=== PATIENT | male | born 1940 | race Caucasian/White ===

== ENCOUNTER → 2016-09-19 | Outpatient (CLI) | payer OTHER ==
[~2016-09-19] MED LIST: ACET-1311 PO; ALBU1AER9 PO; ALFU10TA30 PO; ALLO100T PO; ASPCH81 PO; DIGO0.1267 PO; DOCU100C31 PO; ERGO1CAP41 PO; FLNIN NAE; GABA-112 PO; LEVO88TA PO; LSX40 PO; METO-217 PO; METO2.5T PO; MULT-506 PO; OMEG10007 PO; OPTIRAY 320 IV PRN; POTA20TA16 PO; PRAV20TA2 PO; PRLSR20 PO; SPR25 PO; TRAM-10 PO; WARF5TAB90 PO
--- NOTE | 2016-09-19 14:32 | DIAGNOSTIC IMAGING REPORT ---
CT RIGHT FOOT WITH CONTRAST CT DOSE: 120.92 mGy.cm CLINICAL HISTORY: Nonhealing wound right third toe TECHNIQUE: The patient was scanned in a dynamic helical fashion during intravenous administration of 119 cc Optiray 320. COMPARISON STUDY: None. FINDINGS: There is fatty atrophy of the intrinsic muscles of the foot. There are no fluid collections to indicate an abscess. No air is identified within the soft tissues. There are mild osteoarthritic changes present the level the first metatarsal phalangeal joint. There is soft tissue edema surrounding the middle phalanx of the third toe. Evaluation of the cortex is difficult due to the patient's osteopenia. There is subtle cortical irregularity involving the middle phalanx. This could indicate osteomyelitis given history of a nonhealing wound. An MRI might be considered in follow-up for marrow evaluation. There is soft tissue edema surrounding the interphalangeal joint of the great toe. IMPRESSION: 1. No evidence of abscess 2. No evidence of air within the soft tissues 3. Moderate soft tissue thickening surrounding the interphalangeal joint of the great toe, likely inflammatory 4. Subtle cortical irregularity involving the middle phalanx of the third toe. Given the clinical history this could indicate osteomyelitis. An MRI might be considered in follow-up for marrow evaluation Electronically signed by: Dawood Mota M.D. 09/19/2016 2:31 PM Dictated Date/Time: 09/19/2016 2:19 PM
== END | disposition home or self-care (01) ==
LOC: C.CTS 13:13
PROVIDERS: ATTEND Emergency Medicine
DX: S91.104A Unspecified open wound of right lesser toe(s) without damage to nail, initial encounter (principal); X58.XXXA Exposure to other specified factors, initial encounter

== ENCOUNTER 2018-09-29 14:59 | Inpatient (IN) ==
[2018-09-29] MEDS ORDERED: SODIUM CHLORIDE 0.9% 1000ML 1,000 ML IV SCH ×2 (15:30→17:45)
--- NOTE | 2018-09-29 15:31 | XRay Report ---
XR chest 1V portable CLINICAL HISTORY: weakness mental status change COMPARISON STUDY: 03/08/2016 FINDINGS: Moderate stable cardiomegaly. Diaphragms smooth. Lungs are clear. IMPRESSION: Moderate stable cardiomegaly. Otherwise negative study. The above report was generated using voice recognition software. It may contain grammatical, syntax or spelling errors. Electronically signed by: Aris Tee M.D. 09/29/2018 3:30 PM
--- NOTE | 2018-09-29 15:58 | Emergency Department Note ---
Entered by Virgilio Charlton acting as a scribe for ED Provider Note CHIEF COMPLAINT: Weakness, staring episode, confusion HISTORY OF PRESENT ILLNESS: The patient is a 78 year old male who presents to the Emergency Room via EMS for worsening weakness and possible confusion. The patient's at bedside states the patient attempted to use the restroom and then suddenly became weak and confused. The notes that after he used the restroom he was unable to pull up his own pants or take a step. He was also not responding to her or her daughter's questions normally. This is unusual for the patient. He does have some difficultly walking at baseline, but not to this severity. There were no syncopal event. Upon EMS arrival the patient was found to be significantly tachycardic from the 150s-200s. The patient notes that he has had atrial fibrillation for the past 4-5 years. EMS administered Cardizem and fluids which improved the heart rate significantly. The confirms that the patient has been behaving normally for the past couple of days and has been eating well. He has no history of stents or catheterizations. Pt denies fevers, chills, diaphoresis, visual changes, neck pain, nausea, vomiting, abdominal pain, back pain, melena, hematochezia, urinary symptoms, numbness, weakness, lymphadenopathy, rash, or other complaints. REVIEW OF SYSTEMS: See HPI for pertinent positives and negatives. A total of ten systems were reviewed and were otherwise negative. PMHx/PSHx: A-fib HLD Hypothryroid DM CHF CAD JOHN GERD Appendectomy SOCIAL HISTORY: Patient lives at home with . PHYSICAL EXAM: GENERAL: Awake, alert, well-appearing, in no distress HENT: Normocephalic, atraumatic. Oropharynx unremarkable. EYES: PERRL. Normal conjunctiva. Sclera non-icteric. NECK: Inspection normal. Non-tender. Supple. No nuchal rigidity. FROM. No masses. RESPIRATORY: Clear to auscultation. No wheezes. No rales. Normal respiratory effort. CARDIAC: Tachycardic rate. Irregular rhythm. No murmurs. No rubs. Extremities warm and well perfused. Pulses equal. No JVD. GI: Soft, non-distended. No tenderness to palpation. No rebound or guarding. No masses. RECTAL: Deferred. MUSCULOSKELETAL: Atraumatic. Chest examination reveals no tenderness. The back is symmetrical on inspection without obvious abnormality. There is no CVA tenderness to palpation. No joint edema. LOWER EXTREMITIES: Calves are equal size bilaterally and non-tender. No edema. No discoloration. NEURO: Normal sensorium. No sensory or motor deficits noted. SKIN: No rash or jaundice noted. There is chronic venous statsis discoloration to BLE. SECONDARY EXAM: The right leg shows warmth and erythema from the Achilles up to the back of the right knee. The area is mildly tender. EMERGENCY DEPARTMENT COURSE: 1503: Past medical records reviewed. The patient was evaluated in room B8, and a complete history and physical examination were performed. 1636: I updated the patient at this time. The informed me that the patient has been complaining of pain to the back of the right leg. The right leg shows warmth and erythema from the Achilles up to the back of the right knee. The area is mildly tender. The adds that this was not there last night. 1700: I reviewed the patient's case with Brionna Ly [facility] Hospitalist ZULY. She will evaluate the patient for further management. MEDICAL DECISION MAKING: Prior records/ancillary studies reviewed. Prehospital medical command was done by me. The patient was in a irregular wide-complex tachycardia. Prior records indicated the patient had A. fib with aberrant conduction as well as PVCs. The patient had normal saline and Cardizem administered under my direction. This helped control his heart rate. His blood pressure was adequate. Nursing notes reviewed and agree them. Additional history obtained from the patient's . The patient was generally weak. He was not responding to her. He was pale. She denied any true complete syncope. The patient's history was concerning for altered mental status, weakness, and tachycardia. Differential diagnosis: Etiologies such as dysrhythmia, CVA, TIA, infection, hypoglycemia, electrolyte abnormalities, cardiac sources, intracerebral event, toxicologic, neurologic, as well as others were entertained. Physical examination: As above. Nonfocal. No drift. ER treatment provided: IV Lock Continuous desk monitor Normal saline hydration at 125 mL an hour Normal saline bolus IV Rocephin IV daptomycin On reassessment the patient felt better. Diagnostics interpretation by me: ECG: A. fib with RVR. No acute ischemia seen. The labs revealed a significant leukocytosis of 27,000. The patient's lactate level was elevated. Chemistry panel revealed hyperglycemia. Hyponatremia noted chemistry panel. Minimal elevation of LFTs. Ketosis without acidosis present. The patient has a therapeutic INR. Imaging studies: Head CT and chest x-ray were negative. Consultation: A consultation was placed with the hospitalist. The case was discussed and diagnostics were reviewed. The patient was evaluated in the ER for further treatment. IMPRESSION: A. fib with RVR Right leg cellulitis Sepsis Altered mental status Generalized weakness Near syncope PLAN: Admitted to [facility] service The scribe's documentation has been prepared under my direction and personally reviewed by me in its entirety. I confirm that the note above accurately reflects all work, treatment, procedures, and medical decision making performed by me. Impression & Plan Atrial fibrillation with RVR, Altered mental status, Weakness, LBBB (left bundle branch block), Cellulitis of right leg Past Med/Surg History Social History Current Living Situation: Family Other Information That Helps Us Care for You: No Feels Safe at Home: Yes Safety Concerns: Feels Safe At This Time Smoking Status: Never smoker Hx Alcohol Use: No Hx Substance Use: No Beliefs That Will Affect Care: None Preferred Language: Persian Communication Ability: Effective Business Support Manager Required: No Results & Data Vital Signs Vital Signs - 24 hr 09/29/18 15:11 09/29/18 15:16 09/29/18 15:18 Temperature 37.0 C Temperature Source Oral Sepsis Recent Fever Within 48 Hours No Sepsis New/Unexplained Change in Mental Status No Sepsis Action Taken by Nursing No Action Required Pulse Rate 106 H 95 H Pulse Rate [Right Radial] Respiratory Rate 26 H 24 Respiratory Effort / Characteristics Non-Labored Spontaneous Respiratory Depth Normal Respiratory Pattern Blood Pressure 104/75 104/75 Blood Pressure [Right Arm] Blood Pressure Mean 84 84 Blood Pressure Mean [Right Arm] Pulse Oximetry 94 93 93 Oxygen Delivery Method Room Air Room Air 09/29/18 15:19 09/29/18 15:30 09/29/18 16:00 Temperature Temperature Source Sepsis Recent Fever Within 48 Hours Sepsis New/Unexplained Change in Mental Status Sepsis Action Taken by Nursing Pulse Rate 100 H 95 H 90 Pulse Rate [Right Radial] Respiratory Rate 30 H 29 H 21 Respiratory Effort / Characteristics Respiratory Depth Respiratory Pattern Blood Pressure 127/69 Blood Pressure [Right Arm] Blood Pressure Mean 88 Blood Pressure Mean [Right Arm] Pulse Oximetry 94 Oxygen Delivery Method 09/29/18 16:01 09/29/18 16:34 09/29/18 16:35 Temperature Temperature Source Sepsis Recent Fever Within 48 Hours Sepsis New/Unexplained Change in Mental Status Sepsis Action Taken by Nursing Pulse Rate 104 H 95 H 100 H Pulse Rate [Right Radial] Respiratory Rate 25 H 10 L 18 Respiratory Effort / Characteristics Respiratory Depth Respiratory Pattern Blood Pressure 148/71 H 116/62 Blood Pressure [Right Arm] Blood Pressure Mean 96 80 Blood Pressure Mean [Right Arm] Pulse Oximetry 95 94 Oxygen Delivery Method 09/29/18 17:00 09/29/18 17:30 09/29/18 18:00 Temperature Temperature Source Sepsis Recent Fever Within 48 Hours Sepsis New/Unexplained Change in Mental Status Sepsis Action Taken by Nursing Pulse Rate 105 H 98 H 90 Pulse Rate [Right Radial] Respiratory Rate 19 17 21 Respiratory Effort / Characteristics Respiratory Depth Respiratory Pattern Blood Pressure 110/75 122/75 Blood Pressure [Right Arm] Blood Pressure Mean 86 90 Blood Pressure Mean [Right Arm] Pulse Oximetry 95 95 96 Oxygen Delivery Method 09/29/18 18:01 09/29/18 18:30 09/29/18 19:00 Temperature Temperature Source Sepsis Recent Fever Within 48 Hours Sepsis New/Unexplained Change in Mental Status Sepsis Action Taken by Nursing Pulse Rate 94 H 96 H 97 H Pulse Rate [Right Radial] Respiratory Rate Respiratory Effort / Characteristics Respiratory Depth Respiratory Pattern Blood Pressure 120/67 126/76 Blood Pressure [Right Arm] Blood Pressure Mean 84 92 Blood Pressure Mean [Right Arm] Pulse Oximetry 97 96 97 Oxygen Delivery Method 09/29/18 19:01 09/29/18 19:30 09/29/18 20:00 Temperature Temperature Source Sepsis Recent Fever Within 48 Hours Sepsis New/Unexplained Change in Mental Status Sepsis Action Taken by Nursing Pulse Rate 93 H 80 88 Pulse Rate [Right Radial] Respiratory Rate 18 19 22 Respiratory Effort / Characteristics Respiratory Depth Respiratory Pattern Blood Pressure 98/62 L Blood Pressure [Right Arm] Blood Pressure Mean 74 Blood Pressure Mean [Right Arm] Pulse Oximetry 96 97 95 Oxygen Delivery Method 09/29/18 20:21 09/29/18 21:01 09/29/18 21:43 Temperature 37.9 C H 37.9 C H Temperature Source Oral Oral Sepsis Recent Fever Within 48 Hours Sepsis New/Unexplained Change in Mental Status Sepsis Action Taken by Nursing Pulse Rate 89 Pulse Rate [Right Radial] 95 H Respiratory Rate 12 16 18 Respiratory Effort / Characteristics Non-Labored Respiratory Depth Normal Normal Respiratory Pattern Regular Blood Pressure 100/70 Blood Pressure [Right Arm] 115/69 115/69 Blood Pressure Mean Blood Pressure Mean [Right Arm] 84 84 Pulse Oximetry 95 93 93 Oxygen Delivery Method Room Air Room Air Room Air Home Medications Current Medication List: was personally reviewed by me Laboratory Data Attestation: I reviewed the patient's lab results. Result diagrams: 09/29/18 15:44 09/29/18 15:44 Lab Results 09/29/18 09/29/18 09/29/18 Range/Units 15:44 15:44 15:44 WBC 27.21 H (4.8-10.8) K/uL RBC 4.96 (4.7-6.1) M/uL Hgb 17.2 (14.0-18.0) g/dL Hct 48.6 (42-52) % MCV 98.0 (80-100) fL MCH 34.7 H (25-34) pg MCHC 35.4 (32-36) g/dL RDW Std Deviation 49.7 H (36.4-46.3) fL RDW Coeff of Shilpi 13.9 (11.5-14.5) % Plt Count 131 (130-400) K/uL MPV 11.9 H (7.4-10.4) fL Immature Gran % (Auto) 0.5 % Neut % (Auto) 84.9 % Lymph % (Auto) 7.7 % [place] % (Auto) 6.7 % Eos % (Auto) 0.1 % Baso % (Auto) 0.1 % Immature Gran # (Auto) 0.13 H (0.00-0.02) K/uL Neut # (Auto) 23.12 H (1.4-6.5) K/uL Lymph # (Auto) 2.09 (1.2-3.4) K/uL [place] # (Auto) 1.82 H (0.11-0.59) K/uL Eos # (Auto) 0.02 (0-0.5) K/uL Baso # (Auto) 0.03 (0-0.2) K/uL PT 26.6 H (9.0-12.0) Seconds INR 2.8 H (0.9-1.1) Sodium 128 L (136-145) mmol/L Potassium 4.4 (3.5-5.1) mmol/L Chloride 95 L (98-107) mmol/L Carbon Dioxide 23 (21-32) mmol/L Anion Gap 10.0 (3-11) BUN 29 H (7-18) mg/dl Creatinine 1.20 (0.6-1.4) mg/dl Est Cr Clr Drug Dosing 68.6 ml/min Est GFR ( Amer) 66.7 Est GFR (Non-Af Amer) 57.6 BUN/Creatinine Ratio 24.0 H (10-20) Glucose 310 H (70-99) mg/dl POC Glucose (70-99) POC Lactic Acid Theo (0.90-1.70) mmol/L Lactate (0.4-2.0) mmol/L Calcium 8.1 L (8.5-10.1) mg/dl Magnesium 1.8 (1.8-2.4) mg/dl Total Bilirubin 1.1 H (0.2-1) mg/dl AST 43 H (15-37) U/L ALT 53 (12-78) U/L Alkaline Phosphatase 97 (45-117) U/L Total Creatine Kinase 50 (39-308) U/L Troponin I < 0.015 (0-0.045) ng/ml Total Protein 7.0 (6.4-8.2) gm/dl Albumin 3.5 (3.4-5.0) gm/dl Globulin 3.5 (2.5-4.0) gm/dl Albumin/Globulin Ratio 1.0 (0.9-2) Beta-Hydroxybutyric Acd 3.88 H (0.2-2.81) mg/dl TSH 1.130 (0.300-4.500) uIu/ml Urine Color Urine Appearance (Clear) Urine pH (4.5-7.5) Ur Specific [place] (1.000-1.030) Urine Protein (Negative) Urine Glucose (UA) (Negative) Urine Ketones (Negative) Urine Blood (Negative) Urine Nitrite (Negative) Urine Bilirubin (Negative) Urine Urobilinogen (Negative) Ur Leukocyte Esterase (Negative) Urine WBC (Auto) (0-5) /hpf Urine RBC (Auto) (0-4) /hpf U Hyaline Cast (Auto) (0-5) /lpf U Epithel Cells (Auto) (0-5) /lpf Urine Bacteria (Auto) (Negative) Digoxin (0.8-2.0) ng/ml 09/29/18 09/29/18 09/29/18 Range/Units 17:26 18:48 21:22 WBC (4.8-10.8) K/uL RBC (4.7-6.1) M/uL Hgb (14.0-18.0) g/dL Hct (42-52) % MCV (80-100) fL MCH (25-34) pg MCHC (32-36) g/dL RDW Std Deviation (36.4-46.3) fL RDW Coeff of Shilpi (11.5-14.5) % Plt Count (130-400) K/uL MPV (7.4-10.4) fL Immature Gran % (Auto) % Neut % (Auto) % Lymph % (Auto) % [place] % (Auto) % Eos % (Auto) % Baso % (Auto) % Immature Gran # (Auto) (0.00-0.02) K/uL Neut # (Auto) (1.4-6.5) K/uL Lymph # (Auto) (1.2-3.4) K/uL [place] # (Auto) (0.11-0.59) K/uL Eos # (Auto) (0-0.5) K/uL Baso # (Auto) (0-0.2) K/uL PT (9.0-12.0) Seconds INR (0.9-1.1) Sodium (136-145) mmol/L Potassium (3.5-5.1) mmol/L Chloride (98-107) mmol/L Carbon Dioxide (21-32) mmol/L Anion Gap (3-11) BUN (7-18) mg/dl Creatinine (0.6-1.4) mg/dl Est Cr Clr Drug Dosing ml/min Est GFR ( Amer) Est GFR (Non-Af Amer) BUN/Creatinine Ratio (10-20) Glucose (70-99) mg/dl POC Glucose 289 H (70-99) POC Lactic Acid Theo 4.99 H (0.90-1.70) mmol/L Lactate (0.4-2.0) mmol/L Calcium (8.5-10.1) mg/dl Magnesium (1.8-2.4) mg/dl Total Bilirubin (0.2-1) mg/dl AST (15-37) U/L ALT (12-78) U/L Alkaline Phosphatase (45-117) U/L Total Creatine Kinase (39-308) U/L Troponin I (0-0.045) ng/ml Total Protein (6.4-8.2) gm/dl Albumin (3.4-5.0) gm/dl Globulin (2.5-4.0) gm/dl Albumin/Globulin Ratio (0.9-2) Beta-Hydroxybutyric Acd (0.2-2.81) mg/dl TSH (0.300-4.500) uIu/ml Urine Color Yellow Urine Appearance Clear (Clear) Urine pH 5.0 (4.5-7.5) Ur Specific [place] 1.019 (1.000-1.030) Urine Protein Negative (Negative) Urine Glucose (UA) 1+ H (Negative) Urine Ketones Negative (Negative) Urine Blood Negative (Negative) Urine Nitrite Negative (Negative) Urine Bilirubin Negative (Negative) Urine Urobilinogen Negative (Negative) Ur Leukocyte Esterase Trace H (Negative) Urine WBC (Auto) 1-5 (0-5) /hpf Urine RBC (Auto) 0-4 (0-4) /hpf U Hyaline Cast (Auto) 1-5 (0-5) /lpf U Epithel Cells (Auto) 10-20 H (0-5) /lpf Urine Bacteria (Auto) Negative (Negative) Digoxin (0.8-2.0) ng/ml 09/29/18 09/29/18 09/29/18 Range/Units 21:51 21:51 21:51 WBC (4.8-10.8) K/uL RBC (4.7-6.1) M/uL Hgb (14.0-18.0) g/dL Hct (42-52) % MCV (80-100) fL MCH (25-34) pg MCHC (32-36) g/dL RDW Std Deviation (36.4-46.3) fL RDW Coeff of Shilpi (11.5-14.5) % Plt Count (130-400) K/uL MPV (7.4-10.4) fL Immature Gran % (Auto) % Neut % (Auto) % Lymph % (Auto) % [place] % (Auto) % Eos % (Auto) % Baso % (Auto) % Immature Gran # (Auto) (0.00-0.02) K/uL Neut # (Auto) (1.4-6.5) K/uL Lymph # (Auto) (1.2-3.4) K/uL [place] # (Auto) (0.11-0.59) K/uL Eos # (Auto) (0-0.5) K/uL Baso # (Auto) (0-0.2) K/uL PT (9.0-12.0) Seconds INR (0.9-1.1) Sodium (136-145) mmol/L Potassium (3.5-5.1) mmol/L Chloride (98-107) mmol/L Carbon Dioxide (21-32) mmol/L Anion Gap (3-11) BUN (7-18) mg/dl Creatinine (0.6-1.4) mg/dl Est Cr Clr Drug Dosing ml/min Est GFR ( Amer) Est GFR (Non-Af Amer) BUN/Creatinine Ratio (10-20) Glucose (70-99) mg/dl POC Glucose (70-99) POC Lactic Acid Theo (0.90-1.70) mmol/L Lactate 4.5 H* (0.4-2.0) mmol/L Calcium (8.5-10.1) mg/dl Magnesium (1.8-2.4) mg/dl Total Bilirubin (0.2-1) mg/dl AST (15-37) U/L ALT (12-78) U/L Alkaline Phosphatase (45-117) U/L Total Creatine Kinase (39-308) U/L Troponin I < 0.015 (0-0.045) ng/ml Total Protein (6.4-8.2) gm/dl Albumin (3.4-5.0) gm/dl Globulin (2.5-4.0) gm/dl Albumin/Globulin Ratio (0.9-2) Beta-Hydroxybutyric Acd (0.2-2.81) mg/dl TSH (0.300-4.500) uIu/ml Urine Color Urine Appearance (Clear) Urine pH (4.5-7.5) Ur Specific [place] (1.000-1.030) Urine Protein (Negative) Urine Glucose (UA) (Negative) Urine Ketones (Negative) Urine Blood (Negative) Urine Nitrite (Negative) Urine Bilirubin (Negative) Urine Urobilinogen (Negative) Ur Leukocyte Esterase (Negative) Urine WBC (Auto) (0-5) /hpf Urine RBC (Auto) (0-4) /hpf U Hyaline Cast (Auto) (0-5) /lpf U Epithel Cells (Auto) (0-5) /lpf Urine Bacteria (Auto) (Negative) Digoxin 1.1 (0.8-2.0) ng/ml Administered Medications Discontinued Medications Sodium Chloride (Nss 1000ml) 1,000 mls @ 125 mls/hr IV .Q8H GALO Stop: 09/29/18 23:29 Last Admin: 09/29/18 16:35 Dose: 125 mls/hr Ceftriaxone Sodium (Rocephin) 1,000 mg in 50 mls @ 100 mls/hr IV NOW STA Stop: 09/29/18 17:24 Last Infusion: 09/29/18 19:25 Dose: 0 mls/hr Admin: 09/29/18 18:12 Dose: 100 mls/hr Sodium Chloride (Nss 1000ml) 1,000 mls @ 999 mls/hr IV .Q1H1M GALO Stop: 09/29/18 18:45 Last Infusion: 09/29/18 19:25 Dose: 0 mls/hr Admin: 09/29/18 18:12 Dose: 999 mls/hr Daptomycin 575 mg/ Syringe 11.5 mls @ 5.75 mls/min IV NOW ONE Stop: 09/29/18 17:33 Last Admin: 09/29/18 18:12 Dose: 5.75 mls/min Imaging Data Attestation: I personally reviewed and interpreted this imaging study as follows : Radiologist's Impression: CT head/brain wo con CT DOSE: 847.48 mGycm HISTORY: Mental status change AMS TECHNIQUE: Multiaxial CT images of the head were performed without the use of intravenous contrast. A dose lowering technique was utilized adhering to the principles of ALARA. Comparison: 03/10/2016 Findings: The paranasal sinuses and mastoid air cells are clear. The calvarium and skull base are intact. The ventricles and sulci are within normal limits. There is no mass, hematoma, midline shift, or acute infarct. Impression: No acute intracranial abnormality. The above report was generated using voice recognition software. It may contain grammatical, syntax or spelling errors. Electronically signed by: Aris Tee M.D. 09/29/2018 4:36 PM XR chest 1V portable CLINICAL HISTORY: weakness mental status change COMPARISON STUDY: 03/08/2016 FINDINGS: Moderate stable cardiomegaly. Diaphragms smooth. Lungs are clear. IMPRESSION: Moderate stable cardiomegaly. Otherwise negative study. The above report was generated using voice recognition software. It may contain grammatical, syntax or spelling errors. Electronically signed by: Aris Tee M.D. 09/29/2018 3:30 PM ECG Data Attestation: I personally reviewed and interpreted this ECG as follows: Indication: altered mental status and weakness Rate (beats per minute): 108 Rhythm: atrial fibrillation (RVR) Findings: + other (LAD, poor r-wave progression) and + Q waves (inferior); no ST elevation and no ectopy Prescription Drug Monitoring Prescription Drug Findings: Pre-hospital EKG shows A-fib with RVR. LBBB Pattern. Aberrant conduction, no JOSEPH, no PVCs Blood Pressure Blood Pressure Findings: Normal blood pressure Discharge Plan Visit Data *Final* Discharge Date/Time: 09/29/18 20:21 Chief Complaint: Syncope Stated Complaint: syncope ED Provider: Jitendra Perez Discharge Problem: Atrial fibrillation with RVR, Altered mental status, Weakness, LBBB (left bundle branch block), Cellulitis of right leg Patient Disposition: Admitted As Inpatient Discharge Instructions Interventions: ED Discharge Assessment Last Done: 09/29/18 20:21 The scribe's documentation has been prepared under my direction and personally reviewed by me in its entirety. I confirm that the note above accurately reflects all work, treatment, procedures, and medical decision making performed by me.
[2018-09-29 16:05] LABS: Hematocrit (blood only) 48.6 % (42-52); Hemoglobin 17.2 g/dL (14.0-18.0); Mean Corpuscular Hgb Conc 35.4 g/dL (32-36); Mean Platelet Volume 11.9 fL (7.4-10.4); Platelet Count 131 K/uL (130-400); RDW Coefficient of Variation 13.9 % (11.5-14.5); RDW Standard Deviation 49.7 fL (36.4-46.3); Red Blood Count 4.96 M/uL (4.7-6.1); White Blood Count 27.21 K/uL (4.8-10.8)
[2018-09-29 16:06] LABS: INR 2.8 (0.9-1.1); Prothrombin Time 26.6 Seconds (9.0-12.0)
[2018-09-29 16:10] LABS: Alanine Aminotransferase 53 U/L (12-78); Albumin Level 3.5 gm/dl (3.4-5.0); Aspartate Aminotransferase 43 U/L (15-37); Blood Urea Nitrogen 29 mg/dl (7-18); Calcium 8.1 mg/dl (8.5-10.1); Carbon Dioxide 23 mmol/L (21-32); Chloride 95 mmol/L (98-107); Creatinine Clr Calc Pharmacy 68.6 ml/min; Est GFR (African American) 66.7; Est GFR (Non-African American) 57.6; Glucose 310 mg/dl (70-99); Magnesium 1.8 mg/dl (1.8-2.4); Potassium 4.4 mmol/L (3.5-5.1); Sodium 128 mmol/L (136-145)
[2018-09-29 16:13] LABS: Bilirubin,Total 1.1 mg/dl (0.2-1); Globulin 3.5 gm/dl (2.5-4.0)
[2018-09-29 16:16] LABS: Basophils # (auto) 0.03 K/uL (0-0.2); Basophils % (auto) 0.1 %; Eosinophils # (auto) 0.02 K/uL (0-0.5); Eosinophils % (auto) 0.1 %; Immature Granulocytes # (auto) 0.13 K/uL (0.00-0.02); Immature Granulocytes % (auto) 0.5 %; Lymphocytes # (auto) 2.09 K/uL (1.2-3.4); Lymphocytes % (auto) 7.7 %; Monocytes # (auto) 1.82 K/uL (0.11-0.59); Monocytes % (auto) 6.7 %; Neutrophils # (auto) 23.12 K/uL (1.4-6.5); Neutrophils % (auto) 84.9 %
[2018-09-29 16:27] LABS: Alkaline Phosphatase 97 U/L (45-117); Creatine Kinase 50 U/L (39-308); Troponin I < 0.015 ng/ml (0-0.045)
--- NOTE | 2018-09-29 16:38 | CT Scan Report ---
CT head/brain wo con CT DOSE: 847.48 mGycm HISTORY: Mental status change AMS TECHNIQUE: Multiaxial CT images of the head were performed without the use of intravenous contrast. A dose lowering technique was utilized adhering to the principles of ALARA. Comparison: 03/10/2016 Findings: The paranasal sinuses and mastoid air cells are clear. The calvarium and skull base are int act. The ventricles and sulci are within normal limits. There is no mass, hematoma, midline shift, or acute infarct. Impression: No acute intracranial abnormality. The above report was generated using voice recognition software. It may contain grammatical, syntax or spelling errors. Electronically signed by: Aris Tee M.D. 09/29/2018 4:36 PM
[2018-09-29] MEDS ORDERED: cefTRIAXone SODIUM 1,000 MG/50 ML BAG IV STA (16:55)
[2018-09-29] MEDS ORDERED: DAPTOmycin 575 MG in SYRINGE 0 ML IV ONE (17:32)
[2018-09-29 19:05] LABS: Appearance Urine Clear (Clear); Bacteria Urine Automated Negative (Negative); Bilirubin Urine Negative (Negative); Color Urine Yellow; Glucose Urine UA 1+ (Negative); Ketones Urine Negative (Negative); Leukocyte Esterase Urine Trace (Negative); Nitrite Urine Negative (Negative); Protein Urine Negative (Negative); Specific Gravity Urine 1.019 (1.000-1.030); Urobilinogen Urine Negative (Negative)
[2018-09-29] MEDS ORDERED: CARBOHYDRATES FOR HYPOGLYCEMIA PO PRN (21:01)
[2018-09-29] MEDS ORDERED: ACETAMINOPHEN 325 MG TAB PO PRN (21:01)
[2018-09-29] MEDS ORDERED: DEXTROSE 50% 50 ML SYRINGE IV PRN (21:01)
[2018-09-29] MEDS ORDERED: GLUCOSE 40% GEL 15 GM TUBE PO PRN (21:01)
[2018-09-29] MEDS ORDERED: GLUCAGON FOR INJ 1 MG VIAL SQ PRN (21:01)
[2018-09-29] MEDS ORDERED: NITROGLYCERIN SL 0.4 MG/TAB TAB SL PRN (21:01)
[2018-09-29] MEDS ORDERED: GLUCOSE 10 TABS/TUBE PO PRN (21:01)
[2018-09-29] MEDS ORDERED: TRAMADOL HCL 50 MG TABLET PO PRN (21:01)
--- NOTE | 2018-09-29 21:12 | History & Physical Report ---
Date of Service September 29, 2018 Assessment & Plan (1) Atrial fibrillation: Chronic a-fib on coumadin. Onset of AMS with noted A-fib RVR today. Was given Cardizem 10 mg IV and IV fluids in route by EMS. Upon arrival to ER pulse in the 90's-low 100s and patient without any CP, SOB or palpitations. INR: 2.8. Negative initial troponin. TSH: 1.1 Hx echo: 05/2018: EF: 53%, no significant valvular pathology -may be secondary to underlying infection -continue coumadin, monitor INR -Continue metoprolol -Continue digoxin -Pending digoxin level -Echo -Cardiology consult, appreciate recommendations (2) Cellulitis: Noted RLE erythema, warmth and discomfort today WBC: 27, POC lactic acid: 4.9 -In ER given Rocephin, daptomycin, IVF -pending repeat lactic acid -pending blood culture -will hold on further IVF given hx cardiomyopathy -Cefepime, daptomycin -pending doppler RLE to r/o DVT, however INR is Therapeutic -ID consult since on daptomycin (3) Encephalopathy: Reported altered mental status noted today prior to arrival. Upon my assessment in ER pt alert and oriented x 3 and family reports is back to baseline. probable metabolic encephalopathy -monitor (4) Diabetes mellitus, type 2: HbA1c: 8 on 05/21/18 -NovoLog, Lantus sliding scale per protocol (5) Hyponatremia: Na: 131 corrected for glucose: 310 -monitor (6) HTN (hypertension): -continue metoprolol, losartan -will continue lasix, spironolactone in am -is on metolzaone twice weekly, had dose today (7) HLD (hyperlipidemia): -hold statin while on daptomycin (8) Coronary artery disease: No CP. Negative troponin -continue ASA, metoprolol -hold statin while on daptomycin (9) Obstructive sleep apnea: -CPAP HS (10) Gout: -continue allopurinol -hold colchicine and recheck bmp in am (11) Hypothyroidism: TSH: 1.1 -continue levothyroxine (12) BPH (benign prostatic hyperplasia): -continue alfuzosin (13) GERD (gastroesophageal reflux disease): -continue PPI DVT Prophylaxis -On coumadin with therapeutic INR Full Code as per discussion with pt and family, however would not want prolonged life support if poor prognosis Follows with Dr Scherer for routine care Pt was seen with Dr Beckham. See addendum History of Present Illness Chief Complaint: AMS Primary Care Provider: [place] Scherer Pt is 78 y/o M with PMH A-fib s/p cardioversion in 2009, 2012 and unsuccessful in 2013, CAD, h/o nonischemic congestive cardiomyopathy, gout, HTN, HLD, hypothyroidism, DM II, JOHN on CPAP, obesity, venous insufficiency presented to ER with c/o altered mental status, weakness.Reports patient was at baseline this morning and ate breakfast. Reports BSG has been running in 200s and was in 200s today. States patient went to the bathroom and was walking back from bathroom had a near syncopal episode. Generalized weakness and was noted to have altered mental status with confusion. Was found to be in atrial fibrillation with reported rate up to 180s by EMS and was given Cardizem 10 IV and IVF in route. Since arrival to ER patient mental status back to baseline. Patient is denying any CP, SOB, dizziness, palpitations.Reports chronic cough and postnasal drip, denies any increase. Since being in ER has been c/o R lower leg pain and it was noted to have some erythema to RLE. Reports hit right chavez on something a few days ago and has scab. Denies fever/chills, diaphoresis, N/V/ D/C, CORTES,vision changes, neck pain, sore throat, choking, otalgia, abdominal pain , paresthesias, increased extremity edema, other rashes, urinary symptoms. Allergies Allergy/AdvReac Type Severity Reaction Status Date / Time No Known Allergies Allergy Verified 09/29/18 15:36 Home Medications Home Medications Medication Instructions Recorded Confirmed Type albuterol sulfate [ProAir HFA] 2 puff INHALATION QID PRN 09/29/18 09/29/18 History alfuzosin 10 mg PO QPM 09/29/18 09/29/18 History allopurinol 300 mg PO QAM 09/29/18 09/29/18 History aspirin 81 mg PO QAM 09/29/18 09/29/18 History cholecalciferol (vitamin D3) 1,000 units PO QAM 09/29/18 09/29/18 History [Vitamin D3] colchicine [Colcrys] 0.6 mg PO BID 09/29/18 09/29/18 History diclofenac sodium 2 g TOPICAL QID 09/29/18 09/29/18 History digoxin 250 mcg PO 5XWK 09/29/18 09/29/18 History docusate sodium 100 mg PO QAM 09/29/18 09/29/18 History fluticasone [Flonase Allergy 2 spray INTRANASAL BID PRN 09/29/18 09/29/18 History Relief] furosemide 40 mg PO QPM 09/29/18 09/29/18 History furosemide 80 mg PO QAM 09/29/18 09/29/18 History gabapentin 100 mg PO BID 09/29/18 09/29/18 History levothyroxine 88 mcg PO QAM 09/29/18 09/29/18 History losartan 12.5 mg PO QAM 09/29/18 09/29/18 History metformin 500 mg PO DAILY 09/29/18 09/29/18 History metolazone 2.5 mg PO 2XWK 09/29/18 09/29/18 History metoprolol succinate 100 mg PO QPM 09/29/18 09/29/18 History metoprolol succinate 150 mg PO QAM 09/29/18 09/29/18 History multivitamin 1 tab PO QAM 09/29/18 09/29/18 History omeprazole 20 mg PO QAM 09/29/18 09/29/18 History potassium chloride [Klor-Con M20] 10 meq PO 2XWK 09/29/18 09/29/18 History potassium chloride [Klor-Con M20] 40 meq PO QAM 09/29/18 09/29/18 History pravastatin 40 mg PO HS 09/29/18 09/29/18 History spironolactone 25 mg PO BID 09/29/18 09/29/18 History tramadol 50 mg PO BID PRN 09/29/18 09/29/18 History warfarin 2.5 mg PO 2XWK 09/29/18 09/29/18 History warfarin 5 mg PO 5XWK 09/29/18 09/29/18 History Past Med/Surg History Medical History BPH (benign prostatic hyperplasia) (Chronic) Gout (Chronic) HLD (hyperlipidemia) (Chronic) HTN (hypertension) (Chronic) Atrial fibrillation (Chronic) Dyslipidemia (Chronic) Hypothyroidism (Chronic) History of adenomatous polyp of colon (Chronic) Diabetes mellitus, type 2 (Chronic) History of basal cell carcinoma (Chronic) Systolic CHF, chronic (Chronic) Obstructive sleep apnea (Chronic) Coronary artery disease (Chronic) "nonocclusive disease per cardiac cath 2009" GERD (gastroesophageal reflux disease) (Chronic) Pulmonary nodule (Chronic) "6 mm RLL; incidental finding on CT abdomen 03/07/16" Diabetic peripheral neuropathy associated with type 2 diabetes mellitus Cellulitis Hyponatremia Surgical History Status post appendectomy (Chronic) Status post inguinal hernia repair (Chronic) Family History Other HTN (hypertension) Stroke Social History Current Living Situation: Family Other Information That Helps Us Care for You: No Feels Safe at Home: Yes Safety Concerns: Feels Safe At This Time Smoking Status: Never smoker Hx Alcohol Use: No Hx Substance Use: No Beliefs That Will Affect Care: None Communication Ability: Effective Review of Systems All systems reviewed & are unremarkable except as noted in HPI & below Physical Exam 2 Vital Signs (Past 24 Hours): Last Vital Signs Temp 37.0 C 09/29/18 15:16 Pulse 89 09/29/18 20:21 Resp 12 09/29/18 20:21 BP 100/70 09/29/18 20:21 Pulse Ox 95 09/29/18 20:21 Physical Exam: General: no acute distress, WDWN Head: normocephalic, atraumatic Eyes: PERRL, EOM's intact, conjunctiva non-injected, anicteric ENT: normal inspection external ears, nose, mucous membranes moist Neck: supple, trachea midline Lungs: clear, no respiratory distress, no wheezing/rhonchi/rales CV: irregularly irregular, rate 90, no significant pretibial edema Abd: normal BS, soft, non-tender Ext:chronic venous stasis changes bilateral lower extremities, R lower leg with erythema and warmth and tenderness to palpation, +scabs noted anterior right lower leg, ROM intact, distal pulses intact, brisk capillary refill Neuro: A&O x 3, no focal deficits noted, normal affect Skin: warm, dry, RLE as above Results & Data Laboratory Results Short CBC 09/29/18 Range/Units 15:44 WBC 27.21 H (4.8-10.8) K/uL Hgb 17.2 (14.0-18.0) g/dL Hct 48.6 (42-52) % Plt Count 131 (130-400) K/uL BMP 09/29/18 15:44 Sodium 128 L Potassium 4.4 Chloride 95 L Carbon Dioxide 23 BUN 29 H Creatinine 1.20 Glucose 310 H Calcium 8.1 L Cardiac Enzymes 09/29/18 Range/Units 15:44 Total Creatine Kinase 50 (39-308) U/L Troponin I < 0.015 (0-0.045) ng/ml Liver Function 09/29/18 Range/Units 15:44 Total Bilirubin 1.1 H (0.2-1) mg/dl AST 43 H (15-37) U/L ALT 53 (12-78) U/L Alkaline Phosphatase 97 (45-117) U/L Albumin 3.5 (3.4-5.0) gm/dl Urine 09/29/18 Range/Units 18:48 Urine Color Yellow Urine Appearance Clear (Clear) Urine pH 5.0 (4.5-7.5) Ur Specific [place] 1.019 (1.000-1.030) Urine Protein Negative (Negative) Urine Glucose (UA) 1+ H (Negative) Diagnostic Findings CT HEAD: Impression: No acute intracranial abnormality. CXR: IMPRESSION: Moderate stable cardiomegaly. Otherwise negative study. ECG Additional Comments: Read by cardiology: Atrial fibrillation with rapid ventricular response Left axis deviation Inferior infarct , age undetermined Possible Anterior infarct , age undetermined Abnormal ECG When compared with ECG of 18-FEB-2018 01:47, Non-specific change in ST segment in Inferior leads Confirmed by JAYDEN BRIONES ([id number]) on 09/29/2018 4:39:20 PM Supervising Physician Co-Signing Physician Notes Pt was seen and examined. Agreed with Phyllis CARUSO exam, assessment and plan. 78 y /o M with [facility] A-fib s/p cardioversion in 2009, 2012 and unsuccessful in 2013, CAD, h/o nonischemic congestive cardiomyopathy, gout, HTN, HLD, hypothyroidism, DM II, JOHN on CPAP, obesity, venous insufficiency presented to ER with c/o altered mental status, weakness. He has been having generalized weakness and was noted to have altered mental status with confusion. He was found to be in Afib and cardizem 10mg IV was given. He also complaints of right LE redness, tenderness and swelling that started today. WBC on admission was elevated at 27 with elevated lactic acid. Meet sepsis criteria on admission with elevating WBC , tachycardia and elevating lactic acid and present with RLE cellulitis. Received IV rocephin and dapto in the ER. Will continue IV dapto and start on IV cefepime. Will follow lactic acid and WBC. Will consult cardio for the Afib. Continue monitor in tele. MD Chapincito
[2018-09-29] MEDS ORDERED: CEFEPIME CONSULT ACTIVE PRN (21:34)
[2018-09-29] MEDS ORDERED: DAPTOMYCIN CONSULT ACTIVE PRN (21:34)
--- NOTE | 2018-09-29 22:26 | Ultrasound Report ---
RIGHT LOWER EXTREMITY VENOUS DOPPLER CLINICAL HISTORY: edema/erythema r/o DVT COMPARISON STUDY: Bilateral lower extremity venous Doppler ultrasound April 26, 2010. TECHNIQUE: Sonography of the deep venous system of the right lower extremity was performed. Compress ion and augmentation were evaluated. FINDINGS: The right common femoral, superficial femoral and popliteal veins were compressible. Augme ntation was normal. Flow was shown within the deep calf vessels although the calf vessels were subopt imally assessed on this exam. IMPRESSION: No evidence of deep venous thrombus within the right lower extremity although calf vessel s suboptimally assessed on this exam. Electronically signed by: Victor Hugo Fallon M.D. 09/29/2018 10:25 PM
[2018-09-29] MEDS: INSULIN GLARGINE SOLOSTAR 100 UNITS/ML 3 ML PEN SC SCH (22:45)
[2018-09-29] MEDS: INSULIN ASPART 100 UNITS/ML 3 ML PEN SC SCH (22:46)
[2018-09-29] MEDS: METOPROLOL SUCC 50MG EXT REL TAB PO SCH (22:47)
[2018-09-29] MEDS: CEFEPIME 2,000 MG in SYRINGE 7.5 ML IV SCH (22:48)
[2018-09-29] MEDS: GABAPENTIN 100 MG CAP PO SCH (22:49)
[2018-09-29] MEDS: ALFUZOSIN HCL 10 MG TAB PO SCH (22:49)
[2018-09-30] MEDS: SODIUM CHLORIDE 0.9% 1000ML 1,000 ML IV SCH ×4 (01:50→22:45)
[2018-09-30 03:56] LABS: Hematocrit (blood only) 43.5 % (42-52); Hemoglobin 15.1 g/dL (14.0-18.0); Mean Corpuscular Hgb Conc 34.7 g/dL (32-36); Mean Corpuscular Volume 96.7 fL (80-100); RDW Coefficient of Variation 14.3 % (11.5-14.5); RDW Standard Deviation 50.3 fL (36.4-46.3); White Blood Count 19.14 K/uL (4.8-10.8)
[2018-09-30 04:04] LABS: INR 2.1 (0.9-1.1)
[2018-09-30 04:22] LABS: BUN Creatinine Ratio 27.2 (10-20); Blood Urea Nitrogen 23 mg/dl (7-18); Calcium 7.7 mg/dl (8.5-10.1); Carbon Dioxide 27 mmol/L (21-32); Chloride 96 mmol/L (98-107); Creatinine Clr Calc Pharmacy 97.1 ml/min; Est GFR (African American) 96.7; Est GFR (Non-African American) 83.5; Glucose 216 mg/dl (70-99); Magnesium 1.8 mg/dl (1.8-2.4); Platelet Count 130 K/uL (130-400); Potassium 3.6 mmol/L (3.5-5.1); Sodium 130 mmol/L (136-145); Troponin I < 0.015 ng/ml (0-0.045)
[2018-09-30 04:23] LABS: Basophils # (auto) 0.01 K/uL (0-0.2); Basophils % (auto) 0.1 %; Eosinophils # (auto) 0.01 K/uL (0-0.5); Eosinophils % (auto) 0.1 %; Immature Granulocytes # (auto) 0.05 K/uL (0.00-0.02); Immature Granulocytes % (auto) 0.3 %; Lymphocytes # (auto) 3.33 K/uL (1.2-3.4); Lymphocytes % (auto) 17.4 %; Monocytes # (auto) 1.41 K/uL (0.11-0.59); Monocytes % (auto) 7.4 %; Neutrophils # (auto) 14.33 K/uL (1.4-6.5); Neutrophils % (auto) 74.7 %
[2018-09-30] MEDS: LEVOTHYROXINE SODIUM 88 MCG TABLET PO SCH (05:40)
[2018-09-30 06:40] LABS: Estimated Average Glucose 226 mg/dl
[2018-09-30] MEDS: DICLOFENAC SOD 1% GEL 100 GM TUBE EXT SCH ×4 (07:37→20:24)
[2018-09-30] MEDS: GABAPENTIN 100 MG CAP PO SCH ×2 (07:37→20:24)
[2018-09-30] MEDS: METOPROLOL SUCC 50MG EXT REL TAB PO SCH ×2 (07:39→20:24)
[2018-09-30] MEDS: DOCUSATE SODIUM 100 MG CAP PO SCH (07:40)
[2018-09-30] MEDS: ASPIRIN 81 MG ECTAB PO SCH (07:40)
[2018-09-30] MEDS: POTASSIUM CHLORIDE 20 MEQ TABCR PO SCH (07:41)
[2018-09-30] MEDS: MULTIVITAMIN TAB PO SCH (07:42)
[2018-09-30] MEDS: PANTOprazole 40 MG TAB PO SCH (07:42)
[2018-09-30] MEDS: CHOLECALCIFEROL 1,000 UNITS TAB PO SCH (07:43)
[2018-09-30] MEDS: FUROSEMIDE 80 MG TAB PO SCH (07:44)
[2018-09-30] MEDS: LOSARTAN POTASSIUM 25 MG TAB PO SCH (07:44)
[2018-09-30] MEDS: SPIRONOLACTONE 25 MG TAB PO SCH ×2 (07:45→17:08)
[2018-09-30] MEDS: ALLOPURINOL 300 MG TAB PO SCH (07:46)
[2018-09-30] MEDS: INSULIN ASPART 100 UNITS/ML 3 ML PEN SC SCH ×4 (07:47→20:26)
[2018-09-30] MEDS: INSULIN GLARGINE SOLOSTAR 100 UNITS/ML 3 ML PEN SC SCH ×2 (07:49→20:24)
--- NOTE | 2018-09-30 10:09 | Consultation Report ---
DATE OF CONSULTATION: 09/30/2018 INPATIENT CARDIOLOGY CONSULTATION CONSULTATION REQUESTED BY: Dr. Valdivia REASON FOR CONSULTATION: Atrial fibrillation with rapid ventricular response. HISTORY OF PRESENT ILLNESS: The patient is a very medically complex 78-year-old gentleman who normally follows with Aris Potter of our Cardiology practice, who presented to [facility] Emergency Department on 09/29/2018 with complaints of generalized weakness, difficulty ambulating and confusion. The patient states he has been in his normal state of health lately, but is noticing over the last day or so that he has been having difficulty with his balance. He noted his blood sugars have been in the 200s consistently for some time now and they were again in the 200s the day of presentation. On the , he states he stood up, started to walk across his home and he became significantly dizzy and his legs felt weak. He was brought into the Emergency Department. He states upon arrival to the Emergency Department, he felt significant right lower extremity leg pain. He states he has diabetic nerve pain and he has constant pain of his legs, but noted that this pain was different. He was found to have cellulitis and started on broad spectrum antibiotics and states now that his pain is feeling much better. He denies any cardiac complaints, specifically denying any chest pain, shortness of breath, palpitations or syncope. Upon arrival, his heart rates were initially elevated; however, after receiving IV antibiotics and IV fluids, his rates are now back into the 80s. PAST SURGICAL HISTORY: 1. Cardiac catheterization in 2009 with nonobstructive disease. 2. Multiple cardioversions, most recently in 2013, which was unsuccessful. 3. Tonsil and adenoidectomy. 4. Hernia repair. 5. Appendectomy. 6. Cataracts. 7. Colonoscopy with polypectomy. MEDICAL ILLNESSES: 1. History of nonischemic cardiomyopathy likely tachycardia induced, EF as low as 20%, now normalized. 2. Nonobstructive coronary artery disease. 3. Permanent atrial fibrillation, rate controlled on chronic Coumadin therapy. 4. Diabetes. 5. Hypothyroidism. 6. Morbid obesity. 7. Obstructive sleep apnea, on nocturnal CPAP. 8. Hypertension. 9. Hyperlipidemia. 10. Chronic venous insufficiency. 11. GERD. 12. Chronic back pain. FAMILY HISTORY: Noncontributory. SOCIAL HISTORY: The patient has a remote tobacco use history, quit in 1979. Denies any alcohol or recreational drug use. He is retired from [employer]. He is and remarried. REVIEW OF SYSTEMS: As per HPI, all other review of systems reviewed and negative at this time. ALLERGIES: No known drug allergies. MEDICATIONS AN OUTPATIENT: 1. Metoprolol succinate 150 mg q.a.m. and 100 mg q.p.m. 2. Losartan 12.5 mg daily. 3. Lasix 80 mg q.a.m. and 40 mg q.p.m. 4. Pravastatin 40 mg daily. 5. Digoxin 0.25 mg Thursday, Thursday, Thursday. 6. Metformin b.i.d. 7. Coumadin as directed by the [facility] clinic. 8. Spironolactone 25 mg b.i.d. 9. Aspirin 81 mg daily. 10. Prilosec. 11. Levothyroxine. 12. Allopurinol. PHYSICAL EXAMINATION: VITAL SIGNS: Temperature 36.8, pulse 89, respiratory rate 12, blood pressure 116/69. GENERAL: Awake, alert, oriented x3, in no acute distress, somewhat lethargic. HEENT: Normocephalic, atraumatic. Pupils equal, round react to light and accommodation. Extraocular muscles intact. Anicteric sclerae. Moist mucous membranes. NECK: No JVD, no bruit. CARDIOVASCULAR: Irregularly irregular, unable to appreciate any murmurs, rubs or gallops. PULMONARY: Clear to auscultation bilaterally. No rales, rhonchi or wheezing. ABDOMEN: Bowel sounds x4, soft. No rebound, guarding, tenderness. No organomegaly. EXTREMITIES: Diffuse erythema ____ and tenderness to the right lower extremity, +1 bilateral nonpitting edema. No clubbing or cyanosis. SKIN: Otherwise warm and dry. TEST RESULTS: A 12-lead EKG performed this a.m. independently reviewed at this time shows atrial fibrillation at 89 beats per minute. LABORATORY STUDIES OF SIGNIFICANCE: Sodium 130, potassium 3.6, BUN 23, creatinine 0.9. White count of 27. IMPRESSION: 1. Cellulitis of the right lower extremity. 2. Permanent atrial fibrillation with recent rapid ventricular response secondary to number 1. 3. Volume depletion. 4. Hyponatremia. 5. History of tachycardia-induced cardiomyopathy, resolved. 6. Obstructive sleep apnea, nocturnal CPAP. RECOMMENDATIONS: It is my pleasure to see the patient in consultation today. I believe the patient's rapid ventricular response on his home medications is easily explained by the acute infection in his legs, especially given the fact that his heart rates have now returned to the 80s after receiving initial IV fluids and antibiotics, so no medication changes will be made at this time. The patient should be continued on his outpatient cardiac medications and dosages. The only question I have is why he is on spironolactone 25 mg b.i.d. This does appear to be a chronic medication for him. STEFANYD
--- NOTE | 2018-09-30 11:17 | Infectious Disease Consult ---
Date of Consultation September 30, 2018 Assessment & Plan (1) Cellulitis of right leg: Cellulitis of the right leg in the setting of chronic venous stasis disease and diabetes with associated encephalopathy. Patient appears to have shown initial improvement on current antibiotics, so would continue pending final culture results. Will adjust once available. Hopefully can transition to oral antibiotics if blood cultures remain negative. Will follow. (2) Encephalopathy: History of Present Illness Reason for Consultation: Daptomycin, cellulitis Attending Physician: Jitendra Valdivia MD History of Present Illness 78-year-old male with complicated past medical history including hypertension, diabetes mellitus, hyperlipidemia, hypothyroidism, obstructive sleep apnea, coronary artery disease, with chronic lower extremity lymphedema and chronic venous stasis disease, who was admitted to the hospital with acute onset of encephalopathy associated with pain, redness, swelling, increased warmth of his right lower leg. Was found to have evidence of early sepsis with cellulitis, and has been started empirically on daptomycin and cefepime. He has improved clinically over the last 12 hours with decrease in the redness and swelling and decrease in the excessive warmth. Currently afebrile. Tolerating antibiotics without apparent difficulty. Pain currently 1 out of 10 in intensity right leg. Cultures are pending. Allergies Allergy/AdvReac Type Severity Reaction Status Date / Time No Known Allergies Allergy Verified 09/29/18 15:36 Home Medications Home Medications Medication Instructions Recorded Confirmed Type albuterol sulfate [ProAir HFA] 2 puff INHALATION QID PRN 09/29/18 09/29/18 History alfuzosin 10 mg PO QPM 09/29/18 09/29/18 History allopurinol 300 mg PO QAM 09/29/18 09/29/18 History aspirin 81 mg PO QAM 09/29/18 09/29/18 History cholecalciferol (vitamin D3) 1,000 units PO QAM 09/29/18 09/29/18 History [Vitamin D3] colchicine [Colcrys] 0.6 mg PO BID 09/29/18 09/29/18 History diclofenac sodium 2 g TOPICAL QID 09/29/18 09/29/18 History digoxin 250 mcg PO 5XWK 09/29/18 09/29/18 History docusate sodium 100 mg PO QAM 09/29/18 09/29/18 History fluticasone [Flonase Allergy 2 spray INTRANASAL BID PRN 09/29/18 09/29/18 History Relief] furosemide 40 mg PO QPM 09/29/18 09/29/18 History furosemide 80 mg PO QAM 09/29/18 09/29/18 History gabapentin 100 mg PO BID 09/29/18 09/29/18 History levothyroxine 88 mcg PO QAM 09/29/18 09/29/18 History losartan 12.5 mg PO QAM 09/29/18 09/29/18 History metformin 500 mg PO DAILY 09/29/18 09/29/18 History metolazone 2.5 mg PO 2XWK 09/29/18 09/29/18 History metoprolol succinate 100 mg PO QPM 09/29/18 09/29/18 History metoprolol succinate 150 mg PO QAM 09/29/18 09/29/18 History multivitamin 1 tab PO QAM 09/29/18 09/29/18 History omeprazole 20 mg PO QAM 09/29/18 09/29/18 History potassium chloride [Klor-Con M20] 10 meq PO 2XWK 09/29/18 09/29/18 History potassium chloride [Klor-Con M20] 40 meq PO QAM 09/29/18 09/29/18 History pravastatin 40 mg PO HS 09/29/18 09/29/18 History spironolactone 25 mg PO BID 09/29/18 09/29/18 History tramadol 50 mg PO BID PRN 09/29/18 09/29/18 History warfarin 2.5 mg PO 2XWK 09/29/18 09/29/18 History warfarin 5 mg PO 5XWK 09/29/18 09/29/18 History Patient History Medical History BPH (benign prostatic hyperplasia) (Chronic) Gout (Chronic) HLD (hyperlipidemia) (Chronic) HTN (hypertension) (Chronic) Atrial fibrillation (Chronic) Dyslipidemia (Chronic) Hypothyroidism (Chronic) History of adenomatous polyp of colon (Chronic) Diabetes mellitus, type 2 (Chronic) History of basal cell carcinoma (Chronic) Systolic CHF, chronic (Chronic) Obstructive sleep apnea (Chronic) Coronary artery disease (Chronic) "nonocclusive disease per cardiac cath 2009" GERD (gastroesophageal reflux disease) (Chronic) Pulmonary nodule (Chronic) "6 mm RLL; incidental finding on CT abdomen 03/07/16" Diabetic peripheral neuropathy associated with type 2 diabetes mellitus Cellulitis Hyponatremia Surgical History Status post appendectomy (Chronic) Status post inguinal hernia repair (Chronic) Family History Other HTN (hypertension) Stroke Social History Current Living Situation: Family Other Information That Helps Us Care for You: No Feels Safe at Home: Yes Safety Concerns: Feels Safe At This Time Smoking Status: Never smoker Hx Alcohol Use: No Hx Substance Use: No Beliefs That Will Affect Care: None Preferred Language: Maltese Communication Ability: Effective City Route Driver Required: No Review of Systems All systems were reviewed and are negative except as per HPI Physical Exam 2 Vital Signs (Past 24 Hours): Last Vital Signs Temp 36.8 C 09/30/18 07:13 Pulse 89 09/30/18 07:13 Resp 18 09/30/18 07:13 BP 116/69 09/30/18 07:13 Pulse Ox 92 09/30/18 07:13 Constitutional: WD/WN, vitals as above comfortable; no acute distress Eyes: PERRL, conjunctivae normal, anicteric sclerae ENMT: external ear and nose normal, oropharynx normal Neck: trachea midline, no thyromegaly neck nontender Respiratory: normal respiratory effort, lungs clear to auscultation normal percussion; does not use accessory muscles Cardiovascular: Rate/Rhythm: + abnormal rate and + abnormal rhythm Heart Sounds: normal S1 and normal S2; no gallop, no murmur and no cardiac rub Vessels: normal peripheral pulses; no JVD Irregularly irregular Gastrointestinal (Abdomen): normal bowel sounds, soft, nontender, no hepatosplenomegaly Musculoskeletal: no cyanosis or clubbing, extremities motor strength 5/5 Spine: thoracic spine normal to inspection and lumbar spine normal to inspection ; no cervical spinal tenderness Skin: no rashes Bilateral chronic venous stasis dermatitis, increase in erythema right leg below the knee Neurologic: patellar DTR's 2+ bilat, sensation intact no focal motor deficits Psychiatric: A+Ox3, euthymic affect Orientation: cooperative Lymphatic: no cervical or axillary lymphadenopathy no inguinal lymphadenopathy Results & Data Laboratory Results Short CBC 09/29/18 09/30/18 Range/Units 15:44 03:42 WBC 27.21 H 19.14 H (4.8-10.8) K/uL Hgb 17.2 15.1 (14.0-18.0) g/dL Hct 48.6 43.5 (42-52) % Plt Count 131 130 (130-400) K/uL BMP 09/29/18 09/30/18 15:44 03:42 Sodium 128 L 130 L Potassium 4.4 3.6 D Chloride 95 L 96 L Carbon Dioxide 23 27 BUN 29 H 23 H Creatinine 1.20 0.85 D Glucose 310 H 216 H Calcium 8.1 L 7.7 L Cardiac Enzymes 09/29/18 09/29/18 09/30/18 Range/Units 15:44 21:51 03:42 Total Creatine Kinase 50 (39-308) U/L Troponin I < 0.015 < 0.015 < 0.015 (0-0.045) ng/ml Liver Function 09/29/18 Range/Units 15:44 Total Bilirubin 1.1 H (0.2-1) mg/dl AST 43 H (15-37) U/L ALT 53 (12-78) U/L Alkaline Phosphatase 97 (45-117) U/L Albumin 3.5 (3.4-5.0) gm/dl Urine 09/29/18 Range/Units 18:48 Urine Color Yellow Urine Appearance Clear (Clear) Urine pH 5.0 (4.5-7.5) Ur Specific [place] 1.019 (1.000-1.030) Urine Protein Negative (Negative) Urine Glucose (UA) 1+ H (Negative) Diagnostic Findings RIGHT LOWER EXTREMITY VENOUS DOPPLER CLINICAL HISTORY: edema/erythema r/o DVT COMPARISON STUDY: Bilateral lower extremity venous Doppler ultrasound April 26, 2010. TECHNIQUE: Sonography of the deep venous system of the right lower extremity was performed. Compression and augmentation were evaluated. FINDINGS: The right common femoral, superficial femoral and popliteal veins were compressible. Augmentation was normal. Flow was shown within the deep calf vessels although the calf vessels were suboptimally assessed on this exam. IMPRESSION: No evidence of deep venous thrombus within the right lower extremity although calf vessels suboptimally assessed on this exam.
[2018-09-30] MEDS: CEFEPIME 2,000 MG in SYRINGE 7.5 ML IV SCH ×2 (13:26→22:45)
[2018-09-30] MEDS ORDERED: WARFARIN SOD 2.5 MG TAB PO SCH (16:00)
[2018-09-30] MEDS: DIGOXIN 0.25 MG TAB PO SCH (17:05)
[2018-09-30] MEDS: DAPTOmycin 400 MG in SYRINGE 0 ML IV SCH (17:16)
[2018-09-30] MEDS: ALFUZOSIN HCL 10 MG TAB PO SCH (20:24)
--- NOTE | 2018-09-30 20:42 | Hospitalist Progress Note ---
Date of Service September 30, 2018 Assessment & Plan (1) Sepsis: Met criteria for sepsis at time of admission per current CMS criteria- tachcardia, tachypnea, leukocytosis. Serum lactate was 4.99. Systolic BP's > 90. Source = cellulitis RLE. Blood cultures obtained. Received broad spectrum antibiotic coverage with ceftriaxone + daptomycin. Did not receive aggressive fluid resuscitation because he was hemodynamically stable and has history of CHF. Ongoing management as discussed below. (2) Cellulitis of right leg: ID consulted. Receiving IV daptomycin and cefepime. (3) Altered mental status: Confused. CT head negative. Metabolic encephalopathy secondary to sepsis. (4) Coronary artery disease: No anginal symptoms. Continue aspirin, metoprolol, losartan. (5) Systolic CHF, chronic: Compensated. Continue metoprolol succinate, digoxin, losartan, diuretics. (6) Atrial fibrillation: Chronic AF. Rate fast at time of admission, improved. Continue metoprolol, digoxin, and warfarin. (7) HTN (hypertension): Continue metoprolol and losartan. (8) Obstructive sleep apnea: Continue CPAP. (9) Diabetes mellitus, type 2: Not well-controlled. Random blood sugar 310 at time of admission. Hgb A1C = 9.5. Hold metformin during hospital stay. Lantus / NovoLog per protocol. (10) Gout: Continue colchicine and allopurinol. (11) BPH (benign prostatic hyperplasia): Continue alfuzosin. (12) DVT prophylaxis: Continue warfarin. (13) Discharge planning issues: Anticipated discharge to home. Family Medicine follow-up with Dr. Scherer. Subjective Recheck for atrial fib, cellulitis, and other problems. Pt was seen in his room around 1640. visiting. Feels better. Temp down. No chest pain. No cough or SOB. No nausea, vomiting, diarrhea. No urinary symptoms. Right leg feels better. Physical Exam 2 Vital Signs (Past 24 Hours): Last Vital Signs Temp 36.5 C 09/30/18 19:09 Pulse 89 09/30/18 19:09 Resp 18 09/30/18 19:09 BP 106/63 09/30/18 19:09 Pulse Ox 94 09/30/18 19:09 Constitutional: no acute distress Respiratory: normal respiratory effort, lungs clear to auscultation Cardiovascular: Rate/Rhythm: + abnormal rhythm (irregularly irregular) Heart Sounds: no gallop Extremities: + edema (1+ pretibial) Gastrointestinal (Abdomen): Inspection/Auscultation: normal bowel sounds Percussion/Palpation: abdomen soft; abdomen nontender Skin: + erythema (right leg below knee) Psychiatric: Orientation: alert Results & Data Laboratory Results Laboratory Results - last 24 hr 09/30/18 09/30/18 09/30/18 03:42 07:07 11:05 POC Glucose 200 H 224 H Estimat Average Glucose 226 Hemoglobin A1c 9.5 H 09/30/18 09/30/18 16:31 20:10 POC Glucose 211 H 212 H Estimat Average Glucose Hemoglobin A1c _ (1) Altered mental status Altered mental status type: unspecified Coma depth: Coma timing: Qualified Code(s): R41.82 - Altered mental status, unspecified
[2018-10-01] MEDS: LEVOTHYROXINE SODIUM 88 MCG TABLET PO SCH (06:08)
[2018-10-01] MEDS: SODIUM CHLORIDE 0.9% 1000ML 1,000 ML IV SCH ×3 (06:09→23:36)
[2018-10-01 07:25] LABS: Hematocrit (blood only) 42.6 % (42-52); Hemoglobin 14.6 g/dL (14.0-18.0); Mean Corpuscular Hgb Conc 34.3 g/dL (32-36); Mean Corpuscular Volume 97.9 fL (80-100); Mean Platelet Volume 11.9 fL (7.4-10.4); Platelet Count 121 K/uL (130-400); RDW Coefficient of Variation 14.3 % (11.5-14.5); RDW Standard Deviation 51.4 fL (36.4-46.3); Red Blood Count 4.35 M/uL (4.7-6.1); White Blood Count 9.69 K/uL (4.8-10.8)
[2018-10-01] MEDS: ALLOPURINOL 300 MG TAB PO SCH (07:25)
[2018-10-01] MEDS: DOCUSATE SODIUM 100 MG CAP PO SCH (07:26)
[2018-10-01] MEDS: CHOLECALCIFEROL 1,000 UNITS TAB PO SCH (07:26)
[2018-10-01] MEDS: FUROSEMIDE 80 MG TAB PO SCH (07:27)
[2018-10-01] MEDS: METOPROLOL SUCC 50MG EXT REL TAB PO SCH ×2 (07:27→22:06)
[2018-10-01] MEDS: MULTIVITAMIN TAB PO SCH (07:28)
[2018-10-01] MEDS: PANTOprazole 40 MG TAB PO SCH (07:28)
[2018-10-01] MEDS: SPIRONOLACTONE 25 MG TAB PO SCH ×2 (07:28→16:37)
[2018-10-01] MEDS: ASPIRIN 81 MG ECTAB PO SCH (07:29)
[2018-10-01] MEDS: LOSARTAN POTASSIUM 25 MG TAB PO SCH (07:30)
[2018-10-01] MEDS: GABAPENTIN 100 MG CAP PO SCH ×2 (07:30→22:07)
[2018-10-01 07:32] LABS: INR 1.3 (0.9-1.1); Prothrombin Time 13.4 Seconds (9.0-12.0)
[2018-10-01] MEDS: POTASSIUM CHLORIDE 20 MEQ TABCR PO SCH (07:32)
[2018-10-01] MEDS: DICLOFENAC SOD 1% GEL 100 GM TUBE EXT SCH ×4 (07:33→22:14)
[2018-10-01] MEDS: INSULIN GLARGINE SOLOSTAR 100 UNITS/ML 3 ML PEN SC SCH ×2 (07:41→22:07)
[2018-10-01] MEDS: INSULIN ASPART 100 UNITS/ML 3 ML PEN SC SCH ×4 (07:41→22:14)
[2018-10-01 07:59] LABS: BUN Creatinine Ratio 22.4 (10-20); Calcium 8.2 mg/dl (8.5-10.1); Creatinine Clr Calc Pharmacy 100.4 ml/min; Est GFR (African American) 98.2; Est GFR (Non-African American) 84.7; Potassium 3.4 mmol/L (3.5-5.1)
[2018-10-01] MEDS: CEFEPIME 2,000 MG in SYRINGE 7.5 ML IV SCH ×2 (10:59→22:42)
--- NOTE | 2018-10-01 15:28 | Hospitalist Progress Note ---
Date of Service October 01, 2018 Assessment & Plan (1) Sepsis: Met criteria for sepsis at time of admission per current CMS criteria- tachcardia, tachypnea, leukocytosis. Serum lactate was 4.99. Systolic BP's > 90. Source = cellulitis RLE. Blood cultures obtained. Received broad spectrum antibiotic coverage with ceftriaxone + daptomycin. Did not receive aggressive fluid resuscitation because he was hemodynamically stable and has history of CHF. Ongoing management as discussed below. (2) Cellulitis of right leg: ID consulted. Receiving IV daptomycin and cefepime. Blood cultures negative. Clinically improved. WBC down. (3) Altered mental status: Confused. CT head negative. Metabolic encephalopathy secondary to sepsis. (4) Coronary artery disease: No anginal symptoms. Continue aspirin, metoprolol, losartan. (5) Systolic CHF, chronic: Compensated. Continue metoprolol succinate, digoxin, losartan, diuretics. (6) Atrial fibrillation: Chronic AF. Rate fast at time of admission, improved. Continue metoprolol, digoxin, and warfarin. (7) HTN (hypertension): Continue metoprolol and losartan. (8) Obstructive sleep apnea: Continue CPAP. (9) Diabetes mellitus, type 2: Not well-controlled. Random blood sugar 310 at time of admission. Hgb A1C = 9.5. Hold metformin during hospital stay. FBS today = 160. Lantus / NovoLog per protocol. (10) Gout: Continue colchicine and allopurinol. (11) BPH (benign prostatic hyperplasia): Continue alfuzosin. (12) DVT prophylaxis: Continue warfarin. (13) Discharge planning issues: Anticipated discharge to home. Family Medicine follow-up with Dr. Scherer. Subjective Recheck for atrial fib, cellulitis, and other problems. Pt was seen in his room around 1520. Feels better. No fever. No chest pain. No cough or SOB. No nausea, vomiting, diarrhea. No urinary symptoms. Right leg feels better. Physical Exam 2 Vital Signs (Past 24 Hours): Last Vital Signs Temp 36.5 C 10/01/18 10:17 Pulse 81 10/01/18 10:17 Resp 17 10/01/18 10:17 BP 108/72 10/01/18 10:17 Pulse Ox 96 10/01/18 10:17 Constitutional: no acute distress Respiratory: normal respiratory effort, lungs clear to auscultation Cardiovascular: Rate/Rhythm: + abnormal rhythm (irregularly irregular) Heart Sounds: no gallop Extremities: + edema (1+ pretibial) Gastrointestinal (Abdomen): Inspection/Auscultation: normal bowel sounds Percussion/Palpation: abdomen soft; abdomen nontender Skin: + erythema (right leg below knee) Psychiatric: Orientation: alert Results & Data Laboratory Results Laboratory Results - last 24 hr 09/30/18 10/01/18 10/01/18 20:10 07:09 07:09 WBC 9.69 RBC 4.35 L Hgb 14.6 Hct 42.6 MCV 97.9 MCH 33.6 MCHC 34.3 RDW Std Deviation 51.4 H RDW Coeff of Shilpi 14.3 Plt Count 121 L MPV 11.9 H PT 13.4 H INR 1.3 H Sodium Potassium Chloride Carbon Dioxide Anion Gap BUN Creatinine Est Cr Clr Drug Dosing Est GFR ( Amer) Est GFR (Non-Af Amer) BUN/Creatinine Ratio Glucose POC Glucose 212 H Calcium 10/01/18 10/01/18 10/01/18 07:09 07:36 10:59 WBC RBC Hgb Hct MCV MCH MCHC RDW Std Deviation RDW Coeff of Shilpi Plt Count MPV PT INR Sodium 135 L Potassium 3.4 L Chloride 101 Carbon Dioxide 28 Anion Gap 6.0 BUN 18 Creatinine 0.82 Est Cr Clr Drug Dosing 100.4 Est GFR ( Amer) 98.2 Est GFR (Non-Af Amer) 84.7 BUN/Creatinine Ratio 22.4 H Glucose 176 H POC Glucose 160 H 184 H Calcium 8.2 L 10/01/18 16:21 WBC RBC Hgb Hct MCV MCH MCHC RDW Std Deviation RDW Coeff of Shilpi Plt Count MPV PT INR Sodium Potassium Chloride Carbon Dioxide Anion Gap BUN Creatinine Est Cr Clr Drug Dosing Est GFR ( Amer) Est GFR (Non-Af Amer) BUN/Creatinine Ratio Glucose POC Glucose 165 H Calcium _ (1) Altered mental status Altered mental status type: unspecified Coma depth: Coma timing: Qualified Code(s): R41.82 - Altered mental status, unspecified
--- NOTE | 2018-10-01 15:28 | Cardiology Progress Note ---
Date of Service October 01, 2018 Assessment & Plan (1) Atrial fibrillation with RVR: chronic asymptomatic initially with RVR while meeting sepsis criteria once patient was stabilized his rates became controlled on his home medication regimen no changes ok to d/c tele from cardiac standpoint will sign off, please call with questions or concerns Subjective Pt seen and examined with family members at bedside. States that he feels well, a little concerned about the discoloration of his legs. Denies cp, sob, palpitations, lightheadedness or dizziness. tele reviewed: afib rate controlled Review of Systems All systems reviewed & are unremarkable except as noted in HPI & below Physical Exam 2 Vital Signs (Past 24 Hours): Last Vital Signs Temp 36.5 C 10/01/18 10:17 Pulse 81 10/01/18 10:17 Resp 17 10/01/18 10:17 BP 108/72 10/01/18 10:17 Pulse Ox 96 10/01/18 10:17 Physical Exam: General: Awake, alert and oriented x 3. No acute distress. HEENT: Normocephalic, atraumatic. Pupils equal, round and reactive to light and accommodation. Extraocular muscles are intact. Anicteric sclera. Moist mucous membranes. Neck: No JVD. No bruit. Cardiovascular: irregularly irregular, unable to appreciate murmur, rub or gallop. Pulmonary: Clear to auscultation bilaterally. No rales, rhonchi, or wheezing. Abdomen: Bowel sounds x 4, soft. No rebound, guarding or tenderness. No organomegaly. Extremities: No clubbing, cyanosis or edema. +2 pedal pulses bilaterally. Skin: Warm and dry. Significant chronic venous changes of B/L LE with significant, maroon discolorations
[2018-10-01] MEDS ORDERED: WARFARIN SOD 5 MG TAB PO SCH (16:00)
[2018-10-01] MEDS: WARFARIN SOD 7.5 MG TAB PO SCH (16:34)
[2018-10-01] MEDS: DIGOXIN 0.25 MG TAB PO SCH (16:35)
[2018-10-01] MEDS: DAPTOmycin 400 MG in SYRINGE 0 ML IV SCH (17:22)
--- NOTE | 2018-10-01 18:00 | Infectious Disease Progress Nt ---
Date of Service October 01, 2018 Assessment & Plan (1) Cellulitis of right leg: Cellulitis of the right leg in the setting of chronic venous stasis disease and diabetes with associated encephalopathy. Patient appears to have shown initial improvement on current antibiotics, so would continue pending final culture results. Will adjust once available. Hopefully can transition to oral antibiotics if blood cultures remain negative. Will follow. (2) Encephalopathy: Subjective Patient seen in follow-up for right lower extremity cellulitis. Patient states erythema and swelling improving, remains afebrile, offers no new complaints. Review of Systems All systems reviewed & are unremarkable except as noted in HPI & below Physical Exam 2 Vital Signs (Past 24 Hours): Last Vital Signs Temp 37.0 C 10/01/18 15:36 Pulse 82 10/01/18 16:35 Resp 18 10/01/18 15:36 BP 113/71 10/01/18 15:36 Pulse Ox 99 10/01/18 15:36 Constitutional: WD/WN, vitals as above comfortable; no acute distress Eyes: PERRL, conjunctivae normal, anicteric sclerae ENMT: external ear and nose normal, oropharynx normal Neck: trachea midline, no thyromegaly neck nontender Respiratory: normal respiratory effort, lungs clear to auscultation normal percussion; does not use accessory muscles Cardiovascular: Rate/Rhythm: + abnormal rate and + abnormal rhythm Heart Sounds: normal S1 and normal S2; no gallop, no murmur and no cardiac rub Vessels: normal peripheral pulses; no JVD Gastrointestinal (Abdomen): normal bowel sounds, soft, nontender, no hepatosplenomegaly Musculoskeletal: no cyanosis or clubbing, extremities motor strength 5/5 Spine: thoracic spine normal to inspection and lumbar spine normal to inspection ; no cervical spinal tenderness Slightly improved lower extremity erythema Skin: no rashes Neurologic: patellar DTR's 2+ bilat, sensation intact no focal motor deficits Psychiatric: A+Ox3, euthymic affect Orientation: cooperative Lymphatic: no cervical or axillary lymphadenopathy no inguinal lymphadenopathy Results & Data Laboratory Results Short CBC 10/01/18 Range/Units 07:09 WBC 9.69 (4.8-10.8) K/uL Hgb 14.6 (14.0-18.0) g/dL Hct 42.6 (42-52) % Plt Count 121 L (130-400) K/uL BMP 10/01/18 07:09 Sodium 135 L Potassium 3.4 L Chloride 101 Carbon Dioxide 28 BUN 18 Creatinine 0.82 Glucose 176 H Calcium 8.2 L Diagnostic Findings Microbiology 09/29/18 21:37 Blood Blood Culture - Preliminary No growth to date. 09/29/18 19:18 Blood Blood Culture - Preliminary No growth to date. 09/29/18 17:20 Blood Blood Culture - Preliminary No growth to date.
[2018-10-01] MEDS: ALFUZOSIN HCL 10 MG TAB PO SCH (22:06)
[2018-10-01] MEDS: ENOXAPARIN INJ 40 MG/0.4 ML SYR SQ SCH (22:06)
[2018-10-02] MEDS: LEVOTHYROXINE SODIUM 88 MCG TABLET PO SCH (06:38)
[2018-10-02] MEDS: SODIUM CHLORIDE 0.9% 1000ML 1,000 ML IV SCH (06:38)
[2018-10-02 07:08] LABS: INR 1.3 (0.9-1.1); Prothrombin Time 13.4 Seconds (9.0-12.0)
[2018-10-02 07:23] LABS: BUN Creatinine Ratio 22.1 (10-20); Calcium 8.4 mg/dl (8.5-10.1); Est GFR (Non-African American) 91.5; Potassium 3.7 mmol/L (3.5-5.1)
[2018-10-02] MEDS: INSULIN ASPART 100 UNITS/ML 3 ML PEN SC SCH ×4 (09:05→20:48)
[2018-10-02] MEDS: INSULIN GLARGINE SOLOSTAR 100 UNITS/ML 3 ML PEN SC SCH ×2 (09:06→19:23)
[2018-10-02] MEDS: SPIRONOLACTONE 25 MG TAB PO SCH ×2 (09:09→17:10)
[2018-10-02] MEDS: DOCUSATE SODIUM 100 MG CAP PO SCH (09:09)
[2018-10-02] MEDS: LOSARTAN POTASSIUM 25 MG TAB PO SCH (09:10)
[2018-10-02] MEDS: ASPIRIN 81 MG ECTAB PO SCH (09:10)
[2018-10-02] MEDS: FUROSEMIDE 80 MG TAB PO SCH (09:11)
[2018-10-02] MEDS: POTASSIUM CHLORIDE 20 MEQ TABCR PO SCH (09:11)
[2018-10-02] MEDS: MULTIVITAMIN TAB PO SCH (09:11)
[2018-10-02] MEDS: GABAPENTIN 100 MG CAP PO SCH ×2 (09:11→20:50)
[2018-10-02] MEDS: METOPROLOL SUCC 50MG EXT REL TAB PO SCH ×2 (09:12→20:51)
[2018-10-02] MEDS: PANTOprazole 40 MG TAB PO SCH (09:12)
[2018-10-02] MEDS: ALLOPURINOL 300 MG TAB PO SCH (09:13)
[2018-10-02] MEDS: CHOLECALCIFEROL 1,000 UNITS TAB PO SCH (09:13)
[2018-10-02] MEDS: DICLOFENAC SOD 1% GEL 100 GM TUBE EXT SCH ×4 (09:13→20:53)
[2018-10-02] MEDS: CEFEPIME 2,000 MG in SYRINGE 7.5 ML IV SCH ×3 (10:44→22:21)
--- NOTE | 2018-10-02 15:17 | Hospitalist Progress Note ---
Date of Service October 02, 2018 Assessment & Plan (1) Sepsis: Met criteria for sepsis at time of admission per current CMS criteria- tachcardia, tachypnea, leukocytosis. Serum lactate was 4.99. Systolic BP's > 90. Source = cellulitis RLE. Blood cultures obtained. Received broad spectrum antibiotic coverage with ceftriaxone + daptomycin. Did not receive aggressive fluid resuscitation because he was hemodynamically stable and has history of CHF. Ongoing management as discussed below. (2) Cellulitis of right leg: ID consulted. Receiving IV daptomycin and cefepime. Blood cultures negative so far. Clinically improved. WBC down. Continue IV antibiotics with eventual transition to oral meds. (3) Altered mental status: Confused. CT head negative. Metabolic encephalopathy secondary to sepsis. Improved. (4) Coronary artery disease: No anginal symptoms. Continue aspirin, metoprolol, losartan. (5) Systolic CHF, chronic: Compensated. Continue metoprolol succinate, digoxin, losartan, diuretics. (6) Atrial fibrillation: Chronic AF. Rate fast at time of admission, improved. Continue metoprolol, digoxin, and warfarin. INR low. Titrate warfarin. (7) HTN (hypertension): Continue metoprolol and losartan. (8) Obstructive sleep apnea: Continue CPAP. (9) Diabetes mellitus, type 2: Not well-controlled. Random blood sugar 310 at time of admission. Hgb A1C = 9.5. Hold metformin during hospital stay. FBS today = 150. Lantus / NovoLog per protocol. (10) Gout: Continue colchicine and allopurinol. (11) BPH (benign prostatic hyperplasia): Continue alfuzosin. (12) DVT prophylaxis: Continue warfarin. SQ enoxaparin until INR therapeutic. (13) Discharge planning issues: Anticipated discharge to home. requesting consideration of rehab. PT / OT evals requested. Family Medicine follow-up with Dr. Scherer. Subjective Recheck for atrial fib, cellulitis, and other problems. Pt was seen in his room around 1340. No fever. No chest pain. No cough or SOB. No nausea, vomiting, diarrhea. No urinary symptoms. Right leg less uncomfortable. concerned about functional status and requests PT / OT evals and consideration of rehab. Physical Exam 2 Vital Signs (Past 24 Hours): Last Vital Signs Temp 36.5 C 10/02/18 07:51 Pulse 72 10/02/18 07:51 Resp 20 10/02/18 07:51 BP 115/82 10/02/18 07:51 Pulse Ox 97 10/02/18 07:51 Constitutional: no acute distress Respiratory: normal respiratory effort, lungs clear to auscultation Cardiovascular: Rate/Rhythm: + abnormal rhythm (irregularly irregular) Heart Sounds: no gallop Extremities: + edema (1+ pretibial) Gastrointestinal (Abdomen): Inspection/Auscultation: normal bowel sounds Percussion/Palpation: abdomen soft; abdomen nontender Skin: + erythema (right leg below knee) Psychiatric: Orientation: alert Results & Data Laboratory Results Laboratory Results - last 24 hr 10/01/18 10/02/18 10/02/18 20:25 06:24 06:24 PT 13.4 H INR 1.3 H Sodium 138 Potassium 3.7 Chloride 104 Carbon Dioxide 27 Anion Gap 7.0 BUN 15 Creatinine 0.68 Est Cr Clr Drug Dosing 121.0 Est GFR ( Amer) 106.0 Est GFR (Non-Af Amer) 91.5 BUN/Creatinine Ratio 22.1 H Glucose 154 H POC Glucose 194 H Calcium 8.4 L 10/02/18 10/02/18 10/02/18 07:33 11:40 16:25 PT INR Sodium Potassium Chloride Carbon Dioxide Anion Gap BUN Creatinine Est Cr Clr Drug Dosing Est GFR ( Amer) Est GFR (Non-Af Amer) BUN/Creatinine Ratio Glucose POC Glucose 150 H 165 H 200 H Calcium _ (1) Altered mental status Altered mental status type: unspecified Coma depth: Coma timing: Qualified Code(s): R41.82 - Altered mental status, unspecified
[2018-10-02] MEDS: WARFARIN SOD 7.5 MG TAB PO SCH (17:09)
[2018-10-02] MEDS: DAPTOmycin 400 MG in SYRINGE 0 ML IV SCH (18:15)
[2018-10-02] MEDS: ENOXAPARIN INJ 40 MG/0.4 ML SYR SQ SCH (20:47)
[2018-10-02] MEDS: ALFUZOSIN HCL 10 MG TAB PO SCH (20:52)
[2018-10-03] MEDS: LEVOTHYROXINE SODIUM 88 MCG TABLET PO SCH (06:12)
[2018-10-03 06:33] LABS: Hematocrit (blood only) 44.6 % (42-52); Hemoglobin 15.1 g/dL (14.0-18.0); Mean Corpuscular Hgb Conc 33.9 g/dL (32-36); Mean Corpuscular Volume 97.8 fL (80-100); Mean Platelet Volume 11.7 fL (7.4-10.4); Platelet Count 155 K/uL (130-400); RDW Standard Deviation 50.2 fL (36.4-46.3); Red Blood Count 4.56 M/uL (4.7-6.1); White Blood Count 7.21 K/uL (4.8-10.8)
[2018-10-03 06:47] LABS: INR 1.7 (0.9-1.1); Prothrombin Time 16.5 Seconds (9.0-12.0)
[2018-10-03 07:06] LABS: BUN Creatinine Ratio 20.7 (10-20); Calcium 8.6 mg/dl (8.5-10.1); Creatinine Clr Calc Pharmacy 124.7 ml/min; Est GFR (African American) 107.3; Est GFR (Non-African American) 92.6; Potassium 3.7 mmol/L (3.5-5.1)
[2018-10-03] MEDS: SPIRONOLACTONE 25 MG TAB PO SCH ×2 (08:47→16:37)
[2018-10-03] MEDS: PANTOprazole 40 MG TAB PO SCH (08:47)
[2018-10-03] MEDS: MULTIVITAMIN TAB PO SCH (08:47)
[2018-10-03] MEDS: FUROSEMIDE 80 MG TAB PO SCH (08:48)
[2018-10-03] MEDS: POTASSIUM CHLORIDE 20 MEQ TABCR PO SCH (08:48)
[2018-10-03] MEDS: LOSARTAN POTASSIUM 25 MG TAB PO SCH (08:48)
[2018-10-03] MEDS: ASPIRIN 81 MG ECTAB PO SCH (08:48)
[2018-10-03] MEDS: GABAPENTIN 100 MG CAP PO SCH ×2 (08:48→21:20)
[2018-10-03] MEDS: CHOLECALCIFEROL 1,000 UNITS TAB PO SCH (08:49)
[2018-10-03] MEDS: ALLOPURINOL 300 MG TAB PO SCH (08:49)
[2018-10-03] MEDS: METOPROLOL SUCC 50MG EXT REL TAB PO SCH ×2 (08:50→21:19)
[2018-10-03] MEDS: DICLOFENAC SOD 1% GEL 100 GM TUBE EXT SCH ×4 (08:50→21:20)
[2018-10-03] MEDS: INSULIN ASPART 100 UNITS/ML 3 ML PEN SC SCH ×4 (08:51→21:15)
[2018-10-03] MEDS: INSULIN GLARGINE SOLOSTAR 100 UNITS/ML 3 ML PEN SC SCH ×2 (08:51→21:17)
[2018-10-03] MEDS: DOCUSATE SODIUM 100 MG CAP PO SCH (11:00)
[2018-10-03] MEDS: CEFEPIME 2,000 MG in SYRINGE 7.5 ML IV SCH ×2 (11:16→21:20)
--- NOTE | 2018-10-03 14:30 | Hospitalist Progress Note ---
Date of Service October 03, 2018 Assessment & Plan (1) Sepsis: Met criteria for sepsis at time of admission per current [facility] criteria- tachcardia, tachypnea, leukocytosis. Serum lactate was 4.99. Systolic BP's > 90. Source = cellulitis RLE. Blood cultures obtained. Received broad spectrum antibiotic coverage with ceftriaxone + daptomycin. Did not receive aggressive fluid resuscitation because he was hemodynamically stable and has history of CHF. Ongoing management as discussed below. (2) Cellulitis of right leg: ID consulted. Receiving IV daptomycin and cefepime. Blood cultures negative so far. Clinically improved. WBC down. Continue IV antibiotics with eventual transition to oral meds. (3) Altered mental status: Confused. CT head negative. Metabolic encephalopathy secondary to sepsis. Improved. (4) Coronary artery disease: No anginal symptoms. Continue aspirin, metoprolol, losartan. (5) Systolic CHF, chronic: Compensated. Continue metoprolol succinate, digoxin, losartan, diuretics. (6) Atrial fibrillation: Chronic AF. Rate fast at time of admission, improved. Continue metoprolol, digoxin, and warfarin. INR low. Titrate warfarin. (7) HTN (hypertension): Continue metoprolol and losartan. (8) Obstructive sleep apnea: Continue CPAP. (9) Diabetes mellitus, type 2: Not well-controlled. Random blood sugar 310 at time of admission. Hgb A1C = 9.5. Hold metformin during hospital stay. FBS today = 135. Lantus / NovoLog per protocol. (10) Gout: Continue colchicine and allopurinol. (11) BPH (benign prostatic hyperplasia): Continue alfuzosin. (12) DVT prophylaxis: Continue warfarin. SQ enoxaparin until INR therapeutic. (13) Discharge planning issues: requesting concerned about functional status and fall risk; she requests referral to [facility]. Case Management consulted. Family Medicine follow-up with Dr. Scherer. Subjective Recheck for atrial fib, cellulitis, and other problems. Pt was seen in his room around 1400. Improving. No fever. No chest pain. No cough or SOB. No nausea, vomiting, diarrhea. No urinary symptoms. Right leg better. concerned about functional status and requests rehab. Physical Exam 2 Vital Signs (Past 24 Hours): Last Vital Signs Temp 36.7 C 10/03/18 11:18 Pulse 91 H 10/03/18 11:18 Resp 20 02/17/19 11:18 BP 145/84 H 10/03/18 11:18 Pulse Ox 95 10/03/18 11:18 Constitutional: no acute distress Respiratory: normal respiratory effort, lungs clear to auscultation Cardiovascular: Rate/Rhythm: + abnormal rhythm (irregularly irregular) Heart Sounds: no gallop Extremities: + edema (1+ pretibial) Gastrointestinal (Abdomen): Inspection/Auscultation: normal bowel sounds Percussion/Palpation: abdomen soft; abdomen nontender Skin: + erythema (right leg below knee) Psychiatric: Orientation: alert _ (1) Altered mental status Altered mental status type: unspecified Coma depth: Coma timing: Qualified Code(s): R41.82 - Altered mental status, unspecified
[2018-10-03] MEDS: WARFARIN SOD 7.5 MG TAB PO SCH (16:36)
[2018-10-03] MEDS: DAPTOmycin 400 MG in SYRINGE 0 ML IV SCH (18:12)
[2018-10-03] MEDS: ENOXAPARIN INJ 40 MG/0.4 ML SYR SQ SCH (21:18)
[2018-10-03] MEDS: ALFUZOSIN HCL 10 MG TAB PO SCH (21:20)
[2018-10-04] MEDS: LEVOTHYROXINE SODIUM 88 MCG TABLET PO SCH (06:35)
[2018-10-04 07:27] LABS: INR 2.1 (0.9-1.1); Prothrombin Time 20.1 Seconds (9.0-12.0)
[2018-10-04] MEDS: METOPROLOL SUCC 50MG EXT REL TAB PO SCH (08:49)
[2018-10-04] MEDS: LOSARTAN POTASSIUM 25 MG TAB PO SCH (08:51)
[2018-10-04] MEDS: ASPIRIN 81 MG ECTAB PO SCH (08:51)
[2018-10-04] MEDS: SPIRONOLACTONE 25 MG TAB PO SCH (08:51)
[2018-10-04] MEDS: POTASSIUM CHLORIDE 20 MEQ TABCR PO SCH (08:51)
[2018-10-04] MEDS: FUROSEMIDE 80 MG TAB PO SCH (08:52)
[2018-10-04] MEDS: MULTIVITAMIN TAB PO SCH (08:52)
[2018-10-04] MEDS: ALLOPURINOL 300 MG TAB PO SCH (08:52)
[2018-10-04] MEDS: CHOLECALCIFEROL 1,000 UNITS TAB PO SCH (08:52)
[2018-10-04] MEDS: GABAPENTIN 100 MG CAP PO SCH (08:52)
[2018-10-04] MEDS: DICLOFENAC SOD 1% GEL 100 GM TUBE EXT SCH ×2 (08:52→12:15)
[2018-10-04] MEDS: PANTOprazole 40 MG TAB PO SCH (08:52)
[2018-10-04] MEDS: INSULIN ASPART 100 UNITS/ML 3 ML PEN SC SCH ×2 (08:55→12:13)
[2018-10-04] MEDS: INSULIN GLARGINE SOLOSTAR 100 UNITS/ML 3 ML PEN SC SCH (08:56)
[2018-10-04] MEDS: CEFEPIME 2,000 MG in SYRINGE 7.5 ML IV SCH (10:32)
[2018-10-04] MEDS: DOCUSATE SODIUM 100 MG CAP PO SCH (12:13)
--- NOTE | 2018-10-04 13:19 | Hospitalist Progress Note ---
Date of Service October 04, 2018 Assessment & Plan (1) Sepsis: Met criteria for sepsis at time of admission per current CMS criteria- tachcardia, tachypnea, leukocytosis. Serum lactate was 4.99. Systolic BP's > 90. Source = cellulitis RLE. Blood cultures obtained. Received broad spectrum antibiotic coverage with ceftriaxone + daptomycin. Did not receive aggressive fluid resuscitation because he was hemodynamically stable and has history of CHF. Ongoing management as discussed below. (2) Cellulitis of right leg: ID consulted. Receiving IV daptomycin and cefepime with improvement. Blood cultures negative so far. Clinically improved. WBC down. Transition to oral therapy with TMP / sulfa + cephalexin to complete total of 14 days of therapy. (3) Altered mental status: Confused. CT head negative. Metabolic encephalopathy secondary to sepsis. Improved. (4) Coronary artery disease: No anginal symptoms. Continue aspirin, metoprolol, losartan. (5) Systolic CHF, chronic: Compensated. Continue metoprolol succinate, digoxin, losartan, diuretics. (6) Atrial fibrillation: Chronic AF. Rate fast at time of admission, improved. Continue metoprolol, digoxin, and warfarin. INR low. Titrated warfarin. Monitor INR's closely while receiving antibiotics. (7) HTN (hypertension): Continue metoprolol and losartan. (8) Obstructive sleep apnea: Continue CPAP. (9) Diabetes mellitus, type 2: Not well-controlled. Random blood sugar 310 at time of admission. Hgb A1C = 9.5. Held metformin during hospital stay. Received Lantus / NovoLog per protocol. FBS today = 144. Transition back to metformin at time of DC. (10) Gout: Continue colchicine and allopurinol. (11) BPH (benign prostatic hyperplasia): Continue alfuzosin. (12) DVT prophylaxis: Continue warfarin. Received SQ enoxaparin until INR therapeutic. Ambulate. (13) Discharge planning issues: concerned about functional status and fall risk; she requests referral to [facility]. Case Management consulted. Patient accepted at [facility] for inpatient rehab. Family Medicine follow-up with Dr. Scherer. Subjective Recheck for atrial fib, cellulitis, and other problems. Pt was seen in his room around 1100. Doing well. No fever. No chest pain. No cough or SOB. No nausea, vomiting, diarrhea. Right leg feels better. Physical Exam 2 Vital Signs (Past 24 Hours): Last Vital Signs Temp 36.4 C L 10/04/18 07:48 Pulse 89 10/04/18 07:48 Resp 18 10/04/18 07:48 BP 131/87 10/04/18 07:48 Pulse Ox 96 10/04/18 07:48 Constitutional: no acute distress Respiratory: normal respiratory effort, lungs clear to auscultation Cardiovascular: Rate/Rhythm: + abnormal rhythm (irregularly irregular) Heart Sounds: no gallop Extremities: + edema (1+ pretibial) Gastrointestinal (Abdomen): Inspection/Auscultation: normal bowel sounds Percussion/Palpation: abdomen soft; abdomen nontender Skin: + erythema (right leg below knee, resolving, underlying venous stasis changes) Psychiatric: Orientation: alert Results & Data Laboratory Results Laboratory Results - last 24 hr 10/03/18 10/03/18 10/04/18 16:19 20:51 06:49 PT 20.1 H INR 2.1 H POC Glucose 150 H 168 H 10/04/18 10/04/18 07:33 11:18 PT INR POC Glucose 144 H 177 H _ (1) Altered mental status Altered mental status type: unspecified Coma depth: Coma timing: Qualified Code(s): R41.82 - Altered mental status, unspecified
--- NOTE | 2018-10-04 13:51 | Discharge Summary ---
Date of Service Date of admission: 09/29/18 Date of discharge: 10/04/18 Admission HPI Per Admitting Provider Pt is 78 y/o M with PMH A-fib s/p cardioversion in 2009, 2012 and unsuccessful in 2013, CAD, h/o nonischemic congestive cardiomyopathy, gout, HTN, HLD, hypothyroidism, DM II, JOHN on CPAP, obesity, venous insufficiency presented to ER with c/o altered mental status, weakness.Reports patient was at baseline this morning and ate breakfast. Reports BSG has been running in 200s and was in 200s today. States patient went to the bathroom and was walking back from bathroom had a near syncopal episode. Generalized weakness and was noted to have altered mental status with confusion. Was found to be in atrial fibrillation with reported rate up to 180s by EMS and was given Cardizem 10 IV and IVF in route. Since arrival to ER patient mental status back to baseline. Patient is denying any CP, SOB, dizziness, palpitations.Reports chronic cough and postnasal drip, denies any increase. Since being in ER has been c/o R lower leg pain and it was noted to have some erythema to RLE. Reports hit right chavez on something a few days ago and has scab. Denies fever/chills, diaphoresis, N/V/ D/C, CORTES,vision changes, neck pain, sore throat, choking, otalgia, abdominal pain , paresthesias, increased extremity edema, other rashes, urinary symptoms. Admission Exam Per Admitting Provider General: no acute distress, WDWN Head: normocephalic, atraumatic Eyes: PERRL, EOM's intact, conjunctiva non-injected, anicteric ENT: normal inspection external ears, nose, mucous membranes moist Neck: supple, trachea midline Lungs: clear, no respiratory distress, no wheezing/rhonchi/rales CV: irregularly irregular, rate 90, no significant pretibial edema Abd: normal BS, soft, non-tender Ext:chronic venous stasis changes bilateral lower extremities, R lower leg with erythema and warmth and tenderness to palpation, +scabs noted anterior right lower leg, ROM intact, distal pulses intact, brisk capillary refill Neuro: A&O x 3, no focal deficits noted, normal affect Skin: warm, dry, RLE as above Principal Diagnosis severe sepsis due to cellulitis right lower extremity. chronic atrial fibrillation with rapid ventricular response Discharge Data Allergies Allergy/AdvReac Type Severity Reaction Status Date / Time No Known Allergies Allergy Verified 09/29/18 15:36 Consultations 09/29/18 17:34 ED Decision to Admit Stat 09/29/18 21:01 Consult Cardiology Routine Consult Case Management - Discharge Planning Routine Consult Infectious Diseases Routine Ordered Studies 09/29/18 15:17 CT head/brain wo con Stat 09/29/18 21:01 US venous doppler LE RT Urgent Hospital Course (1) Severe sepsis: Met criteria for severe sepsis at time of admission per current CMS criteria- tachcardia, tachypnea, leukocytosis. Serum lactate was 4.99. Systolic BP's > 90. Source = cellulitis RLE. Blood cultures obtained. Received broad spectrum antibiotic coverage with ceftriaxone + daptomycin. Did not receive aggressive fluid resuscitation because he was hemodynamically stable and has history of CHF. Ongoing management as discussed below. (2) Cellulitis of right leg: ID consulted. Received IV daptomycin and cefepime with improvement. Blood cultures negative so far. Clinically improved. WBC down. Transitioning to oral therapy with TMP / sulfa + cephalexin to complete total of 14 days of therapy per ID recommendations. INR, BMP, and digoxin level should be monitored very closely while receiving Bactrim because of potential drug interactions. (3) Altered mental status: Confused. CT head negative. Metabolic encephalopathy secondary to sepsis. Resolved. (4) Coronary artery disease: No anginal symptoms. Continue aspirin, metoprolol, losartan. (5) Systolic CHF, chronic: Compensated. Continue metoprolol succinate, digoxin, losartan, diuretics. (6) Atrial fibrillation: Chronic AF. Rate fast at time of admission, improved. Continue metoprolol, digoxin, and warfarin. INR low. Titrated warfarin. Monitor INR's closely while receiving antibiotics. (7) HTN (hypertension): Continue metoprolol and losartan. (8) Obstructive sleep apnea: Continue CPAP. (9) Diabetes mellitus, type 2: Not well-controlled. Random blood sugar 310 at time of admission. Hgb A1C = 9.5. Held metformin during hospital stay. Received Lantus / NovoLog per protocol. FBS day of discharge weas 144. Transition back to metformin at time of DC. (10) Gout: Continue colchicine and allopurinol. (11) BPH (benign prostatic hyperplasia): Continue alfuzosin. (12) DVT prophylaxis: Continue warfarin. Received SQ enoxaparin until INR therapeutic. Ambulate. (13) Discharge planning issues: concerned about functional status and fall risk; she requests referral to [facility]. Case Management consulted. Patient accepted at [facility] for [facility] rehab. Family Medicine follow-up with Dr. Scherer. Total Time Total Time Spent Total Time Spent (In Minutes): 45 Discharge Plan Discharge Items Patient Disposition: Transfer Inpatient Rehab Fac Reason For Visit: sepsis Discharge Diagnosis: sepsis due to cellulitis right lower extremity chronic atrial fibrillation with rapid ventricular response Condition: Good Discharge Goals: Decrease discomfort and Improve function Activity: Per 'Additional Instructions' section Activity Comment: Use walker. Exercise/Sports: Gradually increase as tolerated Non-emergency contact: Primary Care Provider and Hospitalist Call non-emergency contact if: you have any medication questions, your symptoms worsen and your temperature is above 101 Diet: Carb Consistent or DM2 and Heart Healthy Addtl Provider Instructions: Please monitor INR, BMP, and digoxin levels 3 very closely while receiving Bactrim. (Suggest every other day labs.) Please monitor fingerstick blood sugars. Restarting metformin upon transfer. May or may not need insulin coverage. Please wash lower extremities with soap and water daily. Apply moisturizing lotion to dry skin on legs and feet BID. Thank you for receiving this patient in transfer. Please call if you have any questions. Jitendra Valdivia Prescriptions: New sulfamethoxazole-trimethoprim [Bactrim DS] 800-160 mg tablet 2 tab PO Q12H 9 Days Qty: 36 RF: 0 cephalexin 500 mg capsule 500 mg PO QID 9 Days Qty: 36 RF: 0 Continue metolazone 2.5 mg tablet 2.5 mg PO 2XWK RF: 0 pravastatin 40 mg tablet 40 mg PO HS RF: 0 metoprolol succinate 50 mg tablet extended release 24 hr 150 mg PO QAM RF: 0 metoprolol succinate 50 mg tablet extended release 24 hr 100 mg PO QPM RF: 0 digoxin 250 mcg tablet 250 mcg PO 5XWK RF: 0 spironolactone 25 mg tablet 25 mg PO BID RF: 0 levothyroxine 88 mcg tablet 88 mcg PO QAM RF: 0 potassium chloride [Klor-Con M20] 20 mEq tablet,ER particles/crystals 10 meq PO 2XWK RF: 0 potassium chloride [Klor-Con M20] 20 mEq tablet,ER particles/crystals 40 meq PO QAM RF: 0 furosemide 80 mg tablet 80 mg PO QAM RF: 0 furosemide 80 mg tablet 40 mg PO QPM RF: 0 warfarin 5 mg tablet 5 mg PO 5XWK RF: 0 losartan 25 mg tablet 12.5 mg PO QAM RF: 0 omeprazole 20 mg capsule,delayed release(DR/EC) 20 mg PO QAM RF: 0 allopurinol 300 mg tablet 300 mg PO QAM RF: 0 gabapentin 100 mg capsule 100 mg PO BID RF: 0 colchicine [Colcrys] 0.6 mg tablet 0.6 mg PO BID RF: 0 metformin 500 mg tablet extended release 24 hr 500 mg PO DAILY RF: 0 alfuzosin 10 mg tablet extended release 24 hr 10 mg PO QPM RF: 0 multivitamin Tablet 1 tab PO QAM RF: 0 tramadol 50 mg Tablet 50 mg PO BID PRN (Reason: Pain) RF: 0 docusate sodium 100 mg Capsule 100 mg PO QAM RF: 0 aspirin 81 mg Tablet,Chewable 81 mg PO QAM RF: 0 albuterol sulfate [ProAir HFA] 90 mcg/actuation Hfa Aerosol Inhaler 2 puff INHALATION QID PRN (Reason: Shortness Of Breath Or Wheezing) RF: 0 fluticasone [Flonase Allergy Relief] 50 mcg/actuation [place],Suspension 2 spray INTRANASAL BID PRN (Reason: Nasal Congestion) RF: 0 cholecalciferol (vitamin D3) [Vitamin D3] 1,000 unit Tablet 1,000 units PO QAM RF: 0 diclofenac sodium 1 % Gel 2 g TOPICAL QID RF: 0 Stand-Alone Forms: My [facility]/Other Patient Handouts: Hyperglycemia, Hypoglycemia, Blood Sugar Check Skilled Items Patient informed of condition?: Yes DNR: No Discharge Level of Care: Acute rehab Communicable Disease: No Discharge Prognosis: Improving Admission Data Admit Date/Time: 09/29/18 18:29 Attending Provider: Jitendra Valdivia Admit Provider: Corazon Beckham Primary Care Provider: [place] Scherer Other Providers: Corazon Beckham ; Karel Crenshaw ; Ama Gilman Service: Medical
--- NOTE | 2018-10-04 14:48 | Infectious Disease Progress Nt ---
Date of Service October 04, 2018 Assessment & Plan (1) Cellulitis of right leg: Cellulitis of the right leg in the setting of chronic venous stasis disease and diabetes with associated encephalopathy. Patient has improved on IV antibiotics, to be discharged home on cephalexin and Bactrim to complete 2 weeks of therapy. (2) Encephalopathy: Subjective Patient seen in follow-up for right lower extremity cellulitis. Patient states erythema and swelling improving, remains afebrile, offers no new complaints. Review of Systems All systems reviewed & are unremarkable except as noted in HPI & below Physical Exam 2 Vital Signs (Past 24 Hours): Last Vital Signs Temp 36.4 C L 10/04/18 14:18 Pulse 95 H 10/04/18 14:18 Resp 18 10/04/18 14:18 BP 109/74 10/04/18 14:18 Pulse Ox 96 10/04/18 14:18 Constitutional: WD/WN, vitals as above comfortable; no acute distress Eyes: PERRL, conjunctivae normal, anicteric sclerae ENMT: external ear and nose normal, oropharynx normal Neck: trachea midline, no thyromegaly neck nontender Respiratory: normal respiratory effort, lungs clear to auscultation normal percussion; does not use accessory muscles Cardiovascular: Rate/Rhythm: + abnormal rate and + abnormal rhythm Heart Sounds: normal S1 and normal S2; no gallop, no murmur and no cardiac rub Vessels: normal peripheral pulses; no JVD Gastrointestinal (Abdomen): normal bowel sounds, soft, nontender, no hepatosplenomegaly Musculoskeletal: no cyanosis or clubbing, extremities motor strength 5/5 Spine: thoracic spine normal to inspection and lumbar spine normal to inspection ; no cervical spinal tenderness Skin: no rashes Neurologic: patellar DTR's 2+ bilat, sensation intact no focal motor deficits Psychiatric: A+Ox3, euthymic affect Orientation: cooperative Lymphatic: no cervical or axillary lymphadenopathy no inguinal lymphadenopathy Results & Data Laboratory Results Laboratory Results - last 48 hr 10/02/18 10/02/18 10/03/18 16:25 20:28 06:14 WBC 7.21 RBC 4.56 L Hgb 15.1 Hct 44.6 MCV 97.8 MCH 33.1 MCHC 33.9 RDW Std Deviation 50.2 H RDW Coeff of Shilpi 14.0 Plt Count 155 MPV 11.7 H PT INR Sodium Potassium Chloride Carbon Dioxide Anion Gap BUN Creatinine Est Cr Clr Drug Dosing Est GFR ( Amer) Est GFR (Non-Af Amer) BUN/Creatinine Ratio Glucose POC Glucose 200 H 173 H Calcium Procalcitonin 10/03/18 10/03/18 10/03/18 06:14 06:14 06:14 WBC RBC Hgb Hct MCV MCH MCHC RDW Std Deviation RDW Coeff of Shilpi Plt Count MPV PT 16.5 H INR 1.7 H Sodium 137 Potassium 3.7 Chloride 104 Carbon Dioxide 26 Anion Gap 7.0 BUN 14 Creatinine 0.66 Est Cr Clr Drug Dosing 124.7 Est GFR ( Amer) 107.3 Est GFR (Non-Af Amer) 92.6 BUN/Creatinine Ratio 20.7 H Glucose 138 H POC Glucose Calcium 8.6 Procalcitonin 0.20 10/03/18 10/03/18 10/03/18 07:42 11:45 16:19 WBC RBC Hgb Hct MCV MCH MCHC RDW Std Deviation RDW Coeff of Shilpi Plt Count MPV PT INR Sodium Potassium Chloride Carbon Dioxide Anion Gap BUN Creatinine Est Cr Clr Drug Dosing Est GFR ( Amer) Est GFR (Non-Af Amer) BUN/Creatinine Ratio Glucose POC Glucose 135 H 143 H 150 H Calcium Procalcitonin 10/03/18 10/04/18 10/04/18 20:51 06:49 07:33 WBC RBC Hgb Hct MCV MCH MCHC RDW Std Deviation RDW Coeff of Shilpi Plt Count MPV PT 20.1 H INR 2.1 H Sodium Potassium Chloride Carbon Dioxide Anion Gap BUN Creatinine Est Cr Clr Drug Dosing Est GFR ( Amer) Est GFR (Non-Af Amer) BUN/Creatinine Ratio Glucose POC Glucose 168 H 144 H Calcium Procalcitonin 10/04/18 11:18 WBC RBC Hgb Hct MCV MCH MCHC RDW Std Deviation RDW Coeff of Shilpi Plt Count MPV PT INR Sodium Potassium Chloride Carbon Dioxide Anion Gap BUN Creatinine Est Cr Clr Drug Dosing Est GFR ( Amer) Est GFR (Non-Af Amer) BUN/Creatinine Ratio Glucose POC Glucose 177 H Calcium Procalcitonin Diagnostic Findings Microbiology 09/29/18 21:37 Blood Blood Culture - Preliminary No growth to date. 09/29/18 19:18 Blood Blood Culture - Preliminary No growth to date. 09/29/18 17:20 Blood Blood Culture - Preliminary No growth to date.
== END 2018-10-04 15:56 ==
LOC: ED 14:59 → 2S 18:29 → 4E 10-01 15:28

== ENCOUNTER 2021-06-18 16:39 | Observation (INO) ==
[2021-06-18] MEDS ORDERED: SODIUM CHLORIDE 0.9% 1000ML 1,000 ML IV SCH (19:15)
--- NOTE | 2021-06-18 19:21 | XRay Report ---
SINGLE VIEW CHEST CLINICAL HISTORY: Generalized weakness. FINDINGS: 2 AP, portable, upright chest radiographs are compared to study dated 09/29/2018. The heart is enlarged noting atherosclerotic calcification of the thoracic aorta. The pulmonary vasculature is noncongested. An accessory azygous fissure is incidentally noted. There is bibasilar atelectasis. No airspace consolidation or large pleural effusion is identified. No pneumothorax is seen. The skeletal structures are osteopenic. The bony thorax is grossly intact. IMPRESSION: Cardiomegaly with no acute cardiopulmonary abnormality. ACT 112: Negative or not required by law. Electronically signed by: Everette Tomas M.D. 06/18/2021 7:20 PM
[2021-06-18 19:37] LABS: Basophils # (auto) 0.03 K/uL (0-0.2); Basophils % (auto) 0.2 %; Eosinophils # (auto) 0.13 K/uL (0-0.5); Hematocrit (blood only) 46.9 % (42-52); Hemoglobin 16.3 g/dL (14.0-18.0); Immature Granulocytes # (auto) 0.04 K/uL (0.00-0.02); Immature Granulocytes % (auto) 0.3 %; Lymphocytes # (auto) 4.51 K/uL (1.2-3.4); Lymphocytes % (auto) 36.3 %; Mean Corpuscular Hgb Conc 34.8 g/dL (32-36); Mean Corpuscular Volume 97.9 fL (80-100); Mean Platelet Volume 11.7 fL (7.4-10.4); Monocytes # (auto) 1.38 K/uL (0.11-0.59); Monocytes % (auto) 11.1 %; Neutrophils # (auto) 6.33 K/uL (1.4-6.5); Neutrophils % (auto) 51.1 %; Platelet Count 159 K/uL (130-400); RDW Coefficient of Variation 15.2 % (11.5-14.5); RDW Standard Deviation 54.4 fL (36.4-46.3); Red Blood Count 4.79 M/uL (4.7-6.1); White Blood Count 12.42 K/uL (4.8-10.8)
--- NOTE | 2021-06-18 19:54 | CT Scan Report ---
CT SCAN OF THE BRAIN WITHOUT IV CONTRAST CLINICAL HISTORY: Change in mental status. COMPARISON STUDY: CT of the brain dated 09/29/2018. TECHNIQUE: Unenhanced axial CT scan of the brain is performed from the vertex to the skull base. A do se lowering technique was utilized adhering to the principles of ALARA. CT DOSE: 614.27 mGy.cm FINDINGS: Brain parenchyma: There are age-related involutional changes noting mild subcortical and periventric ular microangiopathic change. There is no hemorrhage, mass effect, or evidence of acute territorial i schemia by CT criteria. [place]-white matter differentiation is preserved. No extra-axial fluid collecti on is seen. Ventricles, sulci, cisterns: Prominent secondary to involutional change. Intracranial vasculature: There is atherosclerotic calcification of the cavernous carotid and vertebr al arteries. Calvarium: Unremarkable. Sinuses and mastoids: The visualized paranasal sinuses are clear. The mastoid air cells are well pneu matized. Orbits: The bony orbits are grossly intact. There are bilateral ocular lens implants. IMPRESSION: There is no hemorrhage, mass effect, or evidence of acute territorial ischemia by CT crit errizwan. ACT 112: Negative or not required by law. Electronically signed by: Everette Tomas M.D. 06/18/2021 7:53 PM
[2021-06-18 20:17] LABS: Alanine Aminotransferase 43 U/L (12-78); Aspartate Aminotransferase 40 U/L (15-37); BUN Creatinine Ratio 20.4 (10-20); Blood Urea Nitrogen 28 mg/dl (7-18); Calcium 9.6 mg/dl (8.5-10.1); Carbon Dioxide 27 mmol/L (21-32); Chloride 94 mmol/L (98-107); Creatinine Clr Calc Pharmacy 56.7 ml/min; Est GFR (African American) 56.1 ml/min; Est GFR (Non-African American) 48.4 ml/min; Glucose 141 mg/dl (70-99); Magnesium 1.9 mg/dl (1.8-2.4); Sodium 129 mmol/L (136-145)
[2021-06-18 20:25] LABS: Albumin Globulin Ratio 1.1 (0.9-2); Alkaline Phosphatase 64 U/L (45-117); Bilirubin,Total 1.1 mg/dl (0.2-1); Globulin 3.8 gm/dl (2.5-4.0); Total Protein 7.8 gm/dl (6.4-8.2); Troponin I < 0.015 ng/ml (0-0.045)
--- NOTE | 2021-06-18 20:40 | Emergency Department Note ---
Impression & Plan Altered mental status, Urinary tract infection, Acute hyponatremia ED Provider Note INFORMANT: Patient ED PROVIDER(S): Jitendra Perez MD CHIEF COMPLAINT: Confusion PLAN: Disposition: Admitted Condition: Good Outpatient prescription management: none Referral: None MEDICAL DECISION MAKING: Patient presented because of confusion. He underwent a work-up. Head CT was negative. The patient's ECG showed an A. fib with some lateral T wave inversion. He had a slight leukocytosis on complete blood count. His chemistry panel revealed hyponatremia. He had a negative troponin and TSH. Magnesium negative. Chest x-ray did not reveal any acute findings. The patient's urinalysis was concerning for infection. He was given IV Rocephin. Further management in the hospital will be necessary. I suspect the UTI is the culprit. [facility] Patient was evaluated in the ER admitted for further management. Triage Nursing notes reviewed and agree them. Vital Signs: reviewed and remarkable for no significant abnormalities Differential diagnosis: Infection, hypoglycemia, electrolyte abnormalities, overdose, toxicologic, cardiac sources, intracerebral event, neurologic, trauma, as well as other pathologies. Diagnostics interpreted by me: ECG: Twelve-lead ECG reveals atrial fibrillation at 71 bpm. Left axis deviation. Inferior Q waves. Lateral T wave inversion present. Cardiac Monitoring: Cardiac monitoring ordered by me: The patient was placed on continuous cardiac monitoring and observed. It revealed atrial fibrillation at 97 bpm. Imaging studies: Head CT: A noncontrast CT scan of the head was performed and was negative for tumor, fracture, intracranial hemorrhage, or other acute pathology. Chest x-ray. Findings: A chest x-ray was performed and revealed no pneumothorax, effusion, infiltrate, pulmonary edema, free air under the diaphragm, or wide mediastinum. Impression: No acute disease. HPI: The patient is a 80 year old male who presents to the Emergency Room with complaints of confusion. This started mostly today but caregiver notes some confusion yesterday is actually somewhat improved now The patient also notes the following associated symptoms, some loose stool. Patient denies any fall. The patient has been given no medication for relieving factors. Current pain is rated as 0/10. Patient notes having some transient pain in his neck but that was when he was sitting in his recliner chair. Caregiver notes that he has been sleeping in his recliner recently. He has not slept well the last few days. He was not responding to her today and seemed confused. PCPs office directed her to bring the patient to the ER for evaluation. She does note that he has been shuffling his gait recently and seems generally weak. He has also had some intermittent lancinating-like pains shooting from his back to his legs. He has neuropathy. Last time an episode like this occurred the patient was diagnosed with an infection but the caregiver does not know what type. Pt denies LOC, headache, fevers, chills, diaphoresis, visual changes, chest pain, breathing difficulties, nausea, vomiting, abdominal pain, back pain, melena, hematochezia, urinary symptoms, numbness, lymphadenopathy, rash, or other complaints. ROS: See above HPI for pertinent positives & negatives. A total of 10 systems reviewed and were otherwise negative. PAST MEDICAL HISTORY:See Below , Helena sanchez PAST SURGICAL HISTORY:See Below, FAMILY HISTORY:See Below SOCIAL HISTORY:See Below, retired HOME MEDICATIONS:See Below ALLERGIES:See Below VITALS:See Below PHYSICAL EXAMINATION: GENERAL: Awake, tired-appearing, in no distress HENT: Normocephalic, atraumatic. Oropharynx unremarkable. EYES: Normal conjunctiva. Sclera non-icteric. NECK: Inspection normal. Non-tender. Supple. No nuchal rigidity. FROM. No masses. RESPIRATORY: Clear to auscultation. No wheezes. No rales. Normal respiratory effort. CARDIAC: Normal rate. Normal rhythm. No murmurs. No rubs. Extremities warm and well perfused. Pulses equal. No JVD. GI: Soft, non-distended. No tenderness to palpation. No rebound or guarding. No masses. RECTAL: Deferred. MUSCULOSKELETAL: Atraumatic. Chest examination reveals no tenderness. The back is symmetrical on inspection without obvious abnormality. There is no CVA tenderness to palpation. No joint edema. LOWER EXTREMITIES: Calves are equal size bilaterally and non-tender. 1+ edema. Chronic venous discoloration. NEURO: Relatively normal sensorium. Generally weak but no no sensory or motor deficits noted except for subjective tingling in the lower extremities which p atient states is chronic. SKIN: No rash or jaundice noted. Jitendra Perez MD Past Med/Surg History Medical History (Updated 06/19/21 @ 02:41 by Jitendra Perez MD) Atrial fibrillation BPH (benign prostatic hyperplasia) Cellulitis Cellulitis of right leg Coronary artery disease "nonocclusive disease per cardiac cath 2009" Diabetes mellitus, type 2 Diabetic peripheral neuropathy associated with type 2 diabetes mellitus Dyslipidemia GERD (gastroesophageal reflux disease) Gout History of adenomatous polyp of colon History of basal cell carcinoma HLD (hyperlipidemia) HTN (hypertension) Hyponatremia Hypothyroidism Obstructive sleep apnea Pulmonary nodule "6 mm RLL; incidental finding on CT abdomen 03/07/16" Severe sepsis Systolic CHF, chronic UTI (urinary tract infection) Surgical History (Updated 05/27/21 @ 17:16 by Tom Cardenas MD) Status post appendectomy Status post inguinal hernia repair Family History Other Hypertension Stroke Social History Smoking Status: Never smoker Hx Alcohol Use: No Hx Substance Use: No Preferred Language: Sinhala Communication Ability: Effective Seed Yeast Operator Required: No Beliefs That Will Affect Care: None Current Living Situation: Family Feels Safe at Home: Yes Assistive Devices: Glasses and Walker Allergies Allergies Allergy/AdvReac Type Severity Reaction Status Date / Time No Known Allergies Allergy Verified 06/18/21 19:11 Home Meds Home Medications Medication Instructions Recorded Confirmed albuterol sulfate 90 mcg/actuation 2 puff INHALATION QID PRN 09/29/18 06/18/21 aerosol inhaler (ProAir HFA) alfuzosin 10 mg tablet,extended 10 mg PO QPM 09/29/18 06/18/21 release 24 hr allopurinol 300 mg tablet 300 mg PO QAM 09/29/18 06/18/21 aspirin 81 mg chewable tablet 81 mg PO QAM 09/29/18 06/18/21 cholecalciferol (vitamin D3) 25 1,000 units PO QAM 09/29/18 06/18/21 mcg (1,000 unit) tablet (Vitamin D3) colchicine 0.6 mg tablet 0.6 mg PO BID 09/29/18 06/18/21 digoxin 250 mcg (0.25 mg) tablet 250 mcg PO DAILY 09/29/18 06/18/21 docusate sodium 100 mg capsule 100 mg PO QAM 09/29/18 06/18/21 fluticasone propionate 50 2 spray INTRANASAL BID PRN 09/29/18 06/18/21 mcg/actuation nasal spray,suspension (Flonase Allergy Relief) furosemide 80 mg tablet See Rx Instructions .ROUTE .COMPLEX 09/29/18 06/18/21 gabapentin 100 mg capsule 100 mg PO BID 09/29/18 06/18/21 levothyroxine 88 mcg tablet 88 mcg PO QAM 09/29/18 06/18/21 losartan 25 mg tablet 12.5 mg PO QAM 09/29/18 06/18/21 metformin 500 mg tablet,extended See Rx Instructions .ROUTE .COMPLEX 09/29/18 06/18/21 release 24 hr metolazone 2.5 mg tablet 2.5 mg PO 2XWK 09/29/18 06/18/21 metoprolol succinate 50 mg See Rx Instructions .ROUTE .COMPLEX 09/29/18 06/18/21 tablet,extended release 24 hr multivitamin 1 tab PO QAM 09/29/18 06/18/21 omeprazole 20 mg capsule,delayed 20 mg PO QAM 09/29/18 06/18/21 release potassium chloride 20 mEq 10 meq PO 2XWK 09/29/18 06/18/21 tablet,extended release(part/cryst) potassium chloride 20 mEq 40 meq PO QAM 09/29/18 06/18/21 tablet,extended release(part/cryst) pravastatin 40 mg tablet 40 mg PO HS 09/29/18 06/18/21 spironolactone 25 mg tablet 25 mg PO BID 09/29/18 06/18/21 tramadol 50 mg tablet 50 mg PO BID PRN 09/29/18 06/18/21 warfarin 5 mg tablet See Rx Instructions .ROUTE .COMPLEX 09/29/18 06/18/21 fenofibrate 54 mg tablet 54 mg PO DAILY 06/18/21 06/18/21 triamcinolone acetonide 0.1 % 1 applic TOPICAL BID PRN 06/18/21 06/18/21 topical cream Results & Data (ED) Vital Signs Vital Signs - 24 hr 06/18/21 16:48 06/18/21 18:40 06/18/21 18:51 Temperature 36.3 C L Temperature Source Temporal Artery Scan Pulse Rate 80 80 Pulse Rate [Apical] 79 Pulse Rate from SpO2 Sensor Respiratory Rate 16 18 16 Respiratory Effort / Characteristics Non-Labored Non-Labored Respiratory Depth Normal Normal Blood Pressure 99/62 L 113/70 Blood Pressure [Right Arm] 113/70 Blood Pressure Mean 74 84 Blood Pressure Mean [Right Arm] 84 Pulse Oximetry 96 92 93 Oxygen Delivery Method Room Air Room Air Room Air Sepsis Recent Fever Within 48 Hours No Sepsis New/Unexplained Change in Mental Status No Sepsis Action Taken by Nursing No Action Required 06/18/21 19:30 06/18/21 20:00 06/18/21 21:06 Temperature Temperature Source Pulse Rate 84 79 79 Pulse Rate [Apical] Pulse Rate from SpO2 Sensor 76 79 Respiratory Rate 22 18 19 Respiratory Effort / Characteristics Respiratory Depth Blood Pressure 127/94 111/71 132/76 Blood Pressure [Right Arm] Blood Pressure Mean 105 84 94 Blood Pressure Mean [Right Arm] Pulse Oximetry 98 97 97 Oxygen Delivery Method Room Air Room Air Room Air Sepsis Recent Fever Within 48 Hours Sepsis New/Unexplained Change in Mental Status Sepsis Action Taken by Nursing 06/18/21 21:30 06/18/21 22:00 06/18/21 23:00 Temperature Temperature Source Pulse Rate 77 84 86 Pulse Rate [Apical] Pulse Rate from SpO2 Sensor 82 81 81 Respiratory Rate 19 16 19 Respiratory Effort / Characteristics Respiratory Depth Blood Pressure 121/88 140/98 122/88 Blood Pressure [Right Arm] Blood Pressure Mean 99 112 99 Blood Pressure Mean [Right Arm] Pulse Oximetry 96 99 98 Oxygen Delivery Method Room Air Room Air Room Air Sepsis Recent Fever Within 48 Hours Sepsis New/Unexplained Change in Mental Status Sepsis Action Taken by Nursing 06/18/21 23:30 06/19/21 00:30 06/19/21 02:10 Temperature Temperature Source Pulse Rate 73 94 H 103 H Pulse Rate [Apical] Pulse Rate from SpO2 Sensor 76 85 105 H Respiratory Rate 13 19 15 Respiratory Effort / Characteristics Respiratory Depth Blood Pressure 117/73 105/60 136/80 Blood Pressure [Right Arm] Blood Pressure Mean 87 75 98 Blood Pressure Mean [Right Arm] Pulse Oximetry 96 98 94 Oxygen Delivery Method Room Air Room Air Room Air Sepsis Recent Fever Within 48 Hours Sepsis New/Unexplained Change in Mental Status Sepsis Action Taken by Nursing 06/19/21 02:20 Temperature Temperature Source Pulse Rate 97 H Pulse Rate [Apical] Pulse Rate from SpO2 Sensor 96 H Respiratory Rate 20 Respiratory Effort / Characteristics Respiratory Depth Blood Pressure 149/93 H Blood Pressure [Right Arm] Blood Pressure Mean 111 Blood Pressure Mean [Right Arm] Pulse Oximetry 94 Oxygen Delivery Method Room Air Sepsis Recent Fever Within 48 Hours Sepsis New/Unexplained Change in Mental Status Sepsis Action Taken by Nursing Laboratory Data Result diagrams: 06/18/21 19:20 06/18/21 19:20 Lab Results 06/18/21 06/18/21 06/18/21 Range/Units 19:20 19:20 19:40 WBC 12.42 H (4.8-10.8) K/uL RBC 4.79 (4.7-6.1) M/uL Hgb 16.3 (14.0-18.0) g/dL Hct 46.9 (42-52) % MCV 97.9 (80-100) fL MCH 34.0 (25-34) pg MCHC 34.8 (32-36) g/dL RDW Std Deviation 54.4 H (36.4-46.3) fL RDW Coeff of Shilpi 15.2 H (11.5-14.5) % Plt Count 159 (130-400) K/uL MPV 11.7 H (7.4-10.4) fL Immature Gran % (Auto) 0.3 % Neut % (Auto) 51.1 % Lymph % (Auto) 36.3 % Iron % (Auto) 11.1 % Eos % (Auto) 1.0 % Baso % (Auto) 0.2 % Neut # (Auto) 6.33 (1.4-6.5) K/uL Lymph # (Auto) 4.51 H (1.2-3.4) K/uL Iron # (Auto) 1.38 H (0.11-0.59) K/uL Eos # (Auto) 0.13 (0-0.5) K/uL Baso # (Auto) 0.03 (0-0.2) K/uL Immature Gran # (Auto) 0.04 H (0.00-0.02) K/uL PT (9.0-12.0) Seconds INR (0.9-1.1) Sodium 129 L (136-145) mmol/L Potassium 4.0 (3.5-5.1) mmol/L Chloride 94 L (98-107) mmol/L Carbon Dioxide 27 (21-32) mmol/L Anion Gap 9.0 (3-11) BUN 28 H (7-18) mg/dl Creatinine 1.37 (0.6-1.4) mg/dl Est Cr Clr Drug Dosing 56.7 ml/min Est GFR ( Amer) 56.1 ml/min Est GFR (Non-Af Amer) 48.4 ml/min BUN/Creatinine Ratio 20.4 H (10-20) Glucose 141 H (70-99) mg/dl Calcium 9.6 (8.5-10.1) mg/dl Magnesium 1.9 (1.8-2.4) mg/dl Total Bilirubin 1.1 H (0.2-1) mg/dl AST 40 H (15-37) U/L ALT 43 (12-78) U/L Alkaline Phosphatase 64 (45-117) U/L Troponin I < 0.015 (0-0.045) ng/ml Total Protein 7.8 (6.4-8.2) gm/dl Albumin 4.0 (3.4-5.0) gm/dl Globulin 3.8 (2.5-4.0) gm/dl Albumin/Globulin Ratio 1.1 (0.9-2) TSH 1.670 (0.300-4.500) uIu/ml Specimen Hemolysis Urine Color Urine Appearance (Clear) Urine pH (4.5-7.5) Ur Specific [place] (1.000-1.030) Urine Protein (Negative) Urine Glucose (UA) (Negative) Urine Ketones (Negative) Urine Blood (Negative) Urine Nitrite (Negative) Urine Bilirubin (Negative) Urine Urobilinogen (Negative) Ur Leukocyte Esterase (Negative) Urine WBC (Auto) (0-5) /hpf Urine RBC (Auto) (0-4) /hpf U Hyaline Cast (Auto) (0-5) /lpf U Epithel Cells (Auto) (0-5) /lpf Urine Bacteria (Auto) (Negative) Urine Yeast COVID-19 Eval Order Covid19 at [facility] SARS-CoV-2 (PCR) (Negative) 06/18/21 06/18/21 06/18/21 Range/Units 19:40 20:55 21:14 WBC (4.8-10.8) K/uL RBC (4.7-6.1) M/uL Hgb (14.0-18.0) g/dL Hct (42-52) % MCV (80-100) fL MCH (25-34) pg MCHC (32-36) g/dL RDW Std Deviation (36.4-46.3) fL RDW Coeff of Shilpi (11.5-14.5) % Plt Count (130-400) K/uL MPV (7.4-10.4) fL Immature Gran % (Auto) % Neut % (Auto) % Lymph % (Auto) % Iron % (Auto) % Eos % (Auto) % Baso % (Auto) % Neut # (Auto) (1.4-6.5) K/uL Lymph # (Auto) (1.2-3.4) K/uL Iron # (Auto) (0.11-0.59) K/uL Eos # (Auto) (0-0.5) K/uL Baso # (Auto) (0-0.2) K/uL Immature Gran # (Auto) (0.00-0.02) K/uL PT 19.4 H (9.0-12.0) Seconds INR 2.0 H (0.9-1.1) Sodium (136-145) mmol/L Potassium (3.5-5.1) mmol/L Chloride (98-107) mmol/L Carbon Dioxide (21-32) mmol/L Anion Gap (3-11) BUN (7-18) mg/dl Creatinine (0.6-1.4) mg/dl Est Cr Clr Drug Dosing ml/min Est GFR ( Amer) ml/min Est GFR (Non-Af Amer) ml/min BUN/Creatinine Ratio (10-20) Glucose (70-99) mg/dl Calcium (8.5-10.1) mg/dl Magnesium (1.8-2.4) mg/dl Total Bilirubin (0.2-1) mg/dl AST (15-37) U/L ALT (12-78) U/L Alkaline Phosphatase (45-117) U/L Troponin I (0-0.045) ng/ml Total Protein (6.4-8.2) gm/dl Albumin (3.4-5.0) gm/dl Globulin (2.5-4.0) gm/dl Albumin/Globulin Ratio (0.9-2) TSH (0.300-4.500) uIu/ml Specimen Hemolysis Urine Color Dark Yellow Urine Appearance Cloudy A (Clear) Urine pH 5.5 (4.5-7.5) Ur Specific [place] 1.015 (1.000-1.030) Urine Protein Negative (Negative) Urine Glucose (UA) Negative (Negative) Urine Ketones Negative (Negative) Urine Blood Trace H (Negative) Urine Nitrite Negative (Negative) Urine Bilirubin Negative (Negative) Urine Urobilinogen Negative (Negative) Ur Leukocyte Esterase 3+ H (Negative) Urine WBC (Auto) >30 H (0-5) /hpf Urine RBC (Auto) 0-4 (0-4) /hpf U Hyaline Cast (Auto) 5-10 H (0-5) /lpf U Epithel Cells (Auto) >30 H (0-5) /lpf Urine Bacteria (Auto) 1+ H (Negative) Urine Yeast Not Reportable COVID-19 Eval Order SARS-CoV-2 (PCR) NEGATIVE (Negative) Administered Medications Sodium Chloride (Nss 1000ml) 1,000 mls @ 125 mls/hr IV .Q8H GALO Stop: 06/19/21 03:14 Last Admin: 06/18/21 19:53 Dose: 125 mls/hr Documented by: [id number] Discontinued Medications Ceftriaxone Sodium (Rocephin) 2,000 mg in 70 mls @ 140 mls/hr IV NOW STA Stop: 06/18/21 23:04 Last Infusion: 06/18/21 23:23 Dose: 0 mls/hr Documented by: [id number] Admin: 06/18/21 22:53 Dose: 140 mls/hr Documented by: [id number] Imaging Data Radiologist's Impression: Head CT 06/18/21 19:03 CT SCAN OF THE BRAIN WITHOUT IV CONTRAST CLINICAL HISTORY: Change in mental status. COMPARISON STUDY: CT of the brain dated 09/29/2018. TECHNIQUE: Unenhanced axial CT scan of the brain is performed from the vertex to the skull base. A dose lowering technique was utilized adhering to the principles of ALARA. CT DOSE: 614.27 mGy.cm FINDINGS: Brain parenchyma: There are age-related involutional changes noting mild subcortical and periventricular microangiopathic change. There is no hemorrhage, mass effect, or evidence of acute territorial ischemia by CT criteria. [place]- white matter differentiation is preserved. No extra-axial fluid collection is seen. Ventricles, sulci, cisterns: Prominent secondary to involutional change. Intracranial vasculature: There is atherosclerotic calcification of the cavernous carotid and vertebral arteries. Calvarium: Unremarkable. Sinuses and mastoids: The visualized paranasal sinuses are clear. The mastoid air cells are well pneumatized. Orbits: The bony orbits are grossly intact. There are bilateral ocular lens implants. IMPRESSION: There is no hemorrhage, mass effect, or evidence of acute territorial ischemia by CT criteria. ACT 112: Negative or not required by law. Electronically signed by: Everette Tomas M.D. 06/18/2021 7:53 PM Chest X-Ray 06/18/21 19:04 SINGLE VIEW CHEST CLINICAL HISTORY: Generalized weakness. FINDINGS: 2 AP, portable, upright chest radiographs are compared to study dated 09/29/2018. The heart is enlarged noting atherosclerotic calcification of the thoracic aorta. The pulmonary vasculature is noncongested. An accessory azygous fissure is incidentally noted. There is bibasilar atelectasis. No airspace consolidation or large pleural effusion is identified. No pneumothorax is seen. The skeletal structures are osteopenic. The bony thorax is grossly intact. IMPRESSION: Cardiomegaly with no acute cardiopulmonary abnormality. ACT 112: Negative or not required by law. Electronically signed by: Everette Tomas M.D. 06/18/2021 7:20 PM Discharge Plan Visit Data Chief Complaint: Diarrhea Stated Complaint: CONFUSED, DIARRHEA, SHOOTING PAIN IN FOOT ED Provider: Jitendra Perez Discharge Problem: Altered mental status, Urinary tract infection, Acute hyponatremia Forms Stand Alone Forms: My [facility] Prescriptions Prescriptions: No Action metolazone 2.5 mg tablet 2.5 mg PO 2XWK RF: 0 pravastatin 40 mg tablet 40 mg PO HS RF: 0 metoprolol succinate 50 mg tablet extended release 24 hr See Rx Instructions .ROUTE .COMPLEX RF: 0 digoxin 250 mcg tablet 250 mcg PO DAILY RF: 0 spironolactone 25 mg tablet 25 mg PO BID RF: 0 levothyroxine 88 mcg tablet 88 mcg PO QAM RF: 0 potassium chloride 20 mEq tablet,ER particles/crystals 10 meq PO 2XWK RF: 0 potassium chloride 20 mEq tablet,ER particles/crystals 40 meq PO QAM RF: 0 furosemide 80 mg tablet See Rx Instructions .ROUTE .COMPLEX RF: 0 warfarin 5 mg tablet See Rx Instructions .ROUTE .COMPLEX RF: 0 losartan 25 mg tablet 12.5 mg PO QAM RF: 0 omeprazole 20 mg capsule,delayed release(DR/EC) 20 mg PO QAM RF: 0 allopurinol 300 mg tablet 300 mg PO QAM RF: 0 gabapentin 100 mg capsule 100 mg PO BID RF: 0 colchicine 0.6 mg tablet 0.6 mg PO BID RF: 0 metformin 500 mg tablet extended release 24 hr See Rx Instructions .ROUTE .COMPLEX RF: 0 alfuzosin 10 mg tablet extended release 24 hr 10 mg PO QPM RF: 0 multivitamin Tablet 1 tab PO QAM RF: 0 tramadol 50 mg Tablet 50 mg PO BID PRN (Reason: Pain) RF: 0 docusate sodium 100 mg Capsule 100 mg PO QAM RF: 0 aspirin 81 mg Tablet,Chewable 81 mg PO QAM RF: 0 albuterol sulfate [ProAir HFA] 90 mcg/actuation Hfa Aerosol Inhaler 2 puff INHALATION QID PRN (Reason: Shortness Of Breath Or Wheezing) RF: 0 fluticasone propionate [Flonase Allergy Relief] 50 mcg/actuation [place],Suspension 2 spray INTRANASAL BID PRN (Reason: Nasal Congestion) RF: 0 cholecalciferol (vitamin D3) [Vitamin D3] 1,000 unit Tablet 1,000 units PO QAM RF: 0 triamcinolone acetonide 0.1 % Cream 1 applic TOPICAL BID PRN (Reason: Skin Irritation) RF: 0 fenofibrate 54 mg tablet 54 mg PO DAILY RF: 0 Referrals Referrals: Chico Scherer MD [Primary Care Provider] -
[2021-06-18 21:35] LABS: Prothrombin Time 19.4 Seconds (9.0-12.0)
[2021-06-18 21:40] LABS: Appearance Urine Cloudy (Clear); Bacteria Urine Automated 1+ (Negative); Bilirubin Urine Negative (Negative); Blood Urine Trace (Negative); Color Urine Dark Yellow; Epithelial Cell Urine Auto >30 /lpf (0-5); Glucose Urine UA Negative (Negative); Ketones Urine Negative (Negative); Leukocyte Esterase Urine 3+ (Negative); Nitrite Urine Negative (Negative); Protein Urine Negative (Negative); RBC Urine Automated 0-4 /hpf (0-4); Specific Gravity Urine 1.015 (1.000-1.030); Urobilinogen Urine Negative (Negative); WBC Urine Automated >30 /hpf (0-5); pH Urine 5.5 (4.5-7.5)
[2021-06-18] MEDS ORDERED: cefTRIAXone SODIUM 2,000 MG/70 ML BAG IV STA (22:35)
[2021-06-19] MEDS ORDERED: TRIAMCINOLONE ACET 0.1% CR 15 GM TUBE TOP PRN (04:10)
[2021-06-19] MEDS ORDERED: ACETAMINOPHEN 325 MG TAB PO PRN (04:10)
[2021-06-19] MEDS ORDERED: ONDANSETRON INJ 2 MG/ML 2 ML VIAL IV PRN (04:10)
[2021-06-19] MEDS ORDERED: FLUTICASONE PROPIONATE NA SPR 16 GM BTL PRN (04:10)
[2021-06-19] MEDS ORDERED: SODIUM CHLORIDE 0.9% 1000ML 1,000 ML IV SCH (04:10)
[2021-06-19] MEDS ORDERED: traMADol HCL 50 MG TABLET PO PRN (04:10)
[2021-06-19] MEDS ORDERED: ALBUTEROL HFA 8 GM INHALER INH PRN (04:23)
[2021-06-19 06:24] LABS: Basophils # (auto) 0.01 K/uL (0-0.2); Basophils % (auto) 0.1 %; Hematocrit (blood only) 43.7 % (42-52); Hemoglobin 15.2 g/dL (14.0-18.0); Immature Granulocytes # (auto) 0.03 K/uL (0.00-0.02); Immature Granulocytes % (auto) 0.3 %; Lymphocytes # (auto) 2.74 K/uL (1.2-3.4); Lymphocytes % (auto) 27.5 %; Mean Corpuscular Hemoglobin 33.8 pg (25-34); Mean Corpuscular Hgb Conc 34.8 g/dL (32-36); Mean Corpuscular Volume 97.1 fL (80-100); Mean Platelet Volume 11.8 fL (7.4-10.4); Monocytes # (auto) 0.98 K/uL (0.11-0.59); Monocytes % (auto) 9.8 %; Neutrophils # (auto) 6.11 K/uL (1.4-6.5); Neutrophils % (auto) 61.3 %; Platelet Count 166 K/uL (130-400); RDW Coefficient of Variation 15.3 % (11.5-14.5); RDW Standard Deviation 54.6 fL (36.4-46.3); White Blood Count 9.97 K/uL (4.8-10.8)
[2021-06-19] MEDS: LEVOTHYROXINE SODIUM 88 MCG TABLET PO SCH (06:25)
[2021-06-19 06:34] LABS: INR 1.8 (0.9-1.1); Prothrombin Time 17.5 Seconds (9.0-12.0)
[2021-06-19 07:09] LABS: BUN Creatinine Ratio 22.6 (10-20); Calcium 8.6 mg/dl (8.5-10.1); Creatinine Clr Calc Pharmacy 71.2 ml/min; Est GFR (African American) 73.9 ml/min; Est GFR (Non-African American) 63.8 ml/min; Potassium 3.4 mmol/L (3.5-5.1)
--- NOTE | 2021-06-19 08:01 | History and Physical Report ---
DATE OF ADMISSION: 06/18/2021. CHIEF COMPLAINT: Confusion and UTI. HISTORY OF PRESENT ILLNESS: This is an 80-year-old male with past medical history significant for type 2 diabetes, hyperlipidemia, hypothyroidism, obstructive sleep apnea, cardiomyopathy, permanent atrial fibrillation, hypertension, tachycardia-induced cardiomyopathy, CAD, obesity, GERD, gout arthropathy, venous stasis dermatitis, secondary polycythemia, lives at home with his was brought in because of confusion. is in the room. As per the , the patient was staring today and seemed confused. When this happened before, he had an infection, so he was brought in here and found to have UTI. The patient is currently alert and awake and somewhat hard of hearing. Most of the history was gotten from the and whenever the patient was asked questions, he answered appropriately. There was no complaint of headache or chest pain. No nausea, vomiting. No abdominal pain. He had episodes of diarrhea today and it was somewhat dark color. Normal bladder movements. No complaints of any burning micturition. No fevers, no blurred visions, no runny nose, no sore throat, no cough. Appetite is okay. Currently resting comfortably and hemodynamically stable. ALLERGIES: No known drug allergies. PAST MEDICAL HISTORY: As mentioned above. PAST SURGICAL HISTORY: Left heart catheterization, colonoscopy, colonoscopy with biopsy, appendectomy, tonsillectomy, cataract surgery, inguinal hernia repair. MEDICATIONS: The patient is on albuterol 2 puffs inhalation q.i.d., alfuzosin 10 mg p.o. a.m., allopurinol 300 mg p.o. a.m., aspirin 81 mg p.o. p.m., vitamin D 1000 units p.o. a.m., colchicine 0.6 mg p.o. b.i.d., digoxin 250 mcg p.o. daily, Colace 100 mg p.o. a.m., fenofibrate 54 mg p.o. daily, Flonase 2 sprays intranasal b.i.d. p.r.n., Lasix 80 mg in the a.m. and 40 mg in the p.m., gabapentin 100 mg p.o. b.i.d., levothyroxine 88 mcg p.o. daily, losartan 12.5 mg p.o. daily, metformin 500 mg in the a.m. and 1000 mg in p.m., metolazone 2.5 mg p.o. 2 times a week, metoprolol succinate 150 mg in the a.m. and 100 mg in the evening, multivitamin one tablet daily, omeprazole 20 mg p.o. daily, potassium chloride 10 mEq p.o. 2 times a week while taking metolazone, potassium chloride 40 mEq p.o. daily, pravastatin 40 mg p.o. at bedtime, spironolactone 25 mg p.o. b.i.d., tramadol 50 mg p.o. b.i.d. p.r.n., triamcinolone application p.r.n., warfarin as directed. FAMILY HISTORY: Significant for mother has cirrhosis, brother has hypertension, father has stroke. SOCIAL HISTORY: , lives with his . Quit smoking in 1979, smoked 1 pack a day for 10 years. No alcohol use. No drug use. REVIEW OF SYSTEMS: As per HPI. Rest of the review of symptoms negative. PHYSICAL EXAMINATION: GENERAL: The patient is obese, not in acute distress. VITAL SIGNS: Temperature 36.3, pulse 94, respiratory rate 19, blood pressure 105/60, oxygen 96% on room air. HEENT: Pupils equal, round and reactive to light. Oral mucosa moist. NECK: No JVD. No neck masses. CARDIOVASCULAR: S1 and S2 heard. Regular rate and rhythm. No murmur, no gallop. RESPIRATORY SYSTEM: Normal AP diameter. No accessory muscle use. No wheezing, no crackles. ABDOMEN: Soft, bowel sounds present, nontender, no distention. CENTRAL NERVOUS SYSTEM: Alert and awake. Speech is clear. No facial droop. Obeys simple commands, answers simple questions. Moves extremities. EXTREMITIES: Chronic skin changes seen. No obvious erythema seen. LABORATORY DATA: WBC 12.4, hemoglobin 16.3, hematocrit 46.9, platelets 159. PT 9.4, INR 2. Sodium 129, potassium 4, chloride 94, CO2 of 27, BUN 28, creatinine 1.3, serum glucose 141, calcium 9.6, magnesium 1.9, total bilirubin 1.1, AST 40, ALT 43, alkaline phosphatase 64. Troponin I less than 0.015. TSH is 1.6. Urinalysis, +3 leukocyte esterase and +1 bacteria. SARS-CoV-2 PCR negative. IMAGING DATA: Chest x-ray, no acute findings. CT of the head, no acute findings. EKG: Undetermined rhythm at the rate of 71. ST-T abnormalities seen. ASSESSMENT AND PLAN: This is an 80-year-old male who presents with confusion from the urinary tract infection. 1. Confusion: Most likely metabolic encephalopathy secondary to urinary tract infection, started on Rocephin. Follow the cultures. PT, OT when stable. 2. Diarrhea: Will monitor. If persistent, will do clostridium difficile. 3. Hyponatremia, sodium of 129: Follow the urine osmolality, urine sodium, and serum osmolality. Getting gentle fluids. Follow the repeat labs in the a.m. If worsening, will consult nephrology. 4. Diabetes: Hold metformin. Placed on insulin sliding scale. Will follow the blood sugars. 5. Sleep apnea: On CPAP at bedtime. 6. Hyperlipidemia: Continue fenofibrate and pravastatin. 7. History of permanent atrial fibrillation: Rate controlled with metoprolol and digoxin. The patient is on Coumadin. Follow PT/INR. 8. History of coronary artery disease: On beta naomy, statin, and aspirin. 9. History of gout: On allopurinol and colchicine. 10. Gastroesophageal reflux disease: On omeprazole. 11. Hypertension: On losartan, Toprol-XL, and diuretics. Will monitor the blood pressure. 12. Hypothyroidism: On Synthroid. 13. Chronic diastolic and systolic congestive heart failure, grade III diastolic congestive heart failure, EF of 49%. On diuretics, losartan, and metoprolol. Will monitor for any volume overload. On gentle fluids.. 14. Deep venous thrombosis prophylaxis: On Coumadin. Follow PT/INR. DISPOSITION: Closely monitor in medical floor. PT/OT prior to discharge. Social service to help with discharge planning. Job ID: [id number] [facility]
[2021-06-19] MEDS ORDERED: GLUCOSE 40% GEL 15 GM TUBE PO PRN (08:15)
[2021-06-19] MEDS ORDERED: GLUCOSE 10 TABS/TUBE PO PRN (08:15)
[2021-06-19] MEDS ORDERED: CARBOHYDRATES FOR HYPOGLYCEMIA PO PRN (08:15)
[2021-06-19] MEDS ORDERED: GLUCAGON FOR INJ 1 MG VIAL IM PRN (08:15)
[2021-06-19] MEDS ORDERED: DEXTROSE 50% 50 ML SYRINGE IV PRN (08:15)
[2021-06-19] MEDS ORDERED: metOLazone 2.5 MG TABLET PO SCH (09:00)
[2021-06-19] MEDS ORDERED: POTASSIUM CHLORIDE 10 MEQ TABCR PO SCH (09:00)
[2021-06-19] MEDS: *FENOFIBRATE*ORDER AWAITING ACTION SCH ×3 (09:10→23:29)
[2021-06-19] MEDS: POTASSIUM CHLORIDE CRTAB 20 MEQ TABCR PO SCH (09:12)
[2021-06-19] MEDS: SPIRONOLACTONE 25 MG TAB PO SCH ×2 (09:14→21:00)
[2021-06-19] MEDS: LOSARTAN POTASSIUM 25 MG TAB PO SCH (09:14)
[2021-06-19] MEDS: METOPROLOL SUCC 50MG EXT REL TAB PO SCH (09:15)
[2021-06-19] MEDS: FUROSEMIDE 80 MG TAB PO SCH (09:15)
[2021-06-19] MEDS: PANTOprazole 40 MG TAB PO SCH (09:15)
[2021-06-19] MEDS: DOCUSATE SODIUM 100 MG CAP PO SCH (09:16)
[2021-06-19] MEDS: allopurinoL 300 MG TAB PO SCH (09:16)
[2021-06-19] MEDS: MULTIVITAMIN TAB PO SCH (09:16)
[2021-06-19] MEDS: CHOLECALCIFEROL 1,000 UNITS 25 MCG TAB PO SCH (09:16)
[2021-06-19] MEDS: COLCHICINE 0.6 MG TAB PO SCH ×2 (09:16→20:58)
[2021-06-19] MEDS: DIGOXIN 0.25 MG TAB PO SCH (09:17)
[2021-06-19] MEDS: ASPIRIN 81 MG CHEW PO SCH (09:17)
[2021-06-19] MEDS: GABAPENTIN 100 MG CAP PO SCH ×2 (09:17→20:58)
[2021-06-19 09:28] LABS: Estimated Average Glucose 174 mg/dl; Hemoglobin A1C 7.7 % (4.5-5.6)
[2021-06-19] MEDS ORDERED: POTASSIUM CHLORIDE CRTAB 20 MEQ TABCR PO STA (09:51)
--- NOTE | 2021-06-19 10:56 | Electrocardiogram Report ---
Test Reason : Blood Pressure : / mmHG Vent. Rate : 071 BPM Atrial Rate : 091 BPM P-R Int : 000 ms QRS Dur : 090 ms QT Int : 390 ms P-R-T Axes : 000 -38 159 degrees QTc Int : 423 ms Poor data quality, interpretation may be adversely affected Atrial fibrillation Left axis deviation Inferior infarct , age undetermined Poor R wave progression, consider anterior OK vs. lead placement vs. LVH Abnormal ECG When compared with ECG of 01-OCT-2018 06:28, Borderline criteria for Anterior infarct are now Present T wave inversion now evident in Lateral leads Confirmed by Otto Luevano ([id number]) on 06/19/2021 10:55:50 AM Referred By: Chico Scherer Confirmed By:Richard Luevano
[2021-06-19] MEDS: INSULIN ASPART 100 UNITS/ML 3 ML PEN SC SCH ×3 (13:21→21:07)
[2021-06-19] MEDS ORDERED: WARFARIN SOD 2.5 MG TAB PO SCH (16:00)
[2021-06-19] MEDS: WARFARIN SOD 5 MG TAB PO SCH (16:42)
[2021-06-19] MEDS ORDERED: FUROSEMIDE 40 MG TAB PO SCH (17:00)
--- NOTE | 2021-06-19 18:40 | Hospitalist Progress Note ---
Date of Service June 19, 2021 Assessment & Plan (1) Urinary tract infection: Plan: UA is suggestive of infection and probably has UTI Has been on ceftriaxone He has been feeling much better Await culture (2) Altered mental status: Plan: Presented with acute mental status changes-resolved now Likely has incompatibility secondary to UTI CT scan of the head has been negative Has improved without any more count confusion during examination (3) Acute hyponatremia: Plan: Sodium was 129 on admission Improved to 131 on 06/19/2021 We will monitor (4) Atrial fibrillation: Plan: Rate is controlled Continue current medications No acute cardiac symptom On Coumadin (5) HTN (hypertension): Plan: Remains on the upper side at 143/90 We will continue his current medications (6) Hypothyroidism: Plan: Continue replacement (7) Diabetes mellitus, type 2: Plan: Hemoglobin A1c 7.7 Continue with SSI (8) Systolic CHF, chronic: Plan: History of combined systolic and diastolic heart failure Chest x-ray shows cardiomegaly but no fluid overload Continue Lasix as before DVT prophylaxis On Coumadin and INR is 1.8 today We will check INR tomorrow Admission and Anticipated Discharge Date Admission Date: June 19, 2021 Subjective 06/19/2021 The patient was seen and examined in medical floor He has been feeling much better and denies any more confusion He wants to go home Review of Systems Review of Systems: All systems reviewed and are unremarkable except as noted below Genitourinary: + difficulty urinating; no dysuria, no urinary frequency, no urinary hesitancy or no hematuria Physical Exam Physical Exam: Sitting on a chair without any acute distress Constitutional: well developed, well nourished and + obese; not ill appearing Eyes: PERRL, conjunctivae normal, anicteric sclerae ENMT: external ear and nose normal, oropharynx normal Neck: trachea midline, no thyromegaly Respiratory: no respiratory distress and no cough Auscultation: lungs clear to auscultation bilaterally Cardiovascular: Rate/Rhythm: regular rate, regular rhythm and + tachycardic Heart Sounds: normal S1 and normal S2 Extremities: + edema (Trace edema bilaterally) Gastrointestinal (Abdomen): Inspection/Auscultation: + abdomen distended and normal bowel sounds Percussion/Palpation: abdomen soft; abdomen nontender Musculoskeletal: No acute arthritis in any joint Neurologic: Alert, awake and oriented x3. No focal sensory or motor deficit appreciated Psychiatric: A+Ox3, euthymic affect Lymphatic: no cervical or axillary lymphadenopathy Results & Data Results & Data ([facility]) Vital Signs (Past 12 Hours) Vital Signs Temp Pulse Resp BP BP Pulse Ox 06/19/21 16:26 36.8 C 100 H 17 143/90 H 97 06/19/21 07:26 36.7 C 85 18 128/79 97 Laboratory Results Short CBC 06/18/21 06/19/21 Range/Units 19:20 05:34 WBC 12.42 H 9.97 (4.8-10.8) K/uL Hgb 16.3 15.2 (14.0-18.0) g/dL Hct 46.9 43.7 (42-52) % Plt Count 159 166 (130-400) K/uL BMP 06/18/21 06/19/21 19:20 05:34 Sodium 129 L 131 L Potassium 4.0 3.4 L Chloride 94 L 95 L Carbon Dioxide 27 29 BUN 28 H 25 H Creatinine 1.37 1.09 Glucose 141 H 165 H Calcium 9.6 8.6 Cardiac Enzymes 06/18/21 Range/Units 19:20 Troponin I < 0.015 (0-0.045) ng/ml Liver Function 06/18/21 Range/Units 19:20 Total Bilirubin 1.1 H (0.2-1) mg/dl AST 40 H (15-37) U/L ALT 43 (12-78) U/L Alkaline Phosphatase 64 (45-117) U/L Albumin 4.0 (3.4-5.0) gm/dl Urine 06/18/21 Range/Units 20:55 Urine Color Dark Yellow Urine Appearance Cloudy A (Clear) Urine pH 5.5 (4.5-7.5) Ur Specific [place] 1.015 (1.000-1.030) Urine Protein Negative (Negative) Urine Glucose (UA) Negative (Negative) Medications Administered Current Inpatient Medications Acetaminophen (Acetaminophen 325 Mg Tab) 650 mg PO Q4H PRN PRN Reason: pain/fever Stop: 07/19/21 04:09 Albuterol (Albuterol Hfa 8 Gm Inhaler) 2 puffs INH QIDR PRN PRN Reason: Shortness Of Breath Or Wheezing Stop: 07/19/21 04:22 Alfuzosin HCl (Alfuzosin Hcl 10 Mg Tab) 10 mg PO QPM [facility] Stop: 07/19/21 20:59 Allopurinol (Allopurinol 300 Mg Tab) 300 mg PO QAM [facility] Stop: 07/19/21 08:59 Last Admin: 06/19/21 09:16 Dose: 300 mg Documented by: Aspirin (Aspirin 81 Mg Chew) 81 mg PO QAM [facility] Stop: 07/19/21 08:59 Last Admin: 06/19/21 09:17 Dose: 81 mg Documented by: Colchicine (Colchicine 0.6 Mg Tab) 0.6 mg PO BID [facility] Stop: 07/19/21 08:59 Last Admin: 06/19/21 09:16 Dose: 0.6 mg Documented by: Dextrose (Dextrose 50% 50 Ml Syringe) 25 - 50 ml IV UD PRN; Protocol PRN Reason: Hypoglycemia Protocol Stop: 07/19/21 08:14 Digoxin (Digoxin 0.25 Mg Tab) 0.25 mg PO DAILY [facility] Stop: 07/19/21 08:59 Last Admin: 06/19/21 09:17 Dose: 0.25 mg Documented by: Docusate Sodium (Docusate Sodium 100 Mg Cap) 100 mg PO QAM [facility] Stop: 07/19/21 08:59 Last Admin: 06/19/21 09:16 Dose: 100 mg Documented by: Fluticasone Propionate (Fluticasone Propionate Na Spr 16 Gm Btl) 2 sprays NA BID PRN PRN Reason: Nasal Congestion Stop: 07/19/21 04:09 Furosemide (Furosemide 80 Mg Tab) 80 mg PO QAM [facility] Stop: 07/19/21 08:59 Last Admin: 06/19/21 09:15 Dose: 80 mg Documented by: Furosemide (Furosemide 40 Mg Tab) 40 mg PO DAILY@1700 [facility] Stop: 07/19/21 16:59 Last Admin: 06/19/21 17:55 Dose: 40 mg Documented by: Gabapentin (Gabapentin 100 Mg Cap) 100 mg PO BID [facility] Stop: 07/19/21 08:59 Last Admin: 06/19/21 09:17 Dose: 100 mg Documented by: Glucagon (Glucagon For Inj 1 Mg Vial) 1 mg IM UD PRN; Protocol PRN Reason: Hypoglycemia Protocol Stop: 07/19/21 08:14 Glucose (Glucose 40% Gel 15 Gm Tube) 15 - 30 gm PO UD PRN; Protocol PRN Reason: Hypoglycemia Protocol Stop: 07/19/21 08:14 Glucose (Glucose 10 Tabs/Tube) 4 - 8 tabs PO UD PRN; Protocol PRN Reason: Hypoglycemia Protocol Stop: 07/19/21 08:14 Ceftriaxone Sodium 2,000 mg/ (Dextrose) 70 mls @ 140 mls/hr IV Q24H [facility]; Protocol Stop: 06/29/21 21:59 Sodium Chloride (Nss 1000ml) 1,000 mls @ 50 mls/hr IV .Q20H [facility] Stop: 06/20/21 00:09 Last Admin: 06/19/21 04:31 Dose: 50 mls/hr Documented by: Insulin Aspart (Insulin Aspart 100 Units/Ml 3 Ml Pen) 0 units SC ACHS [facility] Stop: 07/19/21 11:29 Last Admin: 06/19/21 17:56 Dose: 5 units Documented by: Levothyroxine Sodium (Levothyroxine Sodium 88 Mcg Tablet) 88 mcg PO DAILYBB [facility] Stop: 07/19/21 06:29 Last Admin: 06/19/21 06:25 Dose: 88 mcg Documented by: Losartan Potassium (Losartan Potassium 25 Mg Tab) 12.5 mg PO QAM [facility] Stop: 07/19/21 08:59 Last Admin: 06/19/21 09:14 Dose: 12.5 mg Documented by: Metolazone (Metolazone 2.5 Mg Tablet) 2.5 mg PO SuWe@0900 [facility] Stop: 07/19/21 08:59 Last Admin: 06/19/21 09:17 Dose: 2.5 mg Documented by: Metoprolol Succinate (Metoprolol Succ 50mg Ext Rel Tab) 150 mg PO QAM [facility] Stop: 07/19/21 08:59 Last Admin: 06/19/21 09:15 Dose: 150 mg Documented by: Metoprolol Succinate (Metoprolol Succ 50mg Ext Rel Tab) 100 mg PO PM [facility] Stop: 07/19/21 20:59 Miscellaneous (*Fenofibrate*Order Awaiting Action) 1 ea N/A QS [facility] Stop: 07/19/21 07:59 Last Admin: 06/19/21 15:02 Dose: Not Given Documented by: Miscellaneous (Carbohydrates For Hypoglycemia ) 15 - 30 gm PO UD PRN PRN Reason: Hypoglycemia Treatment Stop: 07/19/21 08:14 Multivitamins (Multivitamin Tab) 1 tab PO [facility] Stop: 07/19/21 08:59 Last Admin: 06/19/21 09:16 Dose: 1 tab Documented by: Ondansetron HCl (Ondansetron Inj 2 Mg/Ml 2 Ml Vial) 4 mg IV Q6H PRN PRN Reason: Nausea Stop: 07/19/21 04:09 Pantoprazole Sodium (Pantoprazole 40 Mg Tab) 40 mg PO [facility]; Protocol Stop: 07/19/21 08:59 Last Admin: 06/19/21 09:15 Dose: 40 mg Documented by: Potassium Chloride (Potassium Chloride 10 Meq Tabcr) 10 meq PO SuWe@0900 [facility] Stop: 07/19/21 08:59 Last Admin: 06/19/21 09:22 Dose: 10 meq Documented by: Potassium Chloride (Potassium Chloride Crtab 20 Meq Tabcr) 40 meq PO [facility] Stop: 07/19/21 08:59 Last Admin: 06/19/21 09:12 Dose: 40 meq Documented by: Pravastatin Sodium (Pravastatin Sod 40 Mg Tab) 40 mg PO HS [facility] Stop: 07/19/21 20:59 Spironolactone (Spironolactone 25 Mg Tab) 25 mg PO BID [facility] Stop: 07/19/21 08:59 Last Admin: 06/19/21 09:14 Dose: 25 mg Documented by: Tramadol HCl (Tramadol Hcl 50 Mg Tablet) 50 mg PO BID PRN PRN Reason: Pain Stop: 07/19/21 04:09 Triamcinolone Acetonide (Triamcinolone Acet 0.1% Cr 15 Gm Tube) 1 appln TOP BID PRN PRN Reason: Skin Irritation Stop: 07/19/21 04:09 Vitamin D (Cholecalciferol 1,000 Units 25 Mcg Tab) 1,000 units PO [facility] Stop: 07/19/21 08:59 Last Admin: 06/19/21 09:16 Dose: 1,000 units Documented by: Warfarin Sodium (Warfarin Sod 5 Mg Tab) 5 mg PO MoTuWeThFrSa@1600 [facility] Stop: 07/19/21 15:59 Last Admin: 06/19/21 16:42 Dose: 5 mg Documented by: Warfarin Sodium (Warfarin Sod 2.5 Mg Tab) 2.5 mg PO Amos@1600 [facility] Stop: 07/23/21 15:59
[2021-06-19] MEDS ORDERED: PRAVASTATIN SOD 40 MG TAB PO SCH (21:00)
[2021-06-19] MEDS ORDERED: ALFUZOSIN HCL 10 MG TAB PO SCH (21:00)
[2021-06-19] MEDS ORDERED: METOPROLOL SUCC 50MG EXT REL TAB PO SCH (21:00)
[2021-06-19] MEDS ORDERED: cefTRIAXone SODIUM 2,000 MG in DEXTROSE 5% 50 ML IV SCH (22:00)
[2021-06-20] MEDS: LEVOTHYROXINE SODIUM 88 MCG TABLET PO SCH (05:40)
[2021-06-20 07:59] LABS: Basophils # (auto) 0.03 K/uL (0-0.2); Basophils % (auto) 0.4 %; Eosinophils # (auto) 0.18 K/uL (0-0.5); Eosinophils % (auto) 2.2 %; Hematocrit (blood only) 44.6 % (42-52); Hemoglobin 15.6 g/dL (14.0-18.0); Immature Granulocytes # (auto) 0.02 K/uL (0.00-0.02); Immature Granulocytes % (auto) 0.2 %; Lymphocytes # (auto) 3.08 K/uL (1.2-3.4); Lymphocytes % (auto) 37.8 %; Mean Corpuscular Hemoglobin 33.9 pg (25-34); Mean Platelet Volume 11.5 fL (7.4-10.4); Monocytes # (auto) 0.85 K/uL (0.11-0.59); Monocytes % (auto) 10.4 %; Neutrophils # (auto) 3.99 K/uL (1.4-6.5); Platelet Count 169 K/uL (130-400); RDW Coefficient of Variation 15.3 % (11.5-14.5); RDW Standard Deviation 54.2 fL (36.4-46.3); White Blood Count 8.15 K/uL (4.8-10.8)
[2021-06-20 08:12] LABS: INR 1.6 (0.9-1.1); Prothrombin Time 15.3 Seconds (9.0-12.0)
[2021-06-20 09:00] LABS: BUN Creatinine Ratio 21.5 (10-20); Calcium 9.2 mg/dl (8.5-10.1); Creatinine Clr Calc Pharmacy 72.6 ml/min; Est GFR (African American) 75.6 ml/min; Est GFR (Non-African American) 65.2 ml/min; Magnesium 2.2 mg/dl (1.8-2.4); Potassium 3.5 mmol/L (3.5-5.1)
[2021-06-20] MEDS: INSULIN ASPART 100 UNITS/ML 3 ML PEN SC SCH ×2 (09:20→13:14)
[2021-06-20] MEDS: METOPROLOL SUCC 50MG EXT REL TAB PO SCH (09:21)
[2021-06-20] MEDS: *FENOFIBRATE*ORDER AWAITING ACTION SCH (09:21)
[2021-06-20] MEDS: LOSARTAN POTASSIUM 25 MG TAB PO SCH (09:22)
[2021-06-20] MEDS: DOCUSATE SODIUM 100 MG CAP PO SCH (09:22)
[2021-06-20] MEDS: FUROSEMIDE 80 MG TAB PO SCH (09:22)
[2021-06-20] MEDS: SPIRONOLACTONE 25 MG TAB PO SCH (09:22)
[2021-06-20] MEDS: POTASSIUM CHLORIDE CRTAB 20 MEQ TABCR PO SCH (09:23)
[2021-06-20] MEDS: allopurinoL 300 MG TAB PO SCH (09:23)
[2021-06-20] MEDS: CHOLECALCIFEROL 1,000 UNITS 25 MCG TAB PO SCH (09:23)
[2021-06-20] MEDS: ASPIRIN 81 MG CHEW PO SCH (09:23)
[2021-06-20] MEDS: GABAPENTIN 100 MG CAP PO SCH (09:23)
[2021-06-20] MEDS: COLCHICINE 0.6 MG TAB PO SCH (09:23)
[2021-06-20] MEDS: PANTOprazole 40 MG TAB PO SCH (09:23)
[2021-06-20] MEDS: MULTIVITAMIN TAB PO SCH (09:24)
[2021-06-20] MEDS: DIGOXIN 0.25 MG TAB PO SCH (09:24)
--- NOTE | 2021-06-20 16:20 | Communication Note ---
Date of Service: June 20, 2021 By CMS guidelines, a determination that the admission or continued stay is not medically necessary has been made by a member of the UR committee and emily palacios for this hospital stay, therefore a Code 44 will be completed and the Inpatient admission will be changed to outpatient.
--- NOTE | 2021-06-20 16:30 | Communication Note ---
Date of Service: June 20, 2021 By CMS guidelines, a determination that the admission or continued stay is not medically necessary has been made by a member of the UR committee and a agustina palacios for this hospital stay, therefore a Code 44 will be completed and the Inpatient admission will be changed to outpatient. Joaquin Laurent MD Member, Utilization Review Committee
[2021-06-20] MEDS: WARFARIN SOD 5 MG TAB PO SCH (16:47)
--- NOTE | 2021-06-20 16:47 | Discharge Summary ---
Date of Service June 20, 2021 Admission HPI Per Admitting Provider HISTORY OF PRESENT ILLNESS: This is an 80-year-old male with past medical history significant for type 2 diabetes, hyperlipidemia, hypothyroidism, obstructive sleep apnea, cardiomyopathy, permanent atrial fibrillation, hypertension, tachycardia-induced cardiomyopathy, CAD, obesity, GERD, gout arthropathy, venous stasis dermatitis, secondary polycythemia, lives at home with his was brought in because of confusion. is in the room. As per the , the patient was staring today and seemed confused. When this happened before, he had an infection, so he was brought in here and found to have UTI. The patient is currently alert and awake and somewhat hard of hearing. Most of the history was gotten from the and whenever the patient was asked questions, he answered appropriately. There was no complaint of headache or chest pain. No nausea, vomiting. No abdominal pain. He had episodes of diarrhea today and it was somewhat dark color. Normal bladder movements. No complaints of any burning micturition. No fevers, no blurred visions, no runny nose, no sore throat, no cough. Appetite is okay. Currently resting comfortably and hemodynamically stable. Admission Exam Per Admitting Provider PHYSICAL EXAMINATION: GENERAL: The patient is obese, not in acute distress. VITAL SIGNS: Temperature 36.3, pulse 94, respiratory rate 19, blood pressure 105/60, oxygen 96% on room air. HEENT: Pupils equal, round and reactive to light. Oral mucosa moist. NECK: No JVD. No neck masses. CARDIOVASCULAR: S1 and S2 heard. Regular rate and rhythm. No murmur, no gallop. RESPIRATORY SYSTEM: Normal AP diameter. No accessory muscle use. No wheezing, no crackles. ABDOMEN: Soft, bowel sounds present, nontender, no distention. CENTRAL NERVOUS SYSTEM: Alert and awake. Speech is clear. No facial droop. Obeys simple commands, answers simple questions. Moves extremities. EXTREMITIES: Chronic skin changes seen. No obvious erythema seen. Principal Diagnosis confusion, diarrhea Discharge Exam Gen: WD/WN, NAD, sitting in bedside chair, A&Ox3 HEENT: Hard of hearing, normocephalic, atraumatic, conjunctivae moist, sclerae anicteric, mucous membranes moist Lung: Clear to Auscultation bilaterally, no wheezes/rales/rhonchi Heart: Regular rate, regular rhythm, no murmurs, rubs, or gallops Abdomen: Soft, NT, ND +BS x 4 Extremities: trace edema, chronic venous changes bilaterally Skin: Warm, no rash Discharge Data Allergies Allergy/AdvReac Type Severity Reaction Status Date / Time No Known Allergies Allergy Verified 06/18/21 19:11 Consultations 06/18/21 22:36 ED Decision to Admit Stat Ordered Studies 06/18/21 19:03 CT head/brain wo con Stat Hospital Course (1) Urinary tract infection: (2) Altered mental status: (3) Acute hyponatremia: (4) Atrial fibrillation: (5) HTN (hypertension): (6) Hypothyroidism: (7) Diabetes mellitus, type 2: (8) Systolic CHF, chronic: This is an 80-year-old male with past medical history significant for type 2 diabetes, hyperlipidemia, hypothyroidism, obstructive sleep apnea, cardiomyopathy, permanent atrial fibrillation, hypertension, tachycardia-induced cardiomyopathy, CAD, obesity, GERD, gout arthropathy, venous stasis dermatitis, secondary polycythemia, lives at home with his was brought in because ofconfusion and diarrhea. Patient's confusion has resolved and he is back to mentating baseline A&O x3. Diarrhea has also resolved. Initial concern for UTI and patient received IV ceftriaxone but urine culture did not show any growth, so no indication for continued antibiotics. Patient has good family support and will be discharged home with home health services. Instructed to continue Coumadin at normal dose with repeat INR within the week prior to appointment with Dr. Scherer. No medication changes needed. Patient asymptomatic and hemodynamically stable at time of discharge. Total Time Total Time Spent Total Time Spent (In Minutes): 35 Discharge Plan Discharge Items Patient Disposition: Home - Home Health Services Reason For Visit: CONFUSION, DIARRHEA Discharge Diagnosis: confusion, diarrhea Activity: Resume your previous activity Non-emergency contact: Primary Care Provider Call non-emergency contact if: you have any medication questions, your symptoms worsen and your pain is not controlled Follow-up/Referrals: Chico Scherer MD [Primary Care Provider] - (Date & Time 06/25/2021 12:20 PM Provider Chico Scherer MD Department Family Practice [facility] ) Diet: Low Sodium (2gm) Ambulatory Orders: Prothrombin Time INR (Routine) Timeframe: 1 Week Location: Determined by Patient Ordered By: Abbey Velez Attending Provider Instructions: Raymundo, You were admitted for confusion in the setting of diarrhea and urinary symptoms. Your mental status has returned to baseline and diarrhea has resolved. You were treated for a possible urinary tract infection with IV ceftriaxone but urine culture did not show any growth, so no indication for continued antibiotics. You will be discharged home with home health services. Please follow-up with PCP (appointment details below) and anticoagulation clinic for continued Coumadin management. RECOMMENDATIONS FOR FOLLOW-UP: Please follow up with Dr. Scherer on 06/25/2021 at 12:20 PM. OTHER INSTRUCTIONS: Seek medical attention if you have: * temperature above 101 * chest pain or trouble breathing * abdominal pain, nausea, vomiting * diarrhea, dark stools or bloody stools * any unanswered questions or concerns Call 911 if symptoms are severe. Please take good care of yourself. Call if you have any questions or problems. You can reach a [facility] hospitalist on duty at [facility] 24 hours a day by calling [phone]. Abbey Do PA-C [facility] Hospitalist Pending Studies at Discharge: No Stand-Alone Forms: My [facility], Smoking Cessation Medications and DC Order Prescriptions: Continued metolazone 2.5 mg tablet 2.5 mg PO 2XWK RF: 0 pravastatin 40 mg tablet 40 mg PO HS RF: 0 metoprolol succinate 50 mg tablet extended release 24 hr See Rx Instructions .ROUTE .COMPLEX RF: 0 digoxin 250 mcg tablet 250 mcg PO DAILY RF: 0 spironolactone 25 mg tablet 25 mg PO BID RF: 0 levothyroxine 88 mcg tablet 88 mcg PO QAM RF: 0 potassium chloride 20 mEq tablet,ER particles/crystals 10 meq PO 2XWK RF: 0 potassium chloride 20 mEq tablet,ER particles/crystals 40 meq PO QAM RF: 0 furosemide 80 mg tablet See Rx Instructions .ROUTE .COMPLEX RF: 0 warfarin 5 mg tablet See Rx Instructions .ROUTE .COMPLEX RF: 0 losartan 25 mg tablet 12.5 mg PO QAM RF: 0 omeprazole 20 mg capsule,delayed release(DR/EC) 20 mg PO QAM RF: 0 allopurinol 300 mg tablet 300 mg PO QAM RF: 0 gabapentin 100 mg capsule 100 mg PO BID RF: 0 colchicine 0.6 mg tablet 0.6 mg PO BID RF: 0 metformin 500 mg tablet extended release 24 hr See Rx Instructions .ROUTE .COMPLEX RF: 0 alfuzosin 10 mg tablet extended release 24 hr 10 mg PO QPM RF: 0 multivitamin Tablet 1 tab PO QAM RF: 0 tramadol 50 mg Tablet 50 mg PO BID PRN (Reason: Pain) RF: 0 docusate sodium 100 mg Capsule 100 mg PO QAM RF: 0 aspirin 81 mg Tablet,Chewable 81 mg PO QAM RF: 0 albuterol sulfate [ProAir HFA] 90 mcg/actuation Hfa Aerosol Inhaler 2 puff INHALATION QID PRN (Reason: Shortness Of Breath Or Wheezing) RF: 0 fluticasone propionate [Flonase Allergy Relief] 50 mcg/actuation Spra y,Suspension 2 spray INTRANASAL BID PRN (Reason: Nasal Congestion) RF: 0 cholecalciferol (vitamin D3) [Vitamin D3] 1,000 unit Tablet 1,000 units PO QAM RF: 0 triamcinolone acetonide 0.1 % Cream 1 applic TOPICAL BID PRN (Reason: Skin Irritation) RF: 0 fenofibrate 54 mg tablet 54 mg PO DAILY RF: 0 Discharge Orders: Discharge Order (Routine); Ordered 06/20/21 Ordered By: Abbey Taylor/Other Patient Handouts: Managing Type 2 Diabetes, Special Foot Care for Diabetes Admission Data Admit Date/Time: 06/19/21 01:17 Attending Provider: Kira Cordova Admit Provider: Celestino Birmingham Primary Care Provider: Chico Scherer Other Providers: Celestino Birmingham ; Abbey Do Other Interventions: Discharge Summary Assessment (RN) Last Done: 06/20/21 16:33
[2021-06-23] MEDS ORDERED: WARFARIN SOD 2.5 MG TAB PO SCH (16:00)
== END 2021-06-20 17:23 | disposition home health service (06) ==
LOC: ED 16:39 → 3N 06-19 01:17 → INTOOBSV 06-19 01:17 → SUATTDRO 06-19 01:17 → 3N 06-19 03:11

== ENCOUNTER 2021-12-05 21:53 | Inpatient (IN) ==
[2021-12-05 23:22] LABS: Basophils # (auto) 0.02 K/uL (0-0.2); Basophils % (auto) 0.4 %; Eosinophils # (auto) 0.01 K/uL (0-0.5); Eosinophils % (auto) 0.2 %; Hematocrit (blood only) 44.8 % (42-52); Hemoglobin 15.6 g/dL (14.0-18.0); Immature Granulocytes # (auto) 0.04 K/uL (0.00-0.02); Immature Granulocytes % (auto) 0.7 %; Lymphocytes # (auto) 1.37 K/uL (1.2-3.4); Lymphocytes % (auto) 24.2 %; Mean Corpuscular Hemoglobin 34.4 pg (25-34); Mean Corpuscular Hgb Conc 34.8 g/dL (32-36); Mean Corpuscular Volume 98.9 fL (80-100); Mean Platelet Volume 10.7 fL (7.4-10.4); Monocytes # (auto) 0.58 K/uL (0.11-0.59); Monocytes % (auto) 10.2 %; Neutrophils # (auto) 3.65 K/uL (1.4-6.5); Neutrophils % (auto) 64.3 %; Platelet Count 149 K/uL (130-400); RDW Coefficient of Variation 14.9 % (11.5-14.5); RDW Standard Deviation 54.3 fL (36.4-46.3); Red Blood Count 4.53 M/uL (4.7-6.1); White Blood Count 5.67 K/uL (4.8-10.8)
[2021-12-05 23:31] LABS: INR 2.7 (0.9-1.1); Prothrombin Time 26.9 Seconds (9.0-12.0)
[2021-12-05] MEDS ORDERED: SODIUM CHLORIDE 0.9% 1000ML 1,000 ML IV SCH (23:45)
[2021-12-05 23:46] LABS: Alanine Aminotransferase 31 U/L (7-52); Albumin Globulin Ratio 1.3 (0.9-2); Alkaline Phosphatase 51 U/L (34-104); Anion Gap 12 (3-11); Aspartate Aminotransferase 64 U/L (13-39); BUN Creatinine Ratio 23.5 (10-20); Bilirubin,Total 0.8 mg/dl (0.2-1.0); Blood Urea Nitrogen 38 mg/dl (6-23); Carbon Dioxide 24 mmol/L (21-32); Chloride 95 mmol/L (98-107); Est GFR (African American) 45.5 ml/min; Est GFR (Non-African American) 39.2 ml/min; Globulin 3.2 gm/dl (2.5-4.0); Glucose 161 mg/dl (70-99(Fasting)); Sodium 131 mmol/L (136-145); Total Protein 7.2 gm/dl (6.0-8.3)
[2021-12-05] MEDS ORDERED: cefTRIAXone SODIUM 2,000 MG/70 ML BAG IV STA (23:47)
--- NOTE | 2021-12-06 00:25 | Emergency Department Note ---
History of Present Illness General Chief complaint: Weakness Time Seen by Provider: 12/05/21 23:24 Source: patient Mode of arrival: ambulatory Limitations: no limitations History of Present Illness Provider complaint: weakness, recent uti Onset (ago): day(s) 4 Associated symptoms: + loss of appetite, + malaise and + weakness; no fever/chills or no nausea/vomiting Treatments prior to arrival: other This is an 81-year-old male presents emergency department with son at bedside due to concern for weakness, increased fatigue, and recent UTI. Patient states last weekend he began noticing increased urinary frequency. Denies any change in color or odor, denies any dysuria. Denies any company abdominal pain or back pain. Patient states Thursday he seemed more weak, decreased appetite, son confirms this also. Son states that family just left to go out of the area on Thursday. Son states patient had a similar episode more than a year ago with a urine infection and became very weak. No other recent change in medications. Another son took him to the doctor on Thursday where he was diagnosed with a UTI and started on Bactrim. They state Thursday he seems slightly better after starting the Bactrim however today seemed weaker again. Son states he has difficulty walking at baseline and does typically use a walker and this has made it worse and he is concerned he may fall. He states he also seems "less alert" and more tired compared to normal. Pt seen during a time of high acuity and national emergency pandemic while wearing PPE. Home Medications Medication Instructions Recorded Confirmed Type albuterol sulfate 90 mcg/actuation 2 puff INHALATION QID PRN 09/29/18 12/06/21 History aerosol inhaler (ProAir HFA) alfuzosin 10 mg tablet,extended 10 mg PO QPM 09/29/18 12/06/21 History release 24 hr allopurinol 300 mg tablet 300 mg PO QAM 09/29/18 12/06/21 History aspirin 81 mg chewable tablet 81 mg PO QAM 09/29/18 12/06/21 History cholecalciferol (vitamin D3) 25 1,000 units PO QAM 09/29/18 12/06/21 History mcg (1,000 unit) tablet (Vitamin D3) colchicine 0.6 mg tablet 0.6 mg PO BID 09/29/18 12/06/21 History digoxin 250 mcg (0.25 mg) tablet 250 mcg PO 3XWK 09/29/18 12/06/21 History docusate sodium 100 mg capsule 100 mg PO BID 09/29/18 12/06/21 History fluticasone propionate 50 2 spray INTRANASAL BID PRN 09/29/18 12/06/21 History mcg/actuation nasal spray,suspension (Flonase Allergy Relief) furosemide 80 mg tablet 80 mg PO QAM 09/29/18 12/06/21 History gabapentin 100 mg capsule 200 mg PO AMPM 09/29/18 12/06/21 History levothyroxine 88 mcg tablet 88 mcg PO QAM 09/29/18 12/06/21 History losartan 25 mg tablet 12.5 mg PO QAM 09/29/18 12/06/21 History metformin 500 mg tablet,extended 500 mg PO QAM 09/29/18 12/06/21 History release 24 hr metolazone 2.5 mg tablet 2.5 mg PO 2XWK 09/29/18 12/06/21 History metoprolol succinate 50 mg 150 mg PO QAM 09/29/18 12/06/21 History tablet,extended release 24 hr multivitamin 1 tab PO QAM 09/29/18 12/06/21 History omeprazole 20 mg capsule,delayed 20 mg PO QAM 09/29/18 12/06/21 History release potassium chloride 20 mEq 20 meq PO DAILY 09/29/18 12/06/21 History tablet,extended release(part/cryst) pravastatin 40 mg tablet 40 mg PO HS 09/29/18 12/06/21 History spironolactone 25 mg tablet 25 mg PO BID 09/29/18 12/06/21 History tramadol 50 mg tablet 50 mg PO BID 09/29/18 12/06/21 History warfarin 5 mg tablet 5 mg PO 4XWK 09/29/18 12/06/21 History fenofibrate 54 mg tablet 54 mg PO DAILY 06/18/21 12/06/21 History triamcinolone acetonide 0.1 % 1 applic TOPICAL BID PRN 06/18/21 12/06/21 History topical cream cefdinir 300 mg capsule 300 mg PO BID 7 Days #14 cap 12/06/21 Rx furosemide 80 mg tablet 40 mg PO QPM 12/06/21 12/06/21 History lactobacillus combination no.4 3 3,000 mmu cells PO DAILY 7 Days #7 12/06/21 Rx billion cell capsule (Probiotic) cap lidocaine 5 % topical patch 1 patch TOPICAL DAILY 12/06/21 12/06/21 History metformin 500 mg tablet,extended 1,000 mg PO QPM 12/06/21 12/06/21 History release 24 hr metoprolol succinate 50 mg 100 mg PO QPM 12/06/21 12/06/21 History tablet,extended release 24 hr mupirocin 2 % topical ointment 1 applic TOPICAL BID PRN 12/06/21 12/06/21 History potassium chloride 20 mEq 10 meq PO 2XWK 12/06/21 12/06/21 History tablet,extended release(part/cryst) warfarin 5 mg tablet 2.5 mg PO 3XWK 12/06/21 12/06/21 History Allergies Allergy/AdvReac Type Severity Reaction Status Date / Time No Known Allergies Allergy Verified 12/06/21 02:23 Past Med/Surg History Medical History Atrial fibrillation BPH (benign prostatic hyperplasia) Cellulitis Cellulitis of right leg Coronary artery disease "nonocclusive disease per cardiac cath 2009" Diabetes mellitus, type 2 Diabetic peripheral neuropathy associated with type 2 diabetes mellitus Dyslipidemia GERD (gastroesophageal reflux disease) Gout History of adenomatous polyp of colon History of basal cell carcinoma HLD (hyperlipidemia) HTN (hypertension) Hyponatremia Hypothyroidism Obstructive sleep apnea Pulmonary nodule "6 mm RLL; incidental finding on CT abdomen 03/07/16" Severe sepsis Systolic CHF, chronic UTI (urinary tract infection) Surgical History Status post appendectomy Status post inguinal hernia repair Family History Other Hypertension Stroke Social History Smoking Status: Former smoker Second Hand Exposure: No; Do You Dip or Chew Tobacco: No; Tobacco Cessation Education Requested by Patient: No Hx Alcohol Use: No Hx Substance Use: No Preferred Language: Swedish Communication Ability: Effective Chief Diversity Officer Required: No Beliefs That Will Affect Care: None marital status: Current Living Situation: Alone Current Living Situation Comment: Son helps take care of him How many Children do You have: 6 Other Information That Helps Us Care for You: No Feels Safe at Home: Yes Safety Concerns: Feels Safe At This Time Assistive Devices: Cane, CPAP, Walker and Wheelchair Review of Systems A total of 10 systems reviewed and were otherwise negative All systems reviewed & are unremarkable except as noted in HPI & below Physical Exam Vital Signs Vital Signs - 24 hr 12/05/21 22:01 12/05/21 22:08 12/05/21 22:40 Temperature Source Oral Pulse Rate 90 Pulse Rate [Right Finger] Respiratory Rate 16 Respiratory Depth Normal Normal Blood Pressure 115/68 Blood Pressure [Right Arm] Blood Pressure Mean 83 Blood Pressure Mean [Right Arm] Pulse Oximetry 97 96 96 Oxygen Delivery Method Room Air Room Air Room Air Sepsis Recent Fever Within 48 Hours No Sepsis New/Unexplained Change in Mental Status N/A Sepsis Action Taken by Nursing No Action Required 12/06/21 00:00 12/06/21 02:00 Temperature Source Pulse Rate Pulse Rate [Right Finger] 88 83 Respiratory Rate 18 16 Respiratory Depth Blood Pressure Blood Pressure [Right Arm] 125/78 115/68 Blood Pressure Mean Blood Pressure Mean [Right Arm] 93 83 Pulse Oximetry 95 98 Oxygen Delivery Method Sepsis Recent Fever Within 48 Hours Sepsis New/Unexplained Change in Mental Status Sepsis Action Taken by Nursing GENERAL: alert, well appearing, well nourished, no distress, non-toxic, BMI>35 EYE EXAM: normal conjunctiva, PERRL and EOM's grossly intact OROPHARYNX: no exudate, no erythema, lips, buccal mucosa, and tongue normal and mucous membranes are moist NECK: supple, no nuchal rigidity, no adenopathy, non-tender LUNGS: Clear to auscultation. Normal chest wall mechanics, no w/r/r HEART: no murmurs, S1 normal and S2 normal ABDOMEN: abdomen soft, non-tender, normo-active bowel sounds, no masses, no rebound or guarding. BACK: Back is symmetrical on inspection and there is no deformity, no midline tenderness, no CVA tenderness. SKIN: no rashes and no bruising UPPER EXTREMITIES: upper extremities are grossly normal. FROM, nml pulses b/l. LOWER EXTREMITIES: No pitting edema. FROM, nml pulses b/l. NEURO EXAM: Normal sensorium, cranial nerves II-XII grossly intact, normal speech but slow to respond, no gross weakness of arms, no gross weakness of legs. Gross sensation intact. Course Course 0032: Records obtained from visit earlier this week. Culture did appear pansensitive. 0210: Discussed with Dr. Coulter. Administered Medications Discontinued Medications Acetaminophen (Acetaminophen 325 Mg Tab) 650 mg PO NOW STA Stop: 12/06/21 06:02 Last Admin: 12/06/21 06:38 Dose: 650 mg Documented by: [id number] Alfuzosin HCl (Alfuzosin Hcl 10 Mg Tab) 10 mg PO DAILY@1630 [facility] Stop: 01/05/22 16:29 Last Admin: 12/06/21 17:11 Dose: 10 mg Documented by: [id number] Allopurinol (Allopurinol 300 Mg Tab) 150 mg PO QAM [facility] Stop: 01/05/22 08:59 Last Admin: 12/06/21 08:29 Dose: 150 mg Documented by: [id number] Aspirin (Aspirin 81 Mg Chew) 81 mg PO QAM [facility] Stop: 01/05/22 08:59 Last Admin: 12/06/21 08:29 Dose: 81 mg Documented by: [id number] Colchicine (Colchicine 0.6 Mg Tab) 0.6 mg PO BID [facility] Stop: 01/05/22 08:59 Last Admin: 12/06/21 08:29 Dose: 0.6 mg Documented by: [id number] Digoxin (Digoxin 0.25 Mg Tab) 0.25 mg PO NOW ONE Stop: 12/06/21 11:01 Last Admin: 12/06/21 11:49 Dose: 0.25 mg Documented by: [id number] Docusate Sodium (Docusate Sodium 100 Mg Cap) 100 mg PO BID [facility] Stop: 01/05/22 08:59 Last Admin: 12/06/21 08:30 Dose: 100 mg Documented by: [id number] Fenofibrate (Fenofibrate Nanocrystallized 48 Mg Tablet) 48 mg PO DAILY [facility] Stop: 01/05/22 08:59 Last Admin: 12/06/21 08:30 Dose: 48 mg Documented by: [id number] Sodium Chloride (Nss 1000ml) 1,000 mls @ 125 mls/hr IV .Q8H [facility] Stop: 01/04/22 23:44 Last Infusion: 12/06/21 06:14 Dose: 0 mls/hr Documented by: [id number] Infusion: 12/06/21 05:53 Dose: 0 mls/hr Documented by: [id number] Admin: 12/06/21 00:17 Dose: 125 mls/hr Documented by: [id number] Ceftriaxone Sodium (Rocephin) 2,000 mg in 70 mls @ 140 mls/hr IV NOW STA Stop: 12/06/21 00:16 Last Infusion: 12/06/21 05:52 Dose: 0 mls/hr Documented by: [id number] Admin: 12/06/21 00:17 Dose: 140 mls/hr Documented by: [id number] Albumin Human (Albumin 25% 100 Ml) 25 gm in 100 mls @ 50 mls/hr IV ONE ONE Stop: 12/06/21 04:27 Last Infusion: 12/06/21 05:52 Dose: 0 mls/hr Documented by: [id number] Admin: 12/06/21 02:46 Dose: 50 mls/hr Documented by: [id number] Cefepime HCl 1,000 mg/ Syringe 11.3 mls @ 5.5 mls/min IV Q12H GALO; Protocol Stop: 12/16/21 06:59 Last Admin: 12/06/21 08:17 Dose: 5.5 mls/min Documented by: [id number] Albumin Human (Albumin 25%) 12.5 gm in 50 mls @ 50 mls/hr IV Q6H [facility] Stop: 12/09/21 11:59 Last Infusion: 12/06/21 13:31 Dose: 0 mls/hr Documented by: [id number] Admin: 12/06/21 12:31 Dose: 50 mls/hr Documented by: [id number] Albumin Human (Albumin 25% 100 Ml) 25 gm in 100 mls @ 50 mls/hr IV Q24H [facility] Stop: 12/09/21 07:44 Last Infusion: 12/06/21 10:18 Dose: 0 mls/hr Documented by: [id number] Admin: 12/06/21 08:18 Dose: 50 mls/hr Documented by: [id number] Magnesium Sulfate/Dextrose (Magnesium Sulfate / D5w) 1 gm in 100 mls @ 50 mls/hr IV ONE ONE Stop: 12/06/21 10:14 Last Infusion: 12/06/21 10:54 Dose: 0 mls/hr Documented by: [id number] Admin: 12/06/21 08:54 Dose: 50 mls/hr Documented by: [id number] Sodium Chloride (Nss 1000ml) 1,000 mls @ 75 mls/hr IV .[id number] [facility] Stop: 12/07/21 10:54 Last Infusion: 12/06/21 17:32 Dose: 0 mls/hr Documented by: [id number] Admin: 12/06/21 08:54 Dose: 75 mls/hr Documented by: [id number] Insulin Aspart (Insulin Aspart Per Unit) 0 units SC ACHS [facility] Stop: 01/05/22 04:40 Last Admin: 12/06/21 17:14 Dose: 1 units Documented by: [id number] Cosigned by: [id number] Admin: 12/06/21 12:30 Dose: 5 units Documented by: [id number] Cosigned by: [id number] Admin: 12/06/21 04:41 Dose: Not Given Documented by: [id number] Lactobacillus Acidophilus (Advanced Probiotic 1250 Mg Capsule) 2 cap PO DAILY [facility] Stop: 01/05/22 16:14 Last Admin: 12/06/21 17:10 Dose: 2 cap Documented by: [id number] Levothyroxine Sodium (Levothyroxine Sodium 88 Mcg Tablet) 88 mcg PO DAILYBB [facility] Stop: 01/05/22 06:29 Last Admin: 12/06/21 06:37 Dose: 88 mcg Documented by: [id number] Metoprolol Succinate (Metoprolol Succ 50mg Ext Rel Tab) 150 mg PO QAM [facility] Stop: 01/05/22 06:04 Last Admin: 12/06/21 06:37 Dose: 150 mg Documented by: [id number] Multivitamins (Multivitamin Tab) 1 tab PO QAM [facility] Stop: 01/05/22 08:59 Last Admin: 12/06/21 08:30 Dose: 1 tab Documented by: [id number] Pantoprazole Sodium (Pantoprazole 40 Mg Tab) 40 mg PO QAM [facility] Stop: 01/05/22 08:59 Last Admin: 12/06/21 08:30 Dose: 40 mg Documented by: [id number] Potassium Chloride (Potassium Chloride Crtab 20 Meq Tabcr) 40 meq PO NOW STA Stop: 12/06/21 08:03 Last Admin: 12/06/21 08:19 Dose: 40 meq Documented by: [id number] Warfarin Sodium (Warfarin Sod 2.5 Mg Tab) 2.5 mg PO TuThSa@1600 [facility] Stop: 01/05/22 16:29 Last Admin: 12/06/21 17:32 Dose: Not Given Documented by: [id number] Warfarin Sodium (Warfarin Sod 5 Mg Tab) 5 mg PO SuMoWeFr@1600 [facility] Stop: 01/05/22 16:29 Last Admin: 12/06/21 17:13 Dose: 5 mg Documented by: [id number] Medical Decision Making Differential Diagnosis Differential Diagnosis includes but is not limited to dehydration, stroke, anemia, hypoglycemia, hyponatremia, hypernatremia, urinary tract infection, pneumonia, bronchitis, sepsis, gastroenteritis, additional abdominal pathology, metabolic abnormalities and infections. Medical Records Attestation: I reviewed the patient's medical records. Home Medications Current Medication List: was personally reviewed by me Laboratory Data Attestation: I reviewed the patient's lab results. Result diagrams: 12/06/21 06:42 12/06/21 06:42 Lab Results 12/05/21 12/05/21 12/05/21 Range/Units 23:08 23:08 23:08 WBC 5.67 (4.8-10.8) K/uL RBC 4.53 L (4.7-6.1) M/uL Hgb 15.6 (14.0-18.0) g/dL Hct 44.8 (42-52) % MCV 98.9 (80-100) fL MCH 34.4 H (25-34) pg MCHC 34.8 (32-36) g/dL RDW Std Deviation 54.3 H (36.4-46.3) fL RDW Coeff of Shilpi 14.9 H (11.5-14.5) % Plt Count 149 (130-400) K/uL MPV 10.7 H (7.4-10.4) fL Immature Gran % (Auto) 0.7 % Neut % (Auto) 64.3 % Lymph % (Auto) 24.2 % [place] % (Auto) 10.2 % Eos % (Auto) 0.2 % Baso % (Auto) 0.4 % Neut # (Auto) 3.65 (1.4-6.5) K/uL Lymph # (Auto) 1.37 (1.2-3.4) K/uL [place] # (Auto) 0.58 (0.11-0.59) K/uL Eos # (Auto) 0.01 (0-0.5) K/uL Baso # (Auto) 0.02 (0-0.2) K/uL Immature Gran # (Auto) 0.04 H (0.00-0.02) K/uL PT (9.0-12.0) Seconds INR (0.9-1.1) Sodium 131 L (136-145) mmol/L Potassium 4.0 (3.5-5.1) mmol/L Chloride 95 L (98-107) mmol/L Carbon Dioxide 24 (21-32) mmol/L Anion Gap 12 H (3-11) BUN 38 H (6-23) mg/dl Creatinine 1.62 H (0.6-1.4) mg/dl Est Cr Clr Drug Dosing Not Reportable Est GFR ( Amer) 45.5 ml/min Est GFR (Non-Af Amer) 39.2 ml/min BUN/Creatinine Ratio 23.5 H (10-20) Glucose 161 H (70-99(Fasting)) mg/dl Calcium 9.0 (8.5-10.1) mg/dl Magnesium 2.0 (1.7-2.4) mg/dl Total Bilirubin 0.8 (0.2-1.0) mg/dl AST 64 H (13-39) U/L ALT 31 (7-52) U/L Alkaline Phosphatase 51 (34-104) U/L Troponin I High Sens 9.0 (0-20) pg/ml Total Protein 7.2 (6.0-8.3) gm/dl Albumin 4.0 (3.4-5.0) gm/dl Globulin 3.2 (2.5-4.0) gm/dl Albumin/Globulin Ratio 1.3 (0.9-2) Procalcitonin (0-0.5) ng/ml TSH 1.335 (0.300-4.500) uIu/ml Urine Color Urine Appearance (Clear) Urine pH (4.5-7.5) Ur Specific [place] (1.000-1.030) Urine Protein (Negative) Urine Glucose (UA) (Negative) Urine Ketones (Negative) Urine Blood (Negative) Urine Nitrite (Negative) Urine Bilirubin (Negative) Urine Urobilinogen (Negative) Ur Leukocyte Esterase (Negative) Urine WBC (Auto) (0-5) /hpf Urine RBC (Auto) (0-4) /hpf U Hyaline Cast (Auto) (0-5) /lpf U Epithel Cells (Auto) (0-5) /lpf Urine Bacteria (Auto) (Negative) SARS-CoV-2, RNA, NAAT (NEGATIVE) 12/05/21 12/05/21 12/06/21 Range/Units 23:08 23:08 00:23 WBC (4.8-10.8) K/uL RBC (4.7-6.1) M/uL Hgb (14.0-18.0) g/dL Hct (42-52) % MCV (80-100) fL MCH (25-34) pg MCHC (32-36) g/dL RDW Std Deviation (36.4-46.3) fL RDW Coeff of Shilpi (11.5-14.5) % Plt Count (130-400) K/uL MPV (7.4-10.4) fL Immature Gran % (Auto) % Neut % (Auto) % Lymph % (Auto) % [place] % (Auto) % Eos % (Auto) % Baso % (Auto) % Neut # (Auto) (1.4-6.5) K/uL Lymph # (Auto) (1.2-3.4) K/uL [place] # (Auto) (0.11-0.59) K/uL Eos # (Auto) (0-0.5) K/uL Baso # (Auto) (0-0.2) K/uL Immature Gran # (Auto) (0.00-0.02) K/uL PT 26.9 H (9.0-12.0) Seconds INR 2.7 H (0.9-1.1) Sodium (136-145) mmol/L Potassium (3.5-5.1) mmol/L Chloride (98-107) mmol/L Carbon Dioxide (21-32) mmol/L Anion Gap (3-11) BUN (6-23) mg/dl Creatinine (0.6-1.4) mg/dl Est Cr Clr Drug Dosing Est GFR ( Amer) ml/min Est GFR (Non-Af Amer) ml/min BUN/Creatinine Ratio (10-20) Glucose (70-99(Fasting)) mg/dl Calcium (8.5-10.1) mg/dl Magnesium (1.7-2.4) mg/dl Total Bilirubin (0.2-1.0) mg/dl AST (13-39) U/L ALT (7-52) U/L Alkaline Phosphatase (34-104) U/L Troponin I High Sens (0-20) pg/ml Total Protein (6.0-8.3) gm/dl Albumin (3.4-5.0) gm/dl Globulin (2.5-4.0) gm/dl Albumin/Globulin Ratio (0.9-2) Procalcitonin 0.35 (0-0.5) ng/ml TSH (0.300-4.500) uIu/ml Urine Color Yellow Urine Appearance Clear (Clear) Urine pH 6.5 (4.5-7.5) Ur Specific [place] 1.016 (1.000-1.030) Urine Protein Negative (Negative) Urine Glucose (UA) Negative (Negative) Urine Ketones Negative (Negative) Urine Blood Negative (Negative) Urine Nitrite Negative (Negative) Urine Bilirubin Negative (Negative) Urine Urobilinogen Negative (Negative) Ur Leukocyte Esterase 1+ H (Negative) Urine WBC (Auto) 5-10 H (0-5) /hpf Urine RBC (Auto) 0-4 (0-4) /hpf U Hyaline Cast (Auto) 1-5 (0-5) /lpf U Epithel Cells (Auto) 10-20 H (0-5) /lpf Urine Bacteria (Auto) Negative (Negative) SARS-CoV-2, RNA, NAAT (NEGATIVE) 12/06/21 Range/Units 02:19 WBC (4.8-10.8) K/uL RBC (4.7-6.1) M/uL Hgb (14.0-18.0) g/dL Hct (42-52) % MCV (80-100) fL MCH (25-34) pg MCHC (32-36) g/dL RDW Std Deviation (36.4-46.3) fL RDW Coeff of Shilpi (11.5-14.5) % Plt Count (130-400) K/uL MPV (7.4-10.4) fL Immature Gran % (Auto) % Neut % (Auto) % Lymph % (Auto) % [place] % (Auto) % Eos % (Auto) % Baso % (Auto) % Neut # (Auto) (1.4-6.5) K/uL Lymph # (Auto) (1.2-3.4) K/uL [place] # (Auto) (0.11-0.59) K/uL Eos # (Auto) (0-0.5) K/uL Baso # (Auto) (0-0.2) K/uL Immature Gran # (Auto) (0.00-0.02) K/uL PT (9.0-12.0) Seconds INR (0.9-1.1) Sodium (136-145) mmol/L Potassium (3.5-5.1) mmol/L Chloride (98-107) mmol/L Carbon Dioxide (21-32) mmol/L Anion Gap (3-11) BUN (6-23) mg/dl Creatinine (0.6-1.4) mg/dl Est Cr Clr Drug Dosing Est GFR ( Amer) ml/min Est GFR (Non-Af Amer) ml/min BUN/Creatinine Ratio (10-20) Glucose (70-99(Fasting)) mg/dl Calcium (8.5-10.1) mg/dl Magnesium (1.7-2.4) mg/dl Total Bilirubin (0.2-1.0) mg/dl AST (13-39) U/L ALT (7-52) U/L Alkaline Phosphatase (34-104) U/L Troponin I High Sens (0-20) pg/ml Total Protein (6.0-8.3) gm/dl Albumin (3.4-5.0) gm/dl Globulin (2.5-4.0) gm/dl Albumin/Globulin Ratio (0.9-2) Procalcitonin (0-0.5) ng/ml TSH (0.300-4.500) uIu/ml Urine Color Urine Appearance (Clear) Urine pH (4.5-7.5) Ur Specific [place] (1.000-1.030) Urine Protein (Negative) Urine Glucose (UA) (Negative) Urine Ketones (Negative) Urine Blood (Negative) Urine Nitrite (Negative) Urine Bilirubin (Negative) Urine Urobilinogen (Negative) Ur Leukocyte Esterase (Negative) Urine WBC (Auto) (0-5) /hpf Urine RBC (Auto) (0-4) /hpf U Hyaline Cast (Auto) (0-5) /lpf U Epithel Cells (Auto) (0-5) /lpf Urine Bacteria (Auto) (Negative) SARS-CoV-2, RNA, NAAT NEGATIVE (NEGATIVE) Imaging Data Radiologist's Impression: Head CT 12/06/21 03:24 CT SCAN OF THE BRAIN WITHOUT IV CONTRAST CLINICAL HISTORY: Change in mental status. COMPARISON STUDY: CT of the brain dated 06/18/2021. TECHNIQUE: Unenhanced axial CT scan of the brain is performed from the vertex to the skull base. A dose lowering technique was utilized adhering to the principles of ALARA. CT DOSE: 821.00 mGycm FINDINGS: Brain parenchyma: There are age-related involutional changes noting mild subcortical and periventricular microangiopathic change. There is no hemorrhage, mass effect, or evidence of acute territorial ischemia by CT criteria. [place]- white matter differentiation is preserved. No extra-axial fluid collection is seen. Ventricles, sulci, cisterns: Prominent secondary to involutional change. Intracranial vasculature: There is atherosclerotic calcification of the cavernous carotid and vertebral arteries. Calvarium: Unremarkable. Sinuses and mastoids: The visualized paranasal sinuses are clear. The mastoid air cells are well pneumatized. Orbits: The bony orbits are grossly intact. There are bilateral ocular lens imp lants. IMPRESSION: There is no hemorrhage, mass effect, or evidence of acute territorial ischemia by CT criteria. ACT 112: Negative or not required by law. Electronically signed by: Everette Tomas M.D. 12/06/2021 7:05 AM ECG Data Attestation: I personally reviewed and interpreted this ECG as follows: Indication: + weakness Rate (beats per minute): 99 Rhythm: + atrial fibrillation ECG Intervals/blocks: + IVCD and + Normal QT ECG [place]: + Normal ECG ST segments: + Nonspecific ST abnormalities MDM Narrative This is an 81-year-old male presents for generalized weakness, increased difficulty walking, recent diagnosis of outpatient UTI. Patient was started on Bactrim as an outpatient, we were eventually able to obtain results of the urine culture which did show to be pansensitive. Patient found to have acute kidney injury. Hyponatremia also noted although patient has had that previously and this appears stable. Patient had no accompanying back pain or abdominal pain, I do not suspect concurrent ureterolithiasis or other obstructive process. I suspect patient with infection contributing to confusion and weakness and MASON secondary to initiation of Bactrim as an outpatient and also a contributing factor. Patient was given IV Rocephin here as a precaution in case discussed with hospitalist for additional evaluation and management. Patient and son at [facility] verbalized understanding all results and were in agreement with plan. An order was placed for continuous cardiac monitoring. The monitor shows a rate of _86_ with _normal sinus__ rhythm. Impression & Plan Generalized weakness, MASON (acute kidney injury), Adverse drug reaction, Acute UTI (urinary tract infection), Hyponatremia Discharge Plan Visit Data Chief Complaint: Weakness ED Provider: Angelica Davey Discharge Problem: Generalized weakness, MASON (acute kidney injury), Adverse drug reaction, Acute UTI (urinary tract infection), Hyponatremia Patient Disposition: Admitted As Inpatient Discharge Instructions Interventions: ED Discharge Assessment Last Done: 12/06/21 05:19 Discharge Problem: Adverse drug reaction Qualifiers: Encounter type: initial encounter Qualified Code(s): T50.905A - Adverse effect of unspecified drugs, medicaments and biological substances, initial encounter
[2021-12-06 00:41] LABS: Appearance Urine Clear (Clear); Bacteria Urine Automated Negative (Negative); Bilirubin Urine Negative (Negative); Blood Urine Negative (Negative); Color Urine Yellow; Glucose Urine UA Negative (Negative); Ketones Urine Negative (Negative); Leukocyte Esterase Urine 1+ (Negative); Nitrite Urine Negative (Negative); Protein Urine Negative (Negative); RBC Urine Automated 0-4 /hpf (0-4); Specific Gravity Urine 1.016 (1.000-1.030); Urobilinogen Urine Negative (Negative); pH Urine 6.5 (4.5-7.5)
[2021-12-06] MEDS ORDERED: ALBUMIN 25% 100 mL 25 GM/100 ML VIAL IV ONE (02:28)
--- NOTE | 2021-12-06 03:24 | History & Physical Report ---
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 fib on Coumadin, rate controlled, INR therapeutic hypertension, BP stable hyperlipidemia, on statin Rx Chronic hyponatremia DM2 on oral medications, well-controlled as of recent hemoglobin A1c of 6.21 October 2021 JOHN on CPAP, chronic polycythemia hypothyroidism, euthyroid as of today's TSH past tobacco abuse Medical telemetry CS, Cefepime Monitor creatinine response to IVF (IV albumin prepared to crystalloid given pulmonary congestion) Stop Bactrim Hold home diuretics, losartan until creatinine back to normal baseline Nephrology consult if without improvement Appropriate to hold home neuropsychotropic medications for now until patient mentation back to baseline ISS BG goal 1 10-1 40, carb count coverage PT OT eval DVT prophylaxis. Coumadin INR goal between 2 and 3 DNR as per patient's prior directives. Patient son requesting updates from providers. Mr. Fonseca Jr Smitha., contact #[phone]. Text document was generated using [employer] voice recognition software. It may contain grammatical or spelling errors. Kindly contact undersigned for clarification of any documentation item in question. History of Present Illness Chief Complaint: I did not want to come as per patient Weakness, confusion as per family Primary Care Provider: Chico Scherer MD History obtained from patient, family, and records. Patient is a fair historian. Medical history significant for chronic systolic heart failure secondary to no nischemic cardiomyopathy EF 45 to 49%, TTE 2021, nonocclusive CAD/PVD, A. fib on Coumadin, hypertension, hyperlipidemia, DM2 on oral medications, JOHN on CPAP, chronic polycythemia, hypothyroidism, chronic hyponatremia, past tobacco abuse. Last confinement June 2021 for confusion and diarrhea symptoms. Last week, patient noted to have urinary urgency and burning symptoms. No fever, no chills. Patient seen at PCPs office 3 days ago. Bactrim initiated for UTI. Urine CS grew pansensitive E. coli 10 to 100,000 colonies per mL. Some improvement in symptoms initially as per family. Yesterday, patient noted to be weak and confused by family. Patient denies chest pain, SOB, headache symptoms Achy back pain complaints. Patient brought to the ER for evaluation. IV Ceftriaxone given for UTI. Medical History as above Surgical History : Cataract surgeries, hernia repair, tonsillectomy, appendectomy, foot/toe surgery Family History : Stroke, cirrhosis Personal/Social history : Past tobacco abuse, no EtOH intake, retired [employer] Allergies Allergy/AdvReac Type Severity Reaction Status Date / Time No Known Allergies Allergy Verified 12/06/21 02:23 Home Medications Medication Instructions Recorded Confirmed Type albuterol sulfate 90 mcg/actuation 2 puff INHALATION QID PRN 09/29/18 12/06/21 History aerosol inhaler (ProAir HFA) alfuzosin 10 mg tablet,extended 10 mg PO QPM 09/29/18 12/06/21 History release 24 hr allopurinol 300 mg tablet 300 mg PO QAM 09/29/18 12/06/21 History aspirin 81 mg chewable tablet 81 mg PO QAM 09/29/18 12/06/21 History cholecalciferol (vitamin D3) 25 1,000 units PO QAM 09/29/18 12/06/21 History mcg (1,000 unit) tablet (Vitamin D3) colchicine 0.6 mg tablet 0.6 mg PO BID 09/29/18 12/06/21 History digoxin 250 mcg (0.25 mg) tablet 250 mcg PO 3XWK 09/29/18 12/06/21 History docusate sodium 100 mg capsule 100 mg PO BID 09/29/18 12/06/21 History fluticasone propionate 50 2 spray INTRANASAL BID PRN 09/29/18 12/06/21 History mcg/actuation nasal spray,suspension (Flonase Allergy Relief) furosemide 80 mg tablet 80 mg PO QAM 09/29/18 12/06/21 History gabapentin 100 mg capsule 200 mg PO AMPM 09/29/18 12/06/21 History levothyroxine 88 mcg tablet 88 mcg PO QAM 09/29/18 12/06/21 History losartan 25 mg tablet 12.5 mg PO QAM 09/29/18 12/06/21 History metformin 500 mg tablet,extended 500 mg PO QAM 09/29/18 12/06/21 History release 24 hr metolazone 2.5 mg tablet 2.5 mg PO 2XWK 09/29/18 12/06/21 History metoprolol succinate 50 mg 150 mg PO QAM 09/29/18 12/06/21 History tablet,extended release 24 hr multivitamin 1 tab PO QAM 09/29/18 12/06/21 History omeprazole 20 mg capsule,delayed 20 mg PO QAM 09/29/18 12/06/21 History release potassium chloride 20 mEq 20 meq PO DAILY 09/29/18 12/06/21 History tablet,extended release(part/cryst) pravastatin 40 mg tablet 40 mg PO HS 09/29/18 12/06/21 History spironolactone 25 mg tablet 25 mg PO BID 09/29/18 12/06/21 History tramadol 50 mg tablet 50 mg PO BID 09/29/18 12/06/21 History warfarin 5 mg tablet 5 mg PO 4XWK 09/29/18 12/06/21 History fenofibrate 54 mg tablet 54 mg PO DAILY 06/18/21 12/06/21 History triamcinolone acetonide 0.1 % 1 applic TOPICAL BID PRN 06/18/21 12/06/21 History topical cream furosemide 80 mg tablet 40 mg PO QPM 12/06/21 12/06/21 History lidocaine 5 % topical patch 1 patch TOPICAL DAILY 12/06/21 12/06/21 History metformin 500 mg tablet,extended 1,000 mg PO QPM 12/06/21 12/06/21 History release 24 hr metoprolol succinate 50 mg 100 mg PO QPM 12/06/21 12/06/21 History tablet,extended release 24 hr mupirocin 2 % topical ointment 1 applic TOPICAL BID PRN 12/06/21 12/06/21 History potassium chloride 20 mEq 10 meq PO 2XWK 12/06/21 12/06/21 History tablet,extended release(part/cryst) warfarin 5 mg tablet 2.5 mg PO 3XWK 12/06/21 12/06/21 History Past Med/Surg History Medical History Atrial fibrillation BPH (benign prostatic hyperplasia) Cellulitis Cellulitis of right leg Coronary artery disease "nonocclusive disease per cardiac cath 2009" Diabetes mellitus, type 2 Diabetic peripheral neuropathy associated with type 2 diabetes mellitus Dyslipidemia GERD (gastroesophageal reflux disease) Gout History of adenomatous polyp of colon History of basal cell carcinoma HLD (hyperlipidemia) HTN (hypertension) Hyponatremia Hypothyroidism Obstructive sleep apnea Pulmonary nodule "6 mm RLL; incidental finding on CT abdomen 03/07/16" Severe sepsis Systolic CHF, chronic UTI (urinary tract infection) Surgical History Status post appendectomy Status post inguinal hernia repair Family History Other Hypertension Stroke Social History Smoking Status: Former smoker Second Hand Exposure: No; Do You Dip or Chew Tobacco: No; Tobacco Cessation Education Requested by Patient: No Hx Alcohol Use: No Hx Substance Use: No Preferred Language: Lithuanian Communication Ability: Effective Rn Hedis Required: No Beliefs That Will Affect Care: None Current Living Situation: Alone Current Living Situation Comment: Son helps take care of him Other Information That Helps Us Care for You: No Feels Safe at Home: Yes Safety Concerns: Feels Safe At This Time Assistive Devices: Glasses, Hearing Aid - Bilateral and Walker Review of Systems Review of Systems: Could not be reliably obtained secondary to confusion Physical Exam Physical Exam: GENERAL: Comfortable, lethargic, morbidly obese, hard of hearing, no respiratory distress SKIN: Normal color, warm HEENT: [place] palpebral conjunctivae, no ptosis, dry buccal mucosa NECK : Supple, short neck, no tenderness CHEST : Decreased breath sounds, no tenderness HEART : Irregular, no obvious murmurs ABDOMEN: distention, nontender BACK : Erythema noted over sacrum with skin breakdown EXTREMITIES : Erythematous bilateral LE swelling without tenderness (chronic as per patient/family no other conspicuous deformities noted NEUROLOGIC : Lethargic, no facial asymmetry, slightly hard of hearing, gait and stance not assessed Results & Data Results & Data ([facility]) Vital Signs (Past 12 Hours) Vital Signs Pulse Pulse Resp BP BP Pulse Ox 12/06/21 02:00 83 16 115/68 98 12/06/21 00:00 88 18 125/78 95 12/05/21 22:40 96 12/05/21 22:08 96 12/05/21 22:01 90 16 115/68 97 Laboratory Results Laboratory Results WBC 5.67 K/uL (4.8-10.8) 12/05/21 23:08 RBC 4.53 M/uL (4.7-6.1) L 12/05/21 23:08 Hgb 15.6 g/dL (14.0-18.0) 12/05/21 23:08 Hct 44.8 % (42-52) 12/05/21 23:08 MCV 98.9 fL (80-100) 12/05/21 23:08 MCH 34.4 pg (25-34) H 12/05/21 23:08 MCHC 34.8 g/dL (32-36) 12/05/21 23:08 RDW Std Deviation 54.3 fL (36.4-46.3) H 12/05/21 23:08 RDW Coeff of Shilpi 14.9 % (11.5-14.5) H 12/05/21 23:08 Plt Count 149 K/uL (130-400) 12/05/21 23:08 MPV 10.7 fL (7.4-10.4) H 12/05/21 23:08 Immature Gran % (Auto) 0.7 % 12/05/21 23:08 Neut % (Auto) 64.3 % 12/05/21 23:08 Lymph % (Auto) 24.2 % 12/05/21 23:08 [place] % (Auto) 10.2 % 12/05/21 23:08 Eos % (Auto) 0.2 % 12/05/21 23:08 Baso % (Auto) 0.4 % 12/05/21 23:08 Neut # (Auto) 3.65 K/uL (1.4-6.5) 12/05/21 23:08 Lymph # (Auto) 1.37 K/uL (1.2-3.4) 12/05/21 23:08 [place] # (Auto) 0.58 K/uL (0.11-0.59) 12/05/21 23:08 Eos # (Auto) 0.01 K/uL (0-0.5) 12/05/21 23:08 Baso # (Auto) 0.02 K/uL (0-0.2) 12/05/21 23:08 Immature Gran # (Auto) 0.04 K/uL (0.00-0.02) H 12/05/21 23:08 PT 26.9 Seconds (9.0-12.0) H 12/05/21 23:08 INR 2.7 (0.9-1.1) H 12/05/21 23:08 Sodium 131 mmol/L (136-145) L 12/05/21 23:08 Potassium 4.0 mmol/L (3.5-5.1) 12/05/21 23:08 Chloride 95 mmol/L (98-107) L 12/05/21 23:08 Carbon Dioxide 24 mmol/L (21-32) 12/05/21 23:08 Anion Gap 12 (3-11) H 12/05/21 23:08 BUN 38 mg/dl (6-23) H 12/05/21 23:08 Creatinine 1.62 mg/dl (0.6-1.4) H 12/05/21 23:08 Est Cr Clr Drug Dosing Not Reportable 12/05/21 23:08 Est GFR ( Amer) 45.5 ml/min 12/05/21 23:08 Est GFR (Non-Af Amer) 39.2 ml/min 12/05/21 23:08 BUN/Creatinine Ratio 23.5 (10-20) H 12/05/21 23:08 Glucose 161 mg/dl (70-99(Fasting)) H 12/05/21 23:08 Calcium 9.0 mg/dl (8.5-10.1) 12/05/21 23:08 Magnesium 2.0 mg/dl (1.7-2.4) 12/05/21 23:08 Total Bilirubin 0.8 mg/dl (0.2-1.0) 12/05/21 23:08 AST 64 U/L (13-39) H 12/05/21 23:08 ALT 31 U/L (7-52) 12/05/21 23:08 Alkaline Phosphatase 51 U/L (34-104) 12/05/21 23:08 Troponin I High Sens 9.0 pg/ml (0-20) 12/05/21 23:08 Total Protein 7.2 gm/dl (6.0-8.3) 12/05/21 23:08 Albumin 4.0 gm/dl (3.4-5.0) 12/05/21 23:08 Globulin 3.2 gm/dl (2.5-4.0) 12/05/21 23:08 Albumin/Globulin Ratio 1.3 (0.9-2) 12/05/21 23:08 Procalcitonin 0.35 ng/ml (0-0.5) 12/05/21 23:08 TSH 1.335 uIu/ml (0.300-4.500) 12/05/21 23:08 Urine Color Yellow 12/06/21 00:23 Urine Appearance Clear (Clear) 12/06/21 00:23 Urine pH 6.5 (4.5-7.5) 12/06/21 00:23 Ur Specific [place] 1.016 (1.000-1.030) 12/06/21 00:23 Urine Protein Negative (Negative) 12/06/21 00:23 Urine Glucose (UA) Negative (Negative) 12/06/21 00:23 Urine Ketones Negative (Negative) 12/06/21 00:23 Urine Blood Negative (Negative) 12/06/21 00:23 Urine Nitrite Negative (Negative) 12/06/21 00:23 Urine Bilirubin Negative (Negative) 12/06/21 00:23 Urine Urobilinogen Negative (Negative) 12/06/21 00:23 Ur Leukocyte Esterase 1+ (Negative) H 12/06/21 00:23 Urine WBC (Auto) 5-10 /hpf (0-5) H 12/06/21 00:23 Urine RBC (Auto) 0-4 /hpf (0-4) 12/06/21 00:23 U Hyaline Cast (Auto) 1-5 /lpf (0-5) 12/06/21 00:23 U Epithel Cells (Auto) 10-20 /lpf (0-5) H 12/06/21 00:23 Urine Bacteria (Auto) Negative (Negative) 12/06/21 00:23 SARS-CoV-2, RNA, NAAT NEGATIVE (NEGATIVE) 12/06/21 02:[address] head initial read: No intracranial hemorrhage, mass-effect or midline shift. There is no abnormal extra axial fluid collection. No evidence of acute infarct. Mild periventricular white matter hypodensities are most consistent with chronic microangiopathy. The visualized nasal sinuses and mastoid air cells are clear. No fracture. CT abdomen pelvis initial read: No definite acute intra-abdominal process. Hepatic steatosis. Persistent mild chronic bilateral perinephric stranding. No renal or ureteral calculus. No hydronephrosis. No calcified gallstones. No significant biliarydilatation. No bowel obstruction. The appendix is not identified. No evidence to suggest acute appendicitis. No evidence for acute diverticulitis or colitis. Prostatomegaly. Mild bladder wall thickening which mayreflect chronic outlet obstruction or cyst itis. Correlate with urinalysis. No ascites, abscess or free air. No acute osseous abnormality. Multilevel degenerative changes of the thoracolumbar spine. Moderate to severe L2-3, L3-4 and L4-5 central canal stenosis. Consider MRI correlation, as clinically indicated. Bilateral fat-containing inguinal hernias. Bilateral gynecomastia. Mild bibasilar atelectasis. Chest x-ray as per my interpretation congestion, cardiomegaly EKG as per my interpretation : Rate 100, A. fib, LAD, LAFB, T wave abnormalities lateral leads, PVCs
[2021-12-06] MEDS ORDERED: CARBOHYDRATES FOR HYPOGLYCEMIA PO PRN (04:41)
[2021-12-06] MEDS ORDERED: GLUCOSE 10 TABS/TUBE PO PRN (04:41)
[2021-12-06] MEDS: INSULIN ASPART PER UNIT SC SCH ×3 (04:41→17:14)
[2021-12-06] MEDS ORDERED: GLUCAGON FOR INJ 1 MG VIAL SQ PRN (04:41)
[2021-12-06] MEDS ORDERED: GLUCOSE 40% GEL 15 GM TUBE PO PRN (04:41)
[2021-12-06] MEDS ORDERED: PROMETHAZINE HCL 12.5 MG in SODIUM CHLORIDE 0.9% 50 ML IV PRN (04:41)
[2021-12-06] MEDS ORDERED: FLUTICASONE PROPIONATE NA SPR 16 GM BTL PRN (04:41)
[2021-12-06] MEDS ORDERED: DEXTROSE 50% 50 ML SYRINGE IV PRN (04:41)
[2021-12-06] MEDS ORDERED: ACETAMINOPHEN 325 MG TAB PO PRN (04:41)
[2021-12-06] MEDS ORDERED: ACETAMINOPHEN 325 MG TAB PO STA (06:01)
[2021-12-06] MEDS ORDERED: METOPROLOL SUCC 50MG EXT REL TAB PO SCH ×3 (06:05→21:00)
[2021-12-06] MEDS ORDERED: CEFEPIME 2,000 MG in SYRINGE 0 ML IV SCH (06:30)
[2021-12-06] MEDS ORDERED: LEVOTHYROXINE SODIUM 88 MCG TABLET PO SCH (06:30)
[2021-12-06 06:59] LABS: Basophils # (auto) 0.03 K/uL (0-0.2); Basophils % (auto) 0.6 %; Eosinophils # (auto) 0.01 K/uL (0-0.5); Eosinophils % (auto) 0.2 %; Hematocrit (blood only) 42.9 % (42-52); Hemoglobin 14.7 g/dL (14.0-18.0); Immature Granulocytes # (auto) 0.07 K/uL (0.00-0.02); Immature Granulocytes % (auto) 1.4 %; Lymphocytes # (auto) 1.24 K/uL (1.2-3.4); Lymphocytes % (auto) 25.2 %; Mean Corpuscular Hemoglobin 33.9 pg (25-34); Mean Corpuscular Hgb Conc 34.3 g/dL (32-36); Mean Corpuscular Volume 99.1 fL (80-100); Mean Platelet Volume 10.8 fL (7.4-10.4); Monocytes # (auto) 0.39 K/uL (0.11-0.59); Monocytes % (auto) 7.9 %; Neutrophils # (auto) 3.18 K/uL (1.4-6.5); Neutrophils % (auto) 64.7 %; Platelet Count 156 K/uL (130-400); RDW Coefficient of Variation 14.9 % (11.5-14.5); RDW Standard Deviation 54.5 fL (36.4-46.3); Red Blood Count 4.33 M/uL (4.7-6.1); White Blood Count 4.92 K/uL (4.8-10.8)
[2021-12-06] MEDS ORDERED: CEFEPIME 1,000 MG in SYRINGE 0 ML IV SCH (07:00)
--- NOTE | 2021-12-06 07:07 | CT Scan Report ---
CT SCAN OF THE BRAIN WITHOUT IV CONTRAST CLINICAL HISTORY: Change in mental status. COMPARISON STUDY: CT of the brain dated 06/18/2021. TECHNIQUE: Unenhanced axial CT scan of the brain is performed from the vertex to the skull base. A do se lowering technique was utilized adhering to the principles of ALARA. CT DOSE: 821.00 mGycm FINDINGS: Brain parenchyma: There are age-related involutional changes noting mild subcortical and periventric ular microangiopathic change. There is no hemorrhage, mass effect, or evidence of acute territorial i schemia by CT criteria. [place]-white matter differentiation is preserved. No extra-axial fluid collecti on is seen. Ventricles, sulci, cisterns: Prominent secondary to involutional change. Intracranial vasculature: There is atherosclerotic calcification of the cavernous carotid and vertebr al arteries. Calvarium: Unremarkable. Sinuses and mastoids: The visualized paranasal sinuses are clear. The mastoid air cells are well pneu matized. Orbits: The bony orbits are grossly intact. There are bilateral ocular lens implants. IMPRESSION: There is no hemorrhage, mass effect, or evidence of acute territorial ischemia by CT crit errizwan. ACT 112: Negative or not required by law. Electronically signed by: Everette Tomas M.D. 12/06/2021 7:05 AM
[2021-12-06 07:26] LABS: BUN Creatinine Ratio 22.1 (10-20); Creatinine Clr Calc Pharmacy 51.5 ml/min; Est GFR (Non-African American) 44.8 ml/min; Potassium 3.6 mmol/L (3.5-5.1)
[2021-12-06] MEDS ORDERED: ALBUMIN 25% 100 mL 25 GM/100 ML VIAL IV SCH (07:45)
--- NOTE | 2021-12-06 07:55 | XRay Report ---
XR chest 1V portable HISTORY: 81 years-old Male weakness acute weakness COMPARISON: Chest radiograph 06/18/2021 TECHNIQUE: Portable AP view of the chest FINDINGS: Cardiac silhouette is enlarged. Atherosclerosis of the aorta. No pneumothorax. Azygos lobe and fissur e. Pulmonary vascular congestion with mild interstitial coarsening. No large pleural effusion. Mild b ibasilar densities. Degenerative changes of the shoulders and spine. IMPRESSION: 1. Cardiomegaly with pulmonary vascular congestion. 2. Mild bibasilar atelectasis. ACT 112: Negative or not required by law. The above report was generated using voice recognition software. It may contain grammatical, syntax o r spelling errors. Electronically signed by: Isauro Olmedo M.D. 12/06/2021 7:54 AM
[2021-12-06] MEDS ORDERED: POTASSIUM CHLORIDE CRTAB 20 MEQ TABCR PO STA (08:02)
[2021-12-06] MEDS ORDERED: SODIUM CHLORIDE 0.9% 1000ML 1,000 ML IV SCH (08:15)
[2021-12-06] MEDS ORDERED: MAGNESIUM SULFATE / D5W 1 GM/100 ML BAG IV ONE (08:15)
--- NOTE | 2021-12-06 08:28 | CT Scan Report ---
ABDOMEN AND PELVIS CT WITHOUT CONTRAST CT DOSE: 2612.49 mGycm HISTORY: Acute low back and lower abdominal pain back pain TECHNIQUE: Multiaxial CT images of the abdomen and pelvis were performed without contrast. A dose lo wering technique was utilized adhering to the principles of ALARA. COMPARISON STUDY: CT 02/18/2018 FINDINGS: Motion degraded exam. Cardiomegaly. Limited exam secondary to patient body habitus, positioning, lack of contrast and left lateral abdomen partially excluded from the [id number]. Mild bibasilar atele ctasis. No pneumatosis or pneumoperitoneum. The unenhanced spleen is mildly enlarged. The liver is mildly enlarged with hepatic steatosis. Unrema rkable gallbladder and adrenal glands. Moderate pancreatic atrophy. Nonspecific mild bilateral perine phric stranding. Indeterminate 7 mm hypodensity is too small to characterize on image 217 series 5. T here is no urolith or hydronephrosis. Bladder wall thickening with partial distention. Calcifications along the anterior wall of the urinary bladder are unchanged. Small fat filled left inguinal hernia. Prostamegaly. Atherosclerosis of the aorta without aneurysm. No lymphadenopathy. Mild nonspecific wall thickening of the distal esophagus. There is no bowel obstruction or bowel wall thickening identified. Mild fecal retention. The appendix is not identified. Unremarkable soft tissu es with gynecomastia. Degenerative changes of the spine, pelvis and hips. IMPRESSION: 1. Limited exam as above. 2. No bowel obstruction or bowel wall thickening. 2. Hepatosplenomegaly with hepatic steatosis. 3. Small left inguinal hernia. 4. Additional findings as above. ACT 112: Negative or not required by law. The above report was generated using voice recognition software. It may contain grammatical, syntax o r spelling errors. Electronically signed by: Isauro Olmedo M.D. 12/06/2021 8:26 AM
[2021-12-06] MEDS ORDERED: PANTOprazole 40 MG TAB PO SCH (09:00)
[2021-12-06] MEDS ORDERED: COLCHICINE 0.6 MG TAB PO SCH (09:00)
[2021-12-06] MEDS ORDERED: DOCUSATE SODIUM 100 MG CAP PO SCH (09:00)
[2021-12-06] MEDS ORDERED: FENOFIBRATE NANOCRYSTALLIZED 48 MG TABLET PO SCH (09:00)
[2021-12-06] MEDS ORDERED: allopurinoL 300 MG TAB PO SCH (09:00)
[2021-12-06] MEDS ORDERED: MULTIVITAMIN TAB PO SCH (09:00)
[2021-12-06] MEDS ORDERED: ASPIRIN 81 MG CHEW PO SCH (09:00)
[2021-12-06] MEDS ORDERED: DIGOXIN 0.25 MG TAB PO ONE (11:00)
[2021-12-06] MEDS ORDERED: ALBUMIN 25% 12.5 GM/50 ML VIAL IV SCH (12:00)
--- NOTE | 2021-12-06 12:12 | Electrocardiogram Report ---
Test Reason : Blood Pressure : / mmHG Vent. Rate : 099 BPM Atrial Rate : 096 BPM P-R Int : 000 ms QRS Dur : 150 ms QT Int : 380 ms P-R-T Axes : 000 251 112 degrees QTc Int : 487 ms Poor data quality, interpretation may be adversely affected Atrial fibrillation with premature ventricular or aberrantly conducted complexes Non-specific intra-ventricular conduction block Possible Lateral infarct (cited on or before 18-JUN-2021) Abnormal ECG When compared with ECG of 18-JUN-2021 19:41, Questionable change in QRS duration Questionable change in initial forces of Anterolateral leads Confirmed by Otto Luevano ([id number]) on 12/06/2021 12:12:33 PM Referred By: REFERRED SELF Confirmed By:Richard Luevano
[2021-12-06] MEDS ORDERED: DIGOXIN 0.25 MG TAB PO SCH (16:00)
[2021-12-06] MEDS ORDERED: ADVANCED PROBIOTIC 1250 MG CAPSULE PO SCH (16:15)
--- NOTE | 2021-12-06 16:24 | Hospitalist Progress Note ---
Date of Service December 06, 2021 Assessment & Plan (1) Encephalopathy: (2) Urinary tract infection: Plan: 81-year-old male with PMH of HFrEF nonischemic CM [2021 TTE 09/18 45-49%], nonocclusive CAD/PVD, Afib on coumadin, HTN, HLD, DM2 on oral meds, JOHN on CPAP, chronic polycythemia, hypothyroidism, chronic hyponatremia and past tobacco abuse came in 12/06 with Acute UTI, weakness and confusion. He is being managed for the following: #. Likely metabolic encephalopathy #. 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 After Bactrim initiation, patient started becoming weak and confused. Encephalopathy likely secondary to complicated UTI versus MASON versus suicide Bactrim use versus all of combined Patient AO x4, encephalopathy resolved Bactrim stopped. Continue with Cefepime 12/06, add probiotic. #. MASON Baseline creatinine around 1, admitting creatinine 1.60 Likely secondary to illness versus recent Bactrim course, home diuretics contributory. Hold home diuretics, losartan until creatinine back to normal baseline Patient received IV fluid and albumin. Creatinine trending down, monitor BMP daily, avoid nephrotoxins. #. Other chronic medical conditions: HFrEF, ischemic cardiomyopathy, nonocclusive CAD/PVD, A. fib on Coumadin, HTN, HLD, chronic hyponatremia, DM2 on oral meds, JOHN on CPAP, chronic polycythemia, hypothyroidism, past tobacco abuse Resume/continue with home meds as and when appropriate. Patient is in A. fib with heart rate slightly on the higher side, likely secondary to infection/acute illness, continue to monitor over telemetry, if no improvement consider cardiology. Admitting CXR concerning for pulmonary vascular congestion, patient remains intravascularly dry, getting albumin, will DC IV fluid for now, continue to monitor. Resume home digoxin Sliding scale insulin. DVT prophylaxis: On Coumadin, INR goal 2-3. DNR Disposition: PT/OT to [facility] to assist with DC planning. Patient son Mr. Raymundo BoneJr., contact #[phone]. Admission and Anticipated Discharge Date Admission Date: December 06, 2021 Subjective Patient seen and examined at bedside as a follow-up of likely metabolic encephalopathy and MASON and complicated UTI/failed outpatient treatment. Patient was sitting up in chair, on room air, NAD, AOx4, no new acute events overnight. Patient was on clear liquid diet earlier, advance diet as tolerated, denies any fever/chills/sore throat/headache/dizziness/chest pain/palpitation/other review of symptoms. Over telemetry review, patient was in A. 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 Physical Exam Physical Exam: GENERAL: Alert and oriented x3. NAD, on RA. HEENT: No pallor, no icterus. Pupils equal, round and reactive to light. Oral mucosa moist. NECK: No JVD, no neck masses. HEART: S1 and S2 heard. Regular rate and rhythm. No murmur, no gallop. RESPIRATORY SYSTEM: Normal AP diameter. No accessory muscle use. No wheezing, no crackles. ABDOMEN: Soft, bowel sounds present, nontender, no distention. CENTRAL NERVOUS SYSTEM: No facial droop. Speech is clear. Obeys simple commands. Moves extremities. EXTREMITIES: Trace BLE edema, BLE chronic skin changes noted. Results & Data Results & Data ([facility]) Vital Signs (Past 12 Hours) Vital Signs Temp Pulse Pulse Resp BP Pulse Ox 12/06/21 11:49 91 H 12/06/21 08:19 37.5 C 104 H 18 108/54 L 95 12/06/21 07:00 92 H 12/06/21 05:17 37.7 C H 98 H 93 H 16 146/74 H 96 12/06/21 04:00 95 H 18 131/67 98
[2021-12-06] MEDS ORDERED: ALFUZOSIN HCL 10 MG TAB PO SCH (16:30)
[2021-12-06] MEDS ORDERED: WARFARIN SOD 2.5 MG TAB PO SCH (16:30)
[2021-12-06] MEDS ORDERED: WARFARIN SOD 5 MG TAB PO SCH (16:30)
--- NOTE | 2021-12-06 17:51 | Discharge Summary ---
Date of Service December 06, 2021 Admission HPI Per Admitting Provider History obtained from patient, family, and records. Patient is a fair historian. Medical history significant for chronic systolic heart failure secondary to nonischemic cardiomyopathy EF 45 to 49%, TTE 2021, nonocclusive CAD/PVD, A. fib on Coumadin, hypertension, hyperlipidemia, DM2 on oral medications, JOHN on CPAP, chronic polycythemia, hypothyroidism, chronic hyponatremia, past tobacco abuse. Last confinement June 2021 for confusion and diarrhea symptoms. Last week, patient noted to have urinary urgency and burning symptoms. No fever, no chills. Patient seen at PCPs office 3 days ago. Bactrim initiated for UTI. Urine CS grew pansensitive E. coli 10 to 100,000 colonies per mL. Some improvement in symptoms initially as per family. Yesterday, patient noted to be weak and confused by family. Patient denies chest pain, SOB, headache symptoms Achy back pain complaints. Patient brought to the ER for evaluation. IV Ceftriaxone given for UTI. Medical History as above Surgical History : Cataract surgeries, hernia repair, tonsillectomy, appendectomy, foot/toe surgery Family History : Stroke, cirrhosis Personal/Social history : Past tobacco abuse, no EtOH intake, retired [employer] Admission Exam Per Admitting Provider GENERAL: Comfortable, lethargic, morbidly obese, hard of hearing, no respiratory distress SKIN: Normal color, warm HEENT: [place] palpebral conjunctivae, no ptosis, dry buccal mucosa NECK : Supple, short neck, no tenderness CHEST : Decreased breath sounds, no tenderness HEART : Irregular, no obvious murmurs ABDOMEN: distention, nontender BACK : Erythema noted over sacrum with skin breakdown EXTREMITIES : Erythematous bilateral LE swelling without tenderness (chronic as per patient/family no other conspicuous deformities noted NEUROLOGIC : Lethargic, no facial asymmetry, slightly hard of hearing, gait and stance not assessed Principal Diagnosis Complicated UTI MASON A. fib Metabolic encephalopathy Discharge Exam GENERAL: Alert and oriented x3. NAD, on RA. HEENT: No pallor, no icterus. Pupils equal, round and reactive to light. Oral mucosa moist. NECK: No JVD, no neck masses. HEART: S1 and S2 heard. Regular rate and rhythm. No murmur, no gallop. RESPIRATORY SYSTEM: Normal AP diameter. No accessory muscle use. No wheezing, no crackles. ABDOMEN: Soft, bowel sounds present, nontender, no distention. CENTRAL NERVOUS SYSTEM: No facial droop. Speech is clear. Obeys simple commands. Moves extremities. EXTREMITIES: Trace BLE edema, BLE chronic skin changes noted. Discharge Data Allergies Allergy/AdvReac Type Severity Reaction Status Date / Time No Known Allergies Allergy Verified 12/06/21 02:23 Ordered Studies 12/06/21 03:24 CT abd pelvis wo con Urgent CT head/brain wo con Urgent Hospital Course (1) Encephalopathy: (2) Urinary tract infection: 81-year-old male with PMH of HFrEF nonischemic CM [2021 TTE 09/18 45-49%], nonocclusive CAD/PVD, Afib on coumadin, HTN, HLD, DM2 on oral meds, JOHN on CPAP, chronic polycythemia, hypothyroidism, chronic hyponatremia and past tobacco abuse came in 12/06 with Acute UTI, weakness and confusion. He was managed for the following: #. Likely metabolic encephalopathy #. Complicated UTI Patient having urinary urgency and burning symptoms 1 week ago [employer], was treated with Bactrim as an outpatient. After Bactrim initiation, patient started becoming weak and confused. Encephalopathy likely secondary to complicated UTI versus MASON versus suicide Bactrim use versus all of combined Patient AO x4, encephalopathy resolved Bactrim stopped. Continue with Cefepime 12/06, add probiotic. #. MASON Baseline creatinine around 1, admitting creatinine 1.60 Likely secondary to illness versus recent Bactrim course, home diuretics contributory. Hold home diuretics, losartan until creatinine back to normal baseline Patient received IV fluid and albumin. Creatinine trending down, monitor BMP daily, avoid nephrotoxins. #. Other chronic medical conditions: HFrEF, ischemic cardiomyopathy, nonocclusive CAD/PVD, A. fib on Coumadin, HTN, HLD, chronic hyponatremia, DM2 on oral meds, JOHN on CPAP, chronic polycythemia, hypothyroidism, past tobacco abuse Resume/continue with home meds as and when appropriate. Patient is in A. fib with heart rate slightly on the higher side, likely secondary to infection/acute illness, continue to monitor over telemetry, if no improvement consider cardiology. Admitting CXR concerning for pulmonary vascular congestion, patient remains intravascularly dry, getting albumin, will DC IV fluid for now, continue to monitor. Resume home digoxin Sliding scale insulin. DVT prophylaxis: On Coumadin, INR goal 2-3. DNR Disposition: PT/OT to [facility] to assist with DC planning. Patient son Mr. Raymundo Bone ., contact #[phone]. Patient was being managed as above, patient decided to go AMA, outpatient oral antibiotic and probiotic sent to pharmacy, updated patient's sons at bedside. Discussed with patient multiple times during the day about the possible adverse effect from leaving AMA given his current health condition. Updated patient's son and patient that he needs to hold his diuretics and losartan until seen by his primary care physician on Thursday and he needs to get blood work CBC and CMP repeated on Thursday. He needs further evaluation as soon as possible, Pt and his sons are made aware. Total Time Total Time Spent Total Time Spent (In Minutes): 60 Discharge Plan Discharge Items Patient Disposition: Against Medical Advice Reason For Visit: AMS, ARF Follow-up/Referrals: Chico Scherer MD [Primary Care Provider] - Stand-Alone Forms: [facility], [facility], Smoking Cessation Medications and DC Order Prescriptions: New cefdinir 300 mg capsule 300 mg PO BID 7 Days Qty: 14 RF: 0 Probiotic 3 billion cell capsule 3,000 mmu cells PO DAILY 7 Days Qty: 7 RF: 0 No Action metolazone 2.5 mg tablet 2.5 mg PO 2XWK RF: 0 pravastatin 40 mg tablet 40 mg PO HS RF: 0 metoprolol succinate 50 mg tablet extended release 24 hr 150 mg PO QAM RF: 0 digoxin 250 mcg tablet 250 mcg PO 3XWK RF: 0 spironolactone 25 mg tablet 25 mg PO BID RF: 0 levothyroxine 88 mcg tablet 88 mcg PO QAM RF: 0 potassium chloride 20 mEq tablet,ER particles/crystals 20 meq PO DAILY RF: 0 furosemide 80 mg tablet 80 mg PO QAM RF: 0 warfarin 5 mg tablet 5 mg PO 4XWK RF: 0 losartan 25 mg tablet 12.5 mg PO QAM RF: 0 omeprazole 20 mg capsule,delayed release(DR/EC) 20 mg PO QAM RF: 0 allopurinol 300 mg tablet 300 mg PO QAM RF: 0 gabapentin 100 mg capsule 200 mg PO AMPM RF: 0 colchicine 0.6 mg tablet 0.6 mg PO BID RF: 0 metformin 500 mg tablet extended release 24 hr 500 mg PO QAM RF: 0 alfuzosin 10 mg tablet extended release 24 hr 10 mg PO QPM RF: 0 multivitamin Tablet 1 tab PO QAM RF: 0 tramadol 50 mg Tablet 50 mg PO BID RF: 0 docusate sodium 100 mg Capsule 100 mg PO BID RF: 0 aspirin 81 mg Tablet,Chewable 81 mg PO QAM RF: 0 albuterol sulfate [ProAir HFA] 90 mcg/actuation Hfa Aerosol Inhaler 2 puff INHALATION QID PRN (Reason: Shortness Of Breath Or Wheezing) RF: 0 fluticasone propionate [Flonase Allergy Relief] 50 mcg/actuation [place],Suspension 2 spray INTRANASAL BID PRN (Reason: Nasal Congestion) RF: 0 cholecalciferol (vitamin D3) [Vitamin D3] 1,000 unit Tablet 1,000 units PO QAM RF: 0 triamcinolone acetonide 0.1 % Cream 1 applic TOPICAL BID PRN (Reason: Skin Irritation) RF: 0 fenofibrate 54 mg tablet 54 mg PO DAILY RF: 0 furosemide 80 mg tablet 40 mg PO QPM RF: 0 metformin 500 mg tablet extended release 24 hr 1,000 mg PO QPM RF: 0 metoprolol succinate 50 mg tablet extended release 24 hr 100 mg PO QPM RF: 0 potassium chloride 20 mEq tablet,ER particles/crystals 10 meq PO 2XWK RF: 0 lidocaine 5 % adhesive patch,medicated 1 patch topical DAILY RF: 0 mupirocin 2 % ointment 1 applic TOPICAL BID PRN (Reason: Skin Irritation) RF: 0 warfarin 5 mg tablet 2.5 mg PO 3XWK RF: 0 Discharge Orders: Left Against Medical Advice (Routine); Ordered 12/06/21 Ordered By: Freddy Malik Admission Data Admit Date/Time: 12/06/21 03:38 Attending Provider: Freddy Malik Admit Provider: Austin Green Primary Care Provider: Ch[place] Scherer
[2021-12-06] MEDS ORDERED: PRAVASTATIN SOD 40 MG TAB PO SCH (21:00)
[2021-12-07] MEDS ORDERED: cefTRIAXone SODIUM 2,000 MG in DEXTROSE 5% 50 ML IV SCH
[2021-12-07] MEDS ORDERED: LIDOCAINE 5% 1 PATCH TD SCH (09:00)
[2021-12-07] MEDS ORDERED: WARFARIN SOD 2.5 MG TAB PO SCH (16:00)
== END 2021-12-06 18:16 | disposition left against medical advice (07) | DRG 689 ==
LOC: ED 21:53 → 2S 12-06 03:38

== ENCOUNTER 2024-03-05 22:37 | Inpatient (IN) ==
--- OUTSIDE RECORDS SUMMARY | 2024-03-05 22:45 | External Medical Summary | Summary of Care ---
Author Name Unknown Organization [facility] Address [address] [place] [address] Phone [phone] Care Team Providers Care Production Editor Name Role Phone Chico Villarreal MD Primary Care Provider + Reason for Visit * Reason Comments eRx-Medication Refill Encounter Details Date Type Department Care Team (Late st Contact Info) Description 02/20/2024 Refill Family Practice [facility] [address] [facility] [place] [address] Chico Villarreal MD [address] [place] [address] Allergies No known active allergiesdocumented as of this encounter (statuses as of 02/22/2024) Medications Medication Sig Dispensed Refills Start Date End Date Status MULTIVITAMINS PO TABS one daily Active ASPIRIN 81 MG PO CHEW take one tablet daily 100 Tab 3 010 Active DOCUSATE SODIUM 100 MG PO CAPSIndications:C onstipation One pill by mouth daily for constipation 90 Cap 3 013 Active Additional Information Patient not taking.Informant: Spouse, Reported on 11/11/2023 Blood Glucose Monitoring Suppl ([employer] ULTRA SYSTEM) W/DEVICE KITIndications:DM type 2, goal A1c below 7 Use up to 4/day - Type II diabetes- #E11.9 1 Kit 0 016 Active Hexoskin ([employer])TOUCH DELICA LANCETS 33G MISCIndications:T ype 2 diabetes mellitus with hemoglobin A1c goal of less than 7.0% ([facility]) Ck FS daily as needed E11.9 100 Each 5 019 Active Acetaminophen 500 MG Oral Capsule Take 2 Capsules by mouth every 6 hours as needed for Pain, Moderate. Active Lactulose 10 GM/15ML Oral Solution (Constulose) TAKE 15 MILLILITER BY MOUTH EVERY DAY IN THE MORNING AND TAKE 15 MILLILITER BY MOUTH BEFORE BEDTIME NEEDED FOR CONSTIPATION 240 mL 12 023 Active Ketoconazole 2 % External Cream Apply topically to affected area 2 times a day. Apply to rash on face., under chest & groin rash 180 g 1 023 Active Additional Information Patient taking differently: 1 ApplicationTopicalBID PRN, Other, for rash, Apply to rash on face., under chest & groin rash, Informant: Spouse, Reported on 11/11/2023 Levothyroxine Sodium 88 MCG Oral Tablet (Levoxyl) TAKE 1 TABLET DAILY FOR THYROID 90 Tablet 3 023 Active Mirtazapine 15 MG Oral Tablet (Remeron)Indicati ons:Decreased appetite,Adjustme nt disorder with depressed mood,Insomnia, unspecified type Take 1 Tablet by mouth at bedtime. 30 Tablet 5 024 Active Ondansetron 4 MG Oral Tablet Disintegrating (Zofran)Indicatio ns:Nausea Place 1 Tablet on tongue every 8 hours as needed for Nausea. dissolve on tongue. 90 Tablet 1 024 Active Colchicine 0.6 MG Oral Tablet 2 tab at start of gout attack, 1 pill 1 hour later. (3 pills total per attack). Stop twice daily dosing. 12 Tablet 3 024 Active Mupirocin 2 % External Ointment (Bactroban) APPLY TOPICALLY TO AFFECTED AREA THREE TIMES A DAY FOR UP TO 14 DAYS 75 g 29 024 Active Additional Information Patient taking differently: 75 g Topical TID PRN, Other, skin irritation to folds of skin, Informant: Spouse, Reported on 11/11/2023 Vitamin D3 50 MCG (2000 UT) Oral Capsule Take 1 Capsule by mouth in the morning. Can take 2 of the 1,000 unit capsules. Active Digoxin 125 MCG Oral Tablet (Digox) Take 1 Tablet by mouth once a day on Thursday, Thursday, and Thursday only. Active Potassium Chloride ER 20 MEQ Oral Tablet Extended Release Take 1 Tablet by mouth in the morning. Active ProAir HFA 108 (90 Base) MCG/ACT Inhalation Aerosol Solution Inhale 2 Puffs by mouth 4 times a day as needed for Wheezing. Active Calcium Carbonate Antacid 500 MG Oral Tablet Chewable (Tums) Take 1 Tablet by mouth 2 times a day as needed for Heartburn. Active Fluticasone Propionate 50 MCG/ACT Nasal Suspension (Flonase) Administer 2 Sprays into nostril daily as needed for Allergies or Other (or nasal congestion). Active Warfarin Sodium 2.5 MG Oral Tablet (Coumadin) Take 1 Tablet by mouth once a day on Thursday, Thursday, and Thursday only. Or as directed by anticoagulation clinic Activ e Polyethylene Glycol 3350 17 GM/SCOOP Oral Powder (MiraLax) Take 17 g by mouth daily as needed for Constipation. Active Finasteride 5 MG Oral Tablet (Proscar) Take 1 Tablet by mouth in the morning. 024 Active Famotidine 20 MG Oral Tablet (Pepcid) Take 1 Tablet by mouth in the morning. 90 Tablet 024 Active Empagliflozin 10 MG Oral Tablet (Jardiance)Indica tions:Type 2 diabetes mellitus with hemoglobin A1c goal of less than 8.0% (HCC) Take 1 Tablet by mouth in the morning. 30 Tablet 11 024 Active OneTouch Ultra Test In Vitro Strip (Glucose Blood)Indications :Type 2 diabetes mellitus with hemoglobin A1c goal of less than 8.0% (HCC) TEST DAILY DIRECTED 100 Strip 3 024 Active Pantoprazole Sodium 40 MG Oral Tablet Delayed Release (Protonix) TAKE 1 TABLET BY MOUTH EVERY MORNING 30 MINUTES BEFORE THE FIRST MEAL OF THE DAY. DO NOT CRUSH, SPLIT OR CHEW THE TABLET. 90 Tablet 1 024 Active Furosemide 80 MG Oral Tablet (Lasix)Indication s:HTN, goal below 140/90,Congestive cardiomyopathy (HCC) Take 1 Tablet by mouth daily AND 0.5 Tablets daily at noon. 135 Tablet 3 024 Active Aldactone 25 MG Oral TabletIndications :HTN, goal below 140/90,Congestive cardiomyopathy (HCC) Take 1 Tablet by mouth daily AND 0.5 Tablets daily at noon. 135 Tablet 3 024 Active Polyethylene Glycol 3350 17 GM Oral Packet (MiraLax) Take 1 Packet by mouth in the morning. Active Warfarin Sodium 5 MG Oral Tablet (Coumadin) Take 1 Tablet by mouth once a day on Thursday, , Thursday, and Thursday only. or as directed by anticoagulation clinic 90 Tablet 3 024 Active Metoprolol Succinate ER 50 MG Oral Tablet Extended Release 24 Hour (toPROL XL)Indications:Pe rsistent atrial fibrillation (HCC) TAKE 3 TABLETS IN THE MORNING AND 2 TABLETS IN THE EVENING 450 Tablet 1 024 Active Allopurinol 300 MG Oral Tablet (Zyloprim)Indicat ions:Gouty arthropathy Take 1 Tablet by mouth in the morning. 90 Tablet 1 024 Active metFORMIN HCl ER 500 MG Oral Tablet Extended Release 24 Hour (Glucophage XR)Indications:Ty pe 2 diabetes mellitus with hemoglobin A1c goal of less than 8.0% (HCC) TAKE 1 TABLET EVERY MORNING AND 2 TABLETS WITH DINNER DAILY (DOSE INCREASE) 270 Tablet 1 024 Active Pravastatin Sodium 40 MG Oral Tablet (Pravachol)Indica tions:Congestive cardiomyopathy (HCC),High triglycerides,Dys lipidemia, goal LDL below 100 Take 1 Tablet by mouth at bedtime. 90 Tablet 1 024 Active Alfuzosin HCl ER 10 MG Oral Tablet Extended Release 24 Hour (Uroxatral)Indica tions:BPH with obstruction/lower urinary tract symptoms TAKE 1 TABLET DAILY AFTER A MEAL 90 Tablet 3 024 Active traMADol HCl 50 MG Oral Tablet (Ultram) Take 1 Tablet by mouth 2 times a day as needed (pain). 60 Tablet 024 Active traMADol HCl 50 MG Oral Tablet (Ultram) Take 1 Tablet by mouth 2 times a day as needed (pain). 60 Tablet 024 2023 Discontinued documented as of this encounter (statuses as of 02/22/2024) Active Problems Problem Noted Date Diagnosed Date Leg ulcer, right, limited to breakdown of skin 0 12/30/2023 Lumbar degenerative disc disease 10/15/2023 Symptomatic care patient 10/15/2023 Adult failure to thrive 10/15/2023 Permanent atrial fibrillation 03/14/2020 Secondary polycythemia 03/14/2020 DNR (do not resuscitate) 05/24/2019 Overview: 05/24/19 signed/scanned [facility]. Redone 02/14/20. Coronary artery disease invo lving torres martinez coronary artery of torres martinez heart without angina pectoris 04/19/2019 Dyslipidemia 04/11/2019 Acquired hypothyroidism 04/11/2019 Venous stasis dermatitis 12/10/2018 Obesity, Class I, BMI 30.0-34.9 (see actual BMI) 05/21/2018 DM type 2 with diabetic peripheral neuropathy Well adult exam 04/22/2017 Overview: 11/07 EGD [facility] mod gastritis chronic. 11/04 EMG-Abnormal study, although very limited. This electrodiagnostic study shows evidence of a severe, chronic, axonal sensorimotor polyneuropathy. All tested nerves in the right upper and right lower extremity were absent. 06/04 heme rec get pulse ox RA & Epo level (high). Renal US ok. Obed CBC yearly. 2016 echo--EF 45-50. 08/02 Colon-mult polyps PATH tubular adenomas. 06/02 EMG-b /l ulnar neuropathy .referred ortho 05/03-TTE-EF 45-49%, afib, mild LVH, mod LAE. No change from prior Gouty arthropathy 08/13/2016 Overview: 08/01 feet, knees proven. Start rx Type 2 diabetes mellitus wit h hemoglobin A1c goal of less than 8.0% 09/13/2015 Overview: ICD-10 update of inactive term Congestive cardiomyopathy 04/30/2010 HTN, goal below 130/80 05/23/2004 Obstructive sleep apnea Overview: CPAP Plus 12 cwp AHP documented as of this encounter (statuses as of 02/22/2024) Resolved Problems Problem Noted Date Diagnosed Date Resolved Date Pressure injury of buttock, stage 2 09/21/2023 11/11/2023 Morbid obesity due to excess calories 03/12/2023 10/15/2023 Abrasion 12/12/2022 08/24/2023 Acute right ankle pain 12/12/202208/24 Right elbow pain 12/12/2022 08/24/2023 Acute pain of right knee 12/12/202203/2024 Fall 12/12/2022 08/24/2023 Chronic idiopathic constipation 10/07/2021 08/24/2023 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02/15 Gastroesophageal reflux dise ase with esophagitis 03/14/2020 08/24/2023 Persistent atrial fibrillation 04/19/2019 03/14/2020 Ulnar neuropathy of both upper extremities 06/01/2017 10/15/2023 Overview: 06/02-EMG_ulnar neuropathies. Seeing ortho. Body mass index (BMI) of 40. 0 to 44.9 in adult 05/18/2017 05/21/2018 Overview: Per Obesity protocol #1 Tachycardia-induced cardiomyopathy 09/06/2016 10/15/2023 Hx of basal cell carcinoma 08/03/2015 0 04/11/2019 Overview: SCC/BCC L alar crease and SCC L neck 05/2018, SCCIS R cheek 07/2017, BCC L antihelix 2007 History of atrial flutter 08/12/2013 Hypothyroid 09/22/2012 04/11/2019 Obesity, Class II, BMI 35-39 .9, isolated (see actual BMI) 09/07/2012 05/21/2017 Overview: Per Obesity protocol #1 History of colon polyps 09/22/201103/18 Overview: adenomatous polyps-repeat colonoscopy in 2 years Vitamin D deficiency 06/18/2011 017 Paroxysmal atrial fibrillation 05/02/2010 03/14/2020 Anticoagulation management encounter 05/02/2010 03/14/2020 [employer] current use of ant icoagulant therapy 05/02/2010 10/15/2023 Overview: ICD-10 update of inactive term Benign neoplasm of colon 03/01/2009 Localized, primary osteoarthritis of hand 11/26/2007 04/11/2019 ADVANCE DIRECTIVE INFORMATION 10/28/2007 04/11/2019 Overview: Yes, Patient instructed to provide copy of advance directive for provider to review and to be scanned into Electronic Medical Record Obesity, BMI not known 10/08/200711/13 Overview: Per Obesity Taxonomy Venous insufficiency 10/08/2007 020 LUMBAR DISC DISPLACEMENT- mu ltiple left disc protrusions: L2-3, L3-4, L4-5, L5-S1 02/12/2007 Hematuria 01/25/2004 04/11/2019 Overview: ICD-10 update of inactive term High triglycerides 9 BACKACHE NOS 10/13/2018 documented as of this encounter (statuses as of 02/22/2024) Immunizations Name Administration Dates Next Due COVID-19 mRNA, LNP-s, No Pre serve, 2-Dose Series (Moderna) 11/03/2020,10/01/2020 COVID-19, mRNA, LNP-s, PF, B ooster, 100mcg/0.5mg (Moderna) 02/28/2022,07/27/2021 H1N1 2009 Influenza, IM 09/17/2009 Pneumococcal Conjugate Vacc, 13 Valent (Prevnar) 04/19/2015 Pneumococcal Polysaccharide PPV23 (Pneumovax) 06/11/2012,12/09/2005 Season Influenza, Quad, PF, Adjuvanted, 65+ Yrs, IM (FLUAD) 05/04/2020 Seasonal Influenza Virus Vac cine, Unspecified Formulation 05/17/2020 Seasonal Influenza, PF, 6 M & above, IM , (FluLaval or Fluzone) 04/18/2021,05/21/2018 Seasonal Influenza, QUAD, wi th Preserv, 6 mons & Above, 0.5 mL, IM 05/21/2017 Seasonal Influenza, Quad, Na noreen (Flumist) 05/21/2017 Seasonal Influenza, Quadriva lent Hd (Fluzone Hd) 07/03/2023,06/19/2022 Seasonal Influenza, Quadriva lent, No Preserve, IM 06/05/2016 Seasonal Influenza, Split, I IV3, With Preserve, Inj 05/09/2017,04/19/2015,05/11/2014,05/27,05/25/2012,05/05/2011,05/06/2010 ,06/05/2009,06/15/2008,06/15/2007,05/19 Seasonal Influenza, Trivalen t, Adjuvanted, 65+ yrs 04/19/2019 TD - Tetanus/Diptheria (ADULT) 06/29/2006 TDAP (age 10 and older)(Boostrix) 03/12/2023, Varicella Zoster Vaccine (Adult) 05/22/2009 Zoster Vaccine Recombinant (Shingrix) 09/07/2020 ,03/16/2020 documented as of this encounter Social History Tobacco Use Types Packs/Day Years Used Date Smoking Tobacco: Former Cigarettes 1 10 0 08/17/1969 - 08/17/1979 Smokeless Tobacco: Never Comments:Quit about 1979. Al so smoked cigars during stated time Alcohol Use Standard Drinks/Week Comments No 0 (1 standard drink = 0.6 oz pur e alcohol) PHQ-2 Answer Date Recorded PHQ Adult Total Score 2 10/09/2023 Hunger Vital Sign Answer Date Recorded Within the past 12 months, y ou worried that your food would run out before you got the money to buy more. Never true 10/09/19 24 Within the past 12 months, t he food you bought just didn't last and you didn't have money to get more. Never true 10/09/2023 Childcare Answer Date Recorded Do you feel overwhelmed with taking care of a child, family member or friend? No 10/09/2023 Does your family need help f inding childcare? (Household - for ages 0-17 years) Not on file 10/09/2023 Clothing Answer Date Recorded Have you been unable to get clothing when it was really needed? No 10/09/2023 Is your family able to get c lothes or diapers when needed? (Household - for ages 0-17 years) Not on file 10/09/2023 Personal Safety Answer Date Recorded Do you feel unsafe or have concerns for your saf ety? No 10/09/2023 Do you have concerns for you r family's safety? (Household - for ages 0-17 years) Not on file 10/09/2023 Utilities Answer Date Recorded Do you have trouble paying y our heating, water, or electric bill? No 10/09/2023 Is your family able to pay t he heat, water, or electric bill? (Household - for ages 0-17 years) Not on file 10/09/2023 Does your family have access to good internet? (Household - for ages 0-17 years) Not on file 10/09/2023 Employment Status Answer Date Recorded Are you unemployed or without regular income? No 10/09/2023 Does the household have a re gular source of income? (Household - for ages 0-17 years) Not on file 10/09/2023 Social Connections Answer Date Recorded How often do you feel lonely or isolated from th ose around you? Never 10/09/2023 Financial Resource Strain Answer Date R ecorded Do you have any trouble payi ng for your medications, or do you think you might in the future? No 10/09/2023 Does your family have troubl e paying for medicine? (Household - for ages 0-17 years) Not on file 10/09/2023 Transportation Needs Answer Date Record ed READ ONLY Do you have troubl e getting a ride to medical visits or work? Never True 10/09/2023 Does your family have a hard time getting a ride to doctors visits? (Household - for ages 0-17 years) Not on file 10/09/2023 Has lack of transportation k ept you from medical appointments, meetings, work, or from getting things needed for daily living? Check all that apply. (Adult - for ages 18 years and over) Not on file 10/09/2023 Do you (or your family) have trouble finding or paying for a ride (transportation)? (Household - for ages 0-17 years) Not on file 10/09/2023 Housing Stability Answer Date Recorded Do you currently live in a s helter or have no steady place to sleep at night? No 10/09/2023 READ ONLY Do you think you a re at risk of becoming homeless? No 10/09/2023 Does your family worry about paying for your home or becoming homeless? (Household - for ages 0-17 years) Not on file 0 10/09/2023 Are you homeless or worried that you might be in the future? (Adult - for ages 18 years and over) Not on file Are you (or your family) beth eless or worried that you might be in the future? (Household - for ages 0-17 years) Not on file Food Insecurity Answer Date Recorded Do you need food for this week? No 10/09/2023 Are you able to get enough f ood for your family? (Household - for ages 0-17 years) Not on file 10/09/2023 Does your family need food t his week? (Household - for ages 0-17 years) Not on file 10/09/2023 Do you always have enough fo od for your family? (Household - for ages 0-17 years) Not on file 10/09/2023 Sex and Gender Information Value Date Recorded Sex Assigned at Male 03/19/2020 8:31 AM EDT Gender Identity Male 03/19/2020 8:31 AM EDT Sexual Orientation Straight 03/19/2020 8: 31 AM EDT Job Start Date Occupation Industry Not on file Not on file Not on file documented as of this encounter Miscellaneous Notes * Telephone Encounter - Chico Villarreal MD - 02/22/2024 10:39 PM EDT Signed Prescriptions: Disp Refills traMADol HCl 50 MG Oral Tablet (Ultram) 60 Tab*0 Sig: Take 1 Tablet by mouth 2 times a day as needed (pain). Authorizing Provider: CHICO VILLARREAL * Telephone Encounter - Alon Olivo [facility] - 02/22/2024 1:10 PM EDT Pending Prescriptions: Disp Refills traMADol HCl 50 MG Oral Tablet [Pharmacy M*60 Tab*0 Sig: TAKE 1 TABLET BY MOUTH TWO TIMES DAILY NEEDED FOR PAIN * Telephone Encounter - Alon Olivo RPh - 02/22/2024 1:07 PM EDT I have reviewed the patients controlled substance dispensing history in the Prescription Drug Monitoring Program in compliance with the [facility] regulations before prescribing a controlled substance. PDMP checked on 02/22/2024. Pending Prescriptions: Disp Refills traMADol HCl 50 MG Oral Tablet (Ultram) [*60 Tab*0 Sig: TAKE 1 TABLET BY MOUTH TWO TIMES DAILY NEEDED FOR PAIN Last Visit: 02/15/2024 (in office), 02/02/2020 (telemedicine) Next Visit: 07/13/2024 Date medication was last filled: 01/26/24 Date medication is due for refill: 02/23/24 Pharmacy: [facility] [id number] [place] Is this request for a controlled substance? Yes and Urine Drug Screen Not completed Toxicology results: No results found. However, due to the size of the patient record, not all encounters were searched.Please check Results Review for a complete set of results. Please approve if appropriate. Thanks, Alon Olivo, PharmD Clinical Pharmacist [facility] ([facility]) [phone] 02/22/2024, 1:07 PM documented in this encounter Plan of Treatment Upcoming Encounters Date Type Department Care Team (Late st Contact Info) Description 03/02/2024 9:20 AM EDT Office Visit Podiatry [address] [place] [address] Saranya Bolden DPM [address] [facility] [place] [address] 03/30/2024 9:30 AM EDT Anticoagulation Pharmacy, [address] [place] [address] [facility] [address] [place] [id number] 04/05/2024 8:00 AM EDT Office Visit Cardiology, [facility] [address] [place] [address] Aris Potter PA-C [address] [place] [id number] 04/19/2024 9:00 AM EDT Office Visit Sleep Disorders Ctr [facility] [address] [place] [phone] Janeen Montaño CRNP [address] [place] [address] 07/13/2024 8:20 AM EST Office Visit Family Practice [facility] [address] [place] [address] Chico Villarreal MD [address] [place] [address] Health Maintenance Due Date Last Done Comments COVID-19 Vaccine (2022-2 4 season) 2023 02/28/2022, 07/27/2021, 11/03/2020, Additional history exists Influenza Vaccine (FLU shot) (#1) 2024 07/03/2023, 06/19/2022, 04/18/2021, Additional history exists DIG LEVEL FOR MEDICATION MONITORING YEARLY 09/12/2024 09/12/2023, 07/11/2023, 06/15/2023, Additional history exists Depression Screening 10/09/2024 10/09/2023 TSH 10/12/2024 10/12/2023, 06/18, 03/12/2023, Additional history exists Colonoscopy Discontinued 07/17/2017, 09/2013, 09/22/2011, Additional history exists Diabetic Foot Exam Discontinued 03/19/2020, 0 04/19/2019, 03/31/2017, Additional history exists Zoster Vaccines Completed 09/07/2020, 02/16, 05/22/2009 Diabetic Eye Exam Discontinued 12/11/2023, , 10/01/2021, Additional history exists Albumin/Creatinine Ratio Discontinued 024, 07/11/2023, 05/03/2022, Additional history exists documented as of this encounter Medical Devices Not on filedocumented as of this encounter Advance Directives Documents on File Type Date Recorded 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
--- OUTSIDE RECORDS SUMMARY | 2024-03-05 22:45 | External Medical Summary | Summary of Care ---
Author Name Unknown Organization [facility] Address [address] [place] [address] Phone [phone] Care Team Providers Care Shanker Out Name Role Phone Chico Scherer MD Primary Care Provider + Reason for Visit * Reason Comments NEW PATIENT R foot Pain R foot * Evaluate & Treat - Unlimited Visits (Within 30 days (routine)) - Authorized Specialty Diagnoses / Procedures Referred By Beckie murdock Referred To Contact Podiatry Diagnoses Right foot pain [facility] Guy [facility] [address] [facility] [address] Referral ID Status Reason Start Date Expiration Date Visits Requested Visits Authorized [id number] Authorized Specialty Services Required 02/15/2024 08/17/[phone] Encounter Details Date Type Department Care Team (Late st Contact Info) Description 03/02/2024 9:20 AM EDT Office Visit Podiatry [facility] 132 [facility] [place] [address] Saranya Bolden DPM [address] [place] [address] Right foot pain*; DM type 2 with diabetic peripheral neuropathy (HCC) Allergies No known active allergiesdocumented as of this encounter (statuses as of 03/02/2024) Medications Medication Sig Dispensed Refills Start Date End Date Status MULTIVITAMINS PO TABS one daily Active ASPIRIN 81 MG PO CHEW take one tablet daily 100 Tab 3 05/21/20 10 Active DOCUSATE SODIUM 100 MG PO CAPSIndications:Co nstipation One pill by mouth daily for constipation 90 Cap 3 09/20/19 13 Active Additional Information Patient not taking.Informant: Spouse, Reported on 11/11/2023 Blood Glucose Monitoring Suppl (Telepo ULTRA SYSTEM) W/DEVICE KITIndications:DM type 2, goal A1c below 7 Use up to 4/day - Type II diabetes- #E11.9 1 Kit 0 09/13/19 16 Active NWIXTOUCH DELICA LANCETS 33G MISCIndications:Ty pe 2 diabetes mellitus with hemoglobin A1c goal of less than 7.0% ([facility]) Ck FS daily as needed E11.9 100 Each 5 04/21/20 19 Active Acetaminophen 500 MG Oral Capsule Take 2 Capsules by mouth every 6 hours as needed for Pain, Moderate. Active Lactulose 10 GM/15ML Oral Solution (Constulose) TAKE 15 MILLILITER BY MOUTH EVERY DAY IN THE MORNING AND TAKE 15 MILLILITER BY MOUTH BEFORE BEDTIME NEEDED FOR CONSTIPATION 240 mL 12 11/21/19 23 Active Ketoconazole 2 % External Cream Apply topically to affected area 2 times a day. Apply to rash on face., under chest & groin rash 180 g 1 03/12/20 23 Active Additional Information Patient taking differently: 1 ApplicationTopicalBID PRN, Other, for rash, Apply to rash on face., under chest & groin rash, Informant: Spouse, Reported on 11/11/2023 Levothyroxine Sodium 88 MCG Oral Tablet (Levoxyl) TAKE 1 TABLET DAILY FOR THYROID 90 Tablet 3 03/30/20 23 Active Mirtazapine 15 MG Oral Tablet (Remeron)Indicatio ns:Decreased appetite,Adjustmen t disorder with depressed mood,Insomnia, unspecified type Take 1 Tablet by mouth at bedtime. 30 Tablet 5 08/24/19 24 Active Ondansetron 4 MG Oral Tablet Disintegrating (Zofran)Indication s:Nausea Place 1 Tablet on tongue every 8 hours as needed for Nausea. dissolve on tongue. 90 Tablet 1 08/24/19 24 Active Colchicine 0.6 MG Oral Tablet 2 tab at start of gout attack, 1 pill 1 hour later. (3 pills total per attack). Stop twice daily dosing. 12 Tablet 3 09/15/19 24 Active Mupirocin 2 % External Ointment (Bactroban) APPLY TOPICALLY TO AFFECTED AREA THREE TIMES A DAY FOR UP TO 14 DAYS 75 g 29 09/28/19 24 Active Additional Information Patient taking differently: 75 [...] for Allergies or Other (or nasal congestion). Activ e Warfarin Sodium 2.5 MG Oral Tablet (Coumadin) Take 1 Tablet by mouth once a day on Thursday, Thursday, and Thursday only. Or as directed by anticoagulation clinic Activ e Polyethylene Glycol 3350 17 GM/SCOOP Oral Powder (MiraLax) Take 17 g by mouth daily as needed for Constipation. Active Finasteride 5 MG Oral Tablet (Proscar) Take 1 Tablet by mouth in the morning. 10/19/19 24 Active Famotidine 20 MG Oral Tablet (Pepcid) Take 1 Tablet by mouth in the morning. 90 Tablet 12/22/19 24 Active Empagliflozin 10 MG Oral Tablet (Jardiance)Indicat ions:Type 2 diabetes mellitus with hemoglobin A1c goal of less than 8.0% (HCC) Take 1 Tablet by mouth in the morning. 30 Tablet 11 12/30/19 24 Active OneTouch Ultra Test In Vitro Strip (Glucose Blood)Indications: Type 2 diabetes mellitus with hemoglobin A1c goal of less than 8.0% (HCC) TEST DAILY DIRECTED 100 Strip 3 01/02/20 24 Active Pantoprazole Sodium 40 MG Oral Tablet Delayed Release (Protonix) TAKE 1 TABLET BY MOUTH EVERY MORNING 30 MINUTES BEFORE THE FIRST MEAL OF THE DAY. DO NOT CRUSH, SPLIT OR CHEW THE TABLET. 90 Tablet 1 01/25/20 24 Active Furosemide 80 MG Oral Tablet (Lasix)Indications :HTN, goal below 140/90,Congestive cardiomyopathy (HCC) Take 1 Tablet by mouth daily AND 0.5 Tablets daily at noon. 135 Tablet 3 01/29/20 24 Active Aldactone 25 MG Oral TabletIndications: HTN, goal below 140/90,Congestive cardiomyopathy (HCC) Take 1 Tablet by mouth daily AND 0.5 Tablets daily at noon. 135 Tablet 3 01/29/20 24 Active Polyethylene Glycol 3350 17 GM Oral Packet (MiraLax) Take 1 Packet by mouth in the morning. Active Warfarin Sodium 5 MG Oral Tablet (Coumadin) Take 1 Tablet by mouth once a day on Thursday, , Thursday, and Thursday only. or as directed by anticoagulation clinic 90 Tablet 3 02/02/20 24 Active Metoprolol Succinate ER 50 MG Oral Tablet Extended Release 24 Hour (toPROL XL)Indications:Per sistent atrial fibrillation (HCC) TAKE 3 TABLETS IN THE MORNING AND 2 TABLETS IN THE EVENING 450 Tablet 1 02/19/20 24 Active Allopurinol 300 MG Oral Tablet (Zyloprim)Indicati ons:Gouty arthropathy Take 1 Tablet by mouth in the morning. 90 Tablet 1 02/19/20 24 Active metFORMIN HCl ER 500 MG Oral Tablet Extended Release 24 Hour (Glucophage XR)Indications:Typ e 2 diabetes mellitus with hemoglobin A1c goal of less than 8.0% (HCC) TAKE 1 TABLET EVERY MORNING AND 2 TABLETS WITH DINNER DAILY (DOSE INCREASE) 270 Tablet 1 02/19/20 24 Active Pravastatin Sodium 40 MG Oral Tablet (Pravachol)Indicat ions:Congestive cardiomyopathy (HCC),High triglycerides,Dysl ipidemia, goal LDL below 100 Take 1 Tablet by mouth at bedtime. 90 Tablet 1 02/19/20 24 Active Alfuzosin HCl ER 10 MG Oral Tablet Extended Release 24 Hour (Uroxatral)Indicat ions:BPH with obstruction/lower urinary tract symptoms TAKE 1 TABLET DAILY AFTER A MEAL 90 Tablet 3 02/19/20 24 Active traMADol HCl 50 MG Oral Tablet (Ultram) Take 1 Tablet by mouth 2 times a day as needed (pain). 60 Tablet 02/22/20 24 Active documented as of this encounter (statuses as of 03/02/2024) Active Problems Problem Noted Date Diagnosed Date Leg ulcer, right, limited to breakdown of skin 0 12/30/2023 Lumbar degenerative disc disease 10/15/2023 Symptomatic care patient 10/15/2023 Adult failure to thrive 10/15/2023 Permanent atrial fibrillation 03/14/2020 Secondary polycythemia 03/14/2020 DNR (do not resuscitate) 05/24/2019 Overview: 05/24/19 signed/scanned [facility] [place]. Redone 02/14/20. Coronary artery disease invo lving hamilton coronary artery of hamilton heart without angina pectoris 04/19/2019 Dyslipidemia 04/11/2019 Acquired hypothyroidism 04/11/2019 Venous stasis dermatitis 12/10/2018 Obesity, Class I, BMI 30.0-34.9 (see actual BMI) 05/21/2018 DM type 2 with diabetic peripheral neuropathy Well adult exam 04/22/2017 Overview: 11/07 EGD [facility] mod gastritis chronic. 11/04 EMG-Abnormal study, although [...] as of this encounter (statuses as of 03/02/2024) Resolved Problems Problem Noted Date Diagnosed Date [...] SCCIS R cheek 07/2017, BCC L antihelix 2008 History of atrial flutter 08/12/2013 Hypothyroid 09/22/2012 04/11/2019 Obesity, Class II, BMI 35-39 .9, isolated (see actual BMI) 09/07/2012 05/21/2017 Overview: Per Obesity protocol #1 History of colon polyps 09/22/201103/18 Overview: adenomatous polyps-repeat colonoscopy in 2 years Vitamin D deficiency 06/18/2011 017 Paroxysmal atrial fibrillation 05/02/2010 03/14/2020 Anticoagulation management encounter 05/02/2010 03/14/2020 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 (Household - for ages [...] on file documented as of this encounter Progress Notes * Saranya Bolden, MINE - 03/02/2024 9:18 AM EDT Podiatry Established Note [facility] Name: Brionna Bone : 1940 Date: 03/02/2024 REASON FOR VISIT: right foot pain SUBJECTIVE: This patient is a 83 year old male who presents today with complaints of recent right foot pain. I had seen Brionna in the past with the last visit being in June 2022. Today, he presents in a wheelchair. He does not transfer to exam chair. He is accompanied by his . He reports having a 1 day history of significant pain to the right forefoot area. He denies injury and reported pain occurred every 2-4 minutes. He is unsure of what exact location the pain was but it has resolved. He does have significant lower leg edema of which he wears tubi precision agronomist for. He reports seeing Vascular at [facility] in March for a possible venous procedure. Brionna does have type 2 DM with neuropathy. He notes chronic foot pain. Past Medical History: Diagnosis Date Adult failure to thrive 10/15/2023 Atrial fibrillation (HCC) A Fibrillation Benign neoplasm of colon 09/22/2011 adenomatous polyps-repeat colonoscopy in 2 years Coronary artery disease involving hamilton coronary artery of hamilton heart without angina pectoris 04/19/2019 DM type 2 with diabetic peripheral neuropathy (HCC) 02/24/2018 DNR (do not resuscitate) 05/24/2019 Dyslipidemia 04/11/2019 Dyslipidemia, goal LDL below 160 Hypercholesterolemia Gastroesophageal reflux disease with esophagitis 03/14/2020 Gouty arthropathy 08/13/2016 Hypothyroid 09/22/2012 Hypothyroidism Lumbar degenerative disc disease 10/15/2023 Other specified disorders of liver hx mono hepatitis Permanent atrial fibrillation (HCC) 03/14/2020 Secondary polycythemia 03/14/2020 Symptomatic care patient 10/15/2023 Type II diabetes mellitus (HCC) Ulnar neuropathy of both upper extremities 06/01/2017 Venous stasis dermatitis 12/10/2018 ALLERGIES: Review of patient's allergies indicates: No Known Allergies REVIEW OF SYSTEMS: CONSTITUTIONAL: No fevers, sweats, or chills FOCUSED PODIATRIC EXAM: Vascular: Pedal pulses palpable including dorsalis pedis and posterior tibial artery at 2/4 right. Capillary refill time is within normal limits to all toes. Non pitting edema to both lower legs including right foot. No significant warmth. Neurologic: Sensation (light touch) intact to the right foot. Musculoskeletal: No pain is reported with palpation of the right foot. Dermatological: Skin temperature, texture, and turgor are within normal limits. No open lesions. There is no erythema or ecchymosis noted. The right fifth toenail is discolored, dark. The right first toenail is discolored, yellow. DIAGNOSTIC STUDIES: X-ray, right foot, 03/02/2024 This includes three weight bearing x-rays AP MO and Lateral. Calcified vessels noted. Diffuse osteopenia noted. No evidence of fracture. Hemoglobin AIC Results: Lab Results Component Value Date/Time HEMOGLOBIN A1C - [facility] 6.8 (H) 12/30/2023 01:20 PM HEMOGLOBIN A1C - [facility] 9.2 (H) 07/11/2023 08:14 AM HEMOGLOBIN A1C - [facility] 7.0 (H) 05/02/2022 10:09 AM HEMOGLOBIN A1C - [facility] 7.6 (H) 04/23/2019 09:28 AM HEMOGLOBIN A1C - [facility] 8.4 (H) 10/13/2018 11:48 AM HEMOGLOBIN A1C - [facility] 8.0 (H) 05/21/2018 04:49 PM HEMOGLOBIN A1C POCT - [facility] 7.5 (H) 01/21/2021 09:47 AM ASSESSMENT: ICD-10-CM 1. Right foot pain M79.671 2. DM type 2 with diabetic peripheral neuropathy (HCC) E11.42 PLAN: I personally reviewed right foot x-rays as above along with last [id number]. He has no pain today and only had pain x 1 day about 1 month ago. I question if this was a nerve irritation or related to swelling. If this occurs again, he is to contact this office. He has a follow up with vascular and maintains compression/foot inspections. Follow up: as needed Saranya Bolden DPM documented in this encounter Nursing Notes * Marge Landry LPN - 03/02/2024 9:12 AM EDT NEW Pt Pt c/o intermittent pain in his R foot heel and Great toe and 2nd toe Pt denies pain at this visit Pt is Diabetic; A1C 6.8 on 12/30/23 Pt is accompanied by his today Xray R foot today Laura Malik LPN documented in this encounter Plan of Treatment Upcoming Encounters Date Type Department Care Team (Late st Contact Info) Description 03/30/2024 9:30 AM EDT [facility] 132 [facility] [place] [address] [facility] [address] [place] [phone] 04/05/2024 8:00 AM EDT Office Visit Cardiology, [facility] [address] [place] [address] Aris Potter PA-C [address] [place] [phone] 04/19/2024 9:00 AM EDT Office Visit Sleep Disorders Ctr [facility] [address] [place] [phone] Janeen Montaño CRNP [address] [place] [address] 07/13/2024 8:20 AM EST Office Visit Family Practice [facility] [address] [place] [address] Chico Scherer MD [address] [place] [phone] Pending Results Name Type Priority Associated Diagnoses Date /Time XR FOOT 3 OR MORE VIEWS Medical Imaging Routine Right foot pain 03/02/2024 9:28 AM EDT Health Maintenance Due Date Last Done Comments COVID-19 Vaccine (2022- 4 season) 2023 02/28/2022, 07/27/2021, 11/03/2020, Additional [...] Not on filedocumented as of this encounter Visit Diagnoses Diagnosis Right foot pain- Primary Pain in limb DM type 2 with diabetic peripheral neuropathy (HCC) Type II or unspecified type diabetes mellitus with neurological manifestations, not stated as uncontrolled documented in this encounter Advance Directives Documents on File Type Date Recorded Patient Auto Brake Technician Expl anation POLST 10/01/2023 8:31 AM POL (Pierce ited DNR) Advance Directives and Living Will 03/11/2017 LIVING WILL Power of Cobol Engineer 03/11/2017 [facility] Care Teams Shanker Out Relationship Specialty Start Date End Date Chico Scherer MD [address] [place] [address] PCP - General Family Medicine 08/27/16 documented as of this encounter
--- OUTSIDE RECORDS SUMMARY | 2024-03-05 22:45 | External Medical Summary | Summary of Care ---
Author Name Unknown Organization [facility] Address [address] [place] [address] Phone [phone] Care Team Providers Care Home School Coordinator Name Role Phone Chico Scherer MD Primary Care Provider + Reason for Visit * Reason Onset Date Comments Appointment 02/15/2024 Encounter Details Date Type Department Care Team (Late st Contact Info) Description 02/15/2024 Telephone Family Practice [facility] 132 [place] [address] Chico Scherer MD [address] [place] [address] Appointment Allergies No known active allergiesdocumented as of this encounter (statuses as of 02/19/2024) Medications Medication Sig Dispensed Refills Start Date End Date Status MULTIVITAMINS PO TABS one daily Active ASPIRIN 81 MG PO CHEW take one tablet daily 100 Tab 3 05/21/20 10 Active DOCUSATE SODIUM 100 MG PO CAPSIndications:C onstipation One pill by mouth daily for constipation 90 Cap 3 09/20/19 13 Active Additional Information Patient not taking.Informant: Spouse, Reported on 11/11/2023 Blood Glucose Monitoring Suppl ([employer] ULTRA SYSTEM) W/DEVICE KITIndications:DM type 2, goal A1c below 7 Use up to 4/day - Type II diabetes- #E11.9 1 Kit 0 09/13/19 16 Active ONETOUCH DELICA LANCETS 33G MISCIndications:T ype 2 diabetes mellitus with hemoglobin A1c goal of less than 7.0% ([facility]) Ck FS daily as needed E11.9 100 Each 5 04/21/20 19 Active Acetaminophen 500 MG Oral Capsule Take 2 Capsules by mouth every 6 hours as needed for Pain, Moderate. Active Lactulose 10 GM/15ML Oral Solution (Constulose) TAKE 15 MILLILITER BY MOUTH EVERY DAY IN THE MORNING AND TAKE 15 MILLILITER BY MOUTH BEFORE BEDTIME NEEDED FOR CONSTIPATION 240 mL 11/21/19 23 Active Ketoconazole 2 % External Cream Apply topically to affected area 2 times a day. Apply to rash on face., under chest & groin rash 180 g 03/12/20 23 Active Additional Information Patient taking differently: 1 ApplicationTopicalBID PRN, Other, for rash, Apply to rash on face., under chest & groin rash, Informant: Spouse, Reported on 11/11/2023 Levothyroxine Sodium 88 MCG Oral Tablet (Levoxyl) TAKE 1 TABLET DAILY FOR THYROID 90 Tablet 3 03/30/20 23 Active Mirtazapine 15 MG Oral Tablet (Remeron)Indicati [...] FOR UP TO 14 DAYS 75 g 09/28/19 24 Active Additional Information Patient taking [...] 24 Active Empagliflozin 10 MG Oral Tablet (Jardiance)Indica [...] DIRECTED 100 Strip 3 01/02/20 24 Active traMADol HCl 50 MG Oral Tablet (Ultram) Take 1 Tablet by mouth 2 times a day as needed (pain). 60 Tablet 01/25/20 24 Active Pantoprazole Sodium 40 MG Oral Tablet Delayed Release (Protonix) TAKE 1 TABLET BY MOUTH EVERY MORNING 30 MINUTES BEFORE THE FIRST MEAL OF THE DAY. DO NOT CRUSH, SPLIT OR CHEW THE TABLET. 90 Tablet 1 01/25/20 24 Active Furosemide 80 MG Oral Tablet (Lasix)Indication s:HTN, goal below 140/90,Congestive cardiomyopathy (HCC) Take 1 Tablet by mouth daily AND 0.5 Tablets daily at noon. 135 Tablet 3 01/29/20 24 Active Aldactone 25 MG Oral TabletIndications :HTN, [...] clinic 90 Tablet 3 02/02/20 24 Active Allopurinol 300 MG Oral Tablet (Zyloprim)Indicat ions:Gouty arthropathy TAKE 1 TABLET DAILY 90 Tablet 3 05/01/20 23 024 Discontin ued(Refil l) Metoprolol Succinate ER 50 MG Oral Tablet Extended Release 24 Hour (toPROL XL)Indications:Pe rsistent atrial fibrillation (HCC) TAKE 3 TABLETS IN THE MORNING AND 2 TABLETS IN THE EVENING 450 Tablet 3 05/11/20 23 024 Discontin ued(Refil l) Pravastatin Sodium 40 MG Oral Tablet (Pravachol)Indica tions:Congestive cardiomyopathy (HCC),High triglycerides,Dys lipidemia, goal LDL below 100 TAKE 1 TABLET AT BEDTIME 90 Tablet 3 06/08/20 23 024 Discontin ued(Refil l) metFORMIN HCl ER 500 MG Oral Tablet Extended Release 24 Hour (Glucophage XR)Indications:Ty pe 2 diabetes mellitus with hemoglobin A1c goal of less than 8.0% (HCC) TAKE 1 TABLET EVERY MORNING AND 2 TABLETS WITH DINNER DAILY (DOSE INCREASE) 270 Tablet 2 06/11/20 23 024 Discontin ued(Refil l) Alfuzosin HCl ER 10 MG Oral Tablet Extended Release 24 Hour (Uroxatral)Indica tions:BPH with obstruction/lower urinary tract symptoms TAKE 1 TABLET DAILY AFTER A MEAL 90 Tablet 3 09/29/19 24 024 Discontin ued(Refil l) documented as of this encounter (statuses as of 02/19/2024) Active Problems Problem Noted Date Diagnosed Date Leg ulcer, right, limited to breakdown of skin 0 12/30/2023 Lumbar degenerative disc disease 10/15/2023 Symptomatic care patient 10/15/2023 Adult failure to thrive 10/15/2023 Permanent atrial fibrillation 03/14/2020 Secondary polycythemia 03/14/2020 DNR (do not resuscitate) 05/24/2019 Overview: 05/24/19 signed/scanned [facility] [employer]. Redone 02/14/20. Coronary artery disease invo lving [place] coronary artery of [place] heart without angina pectoris 04/19/2019 Dyslipidemia 04/11/2019 Acquired hypothyroidism 04/11/2019 Venous stasis dermatitis 12/10/2018 Obesity, Class I, BMI 30.0-34.9 (see actual BMI) 05/21/2018 DM type 2 with diabetic peripheral neuropathy Well adult exam 04/22/2017 Overview: 11/07 EGD [facility] mod gastritis chronic. 11/04 EMG-Abnormal study, although very limited. This electrodiagnostic study shows evidence of a severe, chronic, axonal sensorimotor polyneuropathy. All tested nerves in the right upper and right lower extremity were absent. 06/04 heme rec get pulse ox RA & Epo level (high). Renal US ok. Oebd CBC yearly. 2016 echo--EF 45-50. 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 I'm sorry for the confusion. Thank you!! documented in this encounter Plan of Treatment Upcoming Encounters Date Type Department Care Team (Late st Contact Info) Description 03/02/2024 9:20 AM EDT Office Visit Podiatry [facility] 132 [facility] [place] [address] Saranya Bolden DPM [address] [facility] [place] [address] 03/30/2024 9:30 AM EDT Anticoagulation Pharmacy, [facility] [address] [facility] [place] [address] [facility] [address] [place] [address] 04/05/2024 8:00 AM EDT Office Visit Cardiology, [facility] [address] [place] [address] Aris Potter PA-C [address] [place] [address] 04/19/2024 9:00 AM EDT Office Visit Sleep Disorders Ctr [facility] [address] [place] [phone] Janeen Montaño CRNP [address] [place] [address] 07/13/2024 8:20 AM EST Office Visit Family Practice [facility] [address] [place] [address] Chico Scherer MD [address] [place] [address] Health Maintenance Due Date Last Done Comments [...] Documents on File Type Date Recorded Patient Rn Cardiac Cath Expl anation POLST 10/01/2023 8:31 AM POLST (Pierce ited DNR) Advance Directives and Living Will 03/11/2017 LIVING WILL Power of Steam Conditioning Operator 03/11/2017 [facility] Care Teams Home School Coordinator Relationship Specialty Start Date End Date Chico Scherer MD [address] [place] [phone] PCP - General Family Medicine 08/27/16 documented as of this encounter
--- OUTSIDE RECORDS SUMMARY | 2024-03-05 22:46 | External Medical Summary | Summary of Care ---
Author Name Unknown Organization [facility] Address [address] [place] [address] Phone [phone] Care Team Providers Care Field Ironworker Name Role Phone Chico Scherer MD Primary Care Provider + Reason for Visit * Reason Onset Date Comments Medication Refill 02/02/2024 Encounter Details Date Type Department Care Team (Late st Contact Info) Description 02/02/2024 Refill Family Practice [facility] [address] [place] [address] Chico Scherer MD [address] [place] [address] Allergies No known active allergiesdocumented as of this encounter (statuses as of 02/02/2024) Medications Medication Sig Dispensed Refills Start Date [...] Reported on 11/11/2023 Blood Glucose Monitoring Suppl (Rifiniti ULTRA SYSTEM) W/DEVICE KITIndications:DM type 2, goal A1c below 7 Use up to 4/day - Type II diabetes- #E11.9 1 Kit 0 09/13/19 16 Active ONETOUCH DELICA LANCETS 33G MISCIndications:Ty pe 2 diabetes mellitus with hemoglobin A1c goal of less than 7.0% ([facility]) Ck FS daily as needed E11.9 100 Each 04/21/20 Active Acetaminophen 500 MG Oral Capsule Take [...] THYROID 90 Tablet 3 03/30/20 23 Active Allopurinol 300 MG Oral Tablet (Zyloprim)Indicati ons:Gouty arthropathy TAKE 1 TABLET DAILY 90 Tablet 3 05/01/20 23 Active Metoprolol Succinate ER 50 MG Oral Tablet Extended Release 24 Hour (toPROL XL)Indications:Per sistent atrial fibrillation (HCC) TAKE 3 TABLETS IN THE MORNING AND 2 TABLETS IN THE EVENING 450 Tablet 3 05/11/20 23 Active Pravastatin Sodium 40 MG Oral Tablet (Pravachol)Indicat ions:Congestive cardiomyopathy (HCC),High triglycerides,Dysl ipidemia, goal LDL below 100 TAKE 1 TABLET AT BEDTIME 90 Tablet 3 06/08/20 23 Active metFORMIN HCl ER 500 MG Oral Tablet Extended Release 24 Hour (Glucophage XR)Indications:Typ e 2 diabetes mellitus with hemoglobin A1c goal of less than 8.0% ([facility]) TAKE 1 TABLET EVERY MORNING AND 2 TABLETS WITH DINNER DAILY (DOSE INCREASE) 270 Tablet 2 06/11/20 23 Active Mirtazapine 15 MG Oral Tablet [...] of skin, Informant: Spouse, Reported on 11/11/2023 Alfuzosin HCl ER 10 MG Oral Tablet Extended Release 24 Hour (Uroxatral)Indicat ions:BPH with obstruction/lower urinary tract symptoms TAKE 1 TABLET DAILY AFTER A MEAL 90 Tablet 3 09/29/19 24 Active Additional Information Patient taking differently: 10 mg Oral Daily(Non-Specified), With evening meal, Informant: Spouse, Reported on 11/11/2023 Vitamin D3 [...] (or nasal congestion). Activ e Warfarin Sodium 5 MG Oral Tablet Take 1 Tablet by mouth once a day on Thursday, , Thursday, and Thursday only. or as directed by anticoagulation clinic Activ e Warfarin Sodium 2.5 MG Oral [...] noon. 135 Tablet 3 01/29/20 24 Active documented as of this encounter (statuses as of 02/02/2024) Active Problems Problem Noted Date Diagnosed Date Leg ulcer, right, limited to breakdown of skin 0 12/30/2023 Lumbar degenerative disc disease 10/15/2023 Symptomatic care patient 10/15/2023 Adult failure to thrive 10/15/2023 Permanent atrial fibrillation 03/14/2020 Secondary polycythemia 03/14/2020 DNR (do not resuscitate) 05/24/2019 Overview: 05/24/19 signed/scanned [facility]. Redone 02/14/20. Coronary artery disease invo lving [place] coronary artery of [place] heart without angina pectoris 04/19/2019 Dyslipidemia 04/11/2019 Acquired hypothyroidism 04/11/2019 Venous stasis dermatitis 12/10/2018 Obesity, Class I, BMI 30.0-34.9 (see actual BMI) 05/21/2018 DM type 2 with diabetic peripheral neuropathy Well adult exam 04/22/2017 Overview: 11/07 EGD [facility] mod gastritis chronic. 11/04 EMG-Abnormal study, although [...] as of this encounter (statuses as of 02/02/2024) Resolved Problems Problem Noted Date Diagnosed Date [...] 05/02/2010 03/14/2020 Anticoagulation management encounter 05/02/2010 03/14/2020 snf current use of ant icoagulant therapy 05/02/2010 [...] as of this encounter (statuses as of 02/02/2024) Immunizations Name Administration Dates Next Due COVID-19 [...] money to get more. Never true 10/09/2023 Sex and Gender Information Value Date Recorded Sex Assigned at Male 03/19/2020 8:31 AM EDT Gender Identity Male 03/19/2020 8:31 AM EDT Sexual Orientation Straight 03/19/2020 8: 31 AM EDT Job Start Date Occupation Industry Not on file Not on file Not on file documented as of this encounter Miscellaneous Notes * Telephone Encounter - Marcelina Streeter bar helper - 02/02/2024 8:22 AM EDT Patients spouse calling for a refill on multiple medications. This was last prescribed by cardiology. Transfer to specialty refill line. Thank you, Marcelina Streeter Head Machinist [facility] 02/02/2024,8:25 AM documented in this encounter Plan of Treatment Upcoming Encounters Date Type Department Care Team (Late st Contact Info) Description 02/17/2024 9:50 AM EDT Anticoagulation Pharmacy, [facility] [address] [place] [address] [facility] [address] [place] [address] 04/05/2024 8:00 AM EDT Office Visit Cardiology, [facility] [address] [place] [address] Aris Potter PA-C [address] [place] [address] 04/19/2024 9:00 AM EDT Office Visit Sleep Disorders Ctr [facility] [address] [place] [phone] Janeen Montaño CRNP [address] [place] [address] 07/13/2024 8:20 AM EST Office Visit Family Practice [facility] [address] [place] [address] Chico Scherer MD [address] [place] [address] Health Maintenance Due Date Last Done Comments COVID-19 Vaccine (2022-09 4 season) 2023 02/28/2022, 07/27/2021, 11/03/2020, Additional history exists DIG LEVEL FOR MEDICATION MONITORING YEARLY 09/12/2024 09/12/2023, 07/11/2023, 06/15/2023, Additional history exists Depression Screening 10/09/2024 10/09/2023 TSH 10/12/2024 10/12/2023, 06/18, 03/12/2023, Additional history exists Colonoscopy Discontinued 07/17/2017, 1209/2013, 09/22/2011, Additional history exists Diabetic Foot Exam Discontinued 03/19/2020, 0 04/19/2019, 03/31/2017, Additional history exists Zoster Vaccines Completed 09/07/2020, 07/3 08/2019, 05/22/2009 Influenza Vaccine (FLU shot) Completed , 06/19/2022, 04/18/2021, Additional history exists Diabetic Eye Exam Discontinued 12/11/2023, , 10/01/2021, Additional history exists Albumin/Creatinine Ratio Discontinued 024, 07/11/2023, 05/03/2022, Additional history exists documented as of this encounter Medical Devices Not on filedocumented as of this encounter Advance Directives Documents on File Type Date Recorded Patient 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
--- OUTSIDE RECORDS SUMMARY | 2024-03-05 22:46 | External Medical Summary | Summary of Care ---
Author Name Unknown Organization [facility] Address [address] [place] [address] Phone [phone] Care Team Providers Care Grain Wafer Machine Operator Name Role Phone Chico Villarreal MD Primary Care Provider + Reason for Visit * Reason Onset Date Comments Medication Refill 02/17/2024 Encounter Details Date Type Department Care Team (Late st Contact Info) Description 02/17/2024 Refill Family Practice [facility] [address] [place] [address] Chico Villarreal MD [address] [place] [address] BPH with obstruction/lower urinary tract symptoms Allergies No known active allergiesdocumented as of [...] Reported on 11/11/2023 Blood Glucose Monitoring Suppl (Myagi ULTRA SYSTEM) W/DEVICE KITIndications:DM type 2, goal A1c below 7 Use up to 4/day - Type II diabetes- #E11.9 1 Kit 0 09/13/19 16 Active ONETOUCH DELICA LANCETS 33G MISCIndications:T ype 2 diabetes mellitus with hemoglobin A1c goal of less than 7.0% (HCC) Ck FS daily as needed E11.9 100 Each 04/21/20 19 Active Acetaminophen 500 MG Oral [...] 23 Active Allopurinol 300 MG Oral Tablet (Zyloprim)Indicat [...] hemoglobin A1c goal of less than 8.0% ([facility]) Take 1 Tablet by mouth in the [...] clinic 90 Tablet 3 02/02/20 24 Active Alfuzosin HCl ER 10 MG Oral Tablet Extended Release 24 Hour (Uroxatral)Indica tions:BPH with obstruction/lower urinary tract symptoms TAKE 1 TABLET DAILY AFTER A MEAL 90 Tablet 3 02/19/20 24 Active Alfuzosin HCl ER 10 [...] (do not resuscitate) 05/24/2019 Overview: 05/24/19 signed/scanned [facility]. Redone 02/14/20. Coronary artery disease invo lving [place] coronary artery of [place] heart without angina pectoris 04/19/2019 Dyslipidemia 04/11/2019 Acquired hypothyroidism 04/11/2019 Venous stasis dermatitis 12/10/2018 Obesity, Class I, BMI 30.0-34.9 (see actual BMI) 05/21/2018 DM type 2 with diabetic peripheral neuropathy Well adult exam 04/22/2017 Overview: 11/07 EGD [facility] mod gastritis chronic. 11/04 EMG-Abnormal study, although [...] encounter Miscellaneous Notes * Telephone Encounter - Alon Olivo RP - 02/19/2024 9:32 AM EDT Signed Prescriptions: Disp Refills Alfuzosin HCl ER 10 MG Oral Tablet Extende*90 Tab*3 Sig: TAKE 1 TABLET DAILY AFTER A MEAL Authorizing Provider: CHICO VILLARREAL Ordering User: ALON OLIVO * Telephone Encounter - Marcelina Streeter, pen tester - 02/17/2024 2:04 PM EDT Please reroute Rx to [id number] [address] [place]. Pending Prescriptions: Disp Refills Alfuzosin HCl ER 10 MG Oral Tablet Extend*90 Tab*3 Last Visit: 02/15/2024 (in office), 02/02/2020 (telemedicine) 07/13/2024 If no future appointments scheduled, and last appointment is greater than a year ago, please schedule patient for a follow-up appointment Last date the medication was ordered: 09/29/2023 Patient Phone Numbers Labs: Lab Results Component Value Date/Time CREAT 1.3 (H) 02/10/2024 09:55 AM CREAT 1.0 01/29/2023 12:00 AM CREAT 1.1 09/26/2019 08:52 AM POTASSIUM 4.0 02/10/2024 09:55 AM POTASSIUM 4.4 01/29/2023 12:00 AM POTASSIUM 4.4 09/26/2019 08:52 AM TSH 2.12 10/12/2023 09:00 AM TSH 3.29 09/27/2019 03:42 PM LDLCALC 38 01/29/2023 12:00 AM LDLCALC UNINTERPRETABLE RESULT 10/13/2018 11:48 AM LDLDIRECT 58 12/30/2023 01:20 PM LDLDIRECT 68 10/13/2018 11:48 AM LDLDIRECT 58 01/23/2016 04:08 PM LDLCHOL 51 03/20/2011 08:31 AM ALT 20 10/12/2023 09:00 AM ALT 38 04/23/2019 09:28 AM HGBA1C 6.8 (H) 12/30/2023 01:20 PM HGBA1C 7.7 (A) 01/29/2023 12:00 AM HGBA1C 7.6 (H) 04/23/2019 09:28 AM documented in this encounter Plan of Treatment Upcoming Encounters Date Type Department Care Team (Late st Contact Info) Description 03/02/2024 9:20 AM EDT Office Visit Podiatry [address] [place] [address] Saranya Bolden, [place] [address] [place] [address] 03/30/2024 9:30 AM EDT Anticoagulation Pharmacy, [facility] [address] [facility] [place] [address] [facility] [address] [facility] [place] [address] 04/05/2024 8:00 AM EDT Office Visit Cardiology, [facility] [address] [facility] [place] [address] Aris Potter PA-C [address] [place] [address] 04/19/2024 9:00 AM EDT Office Visit Sleep Disorders Ctr [facility] [address] [facility] [place] [phone] Janeen Montaño CRNP [address] [facility] [place] [address] 07/13/2024 8:20 AM EST Office Visit Family Practice [facility] [address] [facility] [place] [address] Chico Villarreal MD 132 [facility] [place] [address] Health Maintenance Due Date Last Done Comments [...] as of this encounter Visit Diagnoses Diagnosis BPH with obstruction/lower urinary tract symptoms Hypertrophy of prostate with urinary obstruction and other lower urinary tract symptoms (LUTS) documented in this encounter Advance Directives Documents on File Type Date Recorded Patient Event Decorator And Designer Expl anation SALUD 10/01/2023 8:31 AM SALUD (Pierce ited DNR) Advance Directives and Living Will 03/11/2017 LIVING WILL Power of Agriculture Engineer 03/11/2017 POWER [facility] A [facility] Care Teams Grain Wafer Machine Operator Relationship Specialty Start Date End Date Chico Villarreal MD [address] [place] [address] PCP - General Family Medicine 08/27/16 documented as of this encounter
--- OUTSIDE RECORDS SUMMARY | 2024-03-05 22:46 | External Medical Summary | Summary of Care ---
Author Name Unknown Organization [facility] Address [address] [place] [address] Phone [phone] Care Team Providers Care Theatrical Scenic Designer Name Role Phone Chico Scherer MD Primary Care Provider + Reason for Visit * Reason Onset Date Comments Test Results 01/29/2024 Encounter Details Date Type Department Care Team (Late st Contact Info) Description 01/29/2024 Telephone Cardiology, [facility] [address] [employer] [address] [facility] [place] [address] Aris Potter PA-C [address] [facility] [place] [address] Test Results Allergies No known active allergiesdocumented as of [...] Reported on 11/11/2023 Blood Glucose Monitoring Suppl (AdteractiveUCH ULTRA SYSTEM) W/DEVICE KITIndications:DM type 2, goal A1c below 7 Use up to 4/day - Type II diabetes- #E11.9 1 Kit 0 09/13/19 16 Active ONETOUCH DELICA LANCETS 33G MISCIndications:T ype 2 diabetes mellitus with hemoglobin A1c goal of less than 7.0% ([facility]) Ck FS daily as needed E11.9 100 [...] 1 Tablet by mouth in the morning. 03/04/20 24 Active Famotidine 20 MG Oral Tablet [...] noon. 135 Tablet 3 01/29/20 24 Active Warfarin Sodium 5 MG Oral Tablet Take 1 Tablet by mouth once a day on Thursday, , Thursday, and Thursday only. or as directed by anticoagulation clinic 024 Discontin ued(Refil l) Aldactone 25 MG Oral TabletIndications :HTN, goal below 140/90,Congestive cardiomyopathy (HCC) Take 1 Tablet by mouth in the morning and 1 Tablet before bedtime. 180 Tablet 3 12/21/19 24 024 Discontin ued(Refil l) Furosemide 80 MG Oral Tablet (Lasix)Indication s:HTN, goal below 140/90,Congestive cardiomyopathy (HCC) Take 1 Tablet by mouth in the morning and 1 Tablet before bedtime. 12/21/19 24 024 Discontin ued(Refil l) documented as of this encounter (statuses as of 02/02/2024) Active Problems Problem Noted Date Diagnosed Date Leg ulcer, right, limited to breakdown of skin 0 12/30/2023 Lumbar degenerative disc disease 10/15/2023 Symptomatic care patient 10/15/2023 Adult failure to thrive 10/15/2023 Permanent atrial fibrillation 03/14/2020 Secondary polycythemia 03/14/2020 DNR (do not resuscitate) 05/24/2019 Overview: 05/24/19 signed/scanned [facility]. Redone 02/14/20. Coronary artery disease invo lving [place] coronary artery of [place] heart without angina pectoris 04/19/2019 Dyslipidemia 04/11/2019 Acquired hypothyroidism 04/11/2019 Venous stasis dermatitis 12/10/2018 Obesity, Class I, BMI 30.0-34.9 (see actual BMI) 05/21/2018 DM type 2 with diabetic peripheral neuropathy Well adult exam 04/22/2017 Overview: 11/07 EGD [facility] mod gastritis chronic. 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 Aris Potter PA-C Department of Cardiology * Telephone Encounter - Kiet Poole LPN - 02/02/2024 11:29 AM EDT Please see patient's MyChart reply. * Telephone Encounter - Kiet Poole LPN - 01/29/2024 10:36 AM EDT Sent patient a [email or web address] message to make aware. Lab ordered. Prescriptions pended with changes. ----- Message from Aris Potter sent at 01/29/2024 9:15 AM EDT ----- Labs with worsening renal dysfunction, very mild hyponatremia following addition of Jardiance Decrease furosemide to 80 mg in the AM and 40 mg in the afternoon Decrease spironolactone (Aldactone) to 25 mg in the AM and 12.5 mg in the afternoon Repeat a basic metabolic panel in 10-14 days. documented in this encounter Plan of Treatment Upcoming Encounters Date Type Department Care Team (Late st Contact Info) Description 02/17/2024 9:50 AM EDT Anticoagulation Pharmacy, [facility] [address] [place] [address] [facility] [address] [place] [address] 04/05/2024 8:00 AM EDT Office Visit Cardiology, [facility] [address] [place] [address] Aris Potter PA-C [address] [place] [address] 04/19/2024 9:00 AM EDT Office Visit Sleep Disorders Ctr [facility] [address] [place] [phone] Janeen Montaño CRNP [address] [place] [address] 07/13/2024 8:20 AM EST Office Visit Family Practice [facility] [address] [place] [address] Chico Scherer MD [address] [place] [address] Scheduled Orders Name Type Priority Associated Diagnoses Orde r Schedule BASIC METABOLIC PANEL Lab Routine Kidney dysfunction Hyponatremia Expected: 02/12/2024 (Approximate), Expires: 01/28/2025 Health Maintenance Due Date Last Done Comments [...] exists Zoster Vaccines Completed 09/07/2020, 02/16, 05/22/2009 Influenza Vaccine (FLU shot) Completed , 06/19/2022, 04/18/2021, Additional history exists Diabetic Eye Exam Discontinued 12/11/2023, , 10/01/2021, Additional history exists Albumin/Creatinine Ratio Discontinued 024, 07/11/2023, 05/03/2022, Additional history exists documented as of this encounter Medical Devices Not on filedocumented as of this encounter Visit Diagnoses Diagnosis Kidney dysfunction- Primary Unspecified disorder of kidney and ureter Hyponatremia Hyposmolality and/or hyponatremia HTN, goal below 140/90 Unspecified essential hypertension Congestive cardiomyopathy (HCC) Other primary cardiomyopathies documented in this encounter Advance Directives Documents on File Type Date Recorded Patient Cloth Grader Expl anation POLST 10/01/2023 8:31 AM POL (Pierce ited DNR) Advance Directives and Living Will 03/11/2017 LIVING WILL Power of Design Intern 03/11/2017 [facility] Care Teams Theatrical Scenic Designer Relationship Specialty Start Date End Date Chico Scherer MD [address] [place] [address] PCP - General Family Medicine 08/27/16 documented as of this encounter
--- OUTSIDE RECORDS SUMMARY | 2024-03-05 22:46 | External Medical Summary | Summary of Care ---
Author Name Unknown Organization [facility] Address [address] [place] [address] Phone [phone] Care Team Providers Care Restaurant Busser Name Role Phone Chico Scherer MD Primary Care Provider + Reason for Visit * Reason Onset Date Comments Test Results 01/29/2024 Encounter Details Date Type Department Care Team (Late st Contact Info) Description 01/29/2024 Telephone Cardiology, [facility] [address] [employer] [facility] [place] [address] Aris Potter PA-C [address] [employer] [address] [facility] [place] [address] Test Results Allergies No known active allergiesdocumented [...] Reported on 11/11/2023 Blood Glucose Monitoring Suppl (CodotaUCH ULTRA SYSTEM) W/DEVICE KITIndications:DM type 2, goal A1c below 7 Use up to 4/day - Type II diabetes- #E11.9 1 Kit 0 09/13/19 16 Active ONETOUCH DELICA LANCETS 33G MISCIndications:T ype 2 diabetes mellitus with hemoglobin A1c goal of less than 7.0% ([facility]) Ck FS daily as needed [...] (do not resuscitate) 05/24/2019 Overview: 05/24/19 signed/scanned [facility]. Redone 02/14/20. Coronary artery disease invo lving [place] coronary artery of [place] heart without angina pectoris 04/19/2019 Dyslipidemia 04/11/2019 Acquired hypothyroidism 04/11/2019 Venous stasis dermatitis 12/10/2018 Obesity, Class I, BMI 30.0-34.9 (see actual BMI) 05/21/2018 DM type 2 with diabetic peripheral neuropathy Well adult exam 04/22/2017 Overview: 11/07 EGD [facility] mod gastritis chronic. 11/04 EMG-Abnormal study, although [...] 05/02/2010 03/14/2020 Anticoagulation management encounter 05/02/2010 03/14/2020 meterman current use of ant icoagulant therapy 05/02/2010 [...] 01/29/2024 10:36 AM EDT Sent patient a [employer] message to make aware. Lab ordered. Prescriptions [...] Description 02/17/2024 9:50 AM EDT Anticoagulation Pharmacy, [facility] [address] [place] [address] [facility] [address] [place] [address] 04/05/2024 8:00 AM EDT Office Visit Cardiology, [facility] [address] [place] [address] Aris Potter PA-C [address] [place] [address] 04/19/2024 9:00 AM EDT Office Visit Sleep Disorders Ctr [facility] [address] [place] [phone] Janeen Montaño CRNP [address] [place] [address] 07/13/2024 8:20 AM EST Office Visit Family Practice [facility] [address] [place] [address] Chico Scherer MD [address] [place] [address] Scheduled Orders Name Type Priority Associated Diagnoses [...] Documents on File Type Date Recorded Patient Production Finisher Expl anation POLST 10/01/2023 8:31 AM POL (Pierce ited DNR) Advance Directives and Living Will 03/11/2017 LIVING WILL Power of Boilermaker Fitter 03/11/2017 [facility] Care Teams Restaurant Busser Relationship Specialty Start Date End Date Chico Scherer MD [address] [place] [address] PCP - General Family Medicine 08/27/16 documented as of this encounter
--- OUTSIDE RECORDS SUMMARY | 2024-03-05 22:46 | External Medical Summary ---
Author Name Unknown Address Unknown Organization K0[facility] [address] [place] [address] Laboratory Report Ordering Provider Test Date Status DEBORAH POOLE 02/17/2024 09:37:12 Final Therapeutic ranges for non-o perative patients:
Prophylaxsis/treatment of DVT: (Range:2.0-3.0)
Treatment of pulmonary embolism:(Range:2.0-3.0)
Prevention of systemic embolism from:
-tissue heart valves
-acute myocardial infarction
-valvular heart disease
-atrial fibrillation
(Range: 2.0-3.0)
Mechanical prosthetic valves: (Range: 2.5-3.5) Observation Date Value Abnormality Reference (Units ) Status INR in Capillary blood by Coagulation assay 02/17/2024 09:37:12 2.5 (INR) Final Performing Location [facility] [address] [place] [address]
--- OUTSIDE RECORDS SUMMARY | 2024-03-05 22:46 | External Medical Summary | Summary of Care ---
Author Name Unknown Organization [facility] Address [address] [place] [address] Phone [phone] Care Team Providers Care Web Applications Developer Name Role Phone Chico Scherer MD Primary Care Provider + Reason for Visit * Reason Comments Outpatient Testing Encounter Details Date Type Department Care Team (Late st Contact Info) Description 02/10/2024 11:10 AM EDT Laboratory Laboratory, [facility] [address] [place] [phone] [employer] [address] [place] [address] Kidney dysfunction; Hyponatremia Allergies No known active allergiesdocumented as of this encounter (statuses as of 02/10/2024) Medications Medication Sig Dispensed Refills Start Date [...] Reported on 11/11/2023 Blood Glucose Monitoring Suppl ([employer] ULTRA SYSTEM) W/DEVICE KITIndications:DM type 2, goal A1c below 7 Use up to 4/day - Type II diabetes- #E11.9 1 Kit 0 09/13/19 16 Active ONETOUCH DELICA LANCETS 33G MISCIndications:Ty pe 2 diabetes mellitus with hemoglobin A1c goal of less than 7.0% ([facility]) Ck FS daily as needed E11.9 100 [...] hemoglobin A1c goal of less than 8.0% ([facility]) TAKE 1 TABLET EVERY MORNING AND 2 [...] clinic 90 Tablet 3 02/02/20 24 Active documented as of this encounter (statuses as of 02/10/2024) Active Problems Problem Noted Date Diagnosed Date Leg ulcer, right, limited to breakdown of skin 0 12/30/2023 Lumbar degenerative disc disease 10/15/2023 Symptomatic care patient 10/15/2023 Adult failure to thrive 10/15/2023 Permanent atrial fibrillation 03/14/2020 Secondary polycythemia 03/14/2020 DNR (do not resuscitate) 05/24/2019 Overview: 05/24/19 signed/scanned [facility] [employer] health. Redone 02/14/20. Coronary artery disease invo lving muck[place] coronary artery of [place] heart without angina pectoris 04/19/2019 Dyslipidemia 04/11/2019 Acquired hypothyroidism 04/11/2019 Venous stasis dermatitis 12/10/2018 Obesity, Class I, BMI 30.0-34.9 (see actual BMI) 05/21/2018 DM type 2 with diabetic peripheral neuropathy Well adult exam 04/22/2017 Overview: 11/07 EGD [facility] mod gastritis chronic. 11/04 EMG-Abnormal study, [...] as of this encounter (statuses as of 02/10/2024) Resolved Problems Problem Noted Date Diagnosed Date [...] 05/02/2010 03/14/2020 Anticoagulation management encounter 05/02/2010 03/14/2020 penitentiary current use of ant icoagulant therapy 05/02/2010 [...] as of this encounter (statuses as of 02/10/2024) Immunizations Name Administration Dates Next Due COVID-19 [...] on file documented as of this encounter Plan of Treatment Upcoming Encounters Date Type Department Care Team (Late st Contact Info) Description 02/17/2024 9:50 AM EDT Anticoagulation Pharmacy, [facility] [address] [place] [address] [facility] [address] [place] [address] 04/05/2024 8:00 AM EDT Office Visit Cardiology, [facility] [address] [place] [address] Aris Potter PA-C [address] [place] [address] 04/19/2024 9:00 AM EDT Office Visit Sleep Disorders Ctr [facility] [address] [place] [phone] Janeen Montaño CRNP [address] [address] 07/13/2024 8:20 AM EST Office Visit Family Practice [facility] [address] [place] [address] Chico Scherer MD [address] [place] [address] Pending Results Name Type Priority Associated Diagnoses Date /Time BASIC METABOLIC PANEL Lab Routine Kidney dysfunction Hyponatremia 02/10/2024 9:55 AM EDT Health Maintenance Due Date Last [...] of this encounter Visit Diagnoses Diagnosis Kidney dysfunction Unspecified disorder of kidney and ureter Hyponatremia Hyposmolality and/or hyponatremia documented in this encounter Advance Directives Documents on File Type Date Recorded Patient Litigation Secretary Expl anation POLST 10/01/2023 8:31 AM POLST (Pierce ited DNR) Advance Directives and Living Will 03/11/2017 LIVING WILL Power of Manager Of Enterprise 03/11/2017 [facility] Care Teams Web Applications Developer Relationship Specialty Start Date End Date Chico Scherer MD [address] [place] [address] PCP - General Family Medicine 08/27/16 documented as of this encounter
--- OUTSIDE RECORDS SUMMARY | 2024-03-05 22:46 | External Medical Summary | Summary of Care ---
Author Name Unknown Organization [facility] Address [address] [place] [address] Phone [phone] Care Team Providers Care Insulation Hoseman Name Role Phone Chico Scherer MD Primary Care Provider + Reason for Referral * Evaluate & Treat - Unlimited Visits (Within 30 days (routine)) - Authorized Specialty Diagnoses / Procedures Referred By Beckie murdock Referred To Contact Podiatry Diagnoses Right foot pain Rambo Guy CR[facility] [address] [facility] [address] Referral ID Status Reason Start Date Expiration Date Visits Requested Visits Authorized [id number] Authorized Specialty Services Required 02/15/2024 08/17/[phone] Question Answer Referral Priority Within 30 days (routine) [facility] Which condition are you referring this patient for? General Foot Pain Reason for Visit * Reason Comments Pain Toe to foot both fee t - worse in the right for one time; spouse states it was bad this past night Encounter Details Date Type Department Care Team (Latest Contact Info) Description 02/15/2024 8:20 AM EDT Office Visit Family Practice [facility] [address] [place] [address] Rambo Guy CRNP [address] [facility] [place] [address] Right foot pain*; HTN, goal below 130/80; Generalized weakness; Congestive cardiomyopathy (HCC) Allergies No known active allergiesdocumented as of this encounter (statuses as of 02/16/2024) Medications Medication Sig Dispensed Refills Start Date [...] Reported on 11/11/2023 Blood Glucose Monitoring Suppl ([employer] SYSTEM) W/DEVICE KITIndications:DM type 2, goal A1c below 7 Use up to 4/day - Type II diabetes- #E11.9 1 Kit 0 09/13/19 16 Active [employer] Wall StTOUCH DELICA LANCETS 33G MISCIndications:Ty pe 2 diabetes mellitus with hemoglobin A1c goal of less than 7.0% ([facility]) Ck FS daily as needed E11.9 100 [...] hemoglobin A1c goal of less than 8.0% ([facility]) TAKE 1 TABLET EVERY MORNING AND 2 [...] as of this encounter (statuses as of 02/16/2024) Active Problems Problem Noted Date Diagnosed Date Leg ulcer, right, limited to breakdown of skin 0 12/30/2023 Lumbar degenerative disc disease 10/15/2023 Symptomatic care patient 10/15/2023 Adult failure to thrive 10/15/2023 Permanent atrial fibrillation 03/14/2020 Secondary polycythemia 03/14/2020 DNR (do not resuscitate) 05/24/2019 Overview: 05/24/19 signed/scanned [facility]. Redone 02/14/20. Coronary artery disease invo lving chitimacha coronary artery of [place] heart without angina pectoris 04/19/2019 Dyslipidemia 04/11/2019 Acquired hypothyroidism 04/11/2019 Venous stasis dermatitis 12/10/2018 Obesity, Class I, BMI 30.0-34.9 (see actual BMI) 05/21/2018 DM type 2 with diabetic peripheral neuropathy Well adult exam 04/22/2017 Overview: 11/07 EGD [facility] mod gastritis chronic. 11/04 EMG-Abnormal [...] as of this encounter (statuses as of 02/16/2024) Resolved Problems Problem Noted Date Diagnosed Date [...] 05/02/2010 03/14/2020 Anticoagulation management encounter 05/02/2010 03/14/2020 emt intermediate current use of ant icoagulant therapy 05/02/2010 [...] as of this encounter (statuses as of 02/16/2024) Immunizations Name Administration Dates Next Due COVID-19 [...] 0 [birth year]/17[birth year]1969 - 08/17/1979 Smokeless Tobacco: Never Tobacco Cessation:Counseling Given: Not Answered Comments:Quit about 1979. Also smoked cigars during stated time Alcohol Use [...] on file documented as of this encounter Last Filed Vital Signs Vital Sign Reading Time Taken Comments Blood Pressure 104/66 02/15/2024 8:23 AM EDT Pulse 68 02/15/2024 8:23 AM EDT Temperature 36.4 C (97.5 F) 02/15/2024 8:23 AM ED T Respiratory Rate 16 02/15/2024 8:23 AM EDT Oxygen Saturation - - Inhaled Oxygen Concentration - - Weight 115.2 kg (253 lb 14.4 oz) 02/15/2024 8:23 AM EDT Height - - Body Mass Index 36.43 10/16/2023 3:20 PM EST documented in this encounter Progress Notes * Rambo Guy CRNP - 02/15/2024 8:30 AM EDT Images from the original note were not included. Acute Family Medicine Visit History of Present Illness Brionna Bone is a pleasant 83 year old male with complex PMH listed below presenting with toe to foot pain in both feet (worse in right). Accompanied by spouse Maria Esther. Right toe pain on night, stopped on Thursday.He does not have pain today. He has neuropathy and usually doesn't feel pain in foot. No increased swelling or redness noted. Usually spends time in sitting. Wears compression bands. 4lbs weight gain but also had his cell phone on. Checking Home weight was 249 lbs at baseline yesterday. Social History Socioeconomic History Marital status: Spouse name: Not on file Number of children: Not on file Years of education: Not on file Highest education level: Not on file Occupational History Not on file Tobacco Use Smoking status: Former Current packs/day: 0.00 Average packs/day: 1 pack/day for 10.0 years (10.0 ttl pk-yrs) Types: Cigarettes Start date: 08/17/1969 Quit date: 08/17/1979 Years since quittin.5 Smokeless tobacco: Never Tobacco comments: Quit about 1979. Also smoked cigars during stated time Vaping Use Vaping status: Never Used Substance and Sexual Activity Alcohol use: No Drug use: No Sexual activity: Yes Other Topics Concern Not on file Social History Narrative Retired in 2002. 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 Social Determinants of Health Financial Resource Strain: Low Risk (10/09/2023) Financial Resource Strain Do you have any trouble paying for your medications, or do you think you might in the future? (Adult - for ages 18 years and over): No Does your family have trouble paying for medicine? (Household - for ages 0-17 years): Not on file Food Insecurity: No Food Insecurity (10/09/2023) Food Insecurity Do you need food for this week? (Adult - for ages 18 years and over): No Are you able to get enough food for your family? (Household - for ages 0-17 years): Not on file Does your family need food this week? (Household - for ages 0-17 years): Not on file Do you always have enough food for your family? (Household - for ages 0-17 years): Not on file Transportation Needs: No Transportation Needs (10/09/2023) Transportation Needs Do you have trouble getting a ride to medical visits or work? (Adult - for ages 18 years and over):Never True Does your family have a hard time getting a ride to doctors visits? (Household - for ages 0-17 years): Not on file Has lack of transportation kept you from medical appointments, meetings, work, or from getting things needed for daily living? Check all that apply. (Adult - for ages 18 years and over): Not on file Do you (or your family) have trouble finding or paying for a ride (transportation)? (Household - for ages 0-17 years): Not on file Social Connections: Socially Integrated (10/09/2023) Social Connections How often do you feel lonely or isolated from those around you? (Adult - for ages 18 years and over): Never Housing Stability: Low Risk (10/09/2023) Housing Stability Do you currently live in a care home or have no steady place to sleep at night? (Adult - for ages 18 years and over): No Do you think you are at risk of becoming homeless? (Adult - for ages 18 years and over): No Does your family worry about paying for your home or becoming homeless? (Household - for ages 0-17 years): Not on file Are you homeless or worried that you might be in the future? (Adult - for ages 18 years and over): Not on file Are you (or your family) homeless or worried that you might be in the future? 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 adenomatous polyps-repeat colonoscopy in 2 years Coronary artery disease involving chitimacha coronary artery of chitim[place] heart without angina pectoris 04/19/2019 DM type [...] upper extremities 06/01/2017 Venous stasis dermatitis 12/10/2018 Past Surgical History: Procedure Laterality Date CATHETERIZE LEFT HEART THRU SKIN 04/29/2010 20-30% mid LAD lesion; other smaller diffuse lesions;EF 25-30% COLONOSCOPY THRU STOMA, W/BIOPSY 09/22/2011 adenomatous polyps-repeat colonoscopy in 2 years COLONOSCOPY W/ LESION REMOVAL, SNARE 01/23/2010 multiple polyps, path shows villous tissue,MSI testing REPEAT in 1 year COLONOSCOPY, DIAGNOSTIC (RECTUM) 07/18/2014 adenomatous polyps, repeat 3 yrs/done @ [facility] COLONOSCOPY, DIAGNOSTIC (RECTUM) 07/17/2017 adenomatous polyps, repeat 3 yrs/[facility] COLONOSCOPY, GI REFERRAL OP 03/2005 no polyps- recheck in 3 years COLONOSCOPY, REMOVE LESION 03/2004 polyp removed COLORECTAL CANCER SCREEN; COLON approx 1996- negative EGD, FLEXIBLE, DIAGNOSTIC N/A 10/28/2023 biopsies show inflammation/EGD/[facility] FOOT/TOE SURGERY NEC Left 07/22/2016 gout REMOVAL OF APPENDIX REMOVAL OF TONSILS, UNDER AGE 12 age 9 REMOVE CATARACT, INSERT LENS PROSTH 02/12/2009 left- Dr. Diehl REMOVE CATARACT, INSERT LENS PROSTH 03/01/2009 right - Dr. Diehl REPAIR INGUINAL HERNIA, UNDER AGE 5 infant REPAIR INITIAL INGUINAL HERNIA REDUCIBLE AGE 5 OR MORE right hernia- recurred in [facility] 12/03/2023 Dr Alon Lincoln [facility]., +bladder lesion biopsy Current Outpatient Medications Medication Sig Dispense Refill Polyethylene Glycol 3350 17 GM Oral Packet (MiraLax) Take 1 Packet by mouth in the morning. Warfarin Sodium 5 MG Oral Tablet (Coumadin) Take 1 Tablet by mouth once a day on Thursday, ,Thursday, and Thursday only. or as directed by anticoagulation clinic 90 Tablet 3 Aldactone 25 MG Oral Tablet Take 1 Tablet by mouth daily AND 0.5 Tablets daily at noon. 135 Tablet 3 Furosemide 80 MG Oral Tablet (Lasix) Take 1 Tablet by mouth daily AND 0.5 Tablets daily at noon. 135 Tablet 3 Pantoprazole Sodium 40 MG Oral Tablet Delayed Release (Protonix) TAKE 1 TABLET BY MOUTH EVERY MORNING 30 MINUTES BEFORE THE FIRST MEAL OF THE DAY. DO NOT CRUSH, SPLIT OR CHEW THE TABLET. 90 Tablet 1 traMADol HCl 50 MG Oral Tablet (Ultram) Take 1 Tablet by mouth 2 times a day as needed (pain). 60 Tablet 0 OneTouch Ultra Test In Vitro Strip (Glucose Blood) TEST DAILY DIRECTED 100 Strip 3 Empagliflozin 10 MG Oral Tablet (Jardiance) Take 1 Tablet by mouth in the morning. 30 Tablet 11 Famotidine 20 MG Oral Tablet (Pepcid) Take 1 Tablet by mouth in the morning. 90 Tablet 0 Finasteride 5 MG Oral Tablet (Proscar) Take 1 Tablet by mouth in the morning. Calcium Carbonate Antacid 500 MG Oral Tablet Chewable (Tums) Take 1 Tablet by mouth 2 times a day as needed for Heartburn. Digoxin 125 MCG Oral Tablet (Digox) Take 1 Tablet by mouth once a day on Thursday, Thursday, and Thursday only. Fluticasone Propionate 50 MCG/ACT Nasal Suspension (Flonase) Administer 2 Sprays into nostril dailyas needed for Allergies or Other (or nasal congestion). Potassium Chloride ER 20 MEQ Oral Tablet Extended Release Take 1 Tablet by mouth in the morning. ProAir HFA 108 (90 Base) MCG/ACT Inhalation Aerosol Solution Inhale 2 Puffs by mouth 4 times a day as needed for Wheezing. Vitamin D3 50 MCG (2000 UT) Oral Capsule Take 1 Capsule by mouth in the morning. Can take 2 of the 1,000 unit capsules. Warfarin Sodium 2.5 MG Oral Tablet (Coumadin) Take 1 Tablet by mouth once a day on Thursday, Thursday, and Thursday only. Or as directed by anticoagulation clinic Alfuzosin HCl ER 10 MG Oral Tablet Extended Release 24 Hour (Uroxatral) TAKE 1 TABLET DAILY AFTER AMEAL (Patient taking differently: Take 1 Tablet by mouth daily. With evening meal) 90 Tablet 3 Mupirocin 2 % External Ointment (Bactroban) APPLY TOPICALLY TO AFFECTED AREA THREE TIMES A DAY FOR UP TO 14 DAYS (Patient taking differently: Apply 75 g topically to affected area 3 times a day as needed for Other (skin irritation to folds of skin).) 75 g 29 Colchicine 0.6 MG Oral Tablet 2 tab at start of gout attack, 1 pill 1 hour later. (3 pills total per attack). Stop twice daily dosing. 12 Tablet 3 Mirtazapine 15 MG Oral Tablet (Remeron) Take 1 Tablet by mouth at bedtime. 30 Tablet 5 Ondansetron 4 MG Oral Tablet Disintegrating (Zofran) Place 1 Tablet on tongue every 8 hours as needed for Nausea. dissolve on tongue. 90 Tablet 1 metFORMIN HCl ER 500 MG Oral Tablet Extended Release 24 Hour (Glucophage XR) TAKE 1 TABLET EVERY MORNING AND 2 TABLETS WITH DINNER DAILY (DOSE INCREASE) 270 Tablet 2 Pravastatin Sodium 40 MG Oral Tablet (Pravachol) TAKE 1 TABLET AT BEDTIME 90 Tablet 3 Metoprolol Succinate ER 50 MG Oral Tablet Extended Release 24 Hour (toPROL XL) TAKE 3 TABLETS IN THE MORNING AND 2 TABLETS IN THE EVENING 450 Tablet 3 Allopurinol 300 MG Oral Tablet (Zyloprim) TAKE 1 TABLET DAILY 90 Tablet 3 Levothyroxine Sodium 88 MCG Oral Tablet (Levoxyl) TAKE 1 TABLET DAILY FOR THYROID 90 Tablet 3 Ketoconazole 2 % External Cream Apply topically to affected area 2 times a day. Apply to rash on face., under chest & groin rash (Patient taking differently: Apply 1 Application topically to affected area 2 times a day as needed for Other (for rash). Apply to rash on face., under chest & groin rash) 180 g 1 Lactulose 10 GM/15ML Oral Solution (Constulose) TAKE 15 MILLILITER BY MOUTH EVERY DAY IN THE MORNING AND TAKE 15 MILLILITER BY MOUTH BEFORE BEDTIME NEEDED FOR CONSTIPATION 240 mL 12 Acetaminophen 500 MG Oral Capsule Take 2 Capsules by mouth every 6 hours as needed for Pain, Moderate. Evernote LANCETS 33G MISC Ck FS daily as needed E11.9 100 Each 5 Blood Glucose Monitoring Suppl ([employer] SYSTEM) W/DEVICE KIT Use up to 4/day - Type II diabetes- #E11.9 1 Kit 0 ASPIRIN 81 MG PO CHEW take one tablet daily 100 Tab 3 MULTIVITAMINS PO TABS one daily Polyethylene Glycol 3350 17 GM/SCOOP Oral Powder (MiraLax) Take 17 g by mouth daily as needed for Constipation. (Patient not taking: Reported on 02/15/2024) DOCUSATE SODIUM 100 MG PO CAPS One pill by mouth daily for constipation (Patient not taking: Reported on 11/11/2023) 90 Cap 3 No current facility-administered medications for this visit. Review of patient's allergies indicates: No Known Allergies Most Recent Immunizations Administered Date(s) Administered COVID-19 mRNA, LNP-s, No Preserve, 2-Dose Series (Moderna) 11/03/2020 COVID-19, mRNA, LNP-s, PF, Booster, 100mcg/0.5mg (Moderna) 02/28/2022 H1N1 2009 Influenza, IM 09/17/2009 Pneumococcal Conjugate Vacc, 13 Valent (Prevnar) 04/19/2015 Pneumococcal Polysaccharide PPV23 (Pneumovax) 06/11/2012 Season Influenza, Quad, PF, Adjuvanted, 65+ Yrs, IM (FLUAD) 05/04/2020 Seasonal Influenza Virus Vaccine, Unspecified Formulation 05/17/2020 Seasonal Influenza, PF, 6 M & above, IM , (FluLaval or Fluzone) 04/18/2021 Seasonal Influenza, QUAD, with Preserv, 6 mons & Above, 0.5 mL, IM 05/21/2017 Seasonal Influenza, Quad, Nasal (Flumist) 05/21/2017 Seasonal Influenza, Quadrivalent Hd (Fluzone Hd) 07/03/2023 Seasonal Influenza, Quadrivalent, No Preserve, IM 06/05/2016 Seasonal Influenza, Split, IIV3, With Preserve, Inj 05/09/2017 Seasonal Influenza, Trivalent, Adjuvanted, 65+ yrs 04/19/2019 TD - Tetanus/Diptheria (ADULT) 06/29/2006 TDAP (age 10 and older)(Boostrix) 03/12/2023 Varicella Zoster Vaccine (Adult) 05/22/2009 Zoster Vaccine Recombinant (Shingrix) 09/07/2020 Review of Systems: Physical Exam BP 104/66 (BP Site: Left Arm, BP Position: Sitting, BP Cuff Size: Large) | Pulse 68 | Temp 36.4 C(97.5 F) (Tympanic) | Resp 16 | Wt 115.2 kg (253 lb 14.4 oz) | BMI 36.43 kg/m | BSA 2.39 m Physical Exam Musculoskeletal: Feet: Feet: Comments: Non pitting edema, no erythema, warmth or skin breakdown noted. Assessment and Plan 1. Right foot pain Unclear etiology - lasted few hours Currently not in pain Rec further eval from podiatry - PODIATRY REFERRAL OP 2. HTN, goal below 130/80 Stable, managed by cardiology 3. Generalized weakness 4. Congestive cardiomyopathy (HCC) Wrap-Up I have advised the patient to call our office with any worsening or new symptoms. I spent a total of 20-29 minutes (exact time 25 mins) on the date of service in preparation, delivery, and documentation of the care provided to Brionna Bone excluding any time spent in the performance of separately billed services. Rambo Guy, MSN, COTTAGE MASTER [facility] documented in this encounter Nursing Notes * Alon Lamas, RN - 02/15/2024 8:25 AM EDT Chief Complaint Patient presents with Pain Toe to foot both feet - worse in the right for one time; spouse states it was bad this past night documented in this encounter Plan of Treatment Upcoming Encounters Date Type Department Care Team (Late st Contact Info) Description 02/17/2024 9:50 AM EDT Anticoagulation Pharmacy, [address] [place] [address] Jae [facility] [address] [place] [address] 03/02/2024 9:20 AM EDT [facility] [address] [place] [address] Saranya Bolden DPM [address] [place] [address] 04/05/2024 8:00 AM EDT Office Visit Cardiology, [facility] [address] [facility] [place] [address] Aris Potter PA-C [address] [place] [address] 04/19/2024 9:00 AM EDT Office Visit Sleep Disorders Ctr [facility] [address] [facility] [place] [phone] Janeen Montaño CRNP [address] [place] [address] 07/13/2024 8:20 AM EST Office Visit Family Practice [facility] [address] [place] [address] Chico Scherer MD [address] [place] [address] Scheduled Referrals Name Type Priority Associated Diagnoses Orde r Schedule PODIATRY REFERRAL OP Referral Within 30 days (routine) Right foot pain Ordered: 02/15/2024 Health Maintenance Due Date Last Done Comments COVID-19 Vaccine (2022-2 4 season) 2023 02/28/2022, 07/27/2021, 11/03/2020, Additional history exists Influenza Vaccine (FLU shot) (#1) 2024 07/03/2023, 06/19/2022, 04/18/2021, Additional history exists DIG LEVEL FOR MEDICATION MONITORING YEARLY 09/12/2024 09/12/2023, 07/11/2023, 06/15/2023, Additional history exists Depression Screening 10/09/2024 10/09/2023 TSH 10/12/2024 10/12/2023, 06/18, 03/12/2023, Additional history exists Colonoscopy Discontinued 07/17/2017, 12/0 09/2013, 09/22/2011, Additional history exists Diabetic Foot [...] Right foot pain- Primary Pain in limb HTN, goal below 130/80 Unspecified essential hypertension Generalized weakness Other malaise and fatigue Congestive cardiomyopathy (HCC) Other primary cardiomyopathies documented in this encounter Advance Directives Documents on File Type Date Recorded Patient Airplane Rental Clerk Expl anation POLST 10/01/2023 8:31 AM POL (Pierce ited DNR) Advance Directives and Living Will 03/11/2017 LIVING WILL Power of Boarder Hand 03/11/2017 [facility] A Care Teams Insulation Hoseman Relationship Specialty Start Date End Date Chico Scherer MD [address] [facility] [place] [address] PCP - General Family Medicine 08/27/16 documented as of this encounter"
--- OUTSIDE RECORDS SUMMARY | 2024-03-05 22:46 | External Medical Summary | Summary of Care ---
Author Name Unknown Organization [facility] Address [address] [place] [address] Phone [phone] Care Team Providers Care Pelt Grader Name Role Phone Chico Scherer MD Primary Care Provider + Reason for Visit * Reason Onset Date Comments Test Results 01/29/2024 Encounter Details Date Type Department Care Team (Late st Contact Info) Description 01/29/2024 Telephone Cardiology, [facility] [address] [employer] [facility] [address] Aris Potter PA-C [address] [employer] [place] [address] Test Results Allergies No known active allergiesdocumented [...] Reported on 11/11/2023 Blood Glucose Monitoring Suppl (CorCardiaUCH ULTRA SYSTEM) W/DEVICE KITIndications:DM type 2, goal A1c below 7 Use up to 4/day - Type II diabetes- #E11.9 1 Kit 0 09/13/19 16 Active ONETOUCH DELICA LANCETS 33G MISCIndications:T ype 2 diabetes mellitus with hemoglobin A1c goal of less than 7.0% ([facility]) Ck FS daily as needed E11.9 100 [...] (do not resuscitate) 05/24/2019 Overview: 05/24/19 signed/scanned [facility]. Redone 02/14/20. Coronary artery disease invo lving [place] coronary artery of [place] heart without angina pectoris 04/19/2019 Dyslipidemia 04/11/2019 Acquired hypothyroidism 04/11/2019 Venous stasis dermatitis 12/10/2018 Obesity, Class I, BMI 30.0-34.9 (see actual BMI) 05/21/2018 DM type 2 with diabetic peripheral neuropathy Well adult exam 04/22/2017 Overview: 11/07 EGD [facility] mod gastritis chronic. 11/04 EMG-Abnormal [...] 05/02/2010 03/14/2020 Anticoagulation management encounter 05/02/2010 03/14/2020 skilled nursing current use of ant icoagulant therapy 05/02/2010 [...] encounter Miscellaneous Notes * Telephone Encounter - Kiet Poole LPN - 02/02/2024 11:29 AM EDT Please see patient's MyChart reply. * Telephone Encounter - Kiet Poole LPN - 01/29/2024 10:36 AM EDT Sent patient a Yicha [employer] message to make aware. Lab ordered. Prescriptions [...] Description 02/17/2024 9:50 AM EDT Anticoagulation Pharmacy, [facility] [address] [place] [address] Jae [facility] Gwen [address] [place] [address] 04/05/2024 8:00 AM EDT Office Visit Cardiology, [facility] [address] [place] [address] Aris Potter PA-C [address] [place] [place] [address] 04/19/2024 9:00 AM EDT Office Visit Sleep Disorders Ctr 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
--- OUTSIDE RECORDS SUMMARY | 2024-03-05 22:46 | External Medical Summary | Summary of Care ---
Author Name Unknown Organization [facility] Address [address] [place] [address] Phone [phone] Care Team Providers Care Biomedical Equipment Specialist Name Role Phone Chico Scherer MD Primary Care Provider + Reason for Visit * Reason Comments Dosage Adjustment In Person (Anticoag Cl inic) Encounter Details Date Type Department Care Team (Latest Contact Info) Description 02/17/2024 9:50 AM EDT [facility] [address] [place] [address] [address] Anticoagulation management encounter*; assisted current use of anticoagulant therapy Allergies No known active allergiesdocumented as of this encounter (statuses as of 02/17/2024) Medications Medication Sig Dispensed Refills Start Date [...] Reported on 11/11/2023 Blood Glucose Monitoring Suppl (Whistle GroupTOUCH ULTRA SYSTEM) W/DEVICE KITIndications:DM type 2, goal A1c below 7 Use up to 4/day - Type II diabetes- #E11.9 1 Kit 0 09/13/19 16 Active ONETOUCH DELICA LANCETS 33G MISCIndications:Ty pe 2 diabetes mellitus with hemoglobin A1c goal of less than 7.0% ([facility]) Ck FS daily as needed E11.9 [...] hemoglobin A1c goal of less than 8.0% ([facility]) TAKE 1 TABLET EVERY MORNING AND 2 [...] as of this encounter (statuses as of 02/17/2024) Active Problems Problem Noted Date Diagnosed Date Leg ulcer, right, limited to breakdown of skin 0 12/30/2023 Lumbar degenerative disc disease 10/15/2023 Symptomatic care patient 10/15/2023 Adult failure to thrive 10/15/2023 Permanent atrial fibrillation 03/14/2020 Secondary polycythemia 03/14/2020 DNR (do not resuscitate) 05/24/2019 Overview: 05/24/19 signed/scanned [facility] [employer]. Redone 02/14/20. Coronary artery disease invo lving [place] coronary artery of [place] heart without angina pectoris 04/19/2019 Dyslipidemia 04/11/2019 [...] as of this encounter (statuses as of 02/17/2024) Resolved Problems Problem Noted Date Diagnosed Date [...] 05/02/2010 03/14/2020 Anticoagulation management encounter 05/02/2010 03/14/2020 oysterman current use of ant icoagulant therapy 05/02/2010 [...] as of this encounter (statuses as of 02/17/2024) Immunizations Name Administration Dates Next Due COVID-19 [...] No 10/09/2023 Does the household have a [facility] source of income? (Household - for ages [...] as of this encounter Progress Notes * Madison Ackerman RPh - 02/17/2024 9:34 AM EDT Medication Therapy Disease Management - Anticoagulation Patient: Brionna Bone | : 1940 Subjective Patient-Reported Symptoms: Patient Findings Negatives: Signs/symptoms of thrombosis, Signs/symptoms of bleeding, Change in health, Change in alcohol use, Change in activity, Upcoming invasive procedure, Missed doses, Extra doses, Change in medications, Change in diet/appetite, Bruising Objective Current Warfarin Dose As of 02/17/2024 Warfarin maintenance plan: 5 mg (5 mg x 1) every Tue, Cely, Sat; 2.5 mg (5 mg x 0.5) all other days INR Result As of 02/17/2024 INR goal: 2.0-3.0 INR used for dosin.5 (02/17/2024) Assessment & Plan Warfarin Plan As of 02/17/2024 Full warfarin instructions: 5 mg every Tue, Cely, Sat; 2.5 mg all other days No change documented: Madison Ackerman doyle Next INR check: 03/30/2024 Repeat PT/INR in 6 week(s) Weekly dose: not changed Additional Dosing Information: Madison Ackerman [facility] Clinical Pharmacist 02/17/2024, 9:43 AM documented in this encounter Plan of Treatment Upcoming Encounters Date Type Department Care Team (Late st Contact Info) Description 03/02/2024 9:20 AM EDT Office Visit [facility] [address] [place] [address] Saranya Bolden DPM [address] [facility] [place] [address] 03/30/2024 9:30 AM EDT Anticoagulation Pharm[facility], [facility] [address] [place] [address] [facility] [address] [place] [address] 04/05/2024 8:00 AM EDT Office Visit Cardiology, [facility] [address] [place] [address] Aris Potter PACiraC [address] [place] [address] 04/19/2024 9:00 AM EDT Office Visit Sleep Disorders Ctr [facility] [address] [place] [phone] Janeen Montaño CRNP [address] [place] [address] 07/13/2024 8:20 AM EST Office Visit [facility] [address] [place] [address] Chioc Scherer MD [address] [place] [address] Health Maintenance Due Date Last Done Comments COVID-19 Vaccine (5 - 2023-2 4 season) 2023 02/28/2022, 07/27/2021, 11/03/2020, Additional [...] Not on filedocumented as of this encounter Procedures Procedure Name Priority Date/Time Associated Diagnosis Comments INR FINGERSTICK, POINT OF CARE STAT 02/17/2024 9:37 AM EDT Anticoagulation management encounter oysterman current use of anticoagulant therapy documented in this encounter Results * INR FINGERSTICK, POINT OF CARE (02/17/2024 9:37 AM EDT) Fingerstick INR 2.5 INR 9:43 AM EDT [facility] [place] [facility] Blood 02/17/2024 9:37 AM EDT 02/17/2024 9:43 AM EDT Narrative [facility] [place] [facility]10 - 02/17/2024 9:43 AM EDT Therapeutic ranges for non-operative patients: Prophylaxsis/treatment of DVT: (Range:2.0-3.0) Treatment of pulmonary embolism:(Range:2.0-3.0) Prevention of systemic embolism from: -tissue heart valves -acute myocardial infarction -valvular heart disease -atrial fibrillation (Range: 2.0-3.0) Mechanical prosthetic valves: (Range: 2.5-3.5) Madisonjennifer Segura Tyron [facility] LAB POINT OF C ARE TEST DOCKED DEVICE UNSOLICITED RESULTS [facility]10 [address] [place] [address] documented in this encounter Visit Diagnoses Diagnosis Anticoagulation management encounter- Primary Encounter for therapeutic drug monitoring oysterman current use of anticoagulant therapy documented in this encounter Advance Directives Documents on File Type Date Recorded Patient Knee Bolter Expl anation POLST 10/01/2023 8:31 AM POLST (Pierce ited DNR) Advance Directives and Living Will 03/11/2017 LIVING WILL Power of Vulnerability Assessment Analyst 03/11/2017 POWER OF A [facility] Care Teams Biomedical Equipment Specialist Relationship Specialty Start Date End Date Chico Scherer MD [address] [place] [address] PCP - General Family Medicine 08/27/16 documented as of this encounter"
--- OUTSIDE RECORDS SUMMARY | 2024-03-05 22:46 | External Medical Summary | Summary of Care ---
Author Name Unknown Organization [facility] Address [address] [place] [address] Phone [phone] Care Team Providers Care Pen Maker Name Role Phone Chico Villarreal MD Primary Care Provider + Reason for Visit * Reason Onset Date Comments Medication Refill 02/17/2024 Encounter Details Date Type Department Care Team (Late st Contact Info) Description 02/17/2024 Refill Family Practice [facility] 132 [place] [address] Chico Villarreal MD [address] [place] [address] Persistent atrial fibrillation (HCC); Gouty arthropathy; Type 2 diabetes mellitus with hemoglobin A1c goal of less than 8.0% (HCC); Congestive cardiomyopathy (HCC); PURE HYPERGLYCERIDEMIA; Dyslipidemia, goal LDL below 100 Allergies No known active allergiesdocumented as of [...] Reported on 11/11/2023 Blood Glucose Monitoring Suppl (ONETOUCH ULTRA SYSTEM) W/DEVICE KITIndications:DM type 2, goal A1c below 7 Use up to 4/day - Type II diabetes- #E11.9 1 Kit 0 09/13/19 16 Active [employer] DELICA LANCETS 33G MISCIndications:T ype 2 diabetes mellitus with hemoglobin A1c goal of less than 7.0% ([facility]) Ck FS daily as needed E11.9 100 [...] A1c goal of less than 8.0% ([facility]) TAKE 1 TABLET EVERY MORNING AND 2 TABLETS WITH DINNER DAILY (DOSE INCREASE) 270 Tablet 1 02/19/20 24 Active Pravastatin Sodium 40 MG Oral Tablet (Pravachol)Indica tions:Congestive cardiomyopathy (HCC),High triglycerides,Dys lipidemia, goal LDL below 100 Take 1 Tablet by mouth at bedtime. 90 Tablet 1 02/19/20 24 Active Allopurinol 300 [...] resuscitate) 05/24/2019 Overview: 05/24/19 signed/scanned [facility] [employer]. Redone 02/14/20. Coronary artery disease invo lving [place] coronary artery of [place] heart without angina pectoris 04/19/2019 Dyslipidemia 04/11/2019 Acquired hypothyroidism 04/11/2019 Venous stasis dermatitis 12/10/2018 Obesity, Class I, BMI 30.0-34.9 (see actual BMI) 05/21/2018 DM type 2 with diabetic peripheral neuropathy Well adult exam 04/22/2017 Overview: 11/07 EGD [facility] mod gastritis chronic. 11/04 EMG-Abnormal study, although very limited. This electrodiagnostic study shows evidence of a severe, chronic, axonal sensorimotor polyneuropathy. All tested nerves in the right upper and right lower extremity were absent. 06/04 heme rec get pulse ox RA & Epo level (high). Renal US ok. Obed CBC yearly. 2017 echo--EF 45-50. 08/02 Colon-mult polyps PATH tubular [...] 05/02/2010 03/14/2020 Anticoagulation management encounter 05/02/2010 03/14/2020 halfway current use of ant icoagulant therapy 05/02/2010 [...] encounter Miscellaneous Notes * Telephone Encounter - Suzette Almanzar [facility] - 02/19/2024 10:24 AM EDTSigned Prescriptions: Disp Refills Metoprolol Succinate ER 50 MG Oral Tablet *450 Ta*1 Sig: TAKE 3 TABLETS IN THE MORNING AND 2 TABLETS IN THE EVENING Authorizing Provider: CHICO VILLARREAL Ordering User: SUZETTE ALMANZAR Allopurinol 300 MG Oral Tablet (Zyloprim) 90 Tab*1 Sig: Take 1 Tablet by mouth in the morning. Authorizing Provider: CHICO VILLARREAL RD Ordering User: SUZETTE ALMANZAR metFORMIN HCl ER 500 MG Oral Tablet Extend*270 Ta*1 Sig: TAKE 1 TABLET EVERY MORNING AND 2 TABLETS WITH DINNER DAILY (DOSE INCREASE) Authorizing Provider: CHICO VILLARREAL Ordering User: SUZETTE ALMANZAR Pravastatin Sodium 40 MG Oral Tablet (Prav*90 Tab*1 Sig: Take 1 Tablet by mouth at bedtime. Authorizing Provider: CHICO VILLARREAL rdering User: SUZETTE ALMANZAR * Telephone Encounter - Marcelina Streeter, gas operations superintendent - 02/17/2024 1:58 PM EDT Did you pend patient's preferred pharmacy and medication before forwarding?yes Pharmacy: [facility] [id number] [place] Pending Prescriptions: Disp Refills Metoprolol Succinate ER 50 MG Oral Tablet*450 Ta*3 Allopurinol 300 MG Oral Tablet (Zyloprim) 90 Tab*3 Sig: Take 1 Tablet by mouth in the morning. metFORMIN HCl ER 500 MG Oral Tablet Exten*270 Ta*2 Pravastatin Sodium 40 MG Oral Tablet (Pra*90 Tab*3 Sig: Take 1 Tablet by mouth at bedtime. Last Visit: 02/15/2024 (in office), 02/02/2020 (telemedicine) Next Visit: 07/13/2024 If no future appointments scheduled, and last appointment is greater than a year ago, please schedule patient for a follow-up appointment Last date the medication was ordered: 05/01/2023,06/11/2023,05/11/2023, 06/08/2023 Is this request for a controlled substance?No Urine Drug Screen:No results found. However, due to the size of the patient record, not all encounters were searched. Please check Results Review for a complete set of results. Patient Phone Numbers Labs: Lab Results Component [...] 03/02/2024 9:20 AM EDT Office Visit Podiatry [facility] 132 [facility] [place] [address] Saranya Bolden, MINE [address] [place] [address] [place] [address] 03/30/2024 9:30 AM EDT Anticoagulation Pharmacy, [facility] 132 [facility] [place] [address] [facility] [address] [facility] [place] [address] 04/05/2024 8:00 AM EDT Office Visit Cardiology, [facility] 132 [facility] [place] [address] Aris Potter PA-C 132 [facility] [place] [address] 04/19/2024 9:00 AM EDT Office Visit Sleep Disorders Ctr [facility] 132 [facility] [place] [phone] Janeen Montaño CRNP 132 [facility] [place] [address] 07/13/2024 8:20 AM EST Office Visit Family Practice [facility] 132 [facility] [place] [address] Chico Villarreal MD [address] [place] [address] Health Maintenance Due Date Last Done Comments [...] as of this encounter Visit Diagnoses Diagnosis Persistent atrial fibrillation (HCC) Atrial fibrillation Gouty arthropathy Gouty arthropathy, unspecified Type 2 diabetes mellitus with hemoglobin A1c goal of less than 8.0% (HCC) Congestive cardiomyopathy (HCC) Other primary cardiomyopathies PURE HYPERGLYCERIDEMIA Pure hyperglyceridemia Dyslipidemia, goal LDL below 100 Other and unspecified hyperlipidemia documented in this encounter Advance Directives Documents on File Type Date Recorded Patient Telephone Sales Representative Expl anation POLST 10/01/2023 8:31 AM POLST (Pierce ited DNR) Advance Directives and Living Will 03/11/2017 LIVING WILL Power of Deckhand [employer] 03/11/2017 [facility] Care Teams Pen Maker Relationship Specialty Start Date End Date Chico Villarreal MD [address] [place] [address] PCP - General Family Medicine 08/27/16 documented as of this encounter
--- OUTSIDE RECORDS SUMMARY | 2024-03-05 22:46 | External Medical Summary | Summary of Care ---
Author Name Unknown Organization [facility] Address [address] [place] [address] Phone [phone] Care Team Providers Care Owner [employer] Name Role Phone Chico Scherer MD Primary Care Provider + Reason for Visit * Reason Onset Date Comments Test Results 02/10/2024 Encounter Details Date Type Department Care Team (Late st Contact Info) Description 02/10/2024 Telephone Cardiology, [facility] [address] [facility] [address] Aris Potter PA-C [address] [place] [facility] [place] [address] Test Results Allergies No known active allergiesdocumented [...] Reported on 11/11/2023 Blood Glucose Monitoring Suppl (PiximUCH ULTRA SYSTEM) W/DEVICE KITIndications:DM type 2, goal A1c below 7 Use up to 4/day - Type II diabetes- #E11.9 1 Kit 0 09/13/19 16 Active ONETOUCH DELICA LANCETS 33G MISCIndications:Ty pe 2 diabetes mellitus with hemoglobin A1c goal of less than 7.0% ([facility]) Ck FS daily as needed [...] hemoglobin A1c goal of less than 8.0% ([facility]) TAKE 1 TABLET EVERY MORNING AND 2 [...] 05/24/2019 Overview: 05/24/19 signed/scanned [facility] [employer]. Redone 02/14/20. Coronary artery disease invo lving [place] coronary artery of [place] heart without angina pectoris 04/19/2019 Dyslipidemia 04/11/2019 Acquired hypothyroidism 04/11/2019 Venous stasis dermatitis 12/10/2018 Obesity, Class I, BMI 30.0-34.9 (see actual BMI) 05/21/2018 DM type 2 with diabetic peripheral neuropathy Well adult exam 04/22/2017 Overview: 11/07 EGD [facility] mod gastritis chronic. 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 ----- Message from Aris Potter sent at 02/10/2024 3:07 PM EDT ----- ok documented in this encounter Plan of Treatment Upcoming Encounters Date Type Department Care Team (Late st Contact Info) Description 02/17/2024 9:50 AM EDT Anticoagulation Pharmacy, [facility] [address] [place] [address] [facility] [address] [place] [address] 04/05/2024 8:00 AM EDT Office Visit Cardiology, [facility] [address] [place] [address] Aris Potter PA-C [address] [place] [address] 04/19/2024 9:00 AM EDT Office Visit Sleep Disorders Ctr [facility] [address] [place] [phone] Janeen Montaño CRNP [address] [place] [address] 07/13/2024 8:20 AM EST Office Visit Family Practice [facility] [address] [place] [address] Chico Scherer MD [address] [place] [address] Health Maintenance Due Date Last Done Comments [...] Documents on File Type Date Recorded Patient Sales Agent Casualty Insurance Expl anation POLST 10/01/2023 8:31 AM POLST (Pierce ited DNR) Advance Directives and Living Will 03/11/2017 LIVING WILL Power of Molding And Trim Installer 03/11/2017 [facility] Care Teams Owner [employer] Relationship Specialty Start Date End Date Chico Scherer MD [address] [place] [address] PCP - General Family Medicine 08/27/16 documented as of this encounter
--- OUTSIDE RECORDS SUMMARY | 2024-03-05 22:46 | External Medical Summary ---
Author Name Unknown Address Unknown Organization [facility] [address] [place] [address] Laboratory Report Ordering Provider Test Date Status TAMIE NGUYEN 02/10/2024 09:55:45 Final Observation Date Value Abnormality Reference (Units ) Status BUN 02/10/2024 09:55:45 36 Above high normal 6-20 (mg/dL) Final Creatinine 02/10/2024 09:55:45 1.3 Above high normal 0.6-1.2 (mg/dL) Final Glomerular filtration rate/1.73 sq M.predicted [Volume Rate/Area] in Serum, Plasma or Blood by Creatinine-based formula (CKD-EPI) 02/10/2024 09:55:45 53 Below low normal >=60 (mL/min) Final eGFR is calculated based on the CKD-EPI 2020 equation Sodium 02/10/2024 09:55:45 135 135-146 (m mol/L) Final Potassium 02/10/2024 09:55:45 4.0 3.5-5.1 (m mol/L) Final Cl 02/10/2024 09:55:45 98 98-107 (mm ol/L) Final CO2 02/10/2024 09:55:45 23 22-32 (mmo l/L) Final Anion gap 02/10/2024 09:55:45 14 7-15 (mmol /L) Final Glucose 02/10/2024 09:55:45 158 Above high normal 70 -120 (mg/dL) Final Calcium 02/10/2024 09:55:45 9.4 8.4-10.2 ( mg/dL) Final Performing Location [facility]-1 0 - [address] [place] [address]
--- OUTSIDE RECORDS SUMMARY | 2024-03-05 22:46 | External Medical Summary | Summary of Care ---
Author Name Unknown Organization [facility] Address [address] [place] [address] Phone [phone] Care Team Providers Care Special Diet Cook Name Role Phone Chico Scherer MD Primary Care Provider + Reason for Visit * Reason Onset Date Comments Med Request 02/02/2024 Encounter Details Date Type Department Care Team (Late st Contact Info) Description 02/02/2024 Telephone Cardiology, [facility] [address] [employer] [address] [facility] [place] [address] Aris Potter PA-C [address] [place] [address] Med Request Allergies No known active allergiesdocumented as of [...] Reported on 11/11/2023 Blood Glucose Monitoring Suppl (Power ElectronicsUCH ULTRA SYSTEM) W/DEVICE KITIndications:DM type 2, goal [...] clinic 90 Tablet 3 02/02/20 24 Active Warfarin Sodium 5 MG Oral Tablet Take 1 Tablet by mouth once a day on Thursday, , Thursday, and Thursday only. or as directed by anticoagulation clinic 024 Discontin ued(Refil l) documented as of this encounter (statuses as of 02/02/2024) Active Problems Problem Noted Date Diagnosed Date Leg ulcer, right, limited to breakdown of skin 0 12/30/2023 Lumbar degenerative disc disease 10/15/2023 Symptomatic care patient 10/15/2023 Adult failure to thrive 10/15/2023 Permanent atrial fibrillation 03/14/2020 Secondary polycythemia 03/14/2020 DNR (do not resuscitate) 05/24/2019 Overview: 05/24/19 signed/scanned [facility] health. Redone 02/14/20. Coronary artery disease invo lving [place] coronary artery of [place] heart without angina pectoris 04/19/2019 Dyslipidemia 04/11/2019 Acquired hypothyroidism 04/11/2019 Venous stasis dermatitis 12/10/2018 Obesity, Class I, BMI 30.0-34.9 (see actual BMI) 05/21/2018 DM type 2 with diabetic peripheral neuropathy Well adult exam 04/22/2017 Overview: 11/07 EGD [facility] mod gastritis chronic. 11/04 EMG-Abnormal study, [...] 05/02/2010 03/14/2020 Anticoagulation management encounter 05/02/2010 03/14/2020 [facility] current use of ant icoagulant therapy 05/02/2010 [...] Encounter - Kiet Poole LPN - 02/02/2024 11:37 AM EDT Sent patient a Cheggin message to make aware. * Telephone Encounter - Aris Potter PA-C - 02/02/2024 11:33 AM EDT Fenofibrate, used for high triglycerides, was previously discontinued. Coumadin refilled Agree with use of Miralax. Aris Potter PA-C Department of Cardiology * Telephone Encounter - Kiet Poole LPN - 02/02/2024 8:50 AM EDT Called patient and spoke to who stated patient has been taking fenofibrate after GI procedure and is having regular BM since taking Miralax daily. Pended prescriptions. * Telephone Encounter - Marcy Cunha PHARM Tech - 02/02/2024 8:30 AM EDT Incoming call from patient's ec requesting 90 day supplies for fenofibrate 54mg and warfarin 5mg marian sent to [id number]. Both medications are listed as historical. Caller can be reached at [phone]. Please send new prescriptions if appropriate. Thank you, Marcy Cunha Lead Nuclear Medicine Technologist I [facility] ([facility]) 02/02/2024,8:32 AM documented in this encounter Plan of Treatment Upcoming Encounters Date Type Department Care Team (Late st Contact Info) Description 02/17/2024 9:50 AM EDT Anticoagulation Pharmacy, [address] [place] [address] [facility] Gwen Pittmangail [place] [address] 04/05/2024 8:00 AM EDT Office Visit Cardiology, [address] [place] [address] Aris Potter PA-C [address] [place] [address] 04/19/2024 9:00 AM EDT Office Visit Sleep Disorders Ctr [facility] [address] [place] [phone] Janeen Montaño CRNP [address] [place] [address] 07/13/2024 8:20 AM EST Office Visit Family Practice [facility] [address] [place] [address] Chico Scherer MD [address] [place] [address] Health Maintenance Due Date Last Done Comments [...] Documents on File Type Date Recorded Patient Curtain Drier Expl anation POLST 10/01/2023 8:31 AM POLST (Pierce ited DNR) Advance Directives and Living Will 03/11/2017 LIVING WILL Power of Environmental Monitoring Technician 03/11/2017 [facility] Care Teams Special Diet Cook Relationship Specialty Start Date End Date Chico Scherer MD [address] [place] [address] PCP - General Family Medicine 08/27/16 documented as of this encounter
--- OUTSIDE RECORDS SUMMARY | 2024-03-05 22:47 | External Medical Summary | Summary of Care ---
Author Name Unknown Organization [facility] Address [address] [place] [address] Phone [phone] Care Team Providers Care Bottled Beverage Inspector Name Role Phone Chico Scherer MD Primary Care Provider + Reason for Visit * Reason Comments Dosage Adjustment In Person (Anticoag Cl inic) Encounter Details Date Type Department Care Team (Latest Contact Info) Description 01/20/2024 9:50 AM EDT Anticoagulation Pharmacy, [facility] [address] [place] [address] [address] Anticoagulation management encounter*; care home current use of anticoagulant therapy Allergies No known active allergiesdocumented as of this encounter (statuses as of 01/20/2024) Medications Medication Sig Dispensed Refills Start Date [...] Reported on 11/11/2023 Blood Glucose Monitoring Suppl (SmeetTOUCH ULTRA SYSTEM) W/DEVICE KITIndications:DM type 2, goal A1c below 7 Use up to 4/day - Type II diabetes- #E11.9 1 Kit 0 09/13/19 16 Active ONETOUCH DELICA LANCETS 33G MISCIndications:Ty pe 2 diabetes mellitus with hemoglobin A1c goal of less than 7.0% ([facility]) Ck FS daily as needed E11.9 100 Each 5 04/21/20 19 Active Acetaminophen 500 MG Oral Capsule Take 2 Capsules by mouth every 6 hours as needed for Pain, Moderate. Active Lactulose 10 GM/15ML Oral Solution (Constulose) TAKE 15 MILLILITER BY MOUTH EVERY DAY IN THE MORNING AND TAKE 15 MILLILITER BY MOUTH BEFORE BEDTIME NEEDED FOR CONSTIPATION 240 mL 11/21/19 Active Ketoconazole 2 % External Cream Apply topically to affected area 2 times a day. Apply to rash on face., under chest & groin rash 180 g 1 03/12/20 Active Additional Information Patient taking differently: 1 ApplicationTopicalBID PRN, Other, for rash, Apply to rash on face., under chest & groin rash, Informant: Spouse, Reported on 11/11/2023 Levothyroxine Sodium 88 MCG Oral Tablet (Levoxyl) TAKE 1 TABLET DAILY FOR THYROID 90 Tablet 3 03/30/20 Active Allopurinol 300 MG Oral Tablet (Zyloprim)Indicati ons:Gouty arthropathy TAKE 1 TABLET DAILY 90 Tablet 3 05/01/20 Active Metoprolol Succinate ER 50 MG Oral Tablet Extended Release 24 Hour (toPROL XL)Indications:Per sistent atrial fibrillation (HCC) TAKE 3 TABLETS IN THE MORNING AND 2 TABLETS IN THE EVENING 450 Tablet 3 05/11/20 Active Pravastatin Sodium 40 MG Oral Tablet (Pravachol)Indicat ions:Congestive cardiomyopathy (HCC),High triglycerides,Dysl ipidemia, goal LDL below 100 TAKE 1 TABLET AT BEDTIME 90 Tablet 3 06/08/20 Active metFORMIN HCl ER 500 MG Oral Tablet Extended Release 24 Hour (Glucophage XR)Indications:Typ e 2 diabetes mellitus with hemoglobin A1c goal of less than 8.0% ([facility]) TAKE 1 TABLET EVERY MORNING AND 2 TABLETS WITH DINNER DAILY (DOSE INCREASE) 270 Tablet 2 06/11/20 Active Pantoprazole Sodium 40 MG Oral Tablet Delayed Release (Protonix) Take 1 Tablet by mouth in the morning. 30 minutes before the first meal of the day. Do not crush, split or chew the tablet. 90 Tablet 1 08/11/20 Active Mirtazapine 15 MG Oral Tablet (Remeron)Indicatio [...] mouth in the morning. 10/19/19 24 Active Aldactone 25 MG Oral TabletIndications: HTN, goal below 140/90,Congestive cardiomyopathy (HCC) Take 1 Tablet by mouth in the morning and 1 Tablet before bedtime. 180 Tablet 3 12/21/19 24 Active Furosemide 80 MG Oral Tablet (Lasix)Indications :HTN, goal below 140/90,Congestive cardiomyopathy (HCC) Take 1 Tablet by mouth in the morning and 1 Tablet before bedtime. 12/21/19 24 Active Famotidine 20 MG Oral Tablet (Pepcid) Take 1 Tablet by mouth in the morning. 90 Tablet 12/22/19 24 Active traMADol HCl 50 MG Oral Tablet (Ultram) Take 1 Tablet by mouth in the morning and 1 Tablet before bedtime. 60 Tablet 12/23/19 24 Active Empagliflozin 10 MG Oral Tablet (Jardiance)Indicat ions:Type 2 diabetes mellitus with hemoglobin A1c goal of less than 8.0% ([facility]) Take 1 Tablet by mouth in the morning. 30 Tablet 11 12/30/19 24 Active OneTouch Ultra Test In Vitro Strip (Glucose Blood)Indications: Type 2 diabetes mellitus with hemoglobin A1c goal of less than 8.0% ([facility]) TEST DAILY DIRECTED 100 Strip 3 01/02/20 24 Active Calcitonin ([place]) 200 UNIT/ACT Nasal Solution (Fortical)Indicati ons:Closed wedge compression fracture of L1 vertebra, initial encounter ([facility]) USE 1 SPRAY IN 1 NOSTRIL EVERY MORNING, ALTERNATE NOSTRILS 3.7 mL 1 01/08/20 24 Active documented as of this encounter (statuses as of 01/20/2024) Active Problems Problem Noted Date Diagnosed Date Leg ulcer, right, limited to breakdown of skin 0 12/30/2023 Lumbar degenerative disc disease 10/15/2023 Symptomatic care patient 10/15/2023 Adult failure to thrive 10/15/2023 Permanent atrial fibrillation 03/14/2020 Secondary polycythemia 03/14/2020 DNR (do not resuscitate) 05/24/2019 Overview: 05/24/19 signed/scanned [facility]. Redone 02/14/20. Coronary artery disease invo lving [place] coronary artery of [place] heart without angina pectoris 04/19/2019 Dyslipidemia 04/11/2019 Acquired hypothyroidism 04/11/2019 Venous stasis dermatitis 12/10/2018 Obesity, Class I, BMI 30.0-34.9 (see actual BMI) 05/21/2018 DM type 2 with diabetic peripheral neuropathy Well adult exam 04/22/2017 Overview: 11/07 EGD [facility] mod gastritis chronic. 11/04 EMG-Abnormal [...] as of this encounter (statuses as of 01/20/2024) Resolved Problems Problem Noted Date Diagnosed Date [...] 05/02/2010 03/14/2020 Anticoagulation management encounter 05/02/2010 03/14/2020 care home current use of ant icoagulant therapy 05/02/2010 [...] as of this encounter (statuses as of 01/20/2024) Immunizations Name Administration Dates Next Due COVID-19 [...] of this encounter Progress Notes * Madison Ackerman, [facility] - 01/20/2024 9:18 AM EDT Medication Therapy Disease Management - Anticoagulation Patient: Brionna Bone | : 1940 Subjective Patient-Reported Symptoms: Patient Findings Negatives: Signs/symptoms of thrombosis, Signs/symptoms of bleeding, Change in health, Change in alcohol use, Change in activity, Upcoming invasive procedure, Missed doses, Extra doses, Change in medications, Change in diet/appetite, Bruising Objective Current Warfarin Dose As of 01/20/2024 Warfarin maintenance plan: 5 mg (5 mg x 1) every Tue, Cely, Sat; 2.5 mg (5 mg x 0.5) all other days INR Result As of 01/20/2024 INR goal: 2.0-3.0 INR used for dosin.4 (01/20/2024) Assessment & Plan Warfarin Plan As of 01/20/2024 Full warfarin instructions: 5 mg every Tue, Cely, Sat; 2.5 mg all other days No change documented: Madison Ackerman RPh Next INR check: 02/17/2024 Repeat PT/INR in 4 week(s) Weekly dose: not changed Additional Dosing Information: Madison Ackerman RPh Clinical Pharmacist 01/20/2024, 9:24 AM documented in this encounter Plan of Treatment Upcoming Encounters Date Type Department Care Team (Late st Contact Info) Description 02/17/2024 9:50 AM EDT Anticoagulation Pharmacy, [facility] [address] [place] [address] [place], [facility] [address] [place] [address] 04/05/2024 8:00 AM EDT Office Visit Cardiology, [facility] [address] [place] [address] Aris Potter PA-C [address] [place] [address] 04/19/2024 9:00 AM EDT Office Visit Sleep Disorders Ctr [facility] [address] [place] [phone] Janeen Montaño CRNP [address] [place] [address] 07/13/2024 8:20 AM EST Office Visit Family Practice [facility] [address] [place] [address] Chico Scherer MD [address] [place] [address] Health Maintenance Due Date Last Done Comments [...] Comments INR FINGERSTICK, POINT OF CARE STAT 01/20/2024 9:22 AM EDT Anticoagulation management encounter care home current use of anticoagulant therapy documented in this encounter Results * INR FINGERSTICK, POINT OF CARE (01/20/2024 9:22 AM EDT) Fingerstick INR 2.4 INR 9:24 AM EDT [facility] Blood 01/20/2024 9:22 AM EDT 01/20/2024 9:24 AM EDT Narrative [facility] - 01/20/2024 9:24 AM EDT Therapeutic ranges for non-operative patients: Prophylaxsis/treatment of DVT: (Range:2.0-3.0) Treatment of pulmonary embolism:(Range:2.0-3.0) Prevention of systemic embolism from: -tissue heart valves -acute myocardial infarction -valvular heart disease -atrial fibrillation (Range: 2.0-3.0) Mechanical prosthetic valves: (Range: 2.5-3.5) Madison Ackerman [facility] POINT OF C ARE TEST DOCKED DEVICE UNSOLICITED RESULTS [facility] [place] [place] [address] documented in this encounter Visit Diagnoses Diagnosis Anticoagulation management encounter- Primary Encounter for therapeutic drug monitoring predatory animal exterminator current use of anticoagulant therapy documented in this encounter Advance Directives Documents on File Type Date Recorded Patient Enterprise Systems Engineer Expl anation POLST 10/01/2023 8:31 AM POLST (Pierce ited DNR) Advance Directives and Living Will 03/11/2017 LIVING WILL Power of Strap Machine Operator 03/11/2017 [facility] Care Teams Bottled Beverage Inspector Relationship Specialty Start Date End Date Chico Scherer MD [address] [place] [address] PCP - General Family Medicine 08/27/16 documented as of this encounter"
--- OUTSIDE RECORDS SUMMARY | 2024-03-05 22:47 | External Medical Summary | Summary of Care ---
Author Name Unknown Organization [facility] Address [address] [place] [address] Phone [phone] Care Team Providers Care Gluing Machine Operator Electronic Name Role Phone Chico Scherer MD Primary Care Provider + Reason for Visit * Reason Onset Date Comments Medical Questions 01/27/2024 Encounter Details Date Type Department Care Team (Late st Contact Info) Description 01/27/2024 Telephone Family Practice [facility] 132 [place] [address] Chico Scherer MD [address] [place] [address] Medical Questions Allergies No known active allergiesdocumented as of this encounter (statuses as of 01/28/2024) Medications Medication Sig Dispensed Refills Start Date [...] Reported on 11/11/2023 Blood Glucose Monitoring Suppl (SecondLeap ULTRA SYSTEM) W/DEVICE KITIndications:DM type 2, goal [...] TABLET DAILY AFTER A MEAL 90 Tablet 09/29/19 24 Active Additional Information Patient taking [...] 10/19/19 24 Active Aldactone 25 MG Oral TabletIndications [...] hemoglobin A1c goal of less than 8.0% ([facility]) Take 1 Tablet by mouth in the morning. 30 Tablet 11 12/30/19 24 Active OneTouch Ultra Test In Vitro Strip (Glucose Blood)Indications :Type 2 diabetes mellitus with hemoglobin A1c goal of less than 8.0% ([facility]) TEST DAILY DIRECTED 100 Strip 3 01/02/20 [...] TABLET. 90 Tablet 1 01/25/20 24 Active Calcitonin ([place]) 200 UNIT/ACT Nasal Solution (Fortical)Indicat ions:Closed wedge compression fracture of L1 vertebra, initial encounter ([facility]) USE 1 SPRAY IN 1 NOSTRIL EVERY MORNING, ALTERNATE NOSTRILS 3.7 mL 1 01/08/20 24 024 Discontin ued(Medic ation List Clean Up) documented as of this encounter (statuses as of 01/28/2024) Active Problems Problem Noted Date Diagnosed Date Leg ulcer, right, limited to breakdown of skin 0 12/30/2023 Lumbar degenerative disc disease 10/15/2023 Symptomatic care patient 10/15/2023 Adult failure to thrive 10/15/2023 Permanent atrial fibrillation 03/14/2020 Secondary polycythemia 03/14/2020 DNR (do not resuscitate) 05/24/2019 Overview: 05/24/19 signed/scanned [facility] [employer]. Redone 02/14/20. Coronary artery disease invo lving [place] coronary artery of [place] heart without angina pectoris 04/19/2019 Dyslipidemia 04/11/2019 Acquired hypothyroidism 04/11/2019 Venous stasis dermatitis 12/10/2018 Obesity, Class I, BMI 30.0-34.9 (see actual BMI) 05/21/2018 DM type 2 with diabetic peripheral neuropathy Well adult exam 04/22/2017 Overview: 11/07 EGD [facility] mod gastritis chronic. 11/04 EMG-Abnormal study, although [...] as of this encounter (statuses as of 01/28/2024) Resolved Problems Problem Noted Date Diagnosed Date [...] 05/02/2010 03/14/2020 Anticoagulation management encounter 05/02/2010 03/14/2020 prison current use of ant icoagulant therapy 05/02/2010 [...] as of this encounter (statuses as of 01/28/2024) Immunizations Name Administration Dates Next Due COVID-19 [...] encounter Miscellaneous Notes * Telephone Encounter - Farzaneh Barros MED ASSIST - 01/27/2024 10:17 AM EDT Patient made aware * Telephone Encounter - Chico Scherer MD - 01/27/2024 9:22 AM EDT Call --Ok to stop calcitonin now. * Telephone Encounter - Malissa Jiménez PHARM Tech - 01/27/2024 8:27 AM EDT Pt's ec called asking if he should continue to the Calcitonin , asking for a call back at [phone], please advise Thank you, Malissa Jiménez,[facility] Coin Machine Collector Supervisor II [facility] 01/27/2024, 8:28 AM documented in this encounter Plan of Treatment Upcoming Encounters Date Type Department Care Team (Late st Contact Info) Description 02/17/2024 9:50 AM EDT Anticoagulation Pharmacy, [facility] [address] [place] [address] [facility] [address] [place] [address] 04/05/2024 8:00 AM EDT Office Visit Cardiology, [facility] [address] [place] [address] Aris Potter PACiraC [address] [place] [address] 04/19/2024 9:00 AM EDT Office Visit Sleep Disorders Ctr [facility] [address] [place] [phone] Janeen Montaño CRNP [address] [place] [address] 07/13/2024 8:20 AM EST Office Visit Family Practice [facility] [address] [place] [address] Chico Scherer MD [address] [place] [address] Health Maintenance Due Date Last Done Comments [...] Documents on File Type Date Recorded Patient Machine Inker Expl anation POLST 10/01/2023 8:31 AM POLST (Pierce ited DNR) Advance Directives and Living Will 03/11/2017 LIVING WILL Power of [place] Supervisor 03/11/2017 [facility] Care Teams Gluing Machine Operator Electronic Relationship Specialty Start Date End Date Chico Scherer MD [address] [place] [address] PCP - General Family Medicine 08/27/16 documented as of this encounter
--- OUTSIDE RECORDS SUMMARY | 2024-03-05 22:47 | External Medical Summary ---
Author Name Unknown Address Unknown Organization [facility] - [address] [place] [address] Laboratory Report Ordering Provider Test Date Status DEBORAH POOLE 01/20/2024 09:22:17 Final Therapeutic ranges for non-o perative patients:
Prophylaxsis/treatment of DVT: (Range:2.0-3.0)
Treatment of pulmonary embolism:(Range:2.0-3.0)
Prevention of systemic embolism from:
-tissue heart valves
-acute myocardial infarction
-valvular heart disease
-atrial fibrillation
(Range: 2.0-3.0)
Mechanical prosthetic valves: (Range: 2.5-3.5) Observation Date Value Abnormality Reference (Units ) Status INR in Capillary blood by Coagulation assay 01/20/2024 09:22:17 2.4 (INR) Final Performing Location [facility] 0 - [address] [place] [address]
--- OUTSIDE RECORDS SUMMARY | 2024-03-05 22:47 | External Medical Summary ---
Author Name Unknown Address Unknown Organization [facility] - [address] [place] [address] Laboratory Report Ordering Provider Test Date Status TAMIE NGUYEN 01/28/2024 09:35:10 Final Observation Date Value Abnormality Reference (Units ) Status BUN 01/28/2024 09:35:10 45 Above high normal 6-20 (mg/dL) Final Creatinine 01/28/2024 09:35:10 1.6 Above high normal 0.6-1.2 (mg/dL) Final Glomerular filtration rate/1.73 sq M.predicted [Volume Rate/Area] in Serum, Plasma or Blood by Creatinine-based formula (CKD-EPI) 01/28/2024 09:35:10 44 Below low normal >=60 (mL/min) Final eGFR is calculated based on the CKD-EPI 2020 equation Sodium 01/28/2024 09:35:10 134 Below low normal 135 -146 (mmol/L) Final Potassium 01/28/2024 09:35:10 4.3 3.5-5.1 (m mol/L) Final Cl 01/28/2024 09:35:10 94 Below low normal 98- 107 (mmol/L) Final CO2 01/28/2024 09:35:10 27 22-32 (mmo l/L) Final Anion gap 01/28/2024 09:35:10 13 7-15 (mmol /L) Final Glucose 01/28/2024 09:35:10 184 Above high normal 70 -120 (mg/dL) Final Calcium 01/28/2024 09:35:10 9.6 8.4-10.2 ( mg/dL) Final Performing Location [facility] [address] [place] [address]
--- OUTSIDE RECORDS SUMMARY | 2024-03-05 22:47 | External Medical Summary | Summary of Care ---
Author Name Unknown Organization [facility] Address [address] [place] [address] Phone [phone] Care Team Providers Care Split Leather Department Supervisor Name Role Phone Chico Scherer MD Primary Care Provider + Encounter Details Date Type Department Care Team (Late st Contact Info) Description 10/12/2023 Telephone Cardiology, [facility] [address] [facility] [place] [address] Aris Potter PA-C [address] [facility] [place] [address] Allergies No known active allergiesdocumented as of this encounter (statuses as of 01/11/2024) Medications Medication Sig Dispensed Refills Start Date End Date Status MULTIVITAMINS PO TABS one daily Active ASPIRIN 81 MG PO CHEW take one tablet daily 100 Tab 3 010 Active DOCUSATE SODIUM 100 MG PO CAPSIndications: Constipation One pill by mouth daily for constipation 90 Cap 3 013 Active Additional Information Patient not taking.Informant: Spouse, Reported on 11/11/2023 Blood Glucose Monitoring Suppl ([employer] UKTOUCH ULTRA SYSTEM) W/DEVICE KITIndications:D M type 2, goal A1c below 7 Use up to 4/day - Type II diabetes- #E11.9 1 Kit 0 016 Active ONETOUCH DELICA LANCETS 33G MISCIndications: Type 2 diabetes mellitus with hemoglobin A1c [...] FOR THYROID 90 Tablet 3 023 Active Allopurinol 300 MG Oral Tablet (Zyloprim)Indica tions:Gouty arthropathy TAKE 1 TABLET DAILY 90 Tablet 3 023 Active Metoprolol Succinate ER 50 MG Oral Tablet Extended Release 24 Hour (toPROL XL)Indications:P ersistent atrial fibrillation (HCC) TAKE 3 TABLETS IN THE MORNING AND 2 TABLETS IN THE EVENING 450 Tablet 3 023 Active Pravastatin Sodium 40 MG Oral Tablet (Pravachol)Indic ations:Congestiv e cardiomyopathy (HCC),High triglycerides,Dy slipidemia, goal LDL below 100 TAKE 1 TABLET AT BEDTIME 90 Tablet 3 023 Active metFORMIN HCl ER 500 MG Oral Tablet Extended Release 24 Hour (Glucophage XR)Indications:T ype 2 diabetes mellitus with hemoglobin A1c goal of less than 8.0% ([facility]) TAKE 1 TABLET EVERY MORNING AND 2 TABLETS WITH DINNER DAILY (DOSE INCREASE) 270 Tablet 2 023 Active Pantoprazole Sodium 40 MG Oral Tablet Delayed Release (Protonix) Take 1 Tablet by mouth in the morning. 30 minutes before the first meal of the day. Do not crush, split or chew the tablet. 90 Tablet 1 023 Active Mirtazapine 15 MG Oral Tablet (Remeron)Indicat ions:Decreased appetite,Adjustm ent disorder with depressed mood,Insomnia, unspecified type Take 1 Tablet by mouth at bedtime. 30 Tablet 5 Active Ondansetron 4 MG Oral Tablet Disintegrating (Zofran)Indicati ons:Nausea Place 1 Tablet on tongue every 8 hours as needed for Nausea. dissolve on tongue. 90 Tablet 1 Active Colchicine 0.6 MG Oral Tablet 2 tab at start of gout attack, 1 pill 1 hour later. (3 pills total per attack). Stop twice daily dosing. 12 Tablet 3 Active Mupirocin 2 % External Ointment (Bactroban) APPLY TOPICALLY TO AFFECTED AREA THREE TIMES A DAY FOR UP TO 14 DAYS 75 g 29 Active Additional Information Patient taking differently: 75 g Topical TID PRN, Other, skin irritation to folds of skin, Informant: Spouse, Reported on 11/11/2023 Alfuzosin HCl ER 10 MG Oral Tablet Extended Release 24 Hour (Uroxatral)Indic ations:BPH with obstruction/lowe r urinary tract symptoms TAKE 1 TABLET DAILY AFTER A MEAL 90 Tablet 3 Active Additional Information Patient taking differently: 10 [...] Other (or nasal congestion). Active Warfarin Sodium 5 MG Oral Tablet Take 1 Tablet by mouth once a day on Thursday, , Thursday, and Thursday only. or as directed by anticoagulation clinic Activ e Warfarin Sodium 2.5 MG Oral Tablet (Coumadin) Take 1 Tablet by mouth once a day on Thursday, Thursday, and Thursday only. Or as directed by anticoagulation clinic Activ e OneTouch Ultra Blue In Vitro Strip (Glucose Blood)Indication s:Type 2 diabetes mellitus with hemoglobin A1c goal of less than 8.0% (HCC) TEST FS daily DIRECTED E 11.9 100 Strip 3 022 2023 Discontinued Furosemide 80 MG Oral Tablet (Lasix)Indicatio ns:HTN, goal below 140/90,Congestiv e cardiomyopathy (HCC) Take 1 tablet in the morning and 1/2 tablet at night 180 Tablet 3 023 2023 Discontinued(R efill) Famotidine 20 MG Oral Tablet (Pepcid) Take 1 Tablet by mouth in the morning. 90 Tablet 024 2023 Discontinued(R efill) Aldactone 25 MG Oral Tablet Take 1 Tablet by mouth in the morning and 1 Tablet before bedtime. Take 25 mg in the AM and 12.5 mg in the evening. 2023 Discontinued(R efill) traMADol HCl 50 MG Oral Tablet Take 1 Tablet by mouth in the morning and 1 Tablet in the evening. 2023 Discontinued(R efill) documented as of this encounter (statuses as of 01/11/2024) Active Problems Problem Noted Date Diagnosed Date Leg ulcer, right, limited to breakdown of skin 0 12/30/2023 Lumbar degenerative disc disease 10/15/2023 Symptomatic care patient 10/15/2023 Adult failure to thrive 10/15/2023 Permanent atrial fibrillation 03/14/2020 Secondary polycythemia 03/14/2020 DNR (do not resuscitate) 05/24/2019 Overview: 05/24/19 signed/scanned [facility] blinkbox music. Redone 02/14/20. Coronary artery disease invo [place]ving [place] coronary artery of [place] heart without angina pectoris 04/19/2019 Dyslipidemia 04/11/2019 Acquired hypothyroidism 04/11/2019 Venous stasis dermatitis 12/10/2018 Obesity, Class I, BMI 30.0-34.9 (see actual BMI) 05/21/2018 DM type 2 with diabetic peripheral neuropathy Well adult exam 04/22/2017 Overview: 11/07 EGD [facility] mod gastritis chronic. 11/04 EMG-Abnormal study, although [...] as of this encounter (statuses as of 01/11/2024) Resolved Problems Problem Noted Date Diagnosed Date [...] 05/02/2010 03/14/2020 Anticoagulation management encounter 05/02/2010 03/14/2020 intermodal customer service current use of ant icoagulant therapy 05/02/2010 [...] as of this encounter (statuses as of 01/11/2024) Immunizations Name Administration Dates Next Due COVID-19 [...] encounter Miscellaneous Notes * Telephone Encounter - Adnrew Sargent OSA - 10/12/2023 8:41 AM EST Patient was released from [facility] ER, and needs an ER FU Please call and assist patient, thank you. documented in this encounter Plan of Treatment Upcoming Encounters Date Type Department Care Team (Late st Contact Info) Description 01/20/2024 9:50 AM EDT Anticoagulation Pharmacy, [facility] [address] [place] [address] [facility] [address] [place] [address] 04/05/2024 8:00 AM EDT Office Visit Cardiology, [facility] [address] [place] [address] Aris Potter, PACiraC [address] [place] [address] 04/19/2024 9:00 AM EDT Office Visit Sleep Disorders Ctr [facility] [address] [place] [phone] Janeen Montaño CRNP [address] [place] [address] 07/13/2024 8:20 AM EST Office Visit Family Practice [facility] [address] [place] [address] Chico Scherer MD [address] [place] [address] Health Maintenance Due Date Last Done Comments [...] Documents on File Type Date Recorded Patient Pipe Fitter Apprentice Expl anation POL 10/01/2023 8:31 AM SALUD (Pierce ited DNR) Advance Directives and Living Will 03/11/2017 LIVING WILL Power of Camouflage Assembler 03/11/2017 [facility] Care Teams Split Leather Department Supervisor Relationship Specialty Start Date End Date Chico Scherer MD [address] [place] [address] PCP - General Family Medicine 08/27/16 documented as of this encounter
--- OUTSIDE RECORDS SUMMARY | 2024-03-05 22:47 | External Medical Summary | Summary of Care ---
Author Name Unknown Organization [facility] Address [address] [place] [address] Phone [phone] Care Team Providers Care Instrument Mechanic Name Role Phone Chico Villarreal MD Primary Care Provider + Reason for Visit * Reason Comments eRx-Medication Refill Encounter Details Date Type Department Care Team (Late st Contact Info) Description 01/08/2024 Refill Family Practice [facility] [address] [place] [address] Chico Villarreal MD [address] [place] [address] Closed wedge compression fracture of L1 vertebra, initial encounter ([facility]) Allergies No known active allergiesdocumented as of this encounter (statuses as of 01/08/2024) Medications Medication Sig Dispensed Refills Start Date End Date Status MULTIVITAMINS PO TABS one daily Active ASPIRIN 81 MG PO CHEW take one tablet daily 100 Tab 3 010 Active DOCUSATE SODIUM 100 MG PO CAPSIndications:C onstipation One pill by mouth daily for constipation 90 Cap 3 013 Active Additional Information Patient not taking.Informant: Spouse, Reported on 11/11/2023 Blood Glucose Monitoring Suppl ([employer] ULTRA SYSTEM) W/DEVICE KITIndications:DM type 2, goal A1c below 7 Use up to 4/day - Type II diabetes- #E11.9 1 Kit 0 016 Active ONETOUCH DELICA LANCETS 33G MISCIndications:T ype [...] 023 Active Allopurinol 300 MG Oral Tablet (Zyloprim)Indicat [...] by mouth in the morning. 024 Active Aldactone 25 MG Oral TabletIndications :HTN, goal below 140/90,Congestive cardiomyopathy (HCC) Take 1 Tablet by mouth in the morning and 1 Tablet before bedtime. 180 Tablet 3 024 Active Furosemide 80 MG Oral Tablet (Lasix)Indication s:HTN, goal below 140/90,Congestive cardiomyopathy (HCC) Take 1 Tablet by mouth in the morning and 1 Tablet before bedtime. 024 Active Famotidine 20 MG Oral Tablet (Pepcid) Take 1 Tablet by mouth in the morning. 90 Tablet 024 Active traMADol HCl 50 MG Oral Tablet (Ultram) Take 1 Tablet by mouth in the morning and 1 Tablet before bedtime. 60 Tablet 024 Active Empagliflozin 10 MG Oral Tablet (Jardiance)Indica tions:Type 2 diabetes mellitus with hemoglobin A1c goal of less than 8.0% ([facility]) Take 1 Tablet by mouth in the morning. 30 Tablet 11 024 Active OneTouch Ultra Test In Vitro Strip (Glucose Blood)Indications :Type 2 diabetes mellitus with hemoglobin A1c goal of less than 8.0% ([facility]) TEST DAILY DIRECTED 100 Strip 3 024 Active Calcitonin ([place]) 200 UNIT/ACT Nasal Solution (Fortical)Indicat ions:Closed wedge compression fracture of L1 vertebra, initial encounter ([facility]) USE 1 SPRAY IN 1 NOSTRIL EVERY MORNING, ALTERNATE NOSTRILS 3.7 mL 1 024 Active Calcitonin ([place]) 200 UNIT/ACT Nasal Solution (Fortical)Indicat ions:Closed wedge compression fracture of L1 vertebra, initial encounter ([facility]) Administer 1 [place] into one nostril in the morning. alternate nostrils.. 3 mL 1 024 2023 Discontinued documented as of this encounter (statuses as of 01/08/2024) Active Problems Problem Noted Date Diagnosed Date Leg ulcer, right, limited to breakdown of skin 0 12/30/2023 Lumbar degenerative disc disease 10/15/2023 Symptomatic care patient 10/15/2023 Adult failure to thrive 10/15/2023 Permanent atrial fibrillation 03/14/2020 Secondary polycythemia 03/14/2020 DNR (do not resuscitate) 05/24/2019 Overview: 05/24/19 signed/scanned [facility] health. Redone 02/14/20. Coronary artery disease invo lving [place] coronary artery of [place] heart without angina pectoris 04/19/2019 Dyslipidemia 04/11/2019 Acquired hypothyroidism 04/11/2019 Venous stasis dermatitis 12/10/2018 Obesity, Class I, BMI 30.0-34.9 (see actual BMI) 05/21/2018 DM type 2 with diabetic peripheral neuropathy Well adult exam 04/22/2017 Overview: 11/07 EGD [facility] mod gastritis chronic. 11/04 EMG-Abnormal study, although [...] as of this encounter (statuses as of 01/08/2024) Resolved Problems Problem Noted Date Diagnosed Date [...] 05/02/2010 03/14/2020 Anticoagulation management encounter 05/02/2010 03/14/2020 longterm current use of ant icoagulant therapy 05/02/2010 [...] as of this encounter (statuses as of 01/08/2024) Immunizations Name Administration Dates Next Due COVID-19 [...] Telephone Encounter - Chico Villarreal MD - 01/08/2024 3:54 PM EDTSigned Prescriptions: Disp Refills Calcitonin ([place]) 200 UNIT/ACT Nasal Mercedes*3.7 mL 1 Sig: USE 1 SPRAY IN 1 NOSTRIL EVERY MORNING, ALTERNATE NOSTRILS Authorizing Provider: CHICO VILLARREAL * Telephone Encounter - Leonor Chamorro LPN - 01/08/2024 3:53 PM EDTPending Prescriptions: Disp Refills Calcitonin ([place]) 200 UNIT/ACT Nasal Mercedes*3.7 mL 1 Sig: USE 1 SPRAY IN 1 NOSTRIL EVERY MORNING, ALTERNATE NOSTRILS * Telephone Encounter - Leonor Chamorro LPN - 01/08/2024 3:52 PM EDT Did you pend patient's preferred pharmacy and medication before forwarding?yes Pharmacy: [id number] [place] [address] Pending Prescriptions: Disp Refills Calcitonin ([place]) 200 UNIT/ACT Nasal So*3.7 mL 1 Sig: USE 1 SPRAY IN 1 NOSTRIL EVERY MORNING, ALTERNATE NOSTRILS Last Visit: 12/30/2023 (in office), 02/02/2020 (telemedicine) Next Visit: 07/13/2024 If no future appointments scheduled, and last appointment is greater than a year ago, please schedule patient for a follow-up appointment Last date the medication was ordered: 10/27/2023 Is this request for a controlled substance?No Urine Drug Screen:No results found. However, due to the size of the patient record, not all encounters were searched. Please check Results Review for a complete set of results. Patient Phone Numbers Labs: Lab Results Component Value Date/Time CREAT 1.3 (H) 12/30/2023 01:20 PM CREAT 1.0 01/29/2023 12:00 AM CREAT 1.1 09/26/2019 08:52 AM POTASSIUM 4.4 12/30/2023 01:20 PM POTASSIUM 4.4 01/29/2023 12:00 AM POTASSIUM 4.4 [...] AM HGBA1C 7.6 (H) 04/23/2019 09:28 AM * Telephone Encounter - Ashu Calhoun - 01/08/2024 1:47 PM EDTPending Prescriptions: Disp Refills Calcitonin ([place]) 200 UNIT/ACT Nasal Mercedes*3.7 mL 1 Sig: USE 1SPRAY IN 1 NOSTRIL EVERY MORNING, ALTERNATE NOSTRILS documented in this encounter Plan of Treatment Upcoming Encounters Date Type Department Care Team (Late st Contact Info) Description 01/20/2024 9:50 AM EDT Anticoagulation Pharmacy, [facility] [address] [place] [address] [facility] [address] [place] [address] 04/05/2024 8:00 AM EDT Office Visit Cardiology, [facility] [address] [place] [address] Aris Potter PA-C [address] [place] [address] 04/19/2024 9:00 AM EDT Office Visit Sleep Disorders Ctr [facility] [address] [place] [phone] Janeen Montaño CRNP [address] [place] [address] 07/13/2024 8:20 AM EST Office Visit Family Practice [facility] [address] [place] [address] Chico Villarreal MD [address] [place] [address] Health Maintenance Due Date Last Done Comments [...] as of this encounter Visit Diagnoses Diagnosis Closed wedge compression fracture of L1 vertebra, initial encounter (HCC) documented in this encounter Advance Directives Documents on File Type Date Recorded 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
--- OUTSIDE RECORDS SUMMARY | 2024-03-05 22:47 | External Medical Summary | Summary of Care ---
Author Name Unknown Organization [facility] Address [address] [place] [address] Phone [phone] Care Team Providers Care Master Deputy Sheriff Court Security Name Role Phone Chico Villarreal MD Primary Care Provider + Reason for Visit * Reason Comments eRx-Medication Refill Encounter Details Date Type Department Care Team (Late st Contact Info) Description 01/23/2024 Refill Family Practice [facility] [address] [place] [address] Chico Villarreal MD [address] [place] [address] Allergies No known active allergiesdocumented as of this encounter (statuses as of 01/25/2024) Medications Medication Sig Dispensed Refills Start Date End Date Status MULTIVITAMINS PO TABS one daily Active ASPIRIN 81 MG PO CHEW take one tablet daily 100 Tab 3 010 Active DOCUSATE SODIUM 100 MG PO CAPSIndications:C onstipation One pill by mouth daily for constipation 90 Cap 3 013 Active Additional Information Patient not taking.Informant: Spouse, Reported on 11/11/2023 Blood Glucose Monitoring Suppl (Chibwe ULTRA SYSTEM) W/DEVICE KITIndications:DM type 2, goal A1c below 7 Use up to 4/day - Type II diabetes- #E11.9 1 Kit 0 016 Active Advanced-TecTOUCH DELICA LANCETS 33G MISCIndications:T ype 2 diabetes [...] hemoglobin A1c goal of less than 8.0% ([facility]) TAKE 1 TABLET EVERY MORNING AND 2 TABLETS WITH DINNER DAILY (DOSE INCREASE) 270 Tablet 2 023 Active Mirtazapine 15 MG Oral Tablet [...] hemoglobin A1c goal of less than 8.0% ([facility]) Take 1 Tablet by mouth in the morning. 30 Tablet 11 024 Active OneTouch Ultra Test In Vitro Strip (Glucose Blood)Indications :Type 2 diabetes mellitus with hemoglobin A1c goal of less than 8.0% ([facility]) TEST DAILY DIRECTED 100 Strip 3 024 Active Calcitonin ([place]) 200 UNIT/ACT Nasal Solution (Fortical)Indicat ions:Closed wedge compression fracture of L1 vertebra, initial encounter ([facility]) USE 1 SPRAY IN 1 NOSTRIL EVERY MORNING, ALTERNATE NOSTRILS 3.7 mL 1 Active traMADol HCl 50 MG Oral Tablet (Ultram) Take 1 Tablet by mouth 2 times a day as needed (pain). 60 Tablet 024 Active Pantoprazole Sodium 40 MG Oral Tablet Delayed Release (Protonix) TAKE 1 TABLET BY MOUTH EVERY MORNING 30 MINUTES BEFORE THE FIRST MEAL OF THE DAY. DO NOT CRUSH, SPLIT OR CHEW THE TABLET. 90 Tablet 1 024 Active Pantoprazole Sodium 40 MG Oral Tablet Delayed Release (Protonix) Take 1 Tablet by mouth in the morning. 30 minutes before the first meal of the day. Do not crush, split or chew the tablet. 90 Tablet 1 023 2023 Discontinued traMADol HCl 50 MG Oral Tablet (Ultram) Take 1 Tablet by mouth in the morning and 1 Tablet before bedtime. 60 Tablet 024 2023 Discontinued documented as of this encounter (statuses as of 01/25/2024) Active Problems Problem Noted Date Diagnosed Date Leg ulcer, right, limited to breakdown of skin 0 12/30/2023 Lumbar degenerative disc disease 10/15/2023 Symptomatic care patient 10/15/2023 Adult failure to thrive 10/15/2023 Permanent atrial fibrillation 03/14/2020 Secondary polycythemia 03/14/2020 DNR (do not resuscitate) 05/24/2019 Overview: 05/24/19 signed/scanned [facility]. Redone 02/14/20. Coronary artery disease invo lving [place] coronary artery of [place] heart without angina pectoris 04/19/2019 Dyslipidemia 04/11/2019 Acquired hypothyroidism 04/11/2019 Venous stasis dermatitis 12/10/2018 Obesity, Class I, BMI 30.0-34.9 (see actual BMI) 05/21/2018 DM type 2 with diabetic peripheral neuropathy Well adult exam 04/22/2017 Overview: 11/07 EGD [facility] mod gastritis chronic. 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 Authorizing Provider: CHICO VILLARREAL Pantoprazole Sodium 40 MG Oral Tablet Kera*90 Tab*1 Sig: TAKE 1 TABLET BY MOUTH EVERY MORNING 30 MINUTES BEFORE THE FIRST MEAL OF THE DAY. DO NOT CRUSH, SPLI T OR CHEW THE TABLET. Authorizing Provider: CHICO VILLARREAL Ordering User: TASNEEM SPENCER * [facility] 12[facility]04 PM EDTPending Prescriptions: Disp Refills traMADol HCl 50 MG Oral Tablet (Ultram) 60 Tab*0 Sig: Take 1 Tablet by mouth 2 times a day as needed (pain). Signed Prescriptions: Disp Refills Pantoprazole Sodium 40 MG Oral Tablet Kera*90 Tab*1 Sig: TAKE 1 TABLET BY MOUTH EVERY MORNING 30 MINUTES BEFORE THE FIRST MEAL OF THE DAY. DO NOT CRU SH, SPLIT OR CHEW THE TABLET. Authorizing Provider: CHICO VILLARREAL Ordering User: TASNEEM SPENCER * Telephone Encounter - Tasneem Allison [facility] - 01/25/2024 12:04 PM EDTPending Prescriptions: Disp Refills traMADol HCl 50 MG Oral Tablet (Ultram) 60 Tab*0 Sig: Take 1 Tablet by mouth 2 times a day as needed (pain). Signed Prescriptions: Disp Refills Pantoprazole Sodium 40 MG Oral Tablet Kera*90 Tab*1 Sig: TAKE 1 TABLET BY MOUTH EVERY MORNING 30 MINUTES BEFORE THE FIRST MEAL OF THE DAY. DO NOT CRU SH, SPLIT OR CHEW THE TABLET. Authorizing Provider: CHICO VILLARREAL Ordering User: TASNEEM SPENCER * Telephone Encounter - Tasneem Allison [facility] - 01/25/2024 12:03 PM EDT I have reviewed the patients controlled substance dispensing history in the Prescription Drug Monitoring Program in compliance with the [facility] regulations before prescribing a controlled substance. PDMP checked on 01/25/2024. Pending Prescriptions: Disp Refills traMADol HCl 50 MG Oral Tablet (Ultram) [*60 Tab*0 Signed Prescriptions: Disp Refills Pantoprazole Sodium 40 MG Oral Tablet Kera*90 Tab*1 Sig: TAKE 1 TABLET BY MOUTH EVERY MORNING 30 MINUTES BEFORE THE FIRST MEAL OF THE DAY. DO NOT CRUSH, SPLIT OR CHEW THE TABLET. Authorizing Provider: CHICO VILLARREAL Ordering User: TASNEEM SPENCER Last Visit: 12/30/2023 (in office), 02/02/2020 (telemedicine) Next Visit: 07/13/2024 Date medication was last filled: 12/23/23 Date medication is due for refill: 01/21/24 Pharmacy: [facility] [id number] [place] Is this request for a controlled substance? Yes and Urine Drug Screen Not completed Toxicology results: No results found. However, due to the size of the patient record, not all encounters were searched.Please check Results Review for a complete set of results. Please approve if appropriate. Thank You, Tasneem Spencer [facility] Clinical Pharmacist [facility] ([facility]) 01/25/2024, 12:03 PM * Telephone Encounter - Tova GarciaMustapha - 01/25/2024 7:43 AM EDT Did you pend patient's preferred pharmacy and medication before forwarding?yes Pharmacy: [facility] [id number] [place] Pending Prescriptions: Disp Refills traMADol HCl 50 MG Oral Tablet (Ultram) [*60 Tab*0 Sig: TAKE 1 TABLET BY MOUTH EVERY MORNING AND 1 TABLET BEFORE BEDTIME Pantoprazole Sodium 40 MG Oral Tablet Del*90 Tab*1 Sig: TAKE 1 TABLET BY MOUTH EVERY MORNING 30 MINUTES BEFORE THE FIRST MEAL OF THE DAY. DO NOT CRUSH, SPLIT OR CHEW THE TABLET. Last Visit: 12/30/2023 (in office), 02/02/2020 (telemedicine) Next Visit: 07/13/2024 If no future appointments scheduled, and last appointment is greater than a year ago, please schedule patient for a follow-up appointment Last date the medication was ordered: 12.23.23 Is this request for a controlled substance?Yes, What was the last refill date 12.22.24 w/ quantity 60and dosage 1nid and Urine Drug Screen Not completed Urine Drug Screen:No results found. However, due to the size of the patient record, not all encounters were searched. Please check Results Review for a complete set of results. Patient Phone Numbers Labs: Lab Results Component Value Date/Time CREAT 1.3 (H) 01/14/2024 09:16 AM CREAT 1.0 01/29/2023 12:00 AM CREAT 1.1 09/26/2019 08:52 AM POTASSIUM 4.5 01/14/2024 09:16 AM POTASSIUM 4.4 01/29/2023 12:00 AM POTASSIUM [...] Description 02/17/2024 9:50 AM EDT Anticoagulation Pharmacy, [facility] [address] [place] [address] [facility] [address] [place] [address] 04/05/2024 8:00 AM EDT Office Visit Cardiology, [facility] [address] [place] [address] Aris Potter PA-C [address] [place] [address] 04/19/2024 9:00 AM EDT Office Visit Sleep Disorders Ctr [facility] [address] [place] [phone] Janeen Montaño CRNP [address] [place] [address] 07/13/2024 8:20 AM EST Office Visit Family Practice [facility] [address] [place] [address] Chico Villarreal MD [address] [place] [phone] Health Maintenance Due Date Last Done Comments [...] Documents on File Type Date Recorded 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
--- OUTSIDE RECORDS SUMMARY | 2024-03-05 22:47 | External Medical Summary | Summary of Care ---
Author Name Unknown Organization [facility] Address [address] [place] [address] Phone [phone] Care Team Providers Care Pole Climber Name Role Phone Chico Scherer MD Primary Care Provider + Reason for Visit * Reason Onset Date Comments Test Results 01/29/2024 Encounter Details Date Type Department Care Team (Late st Contact Info) Description 01/29/2024 [address], [facility] [address] [facility] [address] Aris Potter PA-C [address] [place] [address] Test Results Allergies No known active allergiesdocumented as of this encounter (statuses as of 01/29/2024) Medications Medication Sig Dispensed Refills Start Date [...] Reported on 11/11/2023 Blood Glucose Monitoring Suppl (3LeafUCH ULTRA SYSTEM) W/DEVICE KITIndications:DM type 2, goal A1c below 7 Use up to 4/day - Type II diabetes- #E11.9 1 Kit 0 09/13/19 16 Active ONETOUCH DELICA LANCETS 33G MISCIndications:T ype 2 diabetes mellitus with hemoglobin A1c goal of less than 7.0% ([facility]) Ck FS daily as needed [...] as of this encounter (statuses as of 01/29/2024) Active Problems Problem Noted Date Diagnosed Date Leg ulcer, right, limited to breakdown of skin 0 12/30/2023 Lumbar degenerative disc disease 10/15/2023 Symptomatic care patient 10/15/2023 Adult failure to thrive 10/15/2023 Permanent atrial fibrillation 03/14/2020 Secondary polycythemia 03/14/2020 DNR (do not resuscitate) 05/24/2019 Overview: 05/24/19 signed/scanned [facility]. Redone 02/14/20. Coronary artery disease invo lving [place] coronary artery of [place] heart without angina pectoris 04/19/2019 Dyslipidemia 04/11/2019 Acquired hypothyroidism 04/11/2019 Venous stasis dermatitis 12/10/2018 Obesity, Class I, BMI 30.0-34.9 (see actual BMI) 05/21/2018 DM type 2 with diabetic peripheral neuropathy Well adult exam 04/22/2017 Overview: 11/07 EGD [facility] mod gastritis chronic. 11/04 EMG-Abnormal study, although [...] as of this encounter (statuses as of 01/29/2024) Resolved Problems Problem Noted Date Diagnosed Date [...] 05/02/2010 03/14/2020 Anticoagulation management encounter 05/02/2010 03/14/2020 [facility] current use of ant icoagulant therapy 05/02/2010 [...] as of this encounter (statuses as of 01/29/2024) Immunizations Name Administration Dates Next Due COVID-19 [...] 01/29/2024 10:36 AM EDT Sent patient a [employer] message to make aware. Lab ordered. Prescriptions [...] Description 02/17/2024 9:50 AM EDT Anticoagulation Pharmacy, [facility] [address] [place] [address] Jae [facility] [address] [place] [address] 04/05/2024 8:00 AM EDT Office Visit Cardiology, [facility] [address] [place] [address] Aris Potter PA-C [address] [place] [phone] 04/19/2024 9:00 AM EDT Office Visit Sleep Disorders Ctr [facility] [address] [place] [phone] Janeen Montaño CRNP [address] [place] [phone] 07/13/2024 8:20 AM EST Office Visit Family Practice 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
--- OUTSIDE RECORDS SUMMARY | 2024-03-05 22:47 | External Medical Summary | Summary of Care ---
Author Name Unknown Organization [facility] Address [address] [place] [address] Phone [phone] Care Team Providers Care Furrier Shop Supervisor Name Role Phone Chico Scherer MD Primary Care Provider + Reason for Visit * Reason Comments Acute Wound on RLE. s tates it seems to be getting darker. Has wound clinic appointment at [facility] on Sunday 12/31 Encounter Details Date Type Department Care Team (Late st Contact Info) Description 12/30/2023 12:40 PM EDT Office Visit Family Practice [facility] [address] [facility] [place] [address] Chico Scherer MD 132 [facility] [place] [address] Type 2 diabetes mellitus with hemoglobin A1c goal of less than 8.0% ([facility])*; Pressure injury of sacral region, stage 1; Leg ulcer, right, limited to breakdown of skin ([facility]); DM type 2 with diabetic peripheral neuropathy ([facility]); Edema of both lower extremities Allergies No known active allergiesdocumented as of this encounter (statuses as of 01/19/2024) Medications Medication Sig Dispensed Refills Start Date End Date Status MULTIVITAMINS PO TABS one daily Active ASPIRIN 81 MG PO CHEW take one tablet daily 100 Tab 3 010 Active DOCUSATE SODIUM 100 MG PO CAPSIndications:C onstipation One pill by mouth daily for constipation 90 Cap 3 013 Active Additional Information Patient not taking.Informant: Spouse, Reported on 11/11/2023 Blood Glucose Monitoring Suppl (Nu-B-2B SYSTEM) W/DEVICE KITIndications:DM type 2, goal A1c below 7 Use up to 4/day - Type II diabetes- #E11.9 1 Kit 0 016 Active Innovus PharmaTOUCH DELICA LANCETS 33G MISCIndications:T ype 2 diabetes mellitus with hemoglobin A1c goal of less than 7.0% ([facility]) Ck FS daily as needed [...] hemoglobin A1c goal of less than 8.0% ([facility]) TAKE 1 TABLET EVERY MORNING AND [...] A MEAL 90 Tablet 3 024 Active Additional Information Patient taking differently: 10 [...] hemoglobin A1c goal of less than 8.0% ([facility]) Take 1 Tablet by mouth in the morning. 30 Tablet 11 024 Active OneTouch Ultra Blue In Vitro Strip (Glucose Blood)Indications :Type 2 diabetes mellitus with hemoglobin A1c goal of less than 8.0% ([facility]) TEST FS daily DIRECTED E 11.9 100 Strip 3 022 2023 Discontinued Calcitonin ([place]) 200 UNIT/ACT Nasal Solution (Fortical)Indicat ions:Closed wedge compression fracture of L1 vertebra, initial encounter ([facility]) Administer 1 Willard into one nostril in the morning. alternate nostrils.. 3 mL 1 03/12/2 024 2023 Discontinued documented as of this encounter (statuses as of 01/19/2024) Active Problems Problem Noted Date Diagnosed Date Leg ulcer, right, limited to breakdown of skin 0 12/30/2023 Lumbar degenerative disc disease 10/15/2023 Symptomatic care patient 10/15/2023 Adult failure to thrive 10/15/2023 Permanent atrial fibrillation 03/14/2020 Secondary polycythemia 03/14/2020 DNR (do not resuscitate) 05/24/2019 Overview: 05/24/19 signed/scanned [facility]. Redone 02/14/20. Coronary artery disease invo lving morongo coronary artery of morongo heart without angina pectoris 04/19/2019 Dyslipidemia 04/11/2019 Acquired hypothyroidism 04/11/2019 Venous stasis dermatitis 12/10/2018 Obesity, Class I, BMI 30.0-34.9 (see actual BMI) 05/21/2018 DM type 2 with diabetic peripheral neuropathy Well adult exam 04/22/2017 Overview: 11/07 EGD [facility] mod gastritis chronic. 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 therapy [...] as of this encounter (statuses as of 01/19/2024) Immunizations Name Administration Dates Next Due COVID-19 [...] Sign Reading Time Taken Comments Blood Pressure 108/62 12/30/2023 12:06 PM EDT Pulse 88 12/30/2023 12:06 PM EDT Temperature 36.8 C (98.3 F) 12/30/2023 12:06 PM E DT Respiratory Rate 16 12/30/2023 12:06 PM EDT Oxygen Saturation 97% 12/30/2023 12:06 PM EDT Inhaled Oxygen Concentration - - Weight 117.5 kg (259 lb) 12/30/2023 12:06 PM EDT Height - - Body Mass Index 37.16 10/16/2023 3:20 PM EST documented in this encounter Progress Notes * Chico Scherer MD - 12/30/2023 1:00 PM EDT SUBJECTIVE: Brionna Bone is a 83 year old male here for Acute (Wound on RLE. states it seems to be getting darker. Has wound clinic appointment at [facility] on Sunday 12/31) . Here for f/u with , Maria Esther In wheelchair. Strength improving, can now stand, assist with transfers, unable to walk on own. Newpressure ulcer right buttock Notes ongoing LE edema with weight gain, down 1 lb this week w/diuretic. Has RLE ulcer in chavez, oozing clear fluid No fever, chills, chest pain, shortness of breath, headache, nausea, vomit, diarrhea, constipation or vision changes Nausea improved, eating more, eating more sweets, sugars now 200s-300s, off of Jardiance when lost his weight. Physical: BP 108/62 | Pulse 88 | Temp 36.8 C (98.3 F) (Tympanic) | Resp 16 | Wt 117.5 kg (259 lb) | SpO2 97% | BMI 37.16 kg/m | BSA 2.41 m General-No apparent Distress Head, Eyes, Ears, Nose, Throat--Normocephalic, atraumatic Neck-Supple Lymph-no lymphadenopathy Lungs-Clear to Auscultation bilaterally Cardiovascular--Regular rate & Rhythm, +s1, s2, no murmur Abdomen-soft, nontender, nondistended + bowel sounds Skin+skin breakdown right [id number] or so Right buttock two pressure ulcer stage 1, 2cm and 1.5cm. Extremities--no edema Neuro-alert & oriented x3 (E11.9) Type 2 diabetes mellitus with hemoglobin A1c goal of less than 8.0% (HCC) (primary encounter diagnosis) Plan: HEMOGLOBIN A1C, ALBUMIN / CREATININE RATIO, URINE, LIPID PANEL WITH DIRECT LDL IF TG IS HIGH, Empagliflozin 10 MG Oral Tablet (Jardiance) Restart Jardiance counseled on diet/exercise (L89.151) Pressure injury of sacral region, stage 1 Plan: needs new mattress topper (L97.911) Leg ulcer, right, limited to breakdown of skin (HCC) Plan: bandage, seeing Wound clinic in 2 d Starting [facility] RN, restarting No sign active infection (E11.42) DM type 2 with diabetic peripheral neuropathy (HCC) Plan: as above (R60.0) Edema of both lower extremities Plan: keep elevated Labs today for cardiology Cc: Aris Potter (This note was completed using the dictation program Fluency Direct. As such, there may be misspellings, word substitutions, or other variations that should not change the essence of the clinical content of this encounter note.If there is need for further clarification, please direct questions to the provider listed above.) Chico Scherer MD documented in this encounter Nursing Notes * Shanel Cazares LPN - 12/30/2023 12:06 PM EDT The patient has been properly identified by confirmation of name and date of . Chief Complaint Patient presents with Acute Wound on RLE. states it seems to be getting darker. Has wound clinic appointment at [facility] on Sunday 12/31 documented in this encounter Plan of Treatment Upcoming Encounters Date Type Department Care Team (Late st Contact Info) Description 01/20/2024 9:50 AM EDT Anticoagulation Pharmacy, [facility] [address] [place] [address] [facility] 132 [facility] [place] [id number] 04/05/2024 8:00 AM EDT Office Visit Cardiology, [facility] [address] [place] [address] Aris Potter PA-C [address] [place] [phone] 04/19/2024 9:00 AM EDT Office Visit Sleep Disorders Ctr [facility] [address] [place] [phone] Janeen Montaño CRNP [address] [place] [address] 07/13/2024 8:20 AM EST Office Visit Family Practice [facility] [address] [place] [address] Chico Scherer MD [address] [place] [address] Health Maintenance Due Date Last Done Comments [...] Not on filedocumented as of this encounter Results * (ABNORMAL) ALBUMIN / CREATININE RATIO, URINE (12/30/2023 1:28 PM EDT) Albumin, Random Urine 4.13 mg/dL 12/30/2023 5:53 PM EDT [facility] Creatinine, Random Urine 48 mg/dL 12/30/2023 5:53 PM EDT [facility] Albumin / Creatinine Ratio, Urine 86(H) <30 mg/g Creat 12/30/2023 5:53 PM EDT [facility] Urine Urine specimen obtained by clean catch procedure / Unknown Non-blood Collection / Unknown 12/30/2023 1:28 PM EDT 12/30/2023 1:28 PM EDT Narrative [facility] - 12/30/2023 5:53 PM EDT Normal: <30 mg/g creatinine High: 30-300 mg/g creatinine Very High: >300 mg/g creatinine Nephrotic: >2200 mg/g creatinine Chico Scherer MD LAB URINE ORDERA [facility] Organization Address City/State/ZIP Co de Phone Number [facility] [address] [place] [address] * (ABNORMAL) LIPID PANEL WITH DIRECT LDL IF TG IS HIGH (12/30/2023 1:20 PM EDT) Triglycerides 210(H) <=174 mg/dL 12/30/2023 7:27 PM EDT [facility] Comment: Triglyceride Reference Ranges (mg/dL): <150 Acceptable 150-174 Borderline high 175-499 High >=500 Very high Cholesterol 122 <200 mg/dL 12/30/2023 7:27 PM EDT [facility] Comment: Total Cholesterol Reference Ranges (mg/dL): <200 Desirable 200-239 Borderline high >=240 High HDL Cholesterol 34(L) >39 mg/dL 7:27 PM EDT [facility] Comment: HDL Cholesterol Reference Ranges (mg/dL): >=60 High (Desirable) <50 Low (Undesirable) For Females <40 Low (Undesirable) For Males Non-HDL Cholesterol 88 <=159 mg/dL 12/30/2023 7:27 PM EDT [facility] Comment: Non-HDL Cholesterol Reference Range (mg/dL): <100 Target level for high risk ASCVD patient <130 Optimal for general population 130-159 Near optimal for general population 160-189 Borderline High 190-219 High >=220 Very High Blood Venous blood specimen / Unknown Venipuncture / Unknown 12/30/2023 1:20 PM EDT 12/30/2023 1:20 PM EDT Chico Scherer MD LAB BLOOD ORDERA BLES Performing Organization Address [facility] de Phone Number LAB[facility]ATORY [place] [address] [place] [address] * (ABNORMAL) HEMOGLOBIN A1C (12/30/2023 1:20 PM EDT) Hemoglobin A1C 6.8(H) 4.0 - 5.6 % 12/30/2023 8:24 PM EDT [facility] Comment:The use of HbA1c to monitor glycemic status is based on normal hemoglobin and HbA composition. This test should not be used in patients with abnormal hemoglobin that affects the half life of the red blood cell or the in vivo glycation rates. Estimated Average Glucose 148(H) <126 mg/dL 12/30/2023 8:24 PM EDT [facility] Blood Venous blood specimen / Unknown Venipuncture / Unknown 12/30/2023 1:20 PM EDT 12/30/2023 1:20 PM EDT Chico Scherer MD LAB BLOOD ORDERA BLES Performing Organization Address City/[facility]/ZIP Co de Phone Number [facility] [address] [place] [address] documented in this encounter Visit Diagnoses Diagnosis Type 2 diabetes mellitus with hemoglobin A1c goal of less than 8.0% ([facility])- Primary Pressure injury of sacral region, stage 1 Leg ulcer, right, limited to breakdown of skin (HCC) DM type 2 with diabetic peripheral neuropathy (HCC) Type II or unspecified type diabetes mellitus with neurological manifestations, not stated as uncontrolled Edema of both lower extremities documented in this encounter Advance Directives Documents on File Type Date Recorded Patient Unit Technician Expl anation POLST 10/01/2023 8:31 AM POLST (Pierce ited DNR) Advance Directives and Living Will 03/11/2017 LIVING WILL Power of Net Ui Developer 03/11/2017 [facility] Care Teams Furrier Shop Supervisor Relationship Specialty Start Date End Date Chico Scherer MD [address] [place] [address] PCP - General Family Medicine 08/27/16 documented as of this encounter"
--- OUTSIDE RECORDS SUMMARY | 2024-03-05 22:47 | External Medical Summary ---
Author Name Unknown Address Unknown Organization [id number] [place] [id number] [place] [address] Laboratory Report Ordering Provider Test Date Status TAMIE NGUYEN 01/14/2024 09:16:29 Final Observation Date Value Abnormality Reference (Units ) Status BUN 01/14/2024 09:16:29 42 Above high normal 6-20 (mg/dL) Final Creatinine 01/14/2024 09:16:29 1.3 Above high normal 0.6-1.2 (mg/dL) Final Glomerular filtration rate/1.73 sq M.predicted [Volume Rate/Area] in Serum, Plasma or Blood by Creatinine-based formula (CKD-EPI) 01/14/2024 09:16:29 53 Below low normal >=60 (mL/min) Final eGFR is calculated based on the CKD-EPI 2020 equation Sodium 01/14/2024 09:16:29 136 135-146 (m mol/L) Final Potassium 01/14/2024 09:16:29 4.5 3.5-5.1 (m mol/L) Final Cl 01/14/2024 09:16:29 97 Below low normal 98- 107 (mmol/L) Final CO2 01/14/2024 09:16:29 24 22-32 (mmo l/L) Final Anion gap 01/14/2024 09:16:29 15 7-15 (mmol /L) Final Glucose 01/14/2024 09:16:29 135 Above high normal 70 -120 (mg/dL) Final Calcium 01/14/2024 09:16:29 9.4 8.4-10.2 ( mg/dL) Final Performing Location [facility] [place] [address] [place] [address]
--- OUTSIDE RECORDS SUMMARY | 2024-03-05 22:47 | External Medical Summary | Summary of Care ---
Author Name Unknown Organization [facility] Address [address] [place] [address] Phone [phone] Care Team Providers Care Bunk Assembler Name Role Phone Chico Scherer MD Primary Care Provider + Reason for Visit * Reason Comments Outpatient Testing Encounter Details Date Type Department Care Team (Late st Contact Info) Description 01/14/2024 9:50 AM EDT Laboratory Laboratory, [facility] [address] [place] [phone] [facility] [address] [place] [address] HTN, goal below 140/90; Encounter for monitoring diuretic therapy Allergies No known active allergiesdocumented as of this encounter (statuses as of 01/14/2024) Medications Medication Sig Dispensed Refills Start Date [...] Reported on 11/11/2023 Blood Glucose Monitoring Suppl ([employer] ScienceUCH ULTRA SYSTEM) W/DEVICE KITIndications:DM type 2, goal A1c below 7 Use up to 4/day - Type II diabetes- #E11.9 1 Kit 0 09/13/19 16 Active ONETOUCH DELICA LANCETS 33G MISCIndications:Ty pe 2 diabetes mellitus with hemoglobin A1c goal of less than 7.0% ([facility]) Ck FS daily as needed E11.9 [...] A1c goal of less than 8.0% ([facility]) TAKE 1 TABLET EVERY MORNING AND 2 TABLETS WITH DINNER DAILY (DOSE INCREASE) 270 Tablet 2 06/11/20 23 Active Pantoprazole Sodium 40 MG Oral Tablet Delayed Release (Protonix) Take 1 Tablet by mouth in the morning. 30 minutes before the first meal of the day. Do not crush, split or chew the tablet. 90 Tablet 1 08/11/20 23 Active Mirtazapine 15 MG Oral Tablet [...] A1c goal of less than 8.0% ([facility]) Take 1 Tablet by mouth in the morning. 30 Tablet 11 12/30/19 24 Active OneTouch Ultra Test In Vitro Strip (Glucose Blood)Indications: Type 2 diabetes mellitus with hemoglobin A1c goal of less than 8.0% ([facility]) TEST DAILY DIRECTED 100 Strip 3 01/02/20 24 Active Calcitonin ([place]) 200 UNIT/ACT Nasal Solution (Fortical)Indicati ons:Closed wedge compression fracture of L1 vertebra, initial encounter ([facility]) USE 1 SPRAY IN 1 NOSTRIL EVERY MORNING, ALTERNATE NOSTRILS 3.7 mL 1 01/08/20 24 Active documented as of this encounter (statuses as of 01/14/2024) Active Problems Problem Noted Date Diagnosed Date Leg ulcer, right, limited to breakdown of skin 0 12/30/2023 Lumbar degenerative disc disease 10/15/2023 Symptomatic care patient 10/15/2023 Adult failure to thrive 10/15/2023 Permanent atrial fibrillation 03/14/2020 Secondary polycythemia 03/14/2020 DNR (do not resuscitate) 05/24/2019 Overview: 05/24/19 signed/scanned [facility] [employer]. Redone 02/14/20. Coronary artery disease invo lving [place] coronary artery of [place] heart without angina pectoris 04/19/2019 Dyslipidemia 04/11/2019 Acquired hypothyroidism 04/11/2019 Venous stasis dermatitis 12/10/2018 Obesity, Class I, BMI 30.0-34.9 (see actual BMI) 05/21/2018 DM type 2 with diabetic peripheral neuropathy Well adult exam 04/22/2017 Overview: 11/07 EGD [facility] mod gastritis chronic. 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 05/02/2010 [...] as of this encounter (statuses as of 01/14/2024) Immunizations Name Administration Dates Next Due COVID-19 [...] Description 01/20/2024 9:50 AM EDT Anticoagulation Pharmacy, [facility] [address] [place] [address] [facility] 132 [facility] [place] [phone] 04/05/2024 8:00 AM EDT Office Visit Cardiology, [facility] [address] [place] [address] Aris Potter PA-C [address] [place] [phone] 04/19/2024 9:00 AM EDT Office Visit Sleep Disorders Ctr [facility] [address] [place] [phone] Janeen Montaño CRNP [address] [place] [phone] 07/13/2024 8:20 AM EST Office Visit Family Practice [facility] [address] [place] [address] Chico Scherer MD [address] [place] [address] Pending Results Name Type Priority Associated Diagnoses Date /Time BASIC METABOLIC PANEL Lab Routine HTN, goal below 140/90 Encounter for monitoring diuretic therapy 01/14/2024 9:16 AM EDT Health Maintenance Due Date Last [...] as of this encounter Visit Diagnoses Diagnosis HTN, goal below 140/90 Unspecified essential hypertension Encounter for monitoring diuretic therapy Encounter for therapeutic drug monitoring documented in this encounter Advance Directives Documents on File Type Date Recorded Patient Insolvency Practitioner Expl anation POLST 10/01/2023 8:31 AM POL (Pierce ited DNR) Advance Directives and Living Will 03/11/2017 LIVING WILL Power of Bread Packer 03/11/2017 [facility] Care Teams Bunk Assembler Relationship Specialty Start Date End Date Chico Scherer MD [address] [place] [address] PCP - General Family Medicine 08/27/16 documented as of this encounter
[2024-03-05] MEDS: dilTIAZem HCl 5 MG/ML 5 ML VIAL IV ONE (23:01)
[2024-03-05] MEDS: dilTIAZem HCl 5 MG/ML 5 ML VIAL IV STA (23:01)
--- NOTE | 2024-03-05 23:27 | Emergency Department Note ---
History of Present Illness General Chief complaint: Shortness of Breath/Dyspnea Stated complaint: SOB, COUGHING UP FLEM/CONGESTION Time Seen by Provider: 03/05/24 22:43 History of Present Illness This 83-year-old male presents the ER complaining of increasing shortness of breath with cough for the past 3 days. He is unsure if his weight has changed. He currently resides at the skilled nursing. He is chronically on Coumadin for A- fib. Patient denies chest pain, fevers, abdominal pain, increasing leg swelling. Patient cannot tell his heart rate is elevated at this time. Home Medications Medication Instructions Recorded Confirmed Type alfuzosin 10 mg tablet,extended 10 mg PO QPM 09/29/18 03/06/24 History release 24 hr allopurinol 300 mg tablet 300 mg PO QAM 09/29/18 03/06/24 History cholecalciferol (vitamin D3) 25 2,000 units PO QAM 09/29/18 03/06/24 History mcg (1,000 unit) tablet (Vitamin D3) colchicine 0.6 mg tablet 0.6 mg PO UD PRN gout flare 09/29/18 03/06/24 History digoxin 250 mcg (0.25 mg) tablet 125 mcg PO 3XWK 09/29/18 03/06/24 History fluticasone propionate 50 2 spray intranasal BID PRN Nasal 09/29/18 03/06/24 History mcg/actuation nasal Congestion spray,suspension (Flonase Allergy Relief) levothyroxine 88 mcg tablet 88 mcg PO QAM 09/29/18 03/06/24 History metoprolol succinate 50 mg See Rx Instructions .Route .COMPLEX 09/29/18 03/06/24 History tablet,extended release 24 hr multivitamin 1 tab PO QAM 09/29/18 03/06/24 History potassium chloride 20 mEq 20 meq PO QAM 09/29/18 03/06/24 History tablet,extended release(part/cryst) pravastatin 40 mg tablet 40 mg PO HS 09/29/18 03/06/24 History tramadol 50 mg tablet 50 mg PO BID 09/29/18 03/06/24 History warfarin 5 mg tablet See Rx Instructions .Route .COMPLEX 09/29/18 03/06/24 History triamcinolone acetonide 0.1 % 1 applic topical BID PRN Skin 06/18/21 03/06/24 History topical cream Irritation mupirocin 2 % topical ointment 1 applic topical BID PRN Skin 12/06/21 03/06/24 History Irritation pantoprazole 40 mg tablet,delayed 40 mg PO QAM 08/15/23 03/06/24 History release acetaminophen 500 mg capsule 1,000 mg PO Q6H PRN Pain 10/20/23 03/06/24 History calcium carbonate (Calcium Antacid) 400 mg PO BID PRN gerd 10/20/23 03/06/24 History famotidine 20 mg tablet 20 mg PO QAM 10/20/23 03/06/24 History finasteride 5 mg tablet 5 mg PO QAM 10/20/23 03/06/24 History lactulose 10 gram/15 mL oral 10 g PO BID PRN Constipation 10/20/23 03/06/24 History solution mirtazapine 15 mg tablet 15 mg PO HS 10/20/23 03/06/24 History naloxone 4 mg/actuation nasal spray 4 mg intranasal UD PRN overdose 10/20/23 03/06/24 History ondansetron HCl 4 mg tablet 4 mg PO Q8H PRN Nausea 10/20/23 03/06/24 History sodium chloride 0.65 % nasal spray 1 spray intranasal BID PRN Dry 10/20/23 03/06/24 History aerosol (Saline Mist) Nasal Passages aspirin 81 mg tablet,delayed 81 mg PO QAM 10/21/23 03/06/24 History release sennosides 8.6 mg capsule (senna) 8.6 mg PO BID PRN constipation #30 10/21/23 03/06/24 Rx caps polyethylene glycol 3350 17 17 g PO DAILY PRN Constipation 11/20/23 03/06/24 History gram/dose oral powder (Miralax) metformin 500 mg tablet,extended See Rx Instructions .Route .COMPLEX 01/01/24 03/06/24 History release 24 hr spironolactone 25 mg tablet See Rx Instructions .Route .COMPLEX 01/01/24 03/06/24 History furosemide 80 mg tablet (Lasix) See Rx Instructions .Route .COMPLEX 01/21/24 03/06/24 History albuterol sulfate 90 mcg/actuation 2 puff inhalation QID PRN 03/06/24 03/06/24 History aerosol inhaler Shortness Of Breath Or Wheezing Allergies Allergy/AdvReac Type Severity Reaction Status Date / Time adhesive AdvReac Intermediate sensitive Verified 03/06/24 00:25 skin to strong adhesives Past Med/Surg History Problem List (Updated 03/06/24 @ 01:32 by Jessica Rojas PA-C) Pleural effusion on left (Acute) Pleural effusion on right (Acute) Traumatic open wound of left lower leg (Acute) Chronic venous insufficiency (Chronic) Traumatic open wound of right lower leg (Acute) Lesion of bladder Blister of finger Gross hematuria Traumatic open wound of lower leg Stage III pressure ulcer of left elbow (Acute) Pressure ulcer of right buttock, stage 3 (Acute) Encounter for pre-operative examination Healing pressure ulcer stage III Hyponatremia (Acute) Acute UTI (urinary tract infection) (Acute) Adverse drug reaction (Acute) MASON (acute kidney injury) (Acute) Generalized weakness (Acute) Encephalopathy Acute hyponatremia (Acute) Urinary tract infection (Acute) Patella, chondromalacia Knee pain, chronic Encephalopathy LBBB (left bundle branch block) (Acute) Altered mental status (Acute) Atrial fibrillation with RVR (Acute) History of diabetic ulcer of foot BPH (benign prostatic hyperplasia) (Chronic) Gout (Chronic) HLD (hyperlipidemia) (Chronic) HTN (hypertension) (Chronic) Weakness (Acute) recent generalized muscle weakness; notes poor oral intake since 06/2023 Atrial fibrillation (Chronic) follows with [facility] Card[facility]; on coumadin Dyslipidemia (Chronic) Hypothyroidism (Chronic) History of adenomatous polyp of colon (Chronic) Diabetes mellitus, type 2 (Chronic) NIDDM History of basal cell carcinoma (Chronic) Systolic CHF, chronic (Chronic) Obstructive sleep apnea (Chronic) compliant with CPAP Coronary artery disease (Chronic) "nonocclusive disease per cardiac cath 2009" GERD (gastroesophageal reflux disease) (Chronic) Pulmonary nodule (Chronic) "6 mm RLL; incidental finding on CT abdomen 03/07/16" Diabetic peripheral neuropathy associated with type 2 diabetes mellitus Medical History Hematuria Secondary polycythemia Obesity Congestive cardiomyopathy Severe sepsis 2019 [facility] admission sepsis 2/2 cellulitis R leg Hyponatremia Cellulitis of right leg 2019 [facility] admission sepsis 2/2 cellulitis R leg UTI (urinary tract infection) most recent early 2023>no recent issues Surgical History History of esophagogastroduodenoscopy (EGD) Hx of colonoscopy Status post inguinal hernia repair Status post appendectomy Family History Other Hypertension Stroke Social History Smoking Status: Former smoker Second Hand Exposure: No; Do You Dip or Chew Tobacco: No; Hx Alcohol Use: Yes (hx-no longer drinks) Hx Substance Use: No Preferred Language: Tongan Communication Ability: Effective Visual Impairment: Limited Hearing Ability: Use of Hearing Aid Palliative Care Nurse Required: No Beliefs That Will Affect Care: None marital status: Current Living Situation: Personal Care Facility Current Living Situation Comment: [employer] current occupational status: retired How many Children do You have: 6 Feels Safe at Home: Yes Diet: regular caffeine: No Physical Activity Frequency: Does not Exercise Seatbelt Use: always Assistive Devices: Glasses, Hearing Aid - Bilateral and Walker Review of Systems A total of 10 systems reviewed and were otherwise negative Physical Exam Vital Signs Vital Signs - 24 hr 03/05/24 22:40 03/05/24 22:50 03/05/24 22:50 Temperature 36.7 C Temperature Source Oral Pulse Rate 53 L 99 H Pulse Rate [Apical] Pulse Rhythm Regular Pulse Rhythm [Apical] Pulse Strength [Apical] Respiratory Rate 18 20 Respiratory Effort / Characteristics Respiratory Depth Respiratory Pattern Blood Pressure 127/83 Blood Pressure [Right Arm] Blood Pressure Mean 97 Blood Pressure Mean [Right Arm] Blood Pressure Position Sitting Blood Pressure Position [Right Arm] Pulse Oximetry 93 96 96 Oxygen Delivery Method Room Air Room Air Room Air Oxygen Flow Rate Sepsis Recent Fever Within 48 Hours No Sepsis New/Unexplained Change in Mental Status No Sepsis Action Taken by Nursing No Action Required 03/05/24 22:50 03/05/24 22:58 03/05/24 23:15 Temperature Temperature Source Pulse Rate 122 H Pulse Rate [Apical] 102 H Pulse Rhythm Pulse Rhythm [Apical] Regular Pulse Strength [Apical] Normal Respiratory Rate 18 Respiratory Effort / Characteristics Non-Labored Spontaneous Non-Labored Spontaneous Respiratory Depth Normal Normal Respiratory Pattern Regular Regular Blood Pressure Blood Pressure [Right Arm] 105/73 Blood Pressure Mean Blood Pressure Mean [Right Arm] 83 Blood Pressure Position Blood Pressure Position [Right Arm] Lying Pulse Oximetry 93 Oxygen Delivery Method Room Air Room Air Oxygen Flow Rate Sepsis Recent Fever Within 48 Hours Sepsis New/Unexplained Change in Mental Status Sepsis Action Taken by Nursing 03/06/24 00:45 03/06/24 01:05 03/06/24 01:19 Temperature Temperature Source Pulse Rate 134 H 128 H Pulse Rate [Apical] 118 H Pulse Rhythm Pulse Rhythm [Apical] Regular Pulse Strength [Apical] Normal Respiratory Rate 18 Respiratory Effort / Characteristics Non-Labored Spontaneous Respiratory Depth Normal Respiratory Pattern Regular Blood Pressure 151/121 H Blood Pressure [Right Arm] 125/95 Blood Pressure Mean Blood Pressure Mean [Right Arm] 105 Blood Pressure Position Blood Pressure Position [Right Arm] Lying Pulse Oximetry 93 Oxygen Delivery Method Room Air Oxygen Flow Rate Sepsis Recent Fever Within 48 Hours Sepsis New/Unexplained Change in Mental Status Sepsis Action Taken by Nursing 03/06/24 01:52 03/06/24 01:55 03/06/24 01:56 Temperature Temperature Source Pulse Rate 132 H 133 H Pulse Rate [Apical] 121 H Pulse Rhythm Pulse Rhythm [Apical] Regular Pulse Strength [Apical] Normal Respiratory Rate 18 Respiratory Effort / Characteristics Non-Labored Spontaneous Respiratory Depth Normal Respiratory Pattern Regular Blood Pressure 136/99 Blood Pressure [Right Arm] 136/99 Blood Pressure Mean Blood Pressure Mean [Right Arm] 111 Blood Pressure Position Blood Pressure Position [Right Arm] Lying Pulse Oximetry 96 Oxygen Delivery Method Nasal Cannula Oxygen Flow Rate 2 Sepsis Recent Fever Within 48 Hours Sepsis New/Unexplained Change in Mental Status Sepsis Action Taken by Nursing VITALS: Vitals are noted on the nurse's note and reviewed by myself. Vital signs tachycardic GENERAL: Pleasant male, in no acute distress, nondiaphoretic, well-developed well-nourished. SKIN: Capillary reflex less than 2 seconds. HEENT: Normocephalic. PERRLA. EOMI. Nares patent. Mucous membranes moist. Neck is supple without nuchal rigidity. HEART: Tachycardic irregularly irregular LUNGS: Clear to auscultation bilaterally without wheezes, rales or rhonchi. No retractions or accessory muscle use. ABDOMEN: Positive bowel sounds x 4. Normal tympanic percussion. Soft, nontender, without masses or organomegaly. Pimentel sign negative. No guarding or rebound tenderness. no CVA tenderness MUSCULOSKELETAL: No gross musculoskeletal defects. +2 pitting edema up to the mid tib-fib stable per family with venous stasis changes NEURO: Patient was alert and oriented to person place and time. No focal neurological deficits. Course Administered Medications Discontinued Medications Diltiazem HCl (Diltiazem Hcl 5 Mg/Ml 5 Ml Vial) 10 mg IV NOW STA Stop: 03/05/24 22:51 Last Admin: 03/05/24 23:01 Dose: 10 mg Documented By: KIMI Co-signed By: EULOGIO Diltiazem HCl (Diltiazem Hcl 5 Mg/Ml 5 Ml Vial) Confirm Administered Dose 25 mg IV .STK-MED ONE Stop: 03/05/24 22:52 Last Admin: 03/05/24 23:01 Dose: Not Given Documented By: KIMI Furosemide (Furosemide 40 Mg/4 Ml Vial) 40 mg IV ONE ONE Stop: 03/06/24 00:06 Last Admin: 03/06/24 00:38 Dose: 40 mg Documented By: EULOGIO Piperacillin Sod/Tazobactam Sod (Zosyn) 4.5 gm in 100 mls @ 200 mls/hr IV NOW ONE Stop: 03/06/24 01:46 Last Admin: 03/06/24 02:00 Dose: 200 mls/hr Documented By: KIMI Digoxin 125 mcg/ Syringe 10 mls @ 2 mls/min IV NOW STA Stop: 03/06/24 01:42 Last Admin: 03/06/24 01:56 Dose: 2 mls/min Documented By: KIMI Ioversol (Optiray 320 125ml) 118 ml IV ONCE ONE Stop: 03/06/24 00:34 Last Admin: 03/06/24 00:33 Dose: 118 ml Documented By: LIBAN Metoprolol Tartrate (Metoprolol Tartrate 1 Mg/Ml Vial) 5 mg IV NOW STA Stop: 03/06/24 01:17 Last Admin: 03/06/24 01:19 Dose: 5 mg Documented By: EULOGIO Critical Care Time Critical Care Time: Yes Total Critical Care Time: 35 I have personally spent 35 minutes of critical care time in the direct management of this patient. This includes bedside care, interpretation of diagnostic studies, and testing, discussion with consultants, patient, and family members, and other required patient management activities. This 35 minutes is in excess of all separately billable procedures. Medical Decision Making Medical Records Attestation: I reviewed the patient's medical records. Home Medications Current Medication List: was personally reviewed by me Laboratory Data Attestation: I reviewed the patient's lab results. 03/05/24 23:00 03/05/24 23:00 Lab Results 03/05/24 03/06/24 Range/Units 23:00 01:24 WBC 9.11 (4.8-10.8) K/ul RBC 4.38 L (4.70-6.10) M/uL Hgb 13.7 L (14.0-18.0) g/dl Hct 43.4 (42.0-52.0) % MCV 99.1 (80.0-100.0) fL MCH 31.3 (25.0-34.0) pg MCHC 31.6 L (32.0-36.0) g/dL RDW Std Deviation 59.8 H (36.4-46.3) fL RDW Coeff of Shilpi 16.6 H (11.5-14.5) % Plt Count 184 (130-400) K/uL MPV 11.5 (9.4-12.4) fL Immature Gran % (Auto) 0.3 % Neut % (Auto) 57.0 % Lymph % (Auto) 32.1 % [place] % (Auto) 7.7 % Eos % (Auto) 2.2 % Baso % (Auto) 0.7 % Neut # (Auto) 5.20 (1.40-6.50) K/uL Lymph # (Auto) 2.92 (1.20-3.40) K/uL [place] # (Auto) 0.70 H (0.11-0.59) K/uL Eos # (Auto) 0.20 (0.00-0.50) K/uL Baso # (Auto) 0.06 (0.00-0.20) K/uL Immature Gran # (Auto) 0.03 (0.01-0.20) K/uL Absolute Nucleated RBC 0.02 (0.00-0.12) K/uL Nucleated RBC % (auto) 0.2 % PT 27.6 H (9.0-12.0) Seconds INR 2.8 H (0.9-1.1) APTT 45 H (21-31) Seconds PTT Ratio 1.7 Sodium 134 L (136-145) mmol/L Potassium 4.6 (3.5-5.1) mmol/L Chloride 100 (98-107) mmol/L Carbon Dioxide 22 (21-32) mmol/L Anion Gap 12 H (3-11) BUN 40 H (6-23) mg/dl Creatinine 1.32 (0.6-1.4) mg/dl Est Cr Clr Drug Dosing 57.2 ml/min Est GFR ( Amer) 57.4 ml/min Est GFR (Non-Af Amer) 49.5 ml/min BUN/Creatinine Ratio 30.3 H (10-20) Glucose 253 H (70-99(Fasting)) mg/dl Calcium 9.3 (8.6-10.3) mg/dl Magnesium 2.1 (1.7-2.4) mg/dl Total Bilirubin 0.8 (0.2-1.0) mg/dl AST 18 (13-39) U/L ALT 11 (7-52) U/L Alkaline Phosphatase 68 (34-104) U/L Troponin I High Sens 11.6 (0-20) pg/ml B-Natriuretic Peptide 315 H (0-100) pg/ml Total Protein 7.0 (6.0-8.3) gm/dl Albumin 4.2 (3.4-5.0) gm/dl Globulin 2.8 (2.5-4.0) gm/dl Albumin/Globulin Ratio 1.5 (0.9-2) Urine Color Yellow Urine Appearance Clear (Clear) Urine pH 5.5 (4.5-7.5) Ur Specific [place] 1.020 (1.000-1.030) Urine Protein Negative (Negative) Urine Glucose (UA) Negative (Negative) Urine Ketones Negative (Negative) Urine Blood Negative (Negative) Urine Nitrite Negative (Negative) Urine Bilirubin Negative (Negative) Urine Urobilinogen Negative (Negative) Ur Leukocyte Esterase Negative (Negative) Digoxin 0.3 L (0.8-2.0) ng/ml Adenovirus (PCR) Not Detected (NotDetected) B. pertussis DNA (PCR) Not Detected (NotDetected) B.parapertussis DNA PCR Not Detected (NotDetected) C. pneumoniae DNA (PCR) Not Detected (NotDetected) Coronavirus OC43 (PCR) Not Detected (NotDetected) Coronavirus HKU1 (PCR) Not Detected (NotDetected) Coronavirus 229E (PCR) Not Detected (NotDetected) SARS-CoV-2 (PCR) Not Detected (NotDetected) Coronavirus NL63 (PCR) Not Detected (NotDetected) Human Metapneumovir PCR Not Detected (NotDetected) Influenza Type A (PCR) Not Detected (NotDetected) Influenza Type B (PCR) Not Detected (NotDetected) M. pneumoniae (PCR) Not Detected (NotDetected) Parainfluenza 1 (PCR) Not Detected (NotDetected) Parainfluenza 2 (PCR) Not Detected (NotDetected) Parainfluenza 3 (PCR) Not Detected (NotDetected) Parainfluenza 4 (PCR) Not Detected (NotDetected) RSV (PCR) Not Detected (NotDetected) Entero/Rhino (PCR) Not Detected (NotDetected) Imaging Data Attestation: I personally reviewed and interpreted this imaging study as follows: Radiologist's Impression: Chest CTA 03/06/24 00:06 Exam(s): CTA CHEST IV Amt: 118 cc's optiray 320 EXAM: CT Angiography Chest With Intravenous Contrast CLINICAL HISTORY: Reason for exam: PE. TECHNIQUE: Axial computed tomographic angiography images of the chest with intravenous contrast. CTDI is 71.65 mGy and DLP is 1389.55 mGy-cm. Automated exposure control was utilized for the study. A dose lowering technique was utilized adhering to the principles of ALARA. MIP reconstructed images were created and reviewed. COMPARISON: No relevant prior studies available. FINDINGS: Pulmonary arteries: Unremarkable. No acute pulmonary embolism. Aorta: Atherosclerotic changes of the aorta. No thoracic aortic aneurysm. Lungs: See below. Pleural space: Small LEFT and moderate RIGHT pleural effusions. Subsegmental atelectasis at the lung bases. No pneumothorax. Heart: Cardiomegaly. No significant pericardial effusion. No evidence of RV dysfunction. Bones/joints: Degenerative changes of the spine. No acute fracture. No dislocation. Soft tissues: Unremarkable. Lymph nodes: Unremarkable. No enlarged lymph nodes. IMPRESSION: 1. No acute pulmonary embolism. 2. Small LEFT and moderate RIGHT pleural effusions. Subsegmental atelectasis at the lung bases. Electronically signed by: Wally Smith MD 03/06/24 01:17 AM MDM Narrative Prior records/ancillary studies reviewed. Triage Nursing notes reviewed. Additional history obtained from the family. The patient's history was concerning for respiratory difficulties. Differential diagnosis: Etiologies such as infections, reactive airway disease, pneumonia, pneumothorax, COPD, CHF, cardiac ischemia, pulmonary embolism, musculoskeletal, gastrointestinal, as well as others were entertained. Physical examination: As above. ER treatment provided: An order was placed for continuous cardiac monitoring. The monitor shows a rate of 60-180 with a A-fib rhythm per my interpretation. Cardizem was ordered Lopressor was given Lasix was given Zosyn was given for possible pneumonia and blood cultures were drawn Digoxin was given On reassessment the patient felt better. Diagnostic interpretation by me: The electrocardiogram was ordered for SOB. ECG: Irregular irregular no acute ST-T wave changes, rate of 145. Impression A- fib with RVR intra-ventricular conduction block independently interpreted by myself The labs Independently Interpreted by myself revealed subtherapeutic digoxin level. Negative troponin No worrisome leukocytosis, blood cultures pending Imaging studies: Chest x-ray with bilateral small pleural effusions without pneumothorax or free air per my independent interpretation CTA as above Consultation: A consultation was placed with the hospitalist. The case was discussed and diagnostics were reviewed. The patient was evaluated in the ER for further treatment. This appears to be consistent with A-fib RVR with pleural effusions with possible secondary pneumonia. Patient has been coughing more that has been productive. I did opt to place him on antibiotics. Medicine is consulted case discussed. He will be admitted to the medical service. Medicine is requesting Lopressor for the A-fib. By the evaluation outlined above emergent etiologies such as cardiac ischemia, pulmonary embolism, reactive airway disease, pneumothorax, musculoskeletal, serious bacterial infections, as well as others were deemed relatively unlikely. The pt informed about the findings as listed above. All questions were answered and pleased with the treatment. The chart was completed utilizing [employer] Speech voice recognition software. Grammatical errors, random word insertions, pronoun errors, and incomplete sentences are an occassional consequence of this system due to software limitations, ambient noise, and hardware issues. Any formal questions or concerns about the content, text, or information contained within the body of this dictation should be directly addressed to the physician vet assistant for clarification. Impression & Plan Atrial fibrillation with RVR, Pleural effusion on right, Pleural effusion on left Discharge Plan Visit Data Chief Complaint: Shortness of Breath/Dyspnea Stated Complaint: SOB, COUGHING UP FLEM/CONGESTION ED Provider: Angelica Davey ED Midlevel Provider: Jessica Rojas Discharge Problem: Atrial fibrillation with RVR, Pleural effusion on right, Pleural effusion on left Patient Disposition: Admitted As Inpatient Condition: Fair Forms Stand Alone Forms: My [facility] Prescriptions Prescriptions: No Action furosemide [Lasix] 80 mg tablet See Rx Instructions .ROUTE .COMPLEX Rx Instructions: TAKES 80 MG QAM, THEN 40 MG QPM. pravastatin 40 mg tablet 40 mg PO HS metoprolol succinate 50 mg tablet extended release 24 hr See Rx Instructions .ROUTE .COMPLEX Patient Comments: 150 mg morning and 100 in the evening Rx Instructions: TAKES 150 MG QAM, THEN 100 MG QPM digoxin 250 mcg tablet 125 mcg PO 3XWK Rx Instructions: TAKE THIS MED EVERY MON/WED/FRI levothyroxine 88 mcg tablet 88 mcg PO QAM potassium chloride 20 mEq tablet,ER particles/crystals 20 meq PO QAM warfarin 5 mg tablet See Rx Instructions .ROUTE .COMPLEX Rx Instructions: TAKES 2.5 MG ON SUN, MON, WED, & FRI, THEN 5 MG ON , , & SAT. allopurinol 300 mg tablet 300 mg PO QAM colchicine 0.6 mg tablet 0.6 mg PO UD PRN (Reason: gout flare) Rx Instructions: only used when having a bowel prep alfuzosin 10 mg tablet extended release 24 hr 10 mg PO QPM Rx Instructions: TAKE THIS MEDICATION ONCE DAILY AFTER A MEAL multivitamin Tablet 1 tab PO QAM tramadol 50 mg Tablet 50 mg PO BID fluticasone propionate [Flonase Allergy Relief] 50 mcg/actuation [place],Suspension 2 spray INTRANASAL BID PRN (Reason: Nasal Congestion) cholecalciferol (vitamin D3) [Vitamin D3] 1,000 unit Tablet 2,000 units PO QAM spironolactone 25 mg tablet See Rx Instructions .ROUTE .COMPLEX Patient Comments: morning 25 mg and evening 12.5 mg. Rx Instructions: TAKES 25 MG QAM, THEN 12.5 MG QPM. metformin 500 mg tablet extended release 24 hr See Rx Instructions .ROUTE .COMPLEX Patient Comments: 500 in the morning and 1000 in the evening Rx Instructions: TAKES 500 MG QAM, THEN 1,000 MG QPM. triamcinolone acetonide 0.1 % Cream 1 applic TOPICAL BID PRN (Reason: Skin Irritation) Rx Instructions: APPLY TO RASH ON CHIN AND ARMS NEEDED. mupirocin 2 % ointment 1 applic TOPICAL BID PRN (Reason: Skin Irritation) Rx Instructions: APPLY TO GROIN AND FOLDS NEEDED. pantoprazole 40 mg tablet,delayed release (DR/EC) 40 mg PO QAM finasteride 5 mg tablet 5 mg PO QAM ondansetron HCl 4 mg Tablet 4 mg PO Q8H PRN (Reason: Nausea) calcium carbonate [Calcium Antacid] 400 mg calcium (1,000 mg) Tablet,Chewable 400 mg PO BID PRN (Reason: gerd) famotidine 20 mg Tablet 20 mg PO QAM mirtazapine 15 mg Tablet 15 mg PO HS acetaminophen 500 mg Capsule 1,000 mg PO Q6H PRN (Reason: Pain) Saline Mist 0.65 % Aerosol,[place] 1 spray INTRANASAL BID PRN (Reason: Dry Nasal Passages) lactulose 10 gram/15 mL Solution 10 g PO BID PRN (Reason: Constipation) naloxone 4 mg/actuation [place],Non-Aerosol 4 mg INTRANASAL UD PRN (Reason: overdose) aspirin 81 mg Tablet,Delayed Release (Dr/Ec) 81 mg PO QAM senna 8.6 mg capsule 8.6 mg PO BID PRN (Reason: constipation) Qty: 30 0RF polyethylene glycol 3350 [Miralax] 17 gram/dose Powder 17 g PO DAILY PRN (Reason: Constipation) albuterol sulfate 90 mcg/actuation Hfa Aerosol Inhaler 2 puff INHALATION QID PRN (Reason: Shortness Of Breath Or Wheezing) Referrals Referrals: [place] [facility] [Primary Care Provider] -
[2024-03-05 23:39] LABS: Albumin Globulin Ratio 1.5 (0.9-2); Albumin Level 4.2 gm/dl (3.4-5.0); BUN Creatinine Ratio 30.3 (10-20); Bilirubin,Total 0.8 mg/dl (0.2-1.0); Calcium 9.3 mg/dl (8.6-10.3); Creatinine Clr Calc Pharmacy 57.2 ml/min; Est GFR (African American) 57.4 ml/min; Est GFR (Non-African American) 49.5 ml/min; Globulin 2.8 gm/dl (2.5-4.0); Magnesium 2.1 mg/dl (1.7-2.4); Potassium 4.6 mmol/L (3.5-5.1)
[2024-03-05 23:44] LABS: Basophils # (auto) 0.06 K/uL (0.00-0.20); Basophils % (auto) 0.7 %; Eosinophils % (auto) 2.2 %; Hematocrit (blood only) 43.4 % (42.0-52.0); Hemoglobin 13.7 g/dl (14.0-18.0); Immature Granulocytes # (auto) 0.03 K/uL (0.01-0.20); Immature Granulocytes % (auto) 0.3 %; Lymphocytes # (auto) 2.92 K/uL (1.20-3.40); Lymphocytes % (auto) 32.1 %; Mean Corpuscular Hemoglobin 31.3 pg (25.0-34.0); Mean Corpuscular Hgb Conc 31.6 g/dL (32.0-36.0); Mean Corpuscular Volume 99.1 fL (80.0-100.0); Mean Platelet Volume 11.5 fL (9.4-12.4); Monocytes % (auto) 7.7 %; Nucleated RBC # (auto) 0.02 K/uL (0.00-0.12); Nucleated RBC % (auto) 0.2 %; Platelet Count 184 K/uL (130-400); RDW Coefficient of Variation 16.6 % (11.5-14.5); RDW Standard Deviation 59.8 fL (36.4-46.3); Red Blood Count 4.38 M/uL (4.70-6.10); White Blood Count 9.11 K/ul (4.8-10.8)
[2024-03-05 23:45] LABS: Troponin I High Sensitivity 11.6 pg/ml (0-20)
[2024-03-05 23:57] LABS: INR 2.8 (0.9-1.1); Partial Thromboplastin Ratio 1.7; Partial Thromboplastin Time 45 Seconds (21-31); Prothrombin Time 27.6 Seconds (9.0-12.0)
[2024-03-06 00:20] LABS: Adenovirus PCR Not Detected (NotDetected); Bordetella parapertussis PCR Not Detected (NotDetected); Bordetella pertussis PCR Not Detected (NotDetected); Chlamydia pneumoniae PCR Not Detected (NotDetected); Coronavirus 229E PCR Not Detected (NotDetected); Coronavirus CoV-2 (COVID19)PCR Not Detected (NotDetected); Coronavirus HKU1 PCR Not Detected (NotDetected); Coronavirus NL63 PCR Not Detected (NotDetected); Coronavirus OC43PCR Not Detected (NotDetected); Human Metapneumovirus PCR Not Detected (NotDetected); Influenza A PCR Not Detected (NotDetected); Influenza B PCR Not Detected (NotDetected); Mycoplasma pneumoniae PCR Not Detected (NotDetected); Parainfluenza Virus 1 PCR Not Detected (NotDetected); Parainfluenza Virus 2 PCR Not Detected (NotDetected); Parainfluenza Virus 3 PCR Not Detected (NotDetected); Parainfluenza Virus 4 PCR Not Detected (NotDetected); Respiratory Syncytial VirusPCR Not Detected (NotDetected); Rhinovirus/Enterovirus PCR Not Detected (NotDetected)
[2024-03-06] MEDS: OPTIRAY 320 125ml IV ONE (00:33)
[2024-03-06] MEDS: FUROSEMIDE 40 MG/4 ML VIAL IV ONE (00:38)
--- NOTE | 2024-03-06 01:18 | CT Scan Report ---
Exam(s): CTA CHEST IV Amt: 118 cc's optiray 320 EXAM: CT Angiography Chest With Intravenous Contrast CLINICAL HISTORY: Reason for exam: PE. TECHNIQUE: Axial computed tomographic angiography images of the chest with intravenous contrast. CTDI is 71.65 mGy and DLP is 1389.55 mGy-cm. Automated exposure control was utilized for the study. A dose lowering technique was utilized adhering to the principles of ALARA. MIP reconstructed images were created and reviewed. COMPARISON: No relevant prior studies available. FINDINGS: Pulmonary arteries: Unremarkable. No acute pulmonary embolism. Aorta: Atherosclerotic changes of the aorta. No thoracic aortic aneurysm. Lungs: See below. Pleural space: Small LEFT and moderate RIGHT pleural effusions. Subsegmental atelectasis at the lung bases. No pneumothorax. Heart: Cardiomegaly. No significant pericardial effusion. No evidence of RV dysfunction. Bones/joints: Degenerative changes of the spine. No acute fracture. No dislocation. Soft tissues: Unremarkable. Lymph nodes: Unremarkable. No enlarged lymph nodes. IMPRESSION: 1. No acute pulmonary embolism. 2. Small LEFT and moderate RIGHT pleural effusions. Subsegmental atelectasis at the lung bases. Electronically signed by: Wally Smith MD 03/06/24 01:17 AM
[2024-03-06] MEDS: METOPROLOL TARTRATE 1 MG/ML VIAL IV STA (01:19)
--- NOTE | 2024-03-06 01:33 | Emergency Department Note ---
ED Visit Note I was consulted by the Advanced Practice Provider. I personally approved the management plan and take responsibility for the patient management. I performed a substantive portion of the visit. This includes the aspects of: -History/Physical/Personally seeing the patient -MDM -I independently interpreted the following studies:Studies and results .
[2024-03-06] MEDS: DIGOXIN 125 MCG in SYRINGE 9.5 ML IV STA (01:56)
[2024-03-06] MEDS: PIPERACILLIN/TAZOBACTAM 4.5 GM/100 ML BAG IV ONE (02:00)
[2024-03-06 02:08] LABS: Appearance Urine Clear (Clear); Bilirubin Urine Negative (Negative); Blood Urine Negative (Negative); Color Urine Yellow; Glucose Urine UA Negative (Negative); Ketones Urine Negative (Negative); Leukocyte Esterase Urine Negative (Negative); Nitrite Urine Negative (Negative); Protein Urine Negative (Negative); Urobilinogen Urine Negative (Negative); pH Urine 5.5 (4.5-7.5)
[2024-03-06] MEDS ORDERED: TRIAMCINOLONE ACET 0.1% CR 15 GM TUBE TOP PRN (03:23)
[2024-03-06] MEDS ORDERED: FLUTICASONE PROPIONATE NA SPR 16 GM BTL PRN (03:23)
[2024-03-06] MEDS ORDERED: SODIUM CHLORIDE 0.65% NA SOLN 45 ML (OCEAN) PRN (03:23)
[2024-03-06] MEDS ORDERED: NITROGLYCERIN SL 0.4 MG/TAB TAB SL PRN (03:23)
[2024-03-06] MEDS ORDERED: ALBUTEROL HFA 8 GM INHALER INH PRN (03:23)
[2024-03-06] MEDS ORDERED: LEVALBUTEROL HCL 0.63 MG/3 ML NEB NEB PRN (03:23)
[2024-03-06] MEDS ORDERED: CALCIUM CARBONATE 500 MG CHEWABLE TAB PO PRN (03:30)
[2024-03-06] MEDS ORDERED: LACTULOSE SYRUP 10 GM/15 ML BTL 960 ML PO PRN (03:32)
[2024-03-06] MEDS ORDERED: CARBOHYDRATES FOR HYPOGLYCEMIA PO PRN (05:16)
[2024-03-06] MEDS ORDERED: DEXTROSE 50% 50 ML SYRINGE IV PRN (05:16)
[2024-03-06] MEDS ORDERED: GLUCOSE 10 TAB/TUBE PO PRN (05:16)
[2024-03-06] MEDS ORDERED: GLUCAGON FOR INJ 1 MG VIAL SQ PRN (05:16)
[2024-03-06] MEDS ORDERED: GLUCOSE 40% GEL 15 GM TUBE PO PRN (05:16)
--- NOTE | 2024-03-06 05:38 | History & Physical Report ---
Date of Service March 06, 2024 Assessment & Plan (1) Rapid atrial fibrillation: Plan: 83-year-old male with past medical history significant for type 2 diabetes, hyperlipidemia, hypothyroidism, obstructive sleep apnea, permanent atrial fibrillation, hypertension, CAD, gout arthropathy, venous stasis dermatitis, secondary polycythemia, obesity, nonischemic cardiomyopathy with initial EF of 20% echo done in October 2023 showed EF of 45 to 49%, BPH s/p TURP presents with shortness of breath and found to be in rapid A-fib. Patient states in the last couple of days having short of breath. Has some cough. Denies any chest pain. No nausea. No abdominal pain. No headaches. No fevers. Micturating okay. With stool softeners bowels are moving okay. Has some swelling in the legs but son states they are better than before. States few days ago he had a pain in right leg on and off. Currently some pain in the left leg on and off. Received a dose of IV Lasix in the ER and a dose of iv Cardizem, IV Lopressor and dose of IV digoxin. When the heart rate is improved he is feeling better. rapid atrial fibrillation received a dose of IV Cardizem, IV Lopressor and IV digoxin currently improved continue home p.o. metoprolol succinate and p.o. digoxin and warfarin INR 2.8 we will follow PT/INR IV Lopressor as needed history of cardioversion in the past will follow serial cardiac enzymes and echo telemetry consult cardiology in a.m. for further recommendations shortness of breath acute on chronic systolic CHF procalcitonin negative CTA chest shows bilateral pleural effusions, small left and moderate right IV Lasix 40 mg twice daily with home potassium supplement continue home spironolactone Daily weights. I's and O's telemetry cardiology consulted type 2 diabetes hold home p.o. medications sliding scale follow blood sugars follow HbA1c levels obstructive sleep apnea patient states not using CPAP for last 6 months as he is sleeping on the chair CPAP nightly counseling for compliance hypothyroidism on Synthyroid follow TSH hypertension on metoprolol succinate and diuretics we will monitor hyperlipidemia on statin GERD on Protonix and famotidine constipation home stool softeners BPH s/p TURP on finasteride gout on allopurinol mild CAD by catheterization in 2009 on aspirin, statin and beta-naomy DVT prophylaxis on warfarin and INR therapeutic disposition telemetry full code Addendum: To check for sacral ulcers History of Present Illness Chief Complaint: shortness of breath and rapid A-fib Primary Care Provider: [facility] 83-year-old male with past medical history significant for type 2 diabetes, hyperlipidemia, hypothyroidism, obstructive sleep apnea, permanent atrial fibrillation, hypertension, CAD, gout arthropathy, venous stasis dermatitis, secondary polycythemia, obesity, nonischemic cardiomyopathy with initial EF of 20% echo done in October 2023 showed EF of 45 to 49%, BPH s/p TURP presents with shortness of breath and found to be in rapid A-fib. Patient states in the last couple of days having short of breath. Has some cough. Denies any chest pain. No nausea. No abdominal pain. No headaches. No fevers. Micturating okay. With stool softeners bowels are moving okay. Has some swelling in the legs but son states they are better than before. States few days ago he had a pain in right leg on and off. Currently some pain in the left leg on and off. Received a dose of IV Lasix in the ER and a dose of iv Cardizem, IV Lopressor and dose of IV digoxin. When the heart rate is improved he is feeling better. Past medical history. As mentioned above past surgical history. Left heart catheterization. Colonoscopy biopsy. Colonoscopy. EGD. Appendectomy. Tonsillectomy. Bilateral cataracts. Inguinal hernia repair. S/p TURP on 12/03/2023 social history. . Quit smoking 1980s. Smoked 1 pack a day for 10 years. No alcohol use. No drug use. Family history. Mother had cirrhosis. Father had stroke. Brother has hy pertension. Allergies Allergy/AdvReac Type Severity Reaction Status Date / Time adhesive AdvReac Intermediate sensitive Verified 03/06/24 00:25 skin to strong adhesives Home Medications Medication Instructions Recorded Confirmed Type alfuzosin 10 mg tablet,extended 10 mg PO QPM 09/29/18 03/06/24 History release 24 hr allopurinol 300 mg tablet 300 mg PO QAM 09/29/18 03/06/24 History cholecalciferol (vitamin D3) 25 2,000 units PO QAM 09/29/18 03/06/24 History mcg (1,000 unit) tablet (Vitamin D3) colchicine 0.6 mg tablet 0.6 mg PO UD PRN gout flare 09/29/18 03/06/24 History digoxin 250 mcg (0.25 mg) tablet 125 mcg PO 3XWK 09/29/18 03/06/24 History fluticasone propionate 50 2 spray intranasal BID PRN Nasal 09/29/18 03/06/24 History mcg/actuation nasal Congestion spray,suspension (Flonase Allergy Relief) levothyroxine 88 mcg tablet 88 mcg PO QAM 09/29/18 03/06/24 History metoprolol succinate 50 mg See Rx Instructions .Route .COMPLEX 09/29/18 03/06/24 History tablet,extended release 24 hr multivitamin 1 tab PO QAM 09/29/18 03/06/24 History potassium chloride 20 mEq 20 meq PO QAM 09/29/18 03/06/24 History tablet,extended release(part/cryst) pravastatin 40 mg tablet 40 mg PO HS 09/29/18 03/06/24 History tramadol 50 mg tablet 50 mg PO BID 09/29/18 03/06/24 History warfarin 5 mg tablet See Rx Instructions .Route .COMPLEX 09/29/18 03/06/24 History triamcinolone acetonide 0.1 % 1 applic topical BID PRN Skin 06/18/21 03/06/24 History topical cream Irritation mupirocin 2 % topical ointment 1 applic topical BID PRN Skin 12/06/21 03/06/24 History Irritation pantoprazole 40 mg tablet,delayed 40 mg PO QAM 08/15/23 03/06/24 History release acetaminophen 500 mg capsule 1,000 mg PO Q6H PRN Pain 10/20/23 03/06/24 History calcium carbonate (Calcium Antacid) 400 mg PO BID PRN gerd 10/20/23 03/06/24 History famotidine 20 mg tablet 20 mg PO QAM 10/20/23 03/06/24 History finasteride 5 mg tablet 5 mg PO QAM 10/20/23 03/06/24 History lactulose 10 gram/15 mL oral 10 g PO BID PRN Constipation 10/20/23 03/06/24 History solution mirtazapine 15 mg tablet 15 mg PO HS 10/20/23 03/06/24 History naloxone 4 mg/actuation nasal spray 4 mg intranasal UD PRN overdose 10/20/23 03/06/24 History ondansetron HCl 4 mg tablet 4 mg PO Q8H PRN Nausea 10/20/23 03/06/24 History sodium chloride 0.65 % nasal spray 1 spray intranasal BID PRN Dry 10/20/23 03/06/24 History aerosol (Saline Mist) Nasal Passages aspirin 81 mg tablet,delayed 81 mg PO QAM 10/21/23 03/06/24 History release sennosides 8.6 mg capsule (senna) 8.6 mg PO BID PRN constipation #30 10/21/23 03/06/24 Rx caps polyethylene glycol 3350 17 17 g PO DAILY PRN Constipation 11/20/23 03/06/24 History gram/dose oral powder (Miralax) metformin 500 mg tablet,extended See Rx Instructions .Route .COMPLEX 01/01/24 03/06/24 History release 24 hr spironolactone 25 mg tablet See Rx Instructions .Route .COMPLEX 01/01/24 03/06/24 History furosemide 80 mg tablet (Lasix) See Rx Instructions .Route .COMPLEX 01/21/24 03/06/24 History albuterol sulfate 90 mcg/actuation 2 puff inhalation QID PRN 03/06/24 03/06/24 History aerosol inhaler Shortness Of Breath Or Wheezing Past Med/Surg History Problem List (Updated 03/06/24 @ 05:38 by Celestino Birmingham MD) Rapid atrial fibrillation Pleural effusion on left (Acute) Pleural effusion on right (Acute) Traumatic open wound of left lower leg (Acute) Chronic venous insufficiency (Chronic) Traumatic open wound of right lower leg (Acute) Lesion of bladder Blister of finger Gross hematuria Traumatic open wound of lower leg Stage III pressure ulcer of left elbow (Acute) Pressure ulcer of right buttock, stage 3 (Acute) Encounter for pre-operative examination Healing pressure ulcer stage III Hyponatremia (Acute) Acute UTI (urinary tract infection) (Acute) Adverse drug reaction (Acute) MASON (acute kidney injury) (Acute) Generalized weakness (Acute) Encephalopathy Acute hyponatremia (Acute) Urinary tract infection (Acute) Patella, chondromalacia Knee pain, chronic Encephalopathy LBBB (left bundle branch block) (Acute) Altered mental status (Acute) Atrial fibrillation with RVR (Acute) History of diabetic ulcer of foot BPH (benign prostatic hyperplasia) (Chronic) Gout (Chronic) HLD (hyperlipidemia) (Chronic) HTN (hypertension) (Chronic) Weakness (Acute) recent generalized muscle weakness; notes poor oral intake since 06/2023 Atrial fibrillation (Chronic) follows with [facility]; on coumadin Dyslipidemia (Chronic) Hypothyroidism (Chronic) History of adenomatous polyp of colon (Chronic) Diabetes mellitus, type 2 (Chronic) NIDDM History of basal cell carcinoma (Chronic) Systolic CHF, chronic (Chronic) Obstructive sleep apnea (Chronic) compliant with CPAP Coronary artery disease (Chronic) "nonocclusive disease per cardiac cath 2009" GERD (gastroesophageal reflux disease) (Chronic) Pulmonary nodule (Chronic) "6 mm RLL; incidental finding on CT abdomen 03/07/16" Diabetic peripheral neuropathy associated with type 2 diabetes mellitus Medical History Hematuria Secondary polycythemia Obesity Congestive cardiomyopathy Severe sepsis 2019 [facility] admission sepsis 2/2 cellulitis R leg Hyponatremia Cellulitis of right leg 2019 [facility] admission sepsis 2/2 cellulitis R leg UTI (urinary tract infection) most recent early 2023>no recent issues Surgical History History of esophagogastroduodenoscopy (EGD) Hx of colonoscopy Status post inguinal hernia repair Status post appendectomy Family History Other Hypertension Stroke Social History Smoking Status: Never smoker Second Hand Exposure: No; Do You Dip or Chew Tobacco: No; Tobacco Cessation Education Requested by Patient: No Hx Alcohol Use: No Hx Substance Use: No Preferred Language: Kosovan Communication Ability: Effective Visual Impairment: Limited Hearing Ability: Use of Hearing Aid Emergency Medicine Physician Assistant Required: No Beliefs That Will Affect Care: None marital status: Current Living Situation: Spouse and Family Current Living Situation Comment: [place] [facility] [place] current occupational status: retired How many Children do You have: 6 Other Information That Helps Us Care for You: No Feels Safe at Home: Yes Safety Concerns: Feels Safe At This Time Diet: regular caffeine: No Physical Activity Frequency: Does not Exercise Seatbelt Use: always Assistive Devices: CPAP, Glasses, Hearing Aid - Bilateral and Walker Review of Systems Review of Systems: All systems reviewed & are unremarkable except as noted in HPI & below Physical Exam Physical Exam: General- Not in acute distress Head- atraumatic Eyes- PERRL. ENT- oropharynx clear Neck- supple, no JVD. Lungs- clear to auscultation b/l wheezing heard, bibasilar crackles Heart- irregular rhythm; tachycardia no murmur, no gallop Abdomen- normal bowel sounds, soft, nontender, no distension. Extremities- b/l lower extremity edema present with chronic skin changes. No erythema seen Neuro- alert, oriented PERRL, no facial palsy; no dysarthria; moves extremities Results & Data Results & Data Vital Signs (Past 12 Hours) Vital Signs Temp Pulse Pulse Resp BP BP Pulse Ox 03/06/24 01:56 133 H 03/06/24 01:55 121 H 18 136/99 96 03/06/24 01:52 132 H 136/99 03/06/24 01:19 128 H 151/121 H 03/06/24 01:05 134 H 03/06/24 00:45 118 H 18 125/95 93 03/05/24 23:15 102 H 18 105/73 93 03/05/24 22:58 122 H 03/05/24 22:50 03/05/24 22:50 99 H 20 96 03/05/24 22:50 96 03/05/24 22:40 36.7 C 53 L 18 127/83 93 O2 Del Method O2 Flow Rate 03/06/24 01:56 03/06/24 01:55 Nasal Cannula 2 03/06/24 01:52 03/06/24 01:19 03/06/24 01:05 03/06/24 00:45 Room Air 03/05/24 23:15 Room Air 03/05/24 22:58 03/05/24 22:50 Room Air 03/05/24 22:50 Room Air 03/05/24 22:50 Room Air 03/05/24 22:40 Room Air Diagnostic Findings Laboratory Results WBC 9.11 K/ul (4.8-10.8) 03/05/24 23:00 RBC 4.38 M/uL (4.70-6.10) L 03/05/24 23:00 Hgb 13.7 g/dl (14.0-18.0) L 03/05/24 23:00 Hct 43.4 % (42.0-52.0) 03/05/24 23:00 MCV 99.1 fL (80.0-100.0) 03/05/24 23:00 MCH 31.3 pg (25.0-34.0) 03/05/24 23:00 MCHC 31.6 g/dL (32.0-36.0) L 03/05/24 23:00 RDW Std Deviation 59.8 fL (36.4-46.3) H 03/05/24 23:00 RDW Coeff of Shilpi 16.6 % (11.5-14.5) H 03/05/24 23:00 Plt Count 184 K/uL (130-400) 03/05/24 23:00 MPV 11.5 fL (9.4-12.4) 03/05/24 23:00 Immature Gran % (Auto) 0.3 % 03/05/24 23:00 Neut % (Auto) 57.0 % 03/05/24 23:00 Lymph % (Auto) 32.1 % 03/05/24 23:00 [place] % (Auto) 7.7 % 03/05/24 23:00 Eos % (Auto) 2.2 % 03/05/24 23:00 Baso % (Auto) 0.7 % 03/05/24 23:00 Neut # (Auto) 5.20 K/uL (1.40-6.50) 03/05/24 23:00 Lymph # (Auto) 2.92 K/uL (1.20-3.40) 03/05/24 23:00 [place] # (Auto) 0.70 K/uL (0.11-0.59) H 03/05/24 23:00 Eos # (Auto) 0.20 K/uL (0.00-0.50) 03/05/24 23:00 Baso # (Auto) 0.06 K/uL (0.00-0.20) 03/05/24 23:00 Immature Gran # (Auto) 0.03 K/uL (0.01-0.20) 03/05/24 23:00 Absolute Nucleated RBC 0.02 K/uL (0.00-0.12) 03/05/24 23:00 Nucleated RBC % (auto) 0.2 % 03/05/24 23:00 PT 27.6 Seconds (9.0-12.0) H 03/05/24 23:00 INR 2.8 (0.9-1.1) H 03/05/24 23:00 APTT 45 Seconds (21-31) H 03/05/24 23:00 PTT Ratio 1.7 03/05/24 23:00 Sodium 134 mmol/L (136-145) L 03/05/24 23:00 Potassium 4.6 mmol/L (3.5-5.1) 03/05/24 23:00 Chloride 100 mmol/L (98-107) 03/05/24 23:00 Carbon Dioxide 22 mmol/L (21-32) 03/05/24 23:00 Anion Gap 12 (3-11) H 03/05/24 23:00 BUN 40 mg/dl (6-23) H 03/05/24 23:00 Creatinine 1.32 mg/dl (0.6-1.4) 03/05/24 23:00 Est Cr Clr Drug Dosing 57.2 ml/min 03/05/24 23:00 Est GFR ( Amer) 57.4 ml/min 03/05/24 23:00 Est GFR (Non-Af Amer) 49.5 ml/min 03/05/24 23:00 BUN/Creatinine Ratio 30.3 (10-20) H 03/05/24 23:00 Glucose 253 mg/dl (70-99(Fasting)) H 03/05/24 23:00 Calcium 9.3 mg/dl (8.6-10.3) 03/05/24 23:00 Magnesium 2.1 mg/dl (1.7-2.4) 03/05/24 23:00 Total Bilirubin 0.8 mg/dl (0.2-1.0) 03/05/24 23:00 AST 18 U/L (13-39) 03/05/24 23:00 ALT 11 U/L (7-52) 03/05/24 23:00 Alkaline Phosphatase 68 U/L (34-104) 03/05/24 23:00 Troponin I High Sens 11.6 pg/ml (0-20) 03/05/24 23:00 B-Natriuretic Peptide 315 pg/ml (0-100) H 03/05/24 23:00 Total Protein 7.0 gm/dl (6.0-8.3) 03/05/24 23:00 Albumin 4.2 gm/dl (3.4-5.0) 03/05/24 23:00 Globulin 2.8 gm/dl (2.5-4.0) 03/05/24 23:00 Albumin/Globulin Ratio 1.5 (0.9-2) 03/05/24 23:00 Procalcitonin 0.15 ng/ml (0-0.5) 03/06/24 01:28 Urine Color Yellow 03/06/24 01:24 Urine Appearance Clear (Clear) 03/06/24 01:24 Urine pH 5.5 (4.5-7.5) 03/06/24 01:24 Ur Specific [place] 1.020 (1.000-1.030) 03/06/24 01:24 Urine Protein Negative (Negative) 03/06/24 01:24 Urine Glucose (UA) Negative (Negative) 03/06/24:24 Urine Ketones Negative (Negative) 03/06/24 01:24 Urine Blood Negative (Negative) 03/06/24 01:24 Urine Nitrite Negative (Negative) 03/06/24 01:24 Urine Bilirubin Negative (Negative) 03/06/24 01:24 Urine Urobilinogen Negative (Negative) 03/06/24 01:24 Ur Leukocyte Esterase Negative (Negative) 03/06/24 01:24 Digoxin 0.3 ng/ml (0.8-2.0) L 03/05/24 23:00 Adenovirus (PCR) Not Detected (NotDetected) 03/05/24 23:00 B. pertussis DNA (PCR) Not Detected (NotDetected) 03/05/24 23:00 B.parapertussis DNA PCR Not Detected (NotDetected) 03/05/24 23:00 C. pneumoniae DNA (PCR) Not Detected (NotDetected) 03/05/24 23:00 Coronavirus OC43 (PCR) Not Detected (NotDetected) 03/05/24 23:00 Coronavirus HKU1 (PCR) Not Detected (NotDetected) 03/05/24 23:00 Coronavirus 229E (PCR) Not Detected (NotDetected) 03/05/24 23:00 SARS-CoV-2 (PCR) Not Detected (NotDetected) 03/05/24 23:00 Coronavirus NL63 (PCR) Not Detected (NotDetected) 03/05/24 23:00 Human Metapneumovir PCR Not Detected (NotDetected) 03/05/24 23:00 Influenza Type A (PCR) Not Detected (NotDetected) 03/05/24 23:00 Influenza Type B (PCR) Not Detected (NotDetected) 03/05/24 23:00 M. pneumoniae (PCR) Not Detected (NotDetected) 03/05/24 23:00 Parainfluenza 1 (PCR) Not Detected (NotDetected) 03/05/24 23:00 Parainfluenza 2 (PCR) Not Detected (NotDetected) 03/05/24 23:00 Parainfluenza 3 (PCR) Not Detected (NotDetected) 03/05/24 23:00 Parainfluenza 4 (PCR) Not Detected (NotDetected) 03/05/24 23:00 RSV (PCR) Not Detected (NotDetected) 03/05/24 23:00 Entero/Rhino (PCR) Not Detected (NotDetected) 03/05/24 23:00 Impressions Chest CTA 03/06/24 00:06 Exam(s): CTA CHEST IV Amt: 118 cc's optiray 320 EXAM: CT Angiography Chest With Intravenous Contrast CLINICAL HISTORY: Reason for exam: PE. TECHNIQUE: Axial computed tomographic angiography images of the chest with intravenous contrast. CTDI is 71.65 mGy and DLP is 1389.55 mGy-cm. Automated exposure control was utilized for the study. A dose lowering technique was utilized adhering to the principles of ALARA. MIP reconstructed images were created and reviewed. COMPARISON: No relevant prior studies available. FINDINGS: Pulmonary arteries: Unremarkable. No acute pulmonary embolism. Aorta: Atherosclerotic changes of the aorta. No thoracic aortic aneurysm. Lungs: See below. Pleural space: Small LEFT and moderate RIGHT pleural effusions. Subsegmental atelectasis at the lung bases. No pneumothorax. Heart: Cardiomegaly. No significant pericardial effusion. No evidence of RV dysfunction. Bones/joints: Degenerative changes of the spine. No acute fracture. No dislocation. Soft tissues: Unremarkable. Lymph nodes: Unremarkable. No enlarged lymph nodes. IMPRESSION: 1. No acute pulmonary embolism. 2. Small LEFT and moderate RIGHT pleural effusions. Subsegmental atelectasis at the lung bases. Electronically signed by: Wally Smith MD 03/06/24 01:17 AM ECG Additional Comments: ECG. Atrial fibrillation with rapid ventricular response rate of 145. T wave inversions in inferior leads. QTc 487 Code Status & VTE Plan VTE Prophylaxis Plan VTE Prophylaxis will be ordered: Yes
[2024-03-06] MEDS: LEVOTHYROXINE SODIUM 88 MCG TABLET PO SCH (06:31)
[2024-03-06 06:36] LABS: Basophils # (auto) 0.03 K/uL (0.00-0.20); Basophils % (auto) 0.4 %; Eosinophils # (auto) 0.09 K/uL (0.00-0.50); Eosinophils % (auto) 1.1 %; Hematocrit (blood only) 40.8 % (42.0-52.0); Hemoglobin 12.8 g/dl (14.0-18.0); Immature Granulocytes # (auto) 0.03 K/uL (0.01-0.20); Immature Granulocytes % (auto) 0.4 %; Lymphocytes # (auto) 1.96 K/uL (1.20-3.40); Lymphocytes % (auto) 23.4 %; Mean Corpuscular Hemoglobin 30.9 pg (25.0-34.0); Mean Corpuscular Hgb Conc 31.4 g/dL (32.0-36.0); Mean Corpuscular Volume 98.6 fL (80.0-100.0); Mean Platelet Volume 11.3 fL (9.4-12.4); Monocytes # (auto) 0.61 K/uL (0.11-0.59); Monocytes % (auto) 7.3 %; Neutrophils # (auto) 5.67 K/uL (1.40-6.50); Neutrophils % (auto) 67.4 %; Platelet Count 149 K/uL (130-400); RDW Coefficient of Variation 16.5 % (11.5-14.5); RDW Standard Deviation 59.7 fL (36.4-46.3); Red Blood Count 4.14 M/uL (4.70-6.10); White Blood Count 8.39 K/ul (4.8-10.8)
[2024-03-06 06:42] LABS: BUN Creatinine Ratio 32.2 (10-20); Calcium 9.2 mg/dl (8.6-10.3); Creatinine Clr Calc Pharmacy 65.6 ml/min; Est GFR (African American) 67.8 ml/min; Est GFR (Non-African American) 58.5 ml/min; Magnesium 2.1 mg/dl (1.7-2.4); Potassium 4.3 mmol/L (3.5-5.1)
[2024-03-06 06:49] LABS: Troponin I High Sensitivity 21.9 pg/ml (0-20)
[2024-03-06 07:20] LABS: INR 2.8 (0.9-1.1); Prothrombin Time 27.4 Seconds (9.0-12.0)
--- NOTE | 2024-03-06 08:00 | XRay Report ---
XR chest 1V portable HISTORY: Dyspnea COMPARISON: Chest 06/27/2023. FINDINGS: No pneumothorax. The heart remains mildly enlarged. Small bilateral pleural effusions and p atchy bibasilar densities have progressed. This progressive interstitial/vascular thickening consiste nt with mild pulmonary edema. No acute fractures. Calcifications within the aortic knob. IMPRESSION: 1. Cardiomegaly with mild interstitial pulmonary edema. This has progressed. 2. Small bilateral pleural effusions/densities have also progressed. ACT 112: Negative or not required by law. Electronically signed by: Andrew Mendoza M.D. 03/06/2024 7:59 AM
[2024-03-06] MEDS: ASPIRIN 81 MG ECTAB PO SCH (08:23)
[2024-03-06] MEDS: allopurinoL 300 MG TAB PO SCH (08:23)
[2024-03-06] MEDS: CHOLECALCIFEROL 25 MCG (1000 UNITS) TAB PO SCH (08:25)
[2024-03-06] MEDS: FAMOTIDINE 20 MG TAB PO SCH (08:25)
[2024-03-06] MEDS: FINASTERIDE 5 MG TAB PO SCH (08:26)
[2024-03-06] MEDS: FUROSEMIDE 40 MG/4 ML VIAL IV SCH ×2 (08:26→16:16)
[2024-03-06] MEDS: PANTOprazole 40 MG TAB PO SCH (08:27)
[2024-03-06] MEDS: MULTIVITAMIN TAB PO SCH (08:27)
[2024-03-06] MEDS: METOPROLOL SUCC 50MG EXT REL TAB PO SCH ×2 (08:27→20:25)
[2024-03-06] MEDS: SPIRONOLACTONE 25 MG TAB PO SCH ×2 (08:28→16:12)
[2024-03-06] MEDS: POTASSIUM CHLORIDE CRTAB 20 MEQ TABCR PO SCH (08:28)
[2024-03-06] MEDS: traMADol HCL 50 MG TABLET PO SCH (08:39)
[2024-03-06 09:06] LABS: Thyroid Stimulating Hormone 3.27 uIu/ml (0.300-4.500)
--- NOTE | 2024-03-06 09:08 | Cardiology Consultation ---
Date of Consultation March 06, 2024 Assessment & Plan (1) Permanent atrial fibrillation with rapid ventricular response: (2) Pleural effusion on left: (3) Pleural effusion on right: (4) Acute on chronic systolic heart failure, NYHA class 3: (5) Nonischemic congestive cardiomyopathy: Plan Impression/Plan: 1.Acute on Chronic HFrEF 2.Nonischemic CMP 3.AFIB RVR 4.B/L Pleural Effusion R>L 03/05/2024: -Patient is hypervolemic on exam with notable weight gain. 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 -Will increase IV Lasix to 80 mg BID. -Recommend switching to Torsemide at discharge instead of Lasix. -Telemetry reviewed: NSR 90s with PVCs. I suspect his rates will improve with diuresis. -Anticoagulated with Coumadin. INR has been therapeutic. Denies abnormal bleeding. -Continue ASA, Digoxin, Toprol, and Spironolactone -Please document accurate I&Os -Monitor and replace electrolytes as needed. (Recommend K > 4.0 & Mag > 2.0) -Please record daily weights -2L fluid restriction -2 gm sodium restriction -Please apply compression stockings or tabatha wraps first thing in the morning and remove at night. Repeat daily. -Encourage patient to elevate lower extremities throughout the day. Case discussed with Dr. Leal I spent a total of 55 minutes on the date of service in preparation, delivery, and documentation of the care provided to this patient, excluding any time spent in the performance of separately billed services. DENG Evans Department of Cardiology, [facility] This chart was completed in part utilizing Speech Voice Recognition Software. Grammatical errors, random word insertions, pronoun errors, and incomplete sentences are an occasional consequence of this system due to software limitations, ambient noise, and hardware issues. Any formal questions or concerns about the content, text, or information contained within the body of this dictation should be directly addressed to the provider for clarification. Supervising Physician Co-Signing Physician Notes Attending attestation: Case reviewed with the advanced practitioner. I have personally performed a history and physical examination on the patient. I have reviewed the advanced practitioner's documentation on the date of service referenced in note, and I agree with, and take responsibility for the plan of care. I spent a total of 20 minutes coordinating, documenting, and providing care for this patient excluding time spent in the performance of separately billed services or time spent by another provider. Jorden Leal DO History of Present Illness Requesting Physician: Henri Romeo MD Attending Physician: Dr. Leal History of Present Illness Complex 83 yo male presented to [facility] on 03/05/24 for evaluation of increased shortness of breath and cough x3 days. In the ED he was found to be in AFIB RVR with rates in the 140s.Received IV Lasix, Digoxin, Lopressor, and Cardizem. CTA chest showed small L pleural effusion and moderate R pleural effusion. Placed on 2LNC. Does not wear supplemental O2 at home.Patient is a resident of a SNF. typically manages his medications there because they are short staffed. Patient reports weight gain and swelling. Has not been wearing CPAP x5 months. Sleeps in a recliner at bedside. Denies PND, orthopnea, abdominal bloating, and early satiety. Unclear if he follows dietary recommendations (fluid/sodium restrictions). Past Medical History: 1.Non-ischemic, congestive cardiomyopathy, with initial LVEF 20% -Recent EF 45-49% 10/2023 2.Mild CAD by 04/29/2010 catheterization. 3.Permanent atrial fibrillation Dx 04/25/2010 -Unsuccessful DCCV. Amio d/c. 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 15.GERD 16.Chronic back pain, bilateral knee pain. 17.Hematuria, bladder lesion, negative for malignancy. BPH, status post TURP, November 2023, followed by [facility] Allergies Allergy/AdvReac Type Severity Reaction Status Date / Time adhesive AdvReac Intermediate sensitive Verified 03/06/24 00:25 skin to strong adhesives Home Medications Medication Instructions Recorded Confirmed Type alfuzosin 10 mg tablet,extended 10 mg PO QPM 09/29/18 03/06/24 History release 24 hr allopurinol 300 mg tablet 300 mg PO QAM 09/29/18 03/06/24 History cholecalciferol (vitamin D3) 25 2,000 units PO QAM 09/29/18 03/06/24 History mcg (1,000 unit) tablet (Vitamin D3) colchicine 0.6 mg tablet 0.6 mg PO UD PRN gout flare 09/29/18 03/06/24 History digoxin 250 mcg (0.25 mg) tablet 125 mcg PO 3XWK 09/29/18 03/06/24 History fluticasone propionate 50 2 spray intranasal BID PRN Nasal 09/29/18 03/06/24 History mcg/actuation nasal Congestion spray,suspension (Flonase Allergy Relief) levothyroxine 88 mcg tablet 88 mcg PO QAM 09/29/18 03/06/24 History metoprolol succinate 50 mg See Rx Instructions .Route .COMPLEX 09/29/18 03/06/24 History tablet,extended release 24 hr multivitamin 1 tab PO QAM 09/29/18 03/06/24 History potassium chloride 20 mEq 20 meq PO QAM 09/29/18 03/06/24 History tablet,extended release(part/cryst) pravastatin 40 mg tablet 40 mg PO HS 09/29/18 03/06/24 History tramadol 50 mg tablet 50 mg PO BID 09/29/18 03/06/24 History warfarin 5 mg tablet See Rx Instructions .Route .COMPLEX 09/29/18 03/06/24 History triamcinolone acetonide 0.1 % 1 applic topical BID PRN Skin 06/18/21 03/06/24 History topical cream Irritation mupirocin 2 % topical ointment 1 applic topical BID PRN Skin 12/06/21 03/06/24 History Irritation pantoprazole 40 mg tablet,delayed 40 mg PO QAM 08/15/23 03/06/24 History release acetaminophen 500 mg capsule 1,000 mg PO Q6H PRN Pain 10/20/23 03/06/24 History calcium carbonate (Calcium Antacid) 400 mg PO BID PRN gerd 10/20/23 03/06/24 History famotidine 20 mg tablet 20 mg PO QAM 10/20/23 03/06/24 History finasteride 5 mg tablet 5 mg PO QAM 10/20/23 03/06/24 History lactulose 10 gram/15 mL oral 10 g PO BID PRN Constipation 10/20/23 03/06/24 History solution mirtazapine 15 mg tablet 15 mg PO HS 10/20/23 03/06/24 History naloxone 4 mg/actuation nasal spray 4 mg intranasal UD PRN overdose 10/20/23 03/06/24 History ondansetron HCl 4 mg tablet 4 mg PO Q8H PRN Nausea 10/20/23 03/06/24 History sodium chloride 0.65 % nasal spray 1 spray intranasal BID PRN Dry 10/20/23 03/06/24 History aerosol (Saline Mist) Nasal Passages aspirin 81 mg tablet,delayed 81 mg PO QAM 10/21/23 03/06/24 History release sennosides 8.6 mg capsule (senna) 8.6 mg PO BID PRN constipation #30 10/21/23 03/06/24 Rx caps polyethylene glycol 3350 17 17 g PO DAILY PRN Constipation 11/20/23 03/06/24 History gram/dose oral powder (Miralax) metformin 500 mg tablet,extended See Rx Instructions .Route .COMPLEX 01/01/24 03/06/24 History release 24 hr spironolactone 25 mg tablet See Rx Instructions .Route .COMPLEX 01/01/24 03/06/24 History furosemide 80 mg tablet (Lasix) See Rx Instructions .Route .COMPLEX 01/21/24 03/06/24 History albuterol sulfate 90 mcg/actuation 2 puff inhalation QID PRN 03/06/24 03/06/24 History aerosol inhaler Shortness Of Breath Or Wheezing Patient History Medical History Hematuria Secondary polycythemia Obesity Congestive cardiomyopathy Severe sepsis 2018 [facility] admission sepsis 2/2 cellulitis R leg Hyponatremia Cellulitis of right leg 2018 [facility] admission sepsis 2/2 cellulitis R leg UTI (urinary tract infection) most recent early 2023>no recent issues Surgical History History of esophagogastroduodenoscopy (EGD) Hx of colonoscopy Status post inguinal hernia repair Status post appendectomy Family History Other Hypertension Stroke Social History Smoking Status: Never smoker Second Hand Exposure: No; Do You Dip or Chew Tobacco: No; Tobacco Cessation Education Requested by Patient: No Hx Alcohol Use: No Hx Substance Use: No Preferred Language: Palestinian Communication Ability: Effective Visual Impairment: Limited Hearing Ability: Use of Hearing Aid Elderly Caregiver Required: No Beliefs That Will Affect Care: None marital status: Current Living Situation: Spouse and Family Current Living Situation Comment: [employer] current occupational status: retired How many Children do You have: 6 Other Information That Helps Us Care for You: No Feels Safe at Home: Yes Safety Concerns: Feels Safe At This Time Diet: regular caffeine: No Physical Activity Frequency: Does not Exercise Seatbelt Use: always Assistive Devices: CPAP, Glasses, Hearing Aid - Bilateral and Walker Review of Systems Review of Systems: All systems reviewed & are unremarkable except as noted in HPI & below Physical Exam Constitutional: WD/WN, vitals as above Respiratory: normal respiratory effort and + cough; no respiratory distress Auscultation: + diminished lung sounds and + crackles Cardiovascular: Rate/Rhythm: regular rate and regular rhythm Heart Sounds: normal S1 and normal S2 Vessels: + JVD Extremities: + edema +venous stasis Gastrointestinal (Abdomen): Percussion/Palpation: abdomen nontender +Round Neurologic: PERRL, EOMI, accommodation nl, no face palsy, no dysarthria +OHKAY OWINGEH Results & Data Vital Signs (Past 12 Hours) Vital Signs Temp Pulse Pulse Resp BP BP Pulse Ox 03/06/24 08:46 81 17 138/99 99 03/06/24 07:23 76 03/06/24 04:47 03/06/24 04:47 88 18 121/70 96 03/06/24 03:30 03/06/24 03:30 103 H 18 120/72 95 03/06/24 03:00 95 H 03/06/24 01:56 133 H 03/06/24 01:55 121 H 18 136/99 96 03/06/24 01:52 132 H 136/99 03/06/24 01:19 128 H 151/121 H 03/06/24 01:05 134 H 03/06/24 00:45 118 H 18 125/95 93 03/05/24 23:15 102 H 18 105/73 93 03/05/24 22:58 122 H 03/05/24 22:50 03/05/24 22:50 99 H 20 96 03/05/24 22:50 96 03/05/24 22:40 36.7 C 53 L 18 127/83 93 Pulse Ox O2 Del Method O2 Del Method O2 Flow Rate O2 Flow Rate 03/06/24 08:46 Nasal Cannula 2 03/06/24 07:23 03/06/24 04:47 Nasal Cannula 2 03/06/24 04:47 Nasal Cannula 2 03/06/24 03:30 96 Nasal Cannula 2 03/06/24 03:30 Nasal Cannula 2 03/06/24 03:00 03/06/24 01:56 03/06/24 01:55 Nasal Cannula 2 03/06/24 01:52 03/06/24 01:19 03/06/24 01:05 03/06/24 00:45 Room Air 03/05/24 23:15 Room Air 03/05/24 22:58 03/05/24 22:50 Room Air 03/05/24 22:50 Room Air 03/05/24 22:50 Room Air 03/05/24 22:40 Room Air Laboratory Results Cardiac Enzymes 03/05/24 03/06/24 Range/Units 23:00 06:01 AST 18 (13-39) U/L Troponin I High Sens 11.6 21.9 H D (0-20) pg/ml B-Natriuretic Peptide 315 H (0-100) pg/ml Coagulation 03/05/24 03/06/24 Range/Units 23:00 06:01 PT 27.6 H 27.4 H (9.0-12.0) Seconds APTT 45 H (21-31) Seconds B-Natriuretic Peptide 315 H (0-100) pg/ml CBC 03/05/24 03/06/24 Range/Units 23:00 06:01 WBC 9.11 8.39 (4.8-10.8) K/ul RBC 4.38 L 4.14 L (4.70-6.10) M/uL Hgb 13.7 L 12.8 L (14.0-18.0) g/dl Hct 43.4 40.8 L (42.0-52.0) % Plt Count 184 149 (130-400) K/uL Neut # (Auto) 5.20 5.67 (1.40-6.50) K/uL Lymph # (Auto) 2.92 1.96 (1.20-3.40) K/uL [place] # (Auto) 0.70 H 0.61 H (0.11-0.59) K/uL Eos # (Auto) 0.20 0.09 (0.00-0.50) K/uL Baso # (Auto) 0.06 0.03 (0.00-0.20) K/uL Comprehensive Metabolic Panel 03/05/24 03/06/24 Range/Units 23:00 06:01 Sodium 134 L 136 (136-145) mmol/L Potassium 4.6 4.3 (3.5-5.1) mmol/L Chloride 100 100 (98-107) mmol/L Carbon Dioxide 22 26 (21-32) mmol/L BUN 40 H 37 H (6-23) mg/dl Creatinine 1.32 1.15 (0.6-1.4) mg/dl Glucose 253 H 202 H (70-99(Fasting)) mg/dl Calcium 9.3 9.2 (8.6-10.3) mg/dl AST 18 (13-39) U/L ALT 11 (7-52) U/L Alkaline Phosphatase 68 (34-104) U/L Total Protein 7.0 (6.0-8.3) gm/dl Albumin 4.2 (3.4-5.0) gm/dl Intake and Output 03/05/24 03/06/24 03/06/24 22:59 06:59 14:59 Intake Total 850 / 850 Output Total 1000 / 1000 1375 / 1375 Balance -150 / -150 -1375 / -1375 Intake: IV 100 / 100 Piperacillin/Tazobactam 4.5 gm 100 / 100 In 100 ml @ 200 mls/hr IV NOW ONE Rx#:[id number] Oral 750 / 750 Output: Urine 1000 / 1000 1375 / 1375 Other: Weight 125.4 kg Weight Measurement Method Built in [facility] Diagnostic Findings EKG 03/05/2024 AFIB RVR 145 bpm,IVCD, compared to previous tracings, the IVCD is chronic Echo 10/26/2023 The examination is adequate to evaluate the referral indication. There was atrial fibrillation during the examination. The left ventricular cavity size is normal. The LV wall thickness is normal. There is mild diffuse left ventricular hypokinesis. The qualitative LV ejection fraction is 45-49% (mildly reduced). The left ventricular diastolic function is abnormal by 2-D findings. The left atrium is mildly enlarged. Mild aortic valve sclerosis is present. Mild mitral regurgitation is present. Mild tricuspid regurgitation is present. Compared to prior study of October 08, 2022, there is no significant change.
[2024-03-06] MEDS: INSULIN ASPART PER UNIT CHARGE SC SCH (10:28)
--- NOTE | 2024-03-06 16:00 | Hospitalist Progress Note ---
Date of Service March 06, 2024 Assessment & Plan (1) Rapid atrial fibrillation: Plan: 83-year-old male with past medical history significant for type 2 diabetes, hyperlipidemia, hypothyroidism, obstructive sleep apnea, permanent atrial fibrillation, hypertension, CAD, gout arthropathy, venous stasis dermatitis, secondary polycythemia, obesity, nonischemic cardiomyopathy with initial EF of 20% echo done in October 2023 showed EF of 45 to 49%, BPH s/p TURP who presented to the ED with shortness of breath and found to be in rapid A-fib and CHF exacerbation. Acute on chronic HFrEF with bilateral pleural effusion and hypoxia- CHF exacerbation likely due to dietary indiscretion- BNP 315, imaging with R>L pleural effusion, WRIGHT and hypoxic on 3 L NC. Takes lasix 80 am and 40 pm. Seen by cardiology and recommendations noted - Continue iv lasix 80 bid, monitor daily weight, I and Os, daily labs - Echo with EF 45-50% with mild global hypokinesia of LV but no significant valvular disease - on GDMT with toprol, aldactone. PAF with RVR- improved, now rate controlled s/p IV Cardizem, IV Lopressor and IV digoxin. Continue home metoprolol succinate, digoxin and warfarin. INR therapeutic. Recheck in am DM-1- Hold home meds. Continue carb diet and insulin. Adjust as indicated JOHN- not using CPAP for last 6 months Hypothyroid- on sythroid Hypertension- on metoprolol succinate and diuretics GERD- on Protonix and famotidine BPH s/p TURP- on finasteride H/o gout- on allopurinol DVT ppx- INR therapeutic on coumadin Dispo- Pending volume optimization and improvement in hypoxia. Continue iv lasix and NC Updated at beside Admission and Anticipated Discharge Date Admission Date: March 06, 2024 Subjective Patient was seen and examined at bedside in presence of his . Feels okay. States he still has dyspnea on exertion. Also states he is noncompliant with salt and fluid intake. Takes lasix 80 mg am and 40 mg in the afternoon at home. No fever, chills, chest pain, nausea, vomiting. Review of Systems Review of Systems: All systems reviewed & are unremarkable except as noted in Subjective Physical Exam Physical Exam: General: Lying comfortably in bed, not in distress, on NC HEENT: EOMI, BRYAN, MMM Chest: Fair breath sounds bilaterally with basilar crackles CVS: Regular rate and rhythm, normal heart sounds, no murmur Abdomen: Soft, non tender, not distended, normal bowel sounds Neuro: Awake, alert, oriented, conversing well, non focal Extremities: Mild LE edema Results & Data Results & Data Vital Signs (Past 12 Hours) Vital Signs Temp Pulse Pulse Resp BP Pulse Ox O2 Del Method 03/06/24 15:27 36.7 C 18 123/70 97 Nasal Cannula 03/06/24 13:19 Nasal Cannula 03/06/24 12:30 76 18 128/90 96 Nasal Cannula 03/06/24 08:46 81 17 138/99 99 Nasal Cannula 03/06/24 07:23 76 03/06/24 04:47 Nasal Cannula 03/06/24 04:47 88 18 121/70 96 Nasal Cannula O2 Flow Rate 03/06/24 15:27 3 03/06/24 13:19 3 03/06/24 12:30 2 03/06/24 08:46 2 03/06/24 07:23 03/06/24 04:47 2 03/06/24 04:47 2 Laboratory Results Short CBC 03/05/24 03/06/24 Range/Units 23:00 06:01 WBC 9.11 8.39 (4.8-10.8) K/ul Hgb 13.7 L 12.8 L (14.0-18.0) g/dl Hct 43.4 40.8 L (42.0-52.0) % Plt Count 184 149 (130-400) K/uL BMP 03/05/24 03/06/24 23:00 06:01 Sodium 134 L 136 Potassium 4.6 4.3 Chloride 100 100 Carbon Dioxide 22 26 BUN 40 H 37 H Creatinine 1.32 1.15 Glucose 253 H 202 H Calcium 9.3 9.2 Liver Function 03/05/24 Range/Units 23:00 Total Bilirubin 0.8 (0.2-1.0) mg/dl AST 18 (13-39) U/L ALT 11 (7-52) U/L Alkaline Phosphatase 68 (34-104) U/L Albumin 4.2 (3.4-5.0) gm/dl Urine 03/06/24 Range/Units 01:24 Urine Color Yellow Urine Appearance Clear (Clear) Urine pH 5.5 (4.5-7.5) Ur Specific [place] 1.020 (1.000-1.030) Urine Protein Negative (Negative) Urine Glucose (UA) Negative (Negative)
[2024-03-06] MEDS: WARFARIN SOD 2.5 MG TAB PO SCH (16:11)
[2024-03-06 18:48] LABS: BUN Creatinine Ratio 25.2 (10-20); Calcium 9.3 mg/dl (8.6-10.3); Creatinine Clr Calc Pharmacy 57.6 ml/min; Est GFR (African American) 57.9 ml/min; Potassium 4.1 mmol/L (3.5-5.1)
[2024-03-06] MEDS: TAMSULOSIN HCL 0.4 MG CAP PO SCH (20:24)
[2024-03-06] MEDS: MIRTAZAPINE TAB 15 MG TAB PO SCH (20:24)
[2024-03-06] MEDS: PRAVASTATIN SOD 40 MG TAB PO SCH (20:25)
[2024-03-06] MEDS: MENTHOL-ZINC OXIDE 360 APPLN/120 GM TUBE EXT SCH (20:28)
[2024-03-07 06:56] LABS: Prothrombin Time 57.3 Seconds (9.0-12.0)
[2024-03-07 07:19] LABS: BUN Creatinine Ratio 30.1 (10-20); Calcium 9.1 mg/dl (8.6-10.3); Creatinine Clr Calc Pharmacy 70.9 ml/min; Est GFR (African American) 77.5 ml/min; Est GFR (Non-African American) 66.9 ml/min; Potassium 3.8 mmol/L (3.5-5.1)
[2024-03-07 07:41] LABS: Estimated Average Glucose 160 mg/dl; Hemoglobin A1C 7.2 % (4.5-5.6)
[2024-03-07 07:44] LABS: INR 6.2 (0.9-1.1)
--- NOTE | 2024-03-07 10:08 | Cardiology Progress Note ---
Date of Service March 07, 2024 Assessment & Plan (1) Acute on chronic systolic heart failure, NYHA class 3: (2) Permanent atrial fibrillation with rapid ventricular response: (3) Pleural effusion on left: (4) Pleural effusion on right: (5) Nonischemic congestive cardiomyopathy: (6) Supratherapeutic INR: Plan Continue IV diuresis with Lasix 80 mg twice daily. Monitor fluid balance, daily, GFR, and electrolytes. 2 g sodium restriction. 2 L fluid restriction. Continue ASA, Digoxin, Toprol, and Spironolactone. Hold warfarin today. Repeat INR this afternoon. CBC in AM 03/08/2024. Findings and recommendations discussed with both the patient and his via telephone. I spent a total of 40 minutes on the date of service in preparation, delivery, and documentation of the care provided to this patient, excluding any time spent in the performance of separately billed services. Admission and Anticipated Discharge Date Admission Date: March 06, 2024 Subjective 83-year-old male seen and examined at the bedside. Fluid balance -3 L overnight. Serum creatinine remains stable. INR trending upward to 6.2. No signs/symptoms of GI/GI blood loss. Hgb trending down slightly to 12.8 g/dL today. Telemetry reveals atrial fibrillation, heart rate 80-90s. Review of Systems Review of Systems: All systems reviewed & are unremarkable except as noted in Subjective Physical Exam Constitutional: well nourished and + morbidly obese; no acute distress Respiratory: no respiratory distress and no labored breathing Auscultation: + diminished lung sounds (bases Bilateral) Cardiovascular: Rate/Rhythm: + irregularly irregular Heart Sounds: normal S1 and normal S2; no murmur Extremities: + edema (2+ pretibial edema) Gastrointestinal (Abdomen): Inspection/Auscultation: abdomen normal to inspection and normal bowel sounds; abdomen not distended Neurologic: CN's II-XI intact bilaterally and moves all extremities; no focal motor deficits Results & Data Vital Signs (Past 12 Hours) Vital Signs Temp Pulse Pulse Resp BP BP Pulse Ox 03/07/24 09:44 92 03/07/24 07:14 36.3 C L 80 18 116/77 98 03/07/24 03:08 36.3 C L 88 19 123/81 98 03/07/24 00:51 61 03/06/24 22:50 36.6 C 77 18 128/77 96 O2 Del Method O2 Flow Rate 03/07/24 09:44 Room Air 03/07/24 07:14 Nasal Cannula 3 03/07/24 03:08 Nasal Cannula 03/07/24 00:51 03/06/24 22:50 Nasal Cannula Laboratory Results Cardiac Enzymes 03/06/24 Range/Units 12:11 Troponin I High Sens 18.1 (0-20) pg/ml Coagulation 03/07/24 Range/Units 06:16 PT 57.3 H (9.0-12.0) Seconds Comprehensive Metabolic Panel 03/06/24 03/07/24 Range/Units 16:41 06:16 Sodium 135 L 138 (136-145) mmol/L Potassium 4.1 3.8 (3.5-5.1) mmol/L Chloride 100 101 (98-107) mmol/L Carbon Dioxide 26 29 (21-32) mmol/L BUN 33 H 31 H (6-23) mg/dl Creatinine 1.31 1.03 (0.6-1.4) mg/dl Glucose 183 H 151 H (70-99(Fasting)) mg/dl Calcium 9.3 9.1 (8.6-10.3) mg/dl Intake and Output 03/06/24 03/07/24 03/07/24 22:59 06:59 14:59 Output Total 550 / 3650 750 / 3650 Balance -550 / -3650 -750 / -3650 Output: Urine 300 / 2650 Urine Amount (Catheter) 250 / 1000 750 / 1000 [place]/Indwelling 250 / 1000 750 / 1000 Other: Other Intake Source sips Weight 117.7 kg Weight Measurement Method Built in [facility]
--- NOTE | 2024-03-07 13:00 | Hospitalist Progress Note ---
Date of Service March 07, 2024 Assessment & Plan (1) Rapid atrial fibrillation: Plan: 83-year-old male with past medical history significant for type 2 diabetes, hyperlipidemia, hypothyroidism, obstructive sleep apnea, permanent atrial fibrillation, hypertension, CAD, gout arthropathy, venous stasis dermatitis, secondary polycythemia, obesity, nonischemic cardiomyopathy with initial EF of 20% echo done in October 2023 showed EF of 45 to 49%, BPH s/p TURP who presented to the ED with shortness of breath and found to be in rapid A-fib and CHF exacerbation. Acute on chronic HFrEF with bilateral pleural effusion and hypoxia- CHF exacerbation likely due to dietary indiscretion- BNP 315, imaging with R>L pleural effusion, WRIGHT and hypoxic on 3 L NC, Now resolved and back to room air. Takes lasix 80 am and 40 pm. Seen by cardiology and recommendations noted - Continue iv lasix 80 bid, monitor daily weight, I and Os, daily labs - Echo with EF 45-50% with mild global hypokinesia of LV but no significant valvular disease - on GDMT with toprol, aldactone. PAF with RVR- improved, now rate controlled s/p IV Cardizem, IV Lopressor and IV digoxin. Continue home metoprolol succinate, digoxin. INR supratherapeutic and hold Coumadin for today. Recheck in am DM-2- Hold home meds. Continue carb diet and insulin. Adjust as indicated JOHN- not using CPAP for last 6 months Hypothyroid- on sythroid Hypertension- on metoprolol succinate and diuretics GERD- on Protonix and famotidine BPH s/p TURP- on finasteride H/o gout- on allopurinol DVT ppx- hold Coumadin, as INR supratherapeutic. Dispo- Pending volume optimization, likely tomorrow Time spent approximately 50 minutes Admission and Anticipated Discharge Date Admission Date: March 06, 2024 Subjective patient was seen and examined at bedside. He feels improved. He was in supplemental oxygen which was weaned down to room air today. He is on [place] for accurate ADY's. He is still on IV Lasix. INR supratherapeutic today with Coumadin. He offers no new complaints today. Review of Systems Review of Systems: All systems reviewed & are unremarkable except as noted in Subjective Physical Exam Physical Exam: General: Lying comfortably in bed, not in distress, on NC HEENT: EOMI, BRYAN, MMM Chest: Fair breath sounds bilaterally CVS: Regular rate and rhythm, normal heart sounds, no murmur Abdomen: Soft, non tender, not distended, normal bowel sounds Neuro: Awake, alert, oriented, conversing well, non focal Extremities: Mild LE edema Results & Data Results & Data Vital Signs (Past 12 Hours) Vital Signs Temp Pulse Pulse Resp BP BP Pulse Ox 03/07/24 10:52 36.4 C L 104 H 19 135/81 94 03/07/24 09:44 92 03/07/24 07:14 36.3 C L 80 18 116/77 98 03/07/24 07:00 77 03/07/24 03:08 36.3 C L 88 19 123/81 98 O2 Del Method O2 Flow Rate 03/07/24 10:52 Room Air 03/07/24 09:44 Room Air 03/07/24 07:14 Nasal Cannula 3 03/07/24 07:00 03/07/24 03:08 Nasal Cannula Laboratory Results BMP 03/06/24 03/07/24 16:41 06:16 Sodium 135 L 138 Potassium 4.1 3.8 Chloride 100 101 Carbon Dioxide 26 29 BUN 33 H 31 H Creatinine 1.31 1.03 Glucose 183 H 151 H Calcium 9.3 9.1
[2024-03-07] MEDS: POLYETHYLENE (MIRALAX) 17 GM PACK PO PRN (13:19)
[2024-03-07] MEDS: DIGOXIN 0.125 MG TAB PO SCH (17:11)
[2024-03-07] MEDS: METOPROLOL TARTRATE 1 MG/ML VIAL IV PRN (17:48)
--- NOTE | 2024-03-07 23:19 | Electrocardiogram Report ---
Test Reason : Blood Pressure : / mmHG Vent. Rate : 145 BPM Atrial Rate : 000 BPM P-R Int : 000 ms QRS Dur : 122 ms QT Int : 314 ms P-R-T Axes : 000 152 012 degrees QTc Int : 487 ms Atrial fibrillation with rapid ventricular response Left bundle branch block Right axis deviation Abnormal ECG When compared with ECG of 08-DEC-2023 19:19, T wave inversion now evident in Inferior leads Confirmed by Sheng Aguillon ([id number]) on 03/07/2024 11:18:43 PM Referred By: REFERRED SELF Confirmed By:Sheng Aguillon
--- NOTE | 2024-03-07 23:21 | Electrocardiogram Report ---
Test Reason : Blood Pressure : / mmHG Vent. Rate : 115 BPM Atrial Rate : 000 BPM P-R Int : 000 ms QRS Dur : 128 ms QT Int : 356 ms P-R-T Axes : 000 156 025 degrees QTc Int : 492 ms Atrial fibrillation with rapid ventricular response Left bundle branch block Right axis deviation Abnormal ECG When compared with ECG of 05-MAR-2024 22:48, (unconfirmed) No significant change was found Confirmed by Sheng Aguillon ([id number]) on 03/07/2024 11:20:48 PM Referred By: REFERRED SELF Confirmed By:Sheng Aguillon
--- NOTE | 2024-03-08 06:59 | Electrocardiogram Report ---
Test Reason : Blood Pressure : / mmHG Vent. Rate : 091 BPM Atrial Rate : 375 BPM P-R Int : 000 ms QRS Dur : 102 ms QT Int : 358 ms P-R-T Axes : 000 -30 128 degrees QTc Int : 440 ms Atrial fibrillation with premature ventricular or aberrantly conducted complexes Left axis deviation Low voltage QRS Septal infarct (cited on or before 08-DEC-2023) Possible Lateral infarct (cited on or before 08-DEC-2023) Abnormal ECG When compared with ECG of 06-MAR-2024 01:13, (unconfirmed) QRS duration has decreased Nonspecific T wave abnormality now evident in Anterolateral leads Confirmed by Sheng Aguillon ([id number]) on 03/08/2024 6:58:47 AM Referred By: REFERRED SELF Confirmed By:Sheng Aguillon
[2024-03-08] MEDS: SENNA 8.6 MG TAB PO PRN (08:01)
[2024-03-08 08:50] LABS: Hematocrit (blood only) 44.8 % (42.0-52.0); Hemoglobin 14.2 g/dl (14.0-18.0); Mean Corpuscular Hemoglobin 31.2 pg (25.0-34.0); Mean Corpuscular Hgb Conc 31.7 g/dL (32.0-36.0); Mean Corpuscular Volume 98.5 fL (80.0-100.0); Platelet Count 169 K/uL (130-400); RDW Coefficient of Variation 16.8 % (11.5-14.5); Red Blood Count 4.55 M/uL (4.70-6.10); White Blood Count 11.11 K/ul (4.8-10.8)
[2024-03-08 09:08] LABS: INR 1.9 (0.9-1.1); Prothrombin Time 19.4 Seconds (9.0-12.0)
[2024-03-08 09:21] LABS: BUN Creatinine Ratio 29.9 (10-20); Calcium 9.7 mg/dl (8.6-10.3); Creatinine Clr Calc Pharmacy 67.8 ml/min; Est GFR (Non-African American) 63.9 ml/min; Magnesium 2.2 mg/dl (1.7-2.4); Potassium 3.9 mmol/L (3.5-5.1)
--- NOTE | 2024-03-08 11:34 | Electrocardiogram Report ---
Test Reason : Blood Pressure : / mmHG Vent. Rate : 076 BPM Atrial Rate : 277 BPM P-R Int : 000 ms QRS Dur : 108 ms QT Int : 376 ms P-R-T Axes : 000 247 122 degrees QTc Int : 423 ms Atrial fibrillation Right superior axis deviation Diffuse Minor Nonspecific T wave abnormality Abnormal ECG When compared with ECG of 07-MAR-2024 05:25, No significant change was found Confirmed by Jake Rivera ([id number]) on 03/08/2024 11:33:35 AM Referred By: REFERRED SELF Confirmed By:Jake Rivera
--- NOTE | 2024-03-08 12:33 | Cardiology Progress Note ---
Date of Service March 08, 2024 Assessment & Plan (1) Acute on chronic systolic heart failure, NYHA class 3: (2) Permanent atrial fibrillation with rapid ventricular response: (3) Pleural effusion on left: (4) Pleural effusion on right: (5) Nonischemic congestive cardiomyopathy: Plan Continue IV diuresis with Lasix 80 mg twice daily. Monitor fluid balance, daily, GFR, and electrolytes. 2 g sodium restriction. 2 L fluid restriction. Continue ASA, Digoxin, Toprol, and Spironolactone. INR 1.9 today. Suspect lab error 03/07/2024. Restart warfarin. Repeat INR in AM. Findings and recommendations discussed with both the patient and his son at bedside. I spent a total of 40 minutes on the date of service in preparation, delivery, and documentation of the care provided to this patient, excluding any time spent in the performance of separately billed services. Admission and Anticipated Discharge Date Admission Date: March 06, 2024 Subjective 83-year-old male seen and examined at the bedside. Supplemental oxygen currently discontinued. Feeling better today. Fluid balance -1.7 L. Renal function remains stable. Denies orthopnea or PND. Son present at bedside. Offers no additional concerns/complaints. Review of Systems Review of Systems: All systems reviewed & are unremarkable except as noted in Subjective Physical Exam Constitutional: well nourished and + morbidly obese; no acute distress Respiratory: no respiratory distress and no labored breathing Auscultation: + diminished lung sounds (bases Bilateral) Cardiovascular: Rate/Rhythm: + irregularly irregular Heart Sounds: normal S1 and normal S2; no murmur Extremities: + edema (1+ pretibial edema with stasis changes) Gastrointestinal (Abdomen): Inspection/Auscultation: abdomen normal to inspection and normal bowel sounds; abdomen not distended Neurologic: CN's II-XI intact bilaterally and moves all extremities; no focal motor deficits Results & Data Vital Signs (Past 12 Hours) Vital Signs Temp Pulse Pulse Resp BP BP Pulse Ox 03/08/24 10:43 80 03/08/24 10:12 36.5 C 87 19 101/69 93 03/08/24 07:53 03/08/24 07:13 36.5 C 101 H 20 112/76 94 03/08/24 02:56 36.7 C 72 16 120/77 91 03/08/24 01:57 89 O2 Del Method 03/08/24 10:43 03/08/24 10:12 Room Air 03/08/24 07:53 Room Air 03/08/24 07:13 Room Air 03/08/24 02:56 Room Air 03/08/24 01:57 Laboratory Results Coagulation 03/08/24 Range/Units 08:16 PT 19.4 H (9.0-12.0) Seconds CBC 03/08/24 Range/Units 08:16 WBC 11.11 H (4.8-10.8) K/ul RBC 4.55 L (4.70-6.10) M/uL Hgb 14.2 (14.0-18.0) g/dl Hct 44.8 (42.0-52.0) % Plt Count 169 (130-400) K/uL Comprehensive Metabolic Panel 03/08/24 Range/Units 08:16 Sodium 138 (136-145) mmol/L Potassium 3.9 (3.5-5.1) mmol/L Chloride 99 (98-107) mmol/L Carbon Dioxide 30 (21-32) mmol/L BUN 32 H (6-23) mg/dl Creatinine 1.07 (0.6-1.4) mg/dl Glucose 161 H (70-99(Fasting)) mg/dl Calcium 9.7 (8.6-10.3) mg/dl Intake and Output 03/07/24 03/08/24 03/08/24 22:59 06:59 14:59 Intake Total 300 / 740 200 / 740 Output Total 650 / 2450 700 / 2450 Balance -350 / -1710 -500 / -1710 Intake: Oral 300 / 740 200 / 740 Output: Urine Amount (Catheter) 650 / 2450 700 / 2450 Hudson/Indwelling 650 / 2450 700 / 2450 Other: Weight 116.2 kg Weight Measurement Method Standing Scale
--- NOTE | 2024-03-08 13:12 | Hospitalist Progress Note ---
Date of Service March 08, 2024 Assessment & Plan (1) Rapid atrial fibrillation: Plan: 83-year-old male with past medical history significant for type 2 diabetes, hyperlipidemia, hypothyroidism, obstructive sleep apnea, permanent atrial fibrillation, hypertension, CAD, gout arthropathy, venous stasis dermatitis, secondary polycythemia, obesity, nonischemic cardiomyopathy with initial EF of 20% echo done in October 2023 showed EF of 45 to 49%, BPH s/p TURP who presented to the ED with shortness of breath and found to be in rapid A-fib and CHF exacerbation. Acute on chronic HFrEF with bilateral pleural effusion and hypoxia- CHF exacerbation likely due to dietary indiscretion- BNP 315, imaging with R>L pleural effusion, WRIGHT and hypoxic on 3 L NC, Now resolved and back to room air. Takes lasix 80 am and 40 pm. Seen by cardiology and recommendations noted - Continue iv lasix 80 bid, monitor daily weight, I and Os, daily labs - Echo with EF 45-50% with mild global hypokinesia of LV but no significant valvular disease - on GDMT with toprol, aldactone. PAF with RVR- improved, now rate controlled s/p IV Cardizem, IV Lopressor and IV digoxin. Had Afib with RVR again last evening and required IV lopressor. Continue home metoprolol succinate, digoxin. INR subtherapeutic and resume Coumadin. Recheck in am DM-2- Hold home meds. Continue carb diet and insulin. Adjust as indicated JOHN- not using CPAP for last 6 months Hypothyroid- on sythroid Hypertension- on metoprolol succinate and diuretics GERD- on Protonix and famotidine BPH s/p TURP- on finasteride H/o gout- on allopurinol DVT ppx- Coumadin Dispo- Pending volume optimization still on iv lasix per cardio Time spent approximately 50 minutes Admission and Anticipated Discharge Date Admission Date: March 06, 2024 Subjective Patient was seen and examined at bedside. Siting in chair, on room air. Feels better. States he had to stop due to dyspnea while ambulating yesterday. No fever, chills, CP, SOB, N/V. Review of Systems Review of Systems: All systems reviewed & are unremarkable except as noted in Subjective Physical Exam Physical Exam: General: Sitting comfortably in chair, not in distress, on room air HEENT: EOMI, BRYAN, MMM Chest: Fair breath sounds bilaterally CVS: Regular rate and rhythm, normal heart sounds, no murmur Abdomen: Soft, non tender, not distended, normal bowel sounds Neuro: Awake, alert, oriented, conversing well, non focal Extremities: Mild LE edema Hudson with dia urine Results & Data Results & Data Vital Signs (Past 12 Hours) Vital Signs Temp Pulse Pulse Resp BP BP Pulse Ox 03/08/24 10:43 80 03/08/24 10:12 36.5 C 87 19 101/69 93 03/08/24 07:53 03/08/24 07:13 36.5 C 101 H 20 112/76 94 03/08/24 02:56 36.7 C 72 16 120/77 91 03/08/24 01:57 89 O2 Del Method 03/08/24 10:43 03/08/24 10:12 Room Air 03/08/24 07:53 Room Air 03/08/24 07:13 Room Air 03/08/24 02:56 Room Air 03/08/24 01:57 Laboratory Results Short CBC 03/08/24 Range/Units 08:16 WBC 11.11 H (4.8-10.8) K/ul Hgb 14.2 (14.0-18.0) g/dl Hct 44.8 (42.0-52.0) % Plt Count 169 (130-400) K/uL BMP 03/08/24 08:16 Sodium 138 Potassium 3.9 Chloride 99 Carbon Dioxide 30 BUN 32 H Creatinine 1.07 Glucose 161 H Calcium 9.7
[2024-03-08 15:30] LABS: INR 1.8 (0.9-1.1); Prothrombin Time 18.8 Seconds (9.0-12.0)
[2024-03-08] MEDS: WARFARIN SOD 5 MG TAB PO SCH (16:30)
[2024-03-08] MEDS: ACETAMINOPHEN 325 MG TAB PO PRN (20:33)
[2024-03-09 08:17] LABS: Calcium 9.5 mg/dl (8.6-10.3); Magnesium 2.2 mg/dl (1.7-2.4); Potassium 3.9 mmol/L (3.5-5.1)
[2024-03-09 08:22] LABS: BUN Creatinine Ratio 28.6 (10-20); Creatinine Clr Calc Pharmacy 64.6 ml/min; Est GFR (Non-African American) 60.4 ml/min
[2024-03-09 08:25] LABS: INR 1.9 (0.9-1.1); Prothrombin Time 19.4 Seconds (9.0-12.0)
--- NOTE | 2024-03-09 13:53 | Cardiology Progress Note ---
Date of Service March 09, 2024 Assessment & Plan (1) Acute on chronic systolic heart failure, NYHA class 3: (2) Permanent atrial fibrillation with rapid ventricular response: (3) Pleural effusion on left: (4) Pleural effusion on right: (5) Nonischemic congestive cardiomyopathy: Plan Discontinue IV furosemide. Transition to oral torsemide 40 mg in the a.m., 20 mg in the afternoon. 2 g sodium restriction. 2 L fluid restriction. Continue ASA, Digoxin, Toprol, and Spironolactone. Restart Jardiance. INR 1.9 today. Continue warfarin. Repeat INR in AM. Findings and recommendations discussed with both the patient and his son at bedside. Outpatient cardiology follow-up in 1 to 2 weeks. I spent a total of 40 minutes on the date of service in preparation, delivery, and documentation of the care provided to this patient, excluding any time spent in the performance of separately billed services. Admission and Anticipated Discharge Date Admission Date: March 06, 2024 Subjective 83-year-old male seen and examined the bedside. Feeling better today. Edema improved. No longer requiring supplemental oxygen. Fluid balance -1.2 L. Ambulating to the restroom with walker. Denies any unusual shortness of breath. No orthopnea or PND. Son present at bedside. Offers no additional concerns/complaints. Weight is down 22 pounds since admission. Review of Systems Review of Systems: All systems reviewed & are unremarkable except as noted in Subjective Physical Exam Constitutional: well nourished and + morbidly obese; no acute distress Respiratory: no respiratory distress and no labored breathing Auscultation: + diminished lung sounds (bases Bilateral) Cardiovascular: Rate/Rhythm: + irregularly irregular Heart Sounds: normal S1 and normal S2; no murmur Extremities: + edema (1+ pretibial edema with stasis changes) Gastrointestinal (Abdomen): Inspection/Auscultation: abdomen normal to inspection and normal bowel sounds; abdomen not distended Neurologic: CN's II-XI intact bilaterally and moves all extremities; no focal motor deficits Results & Data Vital Signs (Past 12 Hours) Vital Signs Temp Pulse Pulse Resp BP BP Pulse Ox 03/09/24 10:46 36.5 C 89 19 127/80 94 03/09/24 10:22 83 03/09/24 09:45 03/09/24 07:17 36.3 C L 84 18 123/84 94 07/24/24 04:00 36.8 C 95 H 19 112/76 94 O2 Del Method 03/09/24 10:46 Room Air 03/09/24 10:22 03/09/24 09:45 Room Air 03/09/24 07:17 Room Air 03/09/24 04:00 Room Air Laboratory Results Coagulation 03/08/24 03/09/24 Range/Units 14:38 07:24 PT 18.8 H 19.4 H (9.0-12.0) Seconds Comprehensive Metabolic Panel 03/09/24 Range/Units 07:24 Sodium 137 (136-145) mmol/L Potassium 3.9 (3.5-5.1) mmol/L Chloride 99 (98-107) mmol/L Carbon Dioxide 26 (21-32) mmol/L BUN 32 H (6-23) mg/dl Creatinine 1.12 (0.6-1.4) mg/dl Glucose 155 H (70-99(Fasting)) mg/dl Calcium 9.5 (8.6-10.3) mg/dl Intake and Output 03/08/24 03/09/24 03/09/24 22:59 06:59 14:59 Intake Total 690 / 1515 175 / 1515 Output Total 1575 / 2725 500 / 2725 Balance -885 / -1210 -325 / -1210 - Intake: Oral 690 / 1515 175 / 1515 Output: Urine Amount (Catheter) 1575 / 2725 500 / 2725 Hudson/Indwelling 1575 / 2725 500 / 2725 # Bowel Movements Other: Weight 115.6 kg Weight Measurement Method Standing Scale
--- NOTE | 2024-03-09 14:53 | Hospitalist Progress Note ---
Date of Service March 09, 2024 Assessment & Plan (1) Rapid atrial fibrillation: Plan: 83-year-old male with past medical history significant for type 2 diabetes, hyperlipidemia, hypothyroidism, obstructive sleep apnea, permanent atrial fibrillation, hypertension, CAD, gout arthropathy, venous stasis dermatitis, secondary polycythemia, obesity, nonischemic cardiomyopathy with initial EF of 20% echo done in October 2023 showed EF of 45 to 49%, BPH s/p TURP who presented to the ED with shortness of breath and found to be in rapid A-fib and CHF exacerbation. Acute on chronic HFrEF with bilateral pleural effusion and hypoxia- CHF exacerbation likely due to dietary indiscretion- BNP 315, imaging with R>L pleural effusion, WRIGHT and hypoxic on 3 L NC, Now resolved and back to room air. Takes lasix 80 am and 40 pm. Seen by cardiology and recommendations noted - Continue iv lasix 80 bid, monitor daily weight, I and Os, daily labs. Transition to po torsemide 40 mg am and 20 mg pm per cardio, starting tomorrow. - Echo with EF 45-50% with mild global hypokinesia of LV but no significant valvular disease - on GDMT with toprol, aldactone. PAF with RVR- improved, now rate controlled s/p IV Cardizem, IV Lopressor and IV digoxin. Had Afib with RVR again last evening and required IV lopressor. Continue home metoprolol succinate, digoxin. INR improving, at 1.9, will give extra 2.5 mg coumadin today and recheck in am. DM-2- Hold home meds. Continue carb diet and insulin. Adjust as indicated JOHN- not using CPAP for last 6 months Hypothyroid- on sythroid Hypertension- on metoprolol succinate and diuretics GERD- on Protonix and famotidine BPH s/p TURP- on finasteride H/o gout- on allopurinol DVT ppx- Coumadin Dispo- stable for discharge back to [place] on oral torsemide. Time spent approximately 35 minutes Admission and Anticipated Discharge Date Admission Date: March 06, 2024 Subjective Patient was seen and examined at bedside. He feels fine. Denies any more dyspnea. No fever, chills, CP, SOB, N/V. Review of Systems Review of Systems: All systems reviewed & are unremarkable except as noted in Subjective Physical Exam Physical Exam: General: Lying in bed, not in distress, on room air HEENT: EOMI, BRYAN, MMM Chest: Fair breath sounds bilaterally CVS: Irregular, normal heart sounds Abdomen: Soft, non tender, not distended, normal bowel sounds Neuro: Awake, alert, oriented, conversing well, non focal Extremities: trace LE edema Results & Data Results & Data Vital Signs (Past 12 Hours) Vital Signs Temp Pulse Pulse Resp BP BP Pulse Ox 03/09/24 10:46 36.5 C 89 19 127/80 94 03/09/24 10:22 83 03/09/24 09:45 03/09/24 07:17 36.3 C L 84 18 123/84 94 03/09/24 04:00 36.8 C 95 H 19 112/76 94 O2 Del Method 03/09/24 10:46 Room Air 03/09/24 10:22 03/09/24 09:45 Room Air 03/09/24 07:17 Room Air 03/09/24 04:00 Room Air Laboratory Results BMP 03/09/24 07:24 Sodium 137 Potassium 3.9 Chloride 99 Carbon Dioxide 26 BUN 32 H Creatinine 1.12 Glucose 155 H Calcium 9.5
--- NOTE | 2024-03-09 15:45 | Discharge Summary ---
Date of Service March 09, 2024 Admission HPI Per Admitting Provider 83-year-old male with past medical history significant for type 2 diabetes, hyperlipidemia, hypothyroidism, obstructive sleep apnea, permanent atrial fibrillation, hypertension, CAD, gout arthropathy, venous stasis dermatitis, secondary polycythemia, obesity, nonischemic cardiomyopathy with initial EF of 20% echo done in October 2023 showed EF of 45 to 49%, BPH s/p TURP presents with shortness of breath and found to be in rapid A-fib. Patient states in the last couple of days having short of breath. Has some cough. Denies any chest pain. No nausea. No abdominal pain. No headaches. No fevers. Micturating okay. With stool softeners bowels are moving okay. Has some swelling in the legs but son states they are better than before. States few days ago he had a pain in right leg on and off. Currently some pain in the left leg on and off. Received a dose of IV Lasix in the ER and a dose of iv Cardizem, IV Lopressor and dose of IV digoxin. When the heart rate is improved he is feeling better. Past medical history. As mentioned above past surgical history. Left heart catheterization. Colonoscopy biopsy. Colonoscopy. EGD. Appendectomy. Tonsillectomy. Bilateral cataracts. Inguinal hernia repair. S/p TURP on 12/03/2023 social history. . Quit smoking 1980s. Smoked 1 pack a day for 10 years. No alcohol use. No drug use. Family history. Mother had cirrhosis. Father had stroke. Brother has hypertension. Admission Exam Per Admitting Provider General- Not in acute distress Head- atraumatic Eyes- PERRL. ENT- oropharynx clear Neck- supple, no JVD. Lungs- clear to auscultation b/l wheezing heard, bibasilar crackles Heart- irregular rhythm; tachycardia no murmur, no gallop Abdomen- normal bowel sounds, soft, nontender, no distension. Extremities- b/l lower extremity edema present with chronic skin changes. No erythema seen Neuro- alert, oriented PERRL, no facial palsy; no dysarthria; moves extremities Principal Diagnosis Acute on chronic HFrEF, A fib with RVR Discharge Exam General: Lying in bed, not in distress, on room air HEENT: EOMI, BRYAN, MMM Chest: Fair breath sounds bilaterally CVS: Irregular, normal heart sounds Abdomen: Soft, non tender, not distended, normal bowel sounds Neuro: Awake, alert, oriented, conversing well, non focal Extremities: trace LE edema Discharge Data Allergies Allergy/AdvReac Type Severity Reaction Status Date / Time adhesive AdvReac Intermediate sensitive Verified 03/06/24 00:25 skin to strong adhesives Consultations 03/06/24 00:06 ED Decision to Admit Stat 03/06/24 08:00 Consult Cardiology Routine Ordered Studies 03/06/24 00:06 CT angio chest PE protocol Stat Laboratory Results WBC 11.11 K/ul (4.8-10.8) H 03/08/24 08:16 RBC 4.55 M/uL (4.70-6.10) L 03/08/24 08:16 Hgb 14.2 g/dl (14.0-18.0) 03/08/24 08:16 Hct 44.8 % (42.0-52.0) 03/08/24 08:16 MCV 98.5 fL (80.0-100.0) 03/08/24 08:16 MCH 31.2 pg (25.0-34.0) 03/08/24 08:16 MCHC 31.7 g/dL (32.0-36.0) L 03/08/24 08:16 RDW Std Deviation 60.0 fL (36.4-46.3) H 03/08/24 08:16 RDW Coeff of Shilpi 16.8 % (11.5-14.5) H 03/08/24 08:16 Plt Count 169 K/uL (130-400) 03/08/24 08:16 MPV 11.0 fL (9.4-12.4) 03/08/24 08:16 Immature Gran % (Auto) 0.4 % 03/06/24 06:01 Neut % (Auto) 67.4 % 03/06/24 06:01 Lymph % (Auto) 23.4 % 03/06/24 06:01 [place] % (Auto) 7.3 % 03/06/24 06:01 Eos % (Auto) 1.1 % 03/06/24 06:01 Baso % (Auto) 0.4 % 03/06/24 06:01 Neut # (Auto) 5.67 K/uL (1.40-6.50) 03/06/24 06:01 Lymph # (Auto) 1.96 K/uL (1.20-3.40) 03/06/24 06:01 [place] # (Auto) 0.61 K/uL (0.11-0.59) H 03/06/24 06:01 Eos # (Auto) 0.09 K/uL (0.00-0.50) 03/06/24 06:01 Baso # (Auto) 0.03 K/uL (0.00-0.20) 03/06/24 06:01 Immature Gran # (Auto) 0.03 K/uL (0.01-0.20) 03/06/24 06:01 Absolute Nucleated RBC 0.02 K/uL (0.00-0.12) 03/05/24 23:00 Nucleated RBC % (auto) 0.2 % 03/05/24 23:00 PT 19.4 Seconds (9.0-12.0) H 03/09/24 07:24 INR 1.9 (0.9-1.1) H 03/09/24 07:24 APTT 45 Seconds (21-31) H 03/05/24 23:00 PTT Ratio 1.7 03/05/24 23:00 Sodium 137 mmol/L (136-145) 03/09/24 07:24 Potassium 3.9 mmol/L (3.5-5.1) 03/09/24 07:24 Chloride 99 mmol/L (98-107) 03/09/24 07:24 Carbon Dioxide 26 mmol/L (21-32) 03/09/24 07:24 Anion Gap 12 (3-11) H 03/09/24 07:24 BUN 32 mg/dl (6-23) H 03/09/24 07:24 Creatinine 1.12 mg/dl (0.6-1.4) 03/09/24 07:24 Est Cr Clr Drug Dosing 64.6 ml/min 03/09/24 07:24 Est GFR ( Amer) 70.0 ml/min 03/09/24 07:24 Est GFR (Non-Af Amer) 60.4 ml/min 03/09/24 07:24 BUN/Creatinine Ratio 28.6 (10-20) H 07/24/24 07:24 Glucose 155 mg/dl (70-99(Fasting)) H 03/09/24 07:24 POC Glucose 217 mg/dl (70-99) H 03/09/24 11:19 Estimat Average Glucose 160 mg/dl 03/06/24 06:01 Hemoglobin A1c 7.2 % (4.5-5.6) H 03/06/24 06:01 Calcium 9.5 mg/dl (8.6-10.3) 03/09/24 07:24 Magnesium 2.2 mg/dl (1.7-2.4) 03/09/24 07:24 Total Bilirubin 0.8 mg/dl (0.2-1.0) 03/05/24 23:00 AST 18 U/L (13-39) 03/05/24 23:00 ALT 11 U/L (7-52) 03/05/24 23:00 Alkaline Phosphatase 68 U/L (34-104) 03/05/24 23:00 Troponin I High Sens 18.1 pg/ml (0-20) 03/06/24 12:11 B-Natriuretic Peptide 315 pg/ml (0-100) H 03/05/24 23:00 Total Protein 7.0 gm/dl (6.0-8.3) 03/05/24 23:00 Albumin 4.2 gm/dl (3.4-5.0) 03/05/24 23:00 Globulin 2.8 gm/dl (2.5-4.0) 03/05/24 23:00 Albumin/Globulin Ratio 1.5 (0.9-2) 03/05/24 23:00 Procalcitonin 0.15 ng/ml (0-0.5) 03/06/24 01:28 TSH 3.270 uIu/ml (0.300-4.500) 03/06/24 06:01 Urine Color Yellow 03/06/24 01:24 Urine Appearance Clear (Clear) 03/06/24 01:24 Urine pH 5.5 (4.5-7.5) 03/06/24 01:24 Ur Specific [place] 1.020 (1.000-1.030) 03/06/24 01:24 Urine Protein Negative (Negative) 03/06/24 01:24 Urine Glucose (UA) Negative (Negative) 03/06/24 01:24 Urine Ketones Negative (Negative) 03/06/24 01:24 Urine Blood Negative (Negative) 03/06/24 01:24 Urine Nitrite Negative (Negative) 03/06/24 01:24 Urine Bilirubin Negative (Negative) 03/06/24 01:24 Urine Urobilinogen Negative (Negative) 03/06/24 01:24 Ur Leukocyte Esterase Negative (Negative) 03/06/24 01:24 Digoxin 0.3 ng/ml (0.8-2.0) L 03/05/24 23:00 Adenovirus (PCR) Not Detected (NotDetected) 03/05/24 23:00 B. pertussis DNA (PCR) Not Detected (NotDetected) 03/05/24 23:00 B.parapertussis DNA PCR Not Detected (NotDetected) 03/05/24 23:00 C. pneumoniae DNA (PCR) Not Detected (NotDetected) 03/05/24 23:00 Coronavirus OC43 (PCR) Not Detected (NotDetected) 03/05/24 23:00 Coronavirus HKU1 (PCR) Not Detected (NotDetected) 03/05/24 23:00 Coronavirus 229E (PCR) Not Detected (NotDetected) 03/05/24 23:00 SARS-CoV-2 (PCR) Not Detected (NotDetected) 03/05/24 23:00 Coronavirus NL63 (PCR) Not Detected (NotDetected) 03/05/24 23:00 Human Metapneumovir PCR Not Detected (NotDetected) 03/05/24 23:00 Influenza Type A (PCR) Not Detected (NotDetected) 03/05/24 23:00 Influenza Type B (PCR) Not Detected (NotDetected) 03/05/24 23:00 M. pneumoniae (PCR) Not Detected (NotDetected) 03/05/24 23:00 Parainfluenza 1 (PCR) Not Detected (NotDetected) 03/05/24 23:00 Parainfluenza 2 (PCR) Not Detected (NotDetected) 03/05/24 23:00 Parainfluenza 3 (PCR) Not Detected (NotDetected) 03/05/24 23:00 Parainfluenza 4 (PCR) Not Detected (NotDetected) 03/05/24 23:00 RSV (PCR) Not Detected (NotDetected) 03/05/24 23:00 Entero/Rhino (PCR) Not Detected (NotDetected) 03/05/24 23:00 Impressions Chest X-Ray 03/05/24 22:50 XR chest 1V portable HISTORY: Dyspnea COMPARISON: Chest 06/27/2023. FINDINGS: No pneumothorax. The heart remains mildly enlarged. Small bilateral pleural effusions and patchy bibasilar densities have progressed. This progressive interstitial/vascular thickening consistent with mild pulmonary edema. No acute fractures. Calcifications within the aortic knob. IMPRESSION: 1. Cardiomegaly with mild interstitial pulmonary edema. This has progressed. 2. Small bilateral pleural effusions/densities have also progressed. ACT 112: Negative or not required by law. Electronically signed by: Andrew Mendoza M.D. 03/06/2024 7:59 AM Chest CTA 03/06/24 00:06 Exam(s): CTA CHEST IV Amt: 118 cc's optiray 320 EXAM: CT Angiography Chest With Intravenous Contrast CLINICAL HISTORY: Reason for exam: PE. TECHNIQUE: Axial computed tomographic angiography images of the chest with intravenous contrast. CTDI is 71.65 mGy and DLP is 1389.55 mGy-cm. Automated exposure control was utilized for the study. A dose lowering technique was utilized adhering to the principles of ALARA. MIP reconstructed images were created and reviewed. COMPARISON: No relevant prior studies available. FINDINGS: Pulmonary arteries: Unremarkable. No acute pulmonary embolism. Aorta: Atherosclerotic changes of the aorta. No thoracic aortic aneurysm. Lungs: See below. Pleural space: Small LEFT and moderate RIGHT pleural effusions. Subsegmental atelectasis at the lung bases. No pneumothorax. Heart: Cardiomegaly. No significant pericardial effusion. No evidence of RV dysfunction. Bones/joints: Degenerative changes of the spine. No acute fracture. No dislocation. Soft tissues: Unremarkable. Lymph nodes: Unremarkable. No enlarged lymph nodes. IMPRESSION: 1. No acute pulmonary embolism. 2. Small LEFT and moderate RIGHT pleural effusions. Subsegmental atelectasis at the lung bases. Electronically signed by: Wally Smith MD 03/06/24 01:17 AM Hospital Course (1) Rapid atrial fibrillation: 83-year-old male with past medical history significant for type 2 diabetes, hyperlipidemia, hypothyroidism, obstructive sleep apnea, permanent atrial fibrillation, hypertension, CAD, gout arthropathy, venous stasis dermatitis, secondary polycythemia, obesity, nonischemic cardiomyopathy with initial EF of 20% echo done in October 2023 showed EF of 45 to 49%, BPH s/p TURP who presented to the ED with shortness of breath and found to be in rapid A-fib and CHF exacerbation. Acute on chronic HFrEF with bilateral pleural effusion and hypoxia- CHF exacerbation likely due to dietary indiscretion- BNP 315, imaging with R>L pleural effusion, WRIGHT and hypoxic on 3 L NC, Now resolved and back to room air. Takes lasix 80 am and 40 pm. Seen by cardiology and recommendations noted - S/p iv lasix 80 bid with good diuresis and resolution of his symptoms. Now on room air. Labs stable. Euvolemic now. - Cardio cleared for discharge home on torsemide 40 mg am and 20 mg pm instead of his home lasix. Other medications the same. Salt and fluid restrictions. OP follow up with cardio in 1-2 weeks. - Echo with EF 45-50% with mild global hypokinesia of LV but no significant valvular disease - on GDMT with toprol, aldactone. PAF with RVR- improved, now rate controlled s/p IV Cardizem, IV Lopressor and IV digoxin. Continue home metoprolol succinate, digoxin. INR improving, at 1.9, will give extra 2.5 mg coumadin today to make total of 5 mg and recheck in am. Further management per his [facility] physician. DM-2- Continue home meds JOHN- not using CPAP for last 6 months. Recommended resuming. Hypothyroid- on sythroid Hypertension- on metoprolol succinate and diuretics GERD- on Protonix and famotidine BPH s/p TURP- on finasteride H/o gout- on allopurinol Total Time Total Time Spent Total Time Spent (In Minutes): 40 Discharge Plan Discharge Items Patient Disposition: Home - Self-Care Reason For Visit: RAPID A FIB, ACUTE CHF Discharge Diagnosis: Acute on chronic HFrEF, A fib with RVR Condition on Discharge: Fair Activity: Resume your previous activity Non-emergency contact: Primary Care Provider and [facility] Call non-emergency contact if: you have any medication questions, your symptoms worsen, your pain is not controlled and you have a fever Follow-up/Referrals: [place] [facility] [Primary Care Provider] - Diet: Carb Consistent or DM2 and Low Sodium (2gm) Fluids: 2000ml (8 cups) Addtl Attending Provider Instructions: Stop your lasix and instead start on torsemide 40 mg in the morning and 20 mg in the afternoon. Continue other medications as prescribed. Check INR tomorrow for further coumadin management. Repeat BMP in a week. Follow up with cardiology in 1-2 weeks. Pending Studies at Discharge: No Stand-Alone Forms: My [facility] [employer] [place], Smoking Cessation Medications and DC Order Prescriptions: New torsemide 20 mg tablet 20 mg PO UD Qty: 30 0RF Rx Instructions: 40 mg in the morning and 20 mg in the afternoon Continued pravastatin 40 mg tablet 40 mg PO HS metoprolol succinate 50 mg tablet extended release 24 hr See Rx Instructions .ROUTE .COMPLEX Patient Comments: 150 mg morning and 100 in the evening Rx Instructions: TAKES 150 MG QAM, THEN 100 MG QPM digoxin 250 mcg tablet 125 mcg PO 3XWK Rx Instructions: TAKE THIS MED EVERY MON/WED/FRI levothyroxine 88 mcg tablet 88 mcg PO QAM potassium chloride 20 mEq tablet,ER particles/crystals 20 meq PO QAM warfarin 5 mg tablet See Rx Instructions .ROUTE .COMPLEX Rx Instructions: TAKES 2.5 MG ON SUN, MON, WED, & FRI, THEN 5 MG ON , TH, & SAT. allopurinol 300 mg tablet 300 mg PO QAM colchicine 0.6 mg tablet 0.6 mg PO UD PRN (Reason: gout flare) Rx Instructions: only used when having a bowel prep alfuzosin 10 mg tablet extended release 24 hr 10 mg PO QPM Rx Instructions: TAKE THIS MEDICATION ONCE DAILY AFTER A MEAL multivitamin Tablet 1 tab PO QAM tramadol 50 mg Tablet 50 mg PO BID fluticasone propionate [Flonase Allergy Relief] 50 mcg/actuation [place],Suspension 2 spray INTRANASAL BID PRN (Reason: Nasal Congestion) cholecalciferol (vitamin D3) [Vitamin D3] 1,000 unit Tablet 2,000 units PO QAM spironolactone 25 mg tablet See Rx Instructions .ROUTE .COMPLEX Patient Comments: morning 25 mg and evening 12.5 mg. Rx Instructions: TAKES 25 MG QAM, THEN 12.5 MG QPM. metformin 500 mg tablet extended release 24 hr See Rx Instructions .ROUTE .COMPLEX Patient Comments: 500 in the morning and 1000 in the evening Rx Instructions: TAKES 500 MG QAM, THEN 1,000 MG QPM. triamcinolone acetonide 0.1 % Cream 1 applic TOPICAL BID PRN (Reason: Skin Irritation) Rx Instructions: APPLY TO RASH ON CHIN AND ARMS NEEDED. mupirocin 2 % ointment 1 applic TOPICAL BID PRN (Reason: Skin Irritation) Rx Instructions: APPLY TO GROIN AND FOLDS NEEDED. pantoprazole 40 mg tablet,delayed release (DR/EC) 40 mg PO QAM finasteride 5 mg tablet 5 mg PO QAM ondansetron HCl 4 mg Tablet 4 mg PO Q8H PRN (Reason: Nausea) calcium carbonate [Calcium Antacid] 400 mg calcium (1,000 mg) Tablet,Chewable 400 mg PO BID PRN (Reason: gerd) famotidine 20 mg Tablet 20 mg PO QAM mirtazapine 15 mg Tablet 15 mg PO HS acetaminophen 500 mg Capsule 1,000 mg PO Q6H PRN (Reason: Pain) Saline Mist 0.65 % Aerosol,[place] 1 spray INTRANASAL BID PRN (Reason: Dry Nasal Passages) lactulose 10 gram/15 mL Solution 10 g PO BID PRN (Reason: Constipation) naloxone 4 mg/actuation [place],Non-Aerosol 4 mg INTRANASAL UD PRN (Reason: overdose) aspirin 81 mg Tablet,Delayed Release (Dr/Ec) 81 mg PO QAM senna 8.6 mg capsule 8.6 mg PO BID PRN (Reason: constipation) Qty: 30 0RF polyethylene glycol 3350 [Miralax] 17 gram/dose Powder 17 g PO DAILY PRN (Reason: Constipation) albuterol sulfate 90 mcg/actuation Hfa Aerosol Inhaler 2 puff INHALATION QID PRN (Reason: Shortness Of Breath Or Wheezing) Discontinued furosemide [Lasix] 80 mg tablet See Rx Instructions .ROUTE .COMPLEX Rx Instructions: TAKES 80 MG QAM, THEN 40 MG QPM. Discharge Orders: Discharge Order (Routine); Ordered 03/09/24 Ordered By: Henri Romeo Discharge Order- [facility] (Routine); Ordered 03/09/24 Ordered By: Henri Taylor/Other Patient Handouts: Managing Type 2 Diabetes Admission Data Admit Date/Time: 03/06/24 02:19 Attending Provider: Henri Romeo Admit Provider: Celestino [place] Primary Care Provider: [facility] Other Providers: Celestino Birmingham; Jorden Leal
[2024-03-09] MEDS: WARFARIN SOD 2.5 MG TAB PO SCH (15:52)
[2024-03-09] MEDS ORDERED: WARFARIN SOD 5 MG TAB PO SCH (16:00)
--- NOTE | 2024-03-09 19:39 | Electrocardiogram Report ---
Test Reason : Blood Pressure : / mmHG Vent. Rate : 117 BPM Atrial Rate : 129 BPM P-R Int : 000 ms QRS Dur : 134 ms QT Int : 370 ms P-R-T Axes : 000 153 049 degrees QTc Int : 516 ms Poor data quality, interpretation may be adversely affected Atrial fibrillation with rapid ventricular response Left bundle branch block Abnormal ECG When compared with ECG of 08-MAR-2024 18:12, (unconfirmed) Left bundle branch block is now Present Confirmed by Sheng Aguillon ([id number]) on 03/09/2024 7:39:18 PM Referred By: REFERRED SELF Confirmed By:Sheng Aguillon
== END 2024-03-09 16:51 | disposition home or self-care (01) | DRG 291 ==
LOC: ED 22:37 → EDINP 03-06 02:19 → 2S 03-06 03:25

== ENCOUNTER 2024-05-04 10:34 | Inpatient (IN) ==
--- NOTE | 2024-05-04 11:59 | Emergency Department Note ---
Impression & Plan Dyspnea, Pulmonary edema, Hypoxia, Hyponatremia, Hyperglycemia ED Provider Note ED Provider Note NAME: DELANO ZHOU AGE:83 SEX: Male : 1940 ARRIVES VIA: private vehicle INFORMANT: Patient ED PROVIDER(s): Angelica Davey DO CHIEF COMPLAINT: Shortness of breath HPI: This is an 83-year-old male brought by family due to concern for shortness of breath, and hypoxia that they noted down to 89% when they checked his vital signs. Family states they go check on him every day, though he has been at [place] recently. They state a few days ago he began having increased runny nose and nasal congestion. They state he also has a slight cough occasionally productive of clear/yellow-tinged sputum. They state yesterday he appeared more short of breath and refused to wear his CPAP overnight. They state this morning he appeared more short of breath, complained of feeling short of breath, and oxygen levels were 89 to 90% on their pulse ox. No known illness at the facility where he currently resides. Family states over the course of the week he has had to stop several times when ambulating down for his meals which is unusual for him as well and he appeared short of breath with ambulation. He denies chest pain or pressure, abdominal pain, or worsening leg swelling. He does have chronic lower extremity edema. Family states this is similar to an episode several months ago where he was admitted and diagnosed with a lung infection. PAST MEDICAL HISTORY:See Below PAST SURGICAL HISTORY:See Below FAMILY HISTORY:See Below SOCIAL HISTORY:See Below HOME MEDICATIONS:See Below ALLERGIES:See Below VITALS:See Below PHYSICAL EXAMINATION: GENERAL: alert, well appearing, well nourished, no distress, non-toxic EYE EXAM: normal conjunctiva, PERRL and EOM's grossly intact OROPHARYNX: no exudate, no erythema, lips, buccal mucosa, and tongue normal and mucous membranes are moist NECK: supple, no nuchal rigidity, no adenopathy, non-tender LUNGS: Decreased bilaterally to auscultation. Normal chest wall mechanics, no w/r, bibasilar Rales HEART: no murmurs, S1 normal and S2 normal ABDOMEN: abdomen soft, non-tender, normo-active bowel sounds, no masses, no rebound or guarding. BACK: Back is symmetrical on inspection and there is no deformity, no midline tenderness, no CVA tenderness. SKIN: no rashes, petechiae, orbruising UPPER EXTREMITIES: upper extremities are grossly normal. FROM, nml pulses b/l. LOWER EXTREMITIES: 3+ b/l pitting edema. Patient's legs wrapped with compressive dressings which she states is usual. FROM, nml pulses b/l. NEURO EXAM: Normal sensorium, cranial nerves II-XII grossly intact, normal speech, no facial droop,nogross weakness of arms, no gross weakness of legs. Gross sensation intact. No ataxia. Vital Signs: reviewed and remarkable Differential Diagnosis: pneumonia, bronchitis, COPD/Asthma exacerbation, pneumothorax, pulmonary embolism, congestive heart failure, acute coronary syndrome, as well as others were considered MEDICAL DECISION MAKING: This is an 83-year-old male presents emergency room due to increased shortness of breath and hypoxia noted by family when they checked it at bedside at the facility where patient currently resides. Patient does not typically wear oxygen. Patient does have significant cardiac history including decreased EF and CHF. Patient denies missing or skipping any doses of his medications. He was afebrile vital signs stable on arrival. Labs drawn and sent, IV established, EKG and chest ray performed at bedside interpreted by me and patient monitored on telemetry. Patient and family updated on results. Nasal swab also obtained and sent due to other recent URI symptoms and was negative. While patient does take a daily diuretic, he appears to have worsening pulmonary edema. Additional IV Lasix added. After several family discussions at bedside regarding his presentation, history, risk of evolving congestive heart failure, patient and family in agreement with plan for additional inpatient evaluation and management. Case discussed with hospitalist team. Consultation(s): 1325: Discussed with Gretta Blum hospitalist team for additional evaluation and management. ER Treatment Provided: See below Diagnostics Interpreted By Me: -ECG: Atrial fibrillation at a rate of 104, rightward axis, prolonged intervals and appearance of left bundle branch block, nonspecific ST/T wave changes -Cardiac Monitoring: An order was placed for continuous cardiac monitoring. The monitor shows a rate of 98 with A-fib rhythm. -Laboratory studies: As stated above and show below. -Imaging studies: cxr: Cardiomegaly noted, bilateral pulmonary edema, no wide mediastinum, no focal consolidation Triage Nursing Note Reviewed Prior/Outside Records Reviewed -prior discharge summary from February 2024 reviewed Past Med/Surg History Problem List (Updated 05/04/24 @ 17:20 by Angelica Davey, DO) Hyperglycemia (Acute) Hyponatremia (Acute) Hypoxia (Acute) Pulmonary edema (Acute) Dyspnea (Acute) Nonischemic congestive cardiomyopathy Traumatic open wound of left lower leg (Acute) Chronic venous insufficiency (Chronic) Traumatic open wound of right lower leg (Acute) Lesion of bladder Blister of finger Gross hematuria Traumatic open wound of lower leg Stage III pressure ulcer of left elbow (Acute) Pressure ulcer of right buttock, stage 3 (Acute) Encounter for pre-operative examination Healing pressure ulcer stage III Hyponatremia (Acute) Acute UTI (urinary tract infection) (Acute) Adverse drug reaction (Acute) MASON (acute kidney injury) (Acute) Generalized weakness (Acute) Encephalopathy Acute hyponatremia (Acute) Urinary tract infection (Acute) Patella, chondromalacia Knee pain, chronic Encephalopathy LBBB (left bundle branch block) (Acute) Altered mental status (Acute) History of diabetic ulcer of foot BPH (benign prostatic hyperplasia) (Chronic) Gout (Chronic) HLD (hyperlipidemia) (Chronic) HTN (hypertension) (Chronic) Weakness (Acute) recent generalized muscle weakness; notes poor oral intake since 06/2023 Atrial fibrillation (Chronic) follows with [facility]; on coumadin Dyslipidemia (Chronic) Hypothyroidism (Chronic) History of adenomatous polyp of colon (Chronic) Diabetes mellitus, type 2 (Chronic) NIDDM History of basal cell carcinoma (Chronic) Systolic CHF, chronic (Chronic) Obstructive sleep apnea (Chronic) compliant with CPAP Coronary artery disease (Chronic) "nonocclusive disease per cardiac cath 2009" GERD (gastroesophageal reflux disease) (Chronic) Pulmonary nodule (Chronic) "6 mm RLL; incidental finding on CT abdomen 03/07/16" Diabetic peripheral neuropathy associated with type 2 diabetes mellitus Medical History Hematuria Secondary polycythemia Obesity Congestive cardiomyopathy Severe sepsis 2019 [facility] admission sepsis 2/2 cellulitis R leg Hyponatremia Cellulitis of right leg 2019 [facility] admission sepsis 2/2 cellulitis R leg UTI (urinary tract infection) most recent early 2023>no recent issues Surgical History History of esophagogastroduodenoscopy (EGD) Hx of colonoscopy Status post inguinal hernia repair Status post appendectomy Family History Other Hypertension Stroke Social History Smoking Status: Never smoker Second Hand Exposure: No; Do You Dip or Chew Tobacco: No; Tobacco Cessation Education Requested by Patient: No Hx Alcohol Use: No Hx Substance Use: No Preferred Language: Swedish Communication Ability: Effective Visual Impairment: Limited Hearing Ability: Use of Hearing Aid Tenoner Operator Required: No Beliefs That Will Affect Care: None marital status: Current Living Situation: Personal Care Facility Current Living Situation Comment: [employer] current occupational status: retired How many Children do You have: 6 Other Information That Helps Us Care for You: No Feels Safe at Home: No Is there a partner from a previous relationship who is making you feel unsafe now?: No Any Concerns about Your Family Situation: No Would You Like to Speak to Someone About Your Situation: No Safety Concerns: Feels Safe At This Time Diet: regular caffeine: No Physical Activity Frequency: Does not Exercise Seatbelt Use: always Assistive Devices: BiPap and Wheelchair Allergies Allergies Allergy/AdvReac Type Severity Reaction Status Date / Time adhesive AdvReac Intermediate sensitive Verified 03/06/24 00:25 skin to strong adhesives Home Meds Home Medications Medication Instructions Recorded Confirmed alfuzosin 10 mg tablet,extended 10 mg PO QPM 09/29/18 05/04/24 release 24 hr allopurinol 300 mg tablet 300 mg PO QAM 09/29/18 05/04/24 cholecalciferol (vitamin D3) 25 2,000 units PO QAM 09/29/18 05/04/24 mcg (1,000 unit) tablet (Vitamin D3) colchicine 0.6 mg tablet 0.6 mg PO UD PRN gout flare 09/29/18 05/04/24 digoxin 250 mcg (0.25 mg) tablet 125 mcg PO 3XWK 09/29/18 05/04/24 fluticasone propionate 50 2 spray intranasal BID PRN Nasal 09/29/18 05/04/24 mcg/actuation nasal Congestion spray,suspension (Flonase Allergy Relief) levothyroxine 88 mcg tablet 88 mcg PO QAM 09/29/18 05/04/24 metoprolol succinate 50 mg See Rx Instructions .Route .COMPLEX 09/29/18 05/04/24 tablet,extended release 24 hr multivitamin 1 tab PO QAM 09/29/18 05/04/24 potassium chloride 20 mEq 30 meq PO QAM 09/29/18 05/04/24 tablet,extended release(part/cryst) pravastatin 40 mg tablet 40 mg PO HS 09/29/18 05/04/24 tramadol 50 mg tablet 50 mg PO BID 09/29/18 05/04/24 warfarin 5 mg tablet See Rx Instructions .Route .COMPLEX 09/29/18 05/04/24 triamcinolone acetonide 0.1 % 1 applic topical BID PRN Skin 06/18/21 05/04/24 topical cream Irritation mupirocin 2 % topical ointment 1 applic topical BID PRN Skin 12/06/21 05/04/24 Irritation pantoprazole 40 mg tablet,delayed 40 mg PO QAM 08/15/23 05/04/24 release acetaminophen 500 mg capsule 1,000 mg PO Q6H PRN Pain 10/20/23 05/04/24 calcium carbonate (Calcium Antacid) 400 mg PO BID PRN gerd 10/20/23 05/04/24 famotidine 20 mg tablet 20 mg PO QAM 10/20/23 05/04/24 finasteride 5 mg tablet 5 mg PO QAM 10/20/23 05/04/24 lactulose 10 gram/15 mL oral 10 g PO BID PRN Constipation 10/20/23 05/04/24 solution mirtazapine 15 mg tablet 15 mg PO HS 10/20/23 05/04/24 naloxone 4 mg/actuation nasal spray 4 mg intranasal UD PRN overdose 10/20/23 05/04/24 ondansetron HCl 4 mg tablet 4 mg PO Q8H PRN Nausea 10/20/23 05/04/24 sodium chloride 0.65 % nasal spray 1 spray intranasal BID PRN Dry 10/20/23 05/04/24 aerosol (Saline Mist) Nasal Passages aspirin 81 mg tablet,delayed 81 mg PO QAM 10/21/23 05/04/24 release polyethylene glycol 3350 17 17 g PO DAILY PRN Constipation 11/20/23 05/04/24 gram/dose oral powder (Miralax) metformin 500 mg tablet,extended See Rx Instructions .Route .COMPLEX 01/01/24 05/04/24 release 24 hr spironolactone 25 mg tablet 25 mg PO BID 01/01/24 05/04/24 albuterol sulfate 90 mcg/actuation 2 puff inhalation QID PRN 03/06/24 05/04/24 aerosol inhaler Shortness Of Breath Or Wheezing torsemide 20 mg tablet 100 mg PO DAILY 05/04/24 05/04/24 Previous Rx's Medication Instructions Recorded sennosides 8.6 mg capsule (senna) 8.6 mg PO BID PRN constipation #30 10/21/23 caps Results & Data (ED) Vital Signs Vital Signs - 24 hr 05/04/24 10:44 05/04/24 11:02 05/04/24 11:04 Temperature 36.8 C Temperature Source Temporal Artery Scan Pulse Rate 92 H 96 H Pulse Rate from SpO2 Sensor Respiratory Rate 20 Respiratory Effort / Characteristics Non-Labored Spontaneous SOB on Exertion Non-Labored Spontaneous Respiratory Depth Normal Normal Respiratory Pattern Regular Regular Blood Pressure 117/82 Blood Pressure Mean 93 Pulse Oximetry 93 Oxygen Delivery Method Room Air Sepsis Recent Fever Within 48 Hours No Sepsis New/Unexplained Change in Mental Status No Sepsis Action Taken by Nursing No Action Required 05/04/24 11:04 05/04/24 11:30 05/04/24 11:30 Temperature Temperature Source Pulse Rate 104 H 93 H Pulse Rate from SpO2 Sensor Respiratory Rate 20 20 Respiratory Effort / Characteristics Respiratory Depth Respiratory Pattern Blood Pressure 113/80 112/80 112/80 Blood Pressure Mean 85 90 84 Pulse Oximetry 92 90 Oxygen Delivery Method Room Air Room Air Sepsis Recent Fever Within 48 Hours Sepsis New/Unexplained Change in Mental Status Sepsis Action Taken by Nursing 05/04/24 12:00 05/04/24 12:30 05/04/24 13:01 Temperature Temperature Source Pulse Rate 89 94 H 91 H Pulse Rate from SpO2 Sensor Respiratory Rate 20 20 20 Respiratory Effort / Characteristics Respiratory Depth Respiratory Pattern Blood Pressure 126/83 122/87 130/58 L Blood Pressure Mean 98 93 69 Pulse Oximetry 91 92 95 Oxygen Delivery Method Room Air Room Air Room Air Sepsis Recent Fever Within 48 Hours Sepsis New/Unexplained Change in Mental Status Sepsis Action Taken by Nursing 05/04/24 13:09 05/04/24 14:00 Temperature Temperature Source Pulse Rate 98 H 95 H Pulse Rate from SpO2 Sensor 88 Respiratory Rate 22 20 Respiratory Effort / Characteristics Respiratory Depth Respiratory Pattern Blood Pressure 104/86 Blood Pressure Mean 91 Pulse Oximetry 90 94 Oxygen Delivery Method Room Air Sepsis Recent Fever Within 48 Hours Sepsis New/Unexplained Change in Mental Status Sepsis Action Taken by Nursing Laboratory Data 05/04/24 11:03 05/04/24 11:03 Lab Results 05/04/24 05/04/24 05/04/24 Range/Units 11:03 11:46 11:52 WBC 13.18 H (4.8-10.8) K/ul RBC 4.70 (4.70-6.10) M/uL Hgb 13.9 L (14.0-18.0) g/dl Hct 43.6 (42.0-52.0) % MCV 92.8 (80.0-100.0) fL MCH 29.6 (25.0-34.0) pg MCHC 31.9 L (32.0-36.0) g/dL RDW Std Deviation 59.4 H (36.4-46.3) fL RDW Coeff of Shilpi 17.7 H (11.5-14.5) % Plt Count 192 (130-400) K/uL MPV 11.5 (9.4-12.4) fL Immature Gran % (Auto) 0.5 % Neut % (Auto) 72.1 % Lymph % (Auto) 16.2 % [place] % (Auto) 10.6 % Eos % (Auto) 0.2 % Baso % (Auto) 0.4 % Neut # (Auto) 9.52 H (1.40-6.50) K/uL Lymph # (Auto) 2.13 (1.20-3.40) K/uL [place] # (Auto) 1.40 H (0.11-0.59) K/uL Eos # (Auto) 0.02 (0.00-0.50) K/uL Baso # (Auto) 0.05 (0.00-0.20) K/uL Immature Gran # (Auto) 0.06 (0.01-0.20) K/uL PT 19.3 H (9.0-12.0) Seconds INR 1.9 H (0.9-1.1) VBG pH 7.43 H (7.36-7.41) VBG pCO2 41 (38-50) mmHg VBG pO2 36 mmHg VBG HCO3 27 mmol/L VBG O2 Saturation 60.4 % VBG Base Excess 2.6 mEq/L Sodium 133 L (136-145) mmol/L Potassium 4.7 (3.5-5.1) mmol/L Chloride 96 L (98-107) mmol/L Carbon Dioxide 25 (21-32) mmol/L Anion Gap 12 H (3-11) BUN 52 H (6-23) mg/dl Creatinine 1.55 H (0.6-1.4) mg/dl Est Cr Clr Drug Dosing Not Reportable Est GFR ( Amer) 47.3 ml/min Est GFR (Non-Af Amer) 40.8 ml/min BUN/Creatinine Ratio 33.5 H (10-20) Glucose 208 H (70-99(Fasting)) mg/dl Calcium 9.4 (8.6-10.3) mg/dl Magnesium 2.6 H (1.7-2.4) mg/dl Total Bilirubin 1.1 H (0.2-1.0) mg/dl AST 16 (13-39) U/L ALT 12 (7-52) U/L Alkaline Phosphatase 84 (34-104) U/L Troponin I High Sens 8.7 (0-20) pg/ml B-Natriuretic Peptide 393 H (0-100) pg/ml Total Protein 7.5 (6.0-8.3) gm/dl Albumin 4.5 (3.4-5.0) gm/dl Globulin 3.0 (2.5-4.0) gm/dl Albumin/Globulin Ratio 1.5 (0.9-2) Lipase 24 (11-82) U/L TSH 2.244 (0.300-4.500) uIu/ml Adenovirus (PCR) Not Detected (NotDetected) B. pertussis DNA (PCR) Not Detected (NotDetected) B.parapertussis DNA PCR Not Detected (NotDetected) C. pneumoniae DNA (PCR) Not Detected (NotDetected) Coronavirus OC43 (PCR) Not Detected (NotDetected) Coronavirus HKU1 (PCR) Not Detected (NotDetected) Coronavirus 229E (PCR) Not Detected (NotDetected) SARS-CoV-2 (PCR) Not Detected (NotDetected) Coronavirus NL63 (PCR) Not Detected (NotDetected) Human Metapneumovir PCR Not Detected (NotDetected) Influenza Type A (PCR) Not Detected (NotDetected) Influenza Type B (PCR) Not Detected (NotDetected) M. pneumoniae (PCR) Not Detected (NotDetected) Parainfluenza 1 (PCR) Not Detected (NotDetected) Parainfluenza 2 (PCR) Not Detected (NotDetected) Parainfluenza 3 (PCR) Not Detected (NotDetected) Parainfluenza 4 (PCR) Not Detected (NotDetected) RSV (PCR) Not Detected (NotDetected) Entero/Rhino (PCR) Not Detected (NotDetected) Administered Medications Discontinued Medications Furosemide (Furosemide 40 Mg/4 Ml Vial) 40 mg IV ONE ONE Stop: 05/04/24 12:37 Last Admin: 05/04/24 13:47 Dose: 40 mg Documented By: SK[facility] Imaging Data Radiologist's Impression: Chest X-Ray 05/04/24 11:38 XR chest 1V portable CLINICAL HISTORY: Shortness of breath. COMPARISON STUDY: Chest radiograph March 05, 2024. FINDINGS: There is no pneumothorax. Small bilateral pleural effusions are present with hazy bibasilar opacities. There is cardiomegaly with moderate interstitial pulmonary edema. Slight progression since prior exam. IMPRESSION: Cardiomegaly with moderate interstitial pulmonary edema with small bilateral pleural effusions and associated bibasilar opacities. ACT 112: Negative or not required by law. Electronically signed by: Victor Hugo Fallon M.D. 05/04/2024 12:08 PM Discharge Plan Visit Data Chief Complaint: Shortness of Breath/Dyspnea Stated Complaint: 89 O2 LVLS, WHEEZING, CONFUSION ED Provider: Angelica Davey Discharge Problem: Dyspnea, Pulmonary edema, Hypoxia, Hyponatremia, Hyperglycemia Patient Disposition: Admitted As Inpatient Discharge Instructions Interventions: ED Discharge Assessment Last Done: 05/04/24 15:54
[2024-05-04 12:09] LABS: Base Excess VBG 2.6 mEq/L; HCO3 VBG 27 mmol/L; Oxygen Saturation VBG 60.4 %; PCO2 VBG 41 mmHg (38-50); PO2 VBG 36 mmHg; pH VBG 7.43 (7.36-7.41)
--- NOTE | 2024-05-04 12:09 | XRay Report ---
XR chest 1V portable CLINICAL HISTORY: Shortness of breath. COMPARISON STUDY: Chest radiograph March 05, 2024. FINDINGS: There is no pneumothorax. Small bilateral pleural effusions are present with hazy bibasilar opacities. There is cardiomegaly with moderate interstitial pulmonary edema. Slight progression sinc e prior exam. IMPRESSION: Cardiomegaly with moderate interstitial pulmonary edema with small bilateral pleural eff usions and associated bibasilar opacities. ACT 112: Negative or not required by law. Electronically signed by: Victor Hugo Fallon M.D. 05/04/2024 12:08 PM
[2024-05-04 12:22] LABS: Basophils # (auto) 0.05 K/uL (0.00-0.20); Basophils % (auto) 0.4 %; Eosinophils # (auto) 0.02 K/uL (0.00-0.50); Eosinophils % (auto) 0.2 %; Hematocrit (blood only) 43.6 % (42.0-52.0); Hemoglobin 13.9 g/dl (14.0-18.0); Immature Granulocytes # (auto) 0.06 K/uL (0.01-0.20); Immature Granulocytes % (auto) 0.5 %; Lymphocytes # (auto) 2.13 K/uL (1.20-3.40); Lymphocytes % (auto) 16.2 %; Mean Corpuscular Hemoglobin 29.6 pg (25.0-34.0); Mean Corpuscular Hgb Conc 31.9 g/dL (32.0-36.0); Mean Corpuscular Volume 92.8 fL (80.0-100.0); Mean Platelet Volume 11.5 fL (9.4-12.4); Monocytes % (auto) 10.6 %; Neutrophils # (auto) 9.52 K/uL (1.40-6.50); Neutrophils % (auto) 72.1 %; Platelet Count 192 K/uL (130-400); RDW Coefficient of Variation 17.7 % (11.5-14.5); RDW Standard Deviation 59.4 fL (36.4-46.3); White Blood Count 13.18 K/ul (4.8-10.8)
[2024-05-04 12:25] LABS: Alanine Aminotransferase 12 U/L (7-52); Albumin Globulin Ratio 1.5 (0.9-2); Albumin Level 4.5 gm/dl (3.4-5.0); Alkaline Phosphatase 84 U/L (34-104); Anion Gap 12 (3-11); Aspartate Aminotransferase 16 U/L (13-39); BUN Creatinine Ratio 33.5 (10-20); Bilirubin,Total 1.1 mg/dl (0.2-1.0); Blood Urea Nitrogen 52 mg/dl (6-23); Calcium 9.4 mg/dl (8.6-10.3); Carbon Dioxide 25 mmol/L (21-32); Chloride 96 mmol/L (98-107); Est GFR (African American) 47.3 ml/min; Est GFR (Non-African American) 40.8 ml/min; Glucose 208 mg/dl (70-99(Fasting)); Lipase 24 U/L (11-82); Magnesium 2.6 mg/dl (1.7-2.4); Potassium 4.7 mmol/L (3.5-5.1); Sodium 133 mmol/L (136-145); Total Protein 7.5 gm/dl (6.0-8.3)
[2024-05-04 12:31] LABS: Troponin I High Sensitivity 8.7 pg/ml (0-20)
[2024-05-04 12:33] LABS: INR 1.9 (0.9-1.1); Prothrombin Time 19.3 Seconds (9.0-12.0)
[2024-05-04 12:40] LABS: Thyroid Stimulating Hormone 2.244 uIu/ml (0.300-4.500)
[2024-05-04 13:00] LABS: Adenovirus PCR Not Detected (NotDetected); Bordetella parapertussis PCR Not Detected (NotDetected); Bordetella pertussis PCR Not Detected (NotDetected); Chlamydia pneumoniae PCR Not Detected (NotDetected); Coronavirus 229E PCR Not Detected (NotDetected); Coronavirus CoV-2 (COVID19)PCR Not Detected (NotDetected); Coronavirus HKU1 PCR Not Detected (NotDetected); Coronavirus NL63 PCR Not Detected (NotDetected); Coronavirus OC43PCR Not Detected (NotDetected); Human Metapneumovirus PCR Not Detected (NotDetected); Influenza A PCR Not Detected (NotDetected); Influenza B PCR Not Detected (NotDetected); Mycoplasma pneumoniae PCR Not Detected (NotDetected); Parainfluenza Virus 1 PCR Not Detected (NotDetected); Parainfluenza Virus 2 PCR Not Detected (NotDetected); Parainfluenza Virus 3 PCR Not Detected (NotDetected); Parainfluenza Virus 4 PCR Not Detected (NotDetected); Respiratory Syncytial VirusPCR Not Detected (NotDetected); Rhinovirus/Enterovirus PCR Not Detected (NotDetected)
--- NOTE | 2024-05-04 13:41 | History & Physical Report ---
Date of Service May 04, 2024 Assessment & Plan (1) Hypoxia: (2) Pulmonary edema: (3) HTN (hypertension): (4) HLD (hyperlipidemia): (5) Atrial fibrillation: (6) Hypothyroidism: (7) Diabetes mellitus, type 2: Plan: Mr. Bone is an 83 y/o M presents to the ED from [facility] with worsening SOB and hypoxia (down to 88%) that has been occurring over the last week. Pt does not wear O2 at baseline. Patient is a resident of [facility] and is Ell [place] for the last 6 months. His family visits him on a daily basis and noted that as he was ambulating with his walker to the dining young over this past week that he became more short of breath and required pauses to catch his breath while he was walking. They reported that he became tachypneic and had decreased saturations down to 88%. He denies orthopnea and reports sleeping in a recliner. His baseline weight is around 250 pounds. Noted weight gain of 4 to 5 pounds over the last week. Patient takes torsemide and dosing was increased on 04/20 from 20 mg daily to 100 mg daily. Aldactone dosing was changed to 25 mg twice daily as well from 25 mg in AM and 12.5 mg in PM. Patient was recently admitted to [facility] 03/06 to 03/09 for A-fib with RVR and acute on chronic exacerbation of HFrEF. Additional past medical history includes A-fib, HFrEF, ind-kxwgarf-gjybeokzq diabetes, hypothyroidism, and BPH. Patient will be admitted for further evaluation and management of his acute on chronic HFrEF with fluid restriction, strict I/O , IV Lasix and chest CT to rule out infectious causes, urinalysis and cardiology consultation. Acute on Chronic HFrEF: Hypoxia: Pulmonary edema: Acute Leukocytosis 13.18, BNP 393 Troponin negative Bio fire negative; pt is congested VBG pH 7.43, CO2 41, HCO3 27 CXR: Cardiomegaly with moderate interstitial pulmonary edema with small bilateral pleural effusions and associated bibasilar opacities Takes torsemide 7: Dose recently increased from 20 mg to 100 mg on 04/20 by cardiology Takes Aldactone 25 mg twice daily; continue Lasix 40 mg IV given in ED; hold on additional Lasix at this time and reassess in AM. Chest CT ordered ECHO: Most recent ECHO from 03/06/24: EF 45-50% which is improved from previous ECHO 10/25: EF45-49%, with Mild MR/TR Fluid restriction 1800mL, I/O; patient wants to use a urinal; receptive to [facility] if needed. Cardiology consultation placed AF: HTN: Chronic Takes Metoprolol, Digoxin and Coumadin; continue INR 1.9; family reports INR 1/9 last OPT check. Chest CTA ordered; r/o clot or infectious cause of leukocytosis. Check INR in AM HLD: Chronic Takes pravastatin; continue Hypothryoidism: Chronic takes levothyroxine;continue TSH today 2.244 DM2: Chronic Takes metformin; hold while inpatient and placed on SSI ACHS Most recent A1C 02/2024 7.2 BPH: Chronic Takes finasteride; continue Follows with [facility] Disposition: PCP: Dr. Scherer Code Status: VTE Prophylaxis: On Coumadin I spent a total of 82 minutes coordinating, documenting, and providing care for this patient excluding time spent in the performance of separately billed services. All of the aforementioned completed while collaborating with the assigned attending physician for a full treatment plan. Please see their addendum for further details. Admission and Anticipated Discharge Date Admission Date: Admission 05/04/24 and anticipate LOS 1-3 days History of Present Illness Chief Complaint: SOB Primary Care Provider: [facility] Mr. Bone is an 83 year old male that presents to the ED from [facility] with worsening shortness of breath and hypoxia that has been occurring over the last week. Patient is a resident of [facility] and is [place] for the last 6 months. His family visits him on a daily basis and noted that as he was ambulating with his walker to the dining young over this past week that he became more short of breath and required pauses to catch his breath while he was walking. They reported that he became tachypneic and had decreased saturations down to 88%. He denies orthopnea and reports sleeping in a recliner. His baseline weight is around 250 pounds. Noted weight gain of 4 to 5 pounds over the last week. Patient takes torsemide and dosing was increased on 04/20 from 20 mg daily to 100 mg daily. Aldactone dosing was changed to 25 mg twice daily as well from 25 mg in AM and 12.5 mg in PM. Patient was recently admitted to [facility] 03/06 to 03/09 for A-fib with RVR and acute on chronic exacerbation of HFrEF. Additional past medical history includes A-fib, HFrEF, xxb-uausksk-dvygdqkvc diabetes, hypothyroidism, and BPH. Currently patient denies headache, dizziness, visual or auditory changes, chest pain, shortness of breath at rest. Patient denies nausea, vomiting, diarrhea, recent falls or trauma. On examination patient is sitting in bedside chair in no apparent distress and able to speak in complete sentences. Patient is not requiring any supplemental oxygen at this time. Bibasilar crackles noted in posterior lungs on auscultation. Bilateral +4 lower extremity edema. Legs are wrapped. Patient will be admitted for further evaluation and management of his acute on chronic HFrEF with fluid restriction, strict I/O , IV Lasix and chest CT to rule out infectious causes, urinalysis and cardiology consultation. Please see A/P for further details. Allergies Allergy/AdvReac Type Severity Reaction Status Date / Time adhesive AdvReac Intermediate sensitive Verified 03/06/24 00:25 skin to strong adhesives Home Medications Medication Instructions Recorded Confirmed Type alfuzosin 10 mg tablet,extended 10 mg PO QPM 09/29/18 05/04/24 History release 24 hr allopurinol 300 mg tablet 300 mg PO QAM 09/29/18 05/04/24 History cholecalciferol (vitamin D3) 25 2,000 units PO QAM 09/29/18 05/04/24 History mcg (1,000 unit) tablet (Vitamin D3) colchicine 0.6 mg tablet 0.6 mg PO UD PRN gout flare 09/29/18 05/04/24 History digoxin 250 mcg (0.25 mg) tablet 125 mcg PO 3XWK 09/29/18 05/04/24 History fluticasone propionate 50 2 spray intranasal BID PRN Nasal 09/29/18 05/04/24 History mcg/actuation nasal Congestion spray,suspension (Flonase Allergy Relief) levothyroxine 88 mcg tablet 88 mcg PO QAM 09/29/18 05/04/24 History metoprolol succinate 50 mg See Rx Instructions .Route .COMPLEX 09/29/18 05/04/24 History tablet,extended release 24 hr multivitamin 1 tab PO QAM 09/29/18 05/04/24 History potassium chloride 20 mEq 30 meq PO QAM 09/29/18 05/04/24 History tablet,extended release(part/cryst) pravastatin 40 mg tablet 40 mg PO HS 09/29/18 05/04/24 History tramadol 50 mg tablet 50 mg PO BID 09/29/18 05/04/24 History warfarin 5 mg tablet See Rx Instructions .Route .COMPLEX 09/29/18 05/04/24 History triamcinolone acetonide 0.1 % 1 applic topical BID PRN Skin 06/18/21 05/04/24 History topical cream Irritation mupirocin 2 % topical ointment 1 applic topical BID PRN Skin 12/06/21 05/04/24 History Irritation pantoprazole 40 mg tablet,delayed 40 mg PO QAM 08/15/23 05/04/24 History release acetaminophen 500 mg capsule 1,000 mg PO Q6H PRN Pain 10/20/23 05/04/24 History calcium carbonate (Calcium Antacid) 400 mg PO BID PRN gerd 10/20/23 05/04/24 History famotidine 20 mg tablet 20 mg PO QAM 10/20/23 05/04/24 History finasteride 5 mg tablet 5 mg PO QAM 10/20/23 05/04/24 History lactulose 10 gram/15 mL oral 10 g PO BID PRN Constipation 10/20/23 05/04/24 History solution mirtazapine 15 mg tablet 15 mg PO HS 10/20/23 05/04/24 History naloxone 4 mg/actuation nasal spray 4 mg intranasal UD PRN overdose 10/20/23 05/04/24 History ondansetron HCl 4 mg tablet 4 mg PO Q8H PRN Nausea 10/20/23 05/04/24 History sodium chloride 0.65 % nasal spray 1 spray intranasal BID PRN Dry 10/20/23 05/04/24 History aerosol (Saline Mist) Nasal Passages aspirin 81 mg tablet,delayed 81 mg PO QAM 10/21/23 05/04/24 History release sennosides 8.6 mg capsule (senna) 8.6 mg PO BID PRN constipation #30 10/21/23 05/04/24 Rx caps polyethylene glycol 3350 17 17 g PO DAILY PRN Constipation 11/20/23 05/04/24 History gram/dose oral powder (Miralax) metformin 500 mg tablet,extended See Rx Instructions .Route .COMPLEX 01/01/24 05/04/24 History release 24 hr spironolactone 25 mg tablet 25 mg PO BID 01/01/24 05/04/24 History albuterol sulfate 90 mcg/actuation 2 puff inhalation QID PRN 03/06/24 05/04/24 History aerosol inhaler Shortness Of Breath Or Wheezing torsemide 20 mg tablet 100 mg PO DAILY 05/04/24 05/04/24 History Past Med/Surg History Problem List Hypoxia (Acute) Pulmonary edema (Acute) Dyspnea (Acute) Nonischemic congestive cardiomyopathy Traumatic open wound of left lower leg (Acute) Chronic venous insufficiency (Chronic) Traumatic open wound of right lower leg (Acute) Lesion of bladder Blister of finger Gross hematuria Traumatic open wound of lower leg Stage III pressure ulcer of left elbow (Acute) Pressure ulcer of right buttock, stage 3 (Acute) Encounter for pre-operative examination Healing pressure ulcer stage III Hyponatremia (Acute) Acute UTI (urinary tract infection) (Acute) Adverse drug reaction (Acute) MASON (acute kidney injury) (Acute) Generalized weakness (Acute) Encephalopathy Acute hyponatremia (Acute) Urinary tract infection (Acute) Patella, chondromalacia Knee pain, chronic Encephalopathy LBBB (left bundle branch block) (Acute) Altered mental status (Acute) History of diabetic ulcer of foot BPH (benign prostatic hyperplasia) (Chronic) Gout (Chronic) HLD (hyperlipidemia) (Chronic) HTN (hypertension) (Chronic) Weakness (Acute) recent generalized muscle weakness; notes poor oral intake since 06/2023 Atrial fibrillation (Chronic) follows with [facility]; on coumadin Dyslipidemia (Chronic) Hypothyroidism (Chronic) History of adenomatous polyp of colon (Chronic) Diabetes mellitus, type 2 (Chronic) NIDDM History of basal cell carcinoma (Chronic) Systolic CHF, chronic (Chronic) Obstructive sleep apnea (Chronic) compliant with CPAP Coronary artery disease (Chronic) "nonocclusive disease per cardiac cath 2009" GERD (gastroesophageal reflux disease) (Chronic) Pulmonary nodule (Chronic) "6 mm RLL; incidental finding on CT abdomen 03/07/16" Diabetic peripheral neuropathy associated with type 2 diabetes mellitus Medical History Hematuria Secondary polycythemia Obesity Congestive cardiomyopathy Severe sepsis 2019 [facility] admission sepsis 2/2 cellulitis R leg Hyponatremia Cellulitis of right leg 2019 [facility] admission sepsis 2/2 cellulitis R leg UTI (urinary tract infection) most recent early 2023>no recent issues Surgical History History of esophagogastroduodenoscopy (EGD) Hx of colonoscopy Status post inguinal hernia repair Status post appendectomy Family History Other Hypertension Stroke Social History Smoking Status: Never smoker Second Hand Exposure: No; Do You Dip or Chew Tobacco: No; Tobacco Cessation Education Requested by Patient: No Hx Alcohol Use: No Hx Substance Use: No Preferred Language: Burkinan Communication Ability: Effective Visual Impairment: Limited Hearing Ability: Use of Hearing Aid Oral And Maxillofacial Surgery Required: No Beliefs That Will Affect Care: None marital status: Current Living Situation: Personal Care Facility Current Living Situation Comment: [facility] current occupational status: retired How many Children do You have: 6 Other Information That Helps Us Care for You: No Feels Safe at Home: No Is there a partner from a previous relationship who is making you feel unsafe now?: No Any Concerns about Your Family Situation: No Would You Like to Speak to Someone About Your Situation: No Safety Concerns: Feels Safe At This Time Diet: regular caffeine: No Physical Activity Frequency: Does not Exercise Seatbelt Use: always Assistive Devices: BiPap and Wheelchair Review of Systems Review of Systems: Neuro: (-) Falls, trauma, slurred speech HEENT: (-) CORTES, dizziness, dysphagia, visual or auditory changes CV: (-) CP, palpitations, swelling Resp: (+) SOB with exertion (-) SOB at rest GI: (-) appetite changes, N/V/D, bowel changes : (-) urinary changes Skin: (-) rashes Psych: (-) anxiety, depression Physical Exam Physical Exam: Neuro: AAOx4, PERRLA, no aphagia, memory changes, CNII-XII grossly intact HEENT: head normocephalic, moist mucus membranes CV: S1/S2, (-) M/G/R, cap refill < 3 seconds (+) B/L LE edema +4. Legs wrapped. Resp:On RA. Bibasilar crackles in posterior bases. GI: Abdomen S/NT/ND, Ax4 bowel sounds, (-) CVA tenderness Musculoskeletal: 5/5 B/L UE strength, 5/5 B/L LE strength. No gait disturbance Skin: (-) rashes , (-) erythema. Psych: euthymic mood Results & Data Results & Data Vital Signs (Past 12 Hours) Vital Signs Temp Pulse Resp BP Pulse Ox O2 Del Method 05/04/24 13:01 91 H 20 130/58 L 95 Room Air 05/04/24 12:30 94 H 20 122/87 92 Room Air 05/04/24 12:00 89 20 126/83 91 Room Air 05/04/24 11:30 93 H 20 112/80 90 Room Air 05/04/24 11:30 104 H 20 112/80 92 Room Air 05/04/24 11:04 113/80 05/04/24 11:04 96 H 05/04/24 10:44 36.8 C 92 H 20 117/82 93 Room Air Laboratory Results Short CBC 05/04/24 Range/Units 11:03 WBC 13.18 H (4.8-10.8) K/ul Hgb 13.9 L (14.0-18.0) g/dl Hct 43.6 (42.0-52.0) % Plt Count 192 (130-400) K/uL BMP 05/04/24 11:03 Sodium 133 L Potassium 4.7 Chloride 96 L Carbon Dioxide 25 BUN 52 H Creatinine 1.55 H Glucose 208 H Calcium 9.4 Liver Function 05/04/24 Range/Units 11:03 Total Bilirubin 1.1 H (0.2-1.0) mg/dl AST 16 (13-39) U/L ALT 12 (7-52) U/L Alkaline Phosphatase 84 (34-104) U/L Albumin 4.5 (3.4-5.0) gm/dl Diagnostic Findings Chest X-Ray 05/04/24 11:38 XR chest 1V portable CLINICAL HISTORY: Shortness of breath. COMPARISON STUDY: Chest radiograph March 05, 2024. FINDINGS: There is no pneumothorax. Small bilateral pleural effusions are present with hazy bibasilar opacities. There is cardiomegaly with moderate interstitial pulmonary edema. Slight progression since prior exam. IMPRESSION: Cardiomegaly with moderate interstitial pulmonary edema with small bilateral pleural effusions and associated bibasilar opacities. ACT 112: Negative or not required by law. Electronically signed by: Victor Hugo Fallon M.D. 05/04/2024 12:08 PM Code Status & VTE Plan Code Status Full Code in the event of cardiac or respiratory arrest VTE Prophylaxis Plan VTE Prophylaxis will be ordered: Yes Supervising Physician Co-Signing Physician Notes Pt was seen and examined by myself, Dianna Victor MD on the day of service. Care was coordinated with DENG Barnhart. 83yoM with PMHx significant for atrial fibrillation and CHF on torsemide and spironolactone at home presenting with increasing SOB at rest and with exertion. Per pt and family in the room, symptoms have been worsening for the past week. Also noted hypoxia to the 80s at home. Pt denies any associated cough, congestion. On exam, alert and oriented Irregular HR Breath sounds decreased bilaterally Lower extremities with noted edema and discoloration bilaterally WBC of 13K EKG with noted a fib with RVR BNP elevated at 393 Chest XRAY noting concern for pulm edema and small bilat pleural effusions CT chest noting moderate right pleural effusion Respiratory panel negative UA pending 83yoM presenting with acute hypoxic respiratory failure in the setting of acute on chronic CHF and atrial fibrillation. Acute hypoxic respiratory failure- does not use oxygen at home, oxygen supplementation as needed. Does not appear to be related to an infectious cause. Likely in setting of CHF exacerbation and a fib RVR. Acute on chronic CHF- Chest imaging concerning for moderate R pleural effusion. Hold home po torsemide and spironolactone, Continue with IV Lasix 40mg daily scheduled (monitor BP, has been trending on the lower end, consider IV Lasix increase to BID dosing if BP improves) and pulmonology consult for possible thoracentesis. Hold warfarin today, INR currently 1.9 with anticipation for further drop for possible procedure. Cardiology consulted as well. Atrial Fibrillation with RVR- HR appears to be improving with diuresis. Continue home digoxin and home metoprolol, prn IV Lopressor for persistent HR elevation >110. Cardiology consulted, appreciate further recs. Otherwise as above. I spent a total [id number] coordinating, documenting, and providing care for this patient excluding time spent in the performance of separately billed services
[2024-05-04] MEDS: FUROSEMIDE 40 MG/4 ML VIAL IV ONE ×2 (13:47→17:25)
--- NOTE | 2024-05-04 16:09 | CT Scan Report ---
CT OF THE CHEST WITHOUT IV CONTRAST CLINICAL HISTORY: r/o PNA; infection COMPARISON STUDY: Chest CT February 15, 2024. Chest radiograph performed earlier today. CT DOSE: 931.03 mGy.cm TECHNIQUE: Axial images of the chest were obtained without IV contrast. Images were reviewed in the axial, sagittal, and coronal planes. IV contrast was not administered for this examination. Automat ed exposure control was utilized for the study. A dose lowering technique was utilized adhering to t he principles of ALARA. FINDINGS: No enlarged axillary, mediastinal or hilar lymph nodes are present. The heart is moderatel y enlarged. Extensive coronary artery calcification. Central pulmonary arteries are mildly dilated. T here is no pericardial effusion. A moderate right pleural effusion is present. There is a trace left pleural effusion. No pneumothorax. Central airways are patent. There is no consolidation to suggest p neumonia. Mild groundglass opacities are present. There is mild interlobular septal thickening. Old L 1 compression fractures unchanged in appearance. Bilateral gynecomastia. Lobular contour of the liver surface is again noted. IMPRESSION: 1. No consolidation to suggest pneumonia. 2. Moderate right pleural effusion. Associated subpleural opacity represents atelectasis. Trace left pleural effusion. 3. Cardiomegaly. Suspected mild pulmonary edema. ACT 112: Negative or not required by law. Electronically signed by: Victor Hugo Fallon M.D. 05/04/2024 4:08 PM
[2024-05-04] MEDS ORDERED: GLUCOSE 10 TAB/TUBE PO PRN (16:46)
[2024-05-04] MEDS ORDERED: ONDANSETRON INJ 2 MG/ML 2 ML VIAL IV PRN (16:46)
[2024-05-04] MEDS ORDERED: CARBOHYDRATES FOR HYPOGLYCEMIA PO PRN (16:46)
[2024-05-04] MEDS ORDERED: MAGNESIUM HYDROXIDE SUSP 30 ML UDC PO PRN (16:46)
[2024-05-04] MEDS ORDERED: GLUCAGON FOR INJ 1 MG VIAL SQ PRN (16:46)
[2024-05-04] MEDS ORDERED: ALUMINUM/MAGNESIUM SUSP 30 ML UDC PO PRN (16:46)
[2024-05-04] MEDS ORDERED: DEXTROSE 50% 50 ML SYRINGE IV PRN (16:46)
[2024-05-04] MEDS ORDERED: GLUCOSE 40% GEL 15 GM TUBE PO PRN (16:46)
[2024-05-04] MEDS ORDERED: FLUTICASONE PROPIONATE NA SPR 16 GM BTL PRN (16:49)
[2024-05-04] MEDS: INSULIN ASPART PER UNIT CHARGE SC SCH (17:58)
[2024-05-04] MEDS: DIGOXIN 0.125 MG TAB PO SCH (20:27)
--- OUTSIDE RECORDS SUMMARY | 2024-05-04 20:40 | External Medical Summary | Summary of Care ---
Author Name Unknown Organization [facility] Address [address] [place] [address] Phone [phone] Care Team Providers Care Secondary Connector Armature Name Role Phone Chico Scherer MD Primary Care Provider + Reason for Visit * Reason Comments Dosage Adjustment In Person (Anticoag Cl inic) Encounter Details Date Type Department Care Team (Latest Contact Info) Description 04/22/2024 10:10 AM EDT Anticoagulation Pharmacy, [facility] [address] [place] [address] [facility] [address] [place] [address] Anticoagulation management encounter* Allergies No known active allergiesdocumented as of this encounter (statuses as of 04/22/2024) Medications Medication Sig Dispensed Refills Start Date End Date Status MULTIVITAMINS PO TABS one daily Active ASPIRIN 81 MG PO CHEW take one tablet daily 100 Tab 3 05/21/2010 Active DOCUSATE SODIUM 100 MG PO CAPSIndications:Con stipation One pill by mouth daily for constipation 90 Cap 3 09/20/2012 Active Blood Glucose Monitoring Suppl ([employer]of[employer]ieTOUCH ULTRA SYSTEM) W/DEVICE KITIndications:DM type 2, goal A1c below 7 Use up to 4/day - Type II diabetes- #E11.9 1 Kit 0 09/13/2015 Active ONETOUCH DELMARKO LANCETS 33G MISCIndications:Typ e 2 diabetes mellitus with hemoglobin A1c goal of less than 7.0% ([facility]) Ck FS daily as needed E11.9 100 Each 5 04/21/2019 Active Acetaminophen 500 MG Oral Capsule Take 2 Capsules by mouth in the morning and 2 Capsules before bedtime. Active Lactulose 10 GM/15ML Oral Solution (Constulose) TAKE 15 MILLILITER BY MOUTH EVERY DAY IN THE MORNING AND TAKE 15 MILLILITER BY MOUTH BEFORE BEDTIME NEEDED FOR CONSTIPATION 240 mL 12 11/20/2022 Active Levothyroxine Sodium 88 MCG Oral Tablet (Levoxyl) TAKE 1 TABLET DAILY FOR THYROID 90 Tablet 3 03/30/2023 Active Ondansetron 4 MG Oral Tablet Disintegrating (Zofran)Indications :Nausea Place 1 Tablet on tongue every 8 hours as needed for Nausea. dissolve on tongue. 90 Tablet 1 08/24/2023 Active Colchicine 0.6 MG Oral Tablet 2 tab at start of gout attack, 1 pill 1 hour later. (3 pills total per attack). Stop twice daily dosing. 12 Tablet 3 09/15/2023 Active Mupirocin 2 % External Ointment (Bactroban) APPLY TOPICALLY TO AFFECTED AREA THREE TIMES A DAY FOR UP TO 14 DAYS 75 g 29 09/28/2023 Active Additional Information Patient taking differently: 75 [...] on Thursday, Thursday, and Thursday only. Active ProAir HFA 108 (90 Base) MCG/ACT [...] only. Or as directed by anticoagulation clinic Active Finasteride 5 MG Oral Tablet (Proscar) Take 1 Tablet by mouth in the morning. 10/19/2023 Active Empagliflozin 10 MG Oral Tablet (Jardiance)Indicati ons:Type 2 diabetes mellitus with hemoglobin A1c goal of less than 8.0% (HCC) Take 1 Tablet by mouth in the morning. 30 Tablet 11 12/30/2023 Active OneTouch Ultra Test In Vitro Strip (Glucose Blood)Indications:T ype 2 diabetes mellitus with hemoglobin A1c goal of less than 8.0% (HCC) TEST DAILY DIRECTED 100 Strip 3 01/02/2024 Active Pantoprazole Sodium 40 MG Oral Tablet Delayed Release (Protonix) TAKE 1 TABLET BY MOUTH EVERY MORNING 30 MINUTES BEFORE THE FIRST MEAL OF THE DAY. DO NOT CRUSH, SPLIT OR CHEW THE TABLET. 90 Tablet 1 01/25/2024 Active Polyethylene Glycol 3350 17 GM Oral Packet (MiraLax) Take 1 Packet by mouth in the morning. Active Warfarin Sodium 5 MG Oral Tablet (Coumadin) Take 1 Tablet by mouth once a day on Thursday, , Thursday, and Thursday only. or as directed by anticoagulation clinic 90 Tablet 3 02/02/2024 Active Metoprolol Succinate ER 50 MG Oral Tablet Extended Release 24 Hour (toPROL XL)Indications:Pers istent atrial fibrillation (HCC) TAKE 3 TABLETS IN THE MORNING AND 2 TABLETS IN THE EVENING 450 Tablet 1 02/19/2024 Active Allopurinol 300 MG Oral Tablet (Zyloprim)Indicatio ns:Gouty arthropathy Take 1 Tablet by mouth in the morning. 90 Tablet 1 02/19/2024 Active metFORMIN HCl ER 500 MG Oral Tablet Extended Release 24 Hour (Glucophage XR)Indications:Type 2 diabetes mellitus with hemoglobin A1c goal of less than 8.0% (HCC) TAKE 1 TABLET EVERY MORNING AND 2 TABLETS WITH DINNER DAILY (DOSE INCREASE) 270 Tablet 1 02/19/2024 Active Pravastatin Sodium 40 MG Oral Tablet (Pravachol)Indicati ons:Congestive cardiomyopathy (HCC),High triglycerides,Dysli pidemia, goal LDL below 100 Take 1 Tablet by mouth at bedtime. 90 Tablet 1 02/19/2024 Active Mirtazapine 15 MG Oral Tablet (Remeron)Indication s:Decreased appetite,Adjustment disorder with depressed mood,Insomnia, unspecified type TAKE 1 TABLET BY MOUTH AT BEDTIME 30 Tablet 5 03/16/2024 Active Famotidine 20 MG Oral Tablet (Pepcid) Take 1 Tablet by mouth in the morning. 90 Tablet 1 03/18/2024 Active Alfuzosin HCl ER 10 MG Oral Tablet Extended Release 24 Hour (Uroxatral)Indicati ons:BPH with obstruction/lower urinary tract symptoms TAKE 1 TABLET DAILY AFTER A MEAL 90 Tablet 3 03/18/2024 Active traMADol HCl 50 MG Oral Tablet (Ultram) Take 1 Tablet by mouth 2 times a day as needed for Pain, Severe. 60 Tablet 03/23/2024 Active Ketoconazole 2 % External Cream APPLY TOPICALLY TO AFFECTED AREA TWICE A DAY TO RASH ON FACE, UNDER CHEST AND GROIN 180 g 11 03/28/2024 Active Spironolactone 25 MG Oral Tablet (Aldactone)Indicati ons:Congestive cardiomyopathy (HCC),HTN, goal below 140/90 Take 1 Tablet by mouth 2 times a day. 180 Tablet 3 04/05/2024 Active Torsemide 100 MG Oral Tablet (Demadex)Indication s:Permanent atrial fibrillation (HCC),Congestive cardiomyopathy (HCC),Heart failure, systolic, with acute decompensation (HCC) Take 1 Tablet by mouth in the morning. 90 Tablet 3 04/20/2024 Active Potassium Chloride ER 20 MEQ Oral Tablet Extended Release 1.5 tablet daily 04/20/2024 Active documented as of this encounter (statuses as of 04/22/2024) Active Problems Problem Noted Date Diagnosed Date Leg ulcer, right, limited to breakdown of skin 0 12/30/2023 Lumbar degenerative disc disease 10/15/2023 Symptomatic care patient 10/15/2023 Adult failure to thrive 10/15/2023 Permanent atrial fibrillation 03/14/2020 Secondary polycythemia 03/14/2020 DNR (do not resuscitate) 05/24/2019 Overview: 05/24/19 signed/scanned [facility] Reverbeo. Redone 02/14/20. Coronary artery disease invo lving [place] coronary artery of [place] heart without angina pectoris 04/19/2019 Dyslipidemia 04/11/2019 Acquired hypothyroidism 04/11/2019 Venous stasis dermatitis 12/10/2018 Obesity, Class I, BMI 30.0-34.9 (see actual BMI) 05/21/2018 DM type 2 with diabetic peripheral neuropathy Well adult exam 04/22/2017 Overview: 11/07 EGD [facility] mod gastritis chronic. 11/04 EMG-Abnormal study, [...] as of this encounter (statuses as of 04/22/2024) Resolved Problems Problem Noted Date Diagnosed Date [...] as of this encounter (statuses as of 04/22/2024) Immunizations Name Administration Dates Next Due COVID-19 mRNA, LNP-s, No Pre serve, 2-Dose Series (Moderna) 11/03/2020,10/01/2020 COVID-19, mRNA, LNP-s, PF, B ooster, 100mcg/0.5mg (Moderna) 02/28/2022,07/27/2021 H1N1 2009 Influenza, IM 09/17/2009 Pneumococcal Conjugate Vacc, 13 Valent (Prevnar) 04/19/2015 Pneumococcal Polysaccharide PPV23 (Pneumovax) 06/11/2012,12/09/2005 Season Influenza, Quad, PF, Adjuvanted, 65+ Yrs, IM (FLUAD) 05/04/2020 Seasonal Influenza Virus Vac cine, Unspecified Formulation 05/17/2020 Seasonal Influenza, High Dos e, Trivalent, PF, IM (Fluzone HD) 04/20/2024 Seasonal Influenza, PF, 6 M & above, IM , (FluLaval or Fluzone) 04/18/2021,05/21/2018 Seasonal Influenza, QUAD, wi th Preserv, 6 mons & Above, 0.5 mL, IM 05/21/2017 Seasonal Influenza, Quad, Na noreen (Flumist) 05/21/2017 Seasonal Influenza, Quadriva lent Hd (Fluzone Hd) 07/03/2023,06/19/2022 Seasonal Influenza, Quadriva lent, No Preserve, IM 06/05/2016 Seasonal Influenza, Trivalen t, (IIV3), with Preserv, (Fluzone) 05/09/2017,04/19/2015,05/11/2014,05/27,05/25/2012,05/05/2011,05/06/2010 ,06/05/2009,06/15/2008,06/15/2007,05/19 Seasonal Influenza, Trivalen t, Adjuvanted, 65+ YRS, PF, (Fluad) 04/19/2019 TD - Tetanus/Diptheria (ADULT) 06/29/2006 TDAP [...] this encounter Progress Notes * Madison Ackerman, [facility] - 04/22/2024 10:03 AM EDT Images from the original note were not included. Medication Therapy Disease Management - Anticoagulation Patient: Brionna Bone | : 1940 Subjective Contacts Contact Date/Time Type Contact Phone/Fax 04/15/2024 05:06 AM EDT Vendor (Outgoing) Brionna Bone [phone] 04/19/2024 05:12 AM EDT Vendor (Outgoing) Chelsey Brionna Antwan [phone] 04/21/2024 05:11 AM EDT Vendor (Outgoing) Brionna Bone Antwan [phone] Patient-Reported Symptoms: Patient Findings Negatives: Signs/symptoms of thrombosis, Signs/symptoms of bleeding, Change in health, Change in alcohol use, Change in activity, Upcoming invasive procedure, Missed doses, Extra doses, Change in medications, Change in diet/appetite, Bruising Objective Current Warfarin Dose As of 04/22/2024 Warfarin maintenance plan: 5 mg (5 mg x 1) every Tue, Sat; 2.5 mg (5 mg x 0.5) all other days INR Result As of 04/22/2024 INR goal: 2.0-3.0 INR used for dosin.8 (04/22/2024) Assessment & Plan Warfarin Plan As of 04/22/2024 Full warfarin instructions: 5 mg every Tue, Sat; 2.5 mg all other days Next INR check: 05/20/2024 Repeat PT/INR in 4 week(s) Weekly dose: increased Additional Dosing Information: I spent a total of 10-19 minutes (exact time 10 mins) on the date of service in preparation, delivery, and documentation of the care provided to Brionna Bone excluding any time spent in the performance of separately billed services or time spent by another provider/QHP. Madison Ackerman [facility] Clinical Pharmacist 04/22/2024, 10:04 AM documented in this encounter Plan of Treatment Upcoming Encounters Date Type Department Care Team (Latest Contact Info) Description 04/22/2024 10:20 AM EDT Laboratory Laboratory, [facility] [address] [place] [phone] Zayra Rowe [facility] [[email or web address]] Juanito [address] [place] [address] Encounter for monitoring diuretic therapy 05/19/2024 9:50 AM EDT Anticoagulation Pharmacy, [facility] [address] [place] [address] Jae [facility] [[email or web address]] [address] [place] [address] 07/13/2024 8:20 AM EST Office Visit Family Practice [facility] [address] [place] [address] Chico Scherer MD [address] [place] [address] 07/25/2024 11:00 AM EST PulmDiagnostic Sleep Lab [facility] [address] [place] [address] Jae Sleep Med Home Study [facility] [[email or web address]] [address] [place] [address] 08/04/2024 9:00 AM EST Office Visit Gastroenterology, [facility] [address] [place] [address] Koko Shahid MD [address] [place] [address] 10/19/2024 7:30 AM EST Office Visit Sleep Disorders Ctr [facility] [address] [place] [phone] Janeen Montaño CRNP [address] [place] [address] Health Maintenance Due Date Last Done Comments Adult Wellness Visit 02/11/2023 02/11/2022 COVID-19 Vaccine (2022-09 4 season) 2024 02/28/2022, 07/27/2021, 11/03/2020, Additional history exists DIG LEVEL FOR MEDICATION MONITORING YEARLY 09/12/2024 09/12/2023, 07/11/2023, 06/15/2023, Additional history exists Depression Screening 10/09/2024 10/09/2023 TSH 10/12/2024 10/12/2023, 06/18, 03/12/2023, Additional history exists Colonoscopy Discontinued 07/17/2017, 09/2013, 09/22/2011, Additional history exists Diabetic Foot Exam Discontinued 03/19/2020, 0 04/19/2019, 03/31/2017, Additional history exists Zoster Vaccines Completed 09/07/2020, 02/16, 05/22/2009 Diabetic Eye Exam Discontinued 12/11/2023, , 05/20/2019, Additional history exists Albumin/Creatinine Ratio Discontinued 024, 07/11/2023, 05/03/2022, Additional history exists Influenza Vaccine (FLU shot) Completed 11/2023, 07/03/2023, 06/19/2022, Additional history exists documented as of this encounter Medical Devices Not on filedocumented as of this encounter Procedures Procedure Name Priority Date/Time Associated Diagnosis Comments INR FINGERSTICK, POINT OF CARE STAT 04/22/2024 9:55 AM EDT Anticoagulation management encounter documented in this encounter Results * INR FINGERSTICK, POINT OF CARE (04/22/2024 9:55 AM EDT) Fingerstick INR 1.8 INR 9:58 AM EDT [facility] Blood 04/22/2024 9:55 AM EDT 04/22/2024 9:58 AM EDT Narrative [facility] - 04/22/2024 9:58 AM EDT Therapeutic ranges for non-operative patients: Prophylaxsis/treatment of DVT: (Range:2.0-3.0) Treatment of pulmonary embolism:(Range:2.0-3.0) Prevention of systemic embolism from: -tissue heart valves -acute myocardial infarction -valvular heart disease -atrial fibrillation (Range: 2.0-3.0) Mechanical prosthetic valves: (Range: 2.5-3.5) Madison Ackerman [facility] LAB POINT OF C ARE TEST DOCKED DEVICE UNSOLICITED RESULTS [facility] [address] [place] [id number] documented in this encounter Visit Diagnoses Diagnosis Anticoagulation management encounter- Primary Encounter for therapeutic drug monitoring Encounter for monitoring diuretic therapy Encounter for therapeutic drug monitoring documented in this encounter Advance Directives Documents on File Type Date Recorded Patient Successfactors Consultant Expl anation POLST 10/01/2023 8:31 AM POLST (Pierce ited DNR) Advance Directives and Living Will 03/11/2017 LIVING WILL Power of Presser [employer] Blocker [employer]s 03/11/2017 POWER OF A [facility] Care Teams Secondary Connector Armature Relationship Specialty Start Date End Date Chico Scherer MD [address] [place] [phone] PCP - General Family Medicine 08/27/16 documented as of this encounter"
--- OUTSIDE RECORDS SUMMARY | 2024-05-04 20:40 | External Medical Summary ---
Author Name Unknown Address Unknown Organization [id number]:[facility] [address] [place] [address] Laboratory Report Ordering Provider Test Date Status DEBORAH POOLE 04/22/2024 09:55:39 Final Therapeutic ranges for non-o perative patients:
Prophylaxsis/treatment of DVT: (Range:2.0-3.0)
Treatment of pulmonary embolism:(Range:2.0-3.0)
Prevention of systemic embolism from:
-tissue heart valves
-acute myocardial infarction
-valvular heart disease
-atrial fibrillation
(Range: 2.0-3.0)
Mechanical prosthetic valves: (Range: 2.5-3.5) Observation Date Value Abnormality Reference (Units ) Status INR in Capillary blood by Coagulation assay 04/22/2024 09:55:39 1.8 (INR) Final Performing Location [facility] 0 - [address] [place] [id number]
--- OUTSIDE RECORDS SUMMARY | 2024-05-04 20:40 | External Medical Summary | Summary of Care ---
Author Name Unknown Organization [facility] Address [address] [place] [address] Phone [phone] Care Team Providers Care Graduate Internship Name Role Phone Chico Scherer MD Primary Care Provider + Reason for Visit * Reason Comments Dosage Adjustment In Person (Anticoag Cl inic) Encounter Details Date Type Department Care Team (Latest Contact Info) Description 04/22/2024 10:10 AM EDT Anticoagulation Pharmacy, [facility] [address] [place] [address] [facility] [address] [place] [address] Anticoagulation management encounter* Allergies No known active [...] 3 09/20/2012 Active Blood Glucose Monitoring Suppl ([employer]TOUCH ULTRA SYSTEM) W/DEVICE KITIndications:DM type 2, goal A1c below 7 Use up to 4/day - Type II diabetes- #E11.9 1 Kit 0 09/13/2015 Active ONETOUCH DELMARKO LANCETS 33G MISCIndications:Typ e 2 diabetes mellitus with hemoglobin A1c goal of less than 7.0% ([facility]) Ck FS daily as needed E11.9 [...] (do not resuscitate) 05/24/2019 Overview: 05/24/19 signed/scanned [facility] Mo-DV. Redone 02/14/20. Coronary artery disease invo lving [place] coronary artery of [place] heart without angina pectoris 04/19/2019 Dyslipidemia 04/11/2019 Acquired hypothyroidism 04/11/2019 Venous stasis dermatitis 12/10/2018 Obesity, Class I, BMI 30.0-34.9 (see actual BMI) 05/21/2018 DM type 2 with diabetic peripheral neuropathy Well adult exam 04/22/2017 Overview: 11/07 EGD [facility] mod gastritis chronic. 11/04 EMG-Abnormal study, [...] 05/02/2010 03/14/2020 Anticoagulation management encounter 05/02/2010 03/14/2020 alf current use of ant icoagulant therapy 05/02/2010 [...] this encounter Progress Notes * Madison Ackerman, [facility] - 04/22/2024 10:03 AM EDT Images from the original note were not included. Medication Therapy Disease Management - Anticoagulation Patient: Brionna Bone | : 1940 Subjective Contacts Contact Date/Time Type Contact Phone/Fax 04/15/2024 05:06 AM EDT Vendor (Outgoing) Brionna Bone [phone] 04/19/2024 05:12 AM EDT Vendor (Outgoing) Chelsey Brionna Antwan [phone] 04/21/2024 05:11 AM EDT Vendor (Outgoing) Brionna Bone Antwan [phone] Patient-Reported Symptoms: Patient Findings Negatives: Signs/symptoms of [...] time spent by another provider/QHP. Madison Ackerman [facility] Clinical Pharmacist 04/22/2024, 10:04 AM documented in this encounter Plan of Treatment Upcoming Encounters Date Type Department Care Team (Late st Contact Info) Description 05/19/2024 9:50 AM EDT Anticoagulation Pharmacy, [facility] [address] [place] [address] J[facility] [address] [place] [address] 07/13/2024 8:20 AM EST Office Visit Family Practice [facility] [address] [place] [address] Chico Scherer MD [address] [place] [address] 07/25/2024 11:00 AM EST PulmDiagnostic Sleep Lab [facility] [address] [place] [address] [facility] Sleep Med Home Study [facility] [address] [place] [address] 08/04/2024 9:00 AM EST Office Visit Gastroenterology, [facility] [address] [place] [address] Koko Shahid MD [address] [place] [address] 10/19/2024 7:30 AM EST Office Visit Sleep Disorders Ctr [facility] [address] [place] [phone] Janeen Montaño CRNP [address] [place] [address] Health Maintenance Due Date Last Done Comments Adult Wellness Visit 02/11/2023 02/11/2022 COVID-19 Vaccine (5 - 2022-2 4 season) 2024 02/28/2022, 07/27/2021, 11/03/2020, Additional [...] INR 1.8 INR 9:58 AM EDT [facility] Blood 04/22/2024 9:55 AM EDT 04/22/2024 9:58 AM EDT Narrative [facility] - 04/22/2024 9:58 AM EDT Therapeutic ranges for non-operative patients: Prophylaxsis/treatment of DVT: (Range:2.0-3.0) Treatment of pulmonary embolism:(Range:2.0-3.0) Prevention of systemic embolism from: -tissue heart valves -acute myocardial infarction -valvular heart disease -atrial fibrillation (Range: 2.0-3.0) Mechanical prosthetic valves: (Range: 2.5-3.5) Madison Ackerman [facility] LAB POINT OF C ARE TEST DOCKED DEVICE UNSOLICITED RESULTS [facility] [address] [place] [address] documented in this encounter Visit Diagnoses Diagnosis Anticoagulation management encounter- Primary Encounter for therapeutic drug monitoring documented in this encounter Advance Directives Documents on File Type Date Recorded Patient Scalemaker Expl anation POLST 10/01/2023 8:31 AM POLST (Pierce ited DNR) Advance Directives and Living Will 03/11/2017 LIVING WILL Power of Nozzle Worker 03/11/2017 POWER OF A [facility] Care Teams Graduate Internship Relationship Specialty Start Date End Date Chico Scherer MD [address] [place] [address] PCP - General Family Medicine 08/27/16 documented as of this encounter"
--- OUTSIDE RECORDS SUMMARY | 2024-05-04 20:40 | External Medical Summary | Summary of Care ---
Author Name Unknown Organization [facility] Address [address] [place] [address] Phone [phone] Care Team Providers Care Roll Table Operator Name Role Phone Chico Villarreal MD Primary Care Provider + Reason for Visit * Reason Comments eRx-Medication Refill Encounter Details Date Type Department Care Team (Late st Contact Info) Description 04/24/2024 Refill Family Practice [facility] [address] [place] [address] Chico Villarreal MD [address] [place] [address] Type 2 diabetes mellitus with hemoglobin A1c goal of less than 8.0% ([facility]) Allergies No known active allergiesdocumented as of this encounter (statuses as of 04/25/2024) Medications Medication Sig Dispensed Refills Start Date End Date Status MULTIVITAMINS PO TABS one daily Active ASPIRIN 81 MG PO CHEW take one tablet daily 100 Tab 3 05/21/20 10 Active DOCUSATE SODIUM 100 MG PO CAPSIndications:Co nstipation One pill by mouth daily for constipation 90 Cap 3 09/20/19 13 Active Blood Glucose Monitoring Suppl (Next[employer]UCH ULTRA SYSTEM) W/DEVICE KITIndications:DM type 2, goal A1c below 7 Use up to 4/day - Type II diabetes- #E11.9 1 Kit 0 09/13/19 16 Active ONETOUCH DELICA LANCETS 33G MISCIndications:Ty pe 2 diabetes mellitus with hemoglobin A1c goal of less than 7.0% ([facility]) Ck FS daily as needed E11.9 100 [...] CONSTIPATION 240 mL 12 11/21/19 23 Active Levothyroxine Sodium 88 MCG Oral Tablet (Levoxyl) TAKE 1 TABLET DAILY FOR THYROID 90 Tablet 3 03/30/20 23 Active Ondansetron 4 MG Oral Tablet Disintegrating [...] mouth in the morning. 10/19/19 24 Active OneTouch Ultra Test In Vitro [...] TABLET. 90 Tablet 1 01/25/20 24 Active Polyethylene Glycol 3350 17 GM [...] bedtime. 90 Tablet 1 02/19/20 24 Active Mirtazapine 15 MG Oral Tablet (Remeron)Indicatio ns:Decreased appetite,Adjustmen t disorder with depressed mood,Insomnia, unspecified type TAKE 1 TABLET BY MOUTH AT BEDTIME 30 Tablet 5 03/16/20 24 Active Famotidine 20 MG Oral Tablet (Pepcid) Take 1 Tablet by mouth in the morning. 90 Tablet 1 03/18/20 24 Active Alfuzosin HCl ER 10 MG Oral Tablet Extended Release 24 Hour (Uroxatral)Indicat ions:BPH with obstruction/lower urinary tract symptoms TAKE 1 TABLET DAILY AFTER A MEAL 90 Tablet 3 03/18/20 24 Active traMADol HCl 50 MG Oral Tablet (Ultram) Take 1 Tablet by mouth 2 times a day as needed for Pain, Severe. 60 Tablet 03/23/20 24 Active Ketoconazole 2 % External Cream APPLY TOPICALLY TO AFFECTED AREA TWICE A DAY TO RASH ON FACE, UNDER CHEST AND GROIN 180 g 11 03/28/20 24 Active Spironolactone 25 MG Oral Tablet (Aldactone)Indicat ions:Congestive cardiomyopathy (HCC),HTN, goal below 140/90 Take 1 Tablet by mouth 2 times a day. 180 Tablet 3 04/05/20 24 Active Torsemide 100 MG Oral Tablet (Demadex)Indicatio ns:Permanent atrial fibrillation (HCC),Congestive cardiomyopathy (HCC),Heart failure, systolic, with acute decompensation (HCC) Take 1 Tablet by mouth in the morning. 90 Tablet 3 04/20/20 24 Active Potassium Chloride ER 20 MEQ Oral Tablet Extended Release 1.5 tablet daily 04/20/20 24 Active Jardiance 10 MG Oral Tablet (Empagliflozin)Ind ications:Type 2 diabetes mellitus with hemoglobin A1c goal of less than 8.0% (HCC) TAKE 1 TABLET IN THE MORNING 90 Tablet 3 04/25/20 24 Active Empagliflozin 10 MG Oral Tablet (Jardiance)Indicat ions:Type 2 diabetes mellitus with hemoglobin A1c goal of less than 8.0% (HCC) Take 1 Tablet by mouth in the morning. 30 Tablet 11 12/30/19 24 024 Discontinued documented as of this encounter (statuses as of 04/25/2024) Active Problems Problem Noted Date Diagnosed Date Leg ulcer, right, limited to breakdown of skin 0 12/30/2023 Lumbar degenerative disc disease 10/15/2023 Symptomatic care patient 10/15/2023 Adult failure to thrive 10/15/2023 Permanent atrial fibrillation 03/14/2020 Secondary polycythemia 03/14/2020 DNR (do not resuscitate) 05/24/2019 Overview: 05/24/19 signed/scanned [facility]. Redone 02/14/20. Coronary artery disease invo lving [place] coronary artery of [place] heart without angina pectoris 04/19/2019 Dyslipidemia 04/11/2019 [...] as of this encounter (statuses as of 04/25/2024) Resolved Problems Problem Noted Date Diagnosed Date [...] 05/02/2010 03/14/2020 Anticoagulation management encounter 05/02/2010 03/14/2020 media professional current use of ant icoagulant therapy 05/02/2010 [...] as of this encounter (statuses as of 04/25/2024) Immunizations Name Administration Dates Next Due COVID-19 [...] encounter Miscellaneous Notes * Telephone Encounter - Vivien Oakley [facility] - 04/25/2024 7:09 PM EDT Signed Prescriptions: Disp Refills Jardiance 10 MG Oral Tablet (Empagliflozin)90 Tab*3 Sig: TAKE 1 TABLET IN THE MORNINGAuthorizing Provider: CHICO VILLARREAL User: VIVIEN OAKLEY- documented in this encounter Plan of Treatment Upcoming Encounters Date Type Department Care Team (Late st Contact Info) Description 05/19/2024 9:50 AM EDT [facility] [address] [place] [address] J[facility] [place] [address] 07/13/2024 8:20 AM EST Office Visit Family Practice [facility] [address] [place] [address] Chico Villarreal MD [address] [place] [address] 07/25/2024 11:00 AM EST PulmDiagnostic Sleep Lab [facility] [address] [place] [address] [facility], Sleep Med Home Study [facility] [address] [place] [address] 08/04/2024 9:00 AM EST Office Visit Gastroenterology, [facility] [address] [place] [address] Koko Shahid MD [address] [place] [address] 10/19/2024 7:30 AM EST Office Visit Sleep Disorders Ctr [facility] [address] [place] [phone] Janeen Montaño CRNP [address] [place] [address] Health Maintenance Due Date Last Done Comments Adult Wellness Visit 02/11/2023 02/11/2022 COVID-19 Vaccine (2022- 4 season) 2024 02/28/2022, 07/27/2021, 11/03/2020, Additional history exists DIG LEVEL FOR MEDICATION MONITORING YEARLY 09/12/2024 09/12/2023, 07/11/2023, 06/15/2023, Additional history exists Depression Screening 10/09/2024 10/09/2023 TSH 10/12/2024 10/12/2023, 06/18, 03/12/2023, Additional history exists Colonoscopy Discontinued 07/17/2017, 09/2013, 09/22/2011, Additional history exists Diabetic Foot Exam Discontinued 03/19/2020, 0 04/19/2019, 03/31/2017, Additional history exists Zoster Vaccines Completed 09/07/2020, 0708/2019, 05/22/2009 Diabetic Eye Exam Discontinued 12/11/2023, , 05/20/2019, Additional history exists Albumin/Creatinine Ratio Discontinued 024, 07/11/2023, 05/03/2022, Additional history exists Influenza Vaccine (FLU shot) Completed 11/2023, 07/03/2023, 06/19/2022, Additional history exists documented as of this encounter Medical Devices Not on filedocumented as of this encounter Visit Diagnoses Diagnosis Type 2 diabetes mellitus with hemoglobin A1c goal of less than 8.0% (HCC) documented in this encounter Advance Directives Documents on File Type Date Recorded Patient Sanforizing Machine Operator Expl anation POLST 10/01/2023 8:31 AM POLST (Pierce ited DNR) Advance Directives and Living Will 03/11/2017 LIVING WILL Power of Traffic Survey Technician 03/11/2017 [facility] Care Teams Roll Table Operator Relationship Specialty Start Date End Date Chico Villarreal MD [address] [place] [address] PCP - General Family Medicine 08/27/16 documented as of this encounter
--- OUTSIDE RECORDS SUMMARY | 2024-05-04 20:40 | External Medical Summary | Summary of Care ---
Author Name Unknown Organization [facility] Address [address] [place] [address] Phone [phone] Care Team Providers Care Veneer Stacker Name Role Phone Chico Scherer MD Primary Care Provider + Reason for Visit * Reason Comments Outpatient Testing Encounter Details Date Type Department Care Team (Late st Contact Info) Description 04/22/2024 10:20 AM EDT Laboratory Laboratory, [facility] [address] [place] [phone] [facility] [address] [place] [address] Encounter for monitoring diuretic therapy Allergies No [...] 3 09/20/2012 Active Blood Glucose Monitoring Suppl (ONETOUCH ULTRA SYSTEM) W/DEVICE KITIndications:DM type 2, goal A1c below 7 Use up to 4/day - Type II diabetes- #E11.9 1 Kit 0 09/13/2015 Active ONETOUCH [place] LANCETS 33G MISCIndications:Typ e 2 diabetes mellitus with hemoglobin A1c goal of less than 7.0% ([facility]) Ck FS daily as needed [...] (do not resuscitate) 05/24/2019 Overview: 05/24/19 signed/scanned [facility]. Redone 02/14/20. Coronary artery disease invo lving [place] coronary artery of [place] heart without angina pectoris 04/19/2019 Dyslipidemia 04/11/2019 Acquired hypothyroidism 04/11/2019 Venous stasis dermatitis 12/10/2018 Obesity, Class I, BMI 30.0-34.9 (see actual BMI) 05/21/2018 DM type 2 with diabetic peripheral neuropathy Well adult exam 04/22/2017 Overview: 11/07 EGD [facility] mod gastritis chronic. 11/04 EMG-Abnormal [...] 05/02/2010 03/14/2020 Anticoagulation management encounter 05/02/2010 03/14/2020 half-way current use of ant icoagulant therapy 05/02/2010 [...] Description 05/19/2024 9:50 AM EDT Anticoagulation Pharmacy, [facility] [address] [place] [address] J[facility] [address] [place] [address] 07/13/2024 8:20 AM EST Office Visit Family Practice [facility] [address] [place] [address] Chico Scherer MD [address] [place] [address] 07/25/2024 11:00 AM EST PulmDiagnostic Sleep Lab [place] [address] Jae, Sleep Med Home Study [facility] [address] [place] [address] 08/04/2024 9:00 AM EST Office Visit Gastroenterology, [facility] [address] [place] [address] Koko Shahid MD [address] [place] [address] 10/19/2024 7:30 AM EST Office Visit Sleep Disorders Ctr [facility] [address] [place] [phone] Janeen Montaño CRNP [address] [place] [address] Pending Results Name Type Priority Associated Diagnoses Date /Time BASIC METABOLIC PANEL Lab Routine Encounter for monitoring diuretic therapy 04/22/2024 10:17 AM EDT Health Maintenance Due Date Last [...] as of this encounter Visit Diagnoses Diagnosis Encounter for monitoring diuretic therapy Encounter for therapeutic drug monitoring documented in this encounter Advance Directives Documents on File Type Date Recorded Patient Oracle Applications Analyst Expl anation POLST 10/01/2023 8:31 AM POLST (Pierce ited DNR) Advance Directives and Living Will 03/11/2017 LIVING WILL Power of Improvement Leader 03/11/2017 POWER OF A [facility] Care Teams Veneer Stacker Relationship Specialty Start Date End Date Chico Scherer MD [address] [place] [address] PCP - General Family Medicine 08/27/16 documented as of this encounter
--- OUTSIDE RECORDS SUMMARY | 2024-05-04 20:40 | External Medical Summary | Summary of Care ---
Author Name Unknown Organization [facility] Address [address] [place] [address] Phone [phone] Care Team Providers Care Assistant Tennis Coach Name Role Phone Chico Villarreal MD Primary Care Provider + Reason for Visit * Reason Comments eRx-Medication Refill Encounter Details Date Type Department Care Team (Late st Contact Info) Description 04/24/2024 Refill Family Practice [facility] [address] [place] [address] Rambo Guy CRNP [address] [place] [address] Allergies No known active allergiesdocumented as of this encounter (statuses as of 04/26/2024) Medications Medication Sig Dispensed Refills Start Date End Date Status MULTIVITAMINS PO TABS one daily Active ASPIRIN 81 MG PO CHEW take one tablet daily 100 Tab 3 05/21/20 10 Active DOCUSATE SODIUM 100 MG PO CAPSIndications:Co nstipation One pill by mouth daily for constipation 90 Cap 3 09/20/19 13 Active Blood Glucose Monitoring Suppl ([employer] ULTRA SYSTEM) W/DEVICE KITIndications:DM type 2, goal A1c below 7 Use up to 4/day - Type II diabetes- #E11.9 1 Kit 0 09/13/19 16 Active ONETOUCH DELICA LANCETS 33G MISCIndications:Ty pe 2 diabetes mellitus with hemoglobin A1c goal of less than 7.0% ([facility]) Ck FS daily as needed E11.9 [...] MEAL 90 Tablet 3 03/18/20 24 Active Ketoconazole 2 % External Cream [...] Release 1.5 tablet daily 04/20/20 24 Active traMADol HCl 50 MG Oral Tablet (Ultram) Take 1 Tablet by mouth 2 times a day as needed for Pain, Severe. 60 Tablet 04/26/20 24 Active Jardiance 10 MG Oral Tablet (Empagliflozin)Ind ications:Type 2 diabetes mellitus with hemoglobin A1c goal of less than 8.0% ([facility]) TAKE 1 TABLET IN THE MORNING 90 Tablet 3 04/25/20 24 Active traMADol HCl 50 MG Oral Tablet (Ultram) Take 1 Tablet by mouth 2 times a day as needed for Pain, Severe. 60 Tablet 03/23/20 24 024 Discontinued documented as of this encounter (statuses as of 04/26/2024) Active Problems Problem Noted Date Diagnosed Date Leg ulcer, right, limited to breakdown of skin 0 12/30/2023 Lumbar degenerative disc disease 10/15/2023 Symptomatic care patient 10/15/2023 Adult failure to thrive 10/15/2023 Permanent atrial fibrillation 03/14/2020 Secondary polycythemia 03/14/2020 DNR (do not resuscitate) 05/24/2019 Overview: 05/24/19 signed/scanned [facility]. Redone 02/14/20. Coronary artery disease invo lving [place] coronary artery of [place] heart without angina pectoris 04/19/2019 Dyslipidemia 04/11/2019 Acquired hypothyroidism 04/11/2019 Venous stasis dermatitis 12/10/2018 Obesity, Class I, BMI 30.0-34.9 (see actual BMI) 05/21/2018 DM type 2 with diabetic peripheral neuropathy Well adult exam 04/22/2017 Overview: 11/07 EGD [facility] mod gastritis chronic. 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 Gastroesophageal reflux dise ase with esophagitis 03/14/2020 [...] 05/02/2010 03/14/2020 Anticoagulation management encounter 05/02/2010 03/14/2020 adjunct faculty for medical terminology current use of ant icoagulant therapy 05/02/2010 [...] as of this encounter (statuses as of 04/26/2024) Immunizations Name Administration Dates Next Due COVID-19 [...] Telephone Encounter - Chico Villarreal MD - 04/26/2024 9:58 PM EDTSigned Prescriptions: Disp Refills traMADol HCl 50 MG Oral Tablet (Ultram) 60 Tab*0 Sig: Take 1 Tablet by mouth 2 times a day as needed for Pain, Severe.Authorizing Provider: CHICO VILLARREAL---- * Telephone Encounter - Ania Paula RP - 04/26/2024 9:30 AM EDT Pending Prescriptions: Disp Refills traMADol HCl 50 MG Oral Tablet [Pharmacy M*60 Tab*0 Sig: TAKE 1 TABLET BY MOUTH TWO TIMES DAILY NEEDED FOR SEVERE PAIN * Telephone Encounter - Ania Paula [facility] - 04/26/2024 9:30 AM EDT I have reviewed the patients controlled substance dispensing history in the Prescription Drug Monitoring Program in compliance with the [facility] regulations before prescribing a controlled substance. PDMP checked on 04/26/2024. Pending Prescriptions: Disp Refills traMADol HCl 50 MG Oral Tablet (Ultram) [*60 Tab*0 Sig: TAKE 1 TABLET BY MOUTH TWO TIMES DAILY NEEDED FOR SEVERE PAIN Last Visit: 03/14/2024 (in office), 02/02/2020 (telemedicine) Next Visit: 07/13/2024 Date medication was last filled: 03/23/24 Date medication is due for refill: 04/21/24 Pharmacy: [facility] [id number] [place] Is this request for a controlled substance? Yes and Urine Drug Screen Not completed Toxicology results: No results found. However, due to the size of the patient record, not all encounters were searched.Please check Results Review for a complete set of results. Please approve if appropriate. Thanks, Ania Paula [facility] Clinical Pharmacist [facility] ([facility]) [phone] documented in this encounter Plan of Treatment Upcoming Encounters Date Type Department Care Team (Late st Contact Info) Description 05/19/2024 9:50 AM EDT Anticoagulation Pharmacy, [facility] [address] [place] [address] [facility] [address] [place] [address] 07/13/2024 8:20 AM EST Office Visit Family Practice [facility] [address] [place] [address] Chico Villarreal MD [address] [place] [address] 07/25/2024 11:00 AM EST PulmDiagnostic Sleep Lab Gwen Rowe [address] [place] [address] [facility] Sleep Med Home Study [facility] [address] [place] [address] 08/04/2024 9:00 AM EST Office Visit Gastroenterology, [facility] [address] [place] [address] Koko Shahid MD [address] [place] [address] 10/19/2024 7:30 AM EST [facility] [address] [place] [phone] Janeen Montaño CRNP [address] [place] [address] Health Maintenance Due Date Last Done Comments [...] Documents on File Type Date Recorded Patient Boot Turner Expl anation POLST 10/01/2023 8:31 AM POLST (Pierce ited DNR) Advance Directives and Living Will 03/11/2017 LIVING WILL Power of Ui Developer Designer 03/11/2017 [facility] Care Teams Assistant Tennis Coach Relationship Specialty Start Date End Date Chico Villarreal MD [address] [place] [address] PCP - General Family Medicine 08/27/16 documented as of this encounter
--- OUTSIDE RECORDS SUMMARY | 2024-05-04 20:40 | External Medical Summary ---
Author Name Unknown Address Unknown Organization [facility] [address] [place] [address] Laboratory Report Ordering Provider Test Date Status TAMIE NGUYEN 04/22/2024 10:17:40 Final Observation Date Value Abnormality Reference (Units ) Status BUN 04/22/2024 10:17:40 35 Above high normal 6-20 (mg/dL) Final Creatinine 04/22/2024 10:17:40 1.4 Above high normal 0.6-1.2 (mg/dL) Final Glomerular filtration rate/1.73 sq M.predicted [Volume Rate/Area] in Serum, Plasma or Blood by Creatinine-based formula (CKD-EPI) 04/22/2024 10:17:40 51 Below low normal >=60 (mL/min) Final eGFR is calculated based on the CKD-EPI 2020 equation. Sodium 04/22/2024 10:17:40 136 135-146 (m mol/L) Final Potassium 04/22/2024 10:17:40 4.4 3.5-5.1 (m mol/L) Final Cl 04/22/2024 10:17:40 95 Below low normal 98- 107 (mmol/L) Final CO2 04/22/2024 10:17:40 24 22-32 (mmo l/L) Final Anion gap 04/22/2024 10:17:40 17 Above high normal 7- 15 (mmol/L) Final Glucose 04/22/2024 10:17:40 208 Above high normal 70 -120 (mg/dL) Final Calcium 04/22/2024 10:17:40 9.3 8.4-10.2 ( mg/dL) Final Performing Location [facility] [place] [address]
--- OUTSIDE RECORDS SUMMARY | 2024-05-04 20:40 | External Medical Summary | Summary of Care ---
Author Name Unknown Organization [facility] Address [address] [place] [address] Phone [phone] Care Team Providers Care General Forecaster Name Role Phone Chico Scherer MD Primary Care Provider + Reason for Visit * Reason Onset Date Comments Test Results 04/22/2024 Encounter Details Date Type Department Care Team (Late st Contact Info) Description 04/22/2024 Telephone Cardiology, [facility] [address] [facility] [place] [address] Aris Potter [place] [address] [place] [address] Test Results Allergies No known active allergiesdocumented [...] (do not resuscitate) 05/24/2019 Overview: 05/24/19 signed/scanned [facility] [employer]. Redone 02/14/20. Coronary artery disease invo lving [place] coronary artery of [place] heart without angina pectoris 04/19/2019 Dyslipidemia 04/11/2019 Acquired hypothyroidism 04/11/2019 Venous stasis dermatitis 12/10/2018 Obesity, Class I, BMI 30.0-34.9 (see actual BMI) 05/21/2018 DM type 2 with diabetic peripheral neuropathy Well adult exam 04/22/2017 Overview: 11/07 EGD [facility] mod gastritis chronic. 11/04 EMG-Abnormal study, although [...] 05/02/2010 03/14/2020 Anticoagulation management encounter 05/02/2010 03/14/2020 long term care administrator current use of ant icoagulant therapy 05/02/2010 [...] encounter Miscellaneous Notes * Telephone Encounter - Miri Lundy LPN - 04/22/2024 3:39 PM EDT mychart * Telephone Encounter - Miri Lundy LPN - 04/22/2024 3:38 PM EDT ----- Message from Aris Potter sent at 04/22/2024 12:43 PM EDT ----- OK/stable documented in this encounter Plan of Treatment Upcoming Encounters Date Type Department Care Team (Late st Contact Info) Description 05/19/2024 9:50 AM EDT Anticoagulation Pharmacy, [facility] [address] [place] [address] [facility] [address] [place] [address] 07/13/2024 8:20 AM EST Office Visit Family Practice [facility] [address] [place] [address] Chico Scherer MD [address] [place] [address] 07/25/2024 11:00 AM EST PulmDiagnostic Sleep Lab Gwen Rowe [address] [place] [address] [facility] Sleep Med Home Study [facility] [address] [place] [address] 08/04/2024 9:00 AM EST Office Visit Gastroenterology, [facility] [address] [place] [address] Koko Shahid MD [address] [place] [address] 10/19/2024 7:30 AM EST [facility] [place] [phone] Janeen Montaño CRNP [address] [place] [address] Health Maintenance Due Date Last Done Comments [...] Documents on File Type Date Recorded Patient Cigarette Making Machine Catcher Expl anation POLST 10/01/2023 8:31 AM POLST (Pierce ited DNR) Advance Directives and Living Will 03/11/2017 LIVING WILL Power of Foster Care Social Worker 03/11/2017 [facility] Care Teams General Forecaster Relationship Specialty Start Date End Date Chico Scherer MD [address] [place] [address] PCP - General Family Medicine 08/27/16 documented as of this encounter
--- OUTSIDE RECORDS SUMMARY | 2024-05-04 20:40 | External Medical Summary | Summary of Care ---
Author Name Unknown Organization [facility] Address [address] [place] [address] Phone [phone] Care Team Providers Care Plant Maintenance Supervisor Name Role Phone Chico Villarreal MD Primary Care Provider + Reason for Visit * Reason Comments eRx-Medication Refill Encounter Details Date Type Department Care Team (Late st Contact Info) Description 04/24/2024 Refill Family Practice [facility] [address] [place] [address] Rambo Guy CRNP [address] [place] [address] Allergies No known active allergiesdocumented as of this encounter (statuses as of 04/27/2024) Medications Medication Sig Dispensed Refills Start Date End Date Status MULTIVITAMINS PO TABS one daily Active ASPIRIN 81 MG PO CHEW take one tablet daily 100 Tab 3 05/21/20 10 Active DOCUSATE SODIUM 100 MG PO CAPSIndications:Co nstipation One pill by mouth daily for constipation 90 Cap 3 09/20/19 13 Active Blood Glucose Monitoring Suppl (nfon ULTRA SYSTEM) W/DEVICE KITIndications:DM type 2, goal [...] ([facility]) TAKE 1 TABLET IN THE MORNING 90 Tablet 3 04/25/20 24 Active traMADol HCl 50 MG Oral Tablet (Ultram) Take 1 Tablet by mouth 2 times a day as needed for Pain, Severe. 60 Tablet 03/23/20 24 024 Discontinued documented as of this encounter (statuses as of 04/27/2024) Active Problems Problem Noted Date Diagnosed Date Leg ulcer, right, limited to breakdown of skin 0 12/30/2023 Lumbar degenerative disc disease 10/15/2023 Symptomatic care patient 10/15/2023 Adult failure to thrive 10/15/2023 Permanent atrial fibrillation 03/14/2020 Secondary polycythemia 03/14/2020 DNR (do not resuscitate) 05/24/2019 Overview: 05/24/19 signed/scanned [facility]. Redone 02/14/20. Coronary artery disease invo lving [place] coronary artery of [place] heart without angina pectoris 04/19/2019 Dyslipidemia 04/11/2019 Acquired hypothyroidism 04/11/2019 Venous stasis dermatitis 12/10/2018 Obesity, Class I, BMI 30.0-34.9 (see actual BMI) 05/21/2018 DM type 2 with diabetic peripheral neuropathy Well adult exam 04/22/2017 Overview: 11/07 EGD [facility] mod gastritis chronic. 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 Informed pt's EC that RX is available at their pharmacy. EC verbalized understanding and stated they will check with their pharmacy regarding this medication. Thank you, Indra Roman C Web Developer I [facility] 04/27/2024,8:24 AM * Telephone Encounter - Chico Villarreal MD - 04/26/2024 9:58 PM EDTSigned Prescriptions: Disp Refills traMADol HCl 50 MG Oral Tablet (Ultram) 60 Tab*0 Sig: Take 1 Tablet by mouth 2 times a day as needed for Pain, Severe.Authorizing Provider: CHICO VILLARREAL---- * Telephone Encounter - Ania Paula [facility] - 04/26/2024 9:30 AM EDT Pending Prescriptions: Disp Refills traMADol HCl 50 MG Oral Tablet [Pharmacy M*60 Tab*0 Sig: TAKE 1 TABLET BY MOUTH TWO TIMES DAILY NEEDED FOR SEVERE PAIN * Telephone Encounter - Ania Paula RP - 04/26/2024 9:30 AM EDT I have reviewed the patients controlled substance dispensing history in the Prescription Drug Monitoring Program in compliance with the [facility] regulations before prescribing a controlled substance. PDMP checked on 04/26/2024. Pending Prescriptions: Disp Refills traMADol HCl 50 MG Oral Tablet (Ultram) [*60 Tab*0 Sig: TAKE 1 TABLET BY MOUTH TWO TIMES DAILY NEEDED FOR SEVERE PAIN Last Visit: 03/14/2024 (in office), 02/02/2020 (telemedicine) Next Visit: 07/13/2024 Date medication was last filled: 03/23/24 Date medication is due for refill: 04/21/24 Pharmacy: [facility] [id number] [place] Is this request for a controlled substance? Yes and Urine Drug Screen Not completed Toxicology results: No results found. However, due to the size of the patient record, not all encounters were searched.Please check Results Review for a complete set of results. Please approve if appropriate. Thanks, Ania Paula [facility] Clinical Pharmacist [facility] [phone] documented in this encounter Plan of Treatment Upcoming Encounters Date Type Department Care Team (Late st Contact Info) Description 05/19/2024 9:50 AM EDT Anticoagulation Pharmacy, [facility] [address] [place] [address] [place], [facility] [address] [place] [id number] 07/13/2024 8:20 AM EST Office Visit Family Practice [facility] [address] [place] [id number] Chico Villarreal MD [address] [place] [id number] 07/25/2024 11:00 AM EST PulmDiagnostic Sleep Lab [facility] [address] [place] [phone] [facility] [address] [place] [id number] 08/04/2024 9:00 AM EST Office Visit Gastroenterology, [facility] [address] [place] [address] Koko Shahid MD [address] [place] [id number] 10/19/2024 7:30 AM EST Office Visit [facility] Disorders Ctr [facility] [address] [facility] [place] [phone] Janeen Montaño CRNP [address] [place] [address] Health Maintenance Due Date Last Done Comments [...] Documents on File Type Date Recorded Patient Welt Cutter Expl anation POL 10/01/2023 8:31 AM SALUD (Pierce ited DNR) Advance Directives and Living Will 03/11/2017 LIVING WILL Power of Sludge Filtration Operator 03/11/2017 [facility] Care Teams Plant Maintenance Supervisor Relationship Specialty Start Date End Date Chico Villarreal MD [address] [place] [id number] PCP - General Family Medicine 08/27/16 documented as of this encounter
--- OUTSIDE RECORDS SUMMARY | 2024-05-04 20:41 | External Medical Summary | Summary of Care ---
Author Name Unknown Organization [facility] Address [address] [place] [address] Phone [phone] Care Team Providers Care Career Development Facilitator Name Role Phone [place] Scherer MD Primary Care Provider + Reason for Visit * Reason Onset Date Comments Follow Up Medication Administration 04/20/2024 Flu an d/or Pneumo Inj Encounter Details Date Type Department Care Team (Latest Contact Info) Description 04/20/2024 1:15 PM EDT Office Visit Cardiology, [facility] [address] [facility] [place] [id number] Aris Potter PA-C [address] [facility] [place] [address] Need for prophylactic vaccination and inoculation against influenza*; Permanent atrial fibrillation (HCC); Congestive cardiomyopathy (HCC); Heart failure, systolic, with acute decompensation (HCC) Allergies No known active allergiesdocumented as of this encounter (statuses as of 04/20/2024) Medications Medication Sig Dispensed Refills Start Date End Date Status MULTIVITAMINS PO TABS one daily Active ASPIRIN 81 MG PO CHEW take one tablet daily 100 Tab 3 05/21/20 10 Active DOCUSATE SODIUM 100 MG PO CAPSIndications:Co nstipation One pill by mouth daily for constipation 90 Cap 3 09/20/19 13 Active Blood Glucose Monitoring Suppl (Bio[employer] SYSTEM) W/DEVICE KITIndications:DM type 2, goal A1c below 7 Use up to 4/day - Type II diabetes- #E11.9 1 Kit 0 09/13/19 16 Active SHERIN GASPAR LANCETS 33G MISCIndications:Ty pe 2 diabetes mellitus with hemoglobin A1c goal of less than 7.0% ([facility]) Ck FS daily as needed E11.9 100 [...] mouth in the morning. 10/19/19 24 Active Empagliflozin 10 MG Oral Tablet (Jardiance)Indicat ions:Type 2 diabetes mellitus with hemoglobin A1c goal of less than 8.0% (HCC) Take 1 Tablet by mouth in the morning. 30 Tablet 11 12/30/19 24 Active OneTouch Ultra Test In Vitro Strip (Glucose Blood)Indications: Type 2 diabetes mellitus with hemoglobin A1c goal of less than 8.0% ([facility]) TEST DAILY DIRECTED 100 Strip 3 01/02/20 [...] 2 TABLETS IN THE EVENING 450 Tablet 02/19/20 24 Active Allopurinol 300 MG Oral [...] Release 1.5 tablet daily 04/20/20 24 Active Potassium Chloride ER 20 MEQ Oral Tablet Extended Release Take 1 Tablet by mouth in the morning. 024 Discontinued Torsemide 20 MG Oral Tablet (Demadex)Indicatio ns:Permanent atrial fibrillation (HCC),Congestive cardiomyopathy (HCC),Heart failure, systolic, with acute decompensation (HCC) Take 2 Tablets by mouth 2 times a day. 360 Tablet 3 04/05/20 24 024 Discontinued documented as of this encounter (statuses as of 04/20/2024) Active Problems Problem Noted Date Diagnosed Date Leg ulcer, right, limited to breakdown of skin 0 12/30/2023 Lumbar degenerative disc disease 10/15/2023 Symptomatic care patient 10/15/2023 Adult failure to thrive 10/15/2023 Permanent atrial fibrillation 03/14/2020 Secondary polycythemia 03/14/2020 DNR (do not resuscitate) 05/24/2019 Overview: 05/24/19 signed/scanned [facility] [employer] Redone 02/14/20. 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 05/02/2010 [...] as of this encounter (statuses as of 04/20/2024) Immunizations Name Administration Dates Next Due COVID-19 [...] Sign Reading Time Taken Comments Blood Pressure 96/64 04/20/2024 1:05 PM EDT Pulse 74 04/20/2024 1:05 PM EDT Temperature - - Respiratory Rate 20 04/20/2024 1:05 PM EDT Oxygen Saturation - - Inhaled Oxygen Concentration - - Weight 115.4 kg (254 lb 8 oz) 04/20/2024 1:05 PM EDT Height - - Body Mass Index 36.52 04/19/2024 9:04 AM EDT documented in this encounter Patient Instructions * Patient Instructions* Melissa Irby CMA - 04/20/2024 1:07 PM EDT ~~PATIENT INSTRUCTIONS FOR FLU SHOT~~ Possible side effects of influenza vaccine, (flu shot), are usually mild and include: 1. Soreness or redness at injection site 2. Low grade fever 3. Body aches You may use Tylenol/Acetaminophen as needed for these symptoms. LET YOUR DOCTOR KNOW IMMEDIATELY IF YOU HAVE DIFFICULTY BREATHING OR SWALLOWING, EXPERIENCE ITCHINGOF FEET OR HANDS, HAVE SWELLING OF EYES, FACE OR INSIDE OF NOSE. documented in this encounter Progress Notes * Aris Potter PA-C - 04/20/2024 1:13 PM EDT History of Present Illness: Mr. Brionna Bone is a 83-year-old male who presents today for cardiology evaluation Accompanied by Maria Esthre. Resident of [facility] since October 08, 2023. Patient hospitalized at [facility] March 05, 2024 to March 09, 2024 with complaints of increased shortness of breath and cough x3 days, acute decompensated heart failure, HFrEF, with associated right greaterthan left pleural effusions. Patient treated with IV furosemide 80 mg twice per day. Following IV diuresis patient was transitioned to oral torsemide at 40 mg in the morning and 20 mg in the afternoon (prior to arrival diuretic dosing was furosemide 80 AM, 40 PM). 2 g sodium restriction and 2 L fluid restriction advised. Patient returns today with complaints of intermittent wheezing and shortness of breath, "huffing and puffing," nonproductive cough, abdominal bloating, lower extremity peripheral edema. notes that recent transient increase in torsemide from 80 mg/day to 100 mg/day x3 days resulted in temporaryimprovement though with return. Occasional dizziness noted prior to worsening wheezing and dyspnea,without aggravation despite the transient titration of torsemide. Patient remains noncompliant withCPAP therapy. Stable sacral wound noted by , without fevers or chills. No chest pain. No overt palpitations. No near syncope or syncope. No melena or hematochezia. History: Non-ischemic, congestive cardiomyopathy, with initial LVEF 20% Mild CAD by 04/29/2010 catheterization. Permanent atrial fibrillation. Patient initially hospitalized at [facility] from 04/25/2010 to 05/02/2010 with atrial fibrillation with a RVR and acute decompensated CHF. At that time he was treated with amiodarone and cardioversion with normalization of LV systolic function (20% to 55%). He had a couple of episodes (PAF 04/2012) and flutter (07/2013) and underwent cardioversion successfully. In December 2013 he presented with recurrent atrial fibrillation, with unsuccessful cardioversion resulting in discontinuation of amiodarone, changing to a rate control strategy. 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 GERD Chronic back pain, bilateral knee pain. Hematuria, bladder lesion, negative for malignancy. BPH, status post TURP, November 2023, followed by [facility] Tonsillectomy Adenoidectomy at age 9. Inguinal hernia repair. Appendectomy. Chronic venous insufficiency, status post successful right GSV Clarivein endovenous ablation by . Family History: No premature CAD and no history of cardiomyopathy. Mother at 76 with cirrhosis. Father with a CVA at 67. Brother with HTN. Social History: Prior smoker, quit in 1979 after smoking 1 ppd x 10 years. Rare ETOH. No illegal drug use. 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 Worked at [employer] x 10 years prior to retiring.. Remarried to Maria Esther. Resident of [facility] since October 08, 2023. Complete Review of Systems: See above. Otherwise negative or noncontributory. Review of patient's allergies indicates: No Known Allergies Current Outpatient Medications Medication Sig Dispense Refill MULTIVITAMINS PO TABS one daily ASPIRIN 81 MG PO CHEW take one tablet daily 100 Tab 3 DOCUSATE SODIUM 100 MG PO CAPS One pill by mouth daily for constipation 90 Cap 3 Acetaminophen 500 MG Oral Capsule Take 2 Capsules by mouth in the morning and 2 Capsules before bedtime. Lactulose 10 GM/15ML Oral Solution (Constulose) TAKE 15 MILLILITER BY MOUTH EVERY DAY IN THE MORNING AND TAKE 15 MILLILITER BY MOUTH BEFORE BEDTIME NEEDED FOR CONSTIPATION 240 mL 12 Levothyroxine Sodium 88 MCG Oral Tablet (Levoxyl) TAKE 1 TABLET DAILY FOR THYROID 90 Tablet 3 Ondansetron 4 MG Oral Tablet Disintegrating (Zofran) Place 1 Tablet on tongue every 8 hours as needed for Nausea. dissolve on tongue. 90 Tablet 1 Colchicine 0.6 MG Oral Tablet 2 tab at start of gout attack, 1 pill 1 hour later. (3 pills total per attack). Stop twice daily dosing. 12 Tablet 3 Mupirocin 2 % External Ointment (Bactroban) APPLY TOPICALLY TO AFFECTED AREA THREE TIMES A DAY FOR UP TO 14 DAYS (Patient taking differently: Apply 75 g topically to affected area 3 times a day as needed for Other (skin irritation to folds of skin).) 75 g 29 Vitamin D3 50 MCG (2000 UT) Oral Capsule Take 1 Capsule by mouth in the morning. Can take 2 of the 1,000 unit capsules. Digoxin 125 MCG Oral Tablet (Digox) Take 1 Tablet by mouth once a day on Thursday, Thursday, and Thursday only. Potassium Chloride ER 20 MEQ Oral Tablet Extended Release Take 1 Tablet by mouth in the morning. ProAir HFA 108 (90 Base) MCG/ACT Inhalation Aerosol Solution Inhale 2 Puffs by mouth 4 times a day as needed for Wheezing. Calcium Carbonate Antacid 500 MG Oral Tablet Chewable (Tums) Take 1 Tablet by mouth 2 times a day as needed for Heartburn. Fluticasone Propionate 50 MCG/ACT Nasal Suspension (Flonase) Administer 2 Sprays into nostril dailyas needed for Allergies or Other (or nasal congestion). Warfarin Sodium 2.5 MG Oral Tablet (Coumadin) Take 1 Tablet by mouth once a day on Thursday, Thursday, and Thursday only. Or as directed by anticoagulation clinic Finasteride 5 MG Oral Tablet (Proscar) Take 1 Tablet by mouth in the morning. Empagliflozin 10 MG Oral Tablet (Jardiance) Take 1 Tablet by mouth in the morning. 30 Tablet 11 Pantoprazole Sodium 40 MG Oral Tablet Delayed Release (Protonix) TAKE 1 TABLET BY MOUTH EVERY MORNING 30 MINUTES BEFORE THE FIRST MEAL OF THE DAY. DO NOT CRUSH, SPLIT OR CHEW THE TABLET. 90 Tablet 1 Polyethylene Glycol 3350 17 GM Oral Packet (MiraLax) Take 1 Packet by mouth in the morning. Warfarin Sodium 5 MG Oral Tablet (Coumadin) Take 1 Tablet by mouth once a day on Thursday, ,Thursday, and Thursday only. or as directed by anticoagulation clinic 90 Tablet 3 Metoprolol Succinate ER 50 MG Oral Tablet Extended Release 24 Hour (toPROL XL) TAKE 3 TABLETS IN THE MORNING AND 2 TABLETS IN THE EVENING 450 Tablet 1 Allopurinol 300 MG Oral Tablet (Zyloprim) Take 1 Tablet by mouth in the morning. 90 Tablet 1 metFORMIN HCl ER 500 MG Oral Tablet Extended Release 24 Hour (Glucophage XR) TAKE 1 TABLET EVERY MORNING AND 2 TABLETS WITH DINNER DAILY (DOSE INCREASE) 270 Tablet 1 Pravastatin Sodium 40 MG Oral Tablet (Pravachol) Take 1 Tablet by mouth at bedtime. 90 Tablet 1 Mirtazapine 15 MG Oral Tablet (Remeron) TAKE 1 TABLET BY MOUTH AT BEDTIME 30 Tablet 5 Famotidine 20 MG Oral Tablet (Pepcid) Take 1 Tablet by mouth in the morning. 90 Tablet 1 Alfuzosin HCl ER 10 MG Oral Tablet Extended Release 24 Hour (Uroxatral) TAKE 1 TABLET DAILY AFTER AMEAL 90 Tablet 3 traMADol HCl 50 MG Oral Tablet (Ultram) Take 1 Tablet by mouth 2 times a day as needed for Pain, Severe. 60 Tablet 0 Ketoconazole 2 % External Cream APPLY TOPICALLY TO AFFECTED AREA TWICE A DAY TO RASH ON FACE, UNDERCHEST AND GROIN 180 g 11 Spironolactone 25 MG Oral Tablet (Aldactone) Take 1 Tablet by mouth 2 times a day. 180 Tablet 3 Torsemide 20 MG Oral Tablet (Demadex) Take 2 Tablets by mouth 2 times a day. 360 Tablet 3 Blood Glucose Monitoring Suppl (Yi De ULTRA SYSTEM) W/DEVICE KIT Use up to 4/day - Type II diabetes- #E11.9 1 Kit 0 [employer] DELICA LANCETS 33G MISC Ck FS daily as needed E11.9 100 Each 5 HereOrThereuch Ultra Test In Vitro Strip (Glucose Blood) TEST DAILY DIRECTED 100 Strip 3 No current facility-administered medications for this visit. PHYSICAL EXAMINATION: BP 96/64 (BP Site: Left Arm, BP Position: Sitting) | Pulse 74 | Resp 20 | Wt 115.4 kg (254 lb 8 oz)| BMI 36.52 kg/m | BSA 2.39 m Examined in a wheelchair General: A&Ox3. NAD. Elevated BMI HENT: Normocephalic. Atraumatic. Eyes: PER. Conjunctiva pink, sclera clear. Neck: No overt JVD. Heart: Irregularly irregular at 80 bpm. Distant heart sounds. No murmurs appreciated. Lungs: Diminished. Decreased. No wheezes, rales, or rhonchi. Abdomen: Obese. +BS. Soft. Nontender. No masses or organomegaly. Extremities: 1+ indurated edema. No cellulitis. Stasis changes. No clubbing. No cyanosis. Limited neurological examination is without focal deficits. Data: Lower extremity arterial duplex on October 31, 2020 showed no evidence of lower extremity arterial stenosis. January 21, 2023 Lexiscan Interpretation Summary (as per Dr. Crenshaw): Gated SPECT imaging reveals normalmyocardial thickening and wall motion. The left ventricular ejection fraction was calculated to be 52%. Lexiscan nuclear cardiac stress test negative for ischemia. October 26, 2023 TTE Interpretation Summary (as per Dr. Ni): There was atrial fibrillation during the examination. The left ventricular cavity size is normal. The LV wall thickness is normal. There is mild diffuse left ventricular hypokinesis. The qualitative LV ejection fraction is 45-49% (mildlyreduced). The left ventricular diastolic function is abnormal by 2-D findings. The left atrium is mildly enlarged. Mild aortic valve sclerosis is present. Mild mitral regurgitation is present. Mild tricuspid regurgitation is present. Compared to prior study of October 08, 2022, there is no significant change March 06, 2024 TTE Interpretation Summary ([facility], Dr. Leal): Mild global hypokinesis of the left ventricle. Mildly reduced LV systolic function. LVEF 45 to 50%. Normal RV size and function. No significant valvular disease. April 20, 2024 EKG: Atrial fibrillation with premature ventricular or aberrantly conducted complexes, right superior axis deviation, nonspecific intraventricular block ASSESSMENT AND RECOMMENDATIONS/PLAN: Non-ischemic, congestive cardiomyopathy, with initial LVEF 20%. EF 45-50% via February 2024 TTE. Volumestatus: Hypervolemia. Options of management discussed with patient and . Sodium and fluid restrictions reiterated. Torsemide will be increased from 80 mg/day to 100 mg/day. Spironolactone will becontinued at 50 mg/day. Supplemental potassium will be increased from 20 mEq/day to 30 mEq/day. Follow-up metabolic panel to be obtained in 2 weeks. Prior use of metolazone notably resulted in hyponatremia. Patient encouraged once again to resume CPAP therapy. CAD. Mild nonobstructive via 04/29/2010 cardiac catheterization. Nuclear stress testing in January 2023was nonischemic. Continue appropriate medical management. Permanent atrial fibrillation. Continue rate control and chronic anticoagulation. Continue metoprolol and digoxin as presently prescribed. ? VT on Zio, versus atrial fibrillation with aberrancy. Asymptomatic. Lexiscan on 01/21/2023 was nonischemic. Continue beta-naomy therapy. Carotid artery disease. Mild disease observed in 2014, 2017, and February 2021. Hyperlipidemia. Hypertriglyceridemia. LDL cholesterol 58 mg/dL on 12/30/2023. Triglycerides 210 mg/dL. Continue pravastatin. Fenofibrate discontinued in September 2023 in an attempt to improve gastrointestinal issues. Cardiology follow-up in 2-3 months or as needed. ER with emergencies Aris Potter PA-C Department of Cardiology I spent a total of 30-39 minutes (exact time 30 mins) on the date of service in preparation, delivery, and documentation of the care provided to Brionna Bone excluding any time spent in the performance of separately billed services. This visit involved medical care services related to at least one serious condition or complex condition requiring ongoing care. This chart was completed in part utilizing [employer] Speech Voice Recognition Software. Grammatical errors, random word insertions, prounoun errors, and incomplete sentences are an occasional consequence of this system due to software l imitations, ambient noise, and hardware issues. Any formal questions or concerns about the content,text, or information contained within the body of this dictation should be directly addressed to the provider for clarification. * Melissa Irby CMA - 04/20/2024 1:05 PM EDT PRE - ADMINISTRATION DOCUMENTATION Are you experiencing any cold symptoms or fever? No Have you had Guillain-[place] Syndrome (an illness that causes paralysis) within the last 6 weeks? No Have you had the flu shot in the past? YES Have you ever had a reaction to the flu shot? No Melissa Irby CMA, 04/20/2024 1:05 PM Immunization Administration Documentation Time Out Procedure Performed: Yes Patient Identified (Ask Name/Date of ): Yes Does the patient have a fever greater than 101 degrees today? No Patient allergic to latex? No VFC Stock: No Immunization(s) verified: Yes, Immunization Name: Flu, VIS Sheet(s) given: Yes Verified Side and Site: Yes Verified Shot(s) with Parent(s)/Patient: Yes documented in this encounter Procedure Notes * Jorden Leal DO - 04/20/2024 1:19 PM EDTAssociated Order(s): EKG REASON FOR STUDY: a fib;a fib CONCLUSIONS: Atrial fibrillation with premature ventricular or aberrantly conducted complexes Right superior axis deviation Nonspecific intraventricular conduction block Abnormal ECG When compared with ECG of 12-Oct-2023 08:10, QRS duration has increased Non-specific change in ST segment in Inferior leads T wave inversion no longer evident in Lateral leads QT has lengthened Ventricular Rate: 82 Atrial Rate: 111 QRS Duration: 146 QT/QTc: 422/493 ms P-R-T [place]: 0 : 203 : 48 degrees documented in this encounter Nursing Notes * Melissa Irby CMA - 04/20/2024 1:04 PM EDT Examination Room: 3 Name: Brionna Bone Date of : (1940). Reason for Visit: follow up Interim Hospitalization(s): denies Problems/Concerns: LE edema; reports wheezing last week and "when he walks he is huffing and puffing"; dizziness when walking last week Chest Pain/SOB: denies [facility] Discussed: Not applicable [facility] is a way you can talk to your provider online through e-mail. Would you like to sign up? I can activate it for you? ALREADY ACTIVE Patient was instructed to not get up on the exam table until directed and assisted by their provider; patient is to remain seated in the chair/ wheelchair/ exam table for fall prevention and safety reasons. Patient is aware to have assistance to step down off exam table with personnel. Patient voiced full comprehension of instructions. documented in this encounter Plan of Treatment Upcoming Encounters Date Type Department Care Team (Late st Contact Info) Description 04/22/2024 10:10 AM EDT Anticoagulation Pharmacy, [address] [place] [address] [place] [address] 07/13/2024 8:20 AM EST Office Visit Family Practice [facility] [address] [place] [address] Ch[place] Scherer MD [address] [place] [id number] 07/25/2024 11:00 AM EST PulmDiagnostic Sleep Lab [facility] [address] [place] [address] [facility], Sleep Med Home Study [place] [address] [address] [place] [address] 08/04/2024 9:00 AM EST Office Visit Gastroenterology, [facility] [address] [place] [address] Koko Shahid MD [address] [place] [address] 10/19/2024 7:30 AM EST Office Visit Sleep Disorders Ctr [facility] [address] [place] [id number] Janeen Montaño CRNP [address] [place] [address] Health Maintenance Due Date Last Done Comments [...] Procedure Name Priority Date/Time Associated Diagnosis Comments IL ECG ROUTINE ECG W/LEAST 12 LDS I&R ONLY Routine 04/20/2024 1:19 PM EDT Permanent atrial fibrillation (HCC) documented in this encounter Results * EKG (04/20/2024 1:19 PM EDT) 04/20/2024 1:19 PM EDT Narrative Procedure Note Jorden Leal, - 04/20/2024 1:19 PM EDT REASON FOR STUDY: a fib;a fib CONCLUSIONS: Atrial fibrillation with premature ventricular or aberrantly conductedcomplexes Right superior axis deviation Nonspecific intraventricular conduction block Abnormal ECG When compared with ECG of 12-Oct-2023 08:10, QRS duration has increased Non-specific change in ST segment in Inferior leads T wave inversion no longer evident in Lateral leads QT has lengthened Ventricular Rate: 82 Atrial Rate: 111 QRS Duration: 146 QT/QTc: 422/493 ms P-R-T [place]: 0 : 203 : 48 degrees Aris Potter PA-C EKG [facility] documented in this encounter Visit Diagnoses Diagnosis Need for prophylactic vaccination and inoculation against influenza- Primary Permanent atrial fibrillation (HCC) Atrial fibrillation Congestive cardiomyopathy (HCC) Other primary cardiomyopathies Heart failure, systolic, with acute decompensation (HCC) Acute on chronic systolic heart failure documented in this encounter Advance Directives Documents on File Type Date Recorded Patient Pesticide Use Medical Coordinator Expl anation SALUD 10/01/2023 8:31 AM SALUD (Pierce ited DNR) Advance Directives and Living Will 03/11/2017 LIVING WILL Power of Head Buyer Tobacco 03/11/2017 POWER OF A TTORNEY [facility] Care Teams Career Development Facilitator Relationship Specialty Start Date End Date Chico Scherer MD [address] [place] [address] PCP - General Family Medicine 08/27/16 documented as of this encounter
--- OUTSIDE RECORDS SUMMARY | 2024-05-04 20:41 | External Medical Summary | Summary of Care ---
Author Name Unknown Organization [facility] Address [address] [place] [address] Phone [phone] Care Team Providers Care Extension Specialist Name Role Phone Chico Scherer MD Primary Care Provider + Reason for Visit * Reason Onset Date Comments Test Results 01/15/2024 Encounter Details Date Type Department Care Team (Late st Contact Info) Description 01/15/2024 Telephone Cardiology, [facility] [address] [facility] [place] [address] Aris Potter PA-C [address] [employer] [facility] [place] [address] Test Results Allergies No known active allergiesdocumented as of this encounter (statuses as of 04/15/2024) Medications Medication Sig Dispensed Refills Start Date [...] goal of less than 7.0% ([facility]) Ck FS daily as needed [...] DAILY DIRECTED 100 Strip 3 01/02/2024 Active documented as of this encounter (statuses as of 04/15/2024) Active Problems Problem Noted Date Diagnosed Date Leg ulcer, right, limited to breakdown of skin 0 12/30/2023 Lumbar degenerative disc disease 10/15/2023 Symptomatic care patient 10/15/2023 Adult failure to thrive 10/15/2023 Permanent atrial fibrillation 03/14/2020 Secondary polycythemia 03/14/2020 DNR (do not resuscitate) 05/24/2019 Overview: 05/24/19 signed/scanned [facility] [employer]. Redone 02/14/20. Coronary artery disease invo lving [place] coronary artery of [place] heart without angina pectoris 04/19/2019 Dyslipidemia 04/11/2019 Acquired hypothyroidism 04/11/2019 Venous stasis dermatitis 12/10/2018 Obesity, Class I, BMI 30.0-34.9 (see actual BMI) 05/21/2018 DM type 2 with diabetic peripheral neuropathy Well adult exam 04/22/2017 Overview: 11/07 EGD [facility] mod gastritis chronic. 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 BMP ordered. ----- Message from Aris Potter sent at 01/14/2024 1:13 PM EDT ----- Labs raise concern for dehydration following addition of Jardiance. Increase free water intake. Recheck a basic metabolic panel in 10 to 14 days. If persistent or progressive despite increased oral water intake will need to reduce diuretics. documented in this encounter Plan of Treatment Upcoming Encounters Date Type Department Care Team (Late st Contact Info) Description 04/19/2024 9:00 AM EDT Office Visit Sleep Disorders Ctr [facility] [address] [place] [address] Janeen Montaño CRNP [address] [place] [address] 04/22/2024 10:10 AM EDT Anticoagulation Pharmacy, [facility] [address] [place] [address] [facility] [address] [place] [address] 06/13/2024 2:30 PM EDT Office Visit Cardiology, [facility] [address] [place] [address] Aris Potter PA-C [address] [place] [address] 07/13/2024 8:20 AM EST Office Visit Family Practice [facility] [address] [place] [address] Chico Scherer MD [address] [place] [address] 08/04/2024 9:00 AM EST Office Visit Gastroenterology, [facility] [address] [place] [address] Koko Shahid MD [address] [place] [address] Health Maintenance Due Date Last Done Comments Adult Wellness Visit 02/11/2023 02/11/2022 COVID-19 Vaccine (2022-2 4 season) 2023 02/28/2022, [...] as of this encounter Results * (ABNORMAL) BASIC METABOLIC PANEL (01/28/2024 9:35 AM EDT) BUN 45(H) 6 - 20 mg/dL 01/28/2024 10:46 AM EDT [facility] [place] 57-10 Creatinine 1.6(H) 0.6 - 1.2 mg/dL 01/28/2024 10:46 AM EDT [facility] [place] 57[facility]10 Estimated Glomerular Filtration Rate 44(L) >=60 mL/min 01/28/2024 10:46 AM EDT [facility] [place] 57-10 Comment:eGFR is calculated b ased on the CKD-EPI 2020 equation Sodium 134(L) 135 - 146 mmol/L 01/28/2024 10:46 AM EDT [facility] [place] 57[facility]10 Potassium 4.3 3.5 - 5.1 mmol/L 01/28/2024 10:46 AM EDT [facility] [place] 57-10 Chloride 94(L) 98 - 107 mmol/L 01/28/2024 10:46 AM EDT [facility] [place] 57-10 CO2 27 22 - 32 mmol/L 01/28/2024 10:46 AM EDT [facility] [place] 57-10 Anion Gap 13 7 - 15 mmol/L 01/28/2024 10:46 AM EDT [facility] [place] 57-10 Glucose 184(H) 70 - 120 mg/dL 01/28/2024 10:46 AM EDT [facility] [place] 57-10 Calcium 9.6 8.4 - 10.2 mg/dL 01/28/2024 10:46 AM EDT [facility] [place] 57-10 Blood Venous blood specimen / Unknown Venipuncture / Unknown 01/28/2024 9:35 AM EDT 01/28/2024 9:35 AM EDT Aris Potter PA-C LAB BLOOD ORDERABLE S [facility] [place] 57-10 132 [facility] [place] [address] documented in this encounter Visit Diagnoses Diagnosis Encounter for monitoring diuretic therapy- Primary Encounter for therapeutic drug monitoring documented in this encounter Advance Directives Documents on File Type Date Recorded Patient Securities Research Analyst Expl anation POLST 10/01/2023 8:31 AM POLST (Pierce ited DNR) Advance Directives and Living Will 03/11/2017 LIVING WILL Power of Airport Engineer 03/11/2017 POWER OF A [facility]LY [facility] Care Teams Extension Specialist Relationship Specialty Start Date End Date Chico Scherer MD [address] [place] [address] PCP - General Family Medicine 08/27/16 documented as of this encounter
--- OUTSIDE RECORDS SUMMARY | 2024-05-04 20:41 | External Medical Summary | Summary of Care ---
Author Name Unknown Organization [facility] Address [address] [place] [address] Phone [phone] Care Team Providers Care Distillation Operator Helper Name Role Phone Chico Scherer MD Primary Care Provider + Reason for Visit * Reason Comments Follow Up Return sleep. JOHN. C PAP. Not using . Per patient not working right. Encounter Details Date Type Department Care Team (Late st Contact Info) Description 04/19/2024 9:00 AM EDT Office Visit Sleep Disorders [facility] [address] Janeen Montaño CRNP [address] [facility] [address] Obstructive sleep apnea* Allergies No known active allergiesdocumented as of this encounter (statuses as of 04/19/2024) Medications Medication Sig Dispensed Refills Start Date [...] #E11.9 1 Kit 0 09/13/2015 Active ONETOUCH DELICA LANCETS 33G MISCIndications:Typ e 2 diabetes mellitus with hemoglobin A1c goal of less than 7.0% ([facility]) Ck FS daily as needed [...] the morning. 30 Tablet 11 12/30/2023 Active [employer] MedicalTouch Ultra Test In Vitro Strip (Glucose Blood)Indications:T [...] day. 180 Tablet 3 04/05/2024 Active Torsemide 20 MG Oral Tablet (Demadex)Indication s:Permanent atrial fibrillation (HCC),Congestive cardiomyopathy (HCC),Heart failure, systolic, with acute decompensation (HCC) Take 2 Tablets by mouth 2 times a day. 360 Tablet 3 04/05/2024 Active documented as of this encounter (statuses as of 04/19/2024) Active Problems Problem Noted Date Diagnosed Date Leg ulcer, right, limited to breakdown of skin 0 12/30/2023 Lumbar degenerative disc disease 10/15/2023 Symptomatic care patient 10/15/2023 Adult failure to thrive 10/15/2023 Permanent atrial fibrillation 03/14/2020 Secondary polycythemia 03/14/2020 DNR (do not resuscitate) 05/24/2019 Overview: 05/24/19 signed/scanned [facility]. Redone 02/14/20. Coronary artery disease invo lving cahto coronary artery of cahto heart without angina pectoris 04/19/2019 Dyslipidemia 04/11/2019 [...] as of this encounter (statuses as of 04/19/2024) Resolved Problems Problem Noted Date Diagnosed Date Resolved Date Pressure injury of buttock, stage 2 09/21/2023 11/11/2023 Morbid obesity due to excess calories 03/12/2023 10/15/2023 Abrasion 12/12/2022 08/24/2023 Acute right ankle pain 12/12/202208/24 Right elbow pain 12/12/2022 08/24/2023 Acute pain of right knee 12/12/202203/2024 Fall 12/12/2022 08/24/2023 Chronic idiopathic constipation 10/07/2021 08/24/2023 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 0702/2023 Gastroesophageal reflux dise ase with esophagitis 03/14/2020 [...] 05/02/2010 03/14/2020 Anticoagulation management encounter 05/02/2010 03/14/2020 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 05/02/2010 [...] as of this encounter (statuses as of 04/19/2024) Immunizations Name Administration Dates Next Due COVID-19 [...] Sign Reading Time Taken Comments Blood Pressure 98/60 04/19/2024 9:04 AM EDT Pulse 82 04/19/2024 9:04 AM EDT Temperature 36.2 C (97.2 F) 04/19/2024 9:04 AM ED T Respiratory Rate 16 04/19/2024 9:04 AM EDT Oxygen Saturation 99% 04/19/2024 9:04 AM EDT Inhaled Oxygen Concentration - - Weight 114.3 kg (252 lb) 04/19/2024 9:04 AM EDT Height 177.8 cm (5' 10") 04/19/2024 9:04 AM EDT Body Mass Index 36.16 04/19/2024 9:04 AM EDT documented in this encounter Progress Notes * Janeen Montaño CRNP - 04/19/2024 9:11 AM EDT [facility] Brionna Bone is a 83 year old male seen today for 6 month follow-up. -Dx mid -PAP Titration 06/2012 (wt 325 lb): CPAP : tried FFM x1 night -Declined titration testing -Noct ox CPAP 12 cm H2O 02/10/2023 (wt 282): SpO2 mendel 85% with 0.5 mins <89%, test time 6 hrs Interim History: Hasn't used CPAP since the last visit, no reason provided. Wants a machine that turns off when he takes his mask off like his former Lian unit. Doesn't feel ready to go to bed in the evenings when prompted by his , often napping in his recliner. May not get into bed until 0530. Recent hospitalization with acute on chronic heart failure with congestive cardiomyopathy. Compliance Data: Report date: last 30 days ending 04/10/2024 % total days used: 3 % days used > 4 hours: 0 Average hours per day used: 1 minute Large leak: 0 L/min rAHI: 0 Equipment: DME Provider: Debbie Device: 2theloo 2 Settings: 12 cmH20, ramp off Interface Type: nasal [place] Sleepiness Scale Question 04/19/2024 9:03 AM EDT - Filed by Patient What is the chance you will doze off in the following situation? Sitting and reading High chance of dozing Watching TV High chance of dozing Sitting inactive in a public place, such as a theater or meeting Slight chance of dozing As a passenger in a car for an hour without a break Moderate chance of dozing Lying down to rest in the afternoon when circumstances permit Moderate chance of dozing When sitting and talking to someone Slight chance of dozing When sitting quietly after lunch without alcohol Moderate chance of dozing In a car, while stopped for a few minutes in traffic No chance of dozing Score (range: 0 - 24) 14 Problem List: Patient Active Problem List Diagnosis Obstructive sleep apnea HTN, goal below 130/80 Congestive cardiomyopathy (HCC) Type 2 diabetes mellitus with hemoglobin A1c goal of less than 8.0% ([facility]) Gouty arthropathy Well adult exam DM type 2 with diabetic peripheral neuropathy (HCC) Obesity, Class I, BMI 30.0-34.9 (see actual BMI) Venous stasis dermatitis Dyslipidemia Acquired hypothyroidism Coronary artery disease involving cahto coronary artery of cahto heart without angina pectoris DNR (do not resuscitate) Permanent atrial fibrillation (HCC) Secondary polycythemia Lumbar degenerative disc disease Symptomatic care patient Adult failure to thrive Leg ulcer, right, limited to breakdown of skin (HCC) Current Medications: Current Outpatient Medications Medication Sig Dispense Refill Spironolactone 25 MG Oral Tablet (Aldactone) Take 1 Tablet by mouth 2 times a day. 180 Tablet 3 Torsemide 20 MG Oral Tablet (Demadex) Take 2 Tablets by mouth 2 times a day. 360 Tablet 3 Ketoconazole 2 % External Cream APPLY TOPICALLY TO AFFECTED AREA TWICE A DAY TO RASH ON FACE, UNDERCHEST AND GROIN 180 g 11 traMADol HCl 50 MG Oral Tablet (Ultram) Take 1 Tablet by mouth 2 times a day as needed for Pain, Severe. 60 Tablet 0 Alfuzosin HCl ER 10 MG Oral Tablet Extended Release 24 Hour (Uroxatral) TAKE 1 TABLET DAILY AFTER AMEAL 90 Tablet 3 Famotidine 20 MG Oral Tablet (Pepcid) Take 1 Tablet by mouth in the morning. 90 Tablet 1 Mirtazapine 15 MG Oral Tablet (Remeron) TAKE 1 TABLET BY MOUTH AT BEDTIME 30 Tablet 5 Allopurinol 300 MG Oral Tablet (Zyloprim) Take 1 Tablet by mouth in the morning. 90 Tablet 1 metFORMIN HCl ER 500 MG Oral Tablet Extended Release 24 Hour (Glucophage XR) TAKE 1 TABLET EVERY MORNING AND 2 TABLETS WITH DINNER DAILY (DOSE INCREASE) 270 Tablet 1 Metoprolol Succinate ER 50 MG Oral Tablet Extended Release 24 Hour (toPROL XL) TAKE 3 TABLETS IN THE MORNING AND 2 TABLETS IN THE EVENING 450 Tablet 1 Pravastatin Sodium 40 MG Oral Tablet (Pravachol) Take 1 Tablet by mouth at bedtime. 90 Tablet 1 Polyethylene Glycol 3350 17 GM Oral Packet (MiraLax) Take 1 Packet by mouth in the morning. Warfarin Sodium 5 MG Oral Tablet (Coumadin) Take 1 Tablet by mouth once a day on Thursday, ,Thursday, and Thursday only. or as directed by anticoagulation clinic 90 Tablet 3 Pantoprazole Sodium 40 MG Oral Tablet Delayed Release (Protonix) TAKE 1 TABLET BY MOUTH EVERY MORNING 30 MINUTES BEFORE THE FIRST MEAL OF THE DAY. DO NOT CRUSH, SPLIT OR CHEW THE TABLET. 90 Tablet 1 OneTouch Ultra Test In Vitro Strip (Glucose Blood) TEST DAILY DIRECTED 100 Strip 3 Empagliflozin 10 MG Oral Tablet (Jardiance) Take 1 Tablet by mouth in the morning. 30 Tablet 11 Finasteride 5 MG Oral Tablet (Proscar) Take [...] only. Or as directed by anticoagulation clinic Mupirocin 2 % External Ointment (Bactroban) APPLY [...] Stop twice daily dosing. 12 Tablet 3 Ondansetron 4 MG Oral Tablet Disintegrating (Zofran) Place 1 Tablet on tongue every 8 hours as needed for Nausea. dissolve on tongue. 90 Tablet 1 Levothyroxine Sodium 88 MCG Oral Tablet (Levoxyl) TAKE 1 TABLET DAILY FOR THYROID 90 Tablet 3 Lactulose 10 GM/15ML Oral Solution (Constulose) TAKE 15 MILLILITER BY MOUTH EVERY DAY IN THE MORNING AND TAKE 15 MILLILITER BY MOUTH BEFORE BEDTIME NEEDED FOR CONSTIPATION 240 mL 12 Acetaminophen 500 MG Oral Capsule Take 2 Capsules by mouth in the morning and 2 Capsules before bedtime. [employer] DELICA LANCETS 33G MISC Ck FS daily as needed E11.9 100 Each 5 Blood Glucose Monitoring Suppl ([employer] ULTRA SYSTEM) W/DEVICE KIT Use up to 4/day - Type II diabetes- #E11.9 1 Kit 0 DOCUSATE SODIUM 100 MG PO CAPS One pill by mouth daily for constipation 90 Cap 3 ASPIRIN 81 MG PO CHEW take one tablet daily 100 Tab 3 MULTIVITAMINS PO TABS one daily No current facility-administered medications for this visit. Physical Exam: BP 98/60 | Pulse 82 | Temp 36.2 C (97.2 F) | Resp 16 | Ht 1.778 m (5' 10") | Wt 114.3 kg (252 lb) | SpO2 99% | BMI 36.16 kg/m | BSA 2.38 m Constitutional: Alert, oriented and in no acute distress, seated in wheelchair, accompanied by Chest: Normal respiratory effort at rest Cardiac: Irregularly irregular Psych: Flat affect Assessment & Plan: Encounter Diagnoses Name Primary? Obstructive sleep apnea Yes Reviewed risks of untreated JOHN in relation to cardiac status He is agreeable to restarting CPAP - advised to use during all periods of sleep Encouraged routine sleep schedule, getting into bed every evening and placing CPAP. Alternative is to wear while in recliner. If unable to meet compliance, retesting with HSAT ordered. Requesting replacement CPAP as his unit was last issued >5 years ago and he is not happy with how the current unit functions. Follow-up with Sleep Medicine with restarting PAP therapy. DENG Mckeon [facility] I spent a total of 30-39 minutes (exact time 30 mins) on the date of service in preparation, delivery, and documentation of the care provided to Brionna Bone excluding any time spent in the performance of separately billed services. Please verify the following with the patient before ordering WatchPAT study: Does patient have Wifi? Yes Does patient have smart phone? Yes Do they have acrylic nails or nail mongolian? No: Do they have a pacemaker? No Are they on alphablockers? Please list which med is the alphablocker: yes: need a washout of medication for 3 hours Mirtazapine (continue finasteride in the morning) What is the phone number of the cell phone they will be using? documented in this encounter Nursing Notes * Anna Frias LPN - 04/19/2024 9:06 AM EDT Chief Complaint Patient presents with Follow Up Return sleep. JOHN. CPAP. Not using . Per patient not working right. [place] Sleepiness Scale Question 04/19/2024 9:03 AM EDT - Filed by Patient What is the chance you will doze off in the following situation? Sitting and reading High chance of dozing Watching TV High chance of dozing Sitting inactive in a public place, such as a theater or meeting Slight chance of dozing As a passenger in a car for an hour without a break Moderate chance of dozing Lying down to rest in the afternoon when circumstances permit Moderate chance of dozing When sitting and talking to someone Slight chance of dozing When sitting quietly after lunch without alcohol Moderate chance of dozing In a car, while stopped for a few minutes in traffic No chance of dozing Score (range: 0 - 24) 14 documented in this encounter Plan of Treatment Upcoming Encounters Date Type Department Care Team (Late st Contact Info) Description 04/22/2024 10:10 AM EDT Anticoagulation Pharmacy, [facility] [address] [place] [address] [email or web address] [address] [place] [address] 06/13/2024 2:30 PM EDT Office Visit Cardiology, [facility] [address] [place] [address] Aris Potter [place] [address] [place] [address] 07/13/2024 8:20 AM EST Office Visit Family Practice [facility] [address] [place] [address] Chico Scherer MD [address] [place] [address] 07/25/2024 11:00 AM EST PulmDiagnostic Sleep Lab [facility] [address] [place] [address] [facility], Sleep Med Home Study [facility] [[email or web address]] [address] [place] [address] 08/04/2024 9:00 AM EST Office Visit Gastroenterology, [facility] [address] [place] [address] Koko Shahid MD [address] [place] [address] 10/19/2024 7:30 AM EST Office Visit Sleep Disorders Ctr [facility] [address] [place] [phone] Janeen Montaño CRNP [address] [place] [address] Scheduled Orders Name Type Priority Associated Diagnoses Orde r Schedule TIMED SLEEP STUDY, UNATTEND, HR/O2 SAT/RESP Procedures Routine Obstructive sleep apnea Ordered: 04/19/2024 Health Maintenance Due Date Last Done Comments Adult Wellness Visit 02/11/2023 02/11/2022 COVID-19 Vaccine (2022- 4 season) 2024 02/28/2022, 07/27/2021, 11/03/2020, Additional history exists Influenza [...] as of this encounter Visit Diagnoses Diagnosis Obstructive sleep apnea- Primary Obstructive sleep apnea (adult) (pediatric) documented in this encounter Advance Directives Documents on File Type Date Recorded 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
[2024-05-04] MEDS ORDERED: SPIRONOLACTONE 25 MG TAB PO SCH (21:00)
[2024-05-04] MEDS: MIRTAZAPINE TAB 15 MG TAB PO SCH (21:03)
[2024-05-04] MEDS: TAMSULOSIN HCL 0.4 MG CAP PO SCH (21:03)
[2024-05-04] MEDS: PRAVASTATIN SOD 40 MG TAB PO SCH (21:03)
[2024-05-04] MEDS: METOPROLOL SUCC 50MG EXT REL TAB PO SCH (21:03)
[2024-05-04] MEDS: ACETAMINOPHEN 325 MG TAB PO PRN (21:04)
[2024-05-04] MEDS: traMADol HCL 50 MG TABLET PO SCH (21:04)
[2024-05-04 21:05] LABS: Appearance Urine Clear (Clear); Bilirubin Urine Negative (Negative); Blood Urine Negative (Negative); Color Urine Yellow; Glucose Urine UA 3+ (Negative); Ketones Urine Negative (Negative); Leukocyte Esterase Urine Negative (Negative); Nitrite Urine Negative (Negative); Protein Urine Negative (Negative); Specific Gravity Urine 1.016 (1.000-1.030); Urobilinogen Urine Negative (Negative)
[2024-05-05] MEDS: LEVOTHYROXINE SODIUM 88 MCG TABLET PO SCH (05:44)
--- NOTE | 2024-05-05 06:30 | Electrocardiogram Report ---
Test Reason : Blood Pressure : */* mmHG Vent. Rate : 104 BPM Atrial Rate : * BPM P-R Int : * ms QRS Dur : 150 ms QT Int : 342 ms P-R-T Axes : * 160 27 degrees QTcB Int : 449 ms Atrial fibrillation with rapid ventricular response Left bundle branch block Abnormal ECG When compared with ECG of 08-Mar-2024 18:13, HR has decreased Confirmed by Sheng Aguillon ([id number]) on 05/05/2024 6:29:56 AM Referred By: [facility] Confirmed By: Sheng Aguillon
[2024-05-05 07:19] LABS: Hematocrit (blood only) 42.1 % (42.0-52.0); Hemoglobin 13.6 g/dl (14.0-18.0); Mean Corpuscular Hemoglobin 29.7 pg (25.0-34.0); Mean Corpuscular Hgb Conc 32.3 g/dL (32.0-36.0); Mean Corpuscular Volume 91.9 fL (80.0-100.0); Mean Platelet Volume 11.5 fL (9.4-12.4); Platelet Count 186 K/uL (130-400); RDW Coefficient of Variation 17.9 % (11.5-14.5); RDW Standard Deviation 59.1 fL (36.4-46.3); Red Blood Count 4.58 M/uL (4.70-6.10); White Blood Count 13.84 K/ul (4.8-10.8)
[2024-05-05 07:36] LABS: BUN Creatinine Ratio 33.6 (10-20); Calcium 9.3 mg/dl (8.6-10.3); Creatinine Clr Calc Pharmacy 53.1 ml/min; Est GFR (African American) 56.4 ml/min; Est GFR (Non-African American) 48.6 ml/min; Potassium 4.4 mmol/L (3.5-5.1)
[2024-05-05 07:43] LABS: INR 1.7 (0.9-1.1); Prothrombin Time 17.4 Seconds (9.0-12.0)
--- NOTE | 2024-05-05 08:34 | Cardiology Consultation ---
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 Right > Left pleural effusion on chest xray/CT scan. Pulm consulted to consider right sided thoracentesis. In the meantime, he has received several doses of Furosemide 40 mg IV. Unfortunately outputs have not been monitored closely. Weight appears to be trending downward. Increase furosemide to 40 mg IV BID today. Continue spironolactone 25 mg BID (home dose) Monitor renal function, electrolytes Daily weight with standing scale requested. In regards to afib RVR. His rates were controlled overnight and more elevated this morning, particularly when patient was agitated about his room being hot. He just received morning metoprolol 150 mg in AM. Continue 100 mg at night Recheck digoxin level Only taking 125 mcg //. If low, will consider additional dose today Continue coumadin for INR goal of 2.0-3.0. INR is 1.7 today. Coumadin on hold due to possible thoracentesis. Continue ASA and statin. Further recommendations pending evaluation/discussion with Dr. Leal as well as patient's response to diuretics and above med adjustments. Case discussed with Dr. Leal I spent a total of 60 minutes on the date of service in preparation, delivery, and documentation of the care provided to this patient, excluding any time spent in the performance of separately billed services. Merna Gonzalez PA-C Department of Cardiology, [facility] This chart was completed in part utilizing Speech Voice Recognition Software. Grammatical errors, random word insertions, pronoun errors, and incomplete sente nces are an occasional consequence of this system due to software limitations, ambient noise, and hardware issues. Any formal questions or concerns about the content, text, or information contained within the body of this dictation should be directly addressed to the provider for clarification. Supervising Physician Co-Signing Physician Notes Attending attestation: Case reviewed with the advanced practitioner. I have personally performed a history and physical examination on the patient. I have reviewed the advanced practitioner's documentation on the date of service referenced in note, and I agree with, and take responsibility for the plan of care. Agree with consideration of a right thoracentesis given persistent right pleural effusion despite outpatient titration of oral diuretics. If Coumadin needs to be held, can consider heparin bridge. Historical and most recent EKGs consistent with rate related IVCD versus incomplete left bundle branch block, relatively unchanged. I spent a total of 20 minutes coordinating, documenting, and providing care for this patient excluding time spent in the performance of separately billed services or time spent by another provider. Jorden Leal DO History of Present Illness Reason for Consultation: Acute on chronic HFrEF Requesting Physician: [facility] Hospitalist Attending Physician: Dr. Leal History of Present Illness Patient is a 83 year old male who presented to [facility] with complaints of worsening SOB, edema, weight gain. Known to [facility] cardiology, most recent clinic visit on 04/20/24 with Naresh Potter PA-C History includes: 1. Non-ischemic, congestive cardiomyopathy, with initial LVEF 20%, most recent echo with LVEF 45-50% in February 2024 with only mild global hypokinesis 2. Mild CAD by 04/29/2010 catheterization. 3. Permanent atrial fibrillation after failed cardioversion, failed amiodarone. ongoing rate control strategy with metoprolol, digoxin, and coumadin for anticoagulation 4. Carotid artery disease 5. 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 Hypothyroidism 7. Morbid obesity 8. JOHN with CPAP therapy (recent non compliance) 9. Polycythemia, secondary 10. Hypertension 11. Hyperlipidemia 12. Hepatic steatosis 13. Chronic venous insufficiency - with prior right GSV endovenous ablation with Dr. Maddox 14. Hematuria, bladder lesion, negative for malignancy. BPH, status post TURP, November 2023, followed by [facility] Patient hospitalized at [facility] March 05, 2024 to March 09, 2024 with complaints of increased shortness of breath and cough x3 days, acute decompensated heart failure, HFrEF, with associated right greater than left pleural effusions. Patient treated with IV furosemide 80 mg twice per day. Following IV diuresis patient was transitioned to oral torsemide at 40 mg in the morning and 20 mg in the afternoon (prior to arrival diuretic dosing was furosemide 80 AM, 40 PM). At cardio follow up on 04/20 with Naresh Potter, patient presented with ongoing SOB, weight gain and findings of hypervolemia. Torsemide was increased from 80 to 100 mg daily. Spironolactone was continued to 25 mg BID. Patient presented yesterday with concerns regarding worsening SOB, weight gain and edema. On admission, chest xray and chest CT demonstrating Right > Left pleural effusion. Started on Furosemide 40 mg IV. Has received several doses thus far. EKG demonstrating afib RVR. Chronic afib noted. No ischemic changes. HS troponin negative x1. He received several doses of IV metoprolol for rate control and oral home dose metoprolol was resumed at 150 mg in AM and 100 mg in PM. Pulm has been consulted for possible right sided thoracentesis. At time of consult, patient reports feeling "hot". The thermostat has been turned the wrong way.. He is hot/flushed and HR has been high over the last hour. Maintenance fixed thermostat and starting to cool off. HR trending down. He is a rather poor historian. Does not know why he came to the hospital. Wants to go home. Ongoing LE edema noted. Mild conversational dyspnea. no chest pain. No sense of palpitations or tachypalpitations. Allergies Allergy/AdvReac Type Severity Reaction Status Date / Time adhesive AdvReac Intermediate sensitive Verified 03/06/24 00:25 skin to strong adhesives Home Medications Medication Instructions Recorded Confirmed Type alfuzosin 10 mg tablet,extended 10 mg PO QPM 09/29/18 05/04/24 History release 24 hr allopurinol 300 mg tablet 300 mg PO QAM 09/29/18 05/04/24 History cholecalciferol (vitamin D3) 25 2,000 units PO QAM 09/29/18 05/04/24 History mcg (1,000 unit) tablet (Vitamin D3) colchicine 0.6 mg tablet 0.6 mg PO UD PRN gout flare 09/29/18 05/04/24 History digoxin 250 mcg (0.25 mg) tablet 125 mcg PO 3XWK 09/29/18 05/04/24 History fluticasone propionate 50 2 spray intranasal BID PRN Nasal 09/29/18 05/04/24 History mcg/actuation nasal Congestion spray,suspension (Flonase Allergy Relief) levothyroxine 88 mcg tablet 88 mcg PO QAM 09/29/18 05/04/24 History metoprolol succinate 50 mg See Rx Instructions .Route .COMPLEX 09/29/18 05/04/24 History tablet,extended release 24 hr multivitamin 1 tab PO QAM 09/29/18 05/04/24 History potassium chloride 20 mEq 30 meq PO QAM 09/29/18 05/04/24 History tablet,extended release(part/cryst) pravastatin 40 mg tablet 40 mg PO HS 09/29/18 05/04/24 History tramadol 50 mg tablet 50 mg PO BID 09/29/18 05/04/24 History warfarin 5 mg tablet See Rx Instructions .Route .COMPLEX 09/29/18 05/04/24 History triamcinolone acetonide 0.1 % 1 applic topical BID PRN Skin 06/18/21 05/04/24 History topical cream Irritation mupirocin 2 % topical ointment 1 applic topical BID PRN Skin 12/06/21 05/04/24 History Irritation pantoprazole 40 mg tablet,delayed 40 mg PO QAM 08/15/23 05/04/24 History release acetaminophen 500 mg capsule 1,000 mg PO Q6H PRN Pain 10/20/23 05/04/24 History calcium carbonate (Calcium Antacid) 400 mg PO BID PRN gerd 10/20/23 05/04/24 History famotidine 20 mg tablet 20 mg PO QAM 10/20/23 05/04/24 History finasteride 5 mg tablet 5 mg PO QAM 10/20/23 05/04/24 History lactulose 10 gram/15 mL oral 10 g PO BID PRN Constipation 10/20/23 05/04/24 History solution mirtazapine 15 mg tablet 15 mg PO HS 10/20/23 05/04/24 History naloxone 4 mg/actuation nasal spray 4 mg intranasal UD PRN overdose 10/20/23 05/04/24 History ondansetron HCl 4 mg tablet 4 mg PO Q8H PRN Nausea 10/20/23 05/04/24 History sodium chloride 0.65 % nasal spray 1 spray intranasal BID PRN Dry 10/20/2304/17 History aerosol (Saline Mist) Nasal Passages aspirin 81 mg tablet,delayed 81 mg PO QAM 10/21/23 05/04/24 History release sennosides 8.6 mg capsule (senna) 8.6 mg PO BID PRN constipation #30 10/21/23 05/04/24 Rx caps polyethylene glycol 3350 17 17 g PO DAILY PRN Constipation 11/20/23 05/04/24 History gram/dose oral powder (Miralax) metformin 500 mg tablet,extended See Rx Instructions .Route .COMPLEX 01/01/24 05/04/24 History release 24 hr spironolactone 25 mg tablet 25 mg PO BID 01/01/24 05/04/24 History albuterol sulfate 90 mcg/actuation 2 puff inhalation QID PRN 03/06/24 05/04/24 History aerosol inhaler Shortness Of Breath Or Wheezing torsemide 20 mg tablet 100 mg PO DAILY 05/04/24 05/04/24 History Patient History Medical History Hematuria Secondary polycythemia Obesity Congestive cardiomyopathy Severe sepsis 2018 [facility] admission sepsis 2/2 cellulitis R leg Hyponatremia Cellulitis of right leg 2019 [facility] admission sepsis 2/2 cellulitis R leg UTI (urinary tract infection) most recent early 2023>no recent issues Surgical History History of esophagogastroduodenoscopy (EGD) Hx of colonoscopy Status post inguinal hernia repair Status post appendectomy Family History Other Hypertension Stroke Social History Smoking Status: Never smoker Second Hand Exposure: No; Do You Dip or Chew Tobacco: No; Tobacco Cessation Education Requested by Patient: No Hx Alcohol Use: No Hx Substance Use: No Preferred Language: Beninese Communication Ability: Effective Visual Impairment: Limited Hearing Ability: Use of Hearing Aid Pediatric Dental Hygienist Required: No Beliefs That Will Affect Care: None marital status: Current Living Situation: Personal Care Facility Current Living Situation Comment: [facility] [employer] current occupational status: retired How many Children do You have: 6 Other Information That Helps Us Care for You: No Feels Safe at Home: No Is there a partner from a previous relationship who is making you feel unsafe now?: No Any Concerns about Your Family Situation: No Would You Like to Speak to Someone About Your Situation: No Safety Concerns: Feels Safe At This Time Diet: regular caffeine: No Physical Activity Frequency: Does not Exercise Seatbelt Use: always Assistive Devices: Cane, CPAP, Glasses, Hearing Aid - Bilateral, Walker and Wheelchair Review of Systems Review of Systems: All systems reviewed & are unremarkable except as noted in HPI & below Physical Exam Constitutional: WD/WN, vitals as above + obese; no acute distress Neck: trachea midline, no thyromegaly Respiratory: no labored breathing and + not able to speak in complete sentence (Mild conversational dyspnea) Cardiovascular: Rate/Rhythm: + tachycardic and + irregularly irregular Heart Sounds: no murmur Vessels: no JVD (evaluated sitting in the chair) Extremities: + edema (2+ edema with chronic stasis changes) Gastrointestinal (Abdomen): normal bowel sounds, soft, nontender, no hepatosplenomegaly Neurologic: PERRL, EOMI, accommodation nl, no face palsy, no dysarthria Results & Data Vital Signs (Past 12 Hours) Vital Signs Temp Pulse Pulse Resp BP BP Pulse Ox 05/05/24 07:12 90 05/05/24 03:00 36.3 C L 102 H 18 134/79 97 05/04/24 23:56 05/04/24 22:58 36.9 C 91 H 18 124/81 92 05/04/24 21:57 79 O2 Del Method 05/05/24 07:12 05/05/24 03:00 Room Air 05/04/24 23:56 Room Air, CPAP 05/04/24 22:58 Room Air 05/04/24 21:57 Laboratory Results Cardiac Enzymes 05/04/24 Range/Units 11:03 AST 16 (13-39) U/L Troponin I High Sens 8.7 (0-20) pg/ml B-Natriuretic Peptide 393 H (0-100) pg/ml Coagulation 05/04/24 05/05/24 Range/Units 11:03 06:43 PT 19.3 H 17.4 H (9.0-12.0) Seconds B-Natriuretic Peptide 393 H (0-100) pg/ml CBC 05/04/24 05/05/24 Range/Units 11:03 06:43 WBC 13.18 H 13.84 H (4.8-10.8) K/ul RBC 4.70 4.58 L (4.70-6.10) M/uL Hgb 13.9 L 13.6 L (14.0-18.0) g/dl Hct 43.6 42.1 (42.0-52.0) % Plt Count 192 186 (130-400) K/uL Neut # (Auto) 9.52 H (1.40-6.50) K/uL Lymph # (Auto) 2.13 (1.20-3.40) K/uL [place] # (Auto) 1.40 H (0.11-0.59) K/uL Eos # (Auto) 0.02 (0.00-0.50) K/uL Baso # (Auto) 0.05 (0.00-0.20) K/uL Comprehensive Metabolic Panel 05/04/24 05/05/24 Range/Units 11:03 06:43 Sodium 133 L 134 L (136-145) mmol/L Potassium 4.7 4.4 (3.5-5.1) mmol/L Chloride 96 L 99 (98-107) mmol/L Carbon Dioxide 25 23 (21-32) mmol/L BUN 52 H 45 H (6-23) mg/dl Creatinine 1.55 H 1.34 (0.6-1.4) mg/dl Glucose 208 H 175 H (70-99(Fasting)) mg/dl Calcium 9.4 9.3 (8.6-10.3) mg/dl AST 16 (13-39) U/L ALT 12 (7-52) U/L Alkaline Phosphatase 84 (34-104) U/L Total Protein 7.5 (6.0-8.3) gm/dl Albumin 4.5 (3.4-5.0) gm/dl Intake and Output 05/04/24 05/05/24 05/05/24 22:59 06:59 14:59 Intake Total 100 / 380 280 / 380 Output Total 350 / 925 175 / 925 Balance -250 / -545 105 / -545 Intake: Oral 100 / 380 280 / 380 Output: Urine 350 / 750 Urine Amount (Catheter) 175 / 175 [place]/Indwelling 175 / 175 Other: Weight 117.3 kg 115.3 kg Weight Measurement Method Standing Scale Built in [facility] Diagnostic Findings Telemetry reviewed: Atrial fibrillation with variable ventricular rates ranging 90-150's EKG reviewed dated 05/04/24: Afib with mildly elevated ventricular rates at 104 bmp LBBB Compared with prior EKG, no significant change He has had intermittent LBBB and non specific conduction delay dating back many years Chest X-Ray 05/04/24 11:38 XR chest 1V portable CLINICAL HISTORY: Shortness of breath. COMPARISON STUDY: Chest radiograph March 05, 2024. FINDINGS: There is no pneumothorax. Small bilateral pleural effusions are present with hazy bibasilar opacities. There is cardiomegaly with moderate interstitial pulmonary edema. Slight progression since prior exam. IMPRESSION: Cardiomegaly with moderate interstitial pulmonary edema with small bilateral pleural effusions and associated bibasilar opacities. Chest CT 05/04/24 14:41 IMPRESSION: 1. No consolidation to suggest pneumonia. 2. Moderate right pleural effusion. Associated subpleural opacity represents atelectasis. Trace left pleural effusion. 3. Cardiomegaly. Suspected mild pulmonary edema. ACT 112: Negative or not required by law. Electronically signed by: Victor Hugo Fallon M.D. 05/04/2024 4:08 PM Prior data reviewed: Echo report reviewed dated March 06, 2024: LVEF 45-50% Mild global hypokinesis of the LV RV is normal in size and function No significant valvular disease Medications Administered Current Inpatient Medications Acetaminophen (Acetaminophen 325 Mg Tab) 650 mg PO Q4H PRN PRN Reason: Pain or Fever Stop: 06/03/24 16:45 Last Admin: 05/04/24 21:04 Dose: 650 mg Al Hydrox/Mg Hydrox/Simethicone (Aluminum/Magnesium Susp 30 Ml Udc) 15 ml PO Q4H PRN PRN Reason: Dyspepsia Stop: 06/03/24 16:45 Allopurinol (Allopurinol 300 Mg Tab) 300 mg PO QAM [facility] Stop: 06/04/24 08:59 Last Admin: 05/05/24 08:42 Dose: 300 mg Aspirin (Aspirin 81 Mg Ectab) 81 mg PO QAM [facility] Stop: 06/04/24 08:59 Last Admin: 05/05/24 08:42 Dose: 81 mg Calcium Carbonate (Calcium Carbonate 500 Mg Chewable Tab) 500 mg PO BID PRN PRN Reason: gerd Stop: 06/03/24 17:09 Last Admin: 05/05/24 08:41 Dose: 500 mg Dextrose (Dextrose 50% 50 Ml Syringe) 25 - 50 ml IV UD PRN; Protocol PRN Reason: Hypoglycemia Protocol Stop: 06/03/24 16:45 Digoxin (Digoxin 0.125 Mg Tab) 0.125 mg PO MoWeFr@1600 [facility] Stop: 06/03/24 17:59 Last Admin: 05/04/24 20:27 Dose: Not Given Famotidine (Famotidine 20 Mg Tab) 20 [facility] Stop: 06/04/24 08:59 Last Admin: 05/05/24 08:42 Dose: 20 mg Finasteride (Finasteride 5 Mg Tab) 5 mg PO [facility]AJIM [facility] Stop: 06/04/24 08:59 Last Admin: 05/05/24 08:42 Dose: 5 mg Fluticasone Propionate (Fluticasone Propionate Na Spr 16 Gm Btl) 2 sprays NA BID PRN PRN Reason: Nasal Congestion Stop: 06/03/24 16:48 Furosemide (Furosemide 40 Mg/4 Ml Vial) 40 mg IV [facility]AJIM [facility] Stop: 06/04/24 08:59 Last Admin: 05/05/24 08:43 Dose: 40 mg Glucagon (Glucagon For Inj 1 Mg Vial) 1 mg SQ UD PRN; Protocol PRN Reason: Hypoglycemia Protocol Stop: 06/03/24 16:45 Glucose (Glucose 40% Gel 15 Gm Tube) 15 - 30 gm PO UD PRN; Protocol PRN Reason: Hypoglycemia Protocol Stop: 06/03/24 16:45 Glucose (Glucose 10 Tab/Tube) 4 - 8 tab PO UD PRN; Protocol PRN Reason: Hypoglycemia Treatment Stop: 06/03/24 16:45 Insulin Aspart (Insulin Aspart Per Unit Charge) 0 units SC ACHS [facility] Stop: 06/03/24 16:45 Last Admin: 05/04/24 22:30 Dose: Not Given Levothyroxine Sodium (Levothyroxine Sodium 88 Mcg Tablet) 88 mcg PO DAILYBB [facility] Stop: 06/04/24 06:29 Last Admin: 05/05/24 05:44 Dose: 88 mcg Magnesium Hydroxide (Magnesium Hydroxide Susp 30 Ml Udc) 30 ml PO Q12H PRN PRN Reason: Constipation Stop: 06/03/24 16:45 Metoprolol Succinate (Metoprolol Succ 50mg Ext Rel Tab) 150 mg PO [facility] Stop: 06/04/24 08:59 Last Admin: 05/05/24 08:42 Dose: 150 mg Metoprolol Succinate (Metoprolol Succ 50mg Ext Rel Tab) 100 mg PO QPM [facility] Stop: 06/03/24 20:59 Last Admin: 05/04/24 21:03 Dose: 100 mg Metoprolol Tartrate (Metoprolol Tartrate 1 Mg/Ml Vial) 5 mg IV Q6H PRN; Protocol PRN Reason: Tachycardia Stop: 06/03/24 17:14 Mirtazapine (Mirtazapine Tab 15 Mg Tab) 15 mg PO HS [facility] Stop: 06/03/24 20:59 Last Admin: 05/04/24 21:03 Dose: 15 mg Miscellaneous (Carbohydrates For Hypoglycemia ) 15 - 30 gm PO UD PRN PRN Reason: Hypoglycemia Protocol Stop: 06/03/24 16:45 Miscellaneous (*Colchicine*Order Awaiting Action) 1 each N/A QS [facility] Stop: 06/04/24 17:59 Ondansetron HCl (Ondansetron Inj 2 Mg/Ml 2 Ml Vial) 4 mg IV Q6H PRN PRN Reason: Nausea Stop: 06/03/24 16:45 Pantoprazole Sodium (Pantoprazole 40 Mg Tab) 40 mg PO QAM [facility] Stop: 06/04/24 08:59 Last Admin: 05/05/24 08:42 Dose: 40 mg Polyethylene Glycol (Polyethylene (Miralax) 17 Gm Pack) 17 gm PO DAILY PRN PRN Reason: Constipation Stop: 06/03/24 16:45 Potassium Chloride (Potassium Chloride 10 Meq Tabcr) 30 meq PO QAM [facility] Stop: 06/04/24 08:59 Last Admin: 05/05/24 08:52 Dose: 30 meq Pravastatin Sodium (Pravastatin Sod 40 Mg Tab) 40 mg PO HS [facility] Stop: 06/03/24 20:59 Last Admin: 05/04/24 21:03 Dose: 40 mg Sennosides (Senna 8.6 Mg Tab) 8.6 mg PO BID PRN PRN Reason: constipation Stop: 06/03/24 17:05 Spironolactone (Spironolactone 25 Mg Tab) 25 mg PO BID [facility] Stop: 06/04/24 08:59 Last Admin: 05/05/24 08:41 Dose: 25 mg Tamsulosin HCl (Tamsulosin Hcl 0.4 Mg Cap) 0.4 mg PO QPM [facility] Stop: 06/03/24 20:59 Last Admin: 05/04/24 21:03 Dose: 0.4 mg Tramadol HCl (Tramadol Hcl 50 Mg Tablet) 50 mg PO BID [facility] Stop: 06/03/24 20:59 Last Admin: 05/05/24 08:40 Dose: 50 mg Vitamin D (Cholecalciferol 25 Mcg (1000 Units) Tab) 50 mcg PO QAM [facility] Stop: 06/04/24 08:59 Last Admin: 05/05/24 08:42 Dose: 50 mcg Warfarin Sodium (Warfarin Sod 5 Mg Tab) 5 mg PO TuSa@1600 [facility] Stop: 06/06/24 15:59
[2024-05-05] MEDS: SPIRONOLACTONE 25 MG TAB PO SCH (08:41)
[2024-05-05] MEDS: CALCIUM CARBONATE 500 MG CHEWABLE TAB PO PRN (08:41)
[2024-05-05] MEDS: allopurinoL 300 MG TAB PO SCH (08:42)
[2024-05-05] MEDS: ASPIRIN 81 MG ECTAB PO SCH (08:42)
[2024-05-05] MEDS: CHOLECALCIFEROL 25 MCG (1000 UNITS) TAB PO SCH (08:42)
[2024-05-05] MEDS: FAMOTIDINE 20 MG TAB PO SCH (08:42)
[2024-05-05] MEDS: PANTOprazole 40 MG TAB PO SCH (08:42)
[2024-05-05] MEDS: METOPROLOL SUCC 50MG EXT REL TAB PO SCH (08:42)
[2024-05-05] MEDS: FINASTERIDE 5 MG TAB PO SCH (08:42)
[2024-05-05] MEDS: FUROSEMIDE 40 MG/4 ML VIAL IV SCH ×2 (08:43→14:31)
[2024-05-05 08:45] LABS: Estimated Average Glucose 154 mg/dl
[2024-05-05] MEDS: POTASSIUM CHLORIDE 10 MEQ TABCR PO SCH (08:52)
[2024-05-05] MEDS ORDERED: TORSEMIDE 100 MG TAB PO SCH (09:00)
[2024-05-05] MEDS: METOPROLOL TARTRATE 1 MG/ML VIAL IV PRN ×2 (10:44→12:41)
[2024-05-05] MEDS ORDERED: Heparin IV Adult Wt-Based Low-Dose *NO* INITIAL Bolus Protocol IV STA (13:19)
[2024-05-05] MEDS: HEPARIN SODIUM/DEXTROSE 25,000 UNITS/500 ML BAG IV SCH (13:40)
--- NOTE | 2024-05-05 14:19 | Communication Note ---
Date of Service: May 05, 2024 Patient reassessed due to AF RVR. V rates as high as 160 bpm with associated breathlessness. Received metoprolol 5 mg IV x 3 doses. Ventricular rates now 110-117 bpm. Comfortable. No complaints. Heparin infusing. Rate related IVCD / incomplete LBBB noted. Pt on digoxin, 3 days per week as outpt, dose adjusted for renal function. Also on Toprol 150 mg in am 100 mg pm. Will continue. Digoxin level today 0.4, will reload with IV dose x 1.
--- NOTE | 2024-05-05 14:40 | Hospitalist Progress Note ---
Date of Service May 05, 2024 Assessment & Plan (1) Hypoxia: (2) Pulmonary edema: (3) HTN (hypertension): (4) HLD (hyperlipidemia): (5) Atrial fibrillation: (6) Hypothyroidism: (7) Diabetes mellitus, type 2: Plan: 83 y/o M presents to the ED 05/04 from [facility] with worsening SOB and hypoxia (down to 88%) that has been occurring over the last week. Pt does not wear O2 at baseline. Patient is a resident of [facility] and is on Ellipta for the last 6 months. His family visits him on a daily basis and noted that as he was ambulating with his walker to the dining young over this past week that he became more short of breath and required pauses to catch his breath while he was walking. Pt denies orthopnea and reports sleeping in a recliner. Baseline weight around 250 lbs. Noted weight gain of 4-5 lbs over the last week. His torsemide and Aldactone was increased recently to 100 mg daily and 25 mg bid resp. Patient was recently admitted to [facility] 03/06 to 03/09 for A-fib with RVR and acute on chronic exacerbation of HFrEF. Additional past medical history includes A-fib, HFrEF, won-ypwygut-ezfdemeuf diabetes, hypothyroidism, and BPH. He is being managed for the following: Acute on Chronic HFrEF: Hypoxia: Pulmonary edema: Pleural effusion At admission: Leukocytosis 13.18, BNP 393, CT chest neg for pneumonia, UA neg. Trop and resp biofire neg. Chest imaging w/ mod right pleural effusion and mild pulm edema. ECHO: Most recent ECHO from 03/06/24: EF 45-50% which is improved from previous ECHO 10/25: EF45-49%, with Mild MR/TR Cardio on board, being diuresed. Pulm consulted, warfarin held to get INR below 1.5. Hep bridge until then. Plan holding hep prior to thoracentesis plan. Fluid restriction 1500mL, I/O; patient wants to use a urinal; receptive to [facility] if needed. Afib RVR: pt w/ chronic afib, currently in rvr. received multiple doses of prn iv metoprolol and additional dose of digoxin today. Pt will be transferred to pcu status. Pt w/ no chest pain. warfarin on hold for possible thoracentesis, on heparin bridge until then. Other chronic medical conditions: Continue with/resume home meds as when able. Hypertension: Takes metoprolol. Hyperlipidemia: Takes pravastatin Hypothyroidism: Takes levothyroxine T2DM: Chronic, takes metformin. Sliding scale insulin while in hospital. BPH: Chronic, takes finasteride. Continue. Continue to follow-up with urology as prior. Disposition: PCP: Dr. Scherer Code Status: VTE Prophylaxis: On hep drip, Coumadin on hold until thoracentesis. Admission and Anticipated Discharge Date Admission Date: May 04, 2024 Subjective Patient was seen and examined at the bedside. Patient was sitting up in chair, on room air, NAD, resting comfortably. Patient reports eating okay and moving bowels okay, reports having shortness of breath for 2 to 3 days prior to arrival, reports cough at baseline, denies fever. Patient denies any pain or burning with passing urine. Patient was reassessed again later in the day due to A-fib RVR associated with some chest discomfort, communicated with cardio, patient transferred to PCU status. patient received multiple doses of IV metoprolol, additional dose of digoxin. Patient's discomfort improved with improvement in his heart rate. Physical Exam Physical Exam: GENERAL: Alert and oriented x3. NAD, on RA. Appears elderly/ill/frail/weak. HEENT: No pallor, no icterus. Pupils equal, round and reactive to light. Oral mucosa moist. NECK: No JVD, no neck masses. HEART: S1 and S2 heard. irregular rate and rhythm. HR in 110s. RESPIRATORY SYSTEM: Normal AP diameter. No accessory muscle use. No wheezing, b/l crackles. Decreased RLL breath sounds ABDOMEN: Soft, bowel sounds present, nontender, no distention. CENTRAL NERVOUS SYSTEM: No facial droop. Speech is clear. Obeys simple commands. Moves extremities. EXTREMITIES: 1-2+ ble edema, chronic skin changes noted. Results & Data Results & Data Vital Signs (Past 12 Hours) Vital Signs Temp Pulse Pulse Pulse Pulse Resp BP 05/05/24 13:52 114 H 05/05/24 13:12 141 H 05/05/24 13:08 141 H 127/84 05/05/24 13:06 141 H 05/05/24 12:41 139 H 05/05/24 11:54 37.1 C 119 H 22 05/05/24 11:06 37.1 C 104 H 20 05/05/24 11:00 93 H 05/05/24 10:44 130 H 122/78 05/05/24 10:43 130 H 05/05/24 10:28 05/05/24 09:01 108 H 05/05/24 08:41 36.9 C 149 H 20 05/05/24 07:12 90 05/05/24 03:00 36.3 C L 102 H 18 BP BP Pulse Ox O2 Del Method 05/05/24 13:52 05/05/24 13:12 05/05/24 13:08 05/05/24 13:06 127/84 05/05/24 12:41 05/05/24 11:54 124/72 92 Room Air 05/05/24 11:06 110/59 L 90 Room Air 05/05/24 11:00 05/05/24 10:44 05/05/24 10:43 05/05/24 10:28 Room Air 05/05/24 09:01 05/05/24 08:41 131/81 93 Room Air 05/05/24 07:12 05/05/24 03:00 134/79 97 Room Air
[2024-05-05] MEDS: DIGOXIN 125 MCG in SYRINGE 9.5 ML IV STA (15:08)
[2024-05-05] MEDS ORDERED: WARFARIN SOD 2.5 MG TAB PO SCH (16:00)
--- NOTE | 2024-05-05 16:02 | Electrocardiogram Report ---
Test Reason : Blood Pressure : */* mmHG Vent. Rate : 128 BPM Atrial Rate : 107 BPM P-R Int : * ms QRS Dur : 138 ms QT Int : 306 ms P-R-T Axes : * 188 50 degrees QTcB Int : 446 ms Atrial fibrillation with rapid ventricular response Left bundle branch block Abnormal ECG When compared with ECG of 04-May-2024 11:02, No significant change was found Confirmed by Jake Rivera ([id number]) on 05/05/2024 4:01:51 PM Referred By: [facility] Confirmed By: Jake Rivera
[2024-05-05 20:39] LABS: ANTI-Xa, UFH(UnfractionatedHep 0.14 IU/ml (0.3-0.7)
[2024-05-05] MEDS: HEPARIN SOD (PORCINE) 1000 UNIT/ML IV ONE (21:12)
[2024-05-06 04:33] LABS: ANTI-Xa, UFH(UnfractionatedHep 0.29 IU/ml (0.3-0.7); INR 1.5 (0.9-1.1); Prothrombin Time 15.4 Seconds (9.0-12.0)
[2024-05-06 06:16] LABS: Hematocrit (blood only) 43.7 % (42.0-52.0); Hemoglobin 13.8 g/dl (14.0-18.0); Mean Corpuscular Hemoglobin 29.7 pg (25.0-34.0); Mean Corpuscular Hgb Conc 31.6 g/dL (32.0-36.0); Mean Corpuscular Volume 94.2 fL (80.0-100.0); Mean Platelet Volume 11.7 fL (9.4-12.4); Nucleated RBC # (auto) 0.03 K/uL (0.00-0.12); Nucleated RBC % (auto) 0.2 %; Platelet Count 157 K/uL (130-400); RDW Coefficient of Variation 17.7 % (11.5-14.5); RDW Standard Deviation 60.9 fL (36.4-46.3); Red Blood Count 4.64 M/uL (4.70-6.10); White Blood Count 13.85 K/ul (4.8-10.8)
[2024-05-06 06:24] LABS: Calcium 9.1 mg/dl (8.6-10.3); Magnesium 2.6 mg/dl (1.7-2.4); Potassium 4.5 mmol/L (3.5-5.1)
[2024-05-06 06:30] LABS: BUN Creatinine Ratio 31.9 (10-20); Creatinine Clr Calc Pharmacy 52.6 ml/min; Est GFR (African American) 55.9 ml/min; Est GFR (Non-African American) 48.2 ml/min; Phosphorus 4.1 mg/dl (2.5-4.9)
--- NOTE | 2024-05-06 10:40 | Cardiology Progress Note ---
Date of Service May 06, 2024 Assessment & Plan (1) Acute on chronic heart failure with reduced ejection fraction and diastolic dysfunction: (2) Chronic venous insufficiency: (3) Atrial fibrillation with RVR: (4) Pleural effusion: Plan 05/05/24 Patient admitted with volume overload, failing outpatient treatment, despite titration of oral diuretics. Right > Left pleural effusion on chest xray/CT scan. Pulm consulted to consider right sided thoracentesis. In the meantime, he has received several doses of Furosemide 40 mg IV. Unfortunately outputs have not been monitored closely. Weight appears to be trending downward. Increase furosemide to 40 mg IV BID today. Continue spironolactone 25 mg BID (home dose) Monitor renal function, electrolytes Daily weight with standing scale requested. In regards to afib RVR. His rates were controlled overnight and more elevated this morning, particularly when patient was agitated about his room being hot. He just received morning metoprolol 150 mg in AM. Continue 100 mg at night Recheck digoxin level Only taking 125 mcg M/W/F. If low, will consider additional dose today Continue coumadin for INR goal of 2.0-3.0. INR is 1.7 today. Coumadin on hold due to possible thoracentesis. Continue ASA and statin. 05/06/24: Patient's volume status improving with Furosemide 40 mg IV. Patient now has nicholas cath. Unsure if I+O's was accurate previously Weight trending downward. Interval improvement in LE edema and respiratory status. Stable renal function and electrolytes. Mild hyponatremia- monitor. Continue spironolactone 25 mg BID for now Daily weight with standing scale. Pulm consulted to consider thoracentesis on the right pleural effusion. Coumadin on hold. INR 1.5 today. Continue IV heparin bridge. Atrial fibrillation is persistent/chronic. Rates elevated yesterday and reloaded with IV digoxin. Continue digoxin 125 mcg M/W/F Continue metoprolol 150 mg in AM and 100 mg in PM. If needed, could consider increasing evening dose to 150. Case discussed with Dr. Leal I spent a total of 30 minutes on the date of service in preparation, delivery, and documentation of the care provided to this patient, excluding any time spent in the performance of separately billed services. Merna Gonzalez PA-C Department of Cardiology, [facility] This chart was completed in part utilizing Speech Voice Recognition Software. Grammatical errors, random word insertions, pronoun errors, and incomplete sentences are an occasional consequence of this system due to software limitations, ambient noise, and hardware issues. Any formal questions or concerns about the content, text, or information contained within the body of this dictation should be directly addressed to the provider for clarification. Admission and Anticipated Discharge Date Admission Date: May 04, 2024 Supervising Physician Co-Signing Physician Notes Attending attestation: Case reviewed with the advanced practitioner. I have personally performed a history and physical examination on the patient. I have reviewed the advanced practitioner's documentation on the date of service referenced in note, and I agree with, and take responsibility for the plan of care. At times ventricular rate elevated, however patient not symptomatic subjectively to this regard. He is already on high dose metoprolol succinate outside the hospital and digoxin 3 days per week. He is a poor candidate for calcium channel naomy and has a rate related IVCD /LBBB. Will give another dose of IV digoxin for "reloading" given low level on 05/05/24. Suspect elevated rates are a situation of acute recognition of a chronic issue and perhaps conservative measures are best. Continue furosemide 40 mg IV BID. I spent a total of 20 minutes coordinating, documenting, and providing care for this patient excluding time spent in the performance of separately billed services or time spent by another provider. Jorden Leal, DO Subjective Patient resting in bed comfortably. Son at bedside. Mental status/confusion improved from yesterday. He denies CP or SOB currently. Still has cough. Edema improving. Nicholas now placed for accurate I+O's. Yesterday he had bouts afib RVR, treated with IV Lopressor. He was also provided with IV digoxin to reload. Rates improved this morning around 100. Review of Systems Review of Systems: All systems reviewed & are unremarkable except as noted in HPI & below Physical Exam Constitutional: WD/WN, vitals as above + obese; no acute distress Neck: trachea midline, no thyromegaly Respiratory: able to speak in complete sentences (Mild conversational dyspnea); no labored breathing Auscultation: + diminished lung sounds; no rales and no rhonchi Cardiovascular: Rate/Rhythm: + irregularly irregular Heart Sounds: no murmur Vessels: no JVD (evaluated sitting in the chair) Extremities: + edema (2+ edema with chronic stasis changes) Gastrointestinal (Abdomen): normal bowel sounds, soft, nontender, no hepatosplenomegaly Neurologic: PERRL, EOMI, accommodation nl, no face palsy, no dysarthria Results & Data Vital Signs (Past 12 Hours) Vital Signs Temp Pulse Pulse Resp BP BP Pulse Ox 05/06/24 07:25 36.6 C 87 19 134/83 93 05/06/24 04:08 36.7 C 88 20 124/82 93 05/06/24 01:24 05/05/24 23:20 36.7 C 92 H 20 129/83 96 O2 Del Method 05/06/24 07:25 Room Air 05/06/24 04:08 Room Air 05/06/24 01:24 Room Air 05/05/24 23:20 Room Air Laboratory Results Coagulation 05/06/24 Range/Units 03:27 PT 15.4 H (9.0-12.0) Seconds CBC 05/06/24 Range/Units 05:43 WBC 13.85 H (4.8-10.8) K/ul RBC 4.64 L (4.70-6.10) M/uL Hgb 13.8 L (14.0-18.0) g/dl Hct 43.7 (42.0-52.0) % Plt Count 157 (130-400) K/uL Comprehensive Metabolic Panel 05/06/24 Range/Units 05:43 Sodium 133 L (136-145) mmol/L Potassium 4.5 (3.5-5.1) mmol/L Chloride 99 (98-107) mmol/L Carbon Dioxide 23 (21-32) mmol/L BUN 43 H (6-23) mg/dl Creatinine 1.35 (0.6-1.4) mg/dl Glucose 144 H (70-99(Fasting)) mg/dl Calcium 9.1 (8.6-10.3) mg/dl Intake and Output 05/05/24 05/06/24 05/06/24 22:59 06:59 14:59 Intake Total 347.000 / 789.167 442.167 / 789.167 Output Total 600 / 975 375 / 975 Balance -253.000 / -185.833 67.167 / -185.833 Intake: IV 147.000 / 389.167 242.167 / 389.167 Heparin Sodium/Dextrose 25,000 147.000 / 389.167 242.167 / 389.167 units In 500 ml @ 1,300 UNITS/ HR 26 mls/hr IV .[id number] [facility] Rx #:[id number] Oral 200 / 400 200 / 400 Output: Urine Amount (Catheter) 600 / 975 375 / 975 Nicholas/Indwelling 600 / 975 375 / 975 Other: Weight 115.3 kg 114.6 kg Weight Measurement Method [facility] Diagnostic Findings Telemetry reviewed: Afib with variable rates ranging 80-100 bmp Medications Administered Current Inpatient Medications Acetaminophen (Acetaminophen 325 Mg Tab) 650 mg PO Q4H PRN PRN Reason: Pain or Fever Stop: 06/03/24 16:45 Last Admin: 05/05/24 17:47 Dose: 650 mg Al Hydrox/Mg Hydrox/Simethicone (Aluminum/Magnesium Susp 30 Ml Udc) 15 ml PO Q4H PRN PRN Reason: Dyspepsia Stop: 06/03/24 16:45 Allopurinol (Allopurinol 300 Mg Tab) 300 mg PO [facility] Stop: 06/04/24 08:59 Last Admin: 05/06/24 08:31 Dose: 300 mg Aspirin (Aspirin 81 Mg Ectab) 81 mg PO [facility] Stop: 06/04/24 08:59 Last Admin: 05/06/24 08:31 Dose: 81 mg Calcium Carbonate (Calcium Carbonate 500 Mg Chewable Tab) 500 mg PO BID PRN PRN Reason: gerd Stop: 06/03/24 17:09 Last Admin: 05/05/24 08:41 Dose: 500 mg Dextrose (Dextrose 50% 50 Ml Syringe) 25 - 50 ml IV UD PRN; Protocol PRN Reason: Hypoglycemia Protocol Stop: 06/03/24 16:45 Digoxin (Digoxin 0.125 Mg Tab) 0.125 mg PO [id number] [facility] Stop: 06/03/24 17:59 Last Admin: 05/04/24 20:27 Dose: Not Given Famotidine (Famotidine 20 Mg Tab) 20 mg PO [facility] Stop: 06/04/24 08:59 Last Admin: 05/06/24 08:31 Dose: 20 mg Finasteride (Finasteride 5 Mg Tab) 5 mg PO [facility] Stop: 06/04/24 08:59 Last Admin: 05/06/24 08:32 Dose: 5 mg Fluticasone Propionate (Fluticasone Propionate Na Spr 16 Gm Btl) 2 sprays NA BID PRN PRN Reason: Nasal Congestion Stop: 06/03/24 16:48 Furosemide (Furosemide 40 Mg/4 Ml Vial) 40 mg IV [id number] [facility] Stop: 06/04/24 13:59 Last Admin: 05/06/24 06:39 Dose: 40 mg Glucagon (Glucagon For Inj 1 Mg Vial) 1 mg SQ UD PRN; Protocol PRN Reason: Hypoglycemia Protocol Stop: 06/03/24 16:45 Glucose (Glucose 40% Gel 15 Gm Tube) 15 - 30 gm PO UD PRN; Protocol PRN Reason: Hypoglycemia Protocol Stop: 06/03/24 16:45 Glucose (Glucose 10 Tab/Tube) 4 - 8 tab PO UD PRN; Protocol PRN Reason: Hypoglycemia Treatment Stop: 06/03/24 16:45 Heparin Sodium/Dextrose (Heparin Sodium/Dextrose) 25,000 units in 500 mls @ 26 mls/hr IV .[id number] [facility]; Protocol Stop: 06/04/24 13:44 Last Titration: 05/06/24 06:55 Dose: 1,300 units/hr, 26 mls/hr Insulin Aspart (Insulin Aspart Per Unit Charge) 0 units SC ACHS [facility] Stop: 06/03/24 16:45 Last Admin: 05/06/24 08:29 Dose: 3 units Levothyroxine Sodium (Levothyroxine Sodium 88 Mcg Tablet) 88 mcg PO DAILYBB [facility] Stop: 06/04/24 06:29 Last Admin: 05/06/24 06:38 Dose: 88 mcg Magnesium Hydroxide (Magnesium Hydroxide Susp 30 Ml Udc) 30 ml PO Q12H PRN PRN Reason: Constipation Stop: 06/03/24 16:45 Metoprolol Succinate (Metoprolol Succ 50mg Ext Rel Tab) 150 mg PO QAM [facility] Stop: 06/04/24 08:59 Last Admin: 05/06/24 08:31 Dose: 150 mg Metoprolol Succinate (Metoprolol Succ 50mg Ext Rel Tab) 100 mg PO QPM [facility] Stop: 06/03/24 20:59 Last Admin: 05/05/24 21:59 Dose: 100 mg Metoprolol Tartrate (Metoprolol Tartrate 1 Mg/Ml Vial) 5 mg IV Q6H PRN; Protocol PRN Reason: Tachycardia Stop: 06/03/24 17:14 Last Admin: 05/05/24 13:08 Dose: 5 mg Metoprolol Tartrate (Metoprolol Tartrate 1 Mg/Ml Vial) 5 mg IV Q5M PRN; Protocol PRN Reason: for HR > 120 bpm Last Admin: 05/05/24 12:41 Dose: 5 mg Mirtazapine (Mirtazapine Tab 15 Mg Tab) 15 mg PO HS GALO Stop: 06/03/24 20:59 Last Admin: 05/05/24 21:59 Dose: 15 mg Miscellaneous (Carbohydrates For Hypoglycemia ) 15 - 30 gm PO UD PRN PRN Reason: Hypoglycemia Protocol Stop: 06/03/24 16:45 Miscellaneous (*Colchicine*Order Awaiting Action) 1 each N/A QS GALO Stop: 06/04/24 17:59 Last Admin: 05/06/24 08:31 Dose: Not Given Ondansetron HCl (Ondansetron Inj 2 Mg/Ml 2 Ml Vial) 4 mg IV Q6H PRN PRN Reason: Nausea Stop: 06/03/24 16:45 Pantoprazole Sodium (Pantoprazole 40 Mg Tab) 40 mg PO QAM GALO Stop: 06/04/24 08:59 Last Admin: 05/06/24 08:31 Dose: 40 mg Polyethylene Glycol (Polyethylene (Miralax) 17 Gm Pack) 17 gm PO DAILY PRN PRN Reason: Constipation Stop: 06/03/24 16:45 Potassium Chloride (Potassium Chloride 10 Meq Tabcr) 30 meq PO QAM GALO Stop: 06/04/24 08:59 Last Admin: 05/06/24 08:41 Dose: 30 meq Pravastatin Sodium (Pravastatin Sod 40 Mg Tab) 40 mg PO HS GALO Stop: 06/03/24 20:59 Last Admin: 05/05/24 21:59 Dose: 40 mg Sennosides (Senna 8.6 Mg Tab) 8.6 mg PO BID PRN PRN Reason: constipation Stop: 06/03/24 17:05 Spironolactone (Spironolactone 25 Mg Tab) 25 mg PO BID G[facility]O Stop: 06/04/24 08:59 Last Admin: 05/06/24 08:31 Dose: 25 mg Tamsulosin HCl (Tamsulosin Hcl 0.4 Mg Cap) 0.4 mg PO QPM [facility] Stop: 06/03/24 20:59 Last Admin: 05/05/24 21:59 Dose: 0.4 mg Tramadol HCl (Tramadol Hcl 50 Mg Tablet) 50 mg PO BID G[facility]O Stop: 06/03/24 20:59 Last Admin: 05/06/24 08:41 Dose: 50 mg Vitamin D (Cholecalciferol 25 Mcg (1000 Units) Tab) 50 mcg PO QAM G[facility]O Stop: 06/04/24 08:59 Last Admin: 05/06/24 08:32 Dose: 50 mcg
[2024-05-06 11:27] LABS: ANTI-Xa, UFH(UnfractionatedHep 0.23 IU/ml (0.3-0.7)
--- NOTE | 2024-05-06 12:08 | Pulmonary Consultation ---
Date of Consultation May 06, 2024 Assessment & Plan (1) Pleural effusion: (2) Acute on chronic heart failure with reduced ejection fraction and diastolic dysfunction: Plan Impression: 83-year-old male with A-fib and systolic diastolic heart failure admitted with pulmonary edema and pleural effusions. These are decreasing compared to prior and the patient is currently asymptomatic. Recommendations: 1. Pleural effusions: Discussed with the patient options to include continued medical management versus thoracentesis. We reviewed what thoracentesis would entail. Unfortunately patient is on a heparin infusion. This would need to be held for 4 hours before the patient could undergo thoracentesis. He states that as he is asymptomatic currently, he would prefer to withhold any invasive procedures. I think it is reasonable to continue with diuresis and see how he does clinically. 2. Hypoxemia: Currently resolved. If the patient elects to pursue invasive procedures in the future, would be happy to reevaluate him but I think at this point in time continued medical management with diuretics and heart rate and blood pressure control may be adequate Pulmonary will sign off. Feel free to contact us with questions or concerns History of Present Illness Attending Physician: Freddy Malik MD History of Present Illness Asked by hospitalist to assist in evaluation and management this patient with pleural effusion. History is obtained from discussion with the patient as well as review of the electronic medical record. Patient is an 83-year-old male with a history of atrial fibrillation with rapid ventricular response and heart failure who was admitted to the hospital 05/04/2024 with complaints of shortness of breath. He was initially hypoxemic and chest x-ray confirmed presence of pulmonary edema as well as bilateral pleural effusions. These have been noted on prior admissions as well. He was given Lasix and cardiology consultation was obtained. Pulmonary was initially consulted for potential thoracentesis however the patient's INR was 2 was he is maintained on Coumadin in the outpatient setting. This morning is 1.5. I assessed the patient. He is currently awake alert and conversant. He denies any shortness of breath. He is off oxygen. He is currently on a heparin infusion. He states that his desire is to be dismissed from the hospital so that he can watch the football game tomorrow. He denies fevers chills night sweats or other constitutional symptoms Allergies Allergy/AdvReac Type Severity Reaction Status Date / Time adhesive AdvReac Intermediate sensitive Verified 03/06/24 00:25 skin to strong adhesives Home Medications Medication Instructions Recorded Confirmed Type alfuzosin 10 mg tablet,extended 10 mg PO QPM 09/29/18 05/04/24 History release 24 hr allopurinol 300 mg tablet 300 mg PO QAM 09/29/18 05/04/24 History cholecalciferol (vitamin D3) 25 2,000 units PO QAM 09/29/18 05/04/24 History mcg (1,000 unit) tablet (Vitamin D3) colchicine 0.6 mg tablet 0.6 mg PO UD PRN gout flare 09/29/18 05/04/24 History digoxin 250 mcg (0.25 mg) tablet 125 mcg PO 3XWK 09/29/18 05/04/24 History fluticasone propionate 50 2 spray intranasal BID PRN Nasal 09/29/18 05/04/24 History mcg/actuation nasal Congestion spray,suspension (Flonase Allergy Relief) levothyroxine 88 mcg tablet 88 mcg PO QAM 09/29/18 05/04/24 History metoprolol succinate 50 mg See Rx Instructions .Route .COMPLEX 09/29/18 05/04/24 History tablet,extended release 24 hr multivitamin 1 tab PO QAM 09/29/18 05/04/24 History potassium chloride 20 mEq 30 meq PO QAM 09/29/18 05/04/24 History tablet,extended release(part/cryst) pravastatin 40 mg tablet 40 mg PO HS 09/29/18 05/04/24 History tramadol 50 mg tablet 50 mg PO BID 09/29/18 05/04/24 History warfarin 5 mg tablet See Rx Instructions .Route .COMPLEX 09/29/18 05/04/24 History triamcinolone acetonide 0.1 % 1 applic topical BID PRN Skin 06/18/21 05/04/24 History topical cream Irritation mupirocin 2 % topical ointment 1 applic topical BID PRN Skin 12/06/21 05/04/24 History Irritation pantoprazole 40 mg tablet,delayed 40 mg PO QAM 08/15/23 05/04/24 History release acetaminophen 500 mg capsule 1,000 mg PO Q6H PRN Pain 10/20/23 05/04/24 History calcium carbonate (Calcium Antacid) 400 mg PO BID PRN gerd 10/20/23 05/04/24 History famotidine 20 mg tablet 20 mg PO QAM 10/20/23 05/04/24 History finasteride 5 mg tablet 5 mg PO QAM 10/20/23 05/04/24 History lactulose 10 gram/15 mL oral 10 g PO BID PRN Constipation 10/20/23 05/04/24 History solution mirtazapine 15 mg tablet 15 mg PO HS 10/20/23 05/04/24 History naloxone 4 mg/actuation nasal spray 4 mg intranasal UD PRN overdose 10/20/23 05/04/24 History ondansetron HCl 4 mg tablet 4 mg PO Q8H PRN Nausea 10/20/23 05/04/24 History sodium chloride 0.65 % nasal spray 1 spray intranasal BID PRN Dry 10/20/23 05/04/24 History aerosol (Saline Mist) Nasal Passages aspirin 81 mg tablet,delayed 81 mg PO QAM 10/21/23 05/04/24 History release sennosides 8.6 mg capsule (senna) 8.6 mg PO BID PRN constipation #30 10/21/23 05/04/24 Rx caps polyethylene glycol 3350 17 17 g PO DAILY PRN Constipation 11/20/23 05/04/24 History gram/dose oral powder (Miralax) metformin 500 mg tablet,extended See Rx Instructions .Route .COMPLEX 01/01/24 05/04/24 History release 24 hr spironolactone 25 mg tablet 25 mg PO BID 01/01/24 05/04/24 History albuterol sulfate 90 mcg/actuation 2 puff inhalation QID PRN 03/06/24 05/04/24 History aerosol inhaler Shortness Of Breath Or Wheezing torsemide 20 mg tablet 100 mg PO DAILY 05/04/24 05/04/24 History Patient History Medical History Hematuria Secondary polycythemia Obesity Congestive cardiomyopathy Severe sepsis 2018 [facility] admission sepsis 2/2 cellulitis R leg Hyponatremia Cellulitis of right leg 2019 [facility] admission sepsis 2/2 cellulitis R leg UTI (urinary tract infection) most recent early 2023>no recent issues Surgical History History of esophagogastroduodenoscopy (EGD) Hx of colonoscopy Status post inguinal hernia repair Status post appendectomy Family History Other Hypertension Stroke Social History Smoking Status: Never smoker Second Hand Exposure: No; Do You Dip or Chew Tobacco: No; Tobacco Cessation Education Requested by Patient: No Hx Alcohol Use: No Hx Substance Use: No Preferred Language: Maltese Communication Ability: Effective Visual Impairment: Limited Hearing Ability: Use of Hearing Aid Certified Surgical Technician Required: No Beliefs That Will Affect Care: None marital status: Current Living Situation: Personal Care Facility Current Living Situation Comment: [facility] current occupational status: retired How many Children do You have: 6 Other Information That Helps Us Care for You: No Feels Safe at Home: No Is there a partner from a previous relationship who is making you feel unsafe now?: No Any Concerns about Your Family Situation: No Would You Like to Speak to Someone About Your Situation: No Safety Concerns: Feels Safe At This Time Diet: regular caffeine: No Physical Activity Frequency: Does not Exercise Seatbelt Use: always Assistive Devices: Cane, CPAP, Glasses, Hearing Aid - Bilateral, Walker and Wheelchair Review of Systems Review of Systems: All systems reviewed & are unremarkable except as noted in Subjective Physical Exam Constitutional: WD/WN, vitals as above + obese; no acute distress Neck: trachea midline, no thyromegaly Respiratory: able to speak in complete sentences (Mild conversational dyspnea); no labored breathing Auscultation: + diminished lung sounds; no rales and no rhonchi Cardiovascular: Rate/Rhythm: + irregularly irregular Heart Sounds: no murmur Vessels: no JVD (evaluated sitting in the chair) Extremities: + edema (2+ edema with chronic stasis changes) Gastrointestinal (Abdomen): normal bowel sounds, soft, nontender, no hepatosplenomegaly Neurologic: PERRL, EOMI, accommodation nl, no face palsy, no dysarthria Results & Data Results & Data Vital Signs (Past 12 Hours) Vital Signs Temp Pulse Pulse Pulse Resp BP BP 05/06/24 11:34 36.5 C 115 H 135/84 05/06/24 11:26 95 H 05/06/24 07:25 36.6 C 87 19 134/83 05/06/24 04:08 36.7 C 88 20 124/82 05/06/24 01:24 Pulse Ox O2 Del Method 05/06/24 11:34 97 Room Air 05/06/24 11:26 05/06/24 07:25 93 Room Air 05/06/24 04:08 93 Room Air 05/06/24 01:24 Room Air Critical Care Results & Data Vital Signs (Past 12 Hours) Vital Signs Temp Pulse Pulse Pulse Resp BP BP 05/06/24 11:34 36.5 C 115 H 135/84 05/06/24 11:26 95 H 05/06/24 07:25 36.6 C 87 19 134/83 05/06/24 04:08 36.7 C 88 20 124/82 05/06/24 01:24 Pulse Ox O2 Del Method 05/06/24 11:34 97 Room Air 05/06/24 11:26 05/06/24 07:25 93 Room Air 05/06/24 04:08 93 Room Air 05/06/24 01:24 Room Air Lab & Micro Results (Past 24 Hours) RBC 4.64 M/uL (4.70-6.10) L 05/06/24 WBC 13.85 K/ul (4.8-10.8) H 05/06/24 Hgb 13.8 g/dl (14.0-18.0) L 05/06/24 Hct 43.7 % (42.0-52.0) 05/06/24 MCV 94.2 fL (80.0-100.0) 05/06/24 MCH 29.7 pg (25.0-34.0) 05/06/24 MCHC 31.6 g/dL (32.0-36.0) L 05/06/24 RDW Standard Deviation 60.9 fL (36.4-46.3) H 05/06/24 RDW Coefficient of Variation 17.7 % (11.5-14.5) H 05/06/24 Plt Count 157 K/uL (130-400) 05/06/24 MPV 11.7 fL (9.4-12.4) 05/06/24 Nucleated Red Blood Cells % (auto) 0.2 % 05/06 Nucleated RBC Absolute Count (auto) 0.03 K/uL (0.00-0.12) 0 05/06/24 Na 133 mmol/L (136-145) L 05/06/24 K 4.5 mmol/L (3.5-5.1) 05/06/24 Cl 99 mmol/L (98-107) 05/06/24 CO2 23 mmol/L (21-32) 05/06/24 Anion Gap 11 (3-11) 05/06/24 BUN 43 mg/dl (6-23) H 05/06/24 Creatinine 1.35 mg/dl (0.6-1.4) 05/06/24 Estimated GFR ( Amer) 55.9 ml/min 05/06/24 Estimated GFR (Non-Af Amer) 48.2 ml/min 05/06/24 BUN/Creatinine Ratio 31.9 (10-20) H 05/06/24 Glu 144 mg/dl (70-99(Fasting)) H 05/06/24 Ca 9.1 mg/dl (8.6-10.3) 05/06/24 Phosphorus Level 4.1 mg/dl (2.5-4.9) 05/06/24 Mg 2.6 mg/dl (1.7-2.4) H 05/06/24 05:43 Calcium Level 9.1 mg/dl (8.6-10.3) 05/06/24 05:43 Prothromb Time International Ratio 1.5 (0.9-1.1) H 05/06/24 03 :27 I & O Totals 24 Hours 05/05/24 05/06/24 05/07/24 06:59 06:59 06:59 Intake Total 380 / 380 789.167 / 789.167 119.167 / 119.167 Output Total 925 / 925 975 / 975 Balance -545 / -545 -185.833 / -185.833 119.167 / 119.167 Cumulative 05/04/24 10:34 thru 05/06/24 11:30 Intake Total 1288.334 Output Total 1900 Balance -611.666 RT Ventilator Mngmt (Last Documented) Ventilator Ordered Settings Respiratory Rate 19 05/06/24 07:25 Ventilator - PT Measurements Respiratory Rate 19 PG Care Time/CCT Total # of Minutes Spent Total Time Spent with Patient: Total time spent is greater than 50% in coordination of care (as documented) at patient's floor/unit and/or counseling patient: Coding Level of Care Code 68454 INT INP/OBS CARE MIN Diagnoses Pleural effusion J90 Acute on chronic heart failure with reduced ejection fraction and diastolic dysfunction I50.43
[2024-05-06] MEDS: DIGOXIN 125 MCG in SYRINGE 9.5 ML IV ONE (13:45)
--- NOTE | 2024-05-06 15:30 | Hospitalist Progress Note ---
Date of Service May 06, 2024 Assessment & Plan (1) Hypoxia: (2) Pulmonary edema: (3) HTN (hypertension): (4) HLD (hyperlipidemia): (5) Atrial fibrillation: (6) Hypothyroidism: (7) Diabetes mellitus, type 2: Plan: 83 y/o M presents to the ED 05/04 from [facility] with worsening SOB and hypoxia (down to 88%) that has been occurring over the last week. Pt does not wear O2 at baseline. Patient is a resident of [facility] and is on Ellipta for the last 6 months. His family visits him on a daily basis and noted that as he was ambulating with his walker to the dining young over this past week that he became more short of breath and required pauses to catch his breath while he was walking. Pt denies orthopnea and reports sleeping in a recliner. Baseline weight around 250 lbs. Noted weight gain of 4-5 lbs over the last week. His torsemide and Aldactone was increased recently to 100 mg daily and 25 mg bid resp. Patient was recently admitted to [facility] 03/06 to 03/09 for A-fib with RVR and acute on chronic exacerbation of HFrEF. Additional past medical history includes A-fib, HFrEF, [id number] diabetes, hypothyroidism, and BPH. He is being managed for the following: Acute on Chronic HFrEF: Hypoxia: Pulmonary edema: Pleural effusion At admission: Leukocytosis 13.18, BNP 393, CT chest neg for pneumonia, UA neg. Trop and resp biofire neg. Chest imaging w/ mod right pleural effusion and mild pulm edema. ECHO: Most recent ECHO from 03/06/24: EF 45-50% which is improved from previous ECHO 10/25: EF45-49%, with Mild MR/TR Cardio on board, being diuresed. Pulm evaled. Pt declined thoracentesis. Coumadin resumed, hep bridge to continue until pt/inr > 2 Fluid restriction 1500mL, I/O. Afib RVR: pt w/ chronic afib, goes into rvr on and off no associated symptoms. currently rate better controlled. c/w anticoagulation as above. Other chronic medical conditions: Continue with/resume home meds as when able. Hypertension: Takes metoprolol. Hyperlipidemia: Takes pravastatin Hypothyroidism: Takes levothyroxine T2DM: Chronic, takes metformin. Sliding scale insulin while in hospital. BPH: Chronic, takes finasteride. Continue. Continue to follow-up with urology as prior. Disposition: PCP: Dr. Scherer Code Status: VTE Prophylaxis: On hep drip, Coumadin . follow pt/inr Admission and Anticipated Discharge Date Admission Date: May 04, 2024 Subjective Patient was seen and examined at the bedside. Patient was lying in bed, on room air, NAD, resting comfortably. Patient reports eating okay and moving bowels okay, reports improving sob. Patient denies any pain or burning with passing urine. Pt w/ afib rvr later in the morning, received metoprolol and digoxin doses. Physical Exam Physical Exam: GENERAL: Alert and oriented x3. NAD, on RA. Appears elderly/ill/frail/weak. HEENT: No pallor, no icterus. Pupils equal, round and reactive to light. Oral mucosa moist. NECK: No JVD, no neck masses. HEART: S1 and S2 heard. irregular rate and rhythm. HR in 110s. RESPIRATORY SYSTEM: Normal AP diameter. No accessory muscle use. No wheezing, b/l crackles - improving. Decreased RLL breath sounds ABDOMEN: Soft, bowel sounds present, nontender, no distention. CENTRAL NERVOUS SYSTEM: No facial droop. Speech is clear. Obeys simple com mands. Moves extremities. EXTREMITIES: 1+ ble edema, chronic skin changes noted. Results & Data Results & Data Vital Signs (Past 12 Hours) Vital Signs Temp Pulse Pulse Pulse Resp BP BP 05/06/24 15:11 36.6 C 94 H 20 116/77 05/06/24 13:45 125 H 05/06/24 12:29 150 H 136/79 05/06/24 12:10 151 H 128/84 05/06/24 11:34 36.5 C 115 H 135/84 05/06/24 11:26 95 H 05/06/24 07:25 36.6 C 87 19 134/83 05/06/24 04:08 36.7 C 88 20 BP Pulse Ox O2 Del Method 05/06/24 15:11 92 Room Air 05/06/24 13:45 05/06/24 12:29 05/06/24 12:10 05/06/24 11:34 97 Room Air 05/06/24 11:26 05/06/24 07:25 93 Room Air 05/06/24 04:08 124/82 93 Room Air
[2024-05-06] MEDS: WARFARIN SOD 2.5 MG TAB PO SCH (18:11)
[2024-05-06 20:09] LABS: ANTI-Xa, UFH(UnfractionatedHep 0.28 IU/ml (0.3-0.7)
[2024-05-07 03:21] LABS: Hematocrit (blood only) 42.8 % (42.0-52.0); Hemoglobin 13.8 g/dl (14.0-18.0); Mean Corpuscular Hemoglobin 29.9 pg (25.0-34.0); Mean Corpuscular Hgb Conc 32.2 g/dL (32.0-36.0); Mean Corpuscular Volume 92.6 fL (80.0-100.0); Mean Platelet Volume 10.8 fL (9.4-12.4); Nucleated RBC # (auto) 0.04 K/uL (0.00-0.12); Nucleated RBC % (auto) 0.3 %; Platelet Count 164 K/uL (130-400); RDW Coefficient of Variation 17.7 % (11.5-14.5); RDW Standard Deviation 59.5 fL (36.4-46.3); Red Blood Count 4.62 M/uL (4.70-6.10); White Blood Count 12.81 K/ul (4.8-10.8)
[2024-05-07 03:34] LABS: Calcium 9.1 mg/dl (8.6-10.3); Magnesium 2.4 mg/dl (1.7-2.4); Potassium 4.3 mmol/L (3.5-5.1)
[2024-05-07 03:40] LABS: BUN Creatinine Ratio 29.2 (10-20); Creatinine Clr Calc Pharmacy 51.8 ml/min; Est GFR (African American) 54.9 ml/min; Est GFR (Non-African American) 47.4 ml/min; Phosphorus 4.3 mg/dl (2.5-4.9)
[2024-05-07 03:53] LABS: ANTI-Xa, UFH(UnfractionatedHep 0.33 IU/ml (0.3-0.7); INR 1.3 (0.9-1.1); Prothrombin Time 13.8 Seconds (9.0-12.0)
--- NOTE | 2024-05-07 08:36 | Cardiology Progress Note ---
Date of Service May 07, 2024 Assessment & Plan (1) Acute on chronic heart failure with reduced ejection fraction and diastolic dysfunction: (2) Chronic venous insufficiency: (3) Atrial fibrillation with RVR: (4) Pleural effusion: Plan 05/05/24 Patient admitted with volume overload, failing outpatient treatment, despite titration of oral diuretics. Right > Left pleural effusion on chest xray/CT scan. Pulm consulted to consider right sided thoracentesis. In the meantime, he has received several doses of Furosemide 40 mg IV. Unfortunately outputs have not been monitored closely. Weight appears to be trending downward. Increase furosemide to 40 mg IV BID today. Continue spironolactone 25 mg BID (home dose) Monitor renal function, electrolytes Daily weight with standing scale requested. In regards to afib RVR. His rates were controlled overnight and more elevated this morning, particularly when patient was agitated about his room being hot. He just received morning metoprolol 150 mg in AM. Continue 100 mg at night Recheck digoxin level Only taking 125 mcg M/W/F. If low, will consider additional dose today Continue coumadin for INR goal of 2.0-3.0. INR is 1.7 today. Coumadin on hold due to possible thoracentesis. Continue ASA and statin. 05/06/24: Patient's volume status improving with Furosemide 40 mg IV. Patient now has nicholas cath. Unsure if I+O's was accurate previously Weight trending downward. Interval improvement in LE edema and respiratory status. Stable renal function and electrolytes. Mild hyponatremia- monitor. Continue spironolactone 25 mg BID for now Daily weight with standing scale. Pulm consulted to consider thoracentesis on the right pleural effusion. Coumadin on hold. INR 1.5 today. Continue IV heparin bridge. Atrial fibrillation is persistent/chronic. Rates elevated yesterday and reloaded with IV digoxin. Continue digoxin 125 mcg M/W/F Continue metoprolol 150 mg in AM and 100 mg in PM. If needed, could consider increasing evening dose to 150. 05/07/2024: -patient's volume status continues to improve -Renal function stable. -Serum Na 129, continue to monitor closely. -Weight continues to trend down. -Continue to daily weights with standing scale, strict I&O, Nicholas cath in place. -HR controlled. Continue with PO digoxin 125 mcg M/W/F, Continue Metoprolol 150mg QAM and 100mg QPM -Refused thoracentesis, Continue Spironolactone -Continue Furosemide 40mg IV BID with close monitoring of electrolytes. -warfarin resumed with close monitoring/titration based on INR Case has been discussed with Dr. Beckham. Further recommendations regarding plan of care as per his assessment. I spent a total of 30 minutes on the date of service in preparation, delivery, documentation of the care provided to the patient excluding any time spent in the performance of separately billed services. DENG Vicente [facility] Cardiology [facility] Admission and Anticipated Discharge Date Admission Date: May 04, 2024 Supervising Physician Co-Signing Physician Notes Attending attestation: Case reviewed with the advanced practitioner. I have personally performed a history and physical examination on the patient. I have reviewed the advanced practitioner's documentation on the date of service referenced in note, and I agree with, and take responsibility for the plan of care. Patient continues to have episodes of A-fib with RVR especially with minimal exertional activities. Patient had episode of shortness of breath when moving from chair to bed associated with fast heart rates he was given IV Lasix. Patient has persistent atrial fibrillation amiodarone is not an option has underlying left bundle branch block which limits use of calcium channel blockers however if heart rate continues to remain above 130 we will need to start on Cardizem drip on furosemide 40 mg IV BID. Still volume overloaded and needs IV diuresis Chest x-ray reviewed pulmonary congestion and right pleural effusion Heart rates elevated in setting of heart failure IV Lasix 40 mg once now(already received 2 doses in the morning) Increase IV Lasix to 60 mg twice daily from tomorrow I spent a total of 30 minutes coordinating, documenting, and providing care for this patient excluding time spent in the performance of separately billed services or time spent by another provider. Subjective 05/07/2024: Patient seen and examined in follow up today. Feeling fair. sitting out in a chair eating lunch at time of exam. Offers no cardiac complaints. Does exhibit some baseline confusion asking where his room is, but also is able to tell me he would like to watch the [employer] on TV today. Labs, vitals, diagnostics, telemetry and documentation reviewed. Telemetry reviewed showing A-fib with occasional PVC rates 70-110. -1L fluid balance -5kg weight deficit Review of Systems Review of Systems: All systems reviewed & are unremarkable except as noted in HPI & below Physical Exam Constitutional: well developed and well nourished; no acute distress and not ill appearing Neck: normal visual inspection and trachea midline Respiratory: normal respiratory effort; no respiratory distress and no labored breathing Auscultation: + crackles (bilateral bases ); no rales, no rhonchi and no wheezes Cardiovascular: Rate/Rhythm: + irregularly irregular Heart Sounds: normal S1 and normal S2; no murmur Vessels: dorsalis pedis pulses present; no JVD Extremities: + edema (Trace BLE) Skin: no rashes, warm and dry normal turgor Psychiatric: Orientation: alert, oriented to person and oriented to time Results & Data Vital Signs (Past 12 Hours) Vital Signs Temp Pulse Pulse Pulse Resp BP Pulse Ox 05/07/24 07:03 36.6 C 92 H 20 101/64 95 05/07/24 06:46 94 H 05/07/24 06:32 115 H 05/07/24 02:58 36.4 C L 104 H 16 143/93 H 95 05/06/24 23:46 36.9 C 77 16 122/71 95 05/06/24 22:51 O2 Del Method O2 Flow Rate 05/07/24 07:03 Nasal Cannula 2 05/07/24 06:46 05/07/24 06:32 05/07/24 02:58 Room Air 05/06/24 23:46 CPAP 05/06/24 22:51 Nasal Cannula 1 Laboratory Results Cardiac Enzymes 05/07/24 Range/Units 14:11 Troponin I High Sens 11.7 (0-20) pg/ml Coagulation 05/07/24 Range/Units 03:12 PT 13.8 H (9.0-12.0) Seconds CBC 05/07/24 Range/Units 03:12 WBC 12.81 H (4.8-10.8) K/ul RBC 4.62 L (4.70-6.10) M/uL Hgb 13.8 L (14.0-18.0) g/dl Hct 42.8 (42.0-52.0) % Plt Count 164 (130-400) K/uL Comprehensive Metabolic Panel 05/07/24 Range/Units 03:12 Sodium 129 L (136-145) mmol/L Potassium 4.3 (3.5-5.1) mmol/L Chloride 94 L (98-107) mmol/L Carbon Dioxide 26 (21-32) mmol/L BUN 40 H (6-23) mg/dl Creatinine 1.37 (0.6-1.4) mg/dl Glucose 141 H (70-99(Fasting)) mg/dl Calcium 9.1 (8.6-10.3) mg/dl Intake and Output 05/07/24 05/07/24 05/07/24 06:59 14:59 22:59 Intake Total 475.5 / 1386.667 90.5 / 90.5 Output Total 550 / 2200 Balance -74.5 / -813.333 90.5 / 90.5 Intake: IV 225.5 / 596.667 90.5 / 90.5 Heparin Sodium/Dextrose 25,000 225.5 / 596.667 90.5 / 90.5 units In 500 ml @ 1,500 UNITS/ HR 30 mls/hr IV .[id number] [facility] Rx #:[id number] Oral 250 / 790 Output: Other 50 / 50 Urine Amount (Catheter) 500 / 2150 Nicholas/Indwelling 500 / 2150 Other: Weight 109.1 kg Weight Measurement Method Built in [facility]
--- NOTE | 2024-05-07 14:54 | XRay Report ---
XR chest 1V portable HISTORY: 83 years-old Male sob acute shortness breath COMPARISON: Chest CT 05/04/2024 TECHNIQUE: AP view the chest FINDINGS: Cardiac silhouette is enlarged. Pulmonary vascular congestion. Azygos lobe and fissure. Moderate righ t pleural effusion with right greater than left bibasilar densities redemonstrated. Bones appear [place] sly intact. IMPRESSION: 1. Cardiomegaly with pulmonary vascular congestion. 2. Moderate pleural effusion with right basilar atelectasis, unchanged from the recent chest CT. ACT 112: Negative or not required by law. The above report was generated using voice recognition software. It may contain grammatical, syntax o r spelling errors. Electronically signed by: Isauro Olmedo M.D. 05/07/2024 2:52 PM
[2024-05-07] MEDS ORDERED: WARFARIN SOD 5 MG TAB PO SCH (16:00)
[2024-05-07] MEDS: WARFARIN SOD 5 MG TAB PO SCH (16:24)
--- NOTE | 2024-05-07 16:49 | Hospitalist Progress Note ---
Date of Service May 07, 2024 Assessment & Plan (1) Hypoxia: (2) Pulmonary edema: (3) HTN (hypertension): (4) HLD (hyperlipidemia): (5) Atrial fibrillation: (6) Hypothyroidism: (7) Diabetes mellitus, type 2: Plan: 83 y/o M presents to the ED 05/04 from [facility] with worsening SOB and hypoxia (down to 88%) that has been occurring over the last week. Pt does not wear O2 at baseline. Patient is a resident of [facility] and is on Ellipta for the last 6 months. His family visits him on a daily basis and noted that as he was ambulating with his walker to the dining young over this past week that he became more short of breath and required pauses to catch his breath while he was walking. Pt denies orthopnea and reports sleeping in a recliner. Baseline weight around 250 lbs. Noted weight gain of 4-5 lbs over the last week. His torsemide and Aldactone was increased recently to 100 mg daily and 25 mg bid resp. Patient was recently admitted to [facility] 03/06 to 03/09 for A-fib with RVR and acute on chronic exacerbation of HFrEF. Additional past medical history includes A-fib, HFrEF, jab-tygrgnm-gnrnfuamb diabetes, hypothyroidism, and BPH. He is being managed for the following: Acute on Chronic HFrEF: Hypoxia: Pulmonary edema: Pleural effusion At admission: Leukocytosis 13.18, BNP 393, CT chest neg for pneumonia, UA neg. Trop and resp biofire neg. Chest imaging w/ mod right pleural effusion and mild pulm edema. ECHO: Most recent ECHO from 03/06/24: EF 45-50% which is improved from previous ECHO 10/25: EF45-49%, with Mild MR/TR Cardio on board, being diuresed. Pulm evaled. Pt declined thoracentesis. Coumadin resumed, hep bridge to continue until pt/inr > 2 Fluid restriction 1500mL, I/O. Hold aldactone given Na 129 today, c/t monitor. Repeat CXR w/ slightly improved congetion and rt pleural effusion per my interpretation. Afib RVR: pt w/ chronic afib, goes into rvr on and off no associated symptoms. currently rate better controlled. c/w anticoagulation as above. Other chronic medical conditions: Continue with/resume home meds as when able. Hypertension: Takes metoprolol. Hyperlipidemia: Takes pravastatin Hypothyroidism: Takes levothyroxine T2DM: Chronic, takes metformin. Sliding scale insulin while in hospital. BPH: Chronic, takes finasteride. Continue. Continue to follow-up with urology as prior. Disposition: PCP: Dr. Scherer Code Status: VTE Prophylaxis: On hep drip, Coumadin . follow pt/inr Admission and Anticipated Discharge Date Admission Date: May 04, 2024 Subjective Patient was seen and examined at the bedside. Patient was lying in bed, on room air, NAD, resting comfortably. Patient reports eating okay and moving bowels okay, reports improving sob. Patient denies any pain or burning with passing urine. Pt w/ afib rvr, denies chest pain. Physical Exam Physical Exam: GENERAL: Alert and oriented x3. NAD, on RA. Appears elderly/ill/frail/weak. HEENT: No pallor, no icterus. Pupils equal, round and reactive to light. Oral mucosa moist. NECK: No JVD, no neck masses. HEART: S1 and S2 heard. irregular rate and rhythm. HR in 110s. RESPIRATORY SYSTEM: Normal AP diameter. No accessory muscle use. No wheezing, b/l crackles - improving. Decreased RLL breath sounds ABDOMEN: Soft, bowel sounds present, nontender, no distention. CENTRAL NERVOUS SYSTEM: No facial droop. Speech is clear. Obeys simple commands. Moves extremities. EXTREMITIES: trace ble edema, chronic skin changes noted. Results & Data Results & Data Vital Signs (Past 12 Hours) Vital Signs Temp Pulse Pulse Pulse Resp BP BP 05/07/24 16:06 36.7 C 119 H 19 05/07/24 16:00 05/07/24 15:30 111 H 05/07/24 14:12 05/07/24 14:03 110 H 26 H 05/07/24 13:42 120 H 105/70 05/07/24 13:27 150 H 115/90 05/07/24 11:57 36.6 C 100 H 19 05/07/24 10:10 102 H 05/07/24 08:00 05/07/24 07:03 36.6 C 92 H 20 101/64 05/07/24 06:46 94 H 05/07/24 06:32 115 H BP Pulse Ox Pulse Ox Pulse Ox Pulse Ox O2 Del Method O2 Del Method 05/07/24 16:06 106/73 95 Room Air 05/07/24 16:00 94 Room Air 05/07/24 15:30 05/07/24 14:12 96 91 05/07/24 14:03 100/66 94 Nasal Cannula 05/07/24 13:42 05/07/24 13:27 05/07/24 11:57 128/83 95 Room Air 05/07/24 10:10 05/07/24 08:00 Nasal Cannula 05/07/24 07:03 95 Nasal Cannula 05/07/24 06:46 05/07/24 06:32 O2 Flow Rate O2 Flow Rate O2 Flow Rate 05/07/24 16:06 05/07/24 16:00 05/07/24 15:30 05/07/24 14:12 0 0 05/07/24 14:03 2 05/07/24 13:42 05/07/24 13:27 05/07/24 11:57 05/07/24 10:10 05/07/24 08:00 2 05/07/24 07:03 2 05/07/24 06:46 05/07/24 06:32
[2024-05-07] MEDS: FUROSEMIDE 40 MG/4 ML VIAL IV ONE (19:53)
[2024-05-08 06:28] LABS: Calcium 8.6 mg/dl (8.6-10.3); Magnesium 2.2 mg/dl (1.7-2.4); Potassium 4.5 mmol/L (3.5-5.1)
[2024-05-08 06:34] LABS: BUN Creatinine Ratio 32.8 (10-20); Creatinine Clr Calc Pharmacy 60.4 ml/min; Est GFR (African American) 65.1 ml/min; Est GFR (Non-African American) 56.2 ml/min; Phosphorus 4.5 mg/dl (2.5-4.9)
[2024-05-08 07:32] LABS: Hematocrit (blood only) 44.5 % (42.0-52.0); Hemoglobin 14.1 g/dl (14.0-18.0); Mean Corpuscular Hemoglobin 29.4 pg (25.0-34.0); Mean Corpuscular Hgb Conc 31.7 g/dL (32.0-36.0); Mean Corpuscular Volume 92.7 fL (80.0-100.0); Mean Platelet Volume 11.1 fL (9.4-12.4); Nucleated RBC # (auto) 0.05 K/uL (0.00-0.12); Nucleated RBC % (auto) 0.4 %; Platelet Count 183 K/uL (130-400); RDW Coefficient of Variation 17.8 % (11.5-14.5); White Blood Count 11.21 K/ul (4.8-10.8)
[2024-05-08 07:58] LABS: ANTI-Xa, UFH(UnfractionatedHep 0.31 IU/ml (0.3-0.7); INR 1.5 (0.9-1.1); Prothrombin Time 15.6 Seconds (9.0-12.0)
--- NOTE | 2024-05-08 08:27 | Cardiology Progress Note ---
Date of Service May 08, 2024 Assessment & Plan (1) Acute on chronic heart failure with reduced ejection fraction and diastolic dysfunction: (2) Chronic venous insufficiency: (3) Atrial fibrillation with RVR: (4) Pleural effusion: Plan 05/05/24 Patient admitted with volume overload, failing outpatient treatment, despite titration of oral diuretics. Right > Left pleural effusion on chest xray/CT scan. Pulm consulted to consider right sided thoracentesis. In the meantime, he has received several doses of Furosemide 40 mg IV. Unfortunately outputs have not been monitored closely. Weight appears to be trending downward. Increase furosemide to 40 mg IV BID today. Continue spironolactone 25 mg BID (home dose) Monitor renal function, electrolytes Daily weight with standing scale requested. In regards to afib RVR. His rates were controlled overnight and more elevated this morning, particularly when patient was agitated about his room being hot. He just received morning metoprolol 150 mg in AM. Continue 100 mg at night Recheck digoxin level Only taking 125 mcg M/W/F. If low, will consider additional dose today Continue coumadin for INR goal of 2.0-3.0. INR is 1.7 today. Coumadin on hold due to possible thoracentesis. Continue ASA and statin. 05/06/24: Patient's volume status improving with Furosemide 40 mg IV. Patient now has nicholas cath. Unsure if I+O's was accurate previously Weight trending downward. Interval improvement in LE edema and respiratory status. Stable renal function and electrolytes. Mild hyponatremia- monitor. Continue spironolactone 25 mg BID for now Daily weight with standing scale. Pulm consulted to consider thoracentesis on the right pleural effusion. Coumadin on hold. INR 1.5 today. Continue IV heparin bridge. Atrial fibrillation is persistent/chronic. Rates elevated yesterday and reloaded with IV digoxin. Continue digoxin 125 mcg M/W/F Continue metoprolol 150 mg in AM and 100 mg in PM. If needed, could consider increasing evening dose to 150. 05/07/2024: -patient's volume status continues to improve -Renal function stable. -Serum Na 129, continue to monitor closely. -Weight continues to trend down. -Continue to daily weights with standing scale, strict I&O, Nicholas cath in place. -HR controlled. Continue with PO digoxin 125 mcg M/W/F, Continue Metoprolol 150mg QAM and 100mg QPM -Refused thoracentesis, Continue Spironolactone -Continue Furosemide 40mg IV BID with close monitoring of electrolytes. -warfarin resumed with close monitoring/titration based on INR 05/08/2024: -Patient is diuresing. Renal function stable -Will increase Furosemide from 40mg IV BID to 60mg IV BID. -Serum Na 130, continue to monitor closely. -Patient is still against having a thoracentesis at this time. Discussed in detail with family that we will continues to cautiously diurese while closely monitoring electrolytes and renal function. If not showing clinical improvement, may need to reconsider pursing procedure -Continue to daily weights with standing scale, strict I&O, Nicholas cath in place. -HR controlled. Continue with PO digoxin 125 mcg , Continue Metoprolol 150mg QAM and 100mg QPM -Continue Spironolactone -Warfarin has been resumed with close monitoring. -Obtain chest xray in the AM Case has been discussed with Dr. Beckham. Further recommendations regarding plan of care as per her assessment. I spent a total of 30 minutes on the date of service in preparation, delivery, documentation of the care provided to the patient excluding any time spent in the performance of separately billed services. DENG Vicente [facility] Cardiology [facility] Admission and Anticipated Discharge Date Admission Date: May 04, 2024 Supervising Physician Co-Signing Physician Notes Attending attestation: Case reviewed with the advanced practitioner. I have personally performed a history and physical examination on the patient. I have reviewed the advanced practitioner's documentation on the date of service referenced in note, and I agree with, and take responsibility for the plan of care. 83-year-old with acute on chronic heart failure and atrial fibrillation with rapid ventricular response, pleural effusion patient refused thoracocentesis . Yesterday chest x-ray showed pulmonary congestion and pleural effusion has been short of breath and tachycardic with minimal exertion moving from bed to chair. Given extra dose of Lasix Lasix dose increased to 60 mg twice daily A-fib with RVR on metoprolol and digoxin, Cardizem has been avoided because of underlying interventricular conduction delay I spent a total of 30 minutes coordinating, documenting, and providing care for this patient excluding time spent in the performance of separately billed services or time spent by another provider. Subjective 05/08/2024: Patient seen and examined in follow up today. Feeling well per patient. Family present in the room. Patient denies any chest pain, pressure, palpitations, remains on supplemental O2, but denies any new or worseing changes to his breathing. Labs, vitals, diagnostics, telemetry and documentation reviewed. Serum Na 130 Cr Stable -229cc fluid deficit this AM Telemetry reviewed showing A-fib, rates 70-80s, no acute events overnight. Review of Systems Review of Systems: All systems reviewed & are unremarkable except as noted in HPI & below Physical Exam Constitutional: well developed and well nourished; no acute distress and not ill appearing Neck: normal visual inspection and trachea midline Respiratory: normal respiratory effort; no respiratory distress and no labored breathing Auscultation: + crackles (bilateral bases ); no rales, no rhonchi and no wheezes Cardiovascular: Rate/Rhythm: + irregularly irregular Heart Sounds: normal S1 and normal S2; no murmur Vessels: dorsalis pedis pulses present; no JVD Extremities: + edema (Trace BLE) Skin: no rashes, warm and dry normal turgor Psychiatric: Orientation: alert, oriented to person and oriented to time Results & Data Vital Signs (Past 12 Hours) Vital Signs Temp Pulse Pulse Pulse Resp BP BP 05/08/24 07:35 36.8 C 82 18 119/81 05/08/24 03:42 36.4 C L 79 14 124/86 05/08/24 00:00 95 H 05/07/24 23:44 36.7 C 91 H 16 109/67 Pulse Ox O2 Del Method 05/08/24 07:35 96 Room Air 05/08/24 03:42 93 Room Air 05/08/24 00:00 05/07/24 23:44 91 Room Air Laboratory Results Cardiac Enzymes 05/07/24 Range/Units 14:11 Troponin I High Sens 11.7 (0-20) pg/ml Coagulation 05/08/24 05/08/24 Range/Units 05:50 07:18 PT Cancelled 15.6 H CBC 05/08/24 05/08/24 Range/Units 05:50 07:18 WBC Cancelled 11.21 H RBC Cancelled 4.80 Hgb Cancelled 14.1 Hct Cancelled 44.5 Plt Count Cancelled 183 Comprehensive Metabolic Panel 05/08/24 Range/Units 05:50 Sodium 130 L (136-145) mmol/L Potassium 4.5 (3.5-5.1) mmol/L Chloride 98 (98-107) mmol/L Carbon Dioxide 21 (21-32) mmol/L BUN 39 H (6-23) mg/dl Creatinine 1.19 (0.6-1.4) mg/dl Glucose 126 H (70-99(Fasting)) mg/dl Calcium 8.6 (8.6-10.3) mg/dl Intake and Output 05/07/24 05/08/24 05/08/24 22:59 06:59 14:59 Intake Total 1405.5 / 1796.0 300 / 1796.0 500 / 500 Output Total 1399 Balance 5.5 / -229.0 -325 / -229.0 500 / 500 Intake: IV 385.5 / 476.0 500 / 500 Heparin Sodium/Dextrose 25,000 385.5 / 476.0 500 / 500 units In 500 ml @ 1,500 UNITS/ HR 30 mls/hr IV .[id number] [facility] Rx #:[id number] Oral 1020 / 1320 300 / 1320 Output: Urine Amount (Catheter) 1399 Nicholas/Indwelling 1399 Other: Weight 117.6 kg Weight Measurement Method Built in [facility]
[2024-05-08] MEDS: SENNA 8.6 MG TAB PO PRN (09:01)
[2024-05-08] MEDS: FUROSEMIDE 40 MG/4 ML VIAL IV SCH (09:01)
--- NOTE | 2024-05-08 12:06 | Electrocardiogram Report ---
Test Reason : Blood Pressure : */* mmHG Vent. Rate : 114 BPM Atrial Rate : 96 BPM P-R Int : * ms QRS Dur : 138 ms QT Int : 366 ms P-R-T Axes : * 175 71 degrees QTcB Int : 504 ms Atrial fibrillation with rapid ventricular response Right axis deviation Left bundle branch block Cannot rule out Septal infarct (cited on or before 05-May-2024) Abnormal ECG When compared with ECG of 05-May-2024 12:52, No significant change was found Confirmed by Omi Owens ([id number]) on 05/08/2024 12:06:16 PM Referred By: [facility] Confirmed By: Omi Owens
--- NOTE | 2024-05-08 12:16 | Electrocardiogram Report ---
Test Reason : Blood Pressure : */* mmHG Vent. Rate : 122 BPM Atrial Rate : 156 BPM P-R Int : * ms QRS Dur : 138 ms QT Int : 354 ms P-R-T Axes : * 157 18 degrees QTcB Int : 504 ms Atrial fibrillation with rapid ventricular response Left bundle branch block Abnormal ECG When compared with ECG of 06-May-2024 16:30, (unconfirmed) No significant change was found Confirmed by Omi Owens ([id number]) on 05/08/2024 12:16:00 PM Referred By: [facility] Confirmed By: Omi Owens
--- NOTE | 2024-05-08 14:16 | Hospitalist Progress Note ---
Date of Service May 08, 2024 Assessment & Plan (1) Hypoxia: (2) Pulmonary edema: (3) HTN (hypertension): (4) HLD (hyperlipidemia): (5) Atrial fibrillation: (6) Hypothyroidism: (7) Diabetes mellitus, type 2: Plan: 83 y/o M presents to the ED 05/04 from [facility] with worsening SOB and hypoxia (down to 88%) that has been occurring over the last week. Pt does not wear O2 at baseline. Patient is a resident of [facility] and is on Ellipta for the last 6 months. His family visits him on a daily basis and noted that as he was ambulating with his walker to the dining young over this past week that he became more short of breath and required pauses to catch his breath while he was walking. Pt denies orthopnea and reports sleeping in a recliner. Baseline weight around 250 lbs. Noted weight gain of 4-5 lbs over the last week. His torsemide and Aldactone was increased recently to 100 mg daily and 25 mg bid resp. Patient was recently admitted to [facility] 03/06 to 03/09 for A-fib with RVR and acute on chronic exacerbation of HFrEF. Additional past medical history includes A-fib, HFrEF, fkt-cqfjesh-zvqesrknh diabetes, hypothyroidism, and BPH. He is being managed for the following: Acute on Chronic HFrEF: Hypoxia: Pulmonary edema: Pleural effusion At admission: Leukocytosis 13.18, BNP 393, CT chest neg for pneumonia, UA neg. Trop and resp biofire neg. Chest imaging w/ mod right pleural effusion and mild pulm edema. ECHO: Most recent ECHO from 03/06/24: EF 45-50% which is improved from previous ECHO 10/25: EF45-49%, with Mild MR/TR Cardio on board, being diuresed. Pulm evaled. Pt declined thoracentesis. Coumadin resumed, hep bridge to continue until pt/inr > 2. INR 1.5 today. Fluid restriction 1500mL, I/O. Aldactone given low Na, c/t monitor. Repeat CXR 05/07 w/ slightly improved congetion and rt pleural effusion per my interpretation. Afib RVR: pt w/ chronic afib, goes into rvr on and off no associated symptoms. currently rate better controlled. c/w anticoagulation as above. Other chronic medical conditions: Continue with/resume home meds as when able. Hypertension: Takes metoprolol. Hyperlipidemia: Takes pravastatin Hypothyroidism: Takes levothyroxine T2DM: Chronic, takes metformin. Sliding scale insulin while in hospital. BPH: Chronic, takes finasteride. Continue. Continue to follow-up with uro logy as prior. Disposition: PCP: Dr. Scherer Code Status: VTE Prophylaxis: On hep drip, Coumadin . follow pt/inr Admission and Anticipated Discharge Date Admission Date: May 04, 2024 Subjective Patient was seen and examined at the bedside. Patient was lying in bed, on room air, NAD, resting comfortably. Patient reports eating okay and moving bowels okay, reports no chest pain Patient denies any pain or burning with passing urine. Pt w/ episodic afib rvr, denies chest pain. HR better controlled today. Physical Exam Physical Exam: GENERAL: Alert and oriented x3. NAD, on RA. Appears elderly/ill/frail/weak. HEENT: No pallor, no icterus. Pupils equal, round and reactive to light. Oral mucosa moist. NECK: No JVD, no neck masses. HEART: S1 and S2 heard. irregular rate and rhythm. HR in 110s. RESPIRATORY SYSTEM: Normal AP diameter. No accessory muscle use. No wheezing, b/l crackles - improving. Decreased RLL breath sounds ABDOMEN: Soft, bowel sounds present, nontender, no distention. CENTRAL NERVOUS SYSTEM: No facial droop. Speech is clear. Obeys simple commands. Moves extremities. EXTREMITIES: trace ble edema, chronic skin changes noted. Results & Data Results & Data Vital Signs (Past 12 Hours) Vital Signs Temp Pulse Pulse Pulse Resp BP BP 05/08/24 11:37 36.6 C 83 18 118/77 05/08/24 08:30 71 05/08/24 07:35 36.8 C 82 18 119/81 05/08/24 03:42 36.4 C L 79 14 124/86 Pulse Ox O2 Del Method O2 Flow Rate 05/08/24 11:37 96 Nasal Cannula 1 05/08/24 08:30 05/08/24 07:35 96 Room Air 05/08/24 03:42 93 Room Air
--- NOTE | 2024-05-09 07:44 | XRay Report ---
XR chest 1V portable HISTORY: 83 years-old Male pleural effusions, heart failure COMPARISON: 05/07/2024 TECHNIQUE: AP view of the chest FINDINGS: Cardiac silhouette is enlarged. Atherosclerosis of aorta. Azygos lobe and fissure. No pneumothorax. P ulmonary vascular congestion with interstitial coarsening. Layering pleural effusions with bibasilar consolidation again seen. Bones appear grossly intact. IMPRESSION: 1. Cardiomegaly with interstitial pulmonary edema, generally unchanged from prior. 2. Layering pleural effusions with bibasilar consolidation again noted. ACT 112: Negative or not required by law. The above report was generated using voice recognition software. It may contain grammatical, syntax o r spelling errors. Electronically signed by: Isauro Olmedo M.D. 05/09/2024 7:43 AM
[2024-05-09 08:28] LABS: INR 1.5 (0.9-1.1)
[2024-05-09 08:35] LABS: Hematocrit (blood only) 45.3 % (42.0-52.0); Mean Corpuscular Hemoglobin 28.9 pg (25.0-34.0); Mean Corpuscular Hgb Conc 30.9 g/dL (32.0-36.0); Mean Corpuscular Volume 93.6 fL (80.0-100.0); Mean Platelet Volume 11.4 fL (9.4-12.4); Nucleated RBC # (auto) 0.02 K/uL (0.00-0.12); Nucleated RBC % (auto) 0.2 %; Platelet Count 216 K/uL (130-400); RDW Coefficient of Variation 17.6 % (11.5-14.5); RDW Standard Deviation 59.8 fL (36.4-46.3); Red Blood Count 4.84 M/uL (4.70-6.10); White Blood Count 8.24 K/ul (4.8-10.8)
[2024-05-09 08:50] LABS: BUN Creatinine Ratio 34.7 (10-20); Calcium 9.2 mg/dl (8.6-10.3); Creatinine Clr Calc Pharmacy 56.7 ml/min; Est GFR (African American) 61.9 ml/min; Est GFR (Non-African American) 53.4 ml/min; Magnesium 2.2 mg/dl (1.7-2.4); Phosphorus 4.4 mg/dl (2.5-4.9); Potassium 4.4 mmol/L (3.5-5.1)
--- NOTE | 2024-05-09 10:26 | Cardiology Progress Note ---
Date of Service May 09, 2024 Assessment & Plan (1) Acute on chronic heart failure with reduced ejection fraction and diastolic dysfunction: (2) Chronic venous insufficiency: (3) Atrial fibrillation with RVR: (4) Pleural effusion: Plan Complex 83-year-old male admitted with acute decompensated diastolic heart failure, volume overload, presumed associated right greater than left pleural effusions. Right-sided thoracentesis considered, declined by patient. Patient with known non-ischemic congestive cardiomyopathy with initial LVEF 20%, 45-50% via February 2024 resting echocardiography. Outpatient diuretic regimen consisted of torsemide 100 mg/day, spironolactone 50 mg/day, and 30 mEq of potassium chloride. Prior use of metolazone resulted in hyponatremia. Additional problems include nonobstructive coronary artery disease (mild via catheterization in April 2010, nonischemic Lexiscan nuclear stress testing January 2023), permanent atrial fibrillation (chronically treated with rate control (metoprolol succinate and digoxin) and chronic anticoagulation with Coumadin), mild nonobstructive carotid artery disease, hyperlipidemia, hypertriglyceridemia, type 2 diabetes mellitus (Jardiance utilized prior to hospitalization) Recommendations: Continue IV diuresis, increasing furosemide 80 mg twice per day Continue spironolactone Prior use of metolazone resulted in hyponatremia. Monitor fluid balance, daily labs Restrict sodium to 1500 mg/day or less Restrict fluids to 2 L/day or less Heart rates acceptably controlled, likely improving with normovolemia. Continue current dose of metoprolol succinate (150 AM, 100 PM) and digoxin CPAP therapy encouraged Continue aspirin and pravastatin, known mild carotid and nonobstructive CAD. Admission and Anticipated Discharge Date Admission Date: May 04, 2024 Supervising Physician Co-Signing Physician Notes I have personally performed a history and physical examination on the patient. I have reviewed the advance practitioner's documentation, and I agree with, and take responsibility for the plan of care. 83-year-old male with acute on chronic heart failure with mildly reduced LV systolic function. Fair rate control on telemetry. Agree with titration of furosemide 80 mg twice daily while hospitalized. Continue spironolactone as ordered. Encourage compliance with CPAP. I spent a total of 35 minutes on the date of service in preparation, delivery, and documentation of the care provided to this patient, excluding any time spent in the performance of separately billed services. Geraldo Loza DO, [facility] Subjective Patient seen and examined. Chart, medications, telemetry reviewed. Breathing has improved. Notes ability to take a deeper breath. No chest pain. No palpitations. Did not utilize CPAP therapy last night Hyponatremia improved to 134 mmol/L. Creatinine relatively stable. Potassium (4.4) and magnesium (2.2) OK Chest x-ray with interstitial pulmonary edema, layering pleural effusions, bibasilar consolidation Hudson catheter in place I's/O's -3357 mL overall Telemetry: Atrial fibrillation with an acceptably controlled ventricular response Review of Systems Review of Systems: Complete review of systems is otherwise as stated above, negative, or noncontributory. Physical Exam Physical Exam: General: A&Ox3. NAD. Elevated BMI HENT: Normocephalic. Atraumatic. Eyes: PER. Conjunctiva pink, sclera clear. Neck: JVD. Heart: Irregularly irregular at 90 bpm. Distant heart sounds. No murmurs appreciated. Lungs: Diminished. Decreased. No wheezes, rales, or rhonchi. Abdomen: Obese. +BS. Soft. Nontender. No masses or organomegaly. Extremities: 1+ indurated edema. No cellulitis. Stasis changes. No clubbing. No cyanosis. Limited neurological examination is without focal deficits. Results & Data Vital Signs (Past 12 Hours) Vital Signs Temp Pulse Pulse Resp BP Pulse Ox O2 Del Method 05/09/24 08:45 Room Air 05/09/24 07:39 36.5 C 78 16 133/76 97 Room Air 05/09/24 07:00 87 05/09/24 03:13 36.5 C 76 14 117/73 92 Room Air 05/08/24 23:38 36.4 C L 92 H 14 111/78 95 Room Air 05/08/24 23:00 103 H Laboratory Results Coagulation 05/09/24 Range/Units 07:19 PT 16.0 H (9.0-12.0) Seconds CBC 05/09/24 Range/Units 07:19 WBC 8.24 (4.8-10.8) K/ul RBC 4.84 (4.70-6.10) M/uL Hgb 14.0 (14.0-18.0) g/dl Hct 45.3 (42.0-52.0) % Plt Count 216 (130-400) K/uL Comprehensive Metabolic Panel 05/09/24 Range/Units 07:19 Sodium 134 L (136-145) mmol/L Potassium 4.4 (3.5-5.1) mmol/L Chloride 97 L (98-107) mmol/L Carbon Dioxide 28 (21-32) mmol/L BUN 43 H (6-23) mg/dl Creatinine 1.24 (0.6-1.4) mg/dl Glucose 143 H (70-99(Fasting)) mg/dl Calcium 9.2 (8.6-10.3) mg/dl Intake and Output 05/08/24 05/09/24 05/09/24 22:59 06:59 14:59 Intake Total 660 / 1856.5 696.5 / 1856.5 155.5 / 155.5 Output Total 2550 / 3500 950 / 3500 Balance -1890 / -1643.5 -253.5 / -1643.5 155.5 / 155.5 Intake: IV 496.5 / 996.5 155.5 / 155.5 Heparin Sodium/Dextrose 25,000 496.5 / 996.5 155.5 / 155.5 units In 500 ml @ 1,500 UNITS/ HR 30 mls/hr IV .[id number] [facility] Rx #:[id number] Oral 660 / 860 200 / 860 Output: Urine Amount (Catheter) 2550 / 3500 950 / 3500 Hudson/Indwelling 2550 / 3500 950 / 3500 Other: Weight 112.6 kg Weight Measurement Method Built in [facility]
--- NOTE | 2024-05-09 15:31 | Hospitalist Progress Note ---
Date of Service May 09, 2024 Assessment & Plan (1) Hypoxia: (2) Pulmonary edema: (3) HTN (hypertension): (4) HLD (hyperlipidemia): (5) Atrial fibrillation: (6) Hypothyroidism: (7) Diabetes mellitus, type 2: Plan: 83 y/o M presents to the ED 05/04 from [facility] with worsening SOB and hypoxia (down to 88%) that has been occurring over the last week. Pt does not wear O2 at baseline. Patient is a resident of [facility] and is on Ellipta for the last 6 months. His family visits him on a daily basis and noted that as he was ambulating with his walker to the dining young over this past week that he became more short of breath and required pauses to catch his breath while he was walking. Pt denies orthopnea and reports sleeping in a recliner. Baseline weight around 250 lbs. Noted weight gain of 4-5 lbs over the last week. His torsemide and Aldactone was increased recently to 100 mg daily and 25 mg bid resp. Patient was recently admitted to [facility] 03/06 to 03/09 for A-fib with RVR and acute on chronic exacerbation of HFrEF. Additional past medical history includes A-fib, HFrEF, aqm-vqwytlc-sgbpmicfi diabetes, hypothyroidism, and BPH. He is being managed for the following: Acute on Chronic HFrEF: Hypoxia: Pulmonary edema: Pleural effusion At admission: Leukocytosis 13.18, BNP 393, CT chest neg for pneumonia, UA neg. Trop and resp biofire neg. Chest imaging w/ mod right pleural effusion and mild pulm edema. ECHO: Most recent ECHO from 03/06/24: EF 45-50% which is improved from previous ECHO 10/25: EF45-49%, with Mild MR/TR Cardio on board, being diuresed. Na improved, aldactone resumed. Pulm evaled. Pt declined thoracentesis. Coumadin resumed, hep bridge to continue until pt/inr > 2. INR 1.5 today. Fluid restriction 1500mL, I/O. Repeat CXR reviewed, improved congestion and rt pleural effusion per my interpretation. Afib RVR: pt w/ chronic afib, goes into rvr on and off no associated symptoms. currently rate better controlled. c/w anticoagulation as above. Other chronic medical conditions: Continue with/resume home meds as when able. Hypertension: Takes metoprolol. Hyperlipidemia: Takes pravastatin Hypothyroidism: Takes levothyroxine T2DM: Chronic, takes metformin. Sliding scale insulin while in hospital. BPH: Chronic, takes finasteride. Continue. Continue to follow-up with urology as prior. Disposition: PCP: Dr. Scherer Code Status: VTE Prophylaxis: On hep drip, Coumadin . follow pt/inr Admission and Anticipated Discharge Date Admission Date: May 04, 2024 Subjective Patient was seen and examined at the bedside. Patient was lying in bed, on room air, NAD, resting comfortably. Patient reports eating okay and moving bowels okay, reports no chest pain Patient denies any pain or burning with passing urine. Reports breathing better. Pt w/ episodic afib rvr, denies chest pain. HR better controlled today. Physical Exam Physical Exam: GENERAL: Alert and oriented x3. NAD, on RA. Appears elderly/ill/frail/weak. HEENT: No pallor, no icterus. Pupils equal, round and reactive to light. Oral mucosa moist. NECK: No JVD, no neck masses. HEART: S1 and S2 heard. irregular rate and rhythm. HR in 110s. RESPIRATORY SYSTEM: Normal AP diameter. No accessory muscle use. No wheezing, b/l crackles - improving. Decreased RLL breath sounds - now improving. ABDOMEN: Soft, bowel sounds present, nontender, no distention. CENTRAL NERVOUS SYSTEM: No facial droop. Speech is clear. Obeys simple commands. Moves extremities. EXTREMITIES: trace ble edema, chronic skin changes noted. Results & Data Results & Data Vital Signs (Past 12 Hours) Vital Signs Temp Pulse Pulse Resp BP BP Pulse Ox 05/09/24 11:45 36.5 C 79 18 94/64 L 97 05/09/24 08:45 05/09/24 07:39 36.5 C 78 16 133/76 97 05/09/24 07:00 87 O2 Del Method 05/09/24 11:45 Room Air 05/09/24 08:45 Room Air 05/09/24 07:39 Room Air 05/09/24 07:00
[2024-05-09] MEDS: FUROSEMIDE 40 MG/4 ML VIAL IV SCH (20:40)
[2024-05-10 06:16] LABS: Hematocrit (blood only) 42.2 % (42.0-52.0); Hemoglobin 13.3 g/dl (14.0-18.0); Mean Corpuscular Hemoglobin 28.9 pg (25.0-34.0); Mean Corpuscular Hgb Conc 31.5 g/dL (32.0-36.0); Mean Corpuscular Volume 91.7 fL (80.0-100.0); Mean Platelet Volume 11.1 fL (9.4-12.4); Nucleated RBC # (auto) 0.02 K/uL (0.00-0.12); Nucleated RBC % (auto) 0.2 %; Platelet Count 222 K/uL (130-400); RDW Coefficient of Variation 17.6 % (11.5-14.5); RDW Standard Deviation 58.5 fL (36.4-46.3); White Blood Count 10.24 K/ul (4.8-10.8)
[2024-05-10 06:22] LABS: BUN Creatinine Ratio 38.8 (10-20); Calcium 9.3 mg/dl (8.6-10.3); Creatinine Clr Calc Pharmacy 57.9 ml/min; Est GFR (African American) 63.8 ml/min; Potassium 4.4 mmol/L (3.5-5.1)
[2024-05-10 06:38] LABS: ANTI-Xa, UFH(UnfractionatedHep 0.35 IU/ml (0.3-0.7); INR 1.5 (0.9-1.1); Prothrombin Time 15.6 Seconds (9.0-12.0)
--- NOTE | 2024-05-10 12:23 | Cardiology Progress Note ---
Date of Service May 10, 2024 Assessment & Plan (1) Acute on chronic heart failure with reduced ejection fraction and diastolic dysfunction: (2) Chronic venous insufficiency: (3) Atrial fibrillation with RVR: (4) Pleural effusion: Plan Complex 83-year-old male admitted with acute decompensated diastolic heart failure, volume overload, presumed associated right greater than left pleural effusions. Right-sided thoracentesis considered, declined by patient. Patient with known non-ischemic congestive cardiomyopathy with initial LVEF 20%, 45-50% via February 2024 resting echocardiography. Outpatient diuretic regimen consisted of torsemide 100 mg/day, spironolactone 50 mg/day, and 30 mEq of potassium chloride. Prior use of metolazone resulted in hyponatremia. Additional problems include nonobstructive coronary artery disease (mild via catheterization in April 2010, nonischemic Lexiscan nuclear stress testing January 2023), permanent atrial fibrillation (chronically treated with rate control (metoprolol succinate and digoxin) and chronic anticoagulation with Coumadin), mild nonobstructive carotid artery disease, hyperlipidemia, hypertriglyceridemia, type 2 diabetes mellitus (Jardiance utilized prior to hospitalization) Recommendations: Continue IV diuresis, furosemide 80 mg twice per day, possibly transitioning to oral torsemide in AM of 05/11 Continue spironolactone Prior use of metolazone resulted in hyponatremia. Monitor fluid balance, daily labs Restrict sodium to 1500 mg/day or less Restrict fluids to 2 L/day or less Increase digoxin to five days per week for additional rate control Continue metoprolol succinate (150 AM, 100 PM) CPAP therapy encouraged Continue aspirin and pravastatin, known mild carotid and nonobstructive CAD. Admission and Anticipated Discharge Date Admission Date: May 04, 2024 Supervising Physician Co-Signing Physician Notes I have personally performed a history and physical examination on the patient. I have reviewed the advance practitioner's documentation, and I agree with, and take responsibility for the plan of care. 83-year-old male with acute on chronic heart failure with mildly reduced LV systolic function. Fluid balance -1900 cc. Fair rate control on telemetry. Continue furosemide 80 mg twice daily while hospitalized. Consider transition to torsemide in the next 24-48 hours. Continue spironolactone as ordered. Encourage compliance with CPAP. Geraldo Loza DO, [facility] Subjective Patient seen and examined. Chart, medications, telemetry reviewed. Feeling OK. No complaints. No chest pain. No palpitations. Hudson catheter in place I's/O's -6,653 mL's overall Telemetry: Atrial fibrillation with an acceptably controlled ventricular response at present, with a rapid ventricular response intermittently overnight, without CPAP therapy Review of Systems Review of Systems: Complete review of systems is otherwise as stated above, negative, or noncontributory. Physical Exam Physical Exam: General: A&Ox3. NAD. Elevated BMI HENT: Normocephalic. Atraumatic. Eyes: PER. Conjunctiva pink, sclera clear. Neck: JVD. Heart: Irregularly irregular at 90 bpm. Distant heart sounds. No murmurs appreciated. Lungs: Diminished. Decreased. No wheezes, rales, or rhonchi. Abdomen: Obese. +BS. Soft. Nontender. No masses or organomegaly. Extremities: Trace to 1+ indurated edema. No cellulitis. Stasis changes. No clubbing. No cyanosis. Limited neurological examination is without focal deficits. Results & Data Vital Signs (Past 12 Hours) Vital Signs Temp Pulse Pulse Pulse Resp BP BP 05/10/24 11:10 36.5 C 86 17 123/80 05/10/24 08:45 05/10/24 07:23 36.6 C 79 17 135/82 05/10/24 07:00 76 05/10/24 03:41 36.3 C L 78 16 114/75 Pulse Ox O2 Del Method 05/10/24 11:10 97 Room Air 05/10/24 08:45 Room Air 05/10/24 07:23 95 Room Air 05/10/24 07:00 05/10/24 03:41 96 Room Air Laboratory Results Coagulation 05/10/24 Range/Units 05:38 PT 15.6 H (9.0-12.0) Seconds CBC 05/10/24 Range/Units 05:38 WBC 10.24 (4.8-10.8) K/ul RBC 4.60 L (4.70-6.10) M/uL Hgb 13.3 L (14.0-18.0) g/dl Hct 42.2 (42.0-52.0) % Plt Count 222 (130-400) K/uL Comprehensive Metabolic Panel 05/10/24 Range/Units 05:38 Sodium 133 L (136-145) mmol/L Potassium 4.4 (3.5-5.1) mmol/L Chloride 96 L (98-107) mmol/L Carbon Dioxide 27 (21-32) mmol/L BUN 47 H (6-23) mg/dl Creatinine 1.21 (0.6-1.4) mg/dl Glucose 146 H (70-99(Fasting)) mg/dl Calcium 9.3 (8.6-10.3) mg/dl Intake and Output 05/09/24 05/10/24 05/10/24 22:59 06:59 14:59 Intake Total 544.5 / 1739.0 239.0 / 1739.0 Output Total 376 / 3776 1500 / 3776 1200 / 1200 Balance 168.5 / -2037.0 -1261.0 / -2037.0 -1200 / -1200 Intake: IV 344.5 / 739.0 239.0 / 739.0 Heparin Sodium/Dextrose 25,000 344.5 / 739.0 239.0 / 739.0 units In 500 ml @ 1,500 UNITS/ HR 30 mls/hr IV .[id number] [facility] Rx #:[id number] Oral 200 / 1000 Output: Urine Amount (Catheter) 375 / 3775 1500 / 3775 1200 / 1200 Hudson/Indwelling 375 / 3775 1500 / 3775 1200 / 1200 # Bowel Movements Other: Weight 111.8 kg Weight Measurement Method Built in [facility]
--- NOTE | 2024-05-10 14:39 | Hospitalist Progress Note ---
Date of Service May 10, 2024 Assessment & Plan (1) Hypoxia: (2) Pulmonary edema: (3) HTN (hypertension): (4) HLD (hyperlipidemia): (5) Atrial fibrillation: (6) Hypothyroidism: (7) Diabetes mellitus, type 2: Plan: 83 y/o M presents to the ED 05/04 from [facility] with worsening SOB and hypoxia (down to 88%) that has been occurring over the last week. Pt does not wear O2 at baseline. Patient is a resident of [facility] and is on Ellipta for the last 6 months. His family visits him on a daily basis and noted that as he was ambulating with his walker to the dining young over this past week that he became more short of breath and required pauses to catch his breath while he was walking. Pt denies orthopnea and reports sleeping in a recliner. Baseline weight around 250 lbs. Noted weight gain of 4-5 lbs over the last week. His torsemide and Aldactone was increased recently to 100 mg daily and 25 mg bid resp. Patient was recently admitted to [facility] 03/06 to 03/09 for A-fib with RVR and acute on chronic exacerbation of HFrEF. Additional past medical history includes A-fib, HFrEF, hwq-syhnyci-nsvmtsust diabetes, hypothyroidism, and BPH. He is being managed for the following: Acute on Chronic HFrEF: Hypoxia: Pulmonary edema: Pleural effusion At admission: Leukocytosis 13.18, BNP 393, CT chest neg for pneumonia, UA neg. Trop and resp biofire neg. Chest imaging w/ mod right pleural effusion and mild pulm edema. ECHO: Most recent ECHO from 03/06/24: EF 45-50% which is improved from previous ECHO 10/25: EF45-49%, with Mild MR/TR Cardio on board, being diuresed. Na improved, aldactone resumed 05/09. Pulm evaled. Pt declined thoracentesis. Coumadin resumed, hep bridge to continue until pt/inr > 2. INR 1.5 today. Fluid restriction 1500mL, I/O. Repeat CXR 05/09 reviewed, improved congestion and rt pleural effusion per my interpretation. Afib RVR: pt w/ chronic afib, goes into rvr on and off no associated symptoms. currently rate better controlled. c/w anticoagulation as above. digoxin freq increased to 5x/week. Other chronic medical conditions: Continue with/resume home meds as when able. Hypertension: Takes metoprolol. Hyperlipidemia: Takes pravastatin Hypothyroidism: Takes levothyroxine T2DM: Chronic, takes metformin. Sliding scale insulin while in hospital. BPH: Chronic, takes finasteride. Continue. Continue to follow-up with urology as prior. Disposition: PCP: Dr. Scherer Code Status: VTE Prophylaxis: On hep drip, Coumadin . follow pt/inr Admission and Anticipated Discharge Date Admission Date: May 04, 2024 Subjective Patient was seen and examined at the bedside. Patient was lying in bed, on room air, NAD, resting comfortably. Patient reports eating okay and moving bowels okay, reports no chest pain Patient denies any pain or burning with passing urine. Reports breathing better. Pt's son at bedside, who was also updated on plan of care. Pt w/ episodic afib rvr, denies chest pain. HR better controlled lately. Physical Exam Physical Exam: GENERAL: Alert and oriented x3. NAD, on RA. Appears elderly/ill/frail/weak. HEENT: No pallor, no icterus. Pupils equal, round and reactive to light. Oral mucosa moist. NECK: No JVD, no neck masses. HEART: S1 and S2 heard. irregular rate and rhythm. HR in 110s. RESPIRATORY SYSTEM: Normal AP diameter. No accessory muscle use. No wheezing, b/l crackles - improving. Decreased RLL breath sounds - now improving. ABDOMEN: Soft, bowel sounds present, nontender, no distention. CENTRAL NERVOUS SYSTEM: No facial droop. Speech is clear. Obeys simple commands. Moves extremities. EXTREMITIES: trace ble edema, chronic skin changes noted. Results & Data Results & Data Vital Signs (Past 12 Hours) Vital Signs Temp Pulse Pulse Pulse Resp BP BP 05/10/24 11:10 36.5 C 86 17 123/80 05/10/24 08:45 05/10/24 07:23 36.6 C 79 17 135/82 05/10/24 07:00 76 05/10/24 03:41 36.3 C L 78 16 114/75 Pulse Ox O2 Del Method 05/10/24 11:10 97 Room Air 05/10/24 08:45 Room Air 05/10/24 07:23 95 Room Air 05/10/24 07:00 05/10/24 03:41 96 Room Air
[2024-05-10] MEDS: DIGOXIN 0.125 MG TAB PO SCH (16:20)
[2024-05-11 06:11] LABS: BUN Creatinine Ratio 37.8 (10-20); Calcium 9.6 mg/dl (8.6-10.3); Est GFR (African American) 65.1 ml/min; Est GFR (Non-African American) 56.2 ml/min; Magnesium 2.1 mg/dl (1.7-2.4); Potassium 4.5 mmol/L (3.5-5.1)
[2024-05-11 06:29] LABS: ANTI-Xa, UFH(UnfractionatedHep 0.38 IU/ml (0.3-0.7); INR 1.6 (0.9-1.1); Prothrombin Time 16.2 Seconds (9.0-12.0)
--- NOTE | 2024-05-11 12:00 | Cardiology Progress Note ---
Date of Service May 11, 2024 Assessment & Plan (1) Acute on chronic heart failure with reduced ejection fraction and diastolic dysfunction: (2) Chronic venous insufficiency: (3) Atrial fibrillation with RVR: (4) Pleural effusion: Plan Complex 83-year-old male admitted with acute decompensated diastolic heart failure, volume overload, presumed associated right greater than left pleural effusions. Right-sided thoracentesis considered, declined by patient. Patient with known non-ischemic congestive cardiomyopathy with initial LVEF 20%, 45-50% via February 2024 resting echocardiography. Outpatient diuretic regimen consisted of torsemide 100 mg/day, spironolactone 50 mg/day, and 30 mEq of potassium chloride. Prior use of metolazone resulted in hyponatremia. Additional problems include nonobstructive coronary artery disease (mild via catheterization in April 2010, nonischemic Lexiscan nuclear stress testing January 2023), permanent atrial fibrillation (chronically treated with rate control (metoprolol succinate and digoxin) and chronic anticoagulation with Coumadin), mild nonobstructive carotid artery disease, hyperlipidemia, hypertriglyceridemia, type 2 diabetes mellitus (Jardiance utilized prior to hospitalization) Recommendations: Continue IV furosemide 80 mg twice per day if ongoing hospitalization, transitioning to oral torsemide 100 mg/day on discharge Continue spironolactone Prior use of metolazone resulted in hyponatremia. Monitor fluid balance, daily labs Restrict sodium to 1500 mg/day or less Restrict fluids to 2 L/day or less Digoxin increased to five days per week this admission for additional rate control Continue metoprolol succinate (150 AM, 100 PM) CPAP therapy encouraged Continue aspirin and pravastatin, known mild carotid and nonobstructive CAD. Admission and Anticipated Discharge Date Admission Date: May 04, 2024 Supervising Physician Co-Signing Physician Notes I have personally performed a history and physical examination on the patient. I have reviewed the advance practitioner's documentation, and I agree with, and take responsibility for the plan of care. 83-year-old male with acute on chronic heart failure with mildly reduced LV systolic function. Fluid balance -2800 cc. Fair rate control on telemetry. Continue furosemide 80 mg twice daily while hospitalized. Consider transition to torsemide 100mg daily in the next 24-48 hours. Continue spironolactone as ordered. Encourage compliance with CPAP. Geraldo Loza DO, [facility] Subjective Patient seen and examined. Chart, medications, and telemetry reviewed. Anxious for discharge. Denies chest pain, palpitations, unusual shortness of breath, cough, dizziness, subjective fevers or chills I's/O's: -229, -1643, -2037, -2646, +24 (-8075 mL overall) Telemetry: Atrial fibrillation with occasional ventricular ectopy versus aberrant conduction, heart rates predominantly 70 to 100 bpm, occasionally with rapid ventricular response Review of Systems Review of Systems: Complete review of systems is otherwise as stated above, negative, or noncontributory. Physical Exam Physical Exam: General: A&Ox3. NAD. HENT: Normocephalic. Atraumatic. Eyes: PER. Conjunctiva pink, sclera clear. Neck: No overt JVD Heart: Irregularly irregular at 80 bpm. Distant heart sounds. No murmurs appreciated. Lungs: Diminished. Decreased. No wheezes, rales, or rhonchi. Abdomen: Obese. +BS. Soft. Nontender. No masses or organomegaly. Extremities: Mild indurated edema. No cellulitis. Stasis changes. No clubbing. No cyanosis. Limited neurological examination is without focal deficits. Results & Data Vital Signs (Past 12 Hours) Vital Signs Temp Pulse Pulse Resp BP BP Pulse Ox 05/11/24 11:20 36.6 C 87 18 124/81 99 05/11/24 10:52 89 05/11/24 07:46 05/11/24 07:28 36.4 C L 79 18 117/78 94 05/11/24 03:23 36.5 C 84 18 111/76 96 O2 Del Method 05/11/24 11:20 Room Air 05/11/24 10:52 05/11/24 07:46 Room Air 05/11/24 07:28 Room Air 05/11/24 03:23 BiPAP Laboratory Results Coagulation 05/11/24 Range/Units 05:36 PT 16.2 H (9.0-12.0) Seconds Comprehensive Metabolic Panel 05/11/24 Range/Units 05:36 Sodium 133 L (136-145) mmol/L Potassium 4.5 (3.5-5.1) mmol/L Chloride 95 L (98-107) mmol/L Carbon Dioxide 28 (21-32) mmol/L BUN 45 H (6-23) mg/dl Creatinine 1.19 (0.6-1.4) mg/dl Glucose 161 H (70-99(Fasting)) mg/dl Calcium 9.6 (8.6-10.3) mg/dl Intake and Output 05/10/24 05/11/24 05/11/24 22:59 06:59 14:59 Intake Total 131 / 1155 345 / 1155 24.0 / 24.0 Output Total 3800 2250 / 3800 Balance 130 / -2646 -1905 / -2646 24.0 / 24.0 Intake: IV 131 / 715 345 / 715 24.0 / 24.0 Heparin Sodium/Dextrose 25,000 131 / 715 345 / 715 24.0 / 24.0 units In 500 ml @ 1,500 UNITS/ HR 30 mls/hr IV .[id number] [facility] Rx #:[id number] Output: Urine Amount (Catheter) 2249 / 3800 Hudson/Indwelling 0 / 3800 # Bowel Movements Other: Weight 112.3 kg Weight Measurement Method Built in [facility]
--- NOTE | 2024-05-11 14:59 | Hospitalist Progress Note ---
Date of Service May 11, 2024 Assessment & Plan (1) Hypoxia: (2) Pulmonary edema: (3) HTN (hypertension): (4) HLD (hyperlipidemia): (5) Atrial fibrillation: (6) Hypothyroidism: (7) Diabetes mellitus, type 2: Plan: 83 y/o M presents to the ED 05/04 from [facility] with worsening SOB and hypoxia (down to 88%) that has been occurring over the last week. Pt does not wear O2 at baseline. Patient is a resident of [facility] and is on Ellipta for the last 6 months. His family visits him on a daily basis and noted that as he was ambulating with his walker to the dining young over this past week that he became more short of breath and required pauses to catch his breath while he was walking. Pt denies orthopnea and reports sleeping in a recliner. Baseline weight around 250 lbs. Noted weight gain of 4-5 lbs over the last week. His torsemide and Aldactone was increased recently to 100 mg daily and 25 mg bid resp. Patient was recently admitted to [facility] 03/06 to 03/09 for A-fib with RVR and acute on chronic exacerbation of HFrEF. Additional past medical history includes A-fib, HFrEF, rze-[id number] diabetes, hypothyroidism, and BPH. He is being managed for the following: Acute on Chronic HFrEF: Hypoxia: Pulmonary edema: Pleural effusion At admission: Leukocytosis 13.18, BNP 393, CT chest neg for pneumonia, UA neg. Trop and resp biofire neg. Chest imaging w/ mod right pleural effusion and mild pulm edema. ECHO: Most recent ECHO from 03/06/24: EF 45-50% which is improved from previous ECHO 10/25: EF45-49%, with Mild MR/TR Cardio on board, being diuresed. Na improved, aldactone resumed 05/09. Pulm evaled. Pt declined thoracentesis. Coumadin resumed, hep bridge to continue until pt/inr > 2. INR 1.5 today. Additional 2.5 mg of coumadin today. Fluid restriction 1500mL, I/O. Repeat CXR 05/09 reviewed, improved congestion and rt pleural effusion per my interpretation. Afib RVR: pt w/ chronic afib, goes into rvr on and off no associated symptoms. currently rate better controlled. c/w anticoagulation as above. digoxin freq increased to 5x/week. Other chronic medical conditions: Continue with/resume home meds as when able. Hypertension: Takes metoprolol. Hyperlipidemia: Takes pravastatin Hypothyroidism: Takes levothyroxine T2DM: Chronic, takes metformin. Sliding scale insulin while in hospital. BPH: Chronic, takes finasteride. Continue. Continue to follow-up with urology as prior. Disposition: PCP: Dr. Scherer Code Status: VTE Prophylaxis: On hep drip, Coumadin . follow pt/inr Admission and Anticipated Discharge Date Admission Date: May 04, 2024 Subjective Patient was seen and examined at the bedside. Patient was sitting up in chair, on room air, NAD, resting comfortably. Patient reports eating okay and moving bowels okay, reports no chest pain Reports breathing better. Physical Exam Physical Exam: GENERAL: Alert and oriented x3. NAD, on RA. Appears elderly/ill/frail/weak. HEENT: No pallor, no icterus. Pupils equal, round and reactive to light. Oral mucosa moist. NECK: No JVD, no neck masses. HEART: S1 and S2 heard. irregular rate and rhythm. RESPIRATORY SYSTEM: Normal AP diameter. No accessory muscle use. No wheezing, b/l crackles - improving. Decreased RLL breath sounds - now improving. ABDOMEN: Soft, bowel sounds present, nontender, no distention. CENTRAL NERVOUS SYSTEM: No facial droop. Speech is clear. Obeys simple commands. Moves extremities. EXTREMITIES: trace ble edema, chronic skin changes noted. Results & Data Results & Data Vital Signs (Past 12 Hours) Vital Signs Temp Pulse Pulse Resp BP BP Pulse Ox 05/11/24 14:43 93 H 05/11/24 11:20 36.6 C 87 18 124/81 99 05/11/24 10:52 89 05/11/24 07:46 05/11/24 07:28 36.4 C L 79 18 117/78 94 05/11/24 03:23 36.5 C 84 18 111/76 96 O2 Del Method 05/11/24 14:43 05/11/24 11:20 Room Air 05/11/24 10:52 05/11/24 07:46 Room Air 05/11/24 07:28 Room Air 05/11/24 03:23 BiPAP
[2024-05-11] MEDS: WARFARIN SOD 2.5 MG TAB PO ONE (15:56)
[2024-05-11 22:15] LABS: Appearance Urine Clear (Clear); Bacteria Urine Automated 2+ (None Seen); Bilirubin Urine Negative (Negative); Blood Urine Trace (Negative); Color Urine Yellow; Epithelial Cell Urine Auto 0-2 /hpf (0-2); Glucose Urine UA Negative (Negative); Ketones Urine Negative (Negative); Leukocyte Esterase Urine 2+ (Negative); Nitrite Urine Negative (Negative); Protein Urine Negative (Negative); Specific Gravity Urine 1.006 (1.000-1.030); Urobilinogen Urine Negative (Negative); WBC Urine Automated 21-50 /hpf (0-5)
--- NOTE | 2024-05-12 00:10 | Communication Note ---
Date of Service: May 12, 2024 Made aware by RN of abnormal UA. Patient without abdominal or flank pain complaints. UA WBC esterase Family requested for UA collection as patient somewhat more confused than usual as per RN. AP Complicated UTI Urine CS, ceftriaxone
[2024-05-12] MEDS: cefTRIAXone SODIUM 2,000 MG/50 ML BAG IV SCH (00:48)
[2024-05-12 06:09] LABS: BUN Creatinine Ratio 36.7 (10-20); Calcium 9.5 mg/dl (8.6-10.3); Creatinine Clr Calc Pharmacy 54.9 ml/min; Est GFR (African American) 59.6 ml/min; Est GFR (Non-African American) 51.4 ml/min; Potassium 4.5 mmol/L (3.5-5.1)
[2024-05-12 06:18] LABS: INR 1.8 (0.9-1.1); Prothrombin Time 18.7 Seconds (9.0-12.0)
[2024-05-12 06:31] LABS: ANTI-Xa, UFH(UnfractionatedHep 0.42 IU/ml (0.3-0.7)
--- NOTE | 2024-05-12 12:27 | Cardiology Progress Note ---
Date of Service May 12, 2024 Assessment & Plan (1) Acute on chronic heart failure with reduced ejection fraction and diastolic dysfunction: (2) Chronic venous insufficiency: (3) Atrial fibrillation with RVR: (4) Pleural effusion: Plan Complex 83-year-old male admitted with acute decompensated diastolic heart failure, volume overload, presumed associated right greater than left pleural effusions. Right-sided thoracentesis considered, declined by patient. Patient with known non-ischemic congestive cardiomyopathy with initial LVEF 20%, 45-50% via February 2024 resting echocardiography. Outpatient diuretic regimen consisted of torsemide 100 mg/day, spironolactone 50 mg/day, and 30 mEq of potassium chloride. Prior use of metolazone resulted in hyponatremia. Additional problems include nonobstructive coronary artery disease (mild via catheterization in April 2010, nonischemic Lexiscan nuclear stress testing January 2023), permanent atrial fibrillation (chronically treated with rate control (metoprolol succinate and digoxin) and chronic anticoagulation with Coumadin), mild nonobstructive carotid artery disease, hyperlipidemia, hypertriglyceridemia, type 2 diabetes mellitus (Jardiance utilized prior to hospitalization) Recommendations: Continue IV furosemide 80 mg twice per day if ongoing hospitalization, transitioning to oral torsemide 100 mg/day on discharge Continue spironolactone Prior use of metolazone resulted in hyponatremia. Increase metoprolol succinate (150 AM, 125 PM) Digoxin increased to five days per week this admission for additional rate control Continue aspirin and pravastatin, known mild carotid and nonobstructive CAD. Monitor fluid balance, daily labs Restrict sodium to 1500 mg/day or less Restrict fluids to 2 L/day or less CPAP therapy encouraged Rehabilitation stay post discharge encouraged. Admission and Anticipated Discharge Date Admission Date: May 04, 2024 Supervising Physician Co-Signing Physician Notes I have personally performed a history and physical examination on the patient. I have reviewed the advance practitioner's documentation, and I agree with, and take responsibility for the plan of care. 83-year-old male with acute on chronic heart failure with mildly reduced LV systolic function. Fluid balance -1800 cc. Fair rate control on telemetry. Continue furosemide 80 mg twice daily while hospitalized. Transition to torsemide 100mg daily at discharge. Continue spironolactone as ordered. Encourage compliance with CPAP. Geraldo Loza DO, [facility] Subjective Patient seen and examined. Chart, medications, telemetry reviewed. Son at bedside. More alert today. No chest pain. No shortness of breath. No overt palpitations. Cumulative I's/O's -10 L overall Telemetry: Atrial fibrillation with elevated ventricular rates in early evening intermittently throughout the night, controlled during the day Review of Systems Review of Systems: Complete review of systems is otherwise as stated above, negative, or noncontributory. Physical Exam Physical Exam: General: A&Ox3. NAD. HENT: Normocephalic. Atraumatic. Eyes: PER. Conjunctiva pink, sclera clear. Neck: No overt JVD Heart: Irregularly irregular at 80 bpm. Distant heart sounds. No murmurs appreciated. Lungs: Absent breath sounds at the right base. Left basilar rales. No wheeze. Abdomen: Obese. +BS. Soft. Nontender. No masses or organomegaly. Hudson catheter in place Extremities: Mild indurated edema. No cellulitis. Stasis changes. No clubbing. No cyanosis. Limited neurological examination is without focal deficits. Results & Data Vital Signs (Past 12 Hours) Vital Signs Temp Pulse Resp BP Pulse Ox O2 Del Method 05/12/24 12:00 36.2 C L 99 H 20 129/71 95 Room Air 05/12/24 08:00 36.4 C L 98 H 18 114/73 92 Room Air 05/12/24 07:30 Room Air 05/12/24 03:43 36.2 C L 81 16 102/66 91 Room Air Laboratory Results Coagulation 05/12/24 Range/Units 05:32 PT 18.7 H (9.0-12.0) Seconds Comprehensive Metabolic Panel 05/12/24 Range/Units 05:32 Sodium 131 L (136-145) mmol/L Potassium 4.5 (3.5-5.1) mmol/L Chloride 94 L (98-107) mmol/L Carbon Dioxide 27 (21-32) mmol/L BUN 47 H (6-23) mg/dl Creatinine 1.28 (0.6-1.4) mg/dl Glucose 145 H (70-99(Fasting)) mg/dl Calcium 9.5 (8.6-10.3) mg/dl Intake and Output 05/11/24 05/12/24 05/12/24 22:59 06:59 14:59 Intake Total 1083.5 / 1347.5 17.5 / 17.5 Output Total 2274 / 3574 Balance -1191.5 / -2227.5 17.5 / 17.5 Intake: IV 733.5 / 757.5 17.5 / 17.5 Heparin Sodium/Dextrose 25,000 683.5 / 707.5 17.5 / 17.5 units In 500 ml @ 1,500 UNITS/ HR 30 mls/hr IV .[id number] [facility] Rx #:[id number] cefTRIAXone SODIUM 2,000 mg In 50 / 50 50 ml @ 100 mls/hr IV Q24H [facility] Rx#:[id number] Oral 350 / 590 Output: Urine Amount (Catheter) 2274 Hudson/Indwelling 2274 Other: Weight 111.1 kg Weight Measurement Method Built in [facility]
--- NOTE | 2024-05-12 14:43 | Hospitalist Progress Note ---
Date of Service May 12, 2024 Assessment & Plan (1) Hypoxia: (2) Pulmonary edema: (3) HTN (hypertension): (4) HLD (hyperlipidemia): (5) Atrial fibrillation: (6) Hypothyroidism: (7) Diabetes mellitus, type 2: Plan: 83 y/o M presents to the ED 05/04 from [facility] with worsening SOB and hypoxia (down to 88%) that has been occurring over the last week. Pt does not wear O2 at baseline. Patient is a resident of [facility] and is on Ellipta for the last 6 months. His family visits him on a daily basis and noted that as he was ambulating with his walker to the dining young over this past week that he became more short of breath and required pauses to catch his breath while he was walking. Pt denies orthopnea and reports sleeping in a recliner. Baseline weight around 250 lbs. Noted weight gain of 4-5 lbs over the last week. His torsemide and Aldactone was increased recently to 100 mg daily and 25 mg bid resp. Patient was recently admitted to [facility] 03/06 to 03/09 for A-fib with RVR and acute on chronic exacerbation of HFrEF. Additional past medical history includes A-fib, HFrEF, nce-qudvkrp-huobgntoz diabetes, hypothyroidism, and BPH. He is being managed for the following: Acute on Chronic HFrEF: Hypoxia: Pulmonary edema: Pleural effusion At admission: Leukocytosis 13.18, BNP 393, CT chest neg for pneumonia, UA neg. Trop and resp biofire neg. Chest imaging w/ mod right pleural effusion and mild pulm edema. ECHO: Most recent ECHO from 03/06/24: EF 45-50% which is improved from previous ECHO 10/25: EF45-49%, with Mild MR/TR Cardio on board, being diuresed. Na improved, aldactone resumed 05/09. Pulm evaled. Pt declined thoracentesis. Coumadin resumed, hep bridge to continue until pt/inr > 2. INR 1.8 today. Additional 2.5 mg of coumadin 05/11. Fluid restriction 1500mL, I/O. Repeat CXR 05/09 reviewed, improved congestion and rt pleural effusion per my interpretation. Afib RVR: pt w/ chronic afib, goes into rvr on and off no associated symptoms. currently rate better controlled. c/w anticoagulation as above. digoxin freq increased to 5x/week. Other chronic medical conditions: Continue with/resume home meds as when able. Hypertension: Takes metoprolol. Hyperlipidemia: Takes pravastatin Hypothyroidism: Takes levothyroxine T2DM: Chronic, takes metformin. Sliding scale insulin while in hospital. BPH: Chronic, takes finasteride. Continue. Continue to follow-up with urology as prior. Disposition: PCP: Dr. Scherer Code Status: VTE Prophylaxis: On hep drip, Coumadin . follow pt/inr Admission and Anticipated Discharge Date Admission Date: May 04, 2024 Subjective Patient was seen and examined at the bedside. Patient was sitting up in chair, on room air, NAD, resting comfortably. Patient reports eating okay and moving bowels okay, reports no chest pain Reports breathing better. Pt's son at bedside who was updated on plan of care, answered all his questions. They are thinking they want to have him go to rehab this time. Physical Exam Physical Exam: GENERAL: Alert and oriented x3. NAD, on RA. Appears elderly/ill/frail/weak. HEENT: No pallor, no icterus. Pupils equal, round and reactive to light. Oral mucosa moist. NECK: No JVD, no neck masses. HEART: S1 and S2 heard. irregular rate and rhythm. RESPIRATORY SYSTEM: Normal AP diameter. No accessory muscle use. No wheezing, b/l crackles - improving. Decreased RLL breath sounds - now improving. ABDOMEN: Soft, bowel sounds present, nontender, no distention. CENTRAL NERVOUS SYSTEM: No facial droop. Speech is clear. Obeys simple commands. Moves extremities. EXTREMITIES: trace ble edema, chronic skin changes noted. Results & Data Results & Data Vital Signs (Past 12 Hours) Vital Signs Temp Pulse Resp BP Pulse Ox O2 Del Method 05/12/24 12:00 36.2 C L 99 H 20 129/71 95 Room Air 05/12/24 08:00 36.4 C L 98 H 18 114/73 92 Room Air 05/12/24 07:30 Room Air 05/12/24 03:43 36.2 C L 81 16 102/66 91 Room Air
[2024-05-12] MEDS: METOPROLOL SUCC 25MG EXT REL TAB PO SCH (22:24)
[2024-05-13 07:30] LABS: ANTI-Xa, UFH(UnfractionatedHep 0.47 IU/ml (0.3-0.7); INR 1.7 (0.9-1.1)
[2024-05-13 07:44] LABS: Calcium 9.6 mg/dl (8.6-10.3); Potassium 4.4 mmol/L (3.5-5.1)
[2024-05-13 08:41] LABS: Creatinine Clr Calc Pharmacy 57.4 ml/min; Est GFR (African American) 63.2 ml/min; Est GFR (Non-African American) 54.5 ml/min
[2024-05-13] MEDS: WARFARIN SOD 2.5 MG TAB PO ONE (10:21)
--- NOTE | 2024-05-13 10:53 | Cardiology Progress Note ---
Date of Service May 13, 2024 Assessment & Plan (1) Acute on chronic heart failure with reduced ejection fraction and diastolic dysfunction: (2) Chronic venous insufficiency: (3) Atrial fibrillation with RVR: (4) Pleural effusion: Plan Complex 83-year-old male admitted with acute decompensated diastolic heart failure, volume overload, presumed associated right greater than left pleural effusions. Right-sided thoracentesis considered and declined by patient. Patient with known non-ischemic congestive cardiomyopathy with initial LVEF 20%, 45-50% via February 2024 resting echocardiography. Outpatient diuretic regimen consisted of torsemide 100 mg/day, spironolactone 50 mg/day, and 30 mEq of potassium chloride. Prior use of metolazone resulted in hyponatremia. Additional problems include nonobstructive coronary artery disease (mild via catheterization in April 2010, nonischemic Lexiscan nuclear stress testing January 2023), permanent atrial fibrillation (chronically treated with rate control (metoprolol succinate and digoxin) and chronic anticoagulation with Coumadin), mild nonobstructive carotid artery disease, hyperlipidemia, hypertriglyceridemia, type 2 diabetes mellitus (Jardiance utilized prior to hospitalization) Recommendations: Continue IV furosemide 80 mg twice per day if ongoing hospitalization, transitioning to oral torsemide 100 mg/day on discharge Continue spironolactone No metolazone, RE: hyponatremia. Increase metoprolol succinate to 150 mg twice a day Digoxin increased to five days per week this admission Continue aspirin and pravastatin, known mild carotid and nonobstructive CAD. Eliquis (5 mg BID) anticoagulation discussed with patient and family, they would like to transition unless cost prohibitive. Monitor fluid balance, daily labs Restrict sodium to 1500 mg/day or less Restrict fluids to 2 L/day or less CPAP therapy encouraged Admission and Anticipated Discharge Date Admission Date: May 04, 2024 Supervising Physician Co-Signing Physician Notes I have personally performed a history and physical examination on the patient. I have reviewed the advance practitioner's documentation, and I agree with, and take responsibility for the plan of care. 83-year-old male with acute on chronic heart failure with mildly reduced LV systolic function. Elevated heart rate with activity noted this morning. Patient asymptomatic. Fluid balance -2796 cc. Continue IV furosemide twice daily during hospitalization with transition to oral torsemide 100 mg daily on discharge. Discussed transition from warfarin to Eliquis 5 mg twice daily. Patient agreeable. Continue spironolactone BID as ordered. Encourage compliance with CPAP. Patient stable for transfer to rehab facility when bed available. Geraldo Loza DO, [facility] Subjective Patient seen and examined. Chart, medications, telemetry reviewed. Oldest son, Jose Bauer, at bedside. Prolonged discussion with patient regarding hospitalization and postdischarge rehabilitation. Heart rates elevated this morning prior to receiving oral metoprolol, aided by IV Lopressor Cumulative I's/O's -13.3 L overall Telemetry: Rate controlled atrial fibrillation throughout most of the night, transiently with elevated ventricular response earlier this morning. No significant bradycardia. No periods of sinus. Review of Systems Review of Systems: Complete review of systems is otherwise as stated above, negative, or noncontributory. Physical Exam Physical Exam: General: A&Ox3. NAD. HENT: Normocephalic. Atraumatic. Eyes: PER. Conjunctiva pink, sclera clear. Neck: No overt JVD Heart: Irregularly irregular at 90 bpm. Distant heart sounds. No murmurs appr eciated. Lungs: Absent breath sounds at the right base. Left basilar rales. No wheeze. Abdomen: Obese. +BS. Soft. Nontender. No masses or organomegaly. Hudson catheter in place Extremities: Mild indurated edema. No cellulitis. Stasis changes. No clubbing. No cyanosis. Limited neurological examination is without focal deficits. Results & Data Vital Signs (Past 12 Hours) Vital Signs Temp Pulse Pulse Resp BP BP Pulse Ox 05/13/24 07:44 36.4 C L 88 20 102/96 96 05/13/24 03:13 36.7 C 84 16 149/89 H 93 05/12/24 23:00 05/12/24 22:59 36.8 C 81 16 133/85 97 O2 Del Method 05/13/24 07:44 Room Air 05/13/24 03:13 CPAP 05/12/24 23:00 CPAP 05/12/24 22:59 CPAP Laboratory Results Coagulation 05/13/24 05/13/24 Range/Units 05:54 07:04 PT Cancelled 18.0 H Comprehensive Metabolic Panel 05/13/24 05/13/24 Range/Units 05:54 07:04 Sodium Cancelled 133 L Potassium Cancelled 4.4 Chloride Cancelled 93 L Carbon Dioxide Cancelled 29 BUN Cancelled 50 H Creatinine Cancelled 1.22 Glucose Cancelled 151 H Calcium Cancelled 9.6 Intake and Output 05/12/24 05/13/24 05/13/24 22:59 06:59 14:59 Intake Total 468.5 / 761.0 100 / 761.0 357.5 / 357.5 Output Total 700 / 4050 2500 / 4050 Balance -231.5 / -3289.0 -2400 / -3289.0 357.5 / 357.5 Intake: IV 318.5 / 386.0 50 / 386.0 357.5 / 357.5 Heparin Sodium/Dextrose 25,000 318.5 / 336.0 357.5 / 357.5 units In 500 ml @ 1,500 UNITS/ HR 30 mls/hr IV .[id number] [facility] Rx #:[id number] cefTRIAXone SODIUM 2,000 mg In 50 / 50 50 ml @ 100 mls/hr IV Q24H [facility] Rx#:[id number] Oral 150 / 375 50 / 375 Output: Urine Amount (Catheter) 700 / 3200 2500 / 3200 Hudson/Indwelling 700 / 3200 2500 / 3200 Other: Weight 111.1 kg 111.6 kg Weight Measurement Method Built in [facility]
--- NOTE | 2024-05-13 14:22 | Hospitalist Progress Note ---
Date of Service May 13, 2024 Assessment & Plan (1) Hypoxia: (2) Pulmonary edema: (3) HTN (hypertension): (4) HLD (hyperlipidemia): (5) Atrial fibrillation: (6) Hypothyroidism: (7) Diabetes mellitus, type 2: Plan: 83 y/o M presents to the ED 05/04 from [facility] with worsening SOB and hypoxia (down to 88%) that has been occurring over the last week. Pt does not wear O2 at baseline. Patient is a resident of [facility] and is on Ellipta for the last 6 months. His family visits him on a daily basis and noted that as he was ambulating with his walker to the dining young over this past week that he became more short of breath and required pauses to catch his breath while he was walking. Pt denies orthopnea and reports sleeping in a recliner. Baseline weight around 250 lbs. Noted weight gain of 4-5 lbs over the last week. His torsemide and Aldactone was increased recently to 100 mg daily and 25 mg bid resp. Patient was recently admitted to [facility] 03/06 to 03/09 for A-fib with RVR and acute on chronic exacerbation of HFrEF. Additional past medical history includes A-fib, HFrEF, rzw-nrplswh-fczmutifj diabetes, hypothyroidism, and BPH. He is being managed for the following: Acute on Chronic HFrEF: Hypoxia: Pulmonary edema: Pleural effusion At admission: Leukocytosis 13.18, BNP 393, CT chest neg for pneumonia, UA neg. Trop and resp biofire neg. Chest imaging w/ mod right pleural effusion and mild pulm edema. ECHO: Most recent ECHO from 03/06/24: EF 45-50% which is improved from previous ECHO 10/25: EF45-49%, with Mild MR/TR Cardio on board, being diuresed. Na improved, aldactone resumed 05/09. Pulm evaled. Pt declined thoracentesis. Coumadin resumed, hep bridge to continue until pt/inr > 2. INR 1.8 today. Additional 2.5 mg of coumadin 05/11 and 05/13. Per Cardio's d/w fam and patient, they would like to transition to eliquis, eliquis sent for cost eval. Fluid restriction 1500mL, I/O. Repeat CXR 05/09 reviewed, improved congestion and rt pleural effusion per my interpretation. Afib RVR: pt w/ chronic afib, goes into rvr on and off no associated symptoms. currently rate better controlled. c/w anticoagulation as above. digoxin freq i ncreased to 5x/week. Metoprolol increased to 150 mg bid. UTI: 05/11 ucx +ve for E coli. complete rocephin x 5 days. Other chronic medical conditions: Continue with/resume home meds as when able. Hypertension: Takes metoprolol. Hyperlipidemia: Takes pravastatin Hypothyroidism: Takes levothyroxine T2DM: Chronic, takes metformin. Sliding scale insulin while in hospital. BPH: Chronic, takes finasteride. Continue. Continue to follow-up with urology as prior. Disposition: PCP: Dr. Scherer Code Status: VTE Prophylaxis: On hep drip, Coumadin . follow pt/inr Admission and Anticipated Discharge Date Admission Date: May 04, 2024 Subjective Patient was seen and examined at the bedside. Patient was sitting up in chair, on room air, NAD, resting comfortably. Patient reports eating okay and moving bowels okay, reports no chest pain Reports no issues w/ breathing. Pt's son at bedside who was updated on plan of care, answered all his questions. Pt's was also update over the phone at bedside. answered all their questions. they reiterated their desire to go to rehab, same was communicated to CM. Physical Exam Physical Exam: GENERAL: Alert and oriented x3. NAD, on RA. Appears elderly/ill/frail/weak. HEENT: No pallor, no icterus. Pupils equal, round and reactive to light. Oral mucosa moist. NECK: No JVD, no neck masses. HEART: S1 and S2 heard. irregular rate and rhythm. RESPIRATORY SYSTEM: Normal AP diameter. No accessory muscle use. No wheezing, b/l crackles - improving. Decreased RLL breath sounds - now improving. ABDOMEN: Soft, bowel sounds present, nontender, no distention. CENTRAL NERVOUS SYSTEM: No facial droop. Speech is clear. Obeys simple commands. Moves extremities. EXTREMITIES: trace ble edema, chronic skin changes noted. Results & Data Results & Data Vital Signs (Past 12 Hours) Vital Signs Temp Pulse Pulse Resp BP BP Pulse Ox 05/13/24 11:38 36.5 C 88 20 115/61 94 05/13/24 07:44 36.4 C L 88 20 102/96 96 05/13/24 07:30 05/13/24 03:13 36.7 C 84 16 149/89 H 93 O2 Del Method 05/13/24 11:38 Room Air 05/13/24 07:44 Room Air 05/13/24 07:30 Room Air 05/13/24 03:13 CPAP
[2024-05-14 07:57] LABS: Hematocrit (blood only) 45.3 % (42.0-52.0); Hemoglobin 14.2 g/dl (14.0-18.0); Mean Corpuscular Hemoglobin 28.6 pg (25.0-34.0); Mean Corpuscular Hgb Conc 31.3 g/dL (32.0-36.0); Mean Corpuscular Volume 91.3 fL (80.0-100.0); Mean Platelet Volume 10.8 fL (9.4-12.4); Platelet Count 221 K/uL (130-400); RDW Coefficient of Variation 17.2 % (11.5-14.5); RDW Standard Deviation 56.9 fL (36.4-46.3); Red Blood Count 4.96 M/uL (4.70-6.10); White Blood Count 8.85 K/ul (4.8-10.8)
[2024-05-14 08:16] LABS: BUN Creatinine Ratio 46.2 (10-20); Calcium 9.4 mg/dl (8.6-10.3); Creatinine Clr Calc Pharmacy 59.1 ml/min; Est GFR (African American) 66.4 ml/min; Est GFR (Non-African American) 57.3 ml/min; Magnesium 2.1 mg/dl (1.7-2.4); Phosphorus 4.4 mg/dl (2.5-4.9); Potassium 4.6 mmol/L (3.5-5.1)
[2024-05-14 08:41] LABS: INR 1.8 (0.9-1.1); Prothrombin Time 18.9 Seconds (9.0-12.0)
[2024-05-14] MEDS: POLYETHYLENE (MIRALAX) 17 GM PACK PO PRN (09:14)
--- NOTE | 2024-05-14 11:22 | Cardiology Progress Note ---
Date of Service May 14, 2024 Assessment & Plan (1) Acute on chronic heart failure with reduced ejection fraction and diastolic dysfunction: (2) Chronic venous insufficiency: (3) Atrial fibrillation with RVR: (4) Pleural effusion: Plan Complex 83-year-old male admitted with acute decompensated diastolic heart failure, volume overload, presumed associated right greater than left pleural effusions. Right-sided thoracentesis considered and declined by patient. Patient with known non-ischemic congestive cardiomyopathy with initial LVEF 20%, 45-50% via February 2024 resting echocardiography. Outpatient diuretic regimen consisted of torsemide 100 mg/day, spironolactone 50 mg/day, and 30 mEq of potassium chloride. Prior use of metolazone resulted in hyponatremia. Additional problems include nonobstructive coronary artery disease (mild via catheterization in April 2010, nonischemic Lexiscan nuclear stress testing January 2023), permanent atrial fibrillation (chronically treated with rate control (metoprolol succinate and digoxin) and chronic anticoagulation with Coumadin), mild nonobstructive carotid artery disease, hyperlipidemia, hypertriglyceridemia, type 2 diabetes mellitus (Jardiance utilized prior to hospitalization) Recommendations: * Discontinue IV furosemide, transitioning to oral torsemide at 100 mg/day in AM of 05/15 * Transition Heparin/Coumadin to to Eliquis anticoagulation, 5 mg twice a day * Increase activity as tolerated * Please contact with any questions or concerns. * Outpatient cardiology follow-up after rehabilitation stay Admission and Anticipated Discharge Date Admission Date: May 04, 2024 Supervising Physician Co-Signing Physician Notes I have reviewed the advance practitioner's documentation, and I agree with, and take responsibility for the plan of care. Subjective Patient seen and examined. Chart, medications, telemetry reviewed. Oldest son, Jose Bauer, and Khushbu at bedside Feeling good. No current complaints. Hudson catheter removed about one hour ago. No chest pain or difficulty breathing, Cumulative I's/O's -14.5 L overall Telemetry: Rate controlled atrial fibrillation with occasional PVC's versus aberrant conduction. Review of Systems Review of Systems: Complete review of systems is otherwise as stated above, negative, or noncontributory. Physical Exam Physical Exam: General: A&Ox3. NAD. HENT: Normocephalic. Atraumatic. Eyes: PER. Conjunctiva pink, sclera clear. Neck: No overt JVD Heart: Irregularly irregular at 70 bpm. Distant heart sounds. No murmurs appreciated. Lungs: Diminished at the right base. Clear on the left. No wheeze. Abdomen: Obese. +BS. Soft. Nontender. No masses or organomegaly. Extremities: No edema. Chronic erythema and stasis changes. No overt cellulitis. No clubbing. No cyanosis. Limited neurological examination is without focal deficits. Results & Data Vital Signs (Past 12 Hours) Vital Signs Temp Pulse Pulse Resp BP Pulse Ox O2 Del Method 05/14/24 08:25 36.4 C 92 H 20 111/79 99 Room Air 05/14/24 07:36 78 05/14/24 07:30 Room Air 05/14/24 04:01 36.4 C L 80 20 122/67 97 Room Air Laboratory Results Coagulation 05/14/24 Range/Units 07:18 PT 18.9 H (9.0-12.0) Seconds CBC 05/14/24 Range/Units 07:18 WBC 8.85 (4.8-10.8) K/ul RBC 4.96 (4.70-6.10) M/uL Hgb 14.2 (14.0-18.0) g/dl Hct 45.3 (42.0-52.0) % Plt Count 221 (130-400) K/uL Comprehensive Metabolic Panel 05/14/24 Range/Units 07:18 Sodium 132 L (136-145) mmol/L Potassium 4.6 (3.5-5.1) mmol/L Chloride 94 L (98-107) mmol/L Carbon Dioxide 28 (21-32) mmol/L BUN 54 H (6-23) mg/dl Creatinine 1.17 (0.6-1.4) mg/dl Glucose 167 H (70-99(Fasting)) mg/dl Calcium 9.4 (8.6-10.3) mg/dl Intake and Output 05/13/24 05/14/24 05/14/24 22:59 06:59 14:59 Intake Total 638.5 / 2355.5 481.5 / 2355.5 271 / 271 Output Total 500 / 3500 1600 / 3500 Balance 138.5 / -1144.5 -1118.5 / -1144.5 271 / 271 Intake: IV 238.5 / 950.5 231.5 / 950.5 271 / 271 Heparin Sodium/Dextrose 25,000 238.5 / 900.5 181.5 / 900.5 271 / 271 units In 500 ml @ 1,500 UNITS/ HR 30 mls/hr IV .[id number] [facility] Rx #:[id number] cefTRIAXone SODIUM 2,000 mg In 50 / 50 50 ml @ 100 mls/hr IV Q24H [facility] Rx#:[id number] Oral 400 / 1405 250 / 1405 Output: Urine Amount (Catheter) 500 / 3500 1600 / 3500 Hudson/Indwelling 500 / 3500 1600 / 3500 # Bowel Movements 0 / 0 0 / 0 Other: Weight 108.8 kg Weight Measurement Method Built in [facility]
[2024-05-14] MEDS ORDERED: MICONAZOLE NITRATE POWDER 85 GM EXT PRN (12:32)
--- NOTE | 2024-05-14 15:24 | Hospitalist Progress Note ---
Date of Service May 14, 2024 Assessment & Plan (1) Hypoxia: (2) Pulmonary edema: (3) HTN (hypertension): (4) HLD (hyperlipidemia): (5) Atrial fibrillation: (6) Hypothyroidism: (7) Diabetes mellitus, type 2: Plan: 83 y/o M presents to the ED 05/04 from [facility] with worsening SOB and hypoxia (down to 88%) that has been occurring over the last week. Pt does not wear O2 at baseline. Patient is a resident of [facility] and is on Ellipta for the last 6 months. His family visits him on a daily basis and noted that as he was ambulating with his walker to the dining young over this past week that he became more short of breath and required pauses to catch his breath while he was walking. Pt denies orthopnea and reports sleeping in a recliner. Baseline weight around 250 lbs. Noted weight gain of 4-5 lbs over the last week. His torsemide and Aldactone was increased recently to 100 mg daily and 25 mg bid resp. Patient was recently admitted to [facility] 03/06 to 03/09 for A-fib with RVR and acute on chronic exacerbation of HFrEF. Additional past medical history includes A-fib, HFrEF, [id number] diabetes, hypothyroidism, and BPH. He is being managed for the following: Acute on Chronic HFrEF: Hypoxia: Pulmonary edema: Pleural effusion At admission: Leukocytosis 13.18, BNP 393, CT chest neg for pneumonia, UA neg. Trop and resp biofire neg. Chest imaging w/ mod right pleural effusion and mild pulm edema. ECHO: Most recent ECHO from 03/06/24: EF 45-50% which is improved from previous ECHO 10/25: EF45-49%, with Mild MR/TR Cardio on board, being diuresed. Na improved, aldactone resumed 05/09. Pulm evaled-Appreciate input and recommendation Pt declined thoracentesis. Coumadin resumed, hep bridge to continue until pt/inr > 2. INR 1.8 today. Additional 2.5 mg of coumadin 05/11 and 05/13. Per Cardio's d/w fam and patient, they would like to transition to eliquis, eliquis sent for cost eval. Fluid restriction 1500mL, I/O. Repeat CXR 9/23 reviewed, improved congestion and rt pleural effusion per my interpretation. Remains stable medically with no more cardiac symptoms and denies any respiratory symptoms at rest Has been on heparin and Coumadin with INR at 1.7 Will check INR tomorrow and likely restart Eli[facility] Will DC Hudson catheter and await urination Afib RVR: Pt w/ chronic afib, Goes into rvr on and off, no associated symptoms. currently rate better controlled. c/w anticoagulation as above. Digoxin freq increased to 5x/week. Metoprolol increased to 150 mg bid. UTI: 05/11 ucx +ve for E coli. complete rocephin x 5 days. Other chronic medical conditions: Continue with/resume home meds as when able. Hypertension: Takes metoprolol. Hyperlipidemia: Takes pravastatin Hypothyroidism: Takes levothyroxine T2DM: Chronic, takes metformin. Sliding scale insulin while in hospital. BPH: Chronic, takes finasteride. Continue. Continue to follow-up with urology as prior. Disposition: PCP: Dr. Scherer Code Status: VTE Prophylaxis: On hep drip, Coumadin . follow pt/inr Discussed with the son Admission and Anticipated Discharge Date Admission Date: May 04, 2024 Subjective 05/14/2024 The patient was seen and examined in telemetry unit in presence of the son He has been feeling much better and denies any significant symptoms [facility] Review of Systems Review of Systems: All systems reviewed and are unremarkable except as noted below Physical Exam Physical Exam: Sitting on a chair without any acute distress Constitutional: well developed, well nourished, + ill appearing and + obese Eyes: PERRL, conjunctivae normal, anicteric sclerae ENMT: external ear and nose normal, oropharynx normal Neck: trachea midline, no thyromegaly Respiratory: no respiratory distress Auscultation: + diminished lung sounds and + crackles (Minimal crackles at the bases) Cardiovascular: Rate/Rhythm: regular rate and regular rhythm; not tachycardic Heart Sounds: normal S1 and normal S2; no murmur Extremities: + edema (Trace edema bilaterally with chronic skin changes) Gastrointestinal (Abdomen): Inspection/Auscultation: normal bowel sounds; abdomen not distended Percussion/Palpation: abdomen soft; abdomen nontender Musculoskeletal: No acute arthritis involving any of the joint Neurologic: normal touch/pain/proprioception and moves all extremities; no focal motor deficits Psychiatric: A+Ox3, euthymic affect Lymphatic: no cervical or axillary lymphadenopathy Results & Data Results & Data Vital Signs (Past 12 Hours) Vital Signs Temp Pulse Pulse Resp BP Pulse Ox O2 Del Method 05/14/24 15:15 36.5 C 70 18 129/69 97 Room Air 05/14/24 11:35 36.3 C L 88 18 102/60 95 Room Air 05/14/24 08:25 36.4 C 92 H 20 111/79 99 Room Air 05/14/24 07:36 78 05/14/24 07:30 Room Air 05/14/24 04:01 36.4 C L 80 20 122/67 97 Room Air Laboratory Results Short CBC 05/14/24 Range/Units 07:18 WBC 8.85 (4.8-10.8) K/ul Hgb 14.2 (14.0-18.0) g/dl Hct 45.3 (42.0-52.0) % Plt Count 221 (130-400) K/uL [facility] 05/14/24 07:18 Sodium 132 L Potassium 4.6 Chloride 94 L Carbon Dioxide 28 BUN 54 H Creatinine 1.17 Glucose 167 H Calcium 9.4 Medications Administered Current Inpatient Medications Acetaminophen (Acetaminophen 325 Mg Tab) 650 mg PO Q4H PRN PRN Reason: Pain or Fever Stop: 06/03/24 16:45 Last Admin: 05/05/24 17:47 Dose: 650 mg Al Hydrox/Mg Hydrox/Simethicone (Aluminum/Magnesium Susp 30 Ml Udc) 15 ml PO Q4H PRN PRN Reason: Dyspepsia Stop: 06/03/24 16:45 Allopurinol (Allop[facility]ol 300 Mg Tab) [facility] Stop: 06/04/24 08:59 Last Admin: 05/14/24 08:12 Dose: 300 mg Apixaban (Apixaban 5 Mg Tablet) 5 mg PO BID [facility] Stop: 06/13/24 20:59 Aspirin (Aspirin 81 Mg Ectab) 81 mg PO QAM [facility] Stop: 06/04/24 08:59 Last Admin: 05/14/24 08:12 Dose: 81 mg Calcium Carbonate (Calcium Carbonate 500 Mg Chewable Tab) 500 mg PO BID PRN PRN Reason: gerd Stop: 06/03/24 17:09 Last Admin: 05/05/24 08:41 Dose: 500 mg Dextrose (Dextrose 50% 50 Ml Syringe) 25 - 50 ml IV UD PRN; Protocol PRN Reason: Hypoglycemia Protocol Stop: 06/03/24 16:45 Digoxin (Digoxin 0.125 Mg Tab) 0.125 mg PO [id number]@1600 [facility] Stop: 06/09/24 15:59 Last Admin: 05/13/24 16:40 Dose: 0.125 mg Famotidine (Famotidine 20 Mg Tab) 20 mg PO QAM [facility] Stop: 06/04/24 08:59 Last Admin: 05/14/24 08:10 Dose: 20 mg Finasteride (Finasteride 5 Mg Tab) 5 mg PO QAM [facility] Stop: 06/04/24 08:59 Last Admin: 05/14/24 08:10 Dose: 5 mg Fluticasone Propionate (Fluticasone Propionate Na Spr 16 Gm Btl) 2 sprays NA BID PRN PRN Reason: Nasal Congestion Stop: 06/03/24 16:48 Furosemide (Furosemide 40 Mg/4 Ml Vial) 80 mg IV BID [facility] Stop: 05/14/24 23:59 Last Admin: 05/14/24 08:44 Dose: 80 mg Glucagon (Glucagon For Inj 1 Mg Vial) 1 mg SQ UD PRN; Protocol PRN Reason: Hypoglycemia Protocol Stop: 06/03/24 16:45 Glucose (Glucose 40% Gel 15 Gm Tube) 15 - 30 gm PO UD PRN; Protocol PRN Reason: Hypoglycemia Protocol Stop: 06/03/24 16:45 Glucose (Glucose 10 Tab/Tube) 4 - 8 tab PO UD PRN; Protocol PRN Reason: Hypoglycemia Treatment Stop: 06/03/24 16:45 Ceftriaxone Sodium (Rocephin) 2,000 mg in 50 mls @ 100 mls/hr IV Q24H [facility] Stop: 05/22/24 00:14 Last Infusion: 05/14/24 01:11 Dose: Infused Insulin Aspart (Insulin Aspart Per Unit Charge) 0 units SC ACHS [facility] Stop: 06/03/24 16:45 Last Admin: 05/14/24 12:30 Dose: 8 units Levothyroxine Sodium (Levothyroxine Sodium 88 Mcg Tablet) 88 mcg PO DAILYBB [facility] Stop: 06/04/24 06:29 Last Admin: 05/14/24 05:56 Dose: 88 mcg Magnesium Hydroxide (Magnesium Hydroxide Susp 30 Ml Udc) 30 ml PO Q12H PRN PRN Reason: Constipation Stop: 06/03/24 16:45 Metoprolol Succinate (Metoprolol Succ 50mg Ext Rel Tab) 150 mg PO QAM [facility] Stop: 06/04/24 08:59 Last Admin: 05/14/24 08:11 Dose: 150 mg Metoprolol Succinate (Metoprolol Succ 25mg Ext Rel Tab) 125 mg PO QPM [facility] Stop: 06/11/24 20:59 Last Admin: 05/13/24 21:14 Dose: 125 mg Metoprolol Tartrate (Metoprolol Tartrate 1 Mg/Ml Vial) 5 mg IV Q6H PRN; Protocol PRN Reason: Tachycardia Stop: 06/03/24 17:14 Last Admin: 05/13/24 14:00 Dose: 5 mg Miconazole Nitrate (Miconazole Nitrate Powder 85 Gm) 1 appln EXT PRN PRN PRN Reason: Affected Skin Folds Stop: 06/13/24 12:31 Mirtazapine (Mirtazapine Tab 15 Mg Tab) 15 mg PO HS [facility] Stop: 06/03/24 20:59 Last Admin: 05/13/24 21:15 Dose: 15 mg Miscellaneous (Carbohydrates For Hypoglycemia ) 15 - 30 gm PO UD PRN PRN Reason: Hypoglycemia Protocol Stop: 06/03/24 16:45 Miscellaneous (*Colchicine*Order Awaiting Action) 1 each N/A QS [facility] Stop: 06/04/24 17:59 Last Admin: 05/14/24 08:03 Dose: Not Given Ondansetron HCl (Ondansetron Inj 2 Mg/Ml 2 Ml Vial) 4 mg IV Q6H PRN PRN Reason: Nausea Stop: 06/03/24 16:45 Pantoprazole Sodium (Pantoprazole 40 Mg Tab) 40 mg PO QAM [facility] Stop: 06/04/24 08:59 Last Admin: 05/14/24 08:10 Dose: 40 mg Polyethylene Glycol (Polyethylene (Miralax) 17 Gm Pack) 17 gm PO DAILY PRN PRN Reason: Constipation Stop: 06/03/24 16:45 Last Admin: 05/14/24 09:14 Dose: 17 gm Potassium Chloride (Potassium Chloride 10 Meq Tabcr) 30 meq PO QAM [facility] Stop: 06/04/24 08:59 Last Admin: 05/14/24 08:09 Dose: 30 meq Pravastatin Sodium (Pravastatin Sod 40 Mg Tab) 40 mg PO HS [facility] Stop: 06/03/24 20:59 Last Admin: 05/13/24 21:15 Dose: 40 mg Sennosides (Senna 8.6 Mg Tab) 8.6 mg PO BID PRN PRN Reason: constipation Stop: 06/03/24 17:05 Last Admin: 05/14/24 05:56 Dose: 8.6 mg Spironolactone (Spironolactone 25 Mg Tab) 25 mg PO BID [facility] Stop: 06/04/24 08:59 Last Admin: 05/14/24 08:13 Dose: 25 mg Tamsulosin HCl (Tamsulosin Hcl 0.4 Mg Cap) 0.4 mg PO QPM [facility] Stop: 06/03/24 20:59 Last Admin: 05/13/24 21:15 Dose: 0.4 mg Torsemide (Torsemide 100 Mg Tab) 100 mg PO QAM [facility] Stop: 06/14/24 08:59 Tramadol HCl (Tramadol Hcl 50 Mg Tablet) 50 mg PO BID [facility] Stop: 06/03/24 20:59 Last Admin: 05/14/24 08:09 Dose: 50 mg Vitamin D (Cholecalciferol 25 Mcg (1000 Units) Tab) 50 mcg PO QAM [facility] Stop: 06/04/24 08:59 Last Admin: 05/14/24 08:11 Dose: 50 mcg
[2024-05-14] MEDS: APIXABAN 5 MG TABLET PO SCH (21:07)
[2024-05-15 04:27] VITALS: O2SAT 98
[2024-05-15 07:52] LABS: BUN Creatinine Ratio 51.3 (10-20); Calcium 9.7 mg/dl (8.6-10.3); Est GFR (African American) 67.8 ml/min; Est GFR (Non-African American) 58.5 ml/min; Magnesium 2.2 mg/dl (1.7-2.4); Potassium 4.5 mmol/L (3.5-5.1)
[2024-05-15 08:04] LABS: INR 1.6 (0.9-1.1); Prothrombin Time 16.6 Seconds (9.0-12.0)
[2024-05-15] MEDS: TORSEMIDE 100 MG TAB PO SCH (08:34)
[2024-05-15 08:35] VITALS: RESP 18; TEMP 97.3
--- NOTE | 2024-05-15 09:51 | Hospitalist Progress Note ---
Date of Service May 15, 2024 Assessment & Plan (1) Hypoxia: (2) Pulmonary edema: (3) HTN (hypertension): (4) HLD (hyperlipidemia): (5) Atrial fibrillation: (6) Hypothyroidism: (7) Diabetes mellitus, type 2: Plan: 83 y/o M presents to the ED 05/04 from [facility] with worsening SOB and hypoxia (down to 88%) that has been occurring over the last week. Pt does not wear O2 at baseline. Patient is a resident of [facility] and is on Ellipta for the last 6 months. His family visits him on a daily basis and noted that as he was ambulating with his walker to the dining young over this past week that he became more short of breath and required pauses to catch his breath while he was walking. Pt denies orthopnea and reports sleeping in a recliner. Baseline weight around 250 lbs. Noted weight gain of 4-5 lbs over the last week. His torsemide and Aldactone was increased recently to 100 mg daily and 25 mg bid resp. Patient was recently admitted to [facility] 03/06 to 03/09 for A-fib with RVR and acute on chronic exacerbation of HFrEF. Additional past medical history includes A-fib, HFrEF, [id number] diabetes, hypothyroidism, and BPH. He is being managed for the following: Acute on Chronic HFrEF: Hypoxia: Pulmonary edema: Pleural effusion At admission: Leukocytosis 13.18, BNP 393, CT chest neg for pneumonia, UA neg. Trop and resp biofire neg. Chest imaging w/ mod right pleural effusion and mild pulm edema. ECHO: Most recent ECHO from 03/06/24: EF 45-50% which is improved from previous ECHO 10/25: EF45-49%, with Mild MR/TR Cardio on board, being diuresed. Na improved, aldactone resumed 05/09. Pulm evaled-Appreciate input and recommendation Pt declined thoracentesis. Coumadin resumed, hep bridge to continue until pt/inr > 2. INR 1.8 today. Additional 2.5 mg of coumadin 05/11 and 05/13. Per Cardio's d/w fam and patient, they would like to transition to eliquis, eliquis sent for cost eval. Fluid restriction 1500mL, I/O. Repeat CXR 9/23 reviewed, improved congestion and rt pleural effusion per my interpretation. Remains stable medically with no more cardiac symptoms and denies any respiratory symptoms at rest Has been on heparin and Coumadin with INR at 1.7 Will check INR tomorrow and likely restart Eli[facility] Will DC Hudson catheter and await urination Remains medically stable without any significant symptoms He has been passing urine and has had bowel movement He will be discharged to [facility] Afib RVR: Pt w/ chronic afib, Goes into rvr on and off, no associated symptoms. currently rate better controlled. c/w anticoagulation as above. Digoxin freq increased to 5x/week. Metoprolol increased to 150 mg bid. Heart rate remains stable at 77 and the blood pressure is controlled Started on Eliquis since last evening UTI: 05/11 ucx +ve for E coli. complete rocephin x 5 days. Other chronic medical conditions: Continue with/resume home meds as when able. Hypertension: Takes metoprolol. Hyperlipidemia: Takes pravastatin Hypothyroidism: Takes levothyroxine T2DM: Chronic, takes metformin. Sliding scale insulin while in hospital. BPH: Chronic, takes finasteride. Continue. Continue to follow-up with urology as prior. Disposition: PCP: Dr. Scherer Code Status: VTE Prophylaxis: On hep drip, Coumadin . follow pt/inr Discussed with the son Admission and Anticipated Discharge Date Admission Date: May 04, 2024 Subjective 05/14/2024 The patient was seen and examined in telemetry unit in presence of the son He has been feeling much better and denies any significant symptoms [facility] 05/15/2024 The patient was seen and examined in telemetry unit in presence of the family members He has been feeling much better and denies any significant symptoms Has been passing urine and moving bowel and is ambulating in the room without any difficulties He will be discharged to [facility] Review of Systems Review of Systems: All systems reviewed and are unremarkable except as noted below Physical Exam Physical Exam: Sitting on a chair without any acute distress Constitutional: well developed, well nourished, + ill appearing and + obese Eyes: PERRL, conjunctivae normal, anicteric sclerae ENMT: external ear and nose normal, oropharynx normal Neck: trachea midline, no thyromegaly Respiratory: no respiratory distress Auscultation: + diminished lung sounds and + crackles (Minimal crackles at the bases) Cardiovascular: Rate/Rhythm: regular rate and regular rhythm; not tachycardic Heart Sounds: normal S1 and normal S2; no murmur Extremities: + edema (Trace edema bilaterally with chronic skin changes) Gastrointestinal (Abdomen): Inspection/Auscultation: normal bowel sounds; abdomen not distended Percussion/Palpation: abdomen soft; abdomen nontender Neurologic: normal touch/pain/proprioception and moves all extremities; no focal motor deficits Psychiatric: A+Ox3, euthymic affect Lymphatic: no cervical or axillary lymphadenopathy Results & Data Results & Data Vital Signs (Past 12 Hours) Vital Signs Temp Pulse Pulse Pulse Resp BP Pulse Ox 05/15/24 08:33 36.3 C L 77 18 122/78 98 05/15/24 07:12 72 05/15/24 04:00 36.4 C L 74 16 120/80 98 05/14/24 22:55 36.4 C L 77 16 118/74 96 O2 Del Method 05/15/24 08:33 Room Air 05/15/24 07:12 05/15/24 04:00 Room Air 05/14/24 22:55 Room Air Laboratory Results BMP 05/15/24 06:56 Sodium 132 L Potassium 4.5 Chloride 94 L Carbon Dioxide 27 BUN 59 H Creatinine 1.15 Glucose 160 H Calcium 9.7 Medications Administered Current Inpatient Medications Acetaminophen (Acetaminophen 325 Mg Tab) 650 mg PO Q4H PRN PRN Reason: Pain or Fever Stop: 06/03/24 16:45 Last Admin: 05/05/24 17:47 Dose: 650 mg Al Hydrox/Mg Hydrox/Simethicone (Aluminum/Magnesium Susp 30 Ml Udc) 15 ml PO Q4H PRN PRN Reason: Dyspepsia Stop: 06/03/24 16:45 Allopurinol (Allopurinol 300 Mg Tab) [id number] Stop: 06/04/24 08:59 Last Admin: 05/15/24 08:29 Dose: 300 mg Apixaban (Apixaban 5 Mg Tablet) 5 mg PO BID [facility] Stop: 06/13/24 20:59 Last Admin: 05/15/24 08:31 Dose: 5 mg Aspirin (Aspirin 81 Mg Ectab) 81 mg PO QAM [facility] Stop: 06/04/24 08:59 Last Admin: 05/15/24 08:30 Dose: 81 mg Calcium Carbonate (Calcium Carbonate 500 Mg Chewable Tab) 500 mg PO BID PRN PRN Reason: gerd Stop: 06/03/24 17:09 Last Admin: 05/05/24 08:41 Dose: 500 mg Dextrose (Dextrose 50% 50 Ml Syringe) 25 - 50 ml IV UD PRN; Protocol PRN Reason: Hypoglycemia Protocol Stop: 06/03/24 16:45 Digoxin (Digoxin 0.125 Mg Tab) 0.125 mg PO [id number] [facility] Stop: 06/09/24 15:59 Last Admin: 05/13/24 16:40 Dose: 0.125 mg Famotidine (Famotidine 20 Mg Tab) 20 mg PO QAM [facility] Stop: 06/04/24 08:59 Last Admin: 05/15/24 08:32 Dose: 20 mg Finasteride (Finasteride 5 Mg Tab) 5 mg PO QAM [facility] Stop: 06/04/24 08:59 Last Admin: 05/15/24 08:32 Dose: 5 mg Fluticasone Propionate (Fluticasone Propionate Na Spr 16 Gm Btl) 2 sprays NA BI D PRN PRN Reason: Nasal Congestion Stop: 06/03/24 16:48 Glucagon (Glucagon For Inj 1 Mg Vial) 1 mg SQ UD PRN; Protocol PRN Reason: Hypoglycemia Protocol Stop: 06/03/24 16:45 Glucose (Glucose 40% Gel 15 Gm Tube) 15 - 30 gm PO UD PRN; Protocol PRN Reason: Hypoglycemia Protocol Stop: 06/03/24 16:45 Glucose (Glucose 10 Tab/Tube) 4 - 8 tab PO UD PRN; Protocol PRN Reason: Hypoglycemia Treatment Stop: 06/03/24 16:45 Ceftriaxone Sodium (Rocephin) 2,000 mg in 50 mls @ 100 mls/hr IV Q24H [facility] Stop: 05/22/24 00:14 Last Infusion: 05/15/24 01:01 Dose: Infused Insulin Aspart (Insulin Aspart Per Unit Charge) 0 units SC ACHS [facility] Stop: 06/03/24 16:45 Last Admin: 05/15/24 08:24 Dose: 4 units Levothyroxine Sodium (Levothyroxine Sodium 88 Mcg Tablet) 88 mcg PO DAILYBB [facility] Stop: 06/04/24 06:29 Last Admin: 05/15/24 06:04 Dose: 88 mcg Magnesium Hydroxide (Magnesium Hydroxide Susp 30 Ml Udc) 30 ml PO Q12H PRN PRN Reason: Constipation Stop: 06/03/24 16:45 Metoprolol Succinate (Metoprolol Succ 50mg Ext Rel Tab) 150 mg PO QAM [facility] Stop: 06/04/24 08:59 Last Admin: 05/15/24 08:32 Dose: 150 mg Metoprolol Succinate (Metoprolol Succ 25mg Ext Rel Tab) 125 mg PO QPM [facility] Stop: 06/11/24 20:59 Last Admin: 05/14/24 21:07 Dose: 125 mg Metoprolol Tartrate (Metoprolol Tartrate 1 Mg/Ml Vial) 5 mg IV Q6H PRN; Protocol PRN Reason: Tachycardia Stop: 06/03/24 17:14 Last Admin: 05/14/24 18:34 Dose: 5 mg Miconazole Nitrate (Miconazole Nitrate Powder 85 Gm) 1 appln EXT PRN PRN PRN Reason: Affected Skin Folds Stop: 06/13/24 12:31 Mirtazapine (Mirtazapine Tab 15 Mg Tab) 15 mg PO HS [facility] Stop: 06/03/24 20:59 Last Admin: 05/14/24 21:07 Dose: 15 mg Miscellaneous (Carbohydrates For Hypoglycemia ) 15 - 30 gm PO UD PRN PRN Reason: Hypoglycemia Protocol Stop: 06/03/24 16:45 Miscellaneous (*Colchicine*Order Awaiting Action) 1 each N/A QS [facility] Stop: 06/04/24 17:59 Last Admin: 05/15/24 08:10 Dose: Not Given Ondansetron HCl (Ondansetron Inj 2 Mg/Ml 2 Ml Vial) 4 mg IV Q6H PRN PRN Reason: Nausea Stop: 06/03/24 16:45 Pantoprazole Sodium (Pantoprazole 40 Mg Tab) 40 mg PO QAM [facility] Stop: 06/04/24 08:59 Last Admin: 05/15/24 08:31 Dose: 40 mg Polyethylene Glycol (Polyethylene (Miralax) 17 Gm Pack) 17 gm PO DAILY PRN PRN Reason: Constipation Stop: 06/03/24 16:45 Last Admin: 05/14/24 09:14 Dose: 17 gm Potassium Chloride (Potassium Chloride 10 Meq Tabcr) 30 meq PO QAM [facility] Stop: 06/04/24 08:59 Last Admin: 05/15/24 08:33 Dose: 30 meq Pravastatin Sodium (Pravastatin Sod 40 Mg Tab) 40 mg PO HS [facility] Stop: 06/03/24 20:59 Last Admin: 05/14/24 21:07 Dose: 40 mg Sennosides (Senna 8.6 Mg Tab) 8.6 mg PO BID PRN PRN Reason: constipation Stop: 06/03/24 17:05 Last Admin: 05/14/24 17:49 Dose: 8.6 mg Spironolactone (Spironolactone 25 Mg Tab) 25 mg PO BID [facility] Stop: 06/04/24 08:59 Last Admin: 05/15/24 08:34 Dose: 25 mg Tamsulosin HCl (Tamsulosin Hcl 0.4 Mg Cap) 0.4 mg PO QPM [facility] Stop: 06/03/24 20:59 Last Admin: 05/14/24 21:08 Dose: 0.4 mg Torsemide (Torsemide 100 Mg Tab) 100 mg PO QAM [facility] Stop: 06/14/24 08:59 Last Admin: 05/15/24 08:34 Dose: 100 mg Tramadol HCl (Tramadol Hcl 50 Mg Tablet) 50 mg PO BID [facility] Stop: 06/03/24 20:59 Last Admin: 05/15/24 08:33 Dose: 50 mg Vitamin D (Cholecalciferol 25 Mcg (1000 Units) Tab) 50 mcg PO QAM [facility] Stop: 06/04/24 08:59 Last Admin: 05/15/24 08:29 Dose: 50 mcg
[2024-05-15 11:27] VITALS: BP 149/89; PULSE 74
--- NOTE | 2024-05-16 08:29 | Discharge Summary ---
Date of Service May 16, 2024 Admission HPI Per Admitting Provider Mr. Bone is an 83 year old male that presents to the ED from [facility] with worsening shortness of breath and hypoxia that has been occurring over the last week. Patient is a resident of [facility] and is [facility] for the last 6 months. His family visits him on a daily basis and noted that as he was ambulating with his walker to the dining young over this past week that he became more short of breath and required pauses to catch his breath while he was walking. They reported that he became tachypneic and had decreased saturations down to 88%. He denies orthopnea and reports sleeping in a recliner. His baseline weight is around 250 pounds. Noted weight gain of 4 to 5 pounds over the last week. Patient takes torsemide and dosing was increased on 04/20 from 20 mg daily to 100 mg daily. Aldactone dosing was changed to 25 mg twice daily as well from 25 mg in AM and 12.5 mg in PM. Patient was recently admitted to [facility] 03/06 to 03/09 for A-fib with RVR and acute on chronic exacerbation of HFrEF. Additional past medical history includes A-fib, HFrEF, toz-fubcgzh-iypzkyyfr diabetes, hypothyroidism, and BPH. Currently patient denies headache, dizziness, visual or auditory changes, chest pain, shortness of breath at rest. Patient denies nausea, vomiting, diarrhea, recent falls or trauma. On examination patient is sitting in bedside chair in no apparent distress and able to speak in complete sentences. Patient is not requiring any supplemental oxygen at this time. Bibasilar crackles noted in posterior lungs on auscultation. Bilateral +4 lower extremity edema. Legs are wrapped. Patient will be admitted for further evaluation and management of his acute on chronic HFrEF with fluid restriction, strict I/O , IV Lasix and chest CT to rule out infectious causes, urinalysis and cardiology consultation. Please see A/P for further details. Admission Exam Per Admitting Provider Physical Exam: Neuro: AAOx4, PERRLA, no aphagia, memory changes, CNII-XII grossly intact HEENT: head normocephalic, moist mucus membranes CV: S1/S2, (-) M/G/R, cap refill < 3 seconds (+) B/L LE edema +4. Legs wrapped. Resp:On RA. Bibasilar crackles in posterior bases. GI: Abdomen S/NT/ND, Ax4 bowel sounds, (-) CVA tenderness Musculoskeletal: 5/5 B/L UE strength, 5/5 B/L LE strength. No gait disturbance Skin: (-) rashes , (-) erythema. Psych: euthymic mood Principal Diagnosis Acute on chronic CHF, A-fib with RVR Discharge Exam Sitting on a chair without any acute distress Constitutional well developed, well nourished, + ill appearing and + obese Eyes PERRL, conjunctivae normal, anicteric sclerae ENMT external ear and nose normal, oropharynx normal Neck trachea midline, no thyromegaly Respiratory no respiratory distress Auscultation: + diminished lung sounds and + crackles (Minimal crackles at the bases) Cardiovascular Rate/Rhythm: regular rate and regular rhythm; not tachycardic Heart Sounds: normal S1 and normal S2; no murmur Extremities: + edema (Trace edema bilaterally with chronic skin changes) Gastrointestinal (Abdomen) Inspection/Auscultation: normal bowel sounds; abdomen not distended Percussion/Palpation: abdomen soft; abdomen nontender Neurologic normal touch/pain/proprioception and moves all extremities; no focal motor deficits Psychiatric A+Ox3, euthymic affect Lymphatic no cervical or axillary lymphadenopathy Discharge Data Allergies Allergy/AdvReac Type Severity Reaction Status Date / Time adhesive AdvReac Intermediate sensitive Verified 03/06/24 00:25 skin to strong adhesives Consultations 05/04/24 13:30 ED Decision to Admit Stat 05/04/24 16:06 Consult Cardiology Routine 05/04/24 16:51 Consult Pulmonology Routine Ordered Studies 05/04/24 14:41 CT chest diagnostic wo con Routine Hospital Course (1) Hypoxia: (2) Pulmonary edema: (3) HTN (hypertension): (4) HLD (hyperlipidemia): (5) Atrial fibrillation: (6) Hypothyroidism: (7) Diabetes mellitus, type 2: 83 y/o M presents to the ED 05/04 from [facility] with worsening SOB and hypoxia (down to 88%) that has been occurring over the last week. Pt does not wear O2 at baseline. Patient is a resident of [facility] and is on Ellipta for the last 6 months. His family visits him on a daily basis and noted that as he was ambulating with his walker to the dining young over this past week that he became more short of breath and required pauses to catch his breath while he was walking. Pt denies orthopnea and reports sleeping in a recliner. Baseline weight around 250 lbs. Noted weight gain of 4-5 lbs over the last week. His torsemide and Aldactone was increased recently to 100 mg daily and 25 mg bid resp. Patient was recently admitted to [facility] 03/06 to 03/09 for A-fib with RVR and acute on chronic exacerbation of HFrEF. Additional past medical history includes A-fib, HFrEF, kex-zlagwgs-gruraybkx diabetes, hypothyroidism, and BPH. He is being managed for the following: Acute on Chronic HFrEF: Hypoxia: Pulmonary edema: Pleural effusion At admission: Leukocytosis 13.18, BNP 393, CT chest neg for pneumonia, UA neg. Trop and resp biofire neg. Chest imaging w/ mod right pleural effusion and mild pulm edema. ECHO: Most recent ECHO from 03/06/24: EF 45-50% which is improved from previous ECHO 10/25: EF45-49%, with Mild MR/TR Cardio on board, being diuresed. Na improved, aldactone resumed 05/09. Pulm evaled-Appreciate input and recommendation Pt declined thoracentesis. Coumadin resumed, hep bridge to continue until pt/inr > 2. INR 1.8 today. Additional 2.5 mg of coumadin 05/11 and 05/13. Per Cardio's d/w fam and patient, they would like to transition to eliquis, juditquis sent for cost eval. Fluid restriction 1500mL, I/O. Repeat CXR 05/09 reviewed, improved congestion and rt pleural effusion per my interpretation. Remains stable medically with no more cardiac symptoms and denies any respiratory symptoms at rest Has been on heparin and Coumadin with INR at 1.7 Will check INR tomorrow and likely restart Eliquis on discharge to [facility] tomorrow Will DC Hudson catheter and await urination Remains medically stable without any significant symptoms He has been passing urine and has had bowel movement He will be discharged to [facility] today Afib RVR: Pt w/ chronic afib, Goes into rvr on and off, no associated symptoms. currently rate better controlled. c/w anticoagulation as above. Digoxin freq increased to 5x/week. Metoprolol increased to 150 mg bid. Heart rate remains stable at 77 and the blood pressure is controlled Started on Eliquis since last evening UTI: 05/11 ucx +ve for E coli. complete rocephin x 5 days. Other chronic medical conditions: Continue with/resume home meds as when able. Hypertension: Takes metoprolol. Hyperlipidemia: Takes pravastatin Hypothyroidism: Takes levothyroxine T2DM: Chronic, takes metformin. Sliding scale insulin while in hospital. BPH: Chronic, takes finasteride. Continue. Continue to follow-up with urology as prior. Disposition: PCP: Dr. Scherer Code Status: VTE Prophylaxis: On hep drip, Coumadin . follow pt/inr Discussed with the son Total Time Total Time Spent Total Time Spent (In Minutes): 35 minutes Discharge Plan Discharge Items Patient Disposition: Transfer Inpatient Rehab Fac Reason For Visit: sob Discharge Diagnosis: Acute on chronic CHF, A-fib with RVR Condition on Discharge: Fair Activity: As commented below Activity Comment: Will need to continue PT and OT Non-emergency contact: Primary Care Provider Call non-emergency contact if: you have any medication questions and your symptoms worsen Follow-up/Referrals: [facility] lrStafford [Primary Care Provider] - (Please make an appointment with your PCP within 7 days following discharge from the facility) Diet: Heart Healthy Addtl Attending Provider Instructions: Please take precaution to avoid falls Take your medications as advised Please keep appointments with the healthcare providers Pending Studies at Discharge: No Stand-Alone Forms: My [facility] [place] [employer] ([facility]: [place] Skilled Items Patient informed of condition?: Yes DNR: No Discharge Level of Care: Acute rehab Communicable Disease: No Discharge Prognosis: Stable Lines: None Urinary Catheter: No Medications and DC Order Prescriptions: New Eliquis 5 mg tablet 5 mg PO BID Qty: 60 0RF torsemide 100 mg Tablet 100 mg PO QAM Qty: 30 0RF digoxin [Digitek] 125 mcg (0.125 mg) Tablet 0.125 mg PO [id number] Qty: 30 0RF metoprolol succinate [Toprol XL] 100 mg tablet extended release 24 hr 150 mg PO BID Qty: 90 0RF Continued pravastatin 40 mg tablet 40 mg PO HS levothyroxine 88 mcg tablet 88 mcg PO QAM potassium chloride 20 mEq tablet,ER particles/crystals 30 meq PO QAM allopurinol 300 mg tablet 300 mg PO QAM colchicine 0.6 mg tablet 0.6 mg PO UD PRN (Reason: gout flare) Rx Instructions: only used when having a bowel prep alfuzosin 10 mg tablet extended release 24 hr 10 mg PO QPM Rx Instructions: TAKE THIS MEDICATION ONCE DAILY AFTER A MEAL multivitamin Tablet 1 tab PO QAM tramadol 50 mg Tablet 50 mg PO BID fluticasone propionate [Flonase Allergy Relief] 50 mcg/actuation [place],Suspension 2 spray INTRANASAL BID PRN (Reason: Nasal Congestion) cholecalciferol (vitamin D3) [Vitamin D3] 1,000 unit Tablet 2,000 units PO QAM spironolactone 25 mg tablet 25 mg PO BID Patient Comments: morning 25 mg and evening 12.5 mg. metformin 500 mg tablet extended release 24 hr See Rx Instructions .ROUTE .COMPLEX Patient Comments: 500 in the morning and 1000 in the evening Rx Instructions: TAKES 500 MG QAM, THEN 1,000 MG QPM. triamcinolone acetonide 0.1 % Cream 1 applic TOPICAL BID PRN (Reason: Skin Irritation) Rx Instructions: APPLY TO RASH ON CHIN AND ARMS NEEDED. mupirocin 2 % ointment 1 applic TOPICAL BID PRN (Reason: Skin Irritation) Rx Instructions: APPLY TO GROIN AND FOLDS NEEDED. pantoprazole 40 mg tablet,delayed release (DR/EC) 40 mg PO QAM finasteride 5 mg tablet 5 mg PO QAM ondansetron HCl 4 mg Tablet 4 mg PO Q8H PRN (Reason: Nausea) calcium carbonate [Calcium Antacid] 400 mg calcium (1,000 mg) Tablet,Chewable 400 mg PO BID PRN (Reason: gerd) famotidine 20 mg Tablet 20 mg PO QAM mirtazapine 15 mg Tablet 15 mg PO HS acetaminophen 500 mg Capsule 1,000 mg PO Q6H PRN (Reason: Pain) Saline Mist 0.65 % Aerosol,[place] 1 spray INTRANASAL BID PRN (Reason: Dry Nasal Passages) lactulose 10 gram/15 mL Solution 10 g PO BID PRN (Reason: Constipation) naloxone 4 mg/actuation [place],Non-Aerosol 4 mg INTRANASAL UD PRN (Reason: overdose) aspirin 81 mg Tablet,Delayed Release (Dr/Ec) 81 mg PO QAM senna 8.6 mg capsule 8.6 mg PO BID PRN (Reason: constipation) Qty: 30 0RF polyethylene glycol 3350 [Miralax] 17 gram/dose Powder 17 g PO DAILY PRN (Reason: Constipation) albuterol sulfate 90 mcg/actuation Hfa Aerosol Inhaler 2 puff INHALATION QID PRN (Reason: Shortness Of Breath Or Wheezing) Discontinued metoprolol succinate 50 mg tablet extended release 24 hr See Rx Instructions .ROUTE .COMPLEX Patient Comments: 150 mg morning and 100 in the evening Rx Instructions: TAKES 150 MG QAM, THEN 100 MG QPM digoxin 250 mcg tablet 125 mcg PO [id number] Rx Instructions: TAKE THIS MED EVERY THU/THU/THU warfarin 5 mg tablet See Rx Instructions .ROUTE .COMPLEX Rx Instructions: Takes Coumadin 5 MG Thursday and Thursday. Takes Coumadin 2.5 mg Thursday, Thursday, , Thursday and Thursday. torsemide 20 mg tablet 100 mg PO DAILY Discharge Orders: Discharge Order (Routine); Ordered 05/15/24 Ordered By: Regina Gaona Discharge Order- CHF (Routine); Ordered 05/15/24 Ordered By: Regina Gaona Admission Data Admit Date/Time: 05/04/24 14:30 Attending Provider: Regina Gaona Admit Provider: Dianna Victor Primary Care Provider: [facility] Other Providers: [facility]; Jorden Leal; Ta Landis; [facility]; Dana Beckham; Geraldo Loza; [place] Other Interventions: Discharge Summary Assessment (RN) Last Done: 05/15/24 11:24
== END 2024-05-15 14:22 | DRG 291 ==
LOC: ED 10:34 → SUATTDRO 14:30 → 2N 14:30 → 2S 05-05 15:14